=== PATIENT | female | born 1965 | race Caucasian/White ===

== ENCOUNTER 2023-05-09 10:05 | Outpatient (OUT) | payer OTHER, SELFPAY ==
--- NOTE | 2023-05-09 10:07 | MM_ITS ---
Patient: PAIGE LOCKETT Exam Date: 05/09/2023 : 1965 Gender:F Ordering : Non-Staff Physician Admission #: [id number] Family : AWAIS KHAN Order #: [id number] CLICK HERE TO VIEW EXAM RADIOLOGY REPORT PROCEDURE: MM TOMOSYNTHESIS SCREENING BI COMPARISON: MG MAMM SCREEN 3D [facility] CAD, 01/12/2021. MG MAMM SCREEN [facility] W CAD, 12/18/2017. MG MAMM [facility] SCRN W CAD DIG, 03/30/2016. MG MAMM [facility] SCRN W CAD DIG, 06/10/2009. INDICATIONS: Screening mammogram Z12.31 Calculator Name NCI Breast Cancer Risk Assessment Tool 5 Year Breast Cancer Risk 1.40% Lifetime Breast Cancer Risk 8.90% Personal Breast Cancer No Personal Ovarian Cancer No Treatments None Family Cancers None LOCATION: [facility] BREAST COMPOSITION: Almost entirely fatty. FINDINGS: DIAGNOSTIC CATEGORY 1--NEGATIVE. RIGHT BREAST: No significant suspicious finding. No significant change has occurred. LEFT BREAST: No significant suspicious finding. No significant change has occurred. RECOMMENDATIONS: ROUTINE MAMMOGRAM AND CLINICAL EVALUATION IN 12 MONTHS. PLEASE NOTE: A NORMAL MAMMOGRAM DOES NOT EXCLUDE THE POSSIBILITY OF BREAST CANCER. A CLINICALLY SUSPICIOUS PALPABLE LUMP SHOULD BE BIOPSIED. Dictated by: Neftaly Ayala M.D. on 05/10/2023 at 13:09 Approved by: Neftaly Ayala M.D. on 05/10/2023 at 13:11
== END 2023-05-09 10:06 | disposition home or self-care (01) ==
LOC: MAMMO 10:05
PROVIDERS: PCP Family Medicine
DX: Z12.31 Encounter for screening mammogram for malignant neoplasm of breast (principal)
CPT/HCPCS: 77063; 77067

== ENCOUNTER 2023-07-11 10:41 | Outpatient (OUT) | payer OTHER, SELFPAY ==
[2023-07-11 11:52] LABS: Alanine Aminotransferase 25 U/L (14-59); Albumin Globulin Ratio 0.8; Albumin Level 3.2 g/dL (3.4-5.0); Alkaline Phosphatase 62 U/L (46-116); Anion Gap 13.5; Aspartate Amino Transferase 13 U/L (15-37); BUN Creatinine Ratio 22.9; Bilirubin Total 0.4 mg/dL (0.2-1.0); Calcium 8.7 mg/dL (8.5-10.1); Carbon Dioxide 27.6 mmol/L (21.0-32.0); Chloride 104 mmol/L (98-107); Chol HDL Ratio 2.8; Cholesterol 159 mg/dL (<=200); Estimated GFR (African America >60 (>=60); Estimated GFR (Non-African Ame >60 (>=60); Globulin 4.2 g/dL; Glucose 109 mg/dL (74-106); HDL Cholesterol 57 mg/dL (40-60); Potassium 4.1 mmol/L (3.5-5.1); Sodium 141 mmol/L (136-145); Total Protein 7.4 g/dL (6.4-8.2); Triglycerides 158 mg/dL (<=150); VLDL CHOLESTEROL 31.6 mg/dL
== END 2023-07-11 10:42 | disposition home or self-care (01) ==
PROVIDERS: PCP Family Medicine
DX: R06.02 Shortness of breath (principal); R94.31 Abnormal electrocardiogram [ECG] [EKG]; E78.2 Mixed hyperlipidemia; R53.83 Other fatigue
CPT/HCPCS: 36415; 80053; 80061

== ENCOUNTER 2023-10-10 10:24 | Outpatient (OUT) | payer OTHER, SELFPAY ==
[2023-10-10 10:58] LABS: Basophils Percent Auto 0.6 % (0.2-2.0); Eosinophils Absolute Auto 0.1 10^3/uL (0.0-0.7); Hematocrit 39.5 % (36.0-48.0); Hemoglobin 12.6 g/dL (12.0-16.0); Immature Granulocytes Abs Auto 0.02 10^3/uL (0.00-0.03); Immature Granulocytes Pct Auto 0.3 % (0.0-0.5); Lymphocytes Absolute Auto 2.7 10^3/uL (1.2-3.8); Lymphocytes Percent Auto 40.7 % (20.5-60.0); Mean Corpuscular HGB Conc 31.9 g/dL (29.9-35.2); Mean Corpuscular Hemoglobin 28.6 pg (26.7-34.0); Mean Corpuscular Volume 89.6 fL (81.0-99.0); Mean Platelet Volume 11.6 fL (9.5-13.5); Monocytes Absolute Auto 0.5 10^3/uL (0.3-0.8); Monocytes Percent Auto 6.9 % (1.7-12.0); Neutrophils Absolute Auto 3.2 10^3/uL (1.4-6.5); Neutrophils Percent Auto 49.5 % (43.0-75.0); Platelet Count 259 10^3/uL (150-450); Red Blood Count 4.41 10^6/uL (4.20-5.40); Red Cell Distribution Width 13.2 % (11.0-15.0); White Blood Count 6.5 10^3/uL (4.0-11.0)
[2023-10-10 11:18] LABS: Alanine Aminotransferase 24 U/L (14-59); Albumin Globulin Ratio 0.8; Albumin Level 3.3 g/dL (3.4-5.0); Alkaline Phosphatase 63 U/L (46-116); Anion Gap 14.5; Aspartate Amino Transferase 16 U/L (15-37); BUN Creatinine Ratio 23.4; Bilirubin Direct 0.1 mg/dL (0.0-0.2); Bilirubin Total 0.5 mg/dL (0.2-1.0); Calcium 8.9 mg/dL (8.5-10.1); Carbon Dioxide 28.4 mmol/L (21.0-32.0); Chloride 105 mmol/L (98-107); Estimated GFR (African America >60 (>=60); Estimated GFR (Non-African Ame >60 (>=60); Globulin 4.1 g/dL; Glucose 134 mg/dL (74-106); Potassium 3.9 mmol/L (3.5-5.1); Sodium 144 mmol/L (136-145); Total Protein 7.4 g/dL (6.4-8.2)
[2023-10-10 11:40] LABS: Chol HDL Ratio 2.7; Cholesterol 156 mg/dL (<=200); Estimated Average Glucose 137 mg/dL; Glycohemoglobin A1C 6.4 % (4.5-6.2); HDL Cholesterol 57 mg/dL (40-60); Triglycerides 166 mg/dL (<=150); VLDL CHOLESTEROL 33.2 mg/dL
== END 2023-10-10 10:25 | disposition home or self-care (01) ==
LOC: LAB 10:25
PROVIDERS: PCP Family Medicine; Visit Provider Family Medicine
DX: E78.00 Pure hypercholesterolemia, unspecified (principal); R73.02 Impaired glucose tolerance (oral)
CPT/HCPCS: 36415; 80048; 80061; 80076; 83036; 85025

== ENCOUNTER 2024-02-05 11:22 | Outpatient (OUT) | payer OTHER, SELFPAY ==
[2024-02-05 12:38] LABS: Estimated Average Glucose 120 mg/dL; Glycohemoglobin A1C 5.8 % (4.5-6.2)
[2024-02-05 13:04] LABS: Alanine Aminotransferase 18 U/L (14-59); Albumin Globulin Ratio 0.9; Albumin Level 3.2 g/dL (3.4-5.0); Alkaline Phosphatase 67 U/L (46-116); Anion Gap 11.8; Aspartate Amino Transferase 11 U/L (15-37); Bilirubin Total 0.6 mg/dL (0.2-1.0); Calcium 9.3 mg/dL (8.5-10.1); Carbon Dioxide 28.3 mmol/L (21.0-32.0); Chloride 107 mmol/L (98-107); Chol HDL Ratio 3.3; Cholesterol 146 mg/dL (<=200); Estimated GFR (African America >60 (>=60); Estimated GFR (Non-African Ame >60 (>=60); Globulin 3.4 g/dL; Glucose 113 mg/dL (74-106); HDL Cholesterol 44 mg/dL (40-60); Potassium 3.1 mmol/L (3.5-5.1); Sodium 144 mmol/L (136-145); Total Protein 6.6 g/dL (6.4-8.2); Triglycerides 193 mg/dL (<=150); VLDL CHOLESTEROL 38.6 mg/dL
== END 2024-02-05 11:23 | disposition home or self-care (01) ==
LOC: LAB 11:24
PROVIDERS: PCP Family Medicine
DX: R06.02 Shortness of breath (principal); I11.9 Hypertensive heart disease without heart failure; E78.5 Hyperlipidemia, unspecified; I49.3 Ventricular premature depolarization; F17.200 Nicotine dependence, unspecified, uncomplicated; R73.03 Prediabetes
CPT/HCPCS: 36415; 80053; 80061; 83036

== ENCOUNTER 2024-02-05 11:28 | Outpatient (OUT) | payer OTHER, SELFPAY ==
[2024-02-05 12:23] LABS: Basophils Percent Auto 0.5 % (0.2-2.0); Eosinophils Absolute Auto 0.1 10^3/uL (0.0-0.7); Eosinophils Percent Auto 1.7 % (0.9-7.0); Hemoglobin 13.1 g/dL (12.0-16.0); Immature Granulocytes Abs Auto 0.02 10^3/uL (0.00-0.03); Immature Granulocytes Pct Auto 0.3 % (0.0-0.5); Lymphocytes Absolute Auto 1.9 10^3/uL (1.2-3.8); Lymphocytes Percent Auto 31.7 % (20.5-60.0); Mean Corpuscular Hemoglobin 28.2 pg (26.7-34.0); Mean Corpuscular Volume 88.2 fL (81.0-99.0); Mean Platelet Volume 12.9 fL (9.5-13.5); Monocytes Absolute Auto 0.3 10^3/uL (0.3-0.8); Neutrophils Absolute Auto 3.7 10^3/uL (1.4-6.5); Neutrophils Percent Auto 60.8 % (43.0-75.0); Platelet Count 231 10^3/uL (150-450); Red Blood Count 4.65 10^6/uL (4.20-5.40); Red Cell Distribution Width 13.6 % (11.0-15.0); White Blood Count 6.1 10^3/uL (4.0-11.0)
[2024-02-05 12:57] LABS: Bilirubin Direct 0.2 mg/dL (0.0-0.2)
== END 2024-02-05 11:29 | disposition home or self-care (01) ==
LOC: LAB 11:30
PROVIDERS: PCP Family Medicine
DX: R06.02 Shortness of breath (principal); I11.9 Hypertensive heart disease without heart failure; E78.5 Hyperlipidemia, unspecified; I49.3 Ventricular premature depolarization; F17.200 Nicotine dependence, unspecified, uncomplicated; R73.03 Prediabetes; K91.2 Postsurgical malabsorption, not elsewhere classified; Z98.84 Bariatric surgery status
CPT/HCPCS: 36415; 80053; 80061; 82248; 82306; 82607; 82746; 83036; 83540; 84425; 85025

== ENCOUNTER 2024-03-03 11:53 | Emergency (ER) | payer OTHER, SELFPAY ==
[2024-03-03 12:01] VITALS: BP 155/113; PULSE 94; TEMP 37.1; O2SAT 96; BMI 45.9
--- NOTE | 2024-03-03 12:05 | CT_ITS ---
[address] [address] Patient Name: PAIGE LOCKETT MRN: [id number] date: 1965 Sex: F Assigned Patient Location: ER Current Patient Location: ER Accession/Order Number: [id number] Exam Date: 03/03/2024 12:20 Report Date: 03/03/2024 12:48 At the request of: PLACIDO CUBA Procedure: CT abdomen pelvis wo con EXAMINATION: CT abdomen pelvis wo con HISTORY: hematuria , dysuria, lower abdominal pain COMPARISON: No relevant comparison available. TECHNIQUE: Axial, Coronal, and Sagittal images were obtained without and/or with IV contrast as indicated by examination type. Dose reduction techniques were achieved by using automated exposure control and/or adjustment of mA and/or kV according to patient size and/or use of iterative reconstruction technique. FINDINGS: LUNG BASES: No visible pulmonary or pleural disease. LIVER: No enlargement, atrophy, suspicious density, or significant focal lesion. BILIARY: Cholecystectomy. PANCREAS: No lesion, fluid collection, or abnormal duct dilatation. SPLEEN: No enlargement or focal lesion. ADRENALS: No mass or enlargement. KIDNEYS: No mass, obstruction, or calcification. BOWEL/MESENTERY: Prior gastric bypass surgery. No visible mass, obstruction, or bowel wall thickening. Mild diverticulosis of distal colon. AORTA/VASCULAR: No aneurysm or dissection. RETROPERITONEUM: No mass or adenopathy. LYMPH NODES: No adenopathy. URINARY BLADDER: Completely empty. No visible focal wall thickening, lesion, or calculus. PELVIC ORGANS: No visible mass. Pelvic organs appropriate for patient age. ABDOMINAL WALL: No mass or hernia. BONES: No bony lesion or fracture. OTHER: Negative. CT/CT abdomen pelvis wo con IMPRESSION: 1. No urinary tract calculi, mass, obstructive uropathy. 2. Limited evaluation of the urinary bladder since it is completely empty. No stones or appreciable wall thickening. 3. Prior gastric bypass surgery. 4. Mild colonic diverticulosis. Electronically authenticated by: KATE CARLOS Date: 03/03/2024 12:48
[2024-03-03 12:42] LABS: Bilirubin Urine COLOR INTERFERENCE (NEGATIVE); Blood Urine COLOR INTERFERENCE (NEGATIVE); Clarity Urine CLOUDY (CLEAR); Color Urine DK. BROWN (YELLOW); Glucose Urine UA COLOR INTERFERENCE mg/dL (NEGATIVE); Ketones Urine COLOR INTERFERENCE mg/dL (NEGATIVE); Leukocyte Esterase Urine COLOR INTERFERENCE (NEGATIVE); Nitrite Urine COLOR INTERFERENCE (NEGATIVE); Protein Urine COLOR INTERFERENCE mg/dL (NEG/TRACE); Urine Microscopic Indicated YES; Urobilinogen Urine COLOR INTERFERENCE EU/dL (0.2-1.0); pH Urine COLOR INTERFERENCE (5.0-9.0)
[2024-03-03 12:47] LABS: Bacteria Urine SMALL #/HPF (NONE SEEN); Cast Seen? NONE SEEN #/LPF (NONE SEEN); Crystals Seen? None Seen #/HPF (None Seen); Mucus Urine NONE SEEN (NONE SEEN); RBC Urine >100 #/HPF (0-2); Squamous Epithelial Cell Urine RARE #/LPF (NONE/RARE); Urine Culture Indicated YES
[2024-03-03] MEDS: PHENAZOPYRIDINE 100 MG TABLET 200 MG PO (14:09)
[2024-03-03] MEDS: CIPROFLOXACIN HCL 500 MG TABLET PO (14:09)
--- NOTE | 2024-03-03 14:11 | ED_ITS ---
HPI - Female Genitourinary General Chief complaint: Urogenital-Female Stated complaint: BLOOD IN URINE Time Seen by Provider: 03/03/24 12:05 Source: patient Mode of arrival: walk-in Limitations: no limitations History of Present Illness HPI Narrative: The patient presenting to us with a 24 hours history of hematuria and burning with urination, she is denying any vaginal bleeding or rectal bleeding she mentioned that he have a history of hysterectomy, she also have no flank pain or abdominal pain no nausea no vomiting no fever no chills no other concerns. Related Data Home Medications ?Medication ?Instructions ?Recorded ?Confirmed albuterol sulfate 2.5 mg/3 mL 2.5 mg inhalation PRN 03/03/24 03/03/24 (0.083 %) solution for nebulization cyanocobalamin (vitamin B-12) 1,000 mcg PO DAILY 03/03/24 03/03/24 1,000 mcg sublingual tablet hydrochlorothiazide 50 mg tablet 50 mg PO PRN feet swelling 03/03/24 03/03/24 lisinopril 40 mg tablet 40 mg PO DAILY 03/03/24 03/03/24 montelukast 10 mg tablet 10 mg PO PRN 03/03/24 03/03/24 omeprazole 40 mg capsule,delayed 40 mg PO BID 03/03/24 03/03/24 release vitamin with calcium 1 tab PO DAILY 03/03/24 03/03/24 no.72-iron 27 mg-folic acid 1 mg tablet (WesTab Plus) rosuvastatin 40 mg tablet 40 mg PO DAILY 03/03/24 03/03/24 Previous Rx's ?Medication ?Instructions ?Recorded ciprofloxacin HCl 750 mg tablet 750 mg PO BID #10 tabs 03/03/24 phenazopyridine 200 mg tablet 200 mg PO Q8H PRN pain 3 days #10 03/03/24 (Pyridium) tabs Allergies Allergy/AdvReac Type Severity Reaction Status Date / Time cefuroxime [From Ceftin] Allergy Intermediate Abdominal Verified 03/03/24 12:09 Pain sertraline [From Zoloft] Allergy Intermediate Verified 03/03/24 12:09 silk Allergy Intermediate Blister Verified 03/03/24 12:09 tramadol [From Ultram] Allergy Intermediate Hives Verified 03/03/24 12:09 NSAIDS (Non-Steroidal Allergy Mild Verified 03/03/24 12:09 Anti-Inflamma Review of Systems ROS Status of ROS 10 or more systems reviewed and unremark able except as noted in history and below Exam Narrative Exam Narrative: Nurses notes and vital signs reviewed and patient is not hypoxic. General: Well-appearing and in no apparent distress. Skin: Warm, dry, no pallor noted. No rash. Head: Normocephalic, atraumatic. Neck: Supple, non-tender. Eye: Pupils are equal, round and EOMI. No scleral icterus. Ears, Nose, Mouth, and Throat: TM are clear, no nasal mucosal hypertrophy. Ora l mucosa is moist, no posterior oropharynx erythema, uvula is mid-line Cardiovascular: Regular Rate and Rhythm without murmur, gallop or rub. Respiratory: No accessory muscle use or respiratory distress. Lungs are clear to auscultation, no wheezing, rales or rhonchi Chest Wall: no tenderness Back: No midline thoracic or lumbar vertebral tenderness. No CVA tenderness Musculoskeletal: normal ROM, no calf or popliteal tenderness, no lower extremity edema/swelling GI: Abdomen is soft, non-distended. Normal bowel sounds. No masses appreciated. No tenderness to palpation. No rebound, guarding, or rigidity noted. Neurological: A&O x4. No cranial nerve dysfunction observed. No truncal ataxia. Moves all extremities. Sensation intact. Psychiatric: Cooperative and interactive. Normal mood and affect. Pelvic examination The patient have no source of bleeding found on examination, no foreign body and no rash and no discharge Constitutional Vital Signs, click to edit/add: Last Vital Signs Temp 98.8 F 03/03/24 12:01 Pulse 94 H 03/03/24 12:01 Resp 20 03/03/24 12:01 BP 155/113 H 03/03/24 12:01 Pulse Ox 96 03/03/24 12:01 O2 Del Method Room Air 03/03/24 12:01 Course Vital Signs Vital signs: Vital Signs Temperature 98.8 F 03/03/24 12:01 Pulse Rate 94 H 03/03/24 12:01 Respiratory Rate 20 03/03/24 12:01 Blood Pressure 155/113 H 03/03/24 12:01 Pulse Oximetry 96 03/03/24 12:01 Oxygen Delivery Method Room Air 03/03/24 12:01 Temperature 98.8 F 03/03/24 12:01 Pulse Rate 94 H 03/03/24 12:01 Respiratory Rate 20 03/03/24 12:01 Blood Pressure 155/113 H 03/03/24 12:01 Pulse Oximetry 96 03/03/24 12:01 Oxygen Delivery Method Room Air 03/03/24 12:01 MDM - Female Genitourinary MDM Narrative Medical decision making narrative: The patient urinalysis is showing possible infection with the patient presentation hematuria should be covered with ciprofloxacin as she have allergy to Ceftin Urine culture was sent CT abdomen pelvis showed no acute pathology the patient was treated with Pyridium as well as Cipro Instructed on hydration The patient is to follow up with primary care physician in next 2-3 days or to return to the emergency department should any of the signs or symptoms worsen or new symptoms develop. The patient agrees with the following Diagnosis and Treatment plan and the patient will be discharged home. Lab Data Labs: Lab Results 03/03/24 Range/Units 12:00 Urine Color Dk. brown (YELLOW) Urine Clarity Cloudy A (CLEAR) Urine pH Color interference A (5.0-9.0) Ur Specific [place] 1.020 (1.005-1.025) Urine Protein Color interference A (NEG/TRACE) mg/dL Urine Glucose (UA) Color interference A (NEGATIVE) mg/dL Urine Ketones Color interference A (NEGATIVE) mg/dL Urine Occult Blood Color interference A (NEGATIVE) Urine Nitrite Color interference A (NEGATIVE) Urine Bilirubin Color interference A (NEGATIVE) Urine Urobilinogen Color interference A (0.2-1.0) EU/dL Ur Leukocyte Esterase Color interference A (NEGATIVE) Urine RBC >100 A (0-2) #/HPF Urine WBC 5-10 A (NONE SEEN) #/HPF Ur Squamous Epith Cells Rare (NONE/RARE) #/LPF Urine Crystals None seen (None Seen) #/HPF Urine Bacteria Small A (NONE SEEN) #/HPF Urine Casts None seen (NONE SEEN) #/LPF Urine Mucus None seen (NONE SEEN) Ur Culture Indicated? Yes Discharge Plan Discharge Stand Alone Forms: Portal Instructions Chief Complaint: Urogenital-Female Clinical Impression: Cystitis Urinary tract infection Qualifiers: Urinary tract infection type: acute cystitis Hematuria presence: with hematuria Qualified Code(s): N30.01 - Acute cystitis with hematuria Patient Disposition: Home, Self-Care Time of Disposition Decision: 14:05 Condition: Good Prescriptions / Home Meds: New phenazopyridine [Pyridium] 200 mg tablet 200 mg PO Q8H PRN (Reason: pain) 3 Days Qty: 10 0RF ciprofloxacin HCl 750 mg tablet 750 mg PO BID Qty: 10 0RF Discontinued ondansetron HCl 4 mg tablet 4 mg PO PRN No Action albuterol sulfate 2.5 mg /3 mL (0.083 %) solution for nebulization 2.5 mg inhalation PRN cyanocobalamin (vitamin B-12) 1,000 mcg tablet, sublingual 1,000 mcg PO DAILY hydrochlorothiazide 50 mg tablet 50 mg PO PRN lisinopril 40 mg tablet 40 mg PO DAILY montelukast 10 mg tablet 10 mg PO PRN omeprazole 40 mg capsule,delayed release(DR/EC) 40 mg PO BID WesTab Plus 27 mg iron- 1 mg tablet 1 tab PO DAILY rosuvastatin 40 mg tablet 40 mg PO DAILY Patient Comments: 1/2 pill due to joint pain Print Language: Trinidadian Instructions: Urinary Tract Infection in Women (DC) Referrals: AWAIS KHAN [Primary Care Provider] - 1 week
[2024-03-03 14:18] VITALS: BP 154/87; PULSE 87; O2SAT 99
== END 2024-03-03 14:19 | disposition home or self-care (01) ==
PROVIDERS: Emergency Provider Emergency Medicine; PCP Family Medicine
DX: N30.01 Acute cystitis with hematuria (principal); Z90.710 Acquired absence of both cervix and uterus; Z90.49 Acquired absence of other specified parts of digestive tract; Z98.84 Bariatric surgery status; K57.30 Diverticulosis of large intestine without perforation or abscess without bleeding
CPT/HCPCS: 74176; 81001; 81003; 87086; 87150; 87186; 99284

== ENCOUNTER 2024-04-07 10:06 | Outpatient (OUT) | payer OTHER, SELFPAY ==
--- OUTSIDE RECORDS SUMMARY | 2024-04-07 10:30 | XMS_ITS | CCD ---
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 Name Role Phone Oberer, Awais Unavailable [facility] [place] ULLOA Primary Care Unavailable LAWRENCE, DR LEEROY Ascencio Admitting Unavailabl e LAWRENCE, DR LEEROY Ascencio Attending Unavailabl e LAWRENCE, DR LEEROY Ascencio Consulting Unavailabl e PARVIN PINTO Consulting Unavailable ROBBI CORREIA Consulting Unavailable Oberer, DO Awais Primary Care Provider Oberer, DO Awais Attending Provider Oberer, Awais L Unavailable Unavailable Unavailable MD Terese Braxton Attending Provider [phone] Oberer, DO Awais Primary Care Provider Oberer, DO Awais Attending Provider MD Terese Braxton Attending Provider Oberer, DO Awais Primary Care Provider [phone] Cathy Covarrubias Unavailable Oberer, DO Awais Primary Care Provider [phone] MD Terese Braxton Attending Provider Oberer, DO Awais Referring Provider MD Abena Henao Attending Provider Oberer, DO Awais Primary Care Provider [phone] MD Terese Braxton Attending Provider Oberer, DO Awais Attending Provider [phone] MD López Kidd Referring Provider [phone] Fox, Dr. Gudino Attending Unavailable Oberer, Dr. Awais Jolley Primary Care Unavailable Braxton, Dr. Gudino Referring Unavailable Braxton, Dr. Gudino Attending Unavailable Oberer, Dr. Awais Jolley Primary Care Unavailable Braxton, Dr. Gudino Attending Unavailable Oberer, Dr. Awais Jolley Primary Care Unavailable Braxton, Dr. Gudino Attending Unavailable Oberer, Dr. Awais Jolley Primary Care Unavailable Chaban, Kamal Unavailable Oberer, DO Awais Primary Care Provider [phone] MD Terese Braxton Attending Provider [phone] Terese Braxton Referring Unavailable Terese Braxton Attending Unavailable Oberer, Dr. Awais Jolley Primary Care Unavailable Terese Braxton Referring Unavailable Terese Braxton Attending Unavailable Oberer, Dr. Awais Jolley Primary Care Unavailable Jose Luis Braxtona Referring Unavailable Terese Braxton Attending Unavailable Oberer, Dr. Awais Jolley Primary Care Unavailable Terese Braxton Referring Unavailable Oberer, Dr. Awais Jolley Primary Care Unavailable Terese Braxton Attending Unavailable Oberer Awais VELÁSQUEZ Primary Care Provider Oberer Awais VELÁSQUEZ Primary Care Provider Juliano, Abena Admitting Unavailable Juliano, Abena Attending Unavailable Oberer, Awais Primary Care Unavailable Oberer, Awais Referring Unavailable Oberer, Awais Admitting Unavailable Oberer, Awais Primary Care Unavailable López Kidd Referring Unavailable Oberer, Awais Attending Unavailable Braxton, Terese Attending Unavailable Braxton, Terese Admitting Unavailable Oberer, Awais Primary Care Unavailable Braxton, Terese Admitting Unavailable Braxton, Terese Attending Unavailable Oberer, Awais Primary Care Unavailable Braxton, Terese Admitting Unavailable Braxton, Terese Attending Unavailable Oberer, Awais Primary Care Unavailable Braxton, Terese Admitting Unavailable Braxton, Terese Attending Unavailable Oberer, Awais Primary Care Unavailable Oberer, Awais Admitting Unavailable Oberer, Awais Primary Care Unavailable Oberer, Awais Attending Unavailable Oberer DO, Awais Shola Primary Care Provider TERESE BRAXTON Attending Unavailable OBERER, AWAIS SHOLA Primary Care Unavailable TERESE BRAXTON Attending Unavailable TERESE BRAXTON Referring Unavailable OBERER, AWAIS SHOLA Primary Care Unavailable LEONIDES FULLER Attending Unavailable OBERER, AWAIS Referring Unavailable OBERER, AWAIS Primary Care Unavailable ÓLPEZ KIDD Referring Unavailable OBERER, AWAIS Primary Care Unavailable OBERER, AWAIS Referring Unavailable OBERER, AWAIS Primary Care Unavailable LÓPEZ KIDD Attending Unavailable LÓPEZ KIDD Referring Unavailable OBERER, AWAIS Primary Care Unavailable LÓPEZ KIDD Admitting Unavailable LÓPEZ KIDD Attending Unavailable OBERER, AWAIS Primary Care Unavailable JARROD ROMERO Attending Unavailable OBERER, AWAIS Primary Care Unavailable MELISSA MURO Attending Unavailable OBERER, AWAIS Referring Unavailable OBERER, AWAIS Primary Care Unavailable YOLI CHA Attending Unavailable OBERER, AWAIS Referring Unavailable OBERER, AWAIS Primary Care Unavailable JUANA BUSH Attending Unavailable OBERER, AWAIS Referring Unavailable OBERER, AWAIS Primary Care Unavailable Allergies Allergy Classification Reported Allergen(s) Allergy Type Date of Onset Reaction(s) Facility (14 sources) Altretamine Drug Allergy Unknown [facility] Other (14 sources) Bacitracin Drug Allergy yeast infection [facility] Other (20 sources) Cefuroxime; Translations: [Ceftin TABS] Drug Allergy 01-31-20 Unknown, diarrhea, Rash [facility] (14 sources) Ibuprofen Drug Allergy insomnia [facility] Other (20 sources) pregabalin; Translations: [PREGABALIN] Drug Allergy 01-31-20 Abnormal Behavior [facility] (20 sources) Sertraline; Translations: [Zoloft] Drug Allergy 01-31-20 Confusion, Other (See Comments) [facility] (20 sources) traMADol; Translations: [Ultram] Drug Allergy 01-31-20 hives [facility] (14 sources) Beeswax Drug allergy Unknown [facility] Other (14 sources) Bees Propensity to adverse reactions swelling [employer] [facility] Other (9 sources) Sertraline Drug Allergy Unknown [employer] [facility] Other (12 sources) Aspirin; Translations: [ASPIRIN] Drug Allergy 08-12-20 15 unable to take because of clotting disorder [facility] Repository (1 source) bee venom Drug allergy (disorder) 11-01-19 17 [facility] Repository (1 source) Cefuroxime Drug Allergy 08-12-20 15 [facility] Repository (3 sources) gabapentin; Translations: [GABAPENTIN] Drug Allergy 08-12-20 15 [facility] Repository (1 source) pregabalin Drug Allergy 08-12-20 15 [facility] Repository (1 source) Sertraline Drug Allergy 08-12-20 15 [facility] Repository (1 source) traMADol Drug Allergy 08-12-20 15 [facility] Repository (10 sources) Adhesive Tape; Translations: [adhesive tape] Allergy to substance 01-31-20 Redness of Skin [facility] (10 sources) venom-honey bee; Translations: [venom-honey bee] Allergy to substance 01-31-20 21 Swelling [facility] (10 sources) NSAIDS (Non-Steroidal Anti-Inflamma; Translations: [NSAIDS (Non-Steroidal Anti-Inflamma] Propensity to adverse reactions 01-31-20 21 unable to take because of clotting disorder [facility] (9 sources) apis mellifera venom Allergy to substance (finding) [facility] [address] DO Work Phone: (13 sources) Aspirin; Translations: [aspirin] Drug Allergy 07-31-20 Unknown, Other (See Comments) [facility] (14 sources) gabapentin; Translations: [gabapentin] Drug Allergy 02-08-20 23 Drowsiness, Other (See Comments) [facility] [employer] 250 DO Work Phone: (10 sources) natural latex rubber; Translations: [LATEX] Allergy to substance (finding) 07-31-20 23 [place] [address] Repository (9 sources) NSAIDs; Translations: [NSAIDs] [facility] drug (finding) [facility] Work Phone: (9 sources) Sulfamethoxazole / Trimethoprim; Translations: [Bactrim] Drug Allergy [facility] 250 DO Work Phone: (7 sources) Cefuroxime; Translations: [CEFUROXIME AXETIL] Drug Allergy 02-08-20 [facility] Work Phone: (2 sources) Latex Propensity to adverse reactions 07-31-20 [facility] Work Phone: (7 sources) Non-steroidal anti-inflammatory agent; Translations: [NSAIDS (NON-STEROIDAL ANTI-INFLAMMATORY DRUG)] Propensity to adverse reactions 07-31-20 Unknown, Other (See Comments) [facility] Work Phone: (6 sources) Bee Venom Protein (Honey Bee); Translations: [BEE VENOM PROTEIN (HONEY BEE)] Propensity to adverse reactions 07-31-20 [facility] Work Phone: (2 sources) FLUoxetine; Translations: [FLUOXETINE] Drug Allergy 02-08-20 Other (See Comments) [facility] (4 sources) Other; Translations: [OTHER] Propensity to adverse reactions 11-06-19 Other (See Comments) [facility] [employer] [employer] [facility] (3 sources) Adhesive Tape-Silicones; Translations: [ADHESIVE TAPE-SILICONES] Propensity to adverse reactions to drug 11-20-19 [facility] [employer] [facility] (1 source) Aspirin Drug Allergy 11-19-19 [facility] Repository (1 source) Cefuroxime Drug Allergy 11-19-19 [facility] Repository (1 source) pregabalin Drug Allergy 11-19-19 [facility] Repository (1 source) Sertraline Drug Allergy 11-19-19 [facility] Repository (1 source) traMADol Drug Allergy 11-19-19 [facility] Repository Medications Current Medications Medication Drug Class(es) Dates Sig (Normalized) Sig (Original) acetaminophen 500 mg oral tablet (20 sources) Start: 03-27-2023 take 500 mg by mouth every six hours Acetaminophen Active 500 MG PO Q6H March 27, 2023 12:00am take 2 tablets by mo ut in the morning, then take 2 tablets by mouth at bedtime acetaminophen (TYLENOL EXTRA STRENGTH) 500 mg tablet Take 2 tablets (1,000 mg total) by mouth in the morning and 2 tablets (1,000 mg total) before bedtime. 0 Active take 4 tablets by mo [facility] every twelve hours Acetaminophen 500 MG 4 tablets Orally BI D Active [id number] 200 actuat albuterol 0.09 mg/actuat metered dose inhaler (20 sources) beta2-Adrenergic Agonist Start: 03-28-2023 Albut jose Sulfate (Ventolin Hfa) 90 mcg/actuation Hfa Aerosol Inhaler Active 1 INH INHALATION Once March 28, 2023 12:00am Start: 01-18-2023 take 3 mL by inhalat ion every four hours as needed for wheezing albuterol (PROVENTIL,VENTOLIN) 2.5 mg /3 mL (0.083 %) nebulizer solution INHALE 3 (THREE) mL (1 (ONE) vial) VIA NEBULIZER NEEDED FOR WHEEZING EVERY 4 HOURS 0 01/18/2023 Active Start: 01-18-2023 take 2 puff(s) by mo ut every four hours as needed for wheezing VENTOLIN HFA 90 mcg/actuation inhaler INHALE 2 PUFFS BY MOUTH NEEDED FOR WHEEZING EVERY 4 HOURS 0 01/18/2023 Active Start: 01-23-2021 End: 03-27-2023 Albuterol Sulfate Discontinu ed 2 INH INHALATION Four times daily January 23, 2021 12:00am March 27, 2023 4:11pm albuterol 5 mg/m L nebulizer solution Take by nebulization. Use 0.5 ml in 2-3 ml of saline every 4-6 hours as needed for cough and wheeze Active take 1-2 puff(s) by inhalation every four to six hours as needed albuterol 90 mcg/actuation inhaler Inhale 1-2 puffs. 4-6 hours as needed Active Albuterol Sulfat e (5 MG/ML) 0.5% Inhalation Nebulization Solution USE 0.5ML IN 2 TO 3 ML OF SALINE EVERY 4 TO 6 HOURS NEEDED FOR COUGH AND WHEEZE. Quantity: 0 Refills: 0 Ordered: 22-Nov-2022 DO Active take 1-2 puff(s) by inhalation every four to six hours as needed Ventolin HFA 108 (90 Base) MCG/ACT Inhalation Aerosol Solution INHALE 1 TO 2 PUFFS EVERY 4 TO 6 HOURS NEEDED. Quantity: 0 Refills: 0 Ordered: 22-Nov-2022 DO Active Albuterol Sulfat e (2.5 MG/3ML) 0.083% 3 ml via nebulizer prn wheeze Inhalation every 4 hrs for 90 days Active amoxicillin 875 mg oral tablet (2 sources) Penicillin-class Antibacterial Start: 10-14-2023 take 1 tablet by mouth every twelve hours Amoxicillin 875 MG 1 capsule Orally Twice a day for 10 days Sep, Active amoxicillin 875 mg / clavulanate 125 mg oral tablet (6 sources) Penicillin-class Antibacterial Start: 01-29-2022 take 1 tablet by mouth every twelve hours Amoxicillin-Pot Clavulanate 875-125 MG 1 tablet Orally every 12 hrs for 10 day(s) Jan, Active azithromycin 500 mg oral tablet (4 sources) Macrolide Antimicrobial Start: 01-18-2022 take 1 tablet by mouth every twenty-four hours Zithromax Tri-Sina 500 MG 1 tablet Orally Daily for 3 days Dec, Active calcium citrate 1500 mg / cholecalciferol 200 unt oral tablet (1 source) Vitamin D take 1 tablet by mouth every week calcium citrate-vitamin D3 (Citracal+D) 315 mg-5 mcg (200 unit) tablet Take 1 tablet by mouth 1 (one) time per week. Active cholecalciferol 1.25 mg oral capsule (4 sources) Vitamin D Start: 01-14-2024 take 1 capsule by mouth every week cholecalciferol (Vitamin D-3) 50,000 unit capsule Take 1 capsule (50,000 Units) by mouth 1 (one) time per week. 01/14/2024 Active Start: 11-26-2023 take 1 tablet by demetrio th every week cholecalciferol, vitamin D3, 50,000 units tablet Indications: Vitamin D deficiency Take 1 tablet (50,000 Units total) by mouth once a week. 12 tablet 0 11/26/2023 Active Start: 05-06-2023 End: 11-06-2023 take 1 tablet by mouth every week cholecalciferol, vitamin D3, 50,000 units tablet Indications: Vitamin D deficiency Take 1 tablet (50,000 Units total) by mouth once a week. 12 tablet 0 05/06/2023 11/06/2023 Discontinued diclofenac sodium 0.01 mg/mg topical gel (20 sources) Nonsteroidal Anti-inflammatory Drug Start: 01-18-2023 diclofenac sodium (VOLTAREN) 1 % gel APPLY TO THE AFFECTED AREA(S) THREE TIMES DAILY NEEDED 0 01/18/2023 Active Start: 01-23-2021 Diclofenac Sod ium Active 1 EACH TOPICAL Daily January 23, 2021 12:00am Diclofenac Sodiu m 1 % GEL APPLY SPARINGLY TO AFFECTED AREA(S) ONCE DAILY Quantity: 0 Refills: 0 Ordered: 22-Nov-2022 DO Active Flovent Diskus 250 MCG/BLIST (6 sources) take 1 puff(s) by inhalation twice daily Flovent Diskus 250 MCG/BLIST 1 puff Inhalation Twice a day for 90 days Active take 1 puff(s) by inhalation twi ce daily Flovent Diskus 250 MCG/BLIST 1 puff Inhalation Twice a day for 30 days Active fluconazole 150 mg oral tablet (2 sources) Azole Antifungal Start: 10-14-2023 Diflucan 150 MG 1 tablet Orally Take one pill if yeast infection occurs for 1 days Sep, Active 60 actuat fluticasone propionate 0.25 mg/actuat dry powder inhaler (20 sources) Corticosteroid Start: 01-23-2021 Fluticasone Pr opionate Active 1 SPRAY INTRANASAL Daily at bedtime January 23, 2021 12:00am Start: 01-23-2021 Fluticasone Pr opionate (Flovent Diskus) 250 mcg/actuation blister with device Active 2 INH INHALATION Daily at bedtime January 23, 2021 12:00am Start: 01-03-2021 take 2 spray(s) nasa l route once daily Fluticasone Propionate 50 MCG/ACT 2 spray in each nostril Nasally Once a day for 30 days Dec, Active Start: 09-20-2020 take 1 puff(s) by in halation twice daily Flovent Diskus 250 MCG/BLIST 1 puff Inhalation Twice a day for 30 days Aug, Active take 1 puff(s) by mo [facility] twice daily fluticasone (Flovent Diskus) 100 mcg/actuation diskus inhaler Inhale 1 puff 2 times a day. Rinse mouth with water after use to reduce aftertaste and incidence of candidiasis. Do not swallow. Active take 1 puff(s) by in halation in the morning fluticasone propionate (FLOVENT HFA) 220 mcg/actuation inhaler Inhale 1 puff in the morning and 1 puff before bedtime. 0 Active take 1 puff(s) by in halation twice daily Flovent Diskus 250 MCG/ACT 1 puff Inhalation Twice a day for 90 days Active Fluticasone Prop ionate 50 MCG/ACT INHALE 2 (TWO) sprays IN EACH NOSTRIL EVERY DAY Nasally Once a day for 90 days Active Flovent Diskus 1 00 MCG/ACT Inhalation Aerosol Powder Breath Activated USE ONE INHALATION TWICE A DAY Quantity: 0 Refills: 0 Ordered: 22-Nov-2022 DO Active take 1 spray(s) nasa l route once daily Flonase 50 MCG/ACT SUSP INSTILL 1 SPRAY INTO EACH NOSTRIL EVERY DAY Quantity: 0 Refills: 0 Ordered: 22-Nov-2022 DO Active hydroCHLOROthiazide 50 mg oral tablet (20 sources) Thiazide Diuretic Start: 01-18-2023 take 1 tablet by mouth once daily hydroCHLOROthiazide (HYDRODIURIL) 50 mg tablet Take 1 tablet (50 mg total) by mouth daily. 0 01/18/2023 Active Start: 05-06-2018 take 50 mg by mouth once daily Hydrochlorothiazide Active 50 MG PO Daily May 06, 2018 12:00am Start: 08-16-2017 take 25 mg by mouth once daily Hydrochlorothiazide Active 25 MG PO Daily May 06, 2018 12:00am lisinopril 40 mg oral tablet (20 sources) Angiotensin Converting Enzyme Inhibitor Start: 02-10-2024 End: 02-09-2025 take 1 tablet by mouth once daily lisinopril 40 mg tablet Indications: Hypertensive heart disease without CHF Take 1 tablet (40 mg) by mouth once daily. 90 tablet 3 02/10/2024 02/09/2025 Active Start: 01-21-2023 End: 02-10-2024 take 1 tablet by mouth in the morning lisinopriL (PRINIVIL,ZESTRIL) 40 mg tablet Take 1 tablet (40 mg total) by mouth in the morning. 0 01/21/2023 Active Start: 01-21-2023 take 1 tablet by demetrio th once daily Lisinopril 20 MG Oral Tablet TAKE 1 TABLET DAILY DIRECTED. Quantity: 90 Refills: 3 Ordered: 21-Jan-2023 Terese Braxton MD Start : 21-Jan-2023 Active dose change Start: 05-06-2018 take 20 mg by mouth once daily Lisinopril Active 20 MG PO Daily May 06, 2018 12:00am Start: 05-06-2018 take 10 mg by mouth once daily Lisinopril Active 10 MG PO Daily May 06, 2018 12:00am take 1 tablet by demetrio th every twelve hours Lisinopril 20 MG 1 tablet Orally BID for 30 days increased to 40mg per Dr. Braxton Active magnesium oxide 400 mg oral tablet (6 sources) Start: 02-10-2024 End: 02-09-2025 take 1 tablet by mouth once daily magnesium oxide (Mag-Ox) 400 mg tablet Indications: Hypertensive heart disease without CHF Take 1 tablet (400 mg) by mouth once daily. 90 tablet 3 02/10/2024 02/09/2025 Active Start: 07-15-2023 take 1 tablet by demetrio twice daily Magnesium Oxide 400 MG Oral Tablet TAKE 1 TABLET TWICE DAILY. Quantity: 180 Refills: 3 Ordered: 15-Jul-2023 Terese Braxton MD Start : 15-Jul-2023 Active menthol 0.04 mg/mg topical gel (2 sources) Start: 10-14-2023 Biofreeze 4 % 1 application as needed Externally Three times a day as needed joint pains for 30 days Sep, Active methylPREDNISolone 4 mg oral tablet (6 sources) Corticosteroid Start: 01-29-2022 methylPREDNISolone 4 MG as directed Orally as directed for 6 days Jan, Active montelukast 10 mg oral tablet (20 sources) Leukotriene Receptor Antagonist Start: 02-08-2020 take 1 tablet by mouth once daily montelukast (SINGULAIR) 10 mg tablet Take 1 tablet (10 mg total) by mouth nightly. 0 01/18/2023 Active omeprazole 40 mg delayed release oral capsule (20 sources) Proton Pump Inhibitor Start: 11-21-2023 take 1 capsule by mouth once daily before breakfast omeprazole (PriLOSEC) 40 mg capsule Take 1 capsule (40 mg total) by mouth every morning before breakfast. 90 capsule 1 11/21/2023 Active Start: 01-26-2023 take 1 capsule by mo uth twice daily 30 minutes before mealtime as needed, then take 1 capsule by mouth at breakfast as needed omeprazole (PriLOSEC) 40 mg capsule TAKE 1 CAPSULE BY MOUTH TWICE DAILY 30 MINUTES BEFORE MEALS NEEDED WITH one dose being before morning meal 0 01/26/2023 Active Start: 05-06-2018 take 40 mg by mouth once daily at bedtime Omeprazole Active 40 MG PO Daily at bedtime May 06, 2018 12:00am ondansetron 4 mg oral tablet (3 sources) Serotonin-3 Receptor Antagonist Start: 11-21-2023 End: 11-26-2023 take 1 tablet by mouth every six hours as needed for nausea ondansetron (ZOFRAN) 4 mg tablet Indications: Post-operative nausea and vomiting Take 1 tablet (4 mg total) by mouth every 6 (six) hours as needed for nausea or vomiting (post op nausea). 30 tablet 1 11/26/2023 Active PNV,calcium 10-ghpg-mhnhe acid ( VITAMIN PLUS LOW IRON) 27 mg iron- 1 mg tablet (1 source) Start: 12-16-2023 take 1 tablet by mouth in the morning PNV,calcium 36-akqi-ekkko acid ( VITAMIN PLUS LOW IRON) 27 mg iron- 1 mg tablet Indications: Postsurgical malabsorption , Malnutrition following gastrointestinal surgery , History of Da-en-Y gastric bypass Take 1 tablet by mouth in the morning. 90 tablet 3 12/16/2023 Active [id number] Fumarate-Fa () 28-800 mg-mcg Tablet (4 sources) Start: 03-28-2023 [id number] Fumarate-Fa () 28-800 mg-mcg Tablet Active TAB PO March 28, 2023 12:00am [id number] fumarate-FA () 28-800 mg-mcg tablet (1 source) Start: 03-28-2023 [id number] fumarate-FA () 28-800 mg-mcg tablet 03/28/2023 Active (4 sources) Active vit 10-iron fum-folic 65-1 mg tablet (3 sources) Start: 02-07-2023 take 1 tablet by mouth in the morning vit 10-iron fum-folic 65-1 mg tablet Indications: Morbid obesity (CMS-HCC) , Pre-op testing Take 1 tablet by mouth in the morning. 90 tablet 3 02/07/2023 Active rosuvastatin calcium 40 mg oral tablet (20 sources) HMG-CoA Reductase Inhibitor Start: 10-14-2023 take 1 tablet by mouth every twenty-four hours Rosuvastatin Calcium 10 MG 1 tablet Orally Once a day for 30 days Sep, Active Start: 03-27-2023 take 40 mg by mouth once daily Rosuvastatin Active 40 MG PO Daily March 27, 2023 12:00am Start: 01-18-2023 End: 02-09-2025 take 0.5 tablet by mouth once daily rosuvastatin (Crestor) 40 mg tablet Indications: Hyperlipemia, mixed Take 0.5 tablets (20 mg) by mouth once daily. 45 tablet 3 02/10/2024 02/09/2025 Active Start: 11-23-2022 take 1 tablet by demetrio th at bedtime Rosuvastatin Calcium 40 MG Oral Tablet TAKE 1 TABLET AT BEDTIME Quantity: 90 Refills: 3 Ordered: 23-Nov-2022 Terese Braxton MD Start : 23-Nov-2022 Active new start take 1 tablet by demetrio th every twenty-four hours Rosuvastatin Calcium 20 MG 1 tablet Orally Once a day for 30 days Active spironolactone 25 mg oral tablet (1 source) Aldosterone Antagonist Start: 02-10-2024 End: 02-09-2025 take 1 tablet by mouth once daily spironolactone (Aldactone) 25 mg tablet Indications: Hypertensive heart disease without CHF , Hypokalemia , Medication course changed Take 1 tablet (25 mg) by mouth once daily. 90 tablet 3 02/10/2024 02/09/2025 Active Completed/Discontinued Medications Medication Drug Class(es) Dates Sig (Normalized) Sig (Original) acetaminophen 325 mg / oxyCODONE hydrochloride 5 mg oral tablet (10 sources) Opioid Agonist Start: 11-21-2023 End: 11-26-2023 oxyCODONE-acetamino phen (PERCOCET) 5-325 mg per tablet Indications: Post-op pain Take 1 tablet by mouth every 4 (four) hours as needed for pain for up to 7 days. Max Daily Amount: 6 tablets 15 tablet 0 11/21/2023 11/26/2023 Discontinued (Therapy completed) Start: 01-30-2021 End: 03-27-2023 take 1-2 tablets by mouth every six hours as needed for pain Oxycodone-Acetaminophen (Percocet) 5-325 mg tablet Discontinued 2 TAB PO Q6H 30 7 January 30, 2021 March 27, 2023 4:12pm 1-2 tabs po q 6 hours prn pain Caffeine / Magnesium Salicylate (9 sources) Central Nervous System Stimulant, Methylxanthine Diurex TABS USE DIRECTED. Quantity: 0 Refills: 0 Ordered: 22-Nov-2022 DO Active cyclobenzaprine hydrochloride 10 mg oral tablet (1 source) Muscle Relaxant Start: End: take 1 tablet by mouth three times daily as needed for muscle spasms cyclobenzaprine (FLEXERIL) 10 mg tablet Take 1 tablet (10 mg total) by mouth 3 (three) times a day as needed for muscle spasms. 30 tablet 0 11/21/2023 11/26/2023 Discontinued (Therapy completed) DULoxetine 60 mg delayed release oral capsule (9 sources) Serotonin and Norepinephrine Reuptake Inhibitor Start: End: take 60 mg by mouth once daily Duloxetine Discontinued 60 MG PO Daily May 06, 2018 12:00am January 23, 2021 10:57am Durolane (14 sources) Start: Durolane Nov, 60 mg magnesium salicylate/caffeine (DIUREX ORAL) (2 sources) End: magnesium salicylate/caffeine (DIUREX ORAL) Take by mouth. Use as directed 02/10/2024 Discontinued (Cost of medication) magnesium salicy late/caffeine (DIUREX ORAL) Take by mouth. Use as directed 0 Active OXcarbazepine 300 mg oral tablet (9 sources) Anti-epileptic Agent Start: 05-06-2018 End: 01-23-2021 take 300 mg by mouth once daily Oxcarbazepine Discontinued 300 MG PO Daily May 06, 2018 12:00am January 23, 2021 10:59am pregabalin 75 mg oral capsule (9 sources) Start: 05-06-2018 End: 01-23-2021 take 1 capsule by mouth once daily Pregabalin (Lyrica) 75 mg capsule Discontinued 75 MG PO Daily May 06, 2018 12:00am January 23, 2021 10:56am tiZANidine 4 mg oral tablet (9 sources) Central alpha-2 Adrenergic Agonist Start: 05-06-2018 End: 01-23-2021 take 4 mg by mouth once daily Tizanidine Discontinued 4 MG PO Daily May 06, 2018 12:00am January 23, 2021 10:57am Triamcinolone (14 sources) Corticosteroid Start: 10-19-2020 Kenalog -40 mg Sep, 40 mg Problems Active Problems Problem Classification Problem Date Documented Da te Episodic/Chronic Abdominal pain (3 sources) Unspecified abdominal pain; Translations: [Epigastric pain] Episodic Administrative/social admission (17 sources) Follow-up status; Translations: [Other specified counseling] Onset: 3 03-28-2023 Episodic Asthma (20 sources) Acute severe exacerbation of asthma; Translations: [Asthma, unspecified with status asthmaticus] Onset: 9 Resolved: 2 Chronic Biliary tract disease (6 sources) Calculus of gallbladder with cholecystitis; Translations: [Calculus of gallbladder with chronic cholecystitis without obstruction] Episodic Cardiac dysrhythmias (5 sources) Multiple premature ventricular complexes; Translations: [Ventricular premature depolarization] Onset: 3 08-01-2023 Chronic Chronic obstructive pulmonary disease and bronchiectasis (1 source) Unspecified chronic bronchitis; Translations: [UNSPECIFIED CHRONIC BRONCHITIS] Onset: 2 Chronic Coagulation and hemorrhagic disorders (20 sources) Platelet count below reference range; Translations: [Thrombocytopenia, unspecified] Onset: 2 Resolved: 2 Chronic Complications of surgical procedures or medical care (15 sources) Postsurgical menopause; Translations: [Asymptomatic postprocedural ovarian failure] Onset: 4 11-26-2023 Chronic Diseases of mouth; excluding dental (1 source) Dry mouth, unspecified Episodic Disorders of lipid metabolism (20 sources) Hypercholesterolemia; Translations: [Pure hypercholesterolemia, unspecified] Onset: 2 Resolved: 2 Chronic E Codes: Fall (1 source) Unspecified fall, initial encounter Episodic Esophageal disorders (20 sources) Gastroesophageal reflux disease; Translations: [Gastro-esophageal reflux disease without esophagitis] Onset: 9 Resolved: 2 Chronic Essential hypertension (20 sources) Essential hypertension; Translations: [Essential (primary) hypertension] Onset: 2 Resolved: 2 Chronic Fluid and electrolyte disorders (4 sources) Hypokalemia; Translations: [Hypokalemia] Onset: 4 02-10-2024 Episodic Genitourinary symptoms and ill-defined conditions (6 sources) Increased frequency of urination; Translations: [Frequency of micturition] Episodic Hypertension with complications and secondary hypertension (12 sources) Hypertensive heart disease without congestive heart failure; Translations: [Unspecified hypertensive heart disease without heart failure] Onset: 3 08-01-2023 Chronic Joint disorders and dislocations; trauma-related (13 sources) Tear of lateral meniscus of knee; Translations: [Other tear of lateral meniscus, current injury, left knee, initial encounter] Onset: 2 Resolved: 2 Episodic Nausea and vomiting (4 sources) Postoperative nausea and vomiting; Translations: [Nausea with vomiting, unspecified] Onset: 4 11-26-2023 Episodic Nutritional deficiencies (4 sources) Vitamin D deficiency; Translations: [Vitamin D deficiency, unspecified] Onset: 4 11-22-2023 Chronic Osteoarthritis (20 sources) Osteoarthritis of left knee joint; Translations: [Unilateral primary osteoarthritis, left knee] Onset: 2 Resolved: 2 Chronic Other acquired deformities (14 sources) Acquired spondylolisthesis; Translations: [Spondylolysis, lumbar region] Episodic Other acquired deformities (1 source) Spondylolysis, lumbar region Episodic Other aftercare (14 sources) Long-term current use of drug therapy; Translations: [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] Episodic Other aftercare (7 sources) 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; Translations: [OTH 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 CURRENT DRUG THERAPY] Onset: 2 Resolved: 2 Episodic Other aftercare (8 sources) Treatment changed; Translations: [Long-term (current) use of other medications] Onset: 4 02-10-2024 Episodic Other and ill-defined heart disease (8 sources) Diastolic dysfunction; Translations: [Other ill-defined heart diseases] Chronic Other and ill-defined heart disease (1 source) Other ill-defined heart diseases Chronic Other connective tissue disease (14 sources) Fibromyalgia; Translations: [Fibromyalgia] Episodic Other connective tissue disease (3 sources) Fibromyalgia Onset: 2 Resolved: 2 Episodic Other diseases of veins and lymphatics (2 sources) Peripheral venous insufficiency; Translations: [Venous insufficiency (chronic) (peripheral)] Episodic Other diseases of veins and lymphatics (1 source) Venous insufficiency (chronic) (peripheral) Episodic Other ear and sense organ disorders (6 sources) Bilateral tinnitus; Translations: [Tinnitus, bilateral] Episodic Other gastrointestinal disorders (2 sources) History of bypass of stomach; Translations: [Bariatric surgery status] Onset: 4 02-10-2024 Episodic Other gastrointestinal disorders (3 sources) Bariatric surgery status; Translations: [Bariatric surgery status] Onset: 4 Episodic Other hereditary and degenerative nervous system conditions (14 sources) Essential tremor; Translations: [Essential tremor] Chronic Other hereditary and degenerative nervous system conditions (1 source) Essential tremor Chronic Other infections; including parasitic (1 source) Personal history of other infectious and parasitic diseases Episodic Other lower respiratory disease (1 source) Other forms of dyspnea Episodic Other nervous system disorders (6 sources) Carpal tunnel syndrome; Translations: [Carpal tunnel syndrome, bilateral upper limbs] Chronic Other nervous system disorders (6 sources) Chronic pain; Translations: [Other chronic pain] Chronic Other non-traumatic joint disorders (1 source) Pain in right elbow Episodic Other nutritional; endocrine; and metabolic disorders (13 sources) Morbid obesity; Translations: [Morbid (severe) obesity due to excess calories] 11-06-2023 Chronic Other nutritional; endocrine; and metabolic disorders (7 sources) Morbid (severe) obesity due to excess calories; Translations: [Morbid obesity] Onset: 2 Resolved: 2 Chronic Other nutritional; endocrine; and metabolic disorders (20 sources) Body mass index 40+ - severely obese; Translations: [Morbid obesity] Onset: 3 03-28-2023 Chronic Other nutritional; endocrine; and metabolic disorders (6 sources) Obesity; Translations: [Obesity, unspecified] Chronic Other nutritional; endocrine; and metabolic disorders (4 sources) Body mass index (BMI) 50.0-59.9, adult; Translations: [Body mass index (BMI) 50.0-59.9, adult ([facility])] Onset: 3 Chronic Other nutritional; endocrine; and metabolic disorders (2 sources) Body mass index (BMI) 45.0-49.9, adult; Translations: [Body mass index (BMI) 45.0-49.9, adult ([facility])] Onset: 4 Chronic Other nutritional; endocrine; and metabolic disorders (1 source) Abnormal weight gain Episodic Other skin disorders (9 sources) Cyst of scalp; Translations: [Follicular cyst of the skin and subcutaneous tissue, unspecified] 01-30-2021 Episodic Other upper respiratory disease (12 sources) Chronic rhinitis; Translations: [Chronic rhinitis] Chronic Other upper respiratory disease (1 source) Chronic rhinitis Onset: 2 Resolved: 2 Chronic Other upper respiratory infections (3 sources) Acute sinusitis, unspecified; Translations: [Acute upper respiratory infection, unspecified] Onset: 2 Resolved: 2 Episodic Prolapse of female genital organs (20 sources) Herniation of rectum into vagina; Translations: [Rectocele] Chronic Residual codes; unclassified (6 sources) Idiopathic sleep related non-obstructive alveolar hypoventilation; Translations: [Idiopathic sleep related nonobstructive alveolar hypoventilation] Chronic Residual codes; unclassified (10 sources) Insomnia; Translations: [Insomnia, unspecified] Episodic Residual codes; unclassified (1 source) Edema, unspecified Episodic Residual codes; unclassified (1 source) Insomnia, unspecified Episodic Residual codes; unclassified (1 source) Other specified postprocedural states; Translations: [Other specified postprocedural states] Onset: 4 Episodic Spondylosis; intervertebral disc disorders; other back problems (15 sources) Chronic back pain ; Translations: [Dorsalgia, unspecified] Episodic Substance-related disorders (20 sources) Smoker; Translations: [Nicotine dependence, unspecified, uncomplicated] Onset: 2 Chronic Comment on above: 1 PPD; 1-5 CIGGS DAILY; Unclassified (2 sources) COUGH, UNSPECIFIED; Translations: [COUGH, UNSPECIFIED] Onset: 2 Unclassified (1 source) Pure hypercholesterolemia, unspecified; Translations: [Pure hypercholesterolemia, unspecified] Onset: 3 Unclassified (1 source) Pain in right elbow; Translations: [Pain in right elbow] Onset: 3 Unclassified (1 source) Nutrition Counseling Onset: 4 Unclassified (1 source) Post-op Onset: 4 Unclassified (1 source) MORBID OBESITY, HYPERTENSION Onset: 4 Past or Other Problems Problem Classification Problem Date Documented Date Episodic/Chronic Cardiac dysrhythmias (5 sources) Palpitations; Translations: [Palpitations] Onset: 07-31-2023 07-31-2023 Episodic Diabetes mellitus without complication (20 sources) Impaired glucose tolerance; Translations: [Impaired glucose tolerance (oral)] Onset: 01-18-2022 Resolved: 01-18-2022 Episodic Malaise and fatigue (16 sources) Fatigue; Translations: [Other malaise and fatigue] Onset: 02-13-2023 Episodic Mood disorders (2 sources) Mood disorders Onset: 11-20-2023 11-20-2023 Other lower respiratory disease (14 sources) Dyspnea; Translations: [Shortness of breath] Onset: 02-13-2023 Episodic Other lower respiratory disease (4 sources) Shortness of breath; Translations: [Shortness of breath] Onset: 02-13-2023 Episodic Other lower respiratory disease (1 source) Shortness of breath; Translations: [Shortness of breath] Onset: 12-07-2022 Episodic Other nervous system disorders (1 source) Other acute postprocedural pain; Translations: [Other acute postprocedural pain] Onset: 11-20-2023 Episodic Other non-traumatic joint disorders (1 source) Pain in left hip Onset: 01-18-2022 Resolved: 01-18-2022 Episodic Other screening for suspected conditions (not mental disorders or infectious disease) (18 sources) Encounter for screening mammogram for malignant neoplasm of breast; Translations: [Encounter for screening for malignant neoplasm of colon] Onset: 01-18-2022 Resolved: 01-18-2022 Episodic Residual codes; unclassified (11 sources) Disturbance in sleep behavior; Translations: [Sleep disturbance, unspecified] Onset: 07-31-2023 07-31-2023 Episodic Unclassified (1 source) Lumbosacral pain M54.50 Onset: 01-18-2022 Resolved: 01-18-2022 Unclassified (1 source) COUGH, UNSPECIFIED; Translations: [COUGH, UNSPECIFIED] Onset: 09-24-2022 Unclassified (9 sources) Patient status finding; Translations: [Patient new to provider] Unclassified (2 sources) Onset: 08-01-2023 08-01-2023 Results Test Name Value Interpretation Reference Range Facility CREATININEon 11-21-2023 Creatinine [Mass/Vol] 0.83 mg/dL Normal 0.40-1.[address] [facility] Comment on above: Result Comment: METH OD TRACEABLE TO IDMS STANDARD Performed By: #### C BCA, CMP, FEPR, PINR, 47898-6, 2276-4, 2284-8, 2-9, 07842-1 #### [facility] ([id number]) [address], [address] [place] [address] GFR/1.73 sq M.predicted among non-blacks MDRD (S/P/Bld) [Vol rate/Area] 83 mL/min/{1.73_m2} Normal >59 [facility] Comment on above: Result Comment: Reported eGFR is based on the CKD-EPI 2020 equation that does not use a race coefficient. Performed By: #### C BCA, CMP, FEPR, PINR, 70706-8, 2276-4, 2284-8, 2132-9, 92220-5 #### [facility] ([id number]) [address], [address] [place] [address] HGB AND HCTon 11-21-2023 Hematocrit (Bld) [Volume fraction] 38.1 % Normal 35-47 [facility] Comment on above: Performed By: #### C BCA, CMP, FEPR, PINR, 63995-5, 2276-4, 2284-8, 2132-9, 62517-4 #### [facility] ([id number]) [address], [address] [place] [address] Hemoglobin (Bld) [Mass/Vol] 12.8 g/dL Normal 11.7-15.5 [facility] Comment on above: Performed By: #### C BCA, CMP, FEPR, PINR, 16366-7, 2276-4, 2284-8, 2132-9, 53792-9 #### [facility] ([id number]) [address], [address] [place] [address] PLATELET COUNT AND MPVon Platelet mean volume (Bld) [Entitic vol] 10.8 fL Normal 7-12 [facility] Comment on above: Performed By: #### C BCA, CMP, FEPR, PINR, 10006-8, 2276-4, 2284-8, 2132-9, 32081-6 #### [facility] ([id number]) [address], [address] [place] [id number] Platelets (Bld) [#/Vol] 262 10*3/uL Normal 150-450 [facility] Comment on above: Performed By: #### C BCA, CMP, FEPR, PINR, 70177-2, 2276-4, 2284-8, 2132-9, 11108-1 #### [facility] ([id number]) [address], [address] [place] [address] XR CHEST 2 VWSon 11-13-2023 XR CHEST 2 VWS XR CHEST 2 VWS PA and lateral chest: HISTORY: Cough. 2 views of the chest are obtained. Cardiac and mediastinal contours are within normal limits. Lungs are clear. There is no pleural effusion, pneumothorax, or vascular congestion. Osseous structures appear intact. IMPRESSION: No acute findings. Finalized by Gonzalo Madrid MD on 11/13/2023 11:33 AM Normal [facility] APTTon 11-06-2023 aPTT Coag (PPP) [Time] [address] [facility] CBC AND AUTO DIFFon 11-06-19 ABSOLUTE BASOPHIL 0.0 X10E9/L Normal 0.0-0.2 [facility] Comment on above: Performed By: #### C BCA, CMP, FEPR, PINR, 99530-5, 2276-4, 2284-8, 2132-9, 90885-8 #### [facility] ([id number]) [address], [address] [place] [address] ABSOLUTE NEUTROPHIL 4.9 X10E9/L Normal 1.5-6.6 [facility] Comment on above: Performed By: #### C BCA, CMP, FEPR, PINR, 38903-1, 2276-4, 2284-8, 2-9, 94641-0 #### [facility] ([id number]) [address], [address] [place] [address] Basophils/100 WBC (Bld) 0.5 % Normal [facility] Comment on above: Performed By: #### C BCA, CMP, FEPR, PINR, 88928-7, 2276-4, 2284-8, 2-9, 50681-5 #### [facility] ([id number]) [address], [address] [place] [address] Eosinophils (Bld) [#/Vol] 0.1 10*3/uL Normal 0.0-0.4 [facility] Comment on above: Performed By: #### C BCA, CMP, FEPR, PINR, 35784-6, 2276-4, 2284-8, 2132-9, 11369-4 #### [facility] ([id number]) [address], [address] [place] [address] Eosinophils/100 WBC (Bld) 1.3 % Normal [facility] Comment on above: Performed By: #### C BCA, CMP, FEPR, PINR, 41757-5, 2276-4, 2284-8, 2132-9, 60382-0 #### [facility] ([id number]) [address] [place] [address] Erythrocyte distribution width (RBC) [Ratio] 13.8 % Normal 11.5-15.0 [facility] Comment on above: Performed By: #### C BCA, CMP, FEPR, PINR, 77659-2, 2276-4, 2284-8, 2132-9, 89019-2 #### [facility] ([id number]) [address] [address] Hematocrit (Bld) [Volume fraction] 39.8 % Normal 35-47 [facility] Comment on above: Performed By: #### C BCA, CMP, FEPR, PINR, 55260-4, 2276-4, 2284-8, 2132-9, 06846-6 #### [facility] ([id number]) [address] [place] [address] Hemoglobin (Bld) [Mass/Vol] 13.4 g/dL Normal 11.7-15.5 [facility] Comment on above: Performed By: #### C BCA, CMP, FEPR, PINR, 82963-1, 2276-4, 2284-8, 2132-9, 57896-6 #### [facility] ([id number]) [address] [address] Lymphocytes (Bld) [#/Vol] 2.0 10*3/uL Normal 1.0-3.5 [facility] Comment on above: Performed By: #### C BCA, CMP, FEPR, PINR, 03733-0, 2276-4, 2284-8, 2132-9, 70643-7 #### [facility] ([id number]) [address] [place] [address] Lymphocytes/100 WBC (Bld) 27.6 % Normal [facility] Comment on above: Performed By: #### C BCA, CMP, FEPR, PINR, 95779-5, 2276-4, 2284-8, 2132-9, 72751-1 #### [facility] ([id number]) [address], [address] [place] [address] MCH (RBC) [Entitic mass] 29.0 pg Normal 27-34 [facility] Comment on above: Performed By: #### C BCA, CMP, FEPR, PINR, 12492-0, 2276-4, 2284-8, 213-9, 32393-0 #### [facility] ([id number]) [address], [address] [place] [address] MCHC (RBC) [Mass/Vol] 33.7 g/dL Normal 32-[address] [facility] Comment on above: Performed By: #### C BCA, CMP, FEPR, PINR, 50886-4, 2276-4, 2284-8, 2131-9, 45336-6 #### [facility] ([id number]) [address], [address] [place] [address] MCV (RBC) [Entitic vol] 86 fL Normal 80-100 [facility] Comment on above: Performed By: #### C BCA, CMP, FEPR, PINR, 32766-1, 2276-4, 2284-8, 2131-9, 28132-5 #### [facility] ([id number]) [address], [address] [place] [address] Monocytes (Bld) [#/Vol] 0.4 10*3/uL Normal 0-0.9 [facility] Comment on above: Performed By: #### C BCA, CMP, FEPR, PINR, 53338-8, 2276-4, 2284-8, 2132-9, 68013-1 #### [facility] ([id number]) [address], [address] [place] [address] Monocytes/100 WBC (Bld) 4.8 % Normal [facility] Comment on above: Performed By: #### C BCA, CMP, FEPR, PINR, 35462-1, 2276-4, 2284-8, 2132-9, 90022-1 #### [facility] ([id number]) [address], [address] [place] [address] Neutrophils/100 WBC (Bld) 65.8 % Normal [facility] Comment on above: Performed By: #### C BCA, CMP, FEPR, PINR, 24696-6, 2276-4, 2284-8, 2132-9, 82221-7 #### [facility] ([id number]) [address], [facility] [facility] [address] [place] [address] Platelet mean volume (Bld) [Entitic vol] 10.3 fL Normal 7-12 [facility] Comment on above: Performed By: #### C BCA, CMP, FEPR, PINR, 39032-7, 2276-4, 2284-8, 2132-9, 03974-8 #### [facility] ([id number]) [address], [facility] [address] [place] [address] Platelets (Bld) [#/Vol] 248 10*3/uL Normal 150-450 [facility] Comment on above: Performed By: #### C BCA, CMP, FEPR, PINR, 18340-7, 2276-4, 2284-8, 2132-9, 14805-8 #### [facility] ([id number]) [address], [address] [place] [address] RBC COUNT 4.62 X10E12/L Normal 3.80-5.20 [facility] Comment on above: Performed By: #### C BCA, CMP, FEPR, PINR, 01606-9, 2276-4, 2284-8, 2132-9, 16050-5 #### [facility] ([id number]) [address], [address] [place] [address] WBC (Bld) [#/Vol] 7.4 10*3/uL Normal 4.0-11.0 [facility] Comment on above: Performed By: #### C BCA, CMP, FEPR, PINR, 66678-3, 2276-4, 2284-8, 2132-06, 49412-2 #### [facility] ([id number]) [address], [address] [place] [address] CBC auto differentialon 10-28 Basophils (Bld) [#/Vol] 0.0 10*3/uL [facility] Basophils/100 WBC (Bld) 0.5 % [facility] Eosinophils (Bld) [#/Vol] 0.1 10*3/uL [facility] Eosinophils/100 WBC (Bld) 1.3 % [facility] Erythrocyte distribution width (RBC) [Ratio] 13.8 % 11.5 - 15.0 % [facility] Hematocrit (Bld) [Volume fraction] 39.8 % 35 - 47 % [facility] Hemoglobin (Bld) [Mass/Vol] 13.4 g/dL 11.7 - 15.5 g/dL [facility] Lymphocytes (Bld) [#/Vol] 2.0 10*3/uL [facility] Lymphocytes/100 WBC (Bld) 27.6 % [facility] MCH (RBC) [Entitic mass] 29.0 pg 27 - 34 pg [facility] MCHC (RBC) [Mass/Vol] 33.7 g/dL 32 - 3 6 g/dL [facility] MCV (RBC) [Entitic vol] 86 fL 80 - 100 fL [facility] Monocytes (Bld) [#/Vol] 0.4 10*3/uL [facility] Monocytes/100 WBC (Bld) 4.8 % [facility] Neutrophils (Bld) [#/Vol] 4.9 10*3/uL [facility] Neutrophils/100 WBC (Bld) 65.8 % [facility] Platelet mean volume (Bld) [Entitic vol] 10.3 fL 7 - [address] [facility] Platelets (Bld) [#/Vol] 248 10*3/uL [facility] RBC (Bld) [#/Vol] 4.62 10*6/uL [facility] WBC corrected for nucl RBC Auto (Bld) [#/Vol] 7.4 [facility] COMPREHENSIVE METABOLIC PANE Josue 11-06-2023 Albumin [Mass/Vol] 4.3 g/dL Normal 3.2-5.3 [facility] Comment on above: Performed By: #### C BCA, CMP, FEPR, PINR, 65529-2, 2276-4, 2284-8, 2132-9, 97718-6 #### [facility] ([id number]) [address], [address] [place] [address] ALP [Catalytic activity/Vol] 61 U/L Normal 39-130 [facility] Comment on above: Performed By: #### C BCA, CMP, FEPR, PINR, 10699-7, 2276-4, 2284-8, 2132-9, 45073-1 #### [facility] ([id number]) [address], [address] [place] [address] ALT [Catalytic activity/Vol] 19 U/L Normal 0-31 [facility] Comment on above: Performed By: #### C BCA, CMP, FEPR, PINR, 15632-8, 2276-4, 2284-8, 2132-9, 40783-4 #### [facility] ([id number]) [address], [address] [place] [address] Anion gap [Moles/Vol] 9 mmol/L Normal 5-[address] [facility] Comment on above: Performed By: #### C BCA, CMP, FEPR, PINR, 15623-6, 2276-4, 2284-8, 2132-9, 93408-7 #### [facility] ([id number]) [address], [address] [place] [address] AST [Catalytic activity/Vol] 16 U/L Normal 0-41 [facility] Comment on above: Performed By: #### C BCA, CMP, FEPR, PINR, 62988-2, 2276-4, 2284-8, 213-9, 17563-2 #### [facility] ([id number]) [address], [address] [place] [address] Bilirubin [Mass/Vol] 0.4 mg/dL Normal 0.3-1.2 [facility] Comment on above: Performed By: #### C BCA, CMP, FEPR, PINR, 36476-2, 2276-4, 2284-8, 2131-9, 36977-4 #### [facility] ([id number]) [address], [address] [place] [address] Calcium [Mass/Vol] 9.6 mg/dL Normal 8.5-10.5 [facility] Comment on above: Performed By: #### C BCA, CMP, FEPR, PINR, 47391-9, 2276-4, 2284-8, 2131-9, 18701-8 #### [facility] ([id number]) [address], [address] [place] [address] Chloride [Moles/Vol] 101 mmol/L Normal 98-109 [facility] Comment on above: Performed By: #### C BCA, CMP, FEPR, PINR, 40861-2, 2276-4, 2284-8, 2131-9, 32170-7 #### [facility] ([id number]) [address], [address] [place] [address] CO2 [Moles/Vol] 30 mmol/L Normal 22-32 [facility] Comment on above: Performed By: #### C BCA, CMP, FEPR, PINR, 82628-9, 2276-4, 2284-8, 2132-9, 27630-9 #### [facility] ([id number]) [address] [address] Creatinine [Mass/Vol] 0.71 mg/dL Normal 0.40-1.[address] [facility] Comment on above: Result Comment: METH OD TRACEABLE TO IDMS STANDARD Performed By: #### C BCA, CMP, FEPR, PINR, 05095-0, 2276-4, 2284-8, 2132-9, 37806-8 #### [facility] ([id number]) [address] [address] eGFR (CKD-EPI) NON-RACE DEPENDENT >90 Normal >59 [facility] Comment on above: Result Comment: Reported eGFR is based on the CKD-EPI 2020 equation that does not use a race coefficient. Performed By: #### C BCA, CMP, FEPR, PINR, 30054-1, 2276-4, 2284-8, 2132-9, 34629-0 #### [facility] ([id number]) [address] [address] Glucose [Mass/Vol] 108 mg/dL High 65-99 [facility] Comment on above: Performed By: #### C BCA, CMP, FEPR, PINR, 22672-8, 2276-4, 2284-8, 2132-9, 84466-7 #### [facility] ([id number]) [address], [address] [place] [address] Potassium [Moles/Vol] 4.6 mmol/L Normal 3.5-5.[address] [facility] Comment on above: Performed By: #### C BCA, CMP, FEPR, PINR, 95648-4, 2276-4, 2284-8, 2132-9, 94399-1 #### [facility] ([id number]) [address], [address] [place] [address] Protein [Mass/Vol] 7.5 g/dL Normal 6.0-8.0 [facility] Comment on above: Performed By: #### C BCA, CMP, FEPR, PINR, 88909-1, 2276-4, 2284-8, 2132-9, 80500-7 #### [facility] ([id number]) [address], [address] [place] [address] Sodium [Moles/Vol] 140 mmol/L Normal 134-146 [facility] Comment on above: Performed By: #### C BCA, CMP, FEPR, PINR, 48629-1, 2276-4, 2284-8, 2132-9, 28183-4 #### [facility] ([id number]) [address], [address] [place] [address] Urea nitrogen [Mass/Vol] 22 mg/dL Normal 5-23 [facility] Comment on above: Performed By: #### C BCA, CMP, FEPR, PINR, 39186-2, 2276-4, 2284-8, 2132-9, 80460-0 #### [facility] ([id number]) [address], [address] [place] [address] Cobalamin (Vitamin B12) [Mas s/Vol]on 11-06-[address] [facility] Comprehensive metabolic pane josue 11-06-2023 Albumin [Mass/Vol] 4.3 g/dL 3.2 - 5.3 g/dL [facility] ALP [Catalytic activity/Vol] 61 U/L 39 - 130 U/L [facility] ALT No additional P-5'-P [Catalytic activity/Vol] 19 U/L 0 - 31 U/L [facility] Anion gap [Moles/Vol] 9 mmol/L 5 - 15 mmol/L [facility] AST [Catalytic activity/Vol] 16 U/L 0 - 41 U/L [facility] Bilirubin [Mass/Vol] 0.4 mg/dL 0.3 - 1 .2 mg/dL [facility] Calcium [Mass/Vol] 9.6 mg/dL 8.5 - 10. 5 mg/dL [facility] Chloride [Moles/Vol] 101 mmol/L 98 - 10 9 mmol/L [facility] CO2 [Moles/Vol] 30 mmol/L 22 - 32 mmol/L [facility] Creatinine [Mass/Vol] 0.71 mg/dL 0.40 - 1.00 mg/dL [facility] Comment on above: METHOD TRACEABLE TO [facility] STANDARD eGFR (CKD-EPI)non-race dependent - PINF [facility] Comment on above: Reported eGFR is based on the CKD-EPI 2020 equation that does not use a race coefficient. Glucose [Mass/Vol] 108 mg/dL High 65 - 99 mg/dL [facility] Interpretation and review of laboratory results Abnormal [facility] Potassium [Moles/Vol] 4.6 mmol/L 3.5 - 5.0 mmol/L [facility] Protein [Mass/Vol] 7.5 g/dL 6.0 - 8.0 g/dL [facility] Sodium [Moles/Vol] 140 mmol/L 134 - 146 mmol/L [facility] Urea nitrogen [Mass/Vol] 22 mg/dL 5 - 23 mg/dL [facility] ECG 12 leadon 11-06-[address] [facility] FERRITINon 11-06-2023 Ferritin [Mass/Vol] 189 ng/mL Normal 11-307 [facility] Comment on above: Performed By: #### C BCA, CMP, FEPR, PINR, 41539-1, 2276-4, 2284-8, 2132-9, 62832-6 #### [facility] ([id number]) [address], [address] [place] [address] Ferritinon 11-06-2023 Ferritin [Mass/Vol] 189 ng/mL 11 - 307 ng/mL [facility] Folateon 11-06-2023 Folate [Mass/Vol] ng/mL 5.8 - PINF ng/mL [facility] Comment on above: NEW REFERENCE RANGE Folate [Mass/Vol]on 11-06-[address] [facility] FOLIC ACID >25.0 Normal >5.8 [facility] Comment on above: Result Comment: NEW REFERENCE RANGE Performed By: #### C BCA, CMP, FEPR, PINR, 97981-5, 2276-4, 2284-8, 2132-9, 68926-8 #### [facility] ([id number]) [address], [address] [place] [address] IRON PROFILEon 11-06-2023 Iron [Mass/Vol] 100 ug/dL Normal 50-170 [facility] Comment on above: Performed By: #### C BCA, CMP, FEPR, PINR, 57141-6, 2276-4, 2284-8, 2132-9, 72835-7 #### [facility] ([id number]) [address], [address] [place] [address] IRON BINDING 305 ug/dL Normal 250-425 [facility] Comment on above: Performed By: #### C BCA, CMP, FEPR, PINR, 86175-2, 2276-4, 2284-8, 2132-9, 77029-0 #### [facility] ([id number]) [address], [address] [place] [address] IRON SATURATION 33 % SATURATION Normal 15-50 [facility] Comment on above: Performed By: #### C BCA, CMP, FEPR, PINR, 49615-7, 2276-4, 2284-8, 2132-9, 35953-9 #### [facility] ([id number]) [address], [address] [place] [address] Iron and TIBCon 11-06-2023 Iron [Mass/Vol] 100 ug/dL 50 - 170 ug/dL [facility] Iron binding capacity [Mass/Vol] 305 ug/dL 250 - 425 ug/dL [facility] Iron saturation [Mass fraction] [address] [facility] No Panel Informationon 11-06 [facility] PROTIME AND INRon 11-06-2023 INR Coag (PPP) [Relative time] 1.1 {INR} Normal 0.8-1.1 [facility] Comment on above: Performed By: #### C BCA, CMP, FEPR, PINR, 46770-4, 2276-4, 2284-8, 2132-9, 20147-7 #### [facility] ([id number]) [address], [address] [place] [address] PT Coag (PPP) [Time] 12.8 s Normal 9.8-13.2 [facility] Comment on above: Performed By: #### C BCA, CMP, FEPR, PINR, 78852-6, 2276-4, 2284-8, 2132-9, 86092-3 #### [facility] ([id number]) [address], [address] [place] [address] Protime & INRon 11-06-2023 INR Coag (PPP) [Relative time] 1.1 {INR} [facility] PT Coag (PPP) [Time] 12.8 s [facility] Thiamine (Bld) [Mass/Vol]on 11-06-2023 THIAMIN VITAMIN B1 See Below Normal [facility] Comment on above: Result Comment: NOTE TEST RESULT FLAG UNIT REF.RANGE ------ Vitamin B1 (TDP), Whole Blood 203.0 nmol/L 84.3-213.3 This assay measures the concentration of thiamine diphosphate (TDP), the primary active form of vitamin B1. Approximately 90 percent of vitamin B1 present in whole blood is TDP. Thiamine and thiamine monophosphate, which comprise the remaining 10 percent, are not measured. This test was developed and its performance characteristics determined by [facility]'s [facility] Pathology [facility] Laboratory [facility] [place] ([facility]). It has not been cleared or approved by the FDA. [facility] is regulated under CLIA as qualified to perform high-complexity testing. This test is used for clinical purposes. It should not be regarded as investigational or for research. Test Performed By: [place] [address] Medical Office Manager: Alfredo Chu III, M.D. CLIA #[id number] Performed By: #### C BCA, CMP, FEPR, PINR, 43078-1, 2276-4, 2284-8, 2131-9, 55259-6 #### [facility] ([id number]) [address], [address] [place] [address] VITAMIN B12on 11-06-2023 Cobalamin (Vitamin B12) [Mass/Vol] 737 pg/mL Normal 180-914 [facility] Comment on above: Performed By: #### C BCA, CMP, FEPR, PINR, 78708-3, 2276-4, 2284-8, 9, 42949-7 #### [facility] ([id number]) [address], [address] [place] [address] Vitamin B12on 11-06-2023 Cobalamin (Vitamin B12) [Mass/Vol] 737 pg/mL 180 - 914 pg/mL [facility] Vitamin D 25 hydroxyon 11-06 Vitamin D+Metabolites [Mass/Vol] 26.4 ng/mL Low 30 - 100 ng/mL [facility] Comment on above: Vitamin D status 25 [place] Vitamin D Deficiency <20 ng/mL Insufficiency 20-29 ng/mL Sufficiency 30-100 ng/mL Toxicity >100 ng/mL NOTE: A pediatric reference range has not been established by the machine plate stacker of this kit. The [place] [employer] recommends a Vitamin D level of = or >20ng/mL in infants and children. Vitamin D+Metabolites [Mass/ Vol]on 11-06-2023 Interpretation and review of laboratory results Abnormal [facility] VITAMIN D 25 HYD TOT 26.4 ng/mL Low 30-100 [facility] Comment on above: Result Comment: Vitamin D status 25 [place] Vitamin D Deficiency <20 ng/mL Insufficiency 20-29 ng/mL Sufficiency 30-100 ng/mL Toxicity >100 ng/mL NOTE: A pediatric reference range has not been established by the machine plate stacker of this kit. The [place] [employer] recommends a Vitamin D level of = or >20ng/mL in infants and children. Performed By: #### C BCA, CMP, FEPR, PINR, 33307-2, 2276-4, 2284-8, 2131-9, 14938-0 #### [facility] ([id number]) [address], [facility] [address] [place] [address] aPTT Coag (PPP) [Time]on aPTT Coag (Bld) [Time] 35 s Normal 26-37 [facility] Comment on above: Performed By: #### C BCA, CMP, FEPR, PINR, 96262-7, 2276-4, 2284-8, 2131-9, 73848-4 #### [facility] ([id number]) [address], [address] [place] [address] Basic Metabolic Panelon 06-29 Anion gap [Moles/Vol] 11.9 mmol/L Normal 6.0-15.0 [facility] Comment on above: Order Comment: PT IS FASTING Performed By: #### A ST, BNP, ALT, LIPID #### [facility] [address] [place] [address] [facility] Calcium [Mass/Vol] 9.8 mg/dL Normal 8.6-10.3 [facility] Comment on above: Order Comment: PT IS FASTING Result Comment: PERF ORMED BY: [place] [address] PATHOLOGIST MANAGER MAIL SILVINA MONTESINOS M.D. Performed By: #### A ST, BNP, ALT, LIPID #### [facility] [address] Chloride [Moles/Vol] 105 mmol/L Normal 98-107 [facility] Comment on above: Order Comment: PT IS FASTING Performed By: #### A ST, BNP, ALT, LIPID #### [facility] [address] CO2 [Moles/Vol] 28.6 mmol/L Normal 21.0-31.0 [facility] Comment on above: Order Comment: PT IS FASTING Performed By: #### A ST, BNP, ALT, LIPID #### [address] Creatinine [Mass/Vol] 0.76 mg/dL Normal 0.60-1.20 [facility] Comment on above: Order Comment: PT IS FASTING Performed By: #### A ST, BNP, ALT, LIPID #### [place] [address] [place] GFR/1.73 sq M.predicted MDRD (S/P/Bld) [Vol rate/Area] mL/min/{1.73_m2} Normal [facility] Comment on above: Order Comment: PT IS FASTING Performed By: #### A ST, BNP, ALT, LIPID #### [place] [address] [place] Glucose [Mass/Vol] 120 mg/dL High 70-100 [facility] Comment on above: Order Comment: PT IS FASTING Result Comment: [place] Glucose Reference Range is dependent on time and content of last meal. Glucose of more than 200 mg/dL in a nonstressed, ambulatory subject supports the diagnosis of Diabetes Mellitus. ADA recommended reference range Performed By: #### A ST, BNP, ALT, LIPID #### [address] Potassium [Moles/Vol] 4.5 mmol/L Normal 3.5-5.1 [facility] Comment on above: Order Comment: PT IS FASTING Performed By: #### A ST, BNP, ALT, LIPID #### [facility] [address] [place] [id number] [place] Sodium [Moles/Vol] 141 mmol/L Normal 136-145 [facility] Comment on above: Order Comment: PT IS FASTING Performed By: #### A ST, BNP, ALT, LIPID #### [facility] [address] [place] [id number] [place] Urea nitrogen [Mass/Vol] 19 mg/dL Normal 7-25 [facility] Comment on above: Order Comment: PT IS FASTING Performed By: #### A ST, BNP, ALT, LIPID #### [facility] [address] Calcium [Mass/volume] in Ser um or PlasmaOrdered By: Terese Braxton on 07-25-2023 Calcium [Mass/Vol] 9.8 mg/dL 8.6-10.3 [facility] Carbon dioxide, total [Moles /volume] in Serum or PlasmaOrdered By: Terese Braxton on 07-25-2023 CO2 [Moles/Vol] 28.6 mmol/L 21.0-31.0 [facility] Chloride [Moles/volume] in S anh or PlasmaOrdered By: Terese Braxton on 07-25-2023 Chloride [Moles/Vol] 105 mmol/L 98-107 [facility] Creatinine [Mass/volume] in Serum or PlasmaOrdered By: Terese Braxton on 07-25-2023 Creatinine [Mass/Vol] 0.76 mg/dL 0.60-1.20 [facility] Glucose [Mass/volume] in Ser um or PlasmaOrdered By: Terese Braxton on 07-25-2023 Glucose [Mass/Vol] 120 mg/dL 70-100 [facility] Comment on above: ADA recommended refe rence rangeRandom Glucose Reference Range is dependent on time and content of last meal. Glucose of more than 200 mg/dL in a nonstressed, ambulatory subject supports the diagnosis of Diabetes Mellitus. No Panel InformationOrdered By: Terese Braxton on 07-25-2023 Estimated GFR (CKD-EPI) > 60.0 mL/Min [facility] Creatinine Clearance (Chem N/A [facility] No Panel on 07-25 > 60.0 Normal [facility] [address] DO Work Phone: 11.9\S\11.9 Normal 6.0-15.0 [facility] [address] DO Work Phone: 9.8\S\9.8 Normal 8.6-10.3 [facility] [address] DO Work Phone: Comment on above: PERFORMED BY:[place] [address] [address] [place], [place] [id number] MEDICAL DIRECTORSILVINA MONTESINOS M.D. 28.6\S\28.6 Normal 21.0-31.0 [facility] [address] DO Work Phone: 105\S\105 Normal 98-107 [facility] [address] DO Work Phone: 4.5\S\4.5 Normal 3.5-5.1 [facility] 250 DO Work Phone: 141\S\141 Normal 136-145 [facility] 250 DO Work Phone: 0.76\S\0.76 Normal 0.60-1.20 [facility] 250 DO Work Phone: 19\S\19 Normal 7-25 [facility] 250 DO Work Phone: 120\S\120 above high threshold 70-100 [facility] [address] DO Work Phone: Comment on above: Random Glucose Refer ence Range is dependent on time and content of last meal. Glucose of more than 200 mg/dL in a nonstressed, ambulatory subject supports the diagnosis of Diabetes Mellitus. ADA recommended reference range Potassium [Moles/volume] in Serum or PlasmaOrdered By: Terese Braxton on 07-25-2023 Potassium [Moles/Vol] 4.5 mmol/L 3.5-5.1 [facility] Serum or plasma anion gap de terminationOrdered By: Terese Braxton on 07-25-2023 Anion gap [Moles/Vol] 11.9 mmol/L 6.0-15.0 [facility] Sodium [Moles/volume] in Ser um or PlasmaOrdered By: Terese Braxton on 07-25-2023 Sodium [Moles/Vol] 141 mmol/L 136-145 [facility] Urea nitrogen [Mass/volume] in Serum or PlasmaOrdered By: Terese Braxton on 07-25-2023 Urea nitrogen [Mass/Vol] 19 mg/dL 05-21 [facility] Cardiovasc Arrhythmia Result son 07-23-2023 Cardiovas Arrhythmia Results Reason For Visit Reason for Visit: Holter Monitor: PAIGE is here for the application of a 48 hour Holter monitor. Ordering Physician: Dr. Terese Braxton MD Diagnosis: palps NO equipment agreement signed. PAIGE understands monitor is to be returned on: 07/25/2023 Monitor number [id number] applied. Holter monitor printed and placed on Dr. Terese Braxton MD desk to dictate. Procedure Holter monitor returned with diary and downloaded. There were isolated ventricular premature beats, total of 566 beats, comprised 0.2% of the total QRS complexes. There were isolated supraventricular premature beats, total of 83 beats were noted. Longest R to R interval was 1.3 seconds and occurred at 7:09 AM. There were no bradycardia dysrhythmias. Patient was having cold symptoms during the day Holter, therefore it was difficult to assess whether symptoms were related to an arrhythmia or not. She complained of chest discomfort while walking at 4:30 PM and 10:18 PM on day 2. The symptoms corresponded to sinus rhythm and sinus tachycardia respectively. Summary: 1. Isolated, prematurely [place] formed ventricular premature beats were noted throughout, total of 566 beats during 48 hours. 2. No atrial fibrillation or malignant dysrhythmia 3. Symptoms of chest discomfort corresponded to sinus rhythm and sinus tachycardia. Diagnosis/Problems Assessed Palpitations (785.1) (R00.2) Signatures Electronically signed by : Terese Braxton MD; Aug 01 2023 3:41PM EST (Author) Normal Checkr Office Visit (Cardiology)on 07-15-2023 Follow-up visit Diagnoses/Problems Assessed Hypertensive heart disease without CHF (congestive heart failure) (402.90) (I11.9) Mixed hyperlipidemia (272.2) (E78.2) Clotting disorder (286.9) (D68.9) Disturbance, sleep (780.50) (G47.9) Shortness of breath (786.05) (R06.02) Palpitations (785.1) (R00.2) Morbid obesity with BMI of 50.0-59.9, adult (278.01,V85.43) (E66.01,Z68.43) Current every day smoker (305.1) (F17.200) 1-5 CIGGS DAILY Medication course changed (V58.69) (Z79.899) Orders Health Maintenance, Mixed hyperlipidemia, Morbid obesity with BMI of 50.0-59.9, adult Basic Metabolic Panel; Status:Active; Requested for:57Nsn7890; Hypertension Start: Lisinopril 40 MG Oral Tablet; TAKE 1 TABLET DAILY Morbid obesity with BMI of 50.0-59.9, adult Healthy Weight Tips; Status:Complete; Done: 69Byy4396 Some eating tips that can help you lose weight.; Status:Complete; Done: 28Lpb0954 Palpitations Start: Magnesium Oxide 400 MG Oral Tablet; TAKE 1 TABLET TWICE DAILY IO EKG Electrocardiogram- 12 Lead; Status:Complete; Done: 87Tan2056 IO Holter Monitor up to 48 Hrs; Status:Active - Perform Order; Requested for:81Wpc5686; SocHx: Current every day smoker You need to quit smoking.; Status:Complete; Done: 26Xuj4736 Tobacco Use Screening; Status:Complete; Done: 00Qlg5272 Patient Instructions Please bring all medicines, vitamins, and herbal supplements with you when you come to the office. Prescriptions will not be filled unless you are compliant with your follow up appointments or have a follow up appointment scheduled as per instruction of your physician. Refills should be requested at the time of your visit. 48 hr holter magnesium oxide 400 mg twice daily. increase lisinopril 40 once daily. Follow-up after testing completed labs 7-10 days Chief Complaint PAIGE MCCARTY is being seen for a 6 month follow-up of. History of Present Illness Patient was most recently seen in December 2022. Past medical history is as noted below. Has cut back on cigarettes, previously greater than 1 pack/day, currently 5 cigarettes daily, vaping occasionally 0% nicotine. Shortness of breath comes and goes. This past weekend had palpitations, felt like the heart was beating out of her chest, sometimes these episodes occur while she is lying down, sometimes when she is up and about. Episodes last several minutes and are sometimes associated with tightness in the chest and jaw. Scheduled for bariatric surgery next month in [place], going through different aspects of work-up. Has a resting tremor, and has been anxious, so primary regarding anxiety issues. Had to cut back rosuvastatin because of pain in every joint according to her. Blood pressure is elevated recheck blood pressure also elevated. HISTORY SO FAR : 1. Progressively worsening exertional shortness of breath functional class III with bouts of orthopnea, the orthopnea is mostly due to coughing spells. 2. I suspect that her shortness of breath is related to her morbid obesity and underlying lung disease with ongoing nicotine addiction. 3. Given her risk factors and postmenopausal status, clearly cannot exclude anginal equivalent as etiology of shortness of breath but it is less likely 4. Morbid obesity, she has tried to quit smoking but says that she gains about 20 pounds every time she tries 5. Current functional capacity seems to be less than 4 METS 6. Evidence of peripheral vascular disease on examination in the left foot, decreased pulses without evidence of rest ischemia or clear-cut claudication or ulcers 7. Incomplete right bundle branch block 8. Chronic fatigue 9. 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 Status postcholecystectomy and hysterectomy 12. No prior history of DVT or pulmonary embolism 13. Left upper quadrant tenderness to deep palpation, significance unclear, defer to primary 14. Hypertension-essential, at target 15. Hyperlipidemia-I was able to subsequently review lab data from Dr. Bright's office, in September 2022 total cholesterol 245 HDL 60 triglycerides 200 LDL 145 16. Hyperglycemia,? Diabetes, hemoglobin A1c 10/17/2022 6.3 17. Pulmonary function testing November 2022-there is a suggestion of restriction on spirometry but this is not confirmed on measurement of static lung volumes, with a normal total lung capacity which is also without evidence of significant air trapping diffusion capacity is low normal and improves further after adjustment for alveolar volume, which could suggest some component of ventilation/perfusion mismatch. 18. Echocardiogram December 2022-LVEF 60% impaired relaxation pattern of LV diastolic filling left atrial diameter 2.9 cm peak and mean gradients across aortic valve 11 and 5 respectively trace tricuspid regurgitation no pericardial effusion normal-sized aort (more content not included)... Normal Checkr Tobacco Screening.on 023 Tobacco use status CP a) Yes -[facility] 250 DO Work Phone: Tobacco Screening. Yes [facility] 250 DO Work Phone: XR elbow RT min 3V*on 2022 XR elbow RT min 3V* [facility] [place] [address] [place] [address] XRay Report Signed Patient: Paige Mccarty MR#: [id number] : 1965 Acct:[id number] Age/Sex: 58 / F ADM Date: 04/23/23 Loc: [facility] Room: Type: [facility] Attending Dr: Awais Bright DO Copies to: Awais Bright DO Ordering Provider: Awais Bright DO Date of Service: 04/23/23 XR/XR elbow RT min 3V*: Fall with injury 4 views RIGHTelbow plain film COMPARISON :None HISTORY: Fell 2 months ago. Medial RIGHT elbow pain ACUTE FINDINGS: None DEGENERATIVE CHANGE: Unremarkable SOFT TISSUE FINDINGS: 3 mm soft tissue radiodensity near the olecranon present. This likely incidental. JOINT EFFUSION: None POSTOP CHANGES: None BONE MINERALIZATION: Adequate XR/XR elbow RT min 3V* IMPRESSION: No acute fracture. Impression dictated by: Bishnu Correia M.D.04/23/2023 1:33 PM Dictation Location: [place] [address] Transcribed By: [facility] 04/23/23 1333 Dictated By: Bishnu Correia DO 04/23/23 1325 Signed By: 04/23/23 1333 Normal [facility] XR elbow RT min 3V* [facility] [employer] Other XR elbow RT min 3V* [facility] [employer] Other XR elbow RT min 3V* [address] [facility] [employer] Other XR elbow RT min 3V* [place] [address] [employer] Other XR elbow RT min 3V* XRay Report [employer] Other XR elbow RT min 3V* Signed [employer] Other XR elbow RT min 3V* Patient: Paige Mccarty MR#: [id number] [employer] Other XR elbow RT min 3V* : 1965 Acct:[id number] [employer] Other XR elbow RT min 3V* Age/Sex: 58 / F ADM Date: 04/23/23 [employer] Other XR elbow RT min 3V* [facility] Room: Typ e: [facility] [employer] Other XR elbow RT min 3V* Attending Dr: Awais Bright DO [employer] Other XR elbow RT min 3V* Copies to: Awais Bright DO [employer] Other XR elbow RT min 3V* Ordering Provider: Deshawn Bright DO [employer] Other XR elbow RT min 3V* Date of Service: 04/23/23 [employer] Other XR elbow RT min 3V* XR/XR elbow RT min 3V*: Fall with injury [employer] Other XR elbow RT min 3V* 4 views RIGHTelbow p silvia film [employer] Other XR elbow RT min 3V* COMPARISON :None [employer] Other XR elbow RT min 3V* HISTORY: Fell 2 elieser hs ago. Medial RIGHT elbow pain [employer] Other XR elbow RT min 3V* ACUTE FINDINGS: None [employer] Other XR elbow RT min 3V* DEGENERATIVE CHANGE: Unremarkable [employer] Other XR elbow RT min 3V* SOFT TISSUE FINDINGS : 3 mm soft tissue radiodensity near the olecranon present. This likely [employer] Other XR elbow RT min 3V* incidental. [place] [employer] Other XR elbow RT min 3V* JOINT EFFUSION: None [employer] Other XR elbow RT min 3V* POSTOP CHANGES: None [employer] Other XR elbow RT min 3V* BONE MINERALIZATION: Adequate [employer] Other XR elbow RT min 3V* X R/XR elbow RT min 3V* [employer] Other XR elbow RT min 3V* IMPRESSION: No acute fracture. [employer] Other XR elbow RT min 3V* Impression dictated by: Bishnu Correia M.D.04/23/2023 1:33 PM [employer] Other XR elbow RT min 3V* Dictation Location: [place] [address] [employer] Other XR elbow RT min 3V* Transcribed By: JOE 04/23/23 1333 [employer] Other XR elbow RT min 3V* Dictated By: Bishnu Correia DO 04/23/23 1325 [employer] Other XR elbow RT min 3V* Signed By: [employer] Other XR elbow RT min 3V* 04/23/23 1333 [facility] P's Other A1C with Estimated Average G valerio 04-15-2023 Glucose [Mass/Vol] 134 mg/dL Normal [facility] Comment on above: Order Comment: OK TO DO NOW PER GRETA GAUTAM Reason for Exam Impaired glucose tolerance Result Comment: PERF ORMED BY: [place] [address] PATHOLOGIST MANAGER MAIL SILVINA MONTESINOS M.D. Performed By: #### A 1C [facility] eA #### [facility] [address] HbA1c (Bld) [Mass fraction] 6.3 % High 4.3-5.6 [facility] Comment on above: Order Comment: OK TO DO NOW PER GRETA GAUTAM Reason for Exam Impaired glucose tolerance Result Comment: Incr eased risk for diabetes: 5.7 - 6.4 diabetes: >6.4 glycemic control for adults with diabetes: <7.0 Performed By: #### A 1C [facility] eA #### [facility] [address] Alanine aminotransferase [En zymatic activity/volume] in Serum or PlasmaOrdered By: Awais Bright on 04-15-2023 ALT [Catalytic activity/Vol] 16 U/L 7-52 [facility] Albumin [Mass/volume] in Ser um or Plasma by Bromocresol green (BCG) dye binding methoOrdered By: Awais Bright on 04-15-2023 Albumin BCG dye [Mass/Vol] 4.1 g/dL 3.5-5.7 [facility] Alkaline phosphatase [Enzyma tic activity/volume] in Serum or PlasmaOrdered By: Awais Bright on 04-15-2023 ALP [Catalytic activity/Vol] 59 U/L 34-104 [facility] Aspartate aminotransferase [ Enzymatic activity/volume] in Serum or PlasmaOrdered By: Awais Bright on 04-15-2023 AST [Catalytic activity/Vol] 14 U/L 13-39 [facility] Basic Metabolic Panelon 03-28 Anion gap [Moles/Vol] 12.8 mmol/L Normal 6.0-15.0 [facility] Comment on above: Order Comment: PT FA STED 12 HOURS OK TO DO NOW PER GRETA RN Reason for Exam Mixed hyperlipidemia Performed By: #### B MP, LIPID #### [facility] [address] Calcium [Mass/Vol] 9.6 mg/dL Normal 8.6-10.3 [facility] Comment on above: Order Comment: PT FA STED 12 HOURS OK TO DO NOW PER GRETA RN Reason for Exam Mixed hyperlipidemia Performed By: #### B MP, LIPID #### [facility] [address] Chloride [Moles/Vol] 104 mmol/L Normal 98-107 [facility] Comment on above: Order Comment: PT FA STED 12 HOURS OK TO DO NOW PER GRETA RN Reason for Exam Mixed hyperlipidemia Performed By: #### B MP, LIPID #### [facility] [address] [place] [address] [place] CO2 [Moles/Vol] 26.3 mmol/L Normal 21.0-31.0 [facility] Comment on above: Order Comment: PT FA STED 12 HOURS OK TO DO NOW PER GRETA RN Reason for Exam Mixed hyperlipidemia Performed By: #### B MP, LIPID #### [facility] [address] [place] [address] [place] Creatinine [Mass/Vol] 0.75 mg/dL Normal 0.60-1.20 [facility] Comment on above: Order Comment: PT FA STED 12 HOURS OK TO DO NOW PER GRETA RN Reason for Exam Mixed hyperlipidemia Performed By: #### B MP, LIPID #### [facility] [address] [place] [address] [place] GFR/1.73 sq M.predicted MDRD (S/P/Bld) [Vol rate/Area] mL/min/{1.73_m2} [facility] Comment on above: Order Comment: PT FA STED 12 HOURS OK TO DO NOW PER GRETA RN Reason for Exam Mixed hyperlipidemia Performed By: #### B MP, LIPID #### [facility] [address] [place] [address] [place] Glucose [Mass/Vol] 110 mg/dL High 70-100 [facility] Comment on above: Order Comment: PT FA STED 12 HOURS OK TO DO NOW PER GRETA RN Reason for Exam Mixed hyperlipidemia Result Comment: [place] Glucose Reference Range is dependent on time and content of last meal. Glucose of more than 200 mg/dL in a nonstressed, ambulatory subject supports the diagnosis of Diabetes Mellitus. ADA recommended reference range Performed By: #### B MP, LIPID #### [facility] [address] Potassium [Moles/Vol] 4.1 mmol/L Normal 3.5-5.1 [facility] Comment on above: Order Comment: PT FA STED 12 HOURS OK TO DO NOW PER GRETA RN Reason for Exam Mixed hyperlipidemia Performed By: #### B MP, LIPID #### [facility] [address] Sodium [Moles/Vol] 139 mmol/L Normal 136-145 [facility] Comment on above: Order Comment: PT FA STED 12 HOURS OK TO DO NOW PER GRETA RN Reason for Exam Mixed hyperlipidemia Performed By: #### B MP, LIPID #### [facility] [address] Urea nitrogen [Mass/Vol] 27 mg/dL High 7-25 [facility] Comment on above: Order Comment: PT FA STED 12 HOURS OK TO DO NOW PER GRETA RN Reason for Exam Mixed hyperlipidemia Performed By: #### B MP, LIPID #### [facility] [address] [place] [address] [place] Basophils Auto (Bld) [#/Vol] Ordered By: Awais Bright on 04-15-2023 Basophils (Bld) [#/Vol] 0.0 10*3/uL 0.0-0.2 [facility] Basophils/100 WBC Auto (Bld) Ordered By: Awais Bright on 04-15-2023 Basophils/100 WBC (Bld) 0.6 % . [facility] Bilirubin.direct [Mass/volum e] in Serum or PlasmaOrdered By: Awais Bright on 04-15-2023 Bilirubin.direct [Mass/Vol] 0.10 mg/dL 0.03-0.18 [facility] Bilirubin.total [Mass/volume ] in Serum or PlasmaOrdered By: Awais Bright on 04-15-2023 Bilirubin [Mass/Vol] 0.5 mg/dL 0.3-1.0 [facility] Blood thiamine measurement ( moles/volume)Ordered By: López Kidd on 04-15-2023 Thiamine (Bld) [Moles/Vol] 153.0 nmol/L 66.5-200.0 [facility] Comment on above: This test was devcaseyo ped and its performance characteristicsdetermined by [employer]. It has not been cleared orapproved by the Food and Drug Administration.Performed at: [facility] [employer] [id number] Director: Argenis Reynolds MD, Phone: [phone] Calcium [Mass/volume] in Ser um or PlasmaOrdered By: Awais Bright on 04-15-2023 Calcium [Mass/Vol] 9.6 mg/dL 8.6-10.3 [facility] Carbon dioxide, total [Moles /volume] in Serum or PlasmaOrdered By: Awais Bright on 04-15-2023 CO2 [Moles/Vol] 26.3 mmol/L 21.0-31.0 [facility] Chloride [Moles/volume] in S anh or PlasmaOrdered By: Awais Bright on 04-15-2023 Chloride [Moles/Vol] 104 mmol/L 98-107 [facility] Cholesterol [Mass/volume] in Serum or PlasmaOrdered By: Awais Bright on 04-15-2023 Cholesterol [Mass/Vol] 190 mg/dL 140-200 [facility] Comment on above: Chol less than 200 m g/dl low riskChol 201-239 mg/dl borderline riskChol 240 mg/dl and greater high risk Cholesterol in LDL Calc [Mas s/Vol]Ordered By: Awais Bright on 04-15-2023 Cholesterol in LDL [Mass/Vol] 109 mg/dL 0-100 [facility] Comment on above: LDL ATP III CLASSIFI CATIONLDL less than 100 mg/dL OptimalLDL 100-129 mg/dL Near or above optimalLDL 130-159 mg/dL Borderline highLDL 160-189 mg/dL HighLDL greater than 189 mg/dL Very high Cholesterol in VLDL Calc [Ma ss/Vol]Ordered By: Awais Bright on 04-15-2023 Cholesterol in VLDL [Mass/Vol] 32 mg/dL [facility] Complete Blood Count Auto Di ffon 04-15-2023 Basophils (Bld) [#/Vol] 0.0 10*3/uL Normal 0.0-0.2 [facility] Comment on above: Order Comment: OK TO DO NOW PER GRETA RN Reason for Exam Mixed hyperlipidemia Result Comment: PERF ORMED BY: [place] [address] PATHOLOGIST MANAGER MAIL SILVINA MONTESINOS M.D. Performed By: #### C BC #### [facility] [address] [place] [address] [place] Basophils/100 WBC (Bld) 0.6 % Normal . [facility] Comment on above: Order Comment: OK TO DO NOW PER GRETA RN Reason for Exam Mixed hyperlipidemia Performed By: #### C BC #### [facility] [address] [place] [address] [place] Eosinophils (Bld) [#/Vol] 0.1 10*3/uL Normal 0.0-0.45 [facility] Comment on above: Order Comment: OK TO DO NOW PER GRETA RN Reason for Exam Mixed hyperlipidemia Performed By: #### C BC #### [facility] [address] [place] [address] [place] Eosinophils/100 WBC (Bld) 1.2 % Normal . [facility] Comment on above: Order Comment: OK TO DO NOW PER GRETA RN Reason for Exam Mixed hyperlipidemia Performed By: #### C BC #### [facility] [address] [place] [address] Erythrocyte distribution width (RBC) [Ratio] 13.8 % Normal 11.9-15.3 [facility] Comment on above: Order Comment: OK TO DO NOW PER GRETA RN Reason for Exam Mixed hyperlipidemia Performed By: #### C BC #### [facility] [address] Hematocrit (Bld) [Volume fraction] 40.8 % Normal 34.0-46.4 [facility] Comment on above: Order Comment: OK TO DO NOW PER GRETA RN Reason for Exam Mixed hyperlipidemia Performed By: #### C BC #### [facility] [address] Hemoglobin (Bld) [Mass/Vol] 13.6 g/dL Normal 11.8-15.4 [facility] Comment on above: Order Comment: OK TO DO NOW PER GRETA RN Reason for Exam Mixed hyperlipidemia Performed By: #### C BC #### [address] Lymphocytes (Bld) [#/Vol] 1.9 10*3/uL Normal 1.00-4.8 [facility] Comment on above: Order Comment: OK TO DO NOW PER GRETA RN Reason for Exam Mixed hyperlipidemia Performed By: #### C BC #### [address] Lymphocytes/100 WBC (Bld) 25.1 % Normal . [facility] Comment on above: Order Comment: OK TO DO NOW PER GRETA RN Reason for Exam Mixed hyperlipidemia Performed By: #### C BC #### [address] MCH (RBC) [Entitic mass] 28.5 pg Normal 24.7-34.3 [facility] Comment on above: Order Comment: OK TO DO NOW PER GRETA RN Reason for Exam Mixed hyperlipidemia Performed By: #### C BC #### [address] MCV (RBC) [Entitic vol] 85.7 fL Normal 80-100 [facility] Comment on above: Order Comment: OK TO DO NOW PER GRETA RN Reason for Exam Mixed hyperlipidemia Performed By: #### C BC #### [address] Mean Corpuscular HGB Conc 33.2 g/dL Normal 32.0-35.0 [facility] Comment on above: Order Comment: OK TO DO NOW PER GRETA RN Reason for Exam Mixed hyperlipidemia Performed By: #### C BC #### [facility] [address] Monocytes (Bld) [#/Vol] 0.4 10*3/uL Normal 0.0-0.8 [facility] Comment on above: Order Comment: OK TO DO NOW PER GRETA RN Reason for Exam Mixed hyperlipidemia Performed By: #### C BC #### [facility] [address] Monocytes/100 WBC (Bld) 4.9 % Normal . [facility] Comment on above: Order Comment: OK TO DO NOW PER GRETA RN Reason for Exam Mixed hyperlipidemia Performed By: #### C BC #### [facility] [address] [place] [address] Neutrophils (Bld) [#/Vol] 5.1 10*3/uL Normal 1.8-7.7 [facility] Comment on above: Order Comment: OK TO DO NOW PER GRETA RN Reason for Exam Mixed hyperlipidemia Performed By: #### C BC #### [facility] [address] [place] [address] Neutrophils/100 WBC (Bld) 68.2 % Normal . [facility] Comment on above: Order Comment: OK TO DO NOW PER GRETA RN Reason for Exam Mixed hyperlipidemia Performed By: #### C BC #### [facility] [address] [place] [address] [place] NRBC% 0.1 /100{WBC} Normal 0-0.5 [facility] Comment on above: Order Comment: OK TO DO NOW PER GRETA RN Reason for Exam Mixed hyperlipidemia Performed By: #### C BC #### [facility] [address] [place] [address] [place] Platelet mean volume (Bld) [Entitic vol] 9.8 fL Normal 6.3-10.7 [facility] Comment on above: Order Comment: OK TO DO NOW PER GRETA RN Reason for Exam Mixed hyperlipidemia Performed By: #### C BC #### [facility] [address] [place] [id number] [facility] Platelets (Bld) [#/Vol] 231 10*3/uL Normal 150-450 [facility] Comment on above: Order Comment: OK TO DO NOW PER GRETA RN Reason for Exam Mixed hyperlipidemia Performed By: #### C BC #### [facility] [address] [place] [id number] [facility] RBC (Bld) [#/Vol] 4.76 10*6/uL Normal 3.60-5.00 [facility] Comment on above: Order Comment: OK TO DO NOW PER GRETA RN Reason for Exam Mixed hyperlipidemia Performed By: #### C BC #### [facility] [address] WBC (Bld) [#/Vol] 7.5 10*3/uL Normal 3.8-11.6 [facility] Comment on above: Order Comment: OK TO DO NOW PER GRETA RN Reason for Exam Mixed hyperlipidemia Performed By: #### C BC #### [facility] [address] [place] [id number] [facility] Creatinine [Mass/volume] in Serum or PlasmaOrdered By: Awais Bright on 04-15-2023 Creatinine [Mass/Vol] 0.75 mg/dL 0.60-1.20 [facility] Eosinophils Auto (Bld) [#/Vo l]Ordered By: Awais Bright on 04-15-2023 Eosinophils (Bld) [#/Vol] 0.1 10*3/uL 0.0-0.45 [facility] Eosinophils/100 WBC Auto (Bl d)Ordered By: Awais Bright on 04-15-2023 Eosinophils/100 WBC (Bld) 1.2 % . [facility] Erythrocyte distribution wid th Auto (RBC) [Ratio]Ordered By: Awais Bright on 04-15-2023 Erythrocyte distribution width (RBC) [Ratio] 13.8 % 11.9-15.3 [facility] Globulin Calc (S) [Mass/Vol] Ordered By: Awais Bright on 04-15-2023 Globulin (S) [Mass/Vol] 2.5 g/dL [facility] Glucose [Mass/volume] in Ser um or PlasmaOrdered By: Awais Bright on 04-15-2023 Glucose [Mass/Vol] 110 mg/dL 70-100 [facility] Comment on above: ADA recommended refe rence rangeRandom Glucose Reference Range is dependent on time and content of last meal. Glucose of more than 200 mg/dL in a nonstressed, ambulatory subject supports the diagnosis of Diabetes Mellitus. Glucose mean value [Mass/vol ume] in Blood Estimated from glycated hemoglobinOrdered By: Awais Bright on 04-15-2023 Average glucose Estimated from glycated hemoglobin (Bld) [Mass/Vol] 134 mg/dL [facility] Hematocrit Auto (Bld) [Volum e fraction]Ordered By: Awais Bright on 04-15-2023 Hematocrit (Bld) [Volume fraction] 40.8 % 34.0-46.4 [facility] Hemoglobin A1c percentageOrd ered By: Awais Bright on 04-15-2023 HbA1c (Bld) [Mass fraction] 6.3 % 4.3-5.6 [facility] Comment on above: Increased risk for d iabetes: 5.7 - 6.4diabetes: >6.4glycemic control for adults with diabetes: <7.0 Hemoglobin [Mass/volume] in BloodOrdered By: Awais Bright on 04-15-2023 Hemoglobin (Bld) [Mass/Vol] 13.6 g/dL 11.8-15.4 [facility] Hepatic Panelon 04-15-2023 Albumin [Mass/Vol] 4.1 g/dL Normal 3.5-5.7 [facility] Comment on above: Order Comment: OK TO DO NOW PER GRETA GAUTAM Reason for Exam Mixed hyperlipidemia Performed By: #### H EPATIC #### [facility] [address] [place] [address] [place] Albumin/Globulin [Mass ratio] 1.6 {ratio} Normal [facility] Comment on above: Order Comment: OK TO DO NOW PER GRETA GAUTAM Reason for Exam Mixed hyperlipidemia Performed By: #### H EPATIC #### [facility] [address] [place] [id number] [place] ALP [Catalytic activity/Vol] 59 U/L Normal 34-104 [facility] Comment on above: Order Comment: OK TO DO NOW PER GRETA RN Reason for Exam Mixed hyperlipidemia Result Comment: PERF ORMED BY: [place] [address] PATHOLOGIST MANAGER MAIL SILVINA MONTESINOS M.D. Performed By: #### H EPATIC #### [facility] [address] [place] [address] ALT [Catalytic activity/Vol] 16 U/L Normal 7-52 [facility] Comment on above: Order Comment: OK TO DO NOW PER GRETA RN Reason for Exam Mixed hyperlipidemia Performed By: #### H EPATIC #### [facility] [address] [place] [address] AST [Catalytic activity/Vol] 14 U/L Normal 13-39 [facility] Comment on above: Order Comment: OK TO DO NOW PER GRETA RN Reason for Exam Mixed hyperlipidemia Performed By: #### H EPATIC #### [facility] [address] [place] [address] Bilirubin [Mass/Vol] 0.5 mg/dL Normal 0.3-1.0 [facility] Comment on above: Order Comment: OK TO DO NOW PER GRETA RN Reason for Exam Mixed hyperlipidemia Performed By: #### H EPATIC #### [facility] [address] [place] [address] Bilirubin,Indirect 0.4 mg/dL Normal [facility] Comment on above: Order Comment: OK TO DO NOW PER GRETA RN Reason for Exam Mixed hyperlipidemia Performed By: #### H EPATIC #### [facility] [address] [place] [address] [place] Bilirubin.indirect [Mass/Vol] 0.10 mg/dL Normal 0.03-0.18 [facility] Comment on above: Order Comment: OK TO DO NOW PER GRETA RN Reason for Exam Mixed hyperlipidemia Performed By: #### H EPATIC #### [facility] [address] [place] [address] [place] Globulin (S) [Mass/Vol] 2.5 g/dL Normal [facility] Comment on above: Order Comment: OK TO DO NOW PER GRETA RN Reason for Exam Mixed hyperlipidemia Performed By: #### H EPATIC #### [facility] [address] [place] [address] Protein [Mass/Vol] 6.6 g/dL Normal 6.4-8.9 [facility] Comment on above: Order Comment: OK TO DO NOW PER GRETA RN Reason for Exam Mixed hyperlipidemia Performed By: #### H EPATIC #### [address] Ironon 04-15-2023 Iron [Mass/Vol] 92 ug/dL Normal 50-212 [facility] Comment on above: Performed By: #### A ST, BNP, ALT, LIPID #### [address] Iron [Mass/volume] in Serum or PlasmaOrdered By: López Kidd on 04-15-2023 Iron [Mass/Vol] 92 ug/dL 50-212 [facility] Leukocytes [#/volume] correc margarita for nucleated erythrocytes in Blood by Automated counOrdered By: Awais Bright on 04-15-2023 WBC corrected for nucl RBC Auto (Bld) [#/Vol] 7.5 10*3/uL 3.8-11.6 [facility] Lipid Panelon 04-15-2023 Cholesterol [Mass/Vol] 190 mg/dL Normal 140-200 [facility] Comment on above: Order Comment: PT IS FASTING Result Comment: Chol less than 200 mg/dl low risk Chol 201-239 mg/dl borderline risk Chol 240 mg/dl and greater high risk Performed By: #### A ST, BNP, ALT, LIPID #### [facility] [address] [place] [address] Cholesterol in HDL [Mass/Vol] 49 mg/dL Normal 23-92 [facility] Comment on above: Order Comment: PT IS FASTING Result Comment: HDL CHOL ATP-III CLASSIFICATION Cardiovascular Risk HDL > or equal to 60 mg/dL LOW HDL < 40 mg/dL HIGH Performed By: #### A ST, BNP, ALT, LIPID #### [place] [id number] [place] Cholesterol.total/Cho lesterol in HDL [Mass ratio] 3.9 {ratio} Normal <5.0 [facility] Comment on above: Order Comment: PT IS FASTING Result Comment: PERF ORMED BY: [place] [address] PATHOLOGIST MANAGER MAIL SILVINA MONTESINOS M.D. Performed By: #### A ST, BNP, ALT, LIPID #### [address] LDL Cholesterol,Calculate d 109 mg/dL High 0-100 [facility] Comment on above: Order Comment: PT IS FASTING Result Comment: LDL ATP III CLASSIFICATION LDL less than 100 mg/dL Optimal LDL 100-129 mg/dL Near or above optimal LDL 130-159 mg/dL Borderline high LDL 160-189 mg/dL High LDL greater than 189 mg/dL Very high Performed By: #### A ST, BNP, ALT, LIPID #### [address] Triglyceride w/Reflex 162 mg/dL High 0-149 [facility] Comment on above: Order Comment: PT IS FASTING Result Comment: TRIG ATP III CLASSIFICATION TRIG less than 150 mg/dL Normal TRIG 150-199 mg/dL Borderline high TRIG 200-500 mg/dL High TRIG greater than 500 mg/dL Very high Standard traceable to the Center for Disease Conrtrol and Prevention (CDC) test method. Performed By: #### A ST, BNP, ALT, LIPID #### [address] VLDL CHOLESTEROL 32 mg/dL Normal [facility] Comment on above: Order Comment: PT IS FASTING Performed By: #### A ST, BNP, ALT, LIPID #### [facility] [address] Lymphocytes Auto (Bld) [#/Vo l]Ordered By: Awais Bright on 04-15-2023 Lymphocytes (Bld) [#/Vol] 1.9 10*3/uL 1.00-4.8 [facility] Lymphocytes/100 WBC Auto (Bl d)Ordered By: Awais Bright on 04-15-2023 Lymphocytes/100 WBC (Bld) 25.1 % . [facility] MCH Auto (RBC) [Entitic mass ]Ordered By: Awais Bright on 04-15-2023 MCH (RBC) [Entitic mass] 28.5 pg 24.7-34.3 [facility] MCHC Auto (RBC) [Mass/Vol]Or dered By: Awais Bright on 04-15-2023 MCHC (RBC) [Mass/Vol] 33.2 g/dL 32.0-35.0 [facility] MCV Auto (RBC) [Entitic vol] Ordered By: Awais Bright on 04-15-2023 MCV (RBC) [Entitic vol] 85.7 fL 80-100 [facility] Monocytes Auto (Bld) [#/Vol] Ordered By: Awais Bright on 04-15-2023 Monocytes (Bld) [#/Vol] 0.4 10*3/uL 0.0-0.8 [facility] Monocytes/100 WBC Auto (Bld) Ordered By: Awais Bright on 04-15-2023 Monocytes/100 WBC (Bld) 4.9 % . [facility] Neutrophils Auto (Bld) [#/Vo l]Ordered By: Awais Bright on 04-15-2023 Neutrophils (Bld) [#/Vol] 5.1 10*3/uL 1.8-7.7 [facility] Neutrophils/100 WBC Auto (Bl d)Ordered By: Awais Bright on 04-15-2023 Neutrophils/100 WBC (Bld) 68.2 % . [facility] No Panel InformationOrdered By: Awais Bright on 04-15-2023 Estimated GFR (CKD-EPI) > 60.0 mL/Min [facility] Creatinine Clearance (Chem N/A [facility] Nucleated erythrocytes [Pres ence] in Blood by Automated countOrdered By: Awais Bright on 04-15-2023 Nucleated RBC Auto Ql (Bld) 0.1 /100{WBC} 0-0.5 [facility] Parathyrin.intact [Mass/volu me] in Serum or PlasmaOrdered By: López Kidd on 04-15-2023 Parathyrin.intact [Mass/Vol] 31.3 pg/mL [facility] Parathyroid Hormone Intacton 04-15-2023 Parathyroid Hormone Intact 31.3 pg/mL Normal [facility] Comment on above: Result Comment: PERF ORMED BY: [facility] [address] [place] [address] PATHOLOGIST MANAGER MAIL SILVINA MONTESINOS M.D. Performed By: #### A ST, BNP, ALT, LIPID #### [facility] [address] Platelet mean volume Auto (B ld) [Entitic vol]Ordered By: Awais Bright on 04-15-2023 Platelet mean volume (Bld) [Entitic vol] 9.8 fL 6.3-10.7 [facility] Platelets Auto (Bld) [#/Vol] Ordered By: Awais Bright on 04-15-2023 Platelets (Bld) [#/Vol] 231 10*3/uL 150-450 [facility] Potassium [Moles/volume] in Serum or PlasmaOrdered By: Awais Bright on 04-15-2023 Potassium [Moles/Vol] 4.1 mmol/L 3.5-5.1 [facility] Protein [Mass/volume] in Ser um or PlasmaOrdered By: Awais Bright on 04-15-2023 Protein [Mass/Vol] 6.6 g/dL 6.4-8.9 [facility] RBC Auto (Bld) [#/Vol]Ordere d By: Awais Bright on 04-15-2023 RBC (Bld) [#/Vol] 4.76 10*6/uL 3.60-5.00 [facility] Serum or plasma albumin/glob ulin mass ratioOrdered By: Awais Bright on 04-15-2023 Albumin/Globulin [Mass ratio] 1.6 {ratio} [facility] Serum or plasma anion gap de terminationOrdered By: Awais Bright on 04-15-2023 Anion gap [Moles/Vol] 12.8 mmol/L 6.0-15.0 [facility] Serum or plasma high density lipoprotein (HDL) cholesterol measurementOrdered By: Awais Brgiht on 04-15-2023 Cholesterol in HDL [Mass/Vol] 49 mg/dL 23-92 [facility] Comment on above: HDL CHOL ATP-III CLA SSIFICATION Cardiovascular RiskHDL > or equal to 60 mg/dL LOWHDL < 40 mg/dL HIGH Serum or plasma non-glucuron idated bilirubin measurement (mass/volume)Ordered By: Awais Bright on 04-15-2023 Bilirubin.indirect [Mass/Vol] 0.4 mg/dL [facility] Serum or plasma total choles terol/high density lipoprotein (HDL) cholesterol mass ratOrdered By: Awais Bright on 04-15-2023 Cholesterol.total/Cho lesterol in HDL [Mass ratio] 3.9 {ratio} <5.0 [facility] Sodium [Moles/volume] in Ser um or PlasmaOrdered By: Awais Bright on 04-15-2023 Sodium [Moles/Vol] 139 mmol/L 136-145 [facility] Thyroid Stimulating Hormoneo n 04-15-2023 TSH Qn 1.31 m[IU]/L Normal 0.45-5.33 [facility] Comment on above: Performed By: #### A ST, BNP, ALT, LIPID #### [address] Thyrotropin [Units/volume] i n Serum or PlasmaOrdered By: López Kidd on 04-15-2023 TSH Qn 1.31 m[IU]/L 0.45-5.33 [facility] Triglyceride [Mass/volume] i n Serum or PlasmaOrdered By: Awais Bright on 04-15-2023 Triglyceride [Mass/Vol] 162 mg/dL 0-149 [facility] Comment on above: TRIG ATP III CLASSIF ICATIONTRIG less than 150 mg/dL NormalTRIG 150-199 mg/dL Borderline highTRIG 200-500 mg/dL High TRIG greater than 500 mg/dL Very highStandard traceable to the Center for Disease Conrtrol and Prevention (CDC) test method. Urea nitrogen [Mass/volume] in Serum or PlasmaOrdered By: Awais Bright on 04-15-2023 Urea nitrogen [Mass/Vol] 27 mg/dL 7-25 [facility] Vitamin B1 (Thiamine) Bloodo n 04-15-2023 Vitamin B1 (Thiamine) Blood 153.0 Normal 66.5-200.0 [facility] Comment on above: Result Comment: This test was developed and its performance characteristics determined by [facility]. It has not been cleared or approved by the Food and Drug Administration. Performed at: [facility] [address] [id number] Instrumentation Chemist: Argenis Reynolds MD, Phone: [phone] PERFORMED BY: [address] [place] [address] PATHOLOGIST MANAGER MAIL SILVINA MONTESINOS M.D. Performed By: #### A ST, BNP, ALT, LIPID #### [facility] [address] [place], [place] [id number] [facility] Vitamin B12on 04-15-2023 Cobalamin (Vitamin B12) [Mass/Vol] 810 pg/mL Normal 180-914 [facility] Comment on above: Performed By: #### A ST, BNP, ALT, LIPID #### [facility] [address] [place], [place] [id number] [facility] Vitamin B12 ser/plasOrdered By: López Kidd on 04-15-2023 Cobalamin (Vitamin B12) [Mass/Vol] 810 pg/mL 180-914 [facility] Vitamin D 25 Hydroxy Totalon 04-15-2023 Vitamin D 25 Hydroxy Total 25.1 ng/mL Low 30-100 [facility] Comment on above: Result Comment: NORMA MIN D STATUS 25(OH)VITAMIN D RANGE (ng/mL) Deficient <20 Insufficient 20 to <30 Sufficient 30 to 100 Reference: Yasmany MF,Chelsy NC, Corina MAYER, et al. Evaluation,treatment, and prevention of vitamin D deficiency; an Endocrine Society clinical practice guideline. JCEM. 2010; 96(7):1911-30. PERFORMED BY: [address] [address] PATHOLOGIST MANAGER MAIL SILVINA MONTESINOS M.D. Performed By: #### A ST, BNP, ALT, LIPID #### [facility] [address] Vitamin D+Metabolites [Mass/ volume] in Serum or PlasmaOrdered By: López Kidd on 04-15-2023 Vitamin D+Metabolites [Mass/Vol] 25.1 ng/mL 30-100 [facility] Comment on above: VITAMIN D STATUS 25( [place])VITAMIN D RANGE (ng/mL) Deficient <20 Insufficient 20 to <30Sufficient 30 to 100Reference: Yasmany MF,Chelsy NC, Corina MAYER, et al. Evaluation,treatment, and prevention of vitamin D deficiency; an Endocrine Society clinical practice guideline. JCEM. 2010; 96(7):1911-30. WBC Auto (Bld) [#/Vol]Ordere d By: Awais Bright on 04-15-2023 WBC (Bld) [#/Vol] 7.5 10*3/uL 3.8-11.6 [facility] CARDIAC STRESS/REST INJE CTIONon 02-13-2023 [facility] CARDIAC STRESS/REST INJECTION Patient Name: PAIGE MCCARTY STUDY: MYOCARDIAL PERFUSION STRESS TEST WITH LEXISCAN Performing facility: [facility], [address] [place] [address], [address], [address] Provider: Terese Braxton MD, [facility] PCP: Dr. Lisa Bright Supervising provider: Juan Sharp MD INDICATION: Abnormal EKG; Fatigue SOB HISTORY: Gender: F; Age: 57 y/o ; Height: 0 cm; Weight: 138.867087 kg. Abnormal EKG; High Cholesterol; HTN; SOB; Fatigue; Currently smoking. COMPARISON: No comparison. ACCESSION NUMBER(S): [id number]; [id number]; [id number] ORDERING CLINICIAN: TERESE BRAXTON TECHNIQUE: TWO DAY protocol. Stress injection: Date:02-13-23, 32.0 mCi of Myoview IV 20 seconds after rapid injection of Lexiscan. Rest injection: Date: 02-14-23, 35.6 mCi of Myoview IV at rest. The patient had a rapid injection of 0.4 mg of Lexiscan IV over 10 seconds. Imaging was performed by gated tomographic technique. Reason for Lexiscan: Obesity, SOB STRESS TEST DATA: Resting heart rate was 79 BPM. Resting blood pressure was 128/92 mmHg. Peak blood pressure was 118/78 mmHg. Peak heart rate was 100 BPM. TEST TERMINATED DUE TO: Protocol completed FINDINGS: STRESS TEST RESULTS: Resting electrocardiogram revealed normal sinus rhythm. There were no significant ischemic ECG changes or dysrhythmias. The patient did not have chest pains/symptoms during procedure. There was a normal recovery phase. IMAGING RESULTS: Image quality was suboptimal secondary to soft tissue attenuation. Rest and stress tomographic images were reviewed and revealed normal perfusion without evidence of ischemia, myocardial infarction, or left ventricular dilatation with stress. Overall left ventricular systolic function appeared to be normal without regional wall motion abnormalities. Ejection fraction was 56%. TID is 1.11 and is normal. There was significant evidence of breast attenuation artifact. IMPRESSION: Normal Lexiscan Myoview cardiac perfusion stress test. No evidence of ischemia or myocardial infarction by perfusion imaging. Normal left ventricular systolic function, ejection fraction of 56% breast attenuation of the anterior wall. No previous study available for comparison. Electronically signed by: JUAN SHARP MD Normal [facility] No Panel Informationon 02-13 Normal -[facility] 250 DO Work Phone: Basic Metabolic Panelon 03- Anion gap [Moles/Vol] 10.9 mmol/L Normal 6.0-15.0 [facility] Comment on above: Order Comment: ROBIN BOSS Performed By: #### B MP #### [address] [address] [facility] Calcium [Mass/Vol] 9.4 mg/dL Normal 8.6-10.3 [facility] Comment on above: Order Comment: ROBIN BOSS Result Comment: PERF ORMED BY: [address] [address] PATHOLOGIST MANAGER MAIL SILVINA MONTESINOS M.D. Performed By: #### B MP #### [facility] [address] Chloride [Moles/Vol] 104 mmol/L Normal 98-107 [facility] Comment on above: Order Comment: FASTI NG. JKW Performed By: #### B MP #### [facility] [address] CO2 [Moles/Vol] 27.2 mmol/L Normal 21.0-31.0 [facility] Comment on above: Order Comment: FASTI NG. JKW Performed By: #### B MP #### [address] Creatinine [Mass/Vol] 0.80 mg/dL Normal 0.60-1.20 [facility] Comment on above: Order Comment: FASTI NG. JKW Performed By: #### B MP #### [place] [address] [place] GFR/1.73 sq M.predicted MDRD (S/P/Bld) [Vol rate/Area] mL/min/{1.73_m2} Normal [facility] Comment on above: Order Comment: FASTI NG. JKW Performed By: #### B MP #### [address] Glucose [Mass/Vol] 134 mg/dL High 70-100 [facility] Comment on above: Order Comment: FASTI NG. JKW Result Comment: [place] Glucose Reference Range is dependent on time and content of last meal. Glucose of more than 200 mg/dL in a nonstressed, ambulatory subject supports the diagnosis of Diabetes Mellitus. ADA recommended reference range Performed By: #### B MP #### [place] [address] [place] Potassium [Moles/Vol] 4.1 mmol/L Normal 3.5-5.1 [facility] Comment on above: Order Comment: FASTI NG. JKW Performed By: #### B MP #### [place] [address] [place] Sodium [Moles/Vol] 138 mmol/L Normal 136-145 [facility] Comment on above: Order Comment: FASTI ELIOT. JKW Performed By: #### B MP #### [facility] [address] [place] [address] [place] Urea nitrogen [Mass/Vol] 22 mg/dL Normal 7-25 [facility] Comment on above: Order Comment: FASTI NG. JKW Performed By: #### B MP #### [facility] [address] [place] [address] [place] Calcium [Mass/volume] in Ser um or PlasmaOrdered By: Terese Braxton on 01-25-2023 Calcium [Mass/Vol] 9.4 mg/dL 8.6-10.3 [facility] Carbon dioxide, total [Moles /volume] in Serum or PlasmaOrdered By: Terese Braxton on 01-25-2023 CO2 [Moles/Vol] 27.2 mmol/L 21.0-31.0 [facility] Chloride [Moles/volume] in S anh or PlasmaOrdered By: Terese Braxton on 01-25-2023 Chloride [Moles/Vol] 104 mmol/L 98-107 [facility] Creatinine [Mass/volume] in Serum or PlasmaOrdered By: Terese Braxton on 01-25-2023 Creatinine [Mass/Vol] 0.80 mg/dL 0.60-1.20 [facility] Glucose [Mass/volume] in Ser um or PlasmaOrdered By: Terese Braxton on 01-25-2023 Glucose [Mass/Vol] 134 mg/dL 70-100 [facility] Comment on above: ADA recommended refe rence rangeRandom Glucose Reference Range is dependent on time and content of last meal. Glucose of more than 200 mg/dL in a nonstressed, ambulatory subject supports the diagnosis of Diabetes Mellitus. No Panel InformationOrdered By: Terese Braxton on 01-25-2023 Estimated GFR (CKD-EPI) > 60.0 mL/Min [facility] Creatinine Clearance (Chem N/A [facility] No Panel Informationon 01-25 > 60.0 Normal -[facility] 250 DO Work Phone: 10.9\S\10.9 Normal 6.0-15.0 [facility] 250 DO Work Phone: 9.4\S\9.4 Normal 8.6-10.3 [facility] 250 DO Work Phone: Comment on above: PERFORMED BY:[facility] [place], [place] [id number] MEDICAL DIRECTORSILVINA MONTESINOS M.D. 27.2\S\27.2 Normal 21.0-31.0 [facility] 250 DO Work Phone: 104\S\104 Normal 98-107 [facility] 250 DO Work Phone: 4.1\S\4.1 [facility] 3.5-5.1 [facility] Work Phone: 138\S\138 Normal 136-145 [facility] Work Phone: 0.80\S\0.80 Normal 0.60-1.20 [facility] Aleshia 250 DO Work Phone: 22\S\22 Normal 7-25 [facility] 250 DO Work Phone: 134\S\134 above high threshold 70-100 [facility] 250 DO Work Phone: Comment on above: Random Glucose Refer ence Range is dependent on time and content of last meal. Glucose of more than 200 mg/dL in a nonstressed, ambulatory subject supports the diagnosis of Diabetes Mellitus. ADA recommended reference range Potassium [Moles/volume] in Serum or PlasmaOrdered By: Terese Braxton on 01-25-2023 Potassium [Moles/Vol] 4.1 mmol/L 3.5-5.1 [facility] Serum or plasma anion gap de terminationOrdered By: Terese Braxton on 01-25-2023 Anion gap [Moles/Vol] 10.9 mmol/L 6.0-15.0 [facility] Sodium [Moles/volume] in Ser um or PlasmaOrdered By: Terese Braxton on 01-25-2023 Sodium [Moles/Vol] 138 mmol/L 136-145 [facility] Urea nitrogen [Mass/volume] in Serum or PlasmaOrdered By: Terese Braxton on 01-25-2023 Urea nitrogen [Mass/Vol] 22 mg/dL 7-25 [facility] Office Visit (Cardiology)on 01-21-2023 Follow-up visit Diagnoses/Problems Assessed Encounter to discuss test results (V65.49) (Z71.2) Shortness of breath (786.05) (R06.02) Mixed hyperlipidemia (272.2) (E78.2) Morbid obesity with BMI of 50.0-59.9, adult (278.01,V85.43) (E66.01,Z68.43) Current every day smoker (305.1) (F17.200) 1 PPD Hypertension (401.9) (I10) Medication course changed (V58.69) (Z79.899) Fatigue (780.79) (R53.83) Orders Abnormal ECG, Fatigue, Mixed hyperlipidemia, Shortness of breath Comprehensive Metabolic Panel; Status:Active; Requested for:28Jun2023; Lipid Panel; Status:Active; Requested for:28Jun2023; Abnormal ECG, Fatigue, Shortness of breath NM Cardiac Stress/Rest Nuclear Med Order; Status:Active; Requested for:13Feb2023; Radiologist to Determine Optimal Study : Y What are the patient's signs and symptoms? : abn ekg fatigue sob Hypertension Start: Lisinopril 20 MG Oral Tablet; TAKE 1 TABLET DAILY DIRECTED Basic Metabolic Panel; Status:Active; Requested for:28Jan2023; Morbid obesity with BMI of 50.0-59.9, adult Healthy Weight Tips; Status:Complete; Done: 21Jan2023 Some eating tips that can help you lose weight.; Status:Complete; Done: 21Jan2023 SocHx: Current every day smoker Tobacco Use Screening; Status:Complete; Done: 21Jan2023 You need to stop smoking. Though it is not easy, more than half of all adult smokers have quit. We encourage you to write down all the reasons you should quit smoking and set a quit date for yourself. Ask us how we can help. You may also call 2-005-QPMK-NOW for free resources and assistance.; Status:Complete; Done: 21Jan2023 Unlinked Stop: Lisinopril 10 MG Oral Tablet Patient Instructions Please bring all medicines, vitamins, and herbal supplements with you when you come to the office. Prescriptions will not be filled unless you are compliant with your follow up appointments or have a follow up appointment scheduled as per instruction of your physician. Refills should be requested at the time of your visit. PCP to manage blood pressure will call patient results of Lexiscan testing Follow up in 6 months The provider reviewed the following test(s) and result(s) with the patient: echocardiogram, laboratory tests and PFT testing Chief Complaint PAIGE MCCARTY is being seen for echo results. History of Present Illness Patient was most recently seen November 22, 2022, and presents for follow-up after testing to include echocardiogram pulmonary function testing and blood work.. Patient has lost 5 pounds since her last visit. She has an appointment for bariatric surgical options next week with [facility]. She is making effort to quit smoking. She is currently using vape pens with 0 nicotine. Primary MD increased hydrochlorothiazide. Blood pressure is still above target. She says she had a sleep study about a year ago, and was recommended CPAP. She is not using CPAP therapy she uses an fuiz-and-scwollh pill for diuresis, it actually does not have a diuretic in it but has caffeine and magnesium. Results of the echocardiogram was reviewed, lab results were also reviewed, LVEF is preserved, there is evidence of diastolic dysfunction, RV systolic pressure could not be estimated. I have reviewed hematology oncology notes from April 2018. Laboratory data from December 2022 show a total cholesterol of 161 HDL 53 triglycerides 156 LDL 77. Pulmonary function testing was reviewed as well. Test results were discussed with patient. Assessment: 1. Progressively worsening exertional shortness of breath functional class III with bouts of orthopnea, the orthopnea is mostly due to coughing spells. 2. I suspect that her shortness of breath is related to her morbid obesity and underlying lung disease with ongoing nicotine addiction. 3. Given her risk factors and postmenopausal status, clearly cannot exclude anginal equivalent as etiology of shortness of breath but it is less likely 4. Morbid obesity, she has tried to quit smoking but says that she gains about 20 pounds every time she tries 5. Current functional capacity seems to be less than 4 METS 6. Evidence of peripheral vascular disease on examination in the left foot, decreased pulses without evidence of rest ischemia or clear-cut claudication or ulcers 7. Incomplete right bundle branch block 8. Chronic fatigue 9. 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 Status postcholecystectomy and hysterectomy 12. No prior history of DVT or pulmonary embolism 13. Left upper quadrant tenderness to deep palpation, significance unclear, defer to primary 14. Hypertension-essential, at target 15. Hyperlipidemia-I was able to subsequently review lab data from Dr. Bright's office, in September 2022 total cholesterol 245 HDL 60 triglycerides 200 LDL 145 16. Hyperglycemia,? Diabetes, hemoglobin A1c 10/17 (more content not included)... Normal Checkr Tobacco Screening.on 023 Tobacco use status [facility]PH[facility] b) No [facility] 250 DO Work Phone: Alanine Aminotransferaseon 0 01-09-2023 ALT [Catalytic activity/Vol] 14 U/L Normal [facility] Comment on above: Order Comment: PT IS FASTING Performed By: #### A ST, BNP, ALT, LIPID #### [facility] [address] Alanine aminotransferase [En zymatic activity/volume] in Serum or PlasmaOrdered By: Terese Braxton on 01-09-2023 ALT [Catalytic activity/Vol] 14 U/L [facility] Aspartate Amino Transferaseo n 01-09-2023 AST [Catalytic activity/Vol] 14 U/L Normal [facility] Comment on above: Order Comment: PT IS FASTING Performed By: #### A ST, BNP, ALT, LIPID #### [facility] [address] [place] [id number] [facility] Aspartate aminotransferase [ Enzymatic activity/volume] in Serum or PlasmaOrdered By: Terese Braxton on 01-09-2023 AST [Catalytic activity/Vol] 14 U/L [facility] B-Type Natriuretic Peptideon 01-09-2023 Natriuretic peptide B (Bld) [Mass/Vol] 22.0 pg/mL Normal 5-100 [facility] Comment on above: Result Comment: PERF ORMED BY: [place] [address] PATHOLOGIST MANAGER MAIL SILVINA MONTESINOS M.D. Performed By: #### A ST, BNP, ALT, LIPID #### [address] Cholesterol [Mass/volume] in Serum or PlasmaOrdered By: Terese Braxton on 01-09-2023 Cholesterol [Mass/Vol] 161 mg/dL 140-200 [facility] Comment on above: Chol less than 200 m g/dl low riskChol 201-239 mg/dl borderline riskChol 240 mg/dl and greater high risk Cholesterol in LDL Calc [Mas s/Vol]Ordered By: Terese Braxton on 01-09-2023 Cholesterol in LDL [Mass/Vol] 77 mg/dL 0-100 [facility] Comment on above: LDL ATP III CLASSIFI CATIONLDL less than 100 mg/dL OptimalLDL 100-129 mg/dL Near or above optimalLDL 130-159 mg/dL Borderline highLDL 160-189 mg/dL HighLDL greater than 189 mg/dL Very high Cholesterol in VLDL Calc [Ma ss/Vol]Ordered By: Terese Braxton on 01-09-2023 Cholesterol in VLDL [Mass/Vol] 31 mg/dL [facility] Echocardiogramon 01-09-[address], [address] [place] [address] TRANSTHORACIC ECHOCARDIOGRAM REPORT Patient Name: PAIGE Minor Physician: [id number] Juan Sharp MD Study Date: 01/09/2023 Referring Physician: TERESE BRAXTON MRN/PID: [id number] PCP: Awais Bright MD Accession/Order#: [id number] Department Location: [facility] Date of : 1965 Fellow: Gender: F Nurse: Jayme Odonnell RN Admit Date: Manager Clinical Informatics: Nat Saha RDCS, RVT Height: 157.48 cm CC Report to: Weight: 136.53 kg Study Type: Echocardiogram BSA: 2.27 m2 Diagnosis/ICD: R94.31-Abnormal electrocardiogram [ECG] [EKG]; R06.02-Shortness of breath Indication: HTN, Hyperlipidemia, Tobacco Abuse, Morbid Obesity, Clotting Disorder Procedure/CPT: Echo Complete w Full [id number] Study Detail: The following Echo studies were performed: 2D, M-Mode, Doppler and color flow. Optison used as a contrast agent for endocardial border definition. Total contrast used for this procedure was 0.7 mL via IV push. PHYSICIAN INTERPRETATION: Left Ventricle: Left ventricular systolic function is normal, with an estimated ejection fraction of 60%. There are no regional wall motion abnormalities. The left ventricular cavity size is normal. Spectral Doppler shows an impaired relaxation pattern of left ventricular diastolic filling. Left Atrium: The left atrium is normal in size. Right Ventricle: The right ventricle is normal in size. There is normal right ventricular global systolic function. Right Atrium: The right atrium is normal in size. Aortic Valve: The aortic valve appears structurally normal. There is no evidence of aortic valve regurgitation. The peak instantaneous gradient of the aortic valve is 10.8 mmHg. The mean gradient of the aortic valve is 5.0 mmHg. Mitral Valve: The mitral valve is normal in structure. There is no evidence of mitral valve regurgitation. Tricuspid Valve: The tricuspid valve is structurally normal. There is trace tricuspid regurgitation. Pulmonic Valve: The pulmonic valve is structurally normal. There is no indication of pulmonic valve regurgitation. Pericardium: There is no pericardial effusion noted. Aorta: The aortic root is normal. CONCLUSIONS: 1. Left ventricular systolic function is normal with a 60% estimated ejection fraction. 2. Spectral Doppler shows an impaired relaxation pattern of left ventricular diastolic filling. 3. No previous study available for comparison. QUANTITATIVE DATA SUMMARY: 2D MEASUREMENTS: Normal Ranges: Ao Root d: 2.70 cm (2.0-3.7cm) LAs: 2.90 cm (2.7-4.0cm) RVIDd: 3.10 cm (0.9-3.6cm) IVSd: 1.00 cm (0.6-1.1cm) LVPWd: 0.90 cm (0.6-1.1cm) LVIDd: 4.70 cm (3.9-5.9cm) LVIDs: 3.50 cm LV Mass Index: 67.5 g/m2 LV % FS 25.5 % LV SYSTOLIC FUNCTION BY 2D PLANIMETRY (MOD): Normal Ranges: EF-A4C View: 65.2 % (>=55%) LV DIASTOLIC FUNCTION: Normal Ranges: MV Peak E: 0.73 m/s (0.7-1.2 m/s) MV Peak A: 0.96 m/s (0.42-0.7 m/s) E/A Ratio: 0.75 (1.0-2.2) MV lateral e' 0.09 m/s MV medial e' 0.09 m/s E/e' Ratio: 7.90 (<8.0) MITRAL VALVE: Normal Ranges: MV Vmax: 1.23 m/s (<=1.3m/s) MV peak P.1 mmHg (<5mmHg) MV mean P.0 mmHg (<48mmHg) AORTIC VALVE: Normal Ranges: AoV Vmax: 1.64 m/s (<=1.7m/s) AoV Peak P.8 mmHg (<20mmHg) AoV Mean P.0 mmHg (1.7-11.5mmHg) LVOT Max Jose Angel: 0.97 m/s (<=1.1m/s) AoV VTI: 30.50 cm (18-25cm) LVOT VTI: 23.40 cm LVOT Diameter: 2.10 cm (1.8-2.4cm) AoV Area, VTI: 2.66 cm2 (2.5-5.5cm2) AoV Area,Vmax: 2.05 cm2 (2.5-4.5cm2) AoV Dimensionless Index: 0.77 PULMONIC VALVE: Normal Ranges: PV Max Jose Angel: 0.9 m/s (0.6-0.9m/s) PV Max P.1 mmHg [id number] Juan Sharp MD Electronically signed on 01/09/2023 at 5:33:40 PM Final Normal [facility] Laboratory - Chemistry and C hemistry - challengeon 01-09-2023 Cholesterol [Mass/Vol] 161\S\161 Normal 140-200 [facility] 250 DO Work Phone: Comment on above: Chol less than 200 m g/dl low risk Chol 201-239 mg/dl borderline risk Chol 240 mg/dl and greater high risk Cholesterol in LDL [Mass/Vol] 77\S\77 Normal 0-100 [facility] 250 DO Work Phone: Comment on above: LDL ATP III CLASSIFI CATION LDL less than 100 mg/dL Optimal LDL 100-129 mg/dL Near or above optimal LDL 130-159 mg/dL Borderline high LDL 160-189 mg/dL High LDL greater than 189 mg/dL Very high Lipid Panelon 01-09-2023 Cholesterol [Mass/Vol] 161 mg/dL Normal 140-200 [facility] Comment on above: Order Comment: PT IS FASTING Result Comment: Chol less than 200 mg/dl low risk Chol 201-239 mg/dl borderline risk Chol 240 mg/dl and greater high risk Performed By: #### A ST, BNP, ALT, LIPID #### [facility] [address] [place] [address] [place] Cholesterol in HDL [Mass/Vol] 53 mg/dL Normal 35-85 [facility] Comment on above: Order Comment: PT IS FASTING Result Comment: HDL CHOL ATP-III CLASSIFICATION Cardiovascular Risk HDL > or equal to 60 mg/dL LOW HDL < 40 mg/dL HIGH Performed By: #### A ST, BNP, ALT, LIPID #### [facility] [address] Cholesterol.total/Cho lesterol in HDL [Mass ratio] 3.0 {ratio} Normal <5.0 [facility] Comment on above: Order Comment: PT IS FASTING Result Comment: PERF ORMED BY: [facility] [address] [place] [address] PATHOLOGIST MANAGER MAIL SILVINA MONTESINOS M.D. Performed By: #### A ST, BNP, ALT, LIPID #### [facility] [address] [place] [id number] [place] LDL Cholesterol,Calculate d 77 mg/dL Normal 0-100 [facility] Comment on above: Order Comment: PT IS FASTING Result Comment: LDL ATP III CLASSIFICATION LDL less than 100 mg/dL Optimal LDL 100-129 mg/dL Near or above optimal LDL 130-159 mg/dL Borderline high LDL 160-189 mg/dL High LDL greater than 189 mg/dL Very high Performed By: #### A ST, BNP, ALT, LIPID #### [facility] [address] [place] [address] [facility] Triglyceride w/Reflex 156 mg/dL High 0-149 [facility] Comment on above: Order Comment: PT IS FASTING Result Comment: TRIG ATP III CLASSIFICATION TRIG less than 150 mg/dL Normal TRIG 150-199 mg/dL Borderline high TRIG 200-500 mg/dL High TRIG greater than 500 mg/dL Very high Standard traceable to the Center for Disease Conrtrol and Prevention (CDC) test method. Performed By: #### A ST, BNP, ALT, LIPID #### [facility] [address] [place] [address] [facility] VLDL CHOLESTEROL 31 mg/dL Normal [facility] Comment on above: Order Comment: PT IS FASTING Performed By: #### A ST, BNP, ALT, LIPID #### [facility] [address] [place] [address] [place] Natriuretic peptide B [Mass/ Vol]Ordered By: Terese Braxton on 01-09-2023 Natriuretic peptide B (Bld) [Mass/Vol] 22.0 pg/mL 5-100 [facility] No Panel Informationon 01-09 14\S\14 Normal 7-52 [facility] 250 DO Work Phone: 3.0\S\3.0 Normal <5.0 [facility] 250 DO Work Phone: Comment on above: PERFORMED BY:[facility] [place] [address] [phone] MEDICAL DIRECTORSILVINA MONTESINOS M.D. 31\S\31 Normal [facility] 250 DO Work Phone: 156\S\156 above high threshold 0-149 [facility] 250 DO Work Phone: Comment on above: TRIG ATP III CLASSIF ICATION TRIG less than 150 mg/dL Normal TRIG 150-199 mg/dL Borderline high TRIG 200-500 mg/dL High TRIG greater than 500 mg/dL Very high Standard traceable to the Center for Disease Conrtrol and Prevention (CDC) test method. 53\S\53 Normal 35-85 -[facility] 250 DO Work Phone: Comment on above: HDL CHOL ATP-III CLA SSIFICATION Cardiovascular Risk HDL > or equal to 60 mg/dL LOW HDL < 40 mg/dL HIGH 22.0\S\22.0 Normal 5-100 [facility] 250 DO Work Phone: Comment on above: PERFORMED BY:[place] [address] [address] [place], [place] [phone] MEDICAL DIRECTORSILVINA MONTESINOS M.D. Serum or plasma high density lipoprotein (HDL) cholesterol measurementOrdered By: Terese Braxton on 01-09-2023 Cholesterol in HDL [Mass/Vol] 53 mg/dL 35-85 [facility] Comment on above: HDL CHOL ATP-III CLA SSIFICATION Cardiovascular RiskHDL > or equal to 60 mg/dL LOWHDL < 40 mg/dL HIGH Serum or plasma total choles terol/high density lipoprotein (HDL) cholesterol mass ratOrdered By: Terese Braxton on 01-09-2023 Cholesterol.total/Cho lesterol in HDL [Mass ratio] 3.0 {ratio} <5.0 [facility] Triglyceride [Mass/volume] i n Serum or PlasmaOrdered By: Terese Braxton on 01-09-2023 Triglyceride [Mass/Vol] 156 mg/dL 0-149 [facility] Comment on above: TRIG ATP III CLASSIF ICATIONTRIG less than 150 mg/dL NormalTRIG 150-199 mg/dL Borderline highTRIG 200-500 mg/dL High TRIG greater than 500 mg/dL Very highStandard traceable to the Center for Disease Conrtrol and Prevention (CDC) test method. Office Visit (Cardiology)on 11-22-2022 Follow-up visit Diagnoses/Problems Assessed Patient new to provider Clotting disorder (286.9) (D68.9) Shortness of breath (786.05) (R06.02) Abnormal ECG (794.31) (R94.31) Fatigue (780.79) (R53.83) Disturbance, sleep (780.50) (G47.9) Morbid obesity with BMI of 50.0-59.9, adult (278.01,V85.43) (E66.01,Z68.43) Current every day smoker (305.1) (F17.200) 1 PPD Orders Abnormal ECG, Shortness of breath Brain Natriuretic Peptide BNP; Status:Active; Requested for:22Nov2022; Echocardiogram; Status:Hold For - Scheduling; Requested for:22Nov2022; IO EKG Electrocardiogram- 12 Lead; Status:Complete; Done: 22Nov2022 Pulmonary Function Test with DLCO; Status:Active; Requested for:22Nov2022; Pulmonary Function Test with/without bronchodilators; Status:Active; Requested for:22Nov2022; Morbid obesity with BMI of 50.0-59.9, adult Healthy Weight Tips; Status:Complete; Done: 22Nov2022 Some eating tips that can help you lose weight.; Status:Complete; Done: 22Nov2022 SocHx: Current every day smoker You need to stop smoking. Though it is not easy, more than half of all adult smokers have quit. We encourage you to write down all the reasons you should quit smoking and set a quit date for yourself. Ask us how we can help. You may also call 9-731-NUMCNOW for free resources and assistance.; Status:Complete; Done: 22Nov2022 Tobacco Use Screening; Status:Complete; Done: 22Nov2022 Patient Instructions Please bring all medicines, vitamins, and herbal supplements with you when you come to the office. Prescriptions will not be filled unless you are compliant with your follow up appointments or have a follow up appointment scheduled as per instruction of your physician. Refills should be requested at the time of your visit. obtain hematology notes patient to discuss ozempic with PCP Follow up after testing completed Chief Complaint PAIGE MCCARTY is being seen for dyspnea per dr. bright , chest pain. History of Present Illness 57-year-old is being seen in cardiology consultation at the request of Dr. Oberer regarding shortness of breath. Patient is accompanied by to the office. Patient has morbid obesity. She reports frequent bouts of bronchitis requiring ER visits. She has been short short of breath for years, however the symptoms are steadily progressive. Prior to 2021 she had to be evaluated in the emergency department at [facility] she is on multiple inhalers. She reports audible wheezing. She reports constant fatigue and sense of exhaustion. She has to wake up several times at night because of shortness of breath and cough. She reports that her feet get swollen. She denies chest pressure tightness heaviness, complains of diffuse arthritic pain. She reports history of blood clotting disorder, she gets clotting factors infused prior to any surgery. She follows up with hematology oncology. He is a chronic heavy smoker starting at age 18, says she has tried multiple times to quit smoking but ends up gaining 20 pounds. She is prediabetic. 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 Her other allergies were reviewed and includes latex. She has a history of hypertension. She is on medication for GERD. Her EKG today shows sinus rhythm at 86 bpm with TN interval of 170 ms QRS duration 96 ms QTc 461 ms and incomplete right bundle branch block. She has history of cholecystectomy hysterectomy for cancer. Her blood pressure is at target Her EKG was reviewed. Recent laboratory data was reviewed. Hemoglobin and hematocrit are 13.4 and 40 and platelet count 260, fasting glucose 108 BUN 15 creatinine 0.7 GFR greater than 60 sodium 136 potassium 4.3 liver enzymes normal Free T4 8.37 Which is normal, TSH is 1.91 and is normal. I do not see a lipid profile. Chest x-ray from 10/23/2022 was reported to be without infiltrates or effusions or cardiomegaly No family history of premature coronary artery disease. Assessment: 1. Progressively worsening exertional shortness of breath functional class III with bouts of orthopnea, the orthopnea is mostly due to coughing spells. 2. I suspect that her shortness of breath is related to her morbid obesity and underlying lung disease with ongoing nicotine addiction. 3. Given her risk factors and postmenopausal status, clearly cannot exclude anginal equivalent as etiology of shortness of breath but it is less likely 4. Morbid obesity, she has tried to quit smoking but says that she gains about 20 pounds every time she tries 5. Current functional capacity seems to be less than 4 METS 6. Evidence of peripheral vascular disease on examination in the left foot, decreased pulses without evidence of rest ischemia or clear-cut claudication or ulcers 7. Incomplete right bundle branch block 8. Chronic fatigue 9. 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 Normal [employer] Tobacco Screening.on 023 Adult depression screening assessment No -[facility] 250 DO Work Phone: Tobacco use status [facility] a) Yes -[facility] 250 DO Work Phone: Tobacco Screening. Yes [facility] 250 DO Work Phone: Albumin [Mass/volume] in Ser um or PlasmaOrdered By: Awais Bright on 10-23-2022 Albumin [Mass/Vol] 3.6 g/dL 3.2-5.5 [facility] Basic Metabolic Panelon 09-28 Calcium [Mass/Vol] 9.2309712 mg/dL Normal 8.2-10 .2 mg/dL [employer] Other CO2 [Moles/Vol] 24.42851371 mmol/L Normal 22.0-3 0.0 mmol/L [employer] Other Creatinine [Mass/Vol] 0.03343919 mg/dL Normal 0. 44-1.03 mg/dL [employer] Other Potassium [Moles/Vol] 4.12416763 mmol/L Normal 3 .5-5.1 mmol/L [employer] Other Basic Metabolic Panel > 60 [facility] [employer] Other Basophils Auto (Bld) [#/Vol] Ordered By: Awais Bright on 10-23-2022 Basophils (Bld) [#/Vol] 0.1 10*3/uL 0.0-0.2 [facility] Basophils/100 WBC Auto (Bld) Ordered By: Awais Bright on 10-23-2022 Basophils/100 WBC (Bld) 0.6 % . [facility] Complete Blood Count Auto Di ffon 10-23-2022 Basophils (Bld) [#/Vol] 0.217286487 10*3/uL Normal 0.0-0.2 10*3/uL [employer] Other Basophils/100 WBC (Bld) 0.600 % . % [employer] Other Eosinophils (Bld) [#/Vol] 0.864819495 10*3/uL Normal 0.0-0.45 10*3/uL [employer] Other Eosinophils/100 WBC (Bld) 1.600 % . % [employer] Other Erythrocyte distribution width (RBC) [Ratio] 13.900 % Normal 11.9-15.3 % [employer] Other Hematocrit (Bld) [Volume fraction] 40.100 % Normal 34.0-46.4 % [employer] Other Hemoglobin (Bld) [Mass/Vol] 13.976234 g/dL Normal 11.8-15.4 g/dL [employer] Other Lymphocytes (Bld) [#/Vol] 2.822070048 10*3/uL Normal 1.00-4.8 10*3/uL [employer] Other Lymphocytes/100 WBC (Bld) 25.400 % . % [employer] Other MCH (RBC) [Entitic mass] 29.2000 pg Normal 24.7-34.3 pg [employer] Other MCV (RBC) [Entitic vol] 87.1000 fL Normal 80-100 fL [employer] Other Monocytes (Bld) [#/Vol] 0.313670638 10*3/uL Normal 0.0-0.8 10*3/uL [employer] Other Monocytes/100 WBC (Bld) 4.500 % . % [employer] Other Neutrophils (Bld) [#/Vol] 5.576778809 10*3/uL Normal 1.8-7.7 10*3/uL [employer] Other Neutrophils/100 WBC (Bld) 67.900 % . % [employer] Other Platelet mean volume (Bld) [Entitic vol] 9.6000 fL Normal 6.3-10.7 fL [employer] Other WBC (Bld) [#/Vol] 8.585590576 10*3/uL Normal 3.8 -11.6 10*3/uL [employer] Other Complete Blood Count Auto Diff 8.6 10*3/uL Normal 3.8-11.6 10*3/uL [employer] Other Complete Blood Count Auto Diff 33.5 g/dL Normal 32.0-35.0 g/dL [employer] Other Complete Blood Count Auto Diff 0.1 /100{WBC} Normal 0-0.5 /100{WBC} [employer] Other Creatinine and Glomerular fi ltration rate.predicted panel (S/P/Bld)Ordered By: Awais Bright on 10-23-2022 Creatinine [Mass/Vol] 0.77 mg/dL 0.44-1.03 [facility] Direct bilirubin measurement Ordered By: Awais Bright on 10-23-2022 Bilirubin.direct [Mass/Vol] 0.1 mg/dL 0.0-0.4 [facility] Eosinophils Auto (Bld) [#/Vo l]Ordered By: Awais Bright on 10-23-2022 Eosinophils (Bld) [#/Vol] 0.1 10*3/uL 0.0-0.45 [facility] Eosinophils/100 WBC Auto (Bl d)Ordered By: Awais Bright on 10-23-2022 Eosinophils/100 WBC (Bld) 1.6 % . [facility] Erythrocyte distribution wid th Auto (RBC) [Ratio]Ordered By: Awais Bright on 10-23-2022 Erythrocyte distribution width (RBC) [Ratio] 13.9 % 11.9-15.3 [facility] Erythrocytes [#/volume] in B lood by Automated countOrdered By: Awais Bright on 10-23-2022 RBC (Bld) [#/Vol] 4.60 10*6/uL 3.60-5.00 [facility] Estimated glomerular filtrat ion rate (GFR) non- AmericanOrdered By: Awais Bright on 10-23-2022 GFR/1.73 sq M.predicted among non-blacks MDRD (S/P/Bld) [Vol rate/Area] > 60 mL/Min [facility] Globulin Calc (S) [Mass/Vol] Ordered By: Awais Bright on 10-23-2022 Globulin (S) [Mass/Vol] 3.2 g/dL [facility] Hematocrit Auto (Bld) [Volum e fraction]Ordered By: Awais Bright on 10-23-2022 Hematocrit (Bld) [Volume fraction] 40.1 % 34.0-46.4 [facility] Hemoglobin [Mass/volume] in BloodOrdered By: Awais Bright on 10-23-2022 Hemoglobin (Bld) [Mass/Vol] 13.4 g/dL 11.8-15.4 [facility] Hepatic Panelon 10-23-2022 Albumin [Mass/Vol] 3.787923 g/dL Normal 3.2-5.5 g/dL [employer] Other ALT [Catalytic activity/Vol] 24 U/L Normal 10-60 U/L [employer] Other Bilirubin [Mass/Vol] 0.8986345 mg/dL Normal 0.3- 1.2 mg/dL [employer] Other Bilirubin.indirect [Mass/Vol] 0.7363816 mg/dL Normal 0.0-0.4 mg/dL [employer] Other Protein [Mass/Vol] 6.385642 g/dL Normal 6.1-7.9 g/dL [employer] Other Hepatic Panel 0.4 mg/dL [employer] Other Hepatic Panel 3.2 g/dL [employer] Other Leukocytes [#/volume] correc margarita for nucleated erythrocytes in Blood by Automated counOrdered By: Awais Bright on 10-23-2022 WBC corrected for nucl RBC Auto (Bld) [#/Vol] 8.6 10*3/uL 3.8-11.6 [facility] Lymphocytes Auto (Bld) [#/Vo l]Ordered By: Awais Bright on 10-23-2022 Lymphocytes (Bld) [#/Vol] 2.2 10*3/uL 1.00-4.8 [facility] Lymphocytes/100 WBC Auto (Bl d)Ordered By: Awais Bright on 10-23-2022 Lymphocytes/100 WBC (Bld) 25.4 % . [facility] MCH Auto (RBC) [Entitic mass ]Ordered By: Awais Bright on 10-23-2022 MCH (RBC) [Entitic mass] 29.2 pg 24.7-34.3 [facility] MCHC Auto (RBC) [Mass/Vol]Or dered By: Awais Bright on 10-23-2022 MCHC (RBC) [Mass/Vol] 33.5 g/dL 32.0-35.0 [facility] MCV Auto (RBC) [Entitic vol] Ordered By: Awais Bright on 10-23-2022 MCV (RBC) [Entitic vol] 87.1 fL 80-100 [facility] Monocytes Auto (Bld) [#/Vol] Ordered By: Awais Bright on 10-23-2022 Monocytes (Bld) [#/Vol] 0.4 10*3/uL 0.0-0.8 [facility] Monocytes/100 WBC Auto (Bld) Ordered By: Awais Bright on 10-23-2022 Monocytes/100 WBC (Bld) 4.5 % . [facility] Neutrophils Auto (Bld) [#/Vo l]Ordered By: Awais Bright on 10-23-2022 Neutrophils (Bld) [#/Vol] 5.8 10*3/uL 1.8-7.7 [facility] Neutrophils/100 WBC Auto (Bl d)Ordered By: Awais Bright on 10-23-2022 Neutrophils/100 WBC (Bld) 67.9 % . [facility] No Panel InformationOrdered By: Awais Bright on 10-23-2022 Estimated GFR () > 60 mL/Min [facility] Comment on above: GFR estimated refere nce range: According to KDOQI guidelines, <60 ml/min/1.73m2 is sufficient to diagnose a patient with chronic kidney disease. Pharmacy Creatinine Clearance (Chem N/A [facility] Nucleated erythrocytes [Pres ence] in Blood by Automated countOrdered By: Awais Bright on 10-23-2022 Nucleated RBC Auto Ql (Bld) 0.1 /100{WBC} 0-0.5 [facility] Platelet mean volume Auto (B ld) [Entitic vol]Ordered By: Awais Bright on 10-23-2022 Platelet mean volume (Bld) [Entitic vol] 9.6 fL 6.3-10.7 [facility] Platelets [#/volume] in Bloo d by Automated countOrdered By: Awais Bright on 10-23-2022 Platelets (Bld) [#/Vol] 260 10*3/uL 150-450 [facility] Protein [Mass/volume] in Ser um or PlasmaOrdered By: Awais Bright on 10-23-2022 Protein [Mass/Vol] 6.8 g/dL 6.1-7.9 [facility] Serum or plasma alanine coelho otransferase measurement without P-5'-P (enzymatic activiOrdered By: Awais Bright on 10-23-2022 ALT No additional P-5'-P [Catalytic activity/Vol] 24 U/L 10-60 [facility] Serum or plasma albumin/glob ulin mass ratioOrdered By: Awais Bright on 10-23-2022 Albumin/Globulin [Mass ratio] 1.1 {ratio} [facility] Serum or plasma alkaline last sphatase measurement (enzymatic activity/volume)Ordered By: Awais Bright on 10-23-2022 ALP [Catalytic activity/Vol] 65 U/L 32-92 [facility] Serum or plasma anion gap de terminationOrdered By: Awais Bright on 10-23-2022 Anion gap [Moles/Vol] 11.7 mmol/L 6.0-15.0 [facility] Serum or plasma aspartate am inotransferase measurement (enzymatic activity/volume)Ordered By: Awais Bright on 10-23-2022 AST [Catalytic activity/Vol] 22 U/L 10-42 [facility] Serum or plasma calcium kurt urement (mass/volume)Ordered By: Awais Bright on 10-23-2022 Calcium [Mass/Vol] 9.6 mg/dL 8.2-10.2 [facility] Serum or plasma chloride ludivina surement (moles/volume)Ordered By: Awais Bright on 10-23-2022 Chloride [Moles/Vol] 104 mmol/L 95-114 [facility] Serum or plasma glucose kurt urement (mass/volume)Ordered By: Awais Bright on 10-23-2022 Glucose [Mass/Vol] 108 mg/dL 70-100 [facility] Comment on above: ADA recommended refe rence rangeRandom Glucose Reference Range is dependent on time and content of last meal. Glucose of more than 200 mg/dL in a nonstressed, ambulatory subject supports the diagnosis of Diabetes Mellitus. Serum or plasma non-glucuron idated bilirubin measurement (mass/volume)Ordered By: Awais Bright on 10-23-2022 Bilirubin.indirect [Mass/Vol] 0.4 mg/dL [facility] Serum or plasma potassium me asurement (moles/volume)Ordered By: Awais Bright on 10-23-2022 Potassium [Moles/Vol] 4.3 mmol/L 3.5-5.1 [facility] Serum or plasma sodium measu rement (moles/volume)Ordered By: Awais Bright on 10-23-2022 Sodium [Moles/Vol] 136 mmol/L 136-146 [facility] Serum or plasma thyroxine (T 4) measurement (mass/volume)Ordered By: Awais Bright on 10-23-2022 T4 [Mass/Vol] 8.37 ug/dL 5.39-11.82 [facility] Serum or plasma total biliru bin measurement (mass/volume)Ordered By: Awais Bright on 10-23-2022 Bilirubin [Mass/Vol] 0.5 mg/dL 0.3-1.2 [facility] Serum or plasma total carbon dioxide measurement (moles/volume)Ordered By: Awais Bright on 10-23-2022 CO2 [Moles/Vol] 24.6 mmol/L 22.0-30.0 [facility] Serum or plasma urea nitroge n measurement (mass/volume)Ordered By: Awais Bright on 10-23-2022 Urea nitrogen [Mass/Vol] 15 mg/dL 07-20 [facility] TSH DL <= 0.005 mIU/L QnOrde red By: Awais Bright on 10-23-2022 TSH Qn 1.91 m[IU]/L 0.45-5.33 [facility] Thyroid Stimulating Hormoneo n 10-23-2022 TSH Qn 1.44482849411 m[IU]/L Normal 0.45-5 .33 u[iU]/mL [employer] [facility] [employer] Other Thyroxine (T4) Totalon 10-23 Thyroxine (T4) Total 8.37 ug/dL Normal 5.39-11 .82 ug/dL [employer] Other WBC Auto (Bld) [#/Vol]Ordere d By: Awais Bright on 10-23-2022 WBC (Bld) [#/Vol] 8.6 10*3/uL 3.8-11.6 [facility] XR abdomen min 2Von 10-23-20 22 XR abdomen min 2V [facility] [employer] Other XR abdomen min 2V [facility] [address] [place] [employer] Other XR abdomen min 2V [address] [place] [address] [employer] Other [place]R [place] 2[place] [address] [employer] Other XR abdomen min 2V XRay Report [employer] Other XR abdomen min 2V Signed [facility] [employer] Other XR abdomen min 2V Patient: Paige Mccarty MR#: [id number] [employer] Other XR abdomen min 2V : 1965 Acct:[id number] [employer] Other XR abdomen min 2V Age/Sex: 57 / F ADM Date: 10/23/22 [employer] Other XR abdomen min 2V Loc: [facility] Room: Typ e: [facility] [employer] Other XR abdomen min 2V Attending Dr: Awais Bright DO [employer] Other XR abdomen min 2V Copies to: Awais Bright DO [employer] Other XR abdomen min 2V Ordering Provider: Deshawn Bright DO [employer] Other XR abdomen min 2V Date of Service: 10/23/22 [employer] Other XR abdomen min 2V XR/XR abdomen min 2V: Abdominal pain [employer] Other XR abdomen min 2V ([id number]) XR/XR chest 2V*: Dyspepsia [employer] Other XR abdomen min 2V Plain film chest2 view [employer] Other XR abdomen min 2V HISTORY:Shortness of breath. [employer] Other XR abdomen min 2V COMPARISON:None No rt [employer] Other XR abdomen min 2V FINDINGS: The cardia c, mediastinal and hilar silhouettes are within normal limits. No acute lung [employer] Other XR abdomen min 2V process, pleural effusion or pneumothorax identified. Bony structures are intact. [employer] Other XR abdomen min 2V X R/XR chest 2V* [employer] Other XR abdomen min 2V IMPRESSION: No acute process. . [employer] Other XR abdomen min 2V 2 views of abdomen [employer] Other XR abdomen min 2V HISTORY: Upper LEFT abdominal pain. [employer] Other XR abdomen min 2V RIGHT upper quadrant surgical clips present. No pneumoperitoneum. Moderate stool throughout the [employer] Other XR abdomen min 2V proximal mid colon. Tubal ligation clips present. No gaseous intestinal distention. Mild lumbar [employer] Other XR abdomen min 2V spondylosis. [employer] Other XR abdomen min 2V IMPRESSION: Nonspeci fic abdomen. A moderate stool. [employer] Other XR abdomen min 2V Impression dictated by: Bishnu Correia M.D.10/23/2022 4:03 PM [employer] Other XR abdomen min 2V Dictation Location: [place] [address] [employer] Other XR abdomen min 2V Transcribed By: JOE 10/23/22 1603 [employer] Other XR abdomen min 2V Dictated By: Bishnu Correia DO 10/23/22 1550 [employer] Other XR abdomen min 2V Signed By: [email or web address] Other XR abdomen min 2V 10/23/22 1607 [facility] [employer] Other Cholesterol [Mass/volume] in Serum or PlasmaOrdered By: Awais Bright on 10-17-2022 Cholesterol [Mass/Vol] 245 mg/dL 140-200 [facility] Comment on above: Chol less than 200 m g/dl low riskChol 201-239 mg/dl borderline riskChol 240 mg/dl and greater high risk Cholesterol in LDL Calc [Mas s/Vol]Ordered By: Awais Bright on 10-17-2022 Cholesterol in LDL [Mass/Vol] 145 mg/dL 0-100 [facility] Comment on above: LDL ATP III CLASSIFI CATIONLDL less than 100 mg/dL OptimalLDL 100-129 mg/dL Near or above optimalLDL 130-159 mg/dL Borderline highLDL 160-189 mg/dL HighLDL greater than 189 mg/dL Very high Cholesterol in VLDL Calc [Ma ss/Vol]Ordered By: Awais Bright on 10-17-2022 Cholesterol in VLDL [Mass/Vol] 40 mg/dL [facility] Glucose mean value [Mass/vol ume] in Blood Estimated from glycated hemoglobinOrdered By: Awais Bright on 10-17-2022 Average glucose Estimated from glycated hemoglobin (Bld) [Mass/Vol] 134 mg/dL [facility] Hemoglobin A1c percentageOrd ered By: Awais Bright on 10-17-2022 HbA1c (Bld) [Mass fraction] 6.3 % 4.3-5.6 [facility] Comment on above: Increased risk for d iabetes: 5.7 - 6.4diabetes: >6.4glycemic control for adults with diabetes: <7.0 Serum or plasma high density lipoprotein (HDL) cholesterol measurementOrdered By: Awais Bright on 10-17-2022 Cholesterol in HDL [Mass/Vol] 60 mg/dL 35-85 [facility] Comment on above: HDL CHOL ATP-III CLA SSIFICATION Cardiovascular RiskHDL > or equal to 60 mg/dL LOWHDL < 40 mg/dL HIGH Serum or plasma total choles terol/high density lipoprotein (HDL) cholesterol mass ratOrdered By: Awais Bright on 10-17-2022 Cholesterol.total/Cho lesterol in HDL [Mass ratio] 4.1 {ratio} <5.0 [facility] Triglyceride [Mass/volume] i n Serum or PlasmaOrdered By: Awais Bright on 10-17-2022 Triglyceride [Mass/Vol] 200 mg/dL 35-149 [facility] Comment on above: TRIG ATP III CLASSIF ICATIONTRIG less than 150 mg/dL NormalTRIG 150-199 mg/dL Borderline highTRIG 200-500 mg/dL High TRIG greater than 500 mg/dL Very highStandard traceable to the Center for Disease Conrtrol and Prevention (CDC) test method. XR CHEST 2 Von 09-24-2022 XR CHEST 2 V EXAMINATION: XR CHES T 2 V HISTORY: Shortness of breath COMPARISON: Chest x-ray 05/29/2021 TECHNIQUE: PA and lateral chest x-rays FINDINGS: The lung parenchyma is free of consolidation or infiltrate. No pneumothorax or pleural effusion. The cardiac, mediastinal and hilar contours are normal. The visualized osseous structures exhibit no gross abnormality. IMPRESSION: No acute cardiopulmonary abnormality. Electronically authenticated by: ROBBI CORREIA Date: 2022-09-24 15:28 Normal [facility] Vital Signs Date Time Vital Sign Value Performing Clinician Facility 02-10-2024 10:48-0400 Body height 158.1 cm Terese Braxton MD Work Phone: [facility] 02-10-2024 10:48-0400 Body mass index (BMI) [Ratio] 46.45 kg/m2 Terese Braxton MD Work Phone: [facility] 02-10-2024 10:48-0400 Body weight 116.12 kg Terese Braxton MD Work Phone: [facility] 02-10-2024 10:48-0400 Diastolic blood pressure 80 mm[Hg] Terese Braxton MD Work Phone: [facility] 02-10-2024 10:48-0400 Heart rate 80 /min Terese Braxton MD Work Phone: [facility] 02-10-2024 10:48-0400 Systolic blood pressure 128 mm[Hg] Terese Braxton MD Work Phone: [facility] 11-26-2023 08:47-0500 Body height 157.5 cm Yoli Cha PA-C Work Phone: [facility] [employer] [facility] 11-26-2023 08:47-0500 Body mass index (BMI) [Ratio] 53.37 kg/m2 Yoli Doughertya PA-C Work Phone: [facility] [employer] [facility] 11-26-2023 08:47-0500 Body weight 132.36 kg Yoli Choudharynga PA-C Work Phone: [facility] [employer] [facility] 11-26-2023 08:47-0500 Diastolic blood pressure 72 mm[Hg] Yoli Choudharynga PA-C Work Phone: [facility] [employer] 11-26-2023 08:47-0500 Heart rate 88 /min Yoli Choudharynga PA-C Work Phone: [facility] [employer] [facility] 11-26-2023 08:47-0500 SaO2% (BldA) [Mass fraction] 96 % Yoli Choudharynga PA-C Work Phone: [facility] [employer] [facility] 11-26-2023 08:47-0500 Systolic blood pressure 108 mm[Hg] Yoli Choudharynga PA-C Work Phone: [facility] [employer] [facility] 11-06-2023 12:41-0500 Body height 157.5 cm Metro 1 [facility] [employer] [facility] 11-06-2023 12:41-0500 Body mass index (BMI) [Ratio] 57.02 kg/m2 Metro 1 [facility] [employer] [facility] 11-06-2023 12:41-0500 Body temperature 98.01 [degF] Metro 1 [facility] 11-06-2023 12:41-0500 Body weight 141.4 kg Metro 1 [facility] [employer] [facility] 11-06-2023 12:41-0500 Diastolic blood pressure 74 mm[Hg] Metro 1 [facility] [employer] [facility] 11-06-2023 12:41-0500 Heart rate 78 /min Metro [address] [facility] 11-06-2023 12:41-0500 Respiratory rate 18 /min Metro 1 [facility] 11-06-2023 12:41-0500 SaO2% (BldA) [Mass fraction] 98 % Metro 1 [employer] 11-06-2023 12:41-0500 Systolic blood pressure 145 mm[Hg] Metro 1 [employer] 10-14-2023 09:45-0500 Body height 157.48 cm Awais Oberer Other [employer] Other 10-14-2023 09:45-0500 Body mass index (BMI) [Ratio] 56.05 kg/m2 Awais Oberer Other [employer] Other 10-14-2023 09:45-0500 Body temperature 98.1 [degF] Awais Oberer Other [employer] Other 10-14-2023 09:45-0500 Body weight 139.03 kg Awais Oberer Other [employer] Other 10-14-2023 09:45-0500 Diastolic blood pressure 71 mm[Hg] Awais Oberer Other [employer] Other 10-14-2023 09:45-0500 Respiratory rate 18 /min Awais Oberer Other [employer] Other 10-14-2023 09:45-0500 SaO2% (BldA) [Mass fraction] 94 % Awais Oberer Other [employer] Other 10-14-2023 09:45-0500 Systolic blood pressure 118 mm[Hg] Awais Oberer Other [employer] Other 08-01-2023 11:57-0400 Diastolic blood pressure 72 mm[Hg] Terese Braxton MD Work Phone: [facility] 08-01-2023 11:57-0400 Systolic blood pressure 136 mm[Hg] Terese Braxton MD Work Phone: [facility] 08-01-2023 11:02-0400 Body height 157.5 cm Terese Braxton MD Work Phone: [facility] 08-01-2023 11:02-0400 Body mass index (BMI) [Ratio] 56.33 kg/m2 Terese Braxton MD Work Phone: [facility] 08-01-2023 11:02-0400 Body weight 139.71 kg Terese Braxton MD Work Phone: [facility] 08-01-2023 11:02-0400 Heart rate 70 /min Terese Braxton MD Work Phone: [facility] 07-15-2023 11:07-0400 Diastolic blood pressure 80 mm[Hg] Awais L Oberer Work Phone: [facility] DO Work Phone: 07-15-2023 11:07-0400 Systolic blood pressure 152 mm[Hg] Awais L Oberer Work Phone: [facility] 250 DO Work Phone: 07-15-2023 10:14-0400 Body height 158.75 cm Awais L Oberer Work Phone: [facility] 250 DO Work Phone: 07-15-2023 10:14-0400 Body mass index (BMI) [Ratio] 54.72 kg/m2 Awais L Oberer Work Phone: [facility] 250 DO Work Phone: 07-15-2023 10:14-0400 Body surface area Derived from formula 2.3 m2 Awais L Oberer Work Phone: [facility] DO Work Phone: 07-15-2023 10:14-0400 Body weight 137.89 kg Awais L Oberer Work Phone: [facility] 250 DO Work Phone: 07-15-2023 10:14-0400 Diastolic blood pressure 102 mm[Hg] Awais L Oberer Work Phone: [facility] 250 DO Work Phone: 07-15-2023 10:14-0400 Heart rate 82 /min Awais L Oberer Work Phone: [facility] 250 DO Work Phone: 07-15-2023 10:14-0400 Systolic blood pressure 160 mm[Hg] Awais L Oberer Work Phone: [facility] 250 DO Work Phone: 05-27-2023 10:30-0400 Body height 157.48 cm Connoronesimo Jaquez Other [employer] Other 05-27-2023 10:30-0400 Body mass index (BMI) [Ratio] 55.63 kg/m2 Connoronesimo Jaquez Other [employer] Other 05-27-2023 10:30-0400 Body temperature 97.5 [degF] Holly Jaquez Other [employer] Other 05-27-2023 10:30-0400 Body weight 137.99 kg Holly Makenzieban Other [employer] Other 05-27-2023 10:30-0400 Diastolic blood pressure 90 mm[Hg] Holly Banegasban Other [employer] Other 05-27-2023 10:30-0400 Respiratory rate 20 /min Connoronesimo Banegasban Other [employer] Other 05-27-2023 10:30-0400 SaO2% (BldA) [Mass fraction] 95 % Holly Jaquez Other [employer] Other 05-27-2023 10:30-0400 Systolic blood pressure 132 mm[Hg] Holly Jaquez Other [employer] Other 04-23-2023 09:15-0400 Body height 157.48 cm Awais Oberer Other [employer] Other 04-23-2023 09:15-0400 Body mass index (BMI) [Ratio] 55.47 kg/m2 Awais Oberer Other [employer] Other 04-23-2023 09:15-0400 Body temperature 98.7 [degF] Awais Oberer Other [employer] Other 04-23-2023 09:15-0400 Body weight 137.58 kg Awais Oberer Other [employer] Other 04-23-2023 09:15-0400 Diastolic blood pressure 69 mm[Hg] Awais Oberer Other [employer] Other 04-23-2023 09:15-0400 Respiratory rate 18 /min Awais Oberer Other [employer] Other 04-23-2023 09:15-0400 SaO2% (BldA) [Mass fraction] 95 % Awais Oberer Other [employer] Other 04-23-2023 09:15-0400 Systolic blood pressure 111 mm[Hg] Awais Oberer Other [facility] [employer] Other 03-28-2023 14:07-0400 Body temperature 97.8 [degF] DO Awais Oberer Work Phone: [facility] 03-28-2023 14:07-0400 Body weight 139.47 kg DO Awais Oberer Work Phone: [facility] 03-28-2023 14:07-0400 Diastolic blood pressure 80 mm[Hg] DO Awais Oberer Work Phone: [facility] 03-28-2023 14:07-0400 Heart rate 16 /min DO Awais Oberer Work Phone: [facility] 03-28-2023 14:07-0400 Respiratory rate 16 /min DO Awais Oberer Work Phone: [facility] 03-28-2023 14:07-0400 SaO2% (BldA) [Mass fraction] 94 % DO Awais Oberer Work Phone: [facility] 03-28-2023 14:07-0400 Systolic blood pressure 133 mm[Hg] DO Awais Oberer Work Phone: [facility] 02-13-2023 12:30-0400 56 1 Awais L Oberer Work Phone: [facility] [address] [place] Work Phone: Comment on above: [id number] 01-21-2023 12:35-0400 Body height 158.12 cm Awais L Oberer Work Phone: [facility] 250 DO Work Phone: 01-21-2023 12:35-0400 Body mass index (BMI) [Ratio] 55.33 kg/m2 Awais L Oberer Work Phone: [facility] 250 DO Work Phone: 01-21-2023 12:35-0400 Body surface area Derived from formula 2.29 m2 Awais L Oberer Work Phone: [facility] DO Work Phone: 01-21-2023 12:35-0400 Body weight 138.35 kg Awais L Oberer Work Phone: [facility] 250 DO Work Phone: 01-21-2023 12:35-0400 Diastolic blood pressure 86 mm[Hg] Awais L Oberer Work Phone: [facility] 250 DO Work Phone: 01-21-2023 12:35-0400 Heart rate 80 /min Awais L Oberer Work Phone: [facility] DO Work Phone: 01-21-2023 12:35-0400 Systolic blood pressure 132 mm[Hg] Awais L Oberer Work Phone: [facility] [facility] DO Work Phone: 01-09-2023 14:30-0400 60 1 Awais L Oberer Work Phone: [facility] 250 DO Work Phone: Comment on above: [id number] 11-22-2022 11:47-0500 Body height 158.12 cm Awais L Oberer Work Phone: [facility] [facility] DO Work Phone: 11-22-2022 11:47-0500 Body mass index (BMI) [Ratio] 54.61 kg/m2 Awais L Oberer Work Phone: [facility] DO Work Phone: 11-22-2022 11:47-0500 Body surface area Derived from formula 2.28 m2 Awais L Oberer Work Phone: [facility] DO Work Phone: 11-22-2022 11:47-0500 Body weight 136.53 kg Awais L Oberer Work Phone: [facility] [facility] DO Work Phone: 11-22-2022 11:47-0500 Diastolic blood pressure 82 mm[Hg] Awais L Oberer Work Phone: [facility] DO Work Phone: 11-22-2022 11:47-0500 Diastolic blood pressure 72 mm[Hg] Awais L Oberer Work Phone: [facility] DO Work Phone: 11-22-2022 11:47-0500 Heart rate 86 /min Awais L Oberer Work Phone: [facility] DO Work Phone: 11-22-2022 11:47-0500 Systolic blood pressure 136 mm[Hg] Awais L Oberer Work Phone: [facility] [facility] DO Work Phone: 11-22-2022 11:47-0500 Systolic blood pressure 132 mm[Hg] Awais L Oberer Work Phone: [facility] [facility] DO Work Phone: 10-23-2022 14:15-0500 Body height 157.48 cm Awais Oberer Other [facility] [employer] Other 10-23-2022 14:15-0500 Body mass index (BMI) [Ratio] 56.78 kg/m2 Awais Oberer Other [facility] [employer] Other 10-23-2022 14:15-0500 Body temperature 98.2 [degF] Awais Oberer Other [employer] Other 10-23-2022 14:15-0500 Body weight 140.84 kg Awais Oberer Other [employer] Other 10-23-2022 14:15-0500 Diastolic blood pressure 76 mm[Hg] Awais Oberer Other [employer] Other 10-23-2022 14:15-0500 Respiratory rate 18 /min Awais Oberer Other [employer] Other 10-23-2022 14:15-0500 SaO2% (BldA) [Mass fraction] 97 % Awais Oberer Other [employer] Other 10-23-2022 14:15-0500 Systolic blood pressure 122 mm[Hg] Awais Oberer Other [employer] Other 01-18-2022 16:30-0400 Body height 157.48 cm Awais Oberer Other [employer] Other 01-18-2022 16:30-0400 Body mass index (BMI) [Ratio] 49.07 kg/m2 Awais Oberer Other [employer] Other 01-18-2022 16:30-0400 Body temperature 98.6 [degF] Awais Oberer Other [employer] Other 01-18-2022 16:30-0400 Body weight 121.7 kg Awais Oberer Other [employer] Other 01-18-2022 16:30-0400 Diastolic blood pressure 82 mm[Hg] Awais Oberer Other [employer] Other 01-18-2022 16:30-0400 Respiratory rate 18 /min Awais Oberer Other [employer] Other 01-18-2022 16:30-0400 SaO2% (BldA) [Mass fraction] 96 % Awais Oberer Other [employer] Other 01-18-2022 16:30-0400 Systolic blood pressure 111 mm[Hg] Awais Oberer Other [employer] Other 05-06-2018 14:11-0400 Body height 158.75 cm DO Awais Oberer Work Phone: [facility] Encounters Encounter Date Encounter Type Care Provider Facility Start: 02-18-2024 End: 02-18-2024 ambulatory [facility] Start: 02-10-2024 End: 02-10-2024 ambulatory [facility] Ambulatory Start: 02-10-2024 End: 02-10-2024 Office outpatient visit 25 minutes Terese Braxton MD Work Phone: [facility] Comment on above: S/P gastric bypass ( Primary Dx); Hypertensive heart disease without CHF; Hyperlipemia, mixed; Current every day smoker; Hypokalemia; Medication course changed; BMI 45.0-49.9, adult (Multi) Start: 12-23-2023 End: 12-23-2023 ambulatory JUANA BUSH [facility] Start: 12-16-2023 Telephone encounter Jaz corral RN Work Phone: [facility] Start: 11-26-2023 End: 11-26-2023 ambulatory [facility] Start: 11-26-2023 Encounter for other preprocedural examination [facility] Start: 11-26-2023 End: 11-26-2023 Postop follow up visit related to original px Yoli Cha PA-C Work Phone: [facility] Comment on above: History of Da-en-Y gastric bypass (Primary Dx); Postsurgical malabsorption; Malnutrition following gastrointestinal surgery; Vitamin D deficiency; Post-operative nausea and vomiting Start: 11-21-2023 End: 11-21-2023 Evaluation and management of inpatient JARROD Kincaid [facility] Start: 11-20-2023 End: 11-21-2023 Evaluation and management of inpatient LÓPEZ Freed [facility] Start: 11-19-2023 ambulatory Abena Henao Facility:[facility] Start: 11-13-2023 End: 11-14-2023 ambulatory [facility] Start: 11-13-2023 End: 11-13-2023 ambulatory [facility] Start: 11-06-2023 End: 11-06-2023 ambulatory [facility] Abdiaziz [facility] Start: 11-06-2023 End: 11-06-2023 Patient encounter procedure [facility] Provider 1 Zaheer Olivares [facility] Comment on above: Morbid obesity (CMS- HCC); Hypertension, unspecified type Start: 10-14-2023 End: 10-14-2023 ambulatory Awais Obmalissar Other [employer] Other Start: 10-14-2023 Office outpatient vi sit 40 minutes Awais Oberer [facility] Start: 10-14-2023 Telephone encounter Awais Oberedari [facility] Start: 08-01-2023 End: 08-01-2023 ambulatory [facility] Ambulatory Start: 08-01-2023 End: 08-01-2023 Office outpatient visit 15 minutes Terese Braxton MD Work Phone: [facility] Comment on above: Hypertensive heart d isease without CHF (Primary Dx); Encounter to discuss test results; SOB (shortness of breath); Hyperlipemia, mixed; Pre-diabetes; BMI 50.0-59.9, adult ([facility]); PVC (premature ventricular contraction); Current every day smoker Start: 07-25-2023 Chart Update Awais L Oberer Work Phone: [facility] 250 DO Work Phone: Start: 07-25-2023 End: 07-25-2023 ambulatory Terese Braxton Facility:[facility] Start: 07-25-2023 End: 07-25-2023 ambulatory DO Awais Oberer Work Phone: [facility] Work Phone: Start: 07-25-2023 End: 07-25-2023 Patient encounter procedure DO Awais Oberer Work Phone: [facility] Start: 07-23-2023 ambulatory Terese Braxton Facility:[id number] Start: 07-15-2023 Office outpatient vi sit 25 minutes Awais L Oberer Work Phone: [facility] 250 DO Work Phone: Start: 07-15-2023 Patient encounter procedure Ka rl L Oberer Work Phone: [facility] 250 DO Work Phone: Start: 07-15-2023 ambulatory Terese Braxton Facility:[id number] Start: 05-27-2023 End: 05-27-2023 ambulatory Holly Jaquez Other [employer] Other Start: 05-27-2023 Office outpatient ne w 45 minutes Holly Jaquez [facility] Start: 05-27-2023 Telephone encounter Holly Jaquez [facility] Start: 05-13-2023 End: 05-13-2023 ambulatory Awais Oberer Other [facility] [employer] Other Start: 05-13-2023 Telephone encounter Awais Oberer [facility] Start: 04-23-2023 Office outpatient vi sit 25 minutes Awais Oberer [facility] Start: 04-23-2023 Telephone encounter Awais Oberer [facility] Start: 04-23-2023 End: 04-23-2023 ambulatory Awais Oberer Facility:[facility] Start: 04-23-2023 End: 04-23-2023 ambulatory DO Awais Oberer Work Phone: [facility] Work Phone: Start: 04-23-2023 End: 04-23-2023 Patient encounter procedure DO Awais Oberer Work Phone: [facility] Start: 04-15-2023 End: 04-15-2023 ambulatory Awais Oberer Facility:[facility] Start: 04-15-2023 End: 04-15-2023 ambulatory DO Awais Oberer Work Phone: [facility] Work Phone: Start: 04-15-2023 End: 04-15-2023 Patient encounter procedure DO Awais Oberer Work Phone: [facility] [place] Work Phone: Start: 03-28-2023 End: 03-28-2023 ambulatory DO Awais Oberer Work Phone: [facility] Work Phone: Start: 03-28-2023 End: 03-28-2023 Registered Recurring DO Awais Oberer Work Phone: [facility] Work Phone: Start: 03-11-2023 End: 03-11-2023 ambulatory Cathy Covarrubias Other [employer] Other Start: 03-11-2023 Telephone encounter Cathy Covarrubias [facility] Start: 02-14-2023 Chart Update Awais L Oberer Work Phone: [facility] 250 DO Work Phone: Start: 02-14-[address] Terese Velasquez ty:[id number] Start: 02-13-[address] Terese Velasquez ty:[id number] Start: 02-13-2023 Patient encounter procedure Ka rl L Oberer Work Phone: [facility] [address] [place] Work Phone: Start: 01-26-2023 Chart Update Awais L Oberer Work Phone: [facility] 250 DO Work Phone: Start: 01-25-2023 End: 01-25-2023 ambulatory Terese Braxton Facility:[facility] Start: 01-25-2023 End: 01-25-2023 ambulatory DO Awais Oberer Work Phone: [facility] Work Phone: Start: 01-25-2023 End: 01-25-2023 Patient encounter procedure DO Awais Oberer Work Phone: [facility] Start: 01-21-2023 ambulatory Terese Braxton Facility:[id number] Start: 01-12-2023 Chart Update Awais L Oberer Work Phone: [facility] 250 DO Work Phone: Start: 01-09-[address] Terese Velasquez ty:[id number] Start: 01-09-2023 End: 01-09-2023 ambulatory Terese Braxton Facility:[facility] Start: 01-09-2023 End: 01-09-2023 ambulatory DO Awais Oberer Work Phone: [facility] Work Phone: Start: 01-09-2023 End: 01-09-2023 Patient encounter procedure DO Awais Oberer Work Phone: [facility] Start: 12-07-2022 End: 12-07-2022 ambulatory Terese Braxton Facility:[facility] Start: 12-07-2022 End: 12-07-2022 ambulatory DO Awais Oberer Work Phone: [facility] Work Phone: Start: 12-07-2022 End: 12-07-2022 Patient encounter procedure DO Awais Oberer Work Phone: [facility]Res[facility] Work Phone: Start: 11-23-2022 Telephone encounter Awais L Obe rer Work Phone: [facility] 250 DO Work Phone: Start: 11-22-2022 Office consultation new/estab patient 60 min Awais L Oberer Work Phone: [facility] Work Phone: Start: 11-22-2022 ambulatory Terese Braxton Facility:[id number] Start: 10-25-2022 End: 10-25-2022 ambulatory Awais Oberer Other [facility] [employer] Other Start: 10-25-2022 Telephone encounter Awais Oberer [facility] Start: 10-23-2022 End: 10-23-2022 Patient encounter procedure DO Awais Oberer Work Phone: [facility] Start: 10-23-2022 End: 10-23-2022 ambulatory DO Awais Oberer Work Phone: [facility] Work Phone: Start: 10-23-2022 Office outpatient vi sit 40 minutes Awais Oberer [facility] Start: 10-17-2022 End: 10-17-2022 ambulatory DO Awais Oberer Work Phone: [facility] Work Phone: Start: 10-17-2022 End: 10-17-2022 Patient encounter procedure DO Awias Oberer Work Phone: [facility] Start: 09-24-2022 End: 09-24-[address] DOCTOR BENTON Facility:H1 Start: 09-07-2022 End: 09-07-2022 ambulatory Awais Oberer Other [employer] Other Start: 09-07-2022 Telephone encounter [facility]be[facility] Start: 02-08-2022 End: 02-08-2022 ambulatory Awais Oberer Other [employer] Other Start: 02-08-2022 Telephone encounter Awais Oberer [facility] Start: 01-29-2022 End: 01-29-2022 ambulatory Awais Oberer Other [employer] Other Start: 01-29-2022 Telephone encounter Awais Oberer [facility] Start: 01-18-2022 End: 01-18-2022 ambulatory Awais Oberer Other [employer] Other Start: 01-18-2022 Office outpatient vi sit 40 minutes Awais Oberer [facility] Procedures Date Procedure Procedure Detail Performing Clinician Start: 02-18-2024 Follow-up visit Follow-up LEONIDES FULLER Start: 02-10-2024 FOLLOW UP IN CARDIOLOGY TERESE BRAXTON Start: 11-26-2023 History of gastrointestinal tract bypass History of Da-en-Y gastric bypass Yoli Cha PA-C Work Phone: Start: 11-20-2023 Adult depression scr eening assessment Yoli Cha PA-C Work Phone: Start: 11-06-2023 Comprehensive metabo lic panel López Kidd MD Work Phone: Start: 11-06-2023 Ecg routine ecg w/le ast 12 lds trcg only w/o i&r López Kidd MD Work Phone: Start: 04-23-2023 Plain X-ray of right elbow DO Awais Oberer Work Phone: Start: 01-09-2023 Echocardiography Awais L Oberer Work Phone: Start: 10-23-2022 Plain chest X-ray DO Ka rl Oberer Work Phone: Start: 10-23-2022 Plain X-ray abdomen DO Awais Oberer Work Phone: section Awais L Tremayne er Work Phone: Cholecystectomy Awais L Obere r Work Phone: Excision of cyst Awais L Tremayne er Work Phone: History of gastrointestinal tract bypass History of Da-en-Y gastric bypass Jaz Marx RN Work Phone: Hysterectomy Awais L Oberer Work Phone: Ligation of fallopian tube K arl L Oberer Work Phone: Operation on bladder Awais L Oberer Work Phone: NEGATED: Highlighted row has not occurred! Total colonoscopy Awais L Oberer Work Phone: Plan of Treatment Date Care Activity Detail Author Start: 2027 RSV patient s and/or patients aged 60+ years (1 - 1-dose 60+ series) RSV patients and/or patients aged 60+ years (1 - 1-dose 60+ series) [facility] Start: 12-23-2025 DTaP,Tdap and Td Vaccines (3 - Td or Tdap) DTaP,Tdap and Td Vaccines (3 - Td or Tdap) [facility] [employer] [facility] Start: 12-23-2025 DTaP/Tdap/Td Vaccine s (3 - Td or Tdap) DTaP/Tdap/Td Vaccines (3 - Td or Tdap) [facility] Start: 11-26-2024 Adult BMI Follow Up Plan Adult BMI F ollow Up Plan [facility] Start: 11-26-2024 Adult BMI Screening Adult BMI Screen ing [facility] Start: 11-26-2024 Tobacco Screening Tobacco Screening [facility] Start: 11-20-2024 Depression Screening Depression Scre ening [facility] Start: 11-06-2024 Adult BMI Screening Adult BMI Screen ing [facility] Start: 11-06-2024 Tobacco Screening Tobacco Screening [facility] Start: 08-13-2024 End: 08-13-2024 Patient encounter procedure 08/13/2024 10:30 AM EDT Office Visit [address] [place] [address] Terese Braxton MD [address] [place] [address] [address] [place], [place] [phone] [facility] Start: 06-28-2024 Influenza vaccination Influenz a Vaccine (Season Ended) [facility] Start: 02-26-2024 Adult BMI Follow Up Plan Adult BMI F ollow Up Plan [facility] Start: 02-18-2024 End: 02-18-2024 Patient encounter procedure [facility] Start: 02-17-2024 End: 02-09-2025 Basic metabolic 2000 panel - Serum or Plasma Basic Metabolic Panel Lab Routine Hypertensive heart disease without CHF Hypokalemia Medication course changed Expected: 02/17/2024 (Approximate), Expires: 02/09/2025 [facility] Service Area Work Phone: Comment on above: Expected: 02/17/2024 (Approximate), Expires: 02/09/2025 Start: 02-10-2024 End: 02-10-2024 Patient encounter procedure 02/10/2024 10:30 AM EDT Office Visit [address] [place] [address] Terese Braxton MD [address] [place] [address] [address] [place] [phone] [facility] Start: 02-03-2024 End: 11-22-2024 CBC W Auto Differential panel - Blood CBC auto differential Lab Routine 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 History of Da-en-Y gastric bypass Expected: 02/03/2024 (Approximate), Expires: 11/22/2024 [employer] Work Phone: Comment on above: Expected: 02/03/2024 (Approximate), Expires: 11/22/2024 Start: 02-03-2024 End: 11-22-2024 Cyanocobalamin vitamin b-12 Vitamin B12 Lab Routine 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 History of Da-en-Y gastric bypass Expected: 02/03/2024 (Approximate), Expires: 11/22/2024 [employer] Comment on above: Expected: 02/03/2024 (Approximate), Expires: 11/22/2024 Start: 02-03-2024 End: 11-22-2024 Folate Folate Lab Routine 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 History of Da-en-Y gastric bypass Expected: 02/03/2024 (Approximate), Expires: 11/22/2024 [facility] Comment on above: Expected: 02/03/2024 (Approximate), Expires: 11/22/2024 Start: 02-03-2024 End: 11-22-2024 Iron [Mass/volume] in Serum or Plasma Iron Lab Routine 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 History of Da-en-Y gastric bypass Expected: 02/03/2024 (Approximate), Expires: 11/22/2024 [facility] Comment on above: Expected: 02/03/2024 (Approximate), Expires: 11/22/2024 Start: 02-03-2024 End: 11-22-2024 Liver panel Liver panel Lab Routine 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 Comment on above: Expected: 02/03/2024 (Approximate), Expires: 11/22/2024 Start: 12-23-2023 End: 12-23-2023 ambulatory 12/23/2023 1:00 PM EST Support Visit [facility] [address] [place] [phone] Juana Bush LD [facility] Start: 11-26-2023 End: 11-26-2023 Patient encounter procedure 11/26/2023 8:30 AM EST [facility] [address] [place] [phone] Yoli Cha PA-C [address] [place] [phone] [facility] Start: 11-26-2023 End: 11-26-2023 ambulatory 11/26/2023 8:00 AM EST Support Visit [facility] [address] [place] [phone] Melissa Muro RD [facility] Start: 11-20-2023 End: 11-20-2023 Admission to same day surgery center 11/20/2023 9:30 AM EST - 11/20/2023 11:30 AM EST Surgery [address] [phone] López Kidd MD [address] [facility] [address] [place] [address] [facility]PASS GASTR[facility] DA EN Y [12234 (CPT )] [facility] Comment on above: DAVINCI BYPASS GASTR IC DA EN Y [72020 (CPT )] Start: 11-20-2023 End: 11-20-2023 Laps gstr rstcv px w/byp da-en-y limb <150 cm [facility]IN[facility] BYPASS GASTR[facility] DA EN Y MORBID OBESITY, HYPERTENSION 11/20/2023 9:30 AM EST [facility] Start: 11-20-2023 Subsequent hospital visit by physician 11/20/2023 9:30 AM EST Hospital Encounter [address] [phone] López Kidd MD [address] [facility] [address] [place] [address] [facility] Start: 11-13-2023 End: 11-13-2023 Admission to same day surgery center 11/13/2023 8:00 AM EST Support Visit [facility] [address] [place] [phone] [facility] Start: 08-01-2023 End: 08-01-2024 Comprehensive metabolic 2000 panel - Serum or Plasma Comprehensive metabolic panel Lab Routine Hypertensive heart disease without CHF SOB (shortness of breath) Hyperlipemia, mixed Pre-diabetes BMI 50.0-59.9, adult (CMS/HCC) PVC (premature ventricular contraction) Current every day smoker Expected: 08/01/2023 (Approximate), Expires: 08/01/2024 [facility] Service Area Work Phone: Comment on above: Expected: 08/01/2023 (Approximate), Expires: 08/01/2024 Start: 08-01-2023 End: 08-01-2024 Hemoglobin A1c/Hemoglobin.total in Blood Hemoglobin A1C Lab Routine Hypertensive heart disease without CHF SOB (shortness of breath) Hyperlipemia, mixed Pre-diabetes BMI 50.0-59.9, adult (CMS/HCC) PVC (premature ventricular contraction) Current every day smoker Expected: 08/01/2023 (Approximate), Expires: 08/01/2024 [facility] Work Phone: Comment on above: Expected: 08/01/2023 (Approximate), Expires: 08/01/2024 Start: 08-01-2023 End: 08-01-2024 Lipid 1996 panel - Serum or Plasma Lipid Panel Lab Routine Hypertensive heart disease without CHF SOB (shortness of breath) Hyperlipemia, mixed Pre-diabetes BMI 50.0-59.9, adult (CMS/HCC) PVC (premature ventricular contraction) Current every day smoker Expected: 08/01/2023 (Approximate), Expires: 08/01/2024 [facility] Work Phone: Comment on above: Expected: 08/01/2023 (Approximate), Expires: 08/01/2024 Start: 07-23-2023 HOLTER 48, Provider: WESTON [employer]IL[employer]AS TRAWL [employer] MAKER 1,[id number], Status: Pen, Time: 10:00 AM HOLTER 48, Provider: WESTON [employer]KER 1,[id number], Status: Pen, Time: 10:00 AM [facility] 250 DO Work Phone: Start: 07-15-2023 FUV, Provider: Terese Braxton, Status: Pen, Time: 10:30 AM FUV, Provider: Terese Braxton, Status: Pen, Time: 10:30 AM [facility] 250 DO Work Phone: Start: 06-28-2023 COVID-19 Vaccine (2022- season) COVID-19 Vaccine (2022-24 season) [facility] Start: 06-28-2023 Influenza vaccination [facility] Start: 02-14-2023 REST ONLY, Provider: MELVINA HHVI NUCLEAR 01,[id number], Status: Pen, Time: 12:30 PM REST ONLY, Provider: MELVINA HHVI NUCLEAR 01,[id number], Status: Pen, Time: 12:30 PM -[facility] 250 DO Work Phone: Start: 02-13-2023 STRESSNUC2, Provider : MELVINA HHVI NUCLEAR 01,[id number], Status: Pen, Time: 12:30 PM STRESSNUC2, Provider: MELVINA HHVI NUCLEAR 01,[id number], Status: Pen, Time: 12:30 PM -[facility] 250 DO Work Phone: Start: 01-21-2023 FUV, Provider: Terese Braxton, Status: Pen, Time: 12:30 PM FUV, Provider: Terese Braxton, Status: Pen, Time: 12:30 PM -[facility] 250 DO Work Phone: Start: 01-09-2023 ECHO, Provider: AME GABRIEL HHVI ULTRASOUND 01,[id number], Status: Pen, Time: 2:30 PM ECHO, Provider: MELVINA HHVI ULTRASOUND 01,[id number], Status: Pen, Time: 2:30 PM -[facility] 250 DO Work Phone: Start: 2017 Administration of varicella zoster vaccine Zoster (Shingles) Vaccine (1 of 2) [facility] Start: 2017 Zoster Vaccines (1 of 2) Zoster Vacc ken (1 of 2) [facility] Start: 01-20-2016 Hepatitis B Vaccines (2 of 3 - 19+ 3-dose series) Hepatitis B Vaccines (2 of 3 - 19+ 3-dose series) [facility] Start: 2007 Screening for malign ant neoplasm of breast Mammogram [facility] Start: 1988 Screening for malign ant neoplasm of cervix [facility] Start: 1985 Diabetes mellitus screening Diabetes Screening [facility] Start: 1985 Hepatitis C screening Hepatitis C Sc [place] [facility] Start: 1979 Depression Screening Depression Scre [facility] Start: 1973 Pneumococcal Vaccine : Pediatrics (0 to 5 Years) and At-Risk Patients (6 to 64 Years) (1 - PCV) Pneumococcal Vaccine: Pediatrics (0 to 5 Years) and At-Risk Patients (6 to 64 Years) (1 - PCV) [facility] Start: 1973 Pneumococcal Vaccine : Pediatrics (0 to 5 Years) and At-Risk Patients (6 to 64 Years) (1 of 2 - PCV) Pneumococcal Vaccine: Pediatrics (0 to 5 Years) and At-Risk Patients (6 to 64 Years) (1 of 2 - PCV) [facility] Start: 1968 MMR Vaccines (1 of 1 - Standard series) MMR Vaccines (1 of 1 - Standard series) [facility] Start: 1967 COVID-19 Vaccine (#1) COVID-19 Vacci ne (#1) [facility] Start: 1967 HIV screening HIV Screening [facility] Start: 1967 Lipid panel Lipid Panel [facility] Start: 1967 Screening for malign ant neoplasm of colon [facility] Start: 1967 Yearly Adult Physical Yearly Adult P hysical [facility] Thiamine [Mass/volum e] in Blood Thiamin Vitamin B1, whole blood Lab Routine Morbid obesity (CMS-HCC) Hypertension, unspecified type 11/06/2023 1:20 PM EST [facility] Work Phone: Thiamine [Moles/volu me] in Blood [facility] Immunizations Immunization Date Immunization Notes Care Provider Juany nguyen 12-23-2015 hepatitis B vaccine, adult dosage Awais Bright Other [employer] Other 12-23-2015 influenza, seasonal, injectable Awais Bright Work Phone: [facility] 250 DO Work Phone: 12-23-2015 tetanus toxoid, reduced diphtheria toxoid, and acellular pertussis vaccine, adsorbed Awais L Oberer Work Phone: [facility] DO Work Phone: 12-23-2015 influenza virus vaccine, unspecified formulation Terese Braxton MD Work Phone: [facility] Work Phone: 06-23-2014 tetanus toxoid, reduced diphtheria toxoid, and acellular pertussis vaccine, adsorbed Awais Oberer Other [employer] Other 06-25-1994 influenza, seasonal, injectable Awais Oberer Other [employer] Other NEGATED: Highlighted row has not occurred!01-18-2022 influenza, seasonal, injectable Awais Oberer Other [employer] Other NEGATED: Highlighted row has not occurred!12-30-2020 influenza, seasonal, injectable Patient Objection Awais Oberer Other [employer] Other NEGATED: Highlighted row has not occurred!09-20-2020 influenza, seasonal, injectable Patient Objection Awais Oberer Other [employer] Other NEGATED: Highlighted row has not occurred!08-06-2019 influenza, seasonal, injectable Patient Objection Awais Oberer Other [employer] Other Payers Date Payer Category Payer Medicaid [facility] O [id number] 2023-Present [phone] [address] [place] [address] [id number] 2022 Self-pay [id number] 2021 Medicaid [id number] 2021 Unknown 1967 Unknown [id number] 2.16.840.1.058520.3.579.2.593 1967 Unknown [id number] 2.16.840.1.101298.3.579.2.1068 1967 Unknown [id number] 2.16.840.1.413111.3.579.2.1068 1967 Unknown [id number] 2.16.840.1.661564.3.579.2.1068 1967 Unknown [id number] 2.16.840.1.212315.3.579.2.1068 1967 Unknown [id number] 2.16.840.1.036324.3.579.2.356 1967 Unknown [id number] 2.16.840.1.186483.3.579.2.356 1967 Unknown [id number] 2.16.840.1.318554.3.579.2.356 1967 Unknown [id number] 2.16.840.1.217226.3.579.2.356 1967 Unknown [id number] 2.16.840.1.698472.3.579.2.1244 1967 Unknown [id number] 2.16.840.1.123490.3.579.2.1244 1967 Unknown [id number] 2.16.840.1.348741.3.579.2.1286 1967 Unknown [id number] 2.16.840.1.899758.3.579.2.1286 1967 Unknown [id number] 2.16.840.1.115202.3.579.2.1285 1967 Unknown [id number] 2.16.840.1.513738.3.579.2.1285 1967 Unknown [id number] 2.16.840.1.669764.3.579.2.1285 1967 Unknown [id number] 2.16.840.1.563801.3.579.2.1285 1967 Unknown [id number] 2.16.840.1.419827.3.579.2.1285 1967 Unknown [id number] 2.16.840.1.835066.3.579.2.1285 1967 Unknown [id number] 2.16.840.1.529250.3.579.2.1285 1967 Unknown [id number] 2.16840.1.740258.3.579.2.128 1959 Unknown [id number] 2.16.840.1.886840.19 Unknown [id number] 2.16.840.1.226389.3.579.2.531 Unknown [id number] 2.16.840.1.771299.3.579.2.531 Unknown [id number] 2.16.840.1.009195.3.579.2.531 Unknown [id number] 2.16.840.1.874830.3.579.2.531 Unknown [id number] 2.16.840.1.396391.3.579.2.531 Unknown [id number] 2.16840.1.100239.3.579.2.531 Unknown [id number] 2.16840.1.099753.3.579.2.531 Social History Date Type Detail Facility Unknown if ever smoked [employer] Other Start: 08-01-2023 End: 02-10-2024 Sex Assigned At [facility] [employer] Other Start: 01-30-2021 End: 10-28-2022 Tobacco smoking status NHIS Smoker (finding) [facility] Start: 1965 Sex Assigned At Female F [facility] Start: 08-01-2023 End: 02-10-2024 No illicit drug use No illicit drug use -[facility] 250 DO Work Phone: Comment on above: 1 PPD; 1-5 CIGGS DAILY; Start: 08-01-2023 [facility] Work Phone: End: 10-28-2022 History of tobacco use Cigarette Smoker [facility] Work Phone: Start: 08-01-2023 Tobacco use and exposure Former smokeless tobacco user [facility] Work Phone: Start: 08-01-2023 End: 11-06-2023 Alcohol intake Current drinker of alcohol (finding) [facility] Work Phone: Start: 08-01-2023 Tobacco Comment vape [facility] Work Phone: Start: 02-07-2023 End: 08-01-2023 Alcohol Comment social [facility] Work Phone: Start: 1965 Sex Assigned At Not on file [facility] Work Phone: Start: 07-22-2023 End: 02-10-2024 Exposure to SARS-CoV-2 (event) Not sure [facility] Start: 11-06-2023 [facility] Start: 11-06-2023 Tobacco use and exposure Smokeless tobacco non-user [facility] Housing Instability Unknown [facility] Start: 11-26-2023 End: 02-10-2024 Alcohol intake Ex-drinker (finding) [facility] How often to you hav e a drink containing alcohol? Monthly or less [facility] How many standard drinks containing alcohol do you have on a typical day? 1 or 2 [facility] How often do you hav e 6 or more drinks on 1 occasion? Never [facility] Start: 02-10-2024 Gender identity Identifies as female gender (misty) [facility] Work Phone: Start: 02-10-2024 Sexual orientation Heterosexual (codey samson) [facility] Work Phone: Clinical Notes 10-28-2008 to 02-10-2024 Terese Braxton MD - 02/10/2024 10:30 AM EDTPatient InstructionsTelephone Encounter - Jaz Marx RN - 12/16/2023 12:03 PM ESTTelephone Encounter - Jaz Marx RN - 12/16/2023 12:03 PM EST Note Date & Type Note Facility 02-10-2024 History of Present illness Narrative Last office visit July 2023. Since then underwent robotic Da-en-Y gastric bypass surgery October 2023. Subjective : Doing well, weight 308 pounds in July 2023, today she weighs 256 pounds. BMI has decreased from 56.3-46.45. She tolerated surgery well, and is pleased with her weight loss. History so Far : 1. Progressively worsening exertional shortness of breath functional class III with bouts of orthopnea, the orthopnea is mostly due to coughing spells. 2. I suspect that her shortness of breath is related to her morbid obesity and underlying lung disease with ongoing nicotine addiction. 3. Given her risk factors and postmenopausal status, clearly cannot exclude anginal equivalent as etiology of shortness of breath but it is less likely 4. Morbid obesity, she has tried to quit smoking but says that she gains about 20 pounds every time she tries 5. Current functional capacity seems to be less than 4 METS 6. Evidence of peripheral vascular disease on examination in the left foot, decreased pulses without evidence of rest ischemia or clear-cut claudication or ulcers 7. Incomplete right bundle branch block 8. Chronic fatigue 9. 48-hour Holter monitor June 2023-sinus rhythm throughout with isolated ventricular premature beats predominantly Monoformed. 10. 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 Status postcholecystectomy and hysterectomy 12. No prior history of DVT or pulmonary embolism 13. Left upper quadrant tenderness to deep palpation, significance unclear, defer to primary 14. Hypertension-essential, at target 15. Hyperlipidemia-I was able to subsequently review lab data from Dr. Bright's office, in September 2022 total cholesterol 245 HDL 60 triglycerides 200 LDL 145 16. Hyperglycemia,? Diabetes, hemoglobin A1c 10/17/2022 6.3 17. Pulmonary function testing November 2022-there is a suggestion of restriction on spirometry but this is not confirmed on measurement of static lung volumes, with a normal total lung capacity which is also without evidence of significant air trapping diffusion capacity is low normal and improves further after adjustment for alveolar volume, which could suggest some component of ventilation/perfusion mismatch. 18. Echocardiogram December 2022-LVEF 60% impaired relaxation pattern of LV diastolic filling left atrial diameter 2.9 cm peak and mean gradients across aortic valve 11 and 5 respectively trace tricuspid regurgitation no pericardial effusion normal-sized aortic root LV end-systolic diameter 3.5 cm 19. 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 20. BNP level 16 January 2023 21. Lexiscan Myoview January 2023-normal, LVEF 56%, transient ischemic dilatation 1.11 significant breast attenuation artifact noted 22. Echocardiogram December 2022-LVEF 60%, normal chamber dimensions, impaired relaxation pattern of LV diastolic filling, no pericardial effusion, trace tricuspid regurgitation, LV end-systolic diameter 3.5 cm, PA pressure not estimated because there was no tricuspid regurgitation. 23. 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 Wt Readings from Last 3 Encounters: 02/10/24 116 kg (256 lb) 08/01/23 140 kg (308 lb) 01/21/23 138 kg (305 lb) Visit Vitals BP 128/80 (BP Location: Right arm, Patient Position: Sitting) Pulse 80 Ht 1.581 m (5' 2.25 ) Wt 116 kg (256 lb) BMI 46.45 kg/m Smoking Status Every Day BSA 2.26 m Physical Exam: GENERAL APPEARANCE: in no acute distress. CHEST: Symmetric and non-tender. INTEGUMENT: Skin warm and dry HEENT: No gross abnormalities identified.No pallor or scleral icterus. NECK: Supple, no JVD, no bruit. NEURO/PSHCY: Alert and oriented x3; appropriate behavior and responses and responses LUNGS: Clear to auscultation bilaterally; normal respiratory effort. HEART: Rate and rhythm regular with no evident murmur; no gallop appreciated. ABDOMEN: Soft, non tender. MUSCULOSKELETAL: No gross deformities. EXTREMITIES: Warm There is no edema noted. Meds: Current Outpatient Medications Medication Instructions acetaminophen (Tylenol) 500 mg tablet 1 tablet, oral, Every 4-6 hours as needed
albuterol 5 mg/mL nebulizer solution nebulization, Use 0.5 ml in 2-3 ml of saline every 4-6 hours as needed for cough and wheeze
albuterol 90 mcg/actuation inhaler 1-2 puffs, inhalation, 4-6 hours as needed calcium citrate-vitamin D3 (Citracal+D) 315 mg-5 mcg (200 unit) tablet 1 tablet, oral, Once Weekly cholecalciferol (VITAMIN D-3) 50,000 Units, oral, Once Weekly diclofenac sodium (Voltaren) 1 % gel gel Topical, Apply sparingly to affected area once daily fluticasone (Flonase) 50 mcg/actuation nasal spray 1 spray, Each Nostril, Daily, Shake gently. Before first use, prime pump. After use, clean tip and replace cap. fluticasone (Flovent Diskus) 100 mcg/actuation diskus inhaler 1 puff, inhalation, 2 times daily RT, Rinse mouth with water after use to reduce aftertaste and incidence of candidiasis. Do not swallow. hydroCHLOROthiazide (HYDRODIURIL) 50 mg, oral, As needed, As needed lisinopril 40 mg, oral, Daily magnesium oxide (MAG-OX) 400 mg, oral, Daily montelukast (SINGULAIR) 10 mg, oral, Daily omeprazole (PRILOSEC) 40 mg, oral, Daily, Do not crush or chew. [id number] fumarate-FA () 28-800 mg-mcg tablet rosuvastatin (CRESTOR) 20 mg, oral, Daily Allergies Allergen Reactions Aspirin Unknown Bee Venom Protein (Honey Bee) Swelling Nsaids (Non-Steroidal Anti-Inflammatory Drug) Unknown Zoloft [Sertraline] Confusion Gabapentin Drowsiness Latex Rash Ultram [Tramadol] Hives Ceftin [Cefuroxime Axetil] Rash LABS: Reviewed laboratory data from January 2024-hemoglobin 13.1 hematocrit 41 platelets 2 31,000 creatinine 0.77 GFR greater than 60 potassium 3.1, sodium 144, albumin 3.2 liver enzymes normal total cholesterol 146 triglycerides 193 LDL 64 HDL 44 B12 668 vitamin D level 45 Patient Active Problem List Diagnosis Date Noted Hypokalemia 02/10/2024 Encounter to discuss test results 08/01/2023 Pre-diabetes 08/01/2023 PVC (premature ventricular contraction) 08/01/2023 Abnormal ECG 07/31/2023 Clotting disorder (Multi) 07/31/2023 Disturbance, sleep 07/31/2023 Fatigue 07/31/2023 Hypertensive heart disease without CHF 07/31/2023 Hyperlipemia, mixed 07/31/2023 BMI 45.0-49.9, adult (Multi) 07/31/2023 SOB (shortness of breath) 07/31/2023 Palpitations 07/31/2023 Current every day smoker 07/31/2023 Assessment: 1. Hypertensive heart disease without CHF Follow Up In Cardiology 2. Hyperlipemia, mixed 3. BMI 45.0-49.9, adult (Multi) 4. Current every day smoker 5. Hypokalemia 6. Medication course changed Clinical decision making: As patient continues to lose weight, medications can be down titrated. In view of her hypokalemia, we will add Aldactone 25 mg daily and check basic metabolic profile in 1 week. She is encouraged to increase intake of potassium. Follow up : 6 months Provider Attestation - Scribe documentation All medical record entries made by the Scribe were at my direction and personally dictated by me. I have reviewed the chart and agree that the record accurately reflects my personal performance of the history, physical exam, discussion and plan. Scribe Attestation By signing my name below, IKristyn LPN, Scribvincent attest that this documentation has been prepared under the direction and in the presence of Terese Braxton MD. documented in this encounter [facility] Work Phone: 02-10-2024 Instructions Melquiades Ahmadi MA - 02/10/2024 10:30 AM EDT Please bring all medicines, vitamins, and herbal supplements with you when you come to the office. Prescriptions will not be filled unless you are compliant with your follow up appointments or have a follow up appointment scheduled as per instruction of your physician. Refills should be requested at the time of your visit. documented in this encounter [facility] Work Phone: 12-16-2023 Miscellaneous Notes Patient needed new RX for vitamins due to having surgery 10/2023. Patient states insurance will pay for vitamins now that she has had surgery. New RX entered. documented in this encounter [facility] 12-16-2023 Telephone encounter Note Patient needed new RX for vitamins due to having surgery 10/2023. Patient states insurance will pay for vitamins now that she has had surgery. New RX entered. [facility] 11-26-2023 History of Present illness Narrative Summary: One week s/p RYBG, [place], Dr. Kidd Images from the original note were not included. [facility] [address] [place] [id number] Subjective Patient ID: Paige Mccarty is a 58 y.o. female who is an established patient. HPI: Paige is here for her one week post-op visit after robotic Da-en-Y gastric bypass with Dr. Kidd on 11/20/23. She is compliant with the postoperative diet, eating 1-2 protein drinks daily. She has also tolerated chicken broth. However, most days she is drinking only 17-34 oz of water. She will try to increase this amount. She has been sleeping a lot and woke up last night feeling dizzy. Her BP was 101/71 and HR 95 at the time. + mild occasional heartburn - she is taking omeprazole 40mg BID as prescribed by her PCP preop. + emesis - she has figured out that this is occurring when she drinks too much protein drink at a time. She is trying to pay more attention to her portion sizes and drink more slowly. + constipation, first BM was POD #3, has Colace at home if needed. No diarrhea. Good urine output. Incisional pain controlled with Tylenol. No incisional drainage, redness or tenderness. No dysphagia. No fever, chills, SOB, chest pain, leg pain or swelling. For exercise, she walks on the treadmill and belongs to a gym. She does not use EtOH or nicotine/tobacco products. She does not use NSAIDS. The following portions of the patient's history were reviewed and updated as appropriate: allergies, current medications, past family history, past medical history, past social history, past surgical history, problem list, and medication reconciliation was completed including current medication and post discharge medication. Weight and Comorbid Conditions: 1. Morbid Obesity Orting body weight: 137 lb BMI 25.0 Personal Goal: 175-200 lb Pre op: 306 lb BMI 55.97 1 week post op: 291 lb BMI 53.37 2. HTN - continues on lisinopril and HCTZ 3. HLD - continues on rosuvastatin 4. GERD - continues on omeprazole 40mg BID 5. 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 Negative for chills, diaphoresis and fever. HENT: Negative for trouble swallowing. Respiratory: Negative for choking and shortness of breath. Cardiovascular: Negative for chest pain and leg swelling. Gastrointestinal: Positive for constipation. Negative for abdominal distention, abdominal pain, diarrhea, nausea and vomiting. Genitourinary: Negative for decreased urine volume and difficulty urinating. Skin: Positive for wound (Incisions healing well). Negative for rash. Neurological: Positive for dizziness (one episode). Objective Lab Review: Vit D, 25-Hydroxy Date Value Ref Range Status 11/06/2023 26.4 (L) 30 - 100 ng/mL Final Comment: Vitamin D status 25 OH Vitamin D Deficiency <20 ng/mL Insufficiency 20-29 ng/mL Sufficiency 30-100 ng/mL Toxicity >100 ng/mL NOTE: A pediatric reference range has not been established by the machine plate stacker of this kit. The [place] [employer] recommends a Vitamin D level of = or >20ng/mL in infants and children. Vitamin B-12 Date Value Ref Range Status 11/06/2023 737 180 - 914 pg/mL Final Hematocrit Date Value Ref Range Status 11/21/2023 38.1 35 - 47 % Final Hemoglobin Date Value Ref Range Status 11/21/2023 12.8 11.7 - 15.5 g/dL Final Thiamine Date Value Ref Range Status 11/06/2023 See Below Final Comment: NOTE TEST RESULT FLAG UNIT REF.RANGE ---- Vitamin B1 (TDP), Whole Blood 203.0 nmol/L 84.3-213.3 This assay measures the concentration of thiamine diphosphate (TDP), the primary active form of vitamin B1. Approximately 90 percent of vitamin B1 present in whole blood is TDP. Thiamine and thiamine monophosphate, which comprise the remaining 10 percent, are not measured. This test was developed and its performance characteristics determined by [facility] [place] ([facility] [place]). It has not been cleared or approved by the FDA. [facility] is regulated under CLIA as qualified to perform high-complexity testing. This test is used for clinical purposes. It should not be regarded as investigational or for research. Test Performed By: [place] [address] Medical Office Manager: Alfredo Chu III, M.D. CLIA #[id number]^ Vitals and Bariatric Vitals: Vitals: 11/26/23 0847 BP: 108/72 BP Site: Left Forearm BP Postition: Sitting BP CUFF SIZE: M (9-13 inches) Pulse: 88 SpO2: 96% Weight: 132.4 kg (291 lb 12.8 oz) Height: 157.5 cm (5' 2 ) # Days Post Op: (1 week) Weight: 132.4 kg (291 lb 12.8 oz) BMI: 53.37 Decrease in BMI: 2.6 Weight Lost (kg): 6.44 Weight Lost (lbs): 14.2 % Decreased BMI: 4.65 % Decreased Excess Weight: 8.4 Physical Exam Vitals reviewed. Constitutional: General: She is not in acute distress. Appearance: Normal appearance. She is obese. She is not ill-appearing, toxic-appearing or diaphoretic. HENT: Head: Normocephalic and atraumatic. Mouth/Throat: Mouth: Mucous membranes are moist. Cardiovascular: Rate and Rhythm: Normal rate and regular rhythm. Heart sounds: Normal heart sounds. Pulmonary: Effort: Pulmonary effort is normal. No respiratory distress. Breath sounds: Normal breath sounds. No stridor. No wheezing, rhonchi or rales. Abdominal: General: Bowel sounds are normal. There is no distension. Palpations: Abdomen is soft. There is no mass. Tenderness: There is no abdominal tenderness. There is no guarding or rebound. Hernia: No hernia is present. Comments: Surgical incisions healing well. Approx 4x6 area of old ecchymosis surrounding far left lateral incision. No active bleeding or drainage. No erythema Musculoskeletal: Right lower leg: No edema. Left lower leg: No edema. Skin: General: Skin is warm and dry. Coloration: Skin is not jaundiced or pale. Findings: No erythema or rash. Neurological: Mental Status: She is alert and oriented to person, place, and time. Psychiatric: Mood and Affect: Mood normal. Behavior: Behavior normal. Thought Content: Thought content normal. Assesment and Plan: Assessment/Plan Paige was seen today for post-op. Diagnoses and all orders for this visit: History of Da-en-Y gastric bypass - CBC auto differential; Future - Folate; Future - Iron; Future - Liver panel; Future - Thiamin Vitamin B1, whole blood; Future - Vitamin B12; Future - Vitamin D 25 hydroxy; Future Postsurgical malabsorption - CBC auto differential; Future - Folate; Future - Iron; Future - Liver panel; Future - Thiamin Vitamin B1, whole blood; Future - Vitamin B12; Future - Vitamin D 25 hydroxy; Future Malnutrition following gastrointestinal surgery - CBC auto differential; Future - Folate; Future - Iron; Future - Liver panel; Future - Thiamin Vitamin B1, whole blood; Future - Vitamin B12; Future - Vitamin D 25 hydroxy; Future Vitamin D deficiency - cholecalciferol, vitamin D3, 50,000 units tablet; Take 1 tablet (50,000 Units total) by mouth once a week. Post-operative nausea and vomiting - ondansetron (ZOFRAN) 4 mg tablet; Take 1 tablet (4 mg total) by mouth every 6 (six) hours as needed for nausea or vomiting (post op nausea). One week s/p robotic RYGB, down 14.2 lbs (8.4% EBWL) Follow diet progression according to the binder Increase fluid intake. Goal is at least 64oz/day of water. Gradually increase exercise. Goal = 150 minutes per week Start vitamin or bariatric MVT now Start calcium and B12 at 6 week appointment Stop hydrochlorothiazide. Check blood pressure at home and contact housekeeper manager or PCP regarding dosing of lisinopril. Labs reviewed with patient. Vitamin D deficiency - supplement and recheck in 3 months Lifelong avoidance of all NSAIDs and tobacco products to reduce risk of anastomotic ulcer formation. Continue PNV or MVT, calcium and vitamin B12 for life Follow up with exercise instruct at 6 weeks postop Follow up labs at 3 months, draw labs one week before appointment Follow up with [employer] OPERATIONS MANAGER/PA at 3 months Yoli Cha PA-C 11/26/23 1101 documented in this encounter [facility] 11-26-2023 Instructions Yoli Cha PA-C - 11/26/2023 8:30 AM EST One week s/p robotic RYGB, down 14.2 lbs (8.4% EBWL) Follow diet progression according to the binder Increase fluid intake. Goal is at least 64oz/day of water. Gradually increase exercise. Goal = 150 minutes per week Start vitamin or bariatric MVT now Start calcium and B12 at 6 week appointment Vitamin D deficiency - take prescription and recheck in 3 months Lifelong avoidance of all NSAIDs and tobacco products to reduce risk of stomach pouch ulcer formation. Stop hydrochlorothiazide. Continue lisinopril. Check blood pressure a couple times daily and anytime you feel dizzy. Contact housekeeper manager or PCP regarding dosing of blood pressure medication. Continue PNV or MVT, calcium and vitamin B12 for life Follow up with exercise instruct at 6 weeks postop Follow up labs at 3 months, draw labs one week before appointment Follow up with SP[employer] OPERATIONS MANAGER/PA at 3 months [facility] History and physical note PRE-ADMISSION TESTING HISTORY AND PHYSICAL EXAM DATE: 11/06/23 PCP: Awais Bright DO HISTORY OF PRESENT ILLNESS: Paige Mccarty, a 58 y.o. White or female, presents to [facility] for a pre-surgical H&P. The patient has been diagnosed with MORBID OBESITY, HYPERTENSION . Patient has struggled with her weight her entire life. Patient states that there is a family history of obesity and her brother had bariatric surgery previously. Patient states she is tried working out in a gym, cutting out sugar and carbs without significant sustained weight loss. She is currently walking by use of a treadmill. Patient states her family is supportive in her decision to undergo bariatric surgery. Anesthesia problems: PONV Latex allergy: denies. Bleeding/ clotting disorders: denies. Recent hospitalizations: denies. 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 No pertinent family history. SOCIAL HISTORY: The patient reports current alcohol use. She reports that she quit smoking about a year ago. Her smoking use included cigarettes. She smoked an average of 1 pack per day. She has never used smokeless tobacco. She reports no history of drug use. ALLERGIES: Allergies Allergen Reactions Nsaids (Non-Steroidal Anti-Inflammatory Drug) Other (See Comments) Gran Pool Def. Other Other (See Comments) Rash from silk tape/bandaids Ultram [Tramadol] Hives Ceftin [Cefuroxime Axetil] Rash Gabapentin Other (See Comments) sleepy Prozac [Fluoxetine] Other (See Comments) Caused mood issues to worsen MEDICATIONS: Current Outpatient Medications: acetaminophen (TYLENOL EXTRA STRENGTH) 500 mg tablet, Take 2 tablets (1,000 mg total) by mouth in the morning and 2 tablets (1,000 mg total) before bedtime., Disp: , Rfl: albuterol (PROVENTIL,VENTOLIN) 2.5 mg /3 mL (0.083 %) nebulizer solution, INHALE 3 (THREE) mL (1 (ONE) vial) VIA NEBULIZER NEEDED FOR WHEEZING EVERY 4 HOURS, Disp: , Rfl: diclofenac sodium (VOLTAREN) 1 % gel, APPLY TO THE AFFECTED AREA(S) THREE TIMES DAILY NEEDED, Disp: , Rfl: hydroCHLOROthiazide (HYDRODIURIL) 50 mg tablet, Take 1 tablet (50 mg total) by mouth daily., Disp: , Rfl: lisinopriL (PRINIVIL,ZESTRIL) 40 mg tablet, Take 1 tablet (40 mg total) by mouth in the morning., Disp: , Rfl: montelukast (SINGULAIR) 10 mg tablet, Take 1 tablet (10 mg total) by mouth nightly., Disp: , Rfl: omeprazole (PriLOSEC) 40 mg capsule, TAKE 1 CAPSULE BY MOUTH TWICE DAILY 30 MINUTES BEFORE MEALS NEEDED WITH one dose being before morning meal, Disp: , Rfl: vit 10-iron fum-folic 65-1 mg tablet, Take 1 tablet by mouth in the morning., Disp: 90 tablet, Rfl: 3 rosuvastatin (CRESTOR) 40 mg tablet, Take 0.5 tablets (20 mg total) by mouth nightly., Disp: , Rfl: VENTOLIN HFA 90 mcg/actuation inhaler, INHALE 2 PUFFS BY MOUTH NEEDED FOR WHEEZING EVERY 4 HOURS, Disp: , Rfl: fluticasone propionate (FLOVENT HFA) 220 mcg/actuation inhaler, Inhale 1 puff in the morning and 1 puff before bedtime., Disp: , Rfl: REVIEW OF SYSTEMS: Review of Systems Constitutional: Negative. HENT: Negative. Sinus infection- on Amoxicillin for 10 days Eyes: Negative. Respiratory: Positive for apnea and shortness of breath (with exertion). Cardiovascular: Negative for chest pain, palpitations and tachycardia. Hypertension, hyperlipidemia Gastrointestinal: Morbid obesity Endocrine: Negative. Genitourinary: Uterine cancer Musculoskeletal: Positive for back pain. Fibromyalgia Skin: Negative. Allergic/Immunologic: Negative. Neurological: Negative. 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 HENT: Head: Normocephalic and atraumatic. Nose: Nose normal. Mouth/Throat: Mouth: Mucous membranes are moist. Pharynx: Oropharynx is clear. Eyes: Extraocular Movements: Extraocular movements intact. Conjunctiva/sclera: Conjunctivae normal. Pupils: Pupils are equal, round, and reactive to light. Cardiovascular: Rate and Rhythm: Normal rate and regular rhythm. Heart sounds: Normal heart sounds. Pulmonary: Effort: Pulmonary effort is normal. Breath sounds: Normal breath sounds. Abdominal: General: Bowel sounds are normal. Palpations: Abdomen is soft. Comments: Morbid obesity Musculoskeletal: General: Normal range of motion. Cervical back: Normal range of motion and neck supple. Skin: General: Skin is warm. Neurological: General: No focal deficit present. Mental Status: She is alert and oriented to person, place, and time. RECENT LABS: No results found for: WBC , HGB , HCT , PLT , INR , PTT , SODIUM , K , CL , CO2 , CALCIUM , MAGNESIUM , ALKPHOS , ALBUMIN , GLU , HGBA1C , ALT , AST , CREATININE , BUN , GFR , EGFR , TSH , PSA *Please note that labs listed above are the most recent lab values available in [facility] at the time of the office visit and additional labs may have been drawn since that time. ASSESSMENT / DIAGNOSIS: MORBID OBESITY, HYPERTENSION PLAN: Paige Mccarty is scheduled for Davinci Bypass Gastric Da En Y on 11/20/[address] Kidd. DELMAR Harden 11/06/23 1503 [email or web address] Work Phone: 11-06-2023 History and physical note PRE-ADMISSION TESTING HISTORY AND PHYSICAL EXAM DATE: 11/06/23 PCP: Awais Bright DO HISTORY OF PRESENT ILLNESS: Paige Mccarty, a 58 y.o. White or female, presents to [facility] for a pre-surgical H&P. The patient has been diagnosed with MORBID OBESITY, HYPERTENSION . Patient has struggled with her weight her entire life. Patient states that there is a family history of obesity and her brother had bariatric surgery previously. Patient states she is tried working out in a gym, cutting out sugar and carbs without significant sustained weight loss. She is currently walking by use of a treadmill. Patient states her family is supportive in her decision to undergo bariatric surgery. Anesthesia problems: PONV Latex allergy: denies. Bleeding/ clotting disorders: denies. Recent hospitalizations: denies. 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 No pertinent family history. SOCIAL HISTORY: The patient reports current alcohol use. She reports that she quit smoking about a year ago. Her smoking use included cigarettes. She smoked an average of 1 pack per day. She has never used smokeless tobacco. She reports no history of drug use. ALLERGIES: Allergies Allergen Reactions Nsaids (Non-Steroidal Anti-Inflammatory Drug) Other (See Comments) Gran Pool Def. Other Other (See Comments) Rash from silk tape/bandaids Ultram [Tramadol] Hives Ceftin [Cefuroxime Axetil] Rash Gabapentin Other (See Comments) sleepy Prozac [Fluoxetine] Other (See Comments) Caused mood issues to worsen MEDICATIONS: Current Outpatient Medications: acetaminophen (TYLENOL EXTRA STRENGTH) 500 mg tablet, Take 2 tablets (1,000 mg total) by mouth in the morning and 2 tablets (1,000 mg total) before bedtime., Disp: , Rfl: albuterol (PROVENTIL,VENTOLIN) 2.5 mg /3 mL (0.083 %) nebulizer solution, INHALE 3 (THREE) mL (1 (ONE) vial) VIA NEBULIZER NEEDED FOR WHEEZING EVERY 4 HOURS, Disp: , Rfl: diclofenac sodium (VOLTAREN) 1 % gel, APPLY TO THE AFFECTED AREA(S) THREE TIMES DAILY NEEDED, Disp: , Rfl: hydroCHLOROthiazide (HYDRODIURIL) 50 mg tablet, Take 1 tablet (50 mg total) by mouth daily., Disp: , Rfl: lisinopriL (PRINIVIL,ZESTRIL) 40 mg tablet, Take 1 tablet (40 mg total) by mouth in the morning., Disp: , Rfl: montelukast (SINGULAIR) 10 mg tablet, Take 1 tablet (10 mg total) by mouth nightly., Disp: , Rfl: omeprazole (PriLOSEC) 40 mg capsule, TAKE 1 CAPSULE BY MOUTH TWICE DAILY 30 MINUTES BEFORE MEALS NEEDED WITH one dose being before morning meal, Disp: , Rfl: vit 10-iron fum-folic 65-1 mg tablet, Take 1 tablet by mouth in the morning., Disp: 90 tablet, Rfl: 3 rosuvastatin (CRESTOR) 40 mg tablet, Take 0.5 tablets (20 mg total) by mouth nightly., Disp: , Rfl: VENTOLIN HFA 90 mcg/actuation inhaler, INHALE 2 PUFFS BY MOUTH NEEDED FOR WHEEZING EVERY 4 HOURS, Disp: , Rfl: fluticasone propionate (FLOVENT HFA) 220 mcg/actuation inhaler, Inhale 1 puff in the morning and 1 puff before bedtime., Disp: , Rfl: REVIEW OF SYSTEMS: Review of Systems Constitutional: Negative. HENT: Negative. Sinus infection- on Amoxicillin for 10 days Eyes: Negative. Respiratory: Positive for apnea and shortness of breath (with exertion). Cardiovascular: Negative for chest pain, palpitations and tachycardia. Hypertension, hyperlipidemia Gastrointestinal: Morbid obesity Endocrine: Negative. Genitourinary: Uterine cancer Musculoskeletal: Positive for back pain. Fibromyalgia Skin: Negative. Allergic/Immunologic: Negative. Neurological: Negative. 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 HENT: Head: Normocephalic and atraumatic. Nose: Nose normal. Mouth/Throat: Mouth: Mucous membranes are moist. Pharynx: Oropharynx is clear. Eyes: Extraocular Movements: Extraocular movements intact. Conjunctiva/sclera: Conjunctivae normal. Pupils: Pupils are equal, round, and reactive to light. Cardiovascular: Rate and Rhythm: Normal rate and regular rhythm. Heart sounds: Normal heart sounds. Pulmonary: Effort: Pulmonary effort is normal. Breath sounds: Normal breath sounds. Abdominal: General: Bowel sounds are normal. Palpations: Abdomen is soft. Comments: Morbid obesity Musculoskeletal: General: Normal range of motion. Cervical back: Normal range of motion and neck supple. Skin: General: Skin is warm. Neurological: General: No focal deficit present. Mental Status: She is alert and oriented to person, place, and time. RECENT LABS: No results found for: WBC , HGB , HCT , PLT , INR , PTT , SODIUM , K , CL , CO2 , CALCIUM , MAGNESIUM , ALKPHOS , ALBUMIN , GLU , HGBA1C , ALT , AST , CREATININE , BUN , GFR , EGFR , TSH , PSA *Please note that labs listed above are the most recent lab values available in [facility] at the time of the office visit and additional labs may have been drawn since that time. ASSESSMENT / DIAGNOSIS: MORBID OBESITY, HYPERTENSION PLAN: Paige Mccarty is scheduled for Davinci Bypass Gastric Da En Y on 11/20/[address] Kidd. DELMAR Harden 11/06/23 1503 documented in this encounter [facility] 11-06-2023 Instructions Adrianne Peoples RN - 11/06/2023 12:15 PM EST Bathing Before Surgery- Patients greater than 2 months of age You can help to lower your chance of infection at the site of your surgery by showering or bathing with a special soap called chlorhexidine gluconate (CHG). Germs live on your skin. This special soap will help lower the amount of germs so they do not get into your surgery site. Special points to know: Do not use this soap if you know that you are allergic to CHG. Shower or bathe with CHG the night before and the morning of surgery. Do not shave the area of your body where the surgery will be done within 7 days of surgery. The CHG may make your skin a little dry, but do not use lotion. Steps for Bathing: Wash your hair as usual with your normal shampoo. Rinse your hair and body well after you shampoo to get rid all of the shampoo. Wash gently with the CHG from the neck down, but do not scrub the skin to hard. Be sure to wash the area of your surgery very well. If showering, turn the water off while washing and then turn the water back onto rinse. Do not get CHG in the genital (private) area. Do not get CHG in the eyes, ears, nose or mouth. (If the soap gets into the eyes, flush them immediately with water). Do not wash with regular soap after CHG is used. Pat skin dry with a soft, clean towel. Patient should sleep in freshly laundered night clothes and report for surgery in clean clothes. Your surgery/procedure is scheduled at [facility] on 11-20-2023 at 9:30am Arrival Time 7:30am [facility] Address: [address] [place] [address] Park in [address] Parking lot located on [facility]. Report to the Entrance B. Check in at the information desk the surgery. The waiting room located on the second floor. If you have any questions prior to surgery, please call Pre-Admission Clinic at [phone] between 7:30 am and 4:30 pm Saturday through Saturday. If you have questions the morning of surgery, please call the Pre-op Department at [phone]. PLEASE FOLLOW THESE INSTRUCTIONS OR YOUR SURGERY MAY BE CANCELLED/ MEDICATION INSTRUCTIONS Take the following medications the morning of surgery with a sip of water: Lisinopril, Omeprazole Notify your surgeon if you develop any illness such as a cold, cough, fever, sore throat or vomiting between now and your surgery. Your Surgeon wants you in the best possible health for your surgery. Take inhalers as prescribed the morning of surgery. STOP TAKING UNLESS OTHERWISE DIRECTED BY YOUR SURGEON Blood thinners: Medications such as Coumadin, Heparin, aspirin, Plavix, and non-steroidal anti-inflammatory drugs (NSAIDS) affect the body's blood clotting capabilities. These medications are usually stopped 3-7 days prior to surgery. Please contact your physician regarding a stop date for these medications. Diabetics: If you take insulin, contact your prescribing doctor for instructions on how to manage this the night before and the morning of surgery. Weight loss medications: Stop all weight loss medications at least 2 weeks prior to surgery. Vitamins: Stop taking all vitamins, supplements, and herbal products, including herbal tea, 1 week before your surgery. Some vitamins and herbal products may not react well with the medicine used to put you to sleep and/or may thin the blood. Marijuana: Stop marijuana 72 hours prior to surgery, stop CBD oil 48 hours prior to surgery. If you have been given bowel prep instructions by your surgeon, please call the surgeon's office with any questions about these instructions. What do I do the day of Surgery? Age 2 through adult - Stop all solids by midnight, You may have clear liquids up to 2 hours before surgery, unless otherwise instructed by your surgeon. Clear liquids are: water, sports drinks such as Gatorade or G2, or apple juice. You may NOT have: tube feedings, dairy products, alcoholic beverages, orange juice, or any liquids with solids or pulp in it. If applicable, shower again with CHG soap the morning of your surgery. If you received a green plastic bracelet, bring it with you the day of surgery and your nurse will put it on you. In order to help prevent infection post-operatively, you may be asked to use a CHG mouthwash when you arrive to the Pre-op area. Your nurse will provide instruction the morning of. What do I need to do to prepare for surgery? If you will be going home the same day as your surgery, arrange for an adult over [address] Riding in a bus or taxi by yourself is not permitted. You should not smoke or drink alcohol 24 hours before your surgery. Alcohol thins the blood and may cause bleeding problems during surgery. Smoking increases the risk of breathing problems after surgery. If you have been assigned JASON Education by your surgeon's office, please complete this education prior to your surgery. For questions regarding JASON education, reach out to your surgeon's office. If you have been given a prescription for occupational, physical or speech therapy, please set up these appointments before your procedure. If you would like to schedule therapy at a [facility] facility, please call [phone] ([phone]). Do not use lotions, creams, powders, perfume, make up, cologne or after-shaves day of surgery. Remove ALL jewelry including wedding rings, body piercings,hair extensions that contain metal, nail nepali, make-up, and contact lens. You may brush your teeth the morning of surgery, but do not swallow the water. Wear your dentures and partial plates to the hospital (no adhesive). Shower the night the before. If applicable, use the CHG (chlorhexidine gluconate) soap or wipes What should I bring to the hospital? If you received a green plastic bracelet, bring it with you the day of surgery and your nurse will put it on you. Eyeglass or contact lens case If you will be spending the night, please bring personal care items and leave them in the car until you are taken to your room after surgery. Leave ALL valuables at home. If any of these instructions conflict with those you received from the surgeon, please seek clarification from your surgeon's office. DEEP BREATHING EXERCISES This exercise helps promote good air exchange and helps to prevent pneumonia after surgery. Breathe in slowly and deeply through the nose. Hold your breath for a few seconds and then exhale slowly through the mouth. Repeat this three times and then cough.Coughing helps to clear your lungs. If you have had a surgery with an incision into your abdomen or chest, press gently against your incision with a pillow or a folded blanket when you cough. Please be aware - it may not be modi to cough following some types of surgeries involving the eyes, ears, sinuses and throat. Always follow your doctor's instructions. LEG EXERCISE These exercises help promote good circulation and help to prevent blood clots after surgery. Point your toes to the ceiling and then point them to the wall. Do this slowly about 15-20 times. You may also move your feet in circles. Do the exercise that is most comfortable for you. If you have had surgery involving your shoulder or arm, we recommend you move your fingers. PRACTICING We ask that you begin practicing these exercises before your surgery. After surgery try to do both exercises at least every 2 hours during the day and early evening. SURGICAL SITE INFECTION PREVENTION What is a Surgical Site Infection? Infection can happen to the area of the body where surgery is done. This is called a surgical site infection (SSI). A SSI does not happen very often. Can SSIs be treated? Antibiotics are used to treat SSI. Some patients may need another surgery to treat the infection. The doctor will discuss treatment options with you. What are some of the things that hospitals are doing to prevent SSIs? Soap and water or alcohol hand rub are used before and after caring for each patient. Special soap is used to clean surgery workers hands and arms just before the surgery. Masks, gowns, gloves and hair covers are worn during the surgery to keep the area clean. Hair in the surgery area may be removed with clippers (not razors). A special soap that kills germs is used to clean the skin at the surgery site. Antibiotics may be given before the surgery starts. What can you do to prevent SSIs? Before surgery: You may be asked to shower or bathe with a special soap that kills germs the night before and the day of surgery. Use the soap as you were told. If you smoke, stop or cut down. Ask your doctor about ways to quit. Do not shave near where you will have surgery. Shaving can irritate the skin and make it easier to get and infection. After surgery: Be sure that the doctors and nurses clean their hands before and after touching you. Be sure your family and friends clean their hands before and after visiting you. Do not be afraid to remind them. * Care for your wound at home as told by your doctor or nurse * Call your doctor right away if you have fever, redness, increased pain, or drainage at the surgery site. Further questions? Contact the doctor, nurse or the Infection Prevention and Control department if you have any questions. PATIENT RIGHTS AND RESPONSIBILITIES As a patient at [facility], you have the right to: Receive medical care and be informed of who is taking care of you Be treated with dignity and respect Have a family member/claims service representative of choice and your physician notified of your admission Receive information and actively participate in decisions about your care and treatment Refuse care, treatment and services Decide who may provide your support and speak for you Access christian and spiritual services Participate in ethical issues and questions about your care Receive private and confidential care Have appropriate assessment and management of your pain Know guest visitation restrictions or limitations Have an advance directive Access protective services Consent or refuse to participate in research studies or production or recordings, films or other images Have resolution of your complaints Receive information of hospital charges and payment methods Patient/patient claims service representative responsibilities are to: Provide information about health status to facilitate care, treatment and services Follow the treatment, plan, keep appointments and speak up when you do not understand the plan Respect the rights of other patients and healthcare personnel Follow organizational rules and regulations that support quality care and a safe environment Fulfill financial obligations as promptly as possible documented in this encounter [facility] 10-14-2023 Evaluation note Encounter Date Diagnosis Assessment Notes Sep, Mixed hyperlipidemia (ICD-10 - E78.2) [employer] Other 12-18-2023 Evaluation note* Encounter Date Diagnosis Assessment Notes Treatment Notes Treatment Clinical Notes Sep, Acute non-recurrent sinusitis, unspecified location (ICD-10 - J01.90) Clinically I think she likely has sinusitis. Discussed could be viral. However, because she is traveling over the holidays and also has bariatric surgery pending, I decided to cover her with amoxicillin., Sinusitis home care material was published Sep, Dry mouth (ICD-10 - R68.2) She is a mouth breather I think largely related to her nasal congestion. However, she is using only electric portable heaters in her house and I suspect her dry mouth that she wakes up with is aggravated by winter dry air. I recommended using a vaporizer/humidifie r in the bedroom., Dry mouth material was published Sep, History of candidias is of vagina (ICD-10 - Z86.19) Because of her history of antibiotic induced yeast infections, I prescribed p.o. Diflucan Sep, Generalized OA (ICD- 10 - M15.9) Stable likely optimal baseline. Hopefully her bariatric surgery induce weight loss will help. I did tell her I do not know if Biofreeze will be covered by insurance but I will be happy to prescribe it for the gap when diclofenac gel by prescription is unavailable., Osteoarthritis home care material was published Sep, Peripheral venous insufficiency (ICD-10 - I87.2) We discussed this is largely related to her obesity and we will continue HCTZ dosing as now and await response to bariatric surgery induced weight loss Sep, BMI 50.0-59.9, adult (ICD-10 - Z68.43) Bariatric surgery pending as above. Discussed I look forward to weight loss hopefully improving many of her chronic medical problems, Heart healthy diet material was published, Staying motivated while on a weight loss plan material was published Sep, GERD (gastroesophage al reflux disease) (ICD-10 - K21.9) Stable on current meds Sep, Essential (primary) hypertension (ICD-10 - I10) Stable on current meds Sep, Fibromyalgia (ICD-10 - M79.7) See dictation above Sep, Impaired glucose tolerance (ICD-10 - R73.02) We again discussed hemoglobin A1c is right on the cusp of diabetes. We will hope for improvement with bariatric surgery induced weight loss. Sep, Encounter for long-term (current) use of medications (ICD-10 - Z79.899) Sep, Thrombocytopenia (ICD-10 - D69.6) CBC currently normal. We will follow. She also follows with Dr. Henao Sep, Moderate persistent asthma without complication (ICD-10 - J45.40) Stable likely optimal baseline on current meds, Asthma action plan material was published Sep, Grade I diastolic dysfunction (ICD-10 - I51.89) As above, lisinopril increased by Dr. Braxton Sep, Mixed hyperlipidemia (ICD-10 - E78.2) Stable, appropriate statin dose, High cholesterol material was published Sep, Other RTO 6 months preceded by fasting CBC, BMP, hepatic panel, lipid profile, hemoglobin A1c and sooner as needed [employer] Other 10-05-2023 History of Present illness Narrative* Terese Braxton MD - 08/01/2023 10:30 AM EDT Subjective Paige Mccarty is a 58 y.o. female most recently seen in June 2023, at which time we increased her lisinopril obtained blood work, and ordered a 48-hour Holter monitor to evaluate her palpitations. She presents for follow-up. Continues to have occasional palpitations, but reports that during the Holter monitoring interval she did not have much palpitations. She is undergoing evaluation for bariatric surgery. Her home blood pressure log was reviewed, 110s to 130s systolic 60s to 80s diastolic and her heart rate hovers between 80s and low 100s. Blood pressure initially slightly above target recheck blood pressure 136/72 Laboratory data from June after up titration of lisinopril showed sodium of 141 potassium 4.5 creatinine of 0.76 and GFR greater than 60. Chief Complaint Results HPI Review of Systems Cardiovascular: Positive for palpitations. Respiratory: Positive for shortness of breath. Physical Exam Constitutional: Appearance: Normal appearance. She is normal weight. HENT: Nose: Nose normal. Neck: Vascular: No carotid bruit. Cardiovascular: Rate and Rhythm: Normal rate. Pulses: Normal pulses. Heart sounds: Normal heart sounds. Pulmonary: Effort: Pulmonary effort is normal. Abdominal: General: Bowel sounds are normal. Palpations: Abdomen is soft. Genitourinary: Rectum: Normal. Musculoskeletal: General: Normal range of motion. Cervical back: Normal range of motion. Right lower leg: Edema present. Left lower leg: Edema present. Skin: General: Skin is warm and dry. Neurological: General: No focal deficit present. Mental Status: She is alert. Psychiatric: Mood and Affect: Mood normal. Behavior: Behavior normal. Thought Content: Thought content normal. Judgment: Judgment normal. Visit Vitals BP 140/68 (BP Location: Right arm, Patient Position: Sitting) Pulse 70 Ht 1.575 m (5' 2 ) Wt 140 kg (308 lb) BMI 56.33 kg/m Smoking Status Every Day BSA 2.47 m Assessment/Plan 1. Progressively worsening exertional shortness of breath functional class III with bouts of orthopnea, the orthopnea is mostly due to coughing spells. 2. I suspect that her shortness of breath is related to her morbid obesity and underlying lung disease with ongoing nicotine addiction. 3. Given her risk factors and postmenopausal status, clearly cannot exclude anginal equivalent as etiology of shortness of breath but it is less likely 4. Morbid obesity, she has tried to quit smoking but says that she gains about 20 pounds every timeshe tries 5. Current functional capacity seems to be less than 4 METS 6. Evidence of peripheral vascular disease on examination in the left foot, decreased pulses without evidence of rest ischemia or clear-cut claudication or ulcers 7. Incomplete right bundle branch block 8. Chronic fatigue 9. 48-hour Holter monitor June 2023-sinus rhythm throughout with isolated ventricular premature beats predominantly Monoformed. 10. 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 Status postcholecystectomy and hysterectomy 12. No prior history of DVT or pulmonary embolism 13. Left upper quadrant tenderness to deep palpation, significance unclear, defer to primary 14. Hypertension-essential, at target 15. Hyperlipidemia-I was able to subsequently review lab data from Dr. Oberer's office, in September2022 total cholesterol 245 HDL 60 triglycerides 200 LDL 145 16. Hyperglycemia,? Diabetes, hemoglobin A1c 10/17/2022 6.3 17. Pulmonary function testing November 2022-there is a suggestion of restriction on spirometry butthis is not confirmed on measurement of static lung volumes, with a normal total lung capacity which is also without evidence of significant air trapping diffusion capacity is low normal and improvesfurther after adjustment for alveolar volume, which could suggest some component of ventilation/perfusion mismatch. 18. Echocardiogram December 2022-LVEF 60% impaired relaxation pattern of LV diastolic filling left atrial diameter 2.9 cm peak and mean gradients across aortic valve 11 and 5 respectively trace tricuspid regurgitation no pericardial effusion normal-sized aortic root LV end-systolic diameter 3.5 cm 19. 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 20. BNP level 16 January 2023 21. Lexiscan Myoview January 2023-normal, LVEF 56%, transient ischemic dilatation 1.11 significant breast attenuation artifact noted 22. Echocardiogram December 2022-LVEF 60%, normal chamber dimensions, impaired relaxation pattern of LV diastolic filling, no pericardial effusion, trace tricuspid regurgitation, LV end-systolic diameter 3.5 cm, PA pressure not estimated because there was no tricuspid regurgitation. Patient is encouraged to continue current medical therapy and ongoing risk factor modification. We had to stop the magnesium oxide because of diarrhea. I will plan on seeing her back in 6 months, cardiac medications were refilled. Comprehensive profile lipid profile and hemoglobin A1c prior to next visit. Okay for bariatric surgery with favorable risk-benefit ratio from my perspective. documented in this [facility] Work Phone: [phone]) 268-604610-05-2023 Instructions* Patient Instructions* Melquiades Ahmdai MA - 08/01/2023 10:30 AM EDT Please bring all medicines, vitamins, and herbal supplements with you when you come to the office. Prescriptions will not be filled unless you are compliant with your follow up appointments or have a follow up appointment scheduled as per instruction of your physician. Refills should be requested at the time of your visit. [facility]: [phone]) 266-579107-31-2023 Evaluation note* Encounter Date Diagnosis Assessment Notes Treatment Notes Treatment Clinical Notes Apr, Mild intermittent asthma without complication (ICD-10 - J45.20) Encourage patient to continue current maintenance treatment including inhaled steroid for her chronic hyperreactive airways Apr, Tobacco use disorder (ICD-10 - F17.200) Immediate smoking cessation was advised and discussed at length Apr, Gastroesophageal reflux disease, unspecified whether esophagitis present (ICD-10 - K21.9) Encourage patient stay on PPI therapy, nutritional and dietary restrictions, and obviously weight loss would be very important to management of this problem Apr, Morbid obesity (ICD- 10 - E66.01) [employer] Other 06-29-2023 Reason for visit Narrative1-2 MONTH/labs, Pharmacy: [facility], refills: All meds, increased Lisinopril and HCTZ at lastOV - jld, referral to [facility], referral to G[facility]; appt 05.27.23 - jld, Pt states she fell out of her car a few months ago, she's been having right elbow pain since. No other issues at this time. [facility]isele martin first visit pending May 27, required prebariatric surgery, Medical bariatric clinic calledthe patient to schedule consult. Discussed she is already seeing surgical bariatrics, patient was to clarify whether insurance will cover Ozempic and cover 2 different bariatric programs., [facility], [facility], done at [facility] in February, [facility] hematology, BP, , [employer] Other 06-27-2023 Evaluation note* Encounter Date Diagnosis Assessment Notes Treatment Notes Treatment Clinical Notes Mar, Moderate persistent asthma without complication (ICD-10 - J45.40) Mar, Primary osteoarthritis of left knee (ICD-10 - M17.12) [employer] Other 06-27-2023 Evaluation note* Encounter Date Diagnosis Assessment Notes Treatment Notes Treatment Clinical Notes Mar, Fall with injury (ICD-10 - W19.XXXA) Her exam is consistent with both medial and lateral right elbow epicondylitis. However, in light of her traumatic fall and persistent pain, she will get right elbow x-ray downstairs on the way out of the office today to rule out fracture, etc. Further treatment will be pending x-ray results. Mar, Elbow pain, right (ICD-10 - M25.521) See dictation above Mar, Breast cancer screening by mammogram (ICD-10 - Z12.31) At her request we will order her mammograms to be done at [facility] Macrina Sunifer 04/23/2023 11:33:16 AM > 05.15.23 mammogram order faxed to [facility] , Health screenings for women material was published Mar, GERD (gastroesophage al reflux disease) (ICD-10 - K21.9) Her upper GI x-ray was normal. Asymptomatic on omeprazole Mar, Essential (primary) hypertension (ICD-10 - I10) Stable on current meds. I did encourage monthly home BP check, The DASH diet material was published Mar, Morbid obesity (ICD- 10 - E66.01) She is on track to hopefully be approved for bariatric surgery. We again discussed that significant weight loss would help many of her chronic medical problems. Last visit I referred her to the [facility] medical bariatric clinic to see if she is a candidate for Ozempic. They did talk to her and after a couple phone conversations with the medical bariatric clinic, Paige elected to hold off on that and continue to pursue bariatric surgery., Obesity: adult home care material was published Mar, Impaired glucose tolerance (ICD-10 - R73.02) She remains right on the cusp of type 2 diabetes. Hopefully this will improve if she gets bariatric surgery. Mar, Encounter for long-term (current) use of medications (ICD-10 - Z79.899) Mar, Thrombocytopenia (ICD-10 - D69.6) Platelets currently normal. Continue with Dr. Henao Mar, Elevated cholesterol (ICD-10 - E78.00) Improving with the addition of Crestor. 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 I repeated full lab panel because of her medical complexity. [employer] Other 03-01-2023 History of Present illness Narrative* Patient was most recently seen in December 2022. * Past medical history is as noted below. Has cut back on cigarettes, previously greater than 1 pack/day, currently 5 cigarettes daily, vaping occasionally 0% nicotine. * Shortness of breath comes and goes. This past weekend had palpitations, felt like the heart was beating out of her chest, sometimes these episodes occur while she is lying down, sometimes when she isup and about. Episodes last several minutes and are sometimes associated with tightness in the chest and jaw. * Scheduled for bariatric surgery next month in [place], going through different aspects of work-up. * Has a resting tremor, and has been anxious, so primary regarding anxiety issues. * Had to cut back rosuvastatin because of pain in every joint according to her. * Blood pressure is elevated recheck blood pressure also elevated. * HISTORY SO FAR : * 1. Progressively worsening exertional shortness of breath functional class III with bouts of orthopnea, the orthopnea is mostly due to coughing spells. * 2. I suspect that her shortness of breath is related to her morbid obesity and underlying lung disease with ongoing nicotine addiction. * 3. Given her risk factors and postmenopausal status, clearly cannot exclude anginal equivalent as etiology of shortness of breath but it is less likely * 4. Morbid obesity, she has tried to quit smoking but says that she gains about 20 pounds every timeshe tries * 5. Current functional capacity seems to be less than 4 METS * 6. Evidence of peripheral vascular disease on examination in the left foot, decreased pulses without evidence of rest ischemia or clear-cut claudication or ulcers * 7. Incomplete right bundle branch block * 8. Chronic fatigue * 9. She has not had any objective pulmonary testing * 10. 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 Status postcholecystectomy and hysterectomy * 12. No prior history of DVT or pulmonary embolism * 13. Left upper quadrant tenderness to deep palpation, significance unclear, defer to primary * 14. Hypertension-essential, at target * 15. Hyperlipidemia-I was able to subsequently review lab data from Dr. Bright's office, in September2022 total cholesterol 245 HDL 60 triglycerides 200 LDL 145 * 16. Hyperglycemia,? Diabetes, hemoglobin A1c 10/17/2022 6.3 * 17. Pulmonary function testing November 2022-there is a suggestion of restriction on spirometry butthis is not confirmed on measurement of static lung volumes, with a normal total lung capacity which is also without evidence of significant air trapping diffusion capacity is low normal and improves further after adjustment for alveolar volume, which could suggest some component of ventilation/perfusion mismatch. * 18. Echocardiogram December 2022-LVEF 60% impaired relaxation pattern of LV diastolic filling left atrial diameter 2.9 cm peak and mean gradients across aortic valve 11 and 5 respectively trace tricuspid regurgitation no pericardial effusion normal-sized aortic root LV end-systolic diameter 3.5 cm * 19. 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 * 20. BNP level 16 January 2023 * Reviewed laboratory data from June 2023 to include basic metabolic profile, comprehensive profile and lipid profile. Renal function is normal potassium 4.1 lipid profile is at target. * Assessment: * 1. Hypertension-suboptimally controlled * 2. Palpitations-need further work-up * 3. Nicotine cessation encouraged * 4. Cardiac risk for bariatric surgery is considered acceptable and may proceed as planned. * 5. Hyperlipidemia-at target * Recommendations: * 1. 48-hour Holter monitor * 2. Magnesium oxide 400 mg p.o. twice daily, discussed some of the side effects * 3. Increase lisinopril to 40 mg daily, currently listed as taking 20 mg daily * 4. Basic metabolic profile 7 to 10 days * 5. Follow-up after testing sooner if interval problems arise. * 6. Given recent lipid profile results, can continue current dose of atorvastatin. -[facility] [address] DO Work Phone: [phone]) 314-613512-29-2022 Evaluation note* Encounter Date Diagnosis Assessment Notes Treatment Notes Treatment Clinical Notes Sep, Essential (primary) hypertension (ICD-10 - I10) [facility] [employer] Other 12-27-2022 Evaluation note* Encounter Date Diagnosis Assessment Notes Treatment Notes Treatment Clinical Notes Sep, Weight gain (ICD-10 - R63.5) Her weight gain is significant. At least based on exam and history I think most of this is likely increased obesity. With her edema and other symptoms, consider component of fluid retention/CHF. We will start today with some weight loss labs. I will want her to get back to the gym but not until we further evaluate her exertional dyspnea Sep, Abdominal pain (ICD-10 - R10.9) This may simply be adipose fat pad with lower left-sided costochondritis versus other causes. She will obtain flat and upright abdominal x-ray on the way out of the office today and then we will decide further work-up or treatment. Sep, Fatigue (ICD-10 - R53.83) Fatigue labs will be drawn today Sep, Dyspepsia (ICD-10 - R10.13) Sep, Left upper quadrant abdominal pain (ICD-10 - R10.12) See dictation above Sep, Exertional dyspnea (ICD-10 - R06.09) We discussed we need to work this up. We consider obesity, cardiac, pulmonary, etc. We will send for her pre-[facility] emergency room notes and chest x-ray. In light of her significant symptoms, we will also obtain another chest x-ray today. Also refer to [facility]. Discussed consider cardiac component. She does have known asthma as well and also history of nocturnal hypoxia. May need sleep clinic referral at some point as well Sep, Peripheral edema (ICD-10 - R60.9) Await the above labs. Pending results I will consider adding a diuretic Sep, Insomnia, unspecifie d type (ICD-10 - G47.00) See dictation above. She is describing perhaps orthopnea but she did not have any JVD or dyspnea laying down today Sep, Gastro-esophageal reflux disease without esophagitis (ICD-10 - K21.9) Probably stable on omeprazole but may need further work-up as above Sep, Unspecified asthma with status asthmaticus (ICD-10 - J45.902) Continue current asthma meds. She is not interested in stopping smoking. May need PFTs Sep, Essential (primary) hypertension (ICD-10 - I10) Stable on current meds Sep, Cystocele, midline (ICD-10 - N81.11) Continue with Dr. Lemus Sep, Rectocele (ICD-10 - N81.6) See dictation above Sep, Chronic back pain (ICD-10 - M54.9) Perhaps stable optimal baseline on Tylenol Sep, Spondylolysis, lumba r region (ICD-10 - M43.06) See dictation above Sep, Fibromyalgia (ICD-10 - M79.7) See dictation above Sep, Morbid obesity (ICD-10 - E66.01) See dictation above. I did not further discuss bariatric surgery referral pending the above but she may be a candidate for that. Sep, Essential tremor (ICD-10 - G25.0) She does have a mild essential tremor that increases as I begin to examine her and she is aware this is probably a stress response Sep, Impaired glucose tolerance (ICD-10 - R73.02) We discussed she is bordering on diabetes. Healthy diet, weight loss encouraged. Pending above labs, she may be a candidate for metformin. Sep, Encounter for long-term (current) use of medications (ICD-10 - Z79.899) Sep, Thrombocytopenia (ICD-10 - D69.6) She will get CBC today. Sep, Elevated cholesterol (ICD-10 - E78.00) Healthy diet and weight encouraged. At this point she is not a statin candidate Sep, Moderate persistent asthma without complication (ICD-10 - J45.40) Sep, Primary osteoarthritis of left knee (ICD-10 - M17.12) Sep, GERD (gastroesophageal reflux disease) (ICD-10 - K21.9) Sep, Other Discussed I wan t to see the above results before deciding what comes next and when I want to see her. RTO pending above and sooner as needed., Hydrochlorothiazide material was published [employer] Other 11-11-2022 Evaluation note* Encounter Date Diagnosis Assessment Notes Treatment Notes Treatment Clinical Notes Aug, Moderate persistent asthma without complication (ICD-10 - J45.40) Aug, Essential (primary) hypertension (ICD-10 - I10) Aug, Primary osteoarthritis of left knee (ICD-10 - M17.12) Aug, GERD (gastroesophageal reflux disease) (ICD-10 - K21.9) [employer] Other 03-24-2022 Evaluation note* Encounter Date Diagnosis Assessment Notes Treatment Notes Treatment Clinical Notes Dec, Acute non-recurrent sinusitis, unspecified location (ICD-10 - J01.90) Dec, Chronic rhinitis (ICD-10 - J31.0) Except for the above, likely optimal baseline. Continue Flonase, Singulair Dec, Left hip pain (ICD-1 0 - M25.552) It looks like we have previously ordered left hip x-ray x-ray and she did not go. We have also discussed possible physical therapy referral and she did not do so. She is ready to pursue things now. Schedule left hip x-ray, schedule lumbar spine x-rays. Discussed most likely OA versus other causes. She appears to have fibromyalgia also in these areas on exam. Pending x-ray results, we will likely refer to physical therapy. I did discuss with her that in light of her delta granule storage pool disease and history of low platelets, I do not want to give her nonsteroidals. She can continue Tylenol as now. I do not have any other good medication options because of the multiple things she has not tolerated. Hopefully physical therapy will help. Her pain is so generalized that I do not think pain management referral would help at this point Dec, Lumbosacral pain (ICD-10 - M54.50) See dictation above Dec, Breast cancer screening by mammogram (ICD-10 - Z12.31) I offered to order mammograms. She states she just got the reminder letter in the mail when she will order mammograms herself Dec, Colon cancer screening (ICD-10 - Z12.11) 3 home Hemoccult cards given Dec, GERD (gastroesophageal reflux disease) (ICD-10 - K21.9) Stable likely optimal baseline on omeprazole Dec, Moderate persistent asthma without complication (ICD-10 - J45.40) Stable likely optimal baseline on maximal medical care Dec, Essential (primary) hypertension (ICD-10 - I10) Stable on current meds Dec, Fibromyalgia (ICD-10 - M79.7) Stable likely optimal baseline. Hopefully her exercise and summer weather will help Dec, Morbid obesity (ICD-10 - E66.01) Discussed she has ongoing positive weight loss. Further weight loss, healthy diet, exercise encouraged. Hopefully this will also help her musculoskeletal pains Dec, Encounter for long-term (current) use of medications (ICD-10 - Z79.899) Dec, Thrombocytopenia (ICD-10 - D69.6) Platelets currently normal. We will not give nonsteroidals as above Dec, Elevated cholesterol (ICD-10 - E78.00) Improved with healthy diet and weight loss. Does not need a statin Dec, Primary osteoarthritis of left knee (ICD-10 - M17.12) She feels doing well and does not need to follow-up with Dr. Haas Dec, Other tear of latera l meniscus of left knee as current injury, initial encounter (ICD-10 - S83.282A) See dictation above Dec, Impaired glucose tolerance (ICD-10 - R73.02) Hemoglobin A1c is normal. Continue healthy weight and diet. Risk of diabetes discussed Dec, Other RTO 6 months preceded by fasting lipid profile, hemoglobin A1c and sooner as needed or pending above, Omeprazole material was published [employer] Other 07-10-2018 Progress note Author Casey Oliveira [facility] May 06, 2018 2:37pm Note Date/Time May 06, 2018 2:28 pm [facility] at [address] [address] Hem/Onc Follow Up Note - OP Signed Patient: Paige Mccarty MR#: [id number] : 1965 Acct:[id number] Age/Sex: 53 / F Type: REG RCR Copies to: VICKI Kumar Subjective Date/Time of Service: Date of Service: 05/06/2018 Time of Service: 14:27 Chief Complaint: Follow up appt - Diagnosis DIAGNOSIS: 1. 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 -Prior work-up for the extensive and easy bruising and extensive family history of bruising was negative for a deficiency von Willebrand factor, factor VIII, platelet function assay, coagulation tests were all normal. -DDAVP 40mcg IV given prior to cholecystectomy 10/2016, no bleeding. 2. Mild thrombocytopenia, developed in 01/2016. 3. Morbid obesity with BMI >50. -The patient plans to undergo bariatric surgery, but need to stop smoking first. HPI: Mrs. Mccarty is a 53-year-old lady with Delta granule storage pool disease/thrombocytopenia presents for a follow up. She reports easy bruising is stable, small purpura in feet comes and goes. - Summary of Therapies Summary of Therapies: 1. DDAVP (0.3mcg/kdg266=75nug, round to 40mcg) IV, prn, 30 min before surgery. Subjective/ROS - Narrative: CONSTITUTIONAL: No weight loss, fever, chills, weakness or fatigue. CARDIOVASCULAR: No chest pain, chest pressure or chest discomfort. No palpitations or edema. RESPIRATORY: No shortness of breath, cough or hemoptysis. GASTROINTESTINAL: No dysphagia, nausea, vomiting or diarrhea. No abdominal pain,melena, hematochezia. GENITOURINARY: No dysuria, urinary frequency or urgency. NEUROLOGICAL: No headache, dizziness, syncope, numbness or tingling in the extremities. MUSCULOSKELETAL: No back pain, or joint pain. Home Medications & Allergies Allergies Allergy/AdvReac Type Severity Reaction Status Date / Time cefuroxime [From Ceftin] Allergy Unknown Verified 05/06/18 14:08 Reaction sertraline [From Zoloft] Allergy Unknown Verified 05/06/18 14:10 Reaction tramadol [From Ultram] Allergy Unknown Verified 05/06/18 14:10 Reaction Home Medications Medication Instructions Recorded Confirmed Type duloxetine 60 mg PO DAILY 05/06/18 05/06/18 History hydrochlorothiazide 25 mg PO DAILY 05/06/18 05/06/18 History lisinopril 10 mg PO DAILY 05/06/18 05/06/18 History omeprazole 20 mg PO DAILY 05/06/18 05/06/18 History oxcarbazepine 300 mg PO DAILY 05/06/18 05/06/18 History pregabalin [Lyrica] 75 mg PO DAILY 05/06/18 05/06/18 History tizanidine 4 mg PO DAILY 05/06/18 05/06/18 History Objective - Height/Weight Height/Weight: Height 5 ft 2.5 in Weight 133.7 kg - Vital Signs Vital Signs: Temp 98 F 05/06/18 14:11 Pulse 95 H 05/06/18 14:11 Resp 20 05/06/18 14:11 BP 148/89 H 05/06/18 14:11 Pulse Ox 94 L 05/06/18 14:11 - Emotional Needs Assessment Emotional Needs Assessment: Emotional Needs Identified? No Distress Screening Total 0 Physical Exam Narrative: GENERAL APPEARANCE: In no acute distress. HEENT: Moist and clear, no oral thrush. LUNGS: Clear to auscultation bilaterally, no rales, rhonchi, or crackles. CARDIOVASCULAR: S1 and S2, regular rate and rhythm, no murmurs, gallops, rubs. ABDOMEN: Soft, nontender, bowel sounds normal. EXTREMITIES: No edema or calf tenderness. NEUROLOGIC: Grossly intact. Results - Labs Labs: 04/23/18: WBC 3.4, Hgb 14.2, platelet 163. Assessment and Plan (1) Delta storage pool disease Status: Chronic No significant bleeding, no surgery planned. -If surgery is needed, consider DDAVP (0.3mcg/hnu260=91iac, round to 40mcg) IV, prn 30 min prior to surgery. Watch hyponatremia. -If she developed excessive bleeding, consider 2 units of pooled platelets. Repeat dose of DDAVP can be given. (2) Thrombocytopenia Status: Chronic likely immune-related. Platelet count normalized. -See as needed. - Time Spent with Patient Greater than 50% of time spent with patient was for coordination of care (as documented) and [id number] counseling of patient and/or family. less than 15 minutes Dictated By: Casey Oliveira MD DD/ 142 Signed By: <Electronically signed by Casey Oliveira MD> 05/06/18 143 [facility] Work Phone: [phone]) [phone] History general Narrative - Reported* Type Description Date Medical History asthma - mild persistent Medical History Esophageal reflux Medical History GERD Medical History Nocturnal hypoxia-2008 (sleep study) Dr. Jaquez Medical History Impaired glucose tolerance 2013 Medical History Delta granule storag e pool diseased 2013 Dr. Infante Medical History OA lumbar spine 2014 Xray Medical History Essential HTN 2014 Medical History CTS bilat-Dr Laurent Medical History Degenerative disc disease LS-201 6 Surgical History D&C (post delivery bleeding)-Dr Leon Lemus 1997 Surgical History Procedure:;Disease:Pregnanc y 1995 Surgical History 04/2007 Surgical History Procedure:;Disease:Pregnanc y 1997 Surgical History D&C DUB, fibroids-Dr. Lemus Surgical History Procedure: section;Dise ase: 2002 Surgical History Hysterectomy, bilat salpingooph arectomy 2007 Surgical History Procedure:;Disease:Preg stephani 2002 Surgical History EGD (neg) Dr. Avery 11/2007 Surgical History Procedure:tubal ligation;Diseas e: 2002 Surgical History laparoscopic cholecystectomy Dr Leon Gleason September 2016 Surgical History Procedure:DUBhysteroscopy, D&C; Disease: 2006 Surgical History Procedure:CHARISSE/BSO;Disease: 2007 Surgical History Procedure:TVT-O;Disease: 2007 Surgical History Gallbladder removal 11-03-2016 Surgical History top of head cyst removal Hospitalization History EGD (neg)- Dr. Avery 11/2007 [employer] Other Consult note Author Abena Henao [facility] March 28, 2023 8:36pm Note Date/Time March 28, 2023 2:15p m [facility] at [address] [address] Hem/Onc Consult Note - OP Signed Patient: Paige Mccarty MR#: [id number] : 1965 Acct:[id number] Age/Sex: 57 / F Type: REG RCR Copies to: DO López Kumar MD~ HPI Date/Time of Service: Date of Service: 03/28/2023 Time of Service: 14:13 Referring Provider/PCP: Referring Provider: Awais Bright DO PCP: Awais Bright DO - History of Present Illness Reason for Consultation: Preoperative clearance for known history of delta granule storage pool platelet dysfunction. Planned bariatric surgery but does not yet have surgical date. Chief Complaint: Patient is here today for surgical clearance for baratirc surgery. This is a referral from from Dr Awais Bright DO HPI: Dear Dr. Bright, I had the great pleasure of seeing your patient in consultation. Thank you verymuch for your referral. Mrs. Mccarty is a now 57-year-old lady who previously saw 2 of my former partners Dr. Alexandru Infante and Dr. Casey Oliveira who no longer practice at our facility. Her prior history before diagnosis was summarized below. Dr. Infante establish the diagnosis of delta granule storage pool disease/thrombocytopenia with last appointment in 2018. She had extensive priorwork-up for von Willebrand's syndrome which was also negative. This rare platelet functional disorder does tend to respond to arginine vasopressin (DDAVP) to prevent surgical bleeding and this was successfully utilized in 2016 before cholecystectomy without any surgical complications. She is now scheduledfor bariatric surgery with surgical recommendations/ clearance . She reports easy bruising is stable, small purpura in feet comes and goes. She had cardiac clearance for surgery and we are forwarding this note as well as a clearance form to her surgeon Dr. L[facility] to inform us of her surgical date so that we can infusion DDAVP weight-based dosing (0.3 mcg/kg, maximum dose 20 mcg FDA approved, previously received 40 mcg IV). She may have standby platelet 1 to 2 units perioperatively in case there are concerns for surgical bleeding. She should not require routine follow-up at hematology clinic other than DDAVP infusion andcan return on an as-needed basis. This is a high complexity 90-minute consultation to review prior work-up for her delta granule storage pool disease,review history and exam, and provide surgical clearance and recommendations for DDAVP infusion prior to upcoming bariatric surgery. Original consult September 03, [address] Infante: The patient has had 3 pregnancies and 1 hysterectomy. After each there was an extraordinary amount of bleeding and she had very heavy menses withincreased frequency about 7 to 10 days between menstrual cycles. She required 1blood transfusion with her second . She previously was taking aspirin once or twice weekly for migraine headaches. Her platelet count had been mildlydecreased at 130,000. He sent an extensive panel with PT/PTT, INR, factor VIII,von Willebrand factor antigen, multimers, and functional assay. 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 She was instructed to stop any aspirin or NSAIDs in this improved prior easy bruisability. She wasscheduled for elective cholecystectomy in October 2016 and was treated with DDAVP 40 mcg IV with no bleeding complications. Prior thrombocytopenia has resolved. She has not seen anyone in our clinic since 2017. No significant bleeding episodes since that time and she had a superficial scalp cyst removed in [address] Gleason without bleeding issues PMFSH - History Attestation statement: The following information was validated with the patient. Source: Old Records Reviewed - Medical History Medical History: Medical History (Last Reviewed 03/28/23 @ 14:15 by Abena Henao MD) Anemia Arthritis Asthma Back pain Blood clotting disorder Delta granular storage pool deficiency Borderline diabetes Bronchitis CTS (carpal tunnel syndrome) DDD (degenerative disc disease) Fibromyalgia GERD (gastroesophageal reflux disease) Hypertension Migraine headache Mixed hyperlipidemia Rotator cuff tear left Scoliosis Seasonal allergies Sleep apnea Smoker Torn meniscus left knee Tremor neck/head Uterine cancer - Surgical History Surgical History: Surgical History (Last Reviewed 03/28/23 @ 14:15 by Abena Henao MD) H/O hysterectomy with oophorectomy History of bladder surgery TVTO History of section Hx laparoscopic cholecystectomy - Family History Family History: Family History (Last Reviewed 03/28/23 @ 14:15 by Abena Henao MD) Mother HTN (hypertension) Skin cancer Father Thyroid disease Skin cancer Brother Skin cancer - Social History Smoking Status: Current every day smoker Tobacco Type: cigarettes Substance Use Type: None Home Medications & Allergies Allergies adhesive tape Allergy (Verified 03/28/23 14:00) Redness of Skin cefuroxime [From Ceftin] Allergy (Verified 03/28/23 14:00) Rash sertraline [From Zoloft] Allergy (Verified 03/28/23 14:00) Agitated tramadol [From Ultram] Allergy (Verified 03/28/23 14:00) Hives venom-honey bee [bee venom (honey bee)] Allergy (Verified 03/28/23 14:00) Swelling aspirin Adverse Reaction (Verified 03/28/23 14:00) unable to take because of clotting disorder NSAIDS (Non-Steroidal Anti-Inflamma Adverse Reaction (Verified 03/28/23 14:00) unable to take because of clotting disorder pregabalin Adverse Reaction (Verified 03/28/23 14:00) Fatigued, drowsy Home Medications hydrochlorothiazide 25 mg tablet 50 mg PO DAILY htn 05/06/18 [History Confirmed 03/27/23] lisinopril 10 mg tablet 20 mg PO DAILY htn 05/06/18 [History Confirmed 03/27/23] omeprazole 20 mg capsule,delayed release 40 mg PO QHS gerd 05/06/18 [History Confirmed 01/30/21] diclofenac sodium 1 % topical gel 1 ea topical DAILY PRN Pain 01/23/21 [History Confirmed 03/28/23] fluticasone propionate 250 mcg/actuation blister powder for inhalation (Flovent Diskus) 2 inh inhalation QHS asthma 01/23/21 [History Confirmed 03/28/23] fluticasone propionate 50 mcg/actuation nasal spray,suspension 1 spray intranasal QHS allergies 01/23/21 [History Confirmed 03/28/23] montelukast 10 mg tablet 10 mg PO QHS allergies 01/23/21 [History Confirmed 03/28/23] acetaminophen 500 mg tablet 500 mg PO Q6H 03/27/23 [History Confirmed 03/27/23] rosuvastatin 40 mg tablet 40 mg PO DAILY 03/27/23 [History Confirmed 03/27/23] albuterol sulfate 90 mcg/actuation aerosol inhaler (Ventolin HFA) 1 inh inhalation ONCE 03/28/23 [History Confirmed 03/28/23] vit no.133-ferrous fumarate 28 mg-folic acid 800 mcg tablet () tab PO 03/28/23 [History] Subjective Data - Diagnosis DIAGNOSIS: 1. 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 -Prior work-up for the extensive and easy bruising and extensive family history of bruising was negative for a deficiency von Willebrand factor, factor VIII, platelet function assay, coagulation tests were all normal. -DDAVP 40mcg IV given prior to cholecystectomy 10/2016, no bleeding. 2. Mild thrombocytopenia, developed in 01/2016. 3. Morbid obesity with BMI >50. -The patient plans to undergo bariatric surgery, reports she quit smoking a few years ago and regained 20 pounds therefore now undergoing clearance for subsequent surgery. 4. We will plan to give DDAVP 0.03 mcg/kg IV 1 day prior to upcoming bariatric surgery. Maximum dose recommended is 20 mcg (previously was given 40 mcg in 2016). - Summary of Therapies Summary of Therapies: 1. DDAVP (0.3mcg/pun279=63lqk, round to 40mcg) IV, prn, 30 min before surgery. 2. Plan to give DDAVP (0.3mcg/kad466=97wpc, round to 40mcg) Subjective/ROS - Narrative: CONSTITUTIONAL: Negative for fatigue, negative for fever or night sweats. HEAD AND NECK: Negative for changes in hearing and vision. Negative for mouth ulcers, nasal congestion and nasal drainage. PULMONARY: Negative for chest pain, cough and dyspnea. CARDIOVASCULAR: Negative for claudication and irregular heartbeat/palpitations. GASTROINTESTINAL: Negative for abdominal pain, constipation, decreased appetite,diarrhea, nausea, and vomiting. GENITOURINARY: Negative for dysuria and hematuria. ENDOCRINE: Negative for cold intolerance and heat intolerance. Morbid obesity as per HPI. CENTRAL NERVOUS SYSTEM: Negative for gait disturbance and headache. PSYCHIATRIC: Negative for anxiety or depression. DERMATOLOGICAL: Negative for pruritus and rash. Negative for suspicious skin lesions. MUSCULOSKELETAL: Negative for back pain and bone/joint symptoms. HEMATOLOGICAL: Negative for bleeding and easy bruising. Negative for history of thromboembolic disease. Only one transfusion of RBC with second . ALLERGY: Negative for environmental allergies and food allergies. ROS Details: All systems reviewed & no additional complaints except as documented Objective - Height/Weight Height/Weight: Height 5 ft 2.5 in Weight 139.48 kg - Vital Signs Vital Signs: 03/28/23 14:07 Temperature 97.8 F Pulse Rate [Right Brachial] 16 L Respiratory Rate 16 Blood Pressure [Right Arm] 133/80 02 Sat by Pulse Oximetry 94 L Oxygen Delivery Method Room Air Physical Exam Narrative: GENERAL APPEARANCE: In no acute distress. Morbid obesity HEENT: Moist and clear, no oral thrush. LUNGS: Clear to auscultation bilaterally, no rales, rhonchi, or crackles. CARDIOVASCULAR: S1 and S2, regular rate and rhythm, no murmurs, gallops, rubs. ABDOMEN: Soft, nontender, bowel sounds normal. EXTREMITIES: No edema or calf tenderness. NEUROLOGIC: Grossly intact. Independently ambulatory. - ECOG Performance Status ECOG Score: 1 Results - Labs Labs: No recent laboratories for review. - Impressions No recent imaging for review. Assessment and Plan (1) Delta storage pool disease 57 year old lady with a history of hemorrhage and menorrhagia--she was referred to hematology in 2013 when platelet count had been mildly decreased at 130,000. My partner Dr. Infante sent an extensive panel with PT/PTT, INR, factor VIII, von Willebrand factor antigen, multimers, and functional assay. After those tests returned normal she was sent for platelet function studies in October 2014 which were diagnostic for delta granule storage pool disease based on electron microscopy report for 1.51 DG/PL (normal is 4 to 6 DG/PL). She was instructed to stop any aspirin or NSAIDs in this improved prior easy bruisability. She was scheduled for elective cholecystectomy in October 2016 and was treated with DDAVP 40 mcg IV with no bleeding complications. Prior thrombocytopenia has resolved. She had a minor surgery procedure without significant bleeding in 2020. She nowis deemed a candidate for bariatric surgery. Given her prior good tolerance andlack of bleeding postoperatively after cholecystectomy, I will again treat 1 dayprior to her bariatric surgery for DDAVP. -With prior surgery, she received DDAVP (0.3mcg/vdv792=76fec, round to 40mcg) IV, prn 30 min prior to surgery. Package insert of this medication recommends cap of dose at 20mcg and I recommend treating at this lower dose. Watch for hyponatremia. -I asked patient to inform me of surgical date at least 2 weeks prior so we can authorize and schedule DDAVP infusion one day before. -If she develops excessive bleeding, consider 2 units of pooled platelets perioperatively (may order standby). Repeat dose of DDAVP can be given perioperatively on day of surgery. The patient expressed understanding over 60 min face to face, 30 min record review this visit. I would like to thank you very much for the courtesy of this referral. I will keep you up-to-date with this patient's progress. Should you have any questionsregarding the management of this patient, please do not hesitate to contact me. Sincerely, Abena Henao MD, FACP Medical Oncology (2) Morbid obesity with BMI of 50.0-59.9, adult Perioperative clearance paperwork filled out for bariatric surgeon Dr. López Kidd in [place]. (3) Encounter for coordination of complex care Will complete DDAVP infusion orders when I am notified of surgical date. - Time with Patient Total Time Spent with Patient (Consult): 60 mins or more - High complexity 90 minute visit for reviewing extensive prior records since initial consultation [id number], surgical clearance form, preparation of DDAVP orders once surgical date isgiven. Coordination of Care & Counseling Time: Greater than 50% of time spent with patient was for coordination of care (as documented) and [id number] counseling of patient and/or family. Dictated By: Abena Henao MD DD/ [id number] Signed By: <Electronically signed by MD Abena Henao> 03/28/232035 [facility] Work Phone: Evaluation noteNo InformationNort [employer] 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 chronic [facility] Work Phone: Evaluation note* Diagnosis Onset Date Resolution Status Delta storage pool disease c hronic Encounter for coordination of complex care chronic Morbid obesity with BMI of 50.0-59.9, adult chronic Thrombocytopenia chronic [facility] Work Phone: Evaluation note* Diagnosis Hypertensive heart disease without CHF- Primary Encounter to discuss test results Other specified counseling SOB (shortness of breath) Shortness of breath Hyperlipemia, mixed Mixed hyperlipidemia Pre-diabetes Other abnormal glucose BMI 50.0-59.9, adult ([facility]) PVC (premature ventricular contraction) Other premature beats Current every day smoker documented in this encounter [facility] Work Phone: Evaluation note* Diagnosis Morbid obesity ([facility]) Morbid obesity Hypertension, unspecified type [facility] Diagnosis 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 Other and unspecified postsurgical nonabsorption Vitamin D deficiency Post-operative nausea and vomiting Nausea with vomiting documented in this encounter [facility] Diagnosis Postsurgical malabsorption- Primary Malnutrition following gastrointestinal surgery Other and unspecified postsurgical nonabsorption History of Da-en-Y gastric bypass documented in [facility] Diagnosis S/P gastric bypass- Primary Bariatric surgery status Hypertensive heart disease without CHF Hyperlipemia, mixed Mixed hyperlipidemia Current every day smoker Hypokalemia Hypopotassemia Medication course changed BMI 45.0-49.9, adult ([facility]) documented in this encounter [facility] Work Phone: History of Present illness Narrative* 57-year-old is being seen in cardiology consultation at the request of Dr. Bright regarding shortness of breath. Patient is accompanied by to the office. * Patient has morbid obesity. She reports frequent bouts of bronchitis requiring ER visits. She has been short short of breath for years, however the symptoms are steadily progressive. * Prior to 2021 she had to be evaluated in the emergency department at [place] she is on multiple inhalers. She reports audible wheezing. She reports constant fatigue and sense of exhaustion. She has to wake up several times at night because of shortness of breath and cough. * She reports that her feet get swollen. She denies chest pressure tightness heaviness, complains of diffuse arthritic pain. * She reports history of blood clotting disorder, she gets clotting factors infused prior to any surgery. She follows up with hematology oncology. * He is a chronic heavy smoker starting at age 18, says she has tried multiple times to quit smoking but ends up gaining 20 pounds. * She is prediabetic. 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 Her other allergies were reviewed and includes latex. * She has a history of hypertension. She is on medication for GERD. * Her EKG today shows sinus rhythm at 86 bpm with TN interval of 170 ms QRS duration 96 ms QTc 461 msand incomplete right bundle branch block. * She has history of cholecystectomy hysterectomy for cancer. Her blood pressure is at target * Her EKG was reviewed. Recent laboratory data was reviewed. Hemoglobin and hematocrit are 13.4 and 40 and platelet count 260, fasting glucose 108 BUN 15 creatinine 0.7 GFR greater than 60 sodium 136 potassium 4.3 liver enzymes normal Free T4 8.37 Which is normal, TSH is 1.91 and is normal. I do not see a lipid profile. Chest x-ray from 10/23/2022 was reported to be without infiltrates or effusionsor cardiomegaly * No family history of premature coronary artery disease. * Assessment: * 1. Progressively worsening exertional shortness of breath functional class III with bouts of orthopnea, the orthopnea is mostly due to coughing spells. * 2. I suspect that her shortness of breath is related to her morbid obesity and underlying lung disease with ongoing nicotine addiction. * 3. Given her risk factors and postmenopausal status, clearly cannot exclude anginal equivalent as etiology of shortness of breath but it is less likely * 4. Morbid obesity, she has tried to quit smoking but says that she gains about 20 pounds every timeshe tries * 5. Current functional capacity seems to be less than 4 METS * 6. Evidence of peripheral vascular disease on examination in the left foot, decreased pulses without evidence of rest ischemia or clear-cut claudication or ulcers * 7. Incomplete right bundle branch block * 8. Chronic fatigue * 9. She has not had any objective pulmonary testing * 10. 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 Status postcholecystectomy and hysterectomy * 12. No prior history of DVT or pulmonary embolism * 13. Left upper quadrant tenderness to deep palpation, significance unclear, defer to primary * 14. Hypertension-essential, at target * 15. Hyperlipidemia-I was able to subsequently review lab data from Dr. Bright's office, in September2022 total cholesterol 245 HDL 60 triglycerides 200 LDL 145 * 16. Hyperglycemia,? Diabetes, hemoglobin A1c 10/17/2022 6.3 * Recommendations: * 1. Extensive discussion about risk factor modification weight loss and nicotine abstinence. * 2. Her concern for weight loss is legitimate, she is wanting to consider bariatric surgery. This isreasonable * 3. I have told her to discuss with Dr. Bright about Ozempic, she has elevated blood glucose, Ozempic might help with weight loss as well. * 4. We will proceed with an echocardiogram BNP level Free T4 and TSH if not already done * 5. Pulmonary function testing with DLCO with and without bronchodilator * 6. Please obtain notes from hematology oncology regarding her rare blood disorder. * 7. We talked about testing for coronary artery disease. This is going to be quite challenging givenher body weight and size. Any imaging we do may be associated with some quality images. * Thank you for allowing us to participate in His care, please do not hesitate to call if further questions arise, * Sincerely, * Terese Braxton MD [facility] * Addendum, this patient would benefit from statin therapy. Her LDL goal would be closer to 70 would recommend rosuvastatin 40 mg daily with lipid and liver to be checked 3 months after. [facility] Work Phone: History of Present illness Narrative* 1. Progressively worsening exertional shortness of breath functional class III with bouts of orthopnea, the orthopnea is mostly due to coughing spells. * 2. I suspect that her shortness of breath is related to her morbid obesity and underlying lung disease with ongoing nicotine addiction. * 3. Given her risk factors and postmenopausal status, clearly cannot exclude anginal equivalent as etiology of shortness of breath but it is less likely * 4. Morbid obesity, she has tried to quit smoking but says that she gains about 20 pounds every timeshe tries * 5. Current functional capacity seems to be less than 4 METS * 6. Evidence of peripheral vascular disease on examination in the left foot, decreased pulses without evidence of rest ischemia or clear-cut claudication or ulcers * 7. Incomplete right bundle branch block * 8. Chronic fatigue * 9. She has not had any objective pulmonary testing * 10. 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 Status postcholecystectomy and hysterectomy * 12. No prior history of DVT or pulmonary embolism * 13. Left upper quadrant tenderness to deep palpation, significance unclear, defer to primary * 14. Hypertension-essential, at target * 15. Hyperlipidemia-I was able to subsequently review lab data from Dr. Bright's office, in September2022 total cholesterol 245 HDL 60 triglycerides 200 LDL 145 * 16. Hyperglycemia,? Diabetes, hemoglobin A1c 10/17/2022 6.3 * 17. Pulmonary function testing November 2022-there is a suggestion of restriction on spirometry butthis is not confirmed on measurement of static lung volumes, with a normal total lung capacity which is also without evidence of significant air trapping diffusion capacity is low normal and improves further after adjustment for alveolar volume, which could suggest some component of ventilation/perfusion mismatch. * 18. Echocardiogram December 2022-LVEF 60% impaired relaxation pattern of LV diastolic filling left atrial diameter 2.9 cm peak and mean gradients across aortic valve 11 and 5 respectively trace tricuspid regurgitation no pericardial effusion normal-sized aortic root LV end-systolic diameter 3.5 cm * 19. 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 * 20. BNP level 16 January 2023 [facility] 250 DO Work Phone: InstructionsNot on filedocumented in this encounter [employer] SystemReason for referral (narrative)* Reason DYSPNEA Diagnosis 1 Dyspnea (R06.00) Referral Organization [facility] Lela Velasquez Referring Provider First Name Awais Referring Provider Last Name Johanna Referring Provider Specialty Family Prac jennifer Referred Organization [facility] Referred Provider Dung Marcial Referred Address [address] ,[place], [place],[address] Referred Provider Specialty Cardiology Referral Priority Routine Referral Appointment Date 2022-11-22 General Notes Greta Camilo 2021 01:53:19 PM >referral sent [employer] Other Reason for referral (narrative)* Consultation (Routine) - Authorized Specialty Diagnoses / Procedures Referred By Shirley lopez Referred To Contact Cardiology Diagnoses Hypertensive heart disease without CHF Procedures Follow Up In Cardiology Terese Braxton MD [address] [facility] [address] [place] [address] Referral ID Status Reason Start Date Expiration Date V isits Requested Visits Authorized [id number] Authorized 08/01/2023 01/28/2024 1 1 [facility] Work Phone: Summary Purpose Family History No Family History Records Found Relationship Condition Age at Onset Recorded Date/T wilmer Not Specified Hypertension Unknown Malignant neoplasm of skin Unknown father Disorder of thyroid Unknown brother Malignant neoplasm of skin Unknown Unknown Family Member Name Dates Details Family history of hypertensi on: Mother, Father, Brother(V17.49, Z82.49) Status:Active Family history of diabetes m ellitus: Father(V18.0, Z83.3) Status:Active Family history of cerebrovas cular accident (CVA): Father(V17.1, Z82.3) Status:Active Family history of atrial fib rillation: Father(V17.49, Z82.49) Status:Active Unknown Family Member Name Dates Details Family history of hypertensi on: Mother, Father, Brother(V17.49, Z82.49) Status:Active Family history of diabetes m ellitus: Father(V18.0, Z83.3) Status:Active Family history of cerebrovas cular accident (CVA): Father(V17.1, Z82.3) Status:Active Family history of atrial fib rillation: Father(V17.49, Z82.49) Status:Active Unknown Family Member Name Dates Details Family history of hypertensi on: Mother, Father, Brother(V17.49, Z82.49) Status:Active Family history of diabetes m ellitus: Father(V18.0, Z83.3) Status:Active Family history of cerebrovas cular accident (CVA): Father(V17.1, Z82.3) Status:Active Family history of atrial fib rillation: Father(V17.49, Z82.49) Status:Active Unknown Family Member Name Dates Details Family history of hypertensi on: Mother, Father, Brother(V17.49, Z82.49) Status:Active Family history of diabetes m ellitus: Father(V18.0, Z83.3) Status:Active Family history of cerebrovas cular accident (CVA): Father(V17.1, Z82.3) Status:Active Family history of atrial fib rillation: Father(V17.49, Z82.49) Status:Active Unknown Family Member Name Dates Details Family history of hypertensi on: Mother, Father, Brother(V17.49, Z82.49) Status:Active Family history of diabetes m ellitus: Father(V18.0, Z83.3) Status:Active Family history of cerebrovas cular accident (CVA): Father(V17.1, Z82.3) Status:Active Family history of atrial fib rillation: Father(V17.49, Z82.49) Status:Active Unknown Family Member Name Dates Details Family history of hypertensi on: Mother, Father, Brother(V17.49, Z82.49) Status:Active Family history of diabetes m ellitus: Father(V18.0, Z83.3) Status:Active Family history of cerebrovas cular accident (CVA): Father(V17.1, Z82.3) Status:Active Family history of atrial fib rillation: Father(V17.49, Z82.49) Status:Active Unknown Family Member Name Dates Details Family history of hypertensi on: Mother, Father, Brother(V17.49, Z82.49) Status:Active Family history of diabetes m ellitus: Father(V18.0, Z83.3) Status:Active Family history of cerebrovas cular accident (CVA): Father(V17.1, Z82.3) Status:Active Family history of atrial fib rillation: Father(V17.49, Z82.49) Status:Active Unknown Family Member Name Dates Details Family history of hypertensi on: Mother, Father, Brother(V17.49, Z82.49) Status:Active Family history of diabetes m ellitus: Father(V18.0, Z83.3) Status:Active Family history of cerebrovas cular accident (CVA): Father(V17.1, Z82.3) Status:Active Family history of atrial fib rillation: Father(V17.49, Z82.49) Status:Active Unknown Family Member Name Dates Details Family history of hypertensi on: Mother, Father, Brother(V17.49, Z82.49) Status:Active Family history of diabetes m ellitus: Father(V18.0, Z83.3) Status:Active Family history of cerebrovas cular accident (CVA): Father(V17.1, Z82.3) Status:Active Family history of atrial fib rillation: Father(V17.49, Z82.49) Status:Active Advance Directives No Advanced Directives Records Found Advance Directive Response Recorded Date/ Time Advance Directives No April 26 8:59am Advance Directive Response Recorded Date/ Time Advance Directives No April 26 9:59am Latest Code Status on File Code Status Date Activated Date Inactivated Comments Full Code 11/20/2023 10:49 AM 11/21/2023 1:27 PM Chief Complaint and Reason for Visit Chief Complaint J01.90 R73.02 E78.00 Chief Complaint J01.90 R73.02 E78.00 R10.9 R10.13 R63.5 R53.83 Chief Complaint J01.90 R73.02 E78.00 R10.9 R10.13 R63.5 R53.83 abnormal ekg sob Chief Complaint J01.90 R73.02 E78.00 R10.9 R10.13 R63.5 R53.83 abnormal ekg sob E78.2 R06.02 R94.31 Chief Complaint abnormal ekg sob E78.2 R06.02 R94.31 I10 Chief Complaint E78.2 R06.02 R94.31 I10 Thrombocytopenia, delta storage pool disease Reason for Visit Delta storage pool d isease Thrombocytopenia Chief Complaint I10 Thrombocytopenia, delta storage pool disease E66.01 E78.2 R73.02 Reason for Visit Delta storage pool d isease Encounter for coordination of complex care Morbid obesity with BMI of 50.0-59.9, adult Thrombocytopenia Chief Complaint I10 Thrombocytopenia, 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 bright , chest pain.PAIGE MCCARTY is being seen for a 6 month follow-up of.PAIGE MCCARTY is being seen for a 6 month follow-up of. Reason for Referral Specialty Diagnoses / Procedures Referred By Contac t Referred To Contact Diagnoses Hyperlipemia, mixed Terese Braxton MD [address] [address] Referral ID Status Reason Start Date Expiration Date Visits Re quested Visits Authorized [id number] Closed 1 1 Specialty Diagnoses / Procedures Referred By Contac t Referred To Contact Cardiology Diagnoses Hypertensive heart disease without CHF Procedures Follow Up In Cardiology Terese Braxton MD [address] [place] [address] [address] [place] [address] Terese Braxton MD [address] [place] [address] [address] [place] [address] Referral ID Status Reason Start Date Expiration Date V isits Requested Visits Authorized [id number] Authorized 02/10/2024 02/09/2025 1 1 Additional Source Comments REASON FOR VISIT (unrecogniz ed section and content) Reason Comments Results Testing results Reason Comments Post-op 1 week bypass post-o p. 11-20-23 Reason Comments Follow-up 6m Specialty Diagnoses / Procedures Referred By Contac t Referred To Contact Cardiology Diagnoses Hypertensive heart disease without CHF Procedures Follow Up In Cardiology Terese Braxton MD 08 [place] [id number] Referral ID Status Reason Start Date Expiration Date Visits Re quested Visits Authorized [id number] Closed 08/01/2023 01/28/2024 1 1 INFORMATION SOURCE (unrecogn ized section and content) DATE CREATED AUTHOR 09/27/2022 [facility] DATE CREATED AUTHOR AUTHOR'S ORGANIZ ATION 05/04/2023 [facility] DATE CREATED AUTHOR AUTHOR'S ORGANIZ ATION 07/31/2023 [facility] DATE CREATED AUTHOR AUTHOR'S ORGANIZ ATION 08/04/2023 [facility] DATE CREATED AUTHOR AUTHOR'S ORGANIZ ATION 11/30/2023 [facility] DATE CREATED AUTHOR AUTHOR'S ORGANIZ ATION 02/15/2024 [facility] DATE CREATED AUTHOR AUTHOR'S ORGANIZ ATION 02/19/2024 [facility] Care Teams (unrecognized sec tion and content) Team Status: Active Member Role Status Dates Awais Bright , DO Primary Care Provider Active Team Status: Inactive Member Role Status Dates Awais Oberer , DO Primary Care Provider Active Terese Braxton MD Attending Provider Active Team Status: Active Member Role Status Dates Awais Obmalissar , DO Primary Care Provider, Referring Prov ider Active Abena Henao MD Attending Provider Active Team Status: Inactive Member Role Status Dates Awais Obmalissar , DO Primary Care Provider, Attending Prov ider Active Team Status: Inactive Member Role Status Dates Awais Oberer , DO Primary Care Provider, Attending Prov ider Active López Kidd MD Referring Provider Active [employer] Relationship Specialty [place] [address] [place] [address] [place] [address] PCP - General 11/22/22 [employer] Relationship Specialty Start Date End Date Johanna Awais [address] [place], [place] [id number] PCP - General Family Medicine 03/13/23 [employer] Relationship Specialty Start Date End Date Johanna Awais [address] [place] [id number] PCP - General Family Medicine 03/13/23 [employer] Relationship Specialty Start Date End Date Johanna AwaisDO kaylin [address] [place], [place] [id number] PCP - General Family Medicine 03/13/23 [employer] Relationship Specialty Start Date End Date Awais Bright DO [address] [facility]. [facility] [place] [address] PCP - General Family Medicine 02/10/24 Goals (unrecognized section and content) Goals may be documented in a n alternate section FOR RECORDS PERTAINING TO PATIENTS WHO ARE OR HAVE BEEN ENROLLED IN A CHEMICAL DEPENDENCY/SUBSTANCEABUSE PROGRAM, SOME INFORMATION MAY BE OMITTED. This clinical summary was aggregated from multiple sources. Caution should be exercised in using it in the provision of clinical care. This summary normalizes information from multiple sources, and as a consequence, information in this document may materially change the coding, format and clinical context of patient data. In addition, data may be omitted in some cases. CLINICAL DECISIONS SHOULD BE BASED ON THE PRIMARY CLINICAL RECORDS. [facility]. provides no warranty or guarantee of the accuracy or completeness of information in this document.
[2024-04-07 12:06] LABS: Anion Gap 13.3; BUN Creatinine Ratio 21.2; Calcium 9.6 mg/dL (8.5-10.1); Carbon Dioxide 24.3 mmol/L (21.0-32.0); Chloride 105 mmol/L (98-107); Estimated GFR (African America >60 (>=60); Estimated GFR (Non-African Ame >60 (>=60); Glucose 111 mg/dL (74-106); Potassium 3.6 mmol/L (3.5-5.1); Sodium 139 mmol/L (136-145)
== END 2024-04-07 10:07 | disposition home or self-care (01) ==
LOC: LAB 10:08
PROVIDERS: PCP Family Medicine; Visit Provider Internal Medicine Interventional Cardiology
DX: E87.6 Hypokalemia (principal); Z79.899 Other long term (current) drug therapy; I11.9 Hypertensive heart disease without heart failure
CPT/HCPCS: 36415; 80048

== ENCOUNTER 2024-04-07 10:12 | Outpatient (OUT) | payer OTHER, SELFPAY ==
--- OUTSIDE RECORDS SUMMARY | 2024-04-07 10:32 | XMS_ITS | CCD ---
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 Name Role Phone Oberer, Awais Unavailable [facility] ULLOA Primary Care Unavailable LAWRENCE, DR LEEROY Ascencio Admitting Unavailabl e LAWRENCE, DR LEEROY Ascencio Attending Unavailabl e LAWRENCE, DR LEEROY Ascencio Consulting Unavailabl e PARVIN PINTO Consulting Unavailable ROBBI CORREIA Consulting Unavailable Oberer, DO Awais Primary Care Provider [phone] Oberer, DO Awais Attending Provider [phone] Oberer, Awais L Unavailable Unavailable Unavailable MD Terese Braxton Attending Provider [phone] Oberer, DO Awais Primary Care Provider [phone] Oberer, DO Awais Attending Provider [phone] MD Terese Braxton Attending Provider [phone] Oberer, DO Awais Primary Care Provider Cathy Covarrubias Unavailable Oberer, DO Awais Primary Care Provider [phone] MD Terese Braxton Attending Provider [phone] Oberer, DO Awais Referring Provider [phone] MD Abena Henao Attending Provider Oberer, DO Awais Primary Care Provider MD Terese Braxton Attending Provider Oberer, DO Awais Attending Provider MD López Kidd Referring Provider Fox, Dr. Gudino Attending Unavailable Oberer, Dr. Awais Jolley Primary Care Unavailable Braxton, Dr. Gudino Referring Unavailable Braxton, Dr. Gudino Attending Unavailable Oberer, Dr. Awais Jolley Primary Care Unavailable Braxton, Dr. Gudino Attending Unavailable Oberer, Dr. Awais Jolley Primary Care Unavailable Braxton, Dr. Gudino Attending Unavailable Oberer, Dr. Awais Jolley Primary Care Unavailable Chaban, Kamal Unavailable Oberer, DO Awais Primary Care Provider MD Terese Braxton Attending Provider [phone] Terese Braxton Referring Unavailable Terese Braxton Attending [...] OBERER, AWAIS Primary Care Unavailable LÓPEZ KIDD Referring Unavailable OBERER, AWAIS [...] Facility (14 sources) Altretamine Drug Allergy Unknown [facility] Other (14 sources) Bacitracin Drug Allergy yeast infection [facility] Other (20 sources) Cefuroxime; Translations: [Ceftin TABS] Drug Allergy 01-31-20 Unknown, diarrhea, Rash [facility] (14 sources) Ibuprofen Drug Allergy insomnia [facility] Other (20 sources) pregabalin; Translations: [PREGABALIN] Drug Allergy 01-31-20 Abnormal Behavior [facility] (20 sources) Sertraline; Translations: [Zoloft] Drug Allergy 01-31-20 Confusion, Other (See Comments) [facility] (20 sources) traMADol; Translations: [Ultram] Drug Allergy 01-31-20 hives [facility] (14 sources) Beeswax Drug allergy Unknown [facility] Other (14 sources) Bees Propensity to adverse reactions swelling [facility] Other (9 sources) Sertraline Drug Allergy Unknown [facility] Other (12 sources) Aspirin; Translations: [ASPIRIN] Drug Allergy 08-12-20 15 unable to take because of clotting disorder [facility] Repository (1 source) bee venom Drug allergy (disorder) 11-01-19 17 [facility] (1 source) Cefuroxime Drug Allergy 08-12-20 15 [facility] Rep[facility] (3 sources) gabapentin; Translations: [GABAPENTIN] Drug Allergy 08-12-20 15 [facility] (1 source) pregabalin Drug Allergy 08-12-20 15 [facility] (1 source) Sertraline Drug Allergy 08-12-20 15 [facility] (1 source) traMADol Drug Allergy 08-12-20 15 [facility] (10 sources) Adhesive Tape; Translations: [adhesive tape] Allergy to substance 01-31-20 Redness of Skin [facility] (10 sources) venom-honey bee; Translations: [venom-honey bee] Allergy to substance 01-31-20 21 Swelling [facility] (10 sources) NSAIDS (Non-Steroidal Anti-Inflamma; Translations: [NSAIDS (Non-Steroidal Anti-Inflamma] Propensity to adverse reactions 01-31-20 21 unable to take because of clotting disorder [facility] (9 sources) apis mellifera venom Allergy to substance (finding) [facility] [employer] 250 DO Work Phone: (13 sources) Aspirin; Translations: [aspirin] Drug Allergy 07-31-20 Unknown, Other (See Comments) [facility] (14 sources) gabapentin; Translations: [gabapentin] Drug Allergy 02-08-20 23 Drowsiness, Other (See Comments) [facility] [employer] 250 DO Work Phone: (10 sources) natural latex rubber; Translations: [LATEX] Allergy to substance (finding) 07-31-20 23 [place] [address] Repository (9 sources) NSAIDs; Translations: [NSAIDs] Allergy to drug (finding) [facility] Work Phone: (9 sources) Sulfamethoxazole / Trimethoprim; Translations: [Bactrim] Drug Allergy [facility] 250 DO Work Phone: (7 sources) Cefuroxime; Translations: [CEFUROXIME AXETIL] Drug Allergy 02-08-20 [facility] Work Phone: (2 sources) Latex Propensity to adverse reactions 07-31-20 [facility] Work Phone: (7 sources) Non-steroidal anti-inflammatory agent; Translations: [NSAIDS (NON-STEROIDAL ANTI-INFLAMMATORY DRUG)] Propensity to adverse reactions 07-31-20 Unknown, Other (See Comments) [facility] Work Phone: (6 sources) Bee Venom Protein (Honey Bee); Translations: [BEE VENOM PROTEIN (HONEY BEE)] Propensity to adverse reactions 07-31-20 [facility] Work Phone: (2 sources) FLUoxetine; Translations: [FLUOXETINE] Drug Allergy 02-08-20 Other (See Comments) [facility] (4 sources) Other; Translations: [OTHER] Propensity to adverse reactions 11-06-19 Other (See Comments) [employer] (3 sources) Adhesive Tape-Silicones; Translations: [ADHESIVE TAPE-SILICONES] Propensity to adverse reactions to drug 11-20-19 [facility] [employer] (1 source) Aspirin Drug Allergy 11-19-19 [facility] Repository (1 source) Cefuroxime Drug Allergy 11-19-19 [facility] Repository (1 source) pregabalin Drug Allergy 11-19-19 [facility] Repository (1 source) Sertraline Drug Allergy 11-19-19 [facility] Repository (1 source) traMADol Drug Allergy 11-19-19 [facility] Repository Medications Current Medications Medication Drug Class(es) [...] 0 Active take 4 tablets by mo [facility] every twelve hours Acetaminophen 500 MG 4 tablets Orally BI D Active [id number] 200 actuat albuterol 0.09 mg/actuat metered dose [...] Aug, Active take 1 puff(s) by mo [facility] twice daily fluticasone (Flovent Diskus) 100 mcg/actuation [...] nausea). 30 tablet 1 11/26/2023 Active PNV,calcium 66-qtyc-npnfx acid ( VITAMIN PLUS LOW IRON) 27 mg iron- 1 mg tablet (1 source) Start: 12-16-2023 take 1 tablet by mouth in the morning PNV,calcium 27-qjkj-yvfad acid ( VITAMIN PLUS LOW IRON) 27 mg iron- 1 mg tablet Indications: Postsurgical malabsorption , Malnutrition following gastrointestinal surgery , History of Da-en-Y gastric bypass Take 1 tablet by mouth in the morning. 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] Onset: 2 Resolved: 2 [...] Translations: [Body mass index (BMI) 50.0-59.9, adult ([facility])] Onset: 3 Chronic Other nutritional; endocrine; and metabolic disorders (2 sources) Body mass index (BMI) 45.0-49.9, adult; Translations: [Body mass index (BMI) 45.0-49.9, adult ([facility])] Onset: 4 Chronic Other nutritional; endocrine; [...] 11-21-2023 Creatinine [Mass/Vol] 0.83 mg/dL Normal 0.40-1.00 [facility] Comment on above: Result Comment: METH OD TRACEABLE TO IDMS STANDARD Performed By: #### C BCA, CMP, FEPR, PINR, 95636-0, 2276-4, 2284-8, 2-9, 24239-1 #### [facility] ([id number]) [address] [place] [address] GFR/1.73 sq M.predicted among non-blacks MDRD (S/P/Bld) [Vol rate/Area] 83 mL/min/{1.73_m2} Normal >59 [facility] Comment on above: Result Comment: Reported eGFR is based on the CKD-EPI 2020 equation that does not use a race coefficient. Performed By: #### C BCA, CMP, FEPR, PINR, 29097-6, 2276-4, 2284-8, 2132-9, 86670-0 #### [facility] ([id number]) [address] [address], [address] [place] [address] HGB AND HCTon 11-21-2023 Hematocrit (Bld) [Volume fraction] 38.1 % Normal 35-47 [facility] Comment on above: Performed By: #### C BCA, CMP, FEPR, PINR, 31855-8, 2276-4, 2284-8, 2132-9, 86954-3 #### [facility] ([id number]) [address], [address] [place] [address] Hemoglobin (Bld) [Mass/Vol] 12.8 g/dL Normal 11.7-15.5 [facility] Comment on above: Performed By: #### C BCA, CMP, FEPR, PINR, 31173-1, 2276-4, 2284-8, 2132-9, 28252-7 #### [facility] ([id number]) [address], [address] [place] [address] PLATELET COUNT AND MPVon Platelet mean volume (Bld) [Entitic vol] 10.8 fL Normal 7-12 [facility] Comment on above: Performed By: #### C BCA, CMP, FEPR, PINR, 51959-2, 2276-4, 2284-8, 2132-9, 70876-9 #### [facility] ([id number]) [address], [address] [place] [address] Platelets (Bld) [#/Vol] 262 10*3/uL Normal 150-450 [facility] Comment on above: Performed By: #### C BCA, CMP, FEPR, PINR, 00212-2, 2276-4, 2284-8, 2132-9, 54388-2 #### [facility] ([id number]) [address], [address] [place] [address] XR CHEST 2 VWSon 11-13-2023 XR CHEST [...] [place] MD on 11/13/2023 11:33 AM Normal [facility] APTTon 11-06-2023 aPTT Coag (PPP) [Time] 35 s [facility] CBC AND AUTO DIFFon 11-06-19 ABSOLUTE BASOPHIL 0.0 X10E9/L Normal 0.0-0.2 [facility] Comment on above: Performed By: #### C BCA, CMP, FEPR, PINR, 80162-9, 2276-4, 2284-8, 2132-9, 55070-4 #### [facility] ([id number]) [address], [address] [place] [address] ABSOLUTE NEUTROPHIL 4.9 X10E9/L Normal 1.5-6.6 [facility] Comment on above: Performed By: #### C BCA, CMP, FEPR, PINR, 21811-1, 2276-4, 2284-8, 2-9, 14382-2 #### [facility] ([id number]) [address], [address] [place] [address] Basophils/100 WBC (Bld) 0.5 % Normal [facility] Comment on above: Performed By: #### C BCA, CMP, FEPR, PINR, 07071-6, 2276-4, 2284-8, 2-9, 38193-3 #### [facility] ([id number]) [address], [address] [place] [address] Eosinophils (Bld) [#/Vol] 0.1 10*3/uL Normal 0.0-0.4 [facility] Comment on above: Performed By: #### C BCA, CMP, FEPR, PINR, 68969-7, 2276-4, 2284-8, 2132-9, 15244-9 #### [facility] ([id number]) [address], [address] [place] [address] Eosinophils/100 WBC (Bld) 1.3 % Normal [facility] Comment on above: Performed By: #### C BCA, CMP, FEPR, PINR, 02450-3, 2276-4, 2284-8, 2132-9, 55874-7 #### [facility] ([id number]) [address] [place] [address] Erythrocyte distribution width (RBC) [Ratio] 13.8 % Normal 11.5-15.0 [facility] Comment on above: Performed By: #### C BCA, CMP, FEPR, PINR, 66263-1, 2276-4, 2284-8, 2132-9, 56569-4 #### [facility] ([id number]) [address] [address] Hematocrit (Bld) [Volume fraction] 39.8 % Normal 35-47 [facility] Comment on above: Performed By: #### C BCA, CMP, FEPR, PINR, 19430-6, 2276-4, 2284-8, 2132-9, 90930-6 #### [facility] ([id number]) [address] [place] [address] Hemoglobin (Bld) [Mass/Vol] 13.4 g/dL Normal 11.7-15.5 [facility] Comment on above: Performed By: #### C BCA, CMP, FEPR, PINR, 05693-9, 2276-4, 2284-8, 2132-9, 53956-4 #### [facility] ([id number]) [address] [address] Lymphocytes (Bld) [#/Vol] 2.0 10*3/uL Normal 1.0-3.5 [facility] Comment on above: Performed By: #### C BCA, CMP, FEPR, PINR, 25627-6, 2276-4, 2284-8, 2132-9, 96948-0 #### [facility] ([id number]) [address] [address] [place] [address] Lymphocytes/100 WBC (Bld) 27.6 % Normal [facility] Comment on above: Performed By: #### C BCA, CMP, FEPR, PINR, 18562-3, 2276-4, 2284-8, 2132-9, 72362-5 #### [facility] ([id number]) [address], [address] [place] [address] MCH (RBC) [Entitic mass] 29.0 pg Normal 27-34 [facility] Comment on above: Performed By: #### C BCA, CMP, FEPR, PINR, 09700-2, 2276-4, 2284-8, 213-9, 50644-7 #### [facility] ([id number]) [address], [address] [place] [address] MCHC (RBC) [Mass/Vol] 33.7 g/dL Normal 32-36 [facility] Comment on above: Performed By: #### C BCA, CMP, FEPR, PINR, 52452-7, 2276-4, 2284-8, 2131-9, 38647-3 #### [facility] ([id number]) [address], [address] [place] [address] MCV (RBC) [Entitic vol] 86 fL Normal 80-100 [facility] Comment on above: Performed By: #### C BCA, CMP, FEPR, PINR, 43244-6, 2276-4, 2284-8, 2131-9, 45452-5 #### [facility] ([id number]) [address], [address] [place] [address] Monocytes (Bld) [#/Vol] 0.4 10*3/uL Normal 0-0.9 [facility] Comment on above: Performed By: #### C BCA, CMP, FEPR, PINR, 60375-5, 2276-4, 2284-8, 2132-9, 22899-8 #### [facility] ([id number]) [address], [address] [place] [address] Monocytes/100 WBC (Bld) 4.8 % Normal [facility] Comment on above: Performed By: #### C BCA, CMP, FEPR, PINR, 09871-4, 2276-4, 2284-8, 2132-9, 16240-1 #### [facility] ([id number]) [address], [address] [place] [address] Neutrophils/100 WBC (Bld) 65.8 % Normal [facility] Comment on above: Performed By: #### C BCA, CMP, FEPR, PINR, 72977-8, 2276-4, 2284-8, 2132-9, 55597-0 #### [facility] ([id number]) [address], [facility] [address] [place] [address] Platelet mean volume (Bld) [Entitic vol] 10.3 fL Normal 7-12 [facility] Comment on above: Performed By: #### C BCA, CMP, FEPR, PINR, 58028-0, 2276-4, 2284-8, 2132-9, 47288-3 #### [facility] ([id number]) [address], [facility] [address] [place] [address] Platelets (Bld) [#/Vol] 248 10*3/uL Normal 150-450 [facility] Comment on above: Performed By: #### C BCA, CMP, FEPR, PINR, 03106-3, 2276-4, 2284-8, 2132-9, 74073-8 #### [facility] ([id number]) [address], [address] [place] [address] RBC COUNT 4.62 X10E12/L Normal 3.80-5.20 [facility] Comment on above: Performed By: #### C BCA, CMP, FEPR, PINR, 77137-4, 2276-4, 2284-8, 2132-9, 71825-0 #### [facility] ([id number]) [address], [address] [place] [address] WBC (Bld) [#/Vol] 7.4 10*3/uL Normal 4.0-11.0 [facility] Comment on above: Performed By: #### C BCA, CMP, FEPR, PINR, 05307-5, 2276-4, 2284-8, 2132-06, 58383-3 #### [facility] ([id number]) [address], [address] [place] [address] CBC auto differentialon 10-28 Basophils (Bld) [#/Vol] 0.0 10*3/uL [facility] Basophils/100 WBC (Bld) 0.5 % [facility] Eosinophils (Bld) [#/Vol] 0.1 10*3/uL [facility] Eosinophils/100 WBC (Bld) 1.3 % [facility] Erythrocyte distribution width (RBC) [Ratio] 13.8 % 11.5 - 15.0 % [facility] Hematocrit (Bld) [Volume fraction] 39.8 % 35 - 47 % [facility] Hemoglobin (Bld) [Mass/Vol] 13.4 g/dL 11.7 - 15.5 g/dL [facility] Lymphocytes (Bld) [#/Vol] 2.0 10*3/uL [facility] Lymphocytes/100 WBC (Bld) 27.6 % [facility] MCH (RBC) [Entitic mass] 29.0 pg 27 - 34 pg [facility] MCHC (RBC) [Mass/Vol] 33.7 g/dL 32 - 3 6 g/dL [facility] MCV (RBC) [Entitic vol] 86 fL 80 - 100 fL [facility] Monocytes (Bld) [#/Vol] 0.4 10*3/uL [facility] Monocytes/100 WBC (Bld) 4.8 % [facility] Neutrophils (Bld) [#/Vol] 4.9 10*3/uL [facility] Neutrophils/100 WBC (Bld) 65.8 % [facility] Platelet mean volume (Bld) [Entitic vol] 10.3 fL 7 - 12 fL [facility] Platelets (Bld) [#/Vol] 248 10*3/uL [facility] RBC (Bld) [#/Vol] 4.62 10*6/uL [facility] WBC corrected for nucl RBC Auto (Bld) [#/Vol] 7.4 [facility] COMPREHENSIVE METABOLIC PANE Josue 11-06-2023 Albumin [Mass/Vol] 4.3 g/dL Normal 3.2-5.3 [facility] Comment on above: Performed By: #### C BCA, CMP, FEPR, PINR, 14807-6, 2276-4, 2284-8, 2132-9, 16542-7 #### [facility] ([id number]) [address], [address] [place] [address] ALP [Catalytic activity/Vol] 61 U/L Normal 39-130 [facility] Comment on above: Performed By: #### C BCA, CMP, FEPR, PINR, 12170-8, 2276-4, 2284-8, 2132-9, 72952-1 #### [facility] ([id number]) [address], [address] [place] [address] ALT [Catalytic activity/Vol] 19 U/L Normal 0-31 [facility] Comment on above: Performed By: #### C BCA, CMP, FEPR, PINR, 47727-8, 2276-4, 2284-8, 2132-9, 23042-9 #### [facility] ([id number]) [address], [address] [place] [address] Anion gap [Moles/Vol] 9 mmol/L Normal 5-15 [facility] Comment on above: Performed By: #### C BCA, CMP, FEPR, PINR, 46891-7, 2276-4, 2284-8, 2132-9, 40507-6 #### [facility] ([id number]) [address], [address] [place] [address] AST [Catalytic activity/Vol] 16 U/L Normal 0-41 [facility] Comment on above: Performed By: #### C BCA, CMP, FEPR, PINR, 41182-3, 2276-4, 2284-8, 213-9, 44947-3 #### [facility] ([id number]) [address], [address] [place] [address] Bilirubin [Mass/Vol] 0.4 mg/dL Normal 0.3-1.2 [facility] Comment on above: Performed By: #### C BCA, CMP, FEPR, PINR, 32951-3, 2276-4, 2284-8, 2131-9, 82304-1 #### [facility] ([id number]) [address], [address] [place] [address] Calcium [Mass/Vol] 9.6 mg/dL Normal 8.5-10.5 [facility] Comment on above: Performed By: #### C BCA, CMP, FEPR, PINR, 40306-5, 2276-4, 2284-8, 2131-9, 56535-3 #### [facility] ([id number]) [address], [address] [place] [address] Chloride [Moles/Vol] 101 mmol/L Normal 98-109 [facility] Comment on above: Performed By: #### C BCA, CMP, FEPR, PINR, 95059-5, 2276-4, 2284-8, 2131-9, 40036-4 #### [facility] ([id number]) [address], [address] [place] [address] CO2 [Moles/Vol] 30 mmol/L Normal 22-32 [facility] Comment on above: Performed By: #### C BCA, CMP, FEPR, PINR, 47284-0, 2276-4, 2284-8, 2132-9, 03254-7 #### [facility] ([id number]) [address] [address] Creatinine [Mass/Vol] 0.71 mg/dL Normal 0.40-1.00 [facility] Comment on above: Result Comment: METH OD TRACEABLE TO IDMS STANDARD Performed By: #### C BCA, CMP, FEPR, PINR, 88622-7, 2276-4, 2284-8, 2132-9, 13998-5 #### [facility] ([id number]) [address] [address] eGFR (CKD-EPI) NON-RACE DEPENDENT >90 Normal >59 [facility] Comment on above: Result Comment: Reported eGFR is based on the CKD-EPI 2020 equation that does not use a race coefficient. Performed By: #### C BCA, CMP, FEPR, PINR, 38846-9, 2276-4, 2284-8, 2132-9, 67952-1 #### [facility] ([id number]) [address] [address] Glucose [Mass/Vol] 108 mg/dL High 65-99 [facility] Comment on above: Performed By: #### C BCA, CMP, FEPR, PINR, 60607-3, 2276-4, 2284-8, 2132-9, 20827-3 #### [facility] ([id number]) [address], [address] [place] [address] Potassium [Moles/Vol] 4.6 mmol/L Normal 3.5-5.0 [facility] Comment on above: Performed By: #### C BCA, CMP, FEPR, PINR, 09218-7, 2276-4, 2284-8, 2132-9, 45001-9 #### [facility] ([id number]) [address] [facility], [address] [place] [address] Protein [Mass/Vol] 7.5 g/dL Normal 6.0-8.0 [facility] Comment on above: Performed By: #### C BCA, CMP, FEPR, PINR, 30434-5, 2276-4, 2284-8, 2132-9, 40303-8 #### [facility] ([id number]) [address], [address] [place] [address] Sodium [Moles/Vol] 140 mmol/L Normal 134-146 [facility] Comment on above: Performed By: #### C BCA, CMP, FEPR, PINR, 89176-2, 2276-4, 2284-8, 2132-9, 84015-2 #### [facility] ([id number]) [address] [facility], [address] [place] [address] Urea nitrogen [Mass/Vol] 22 mg/dL Normal 5-23 [facility] Comment on above: Performed By: #### C BCA, CMP, FEPR, PINR, 13894-4, 2276-4, 2284-8, 2132-9, 96669-0 #### [facility] ([id number]) [address], [address] [place] [address] Cobalamin (Vitamin B12) [Mas s/Vol]on 11-06-2023 [facility] Comprehensive metabolic pane josue 11-06-2023 Albumin [Mass/Vol] 4.3 g/dL 3.2 - 5.3 g/dL [facility] ALP [Catalytic activity/Vol] 61 U/L 39 - 130 U/L [facility] ALT No additional P-5'-P [Catalytic activity/Vol] 19 U/L 0 - 31 U/L [facility] Anion gap [Moles/Vol] 9 mmol/L 5 - 15 mmol/L [facility] AST [Catalytic activity/Vol] 16 U/L 0 - 41 U/L [facility] Bilirubin [Mass/Vol] 0.4 mg/dL 0.3 - 1 .2 mg/dL [facility] Calcium [Mass/Vol] 9.6 mg/dL 8.5 - 10. 5 mg/dL [facility] Chloride [Moles/Vol] 101 mmol/L 98 - 10 9 mmol/L [facility] CO2 [Moles/Vol] 30 mmol/L 22 - 32 mmol/L [facility] Creatinine [Mass/Vol] 0.71 mg/dL 0.40 - 1.00 mg/dL [facility] Comment on above: METHOD TRACEABLE TO [facility] STANDARD eGFR (CKD-EPI)non-race dependent - PINF [facility] Comment on above: Reported eGFR is based on the CKD-EPI 2020 equation that does not use a race coefficient. Glucose [Mass/Vol] 108 mg/dL High 65 - 99 mg/dL [facility] Interpretation and review of laboratory results Abnormal [facility] Potassium [Moles/Vol] 4.6 mmol/L 3.5 - 5.0 mmol/L [facility] Protein [Mass/Vol] 7.5 g/dL 6.0 - 8.0 g/dL [facility] Sodium [Moles/Vol] 140 mmol/L 134 - 146 mmol/L [facility] Urea nitrogen [Mass/Vol] 22 mg/dL 5 - 23 mg/dL [facility] ECG 12 leadon 11-06-2023 TRACEMASTERVUE [facility] FERRITINon 11-06-2023 Ferritin [Mass/Vol] 189 ng/mL Normal 11-307 [facility] Comment on above: Performed By: #### C BCA, CMP, FEPR, PINR, 66458-3, 2276-4, 2284-8, 2132-9, 76486-7 #### [facility] ([id number]) [address], [address] [place] [address] Ferritinon 11-06-2023 Ferritin [Mass/Vol] 189 ng/mL 11 - 307 ng/mL [facility] Folateon 11-06-2023 Folate [Mass/Vol] ng/mL 5.8 - PINF ng/mL [facility] Comment on above: NEW REFERENCE RANGE Folate [Mass/Vol]on 11-06-19 24 [facility] FOLIC ACID >25.0 Normal >5.8 [facility] Comment on above: Result Comment: NEW REFERENCE RANGE Performed By: #### C BCA, CMP, FEPR, PINR, 82122-2, 2276-4, 2284-8, 2132-9, 63217-3 #### [facility] ([id number]) [address], [address] [place] [address] IRON PROFILEon 11-06-2023 Iron [Mass/Vol] 100 ug/dL Normal 50-170 [facility] Comment on above: Performed By: #### C BCA, CMP, FEPR, PINR, 67207-9, 2276-4, 2284-8, 2132-9, 33662-0 #### [facility] ([id number]) [address], [address] [place] [address] IRON BINDING 305 ug/dL Normal 250-425 [facility] Comment on above: Performed By: #### C BCA, CMP, FEPR, PINR, 67853-0, 2276-4, 2284-8, 2132-9, 34675-8 #### [facility] ([id number]) [address], [address] [place] [address] IRON SATURATION 33 % SATURATION Normal 15-50 [facility] Comment on above: Performed By: #### C BCA, CMP, FEPR, PINR, 81771-9, 2276-4, 2284-8, 2132-9, 10400-3 #### [facility] ([id number]) [address], [address] [place] [address] Iron and TIBCon 11-06-2023 Iron [Mass/Vol] 100 ug/dL 50 - 170 ug/dL [facility] Iron binding capacity [Mass/Vol] 305 ug/dL 250 - 425 ug/dL [facility] Iron saturation [Mass fraction] 33 [facility] No Panel Informationon 11-06 [facility] PROTIME AND INRon 11-06-2023 INR Coag (PPP) [Relative time] 1.1 {INR} Normal 0.8-1.1 [facility] Comment on above: Performed By: #### C BCA, CMP, FEPR, PINR, 01890-7, 2276-4, 2284-8, 2132-9, 38341-4 #### [facility] ([id number]) [address], [address] [place] [address] PT Coag (PPP) [Time] 12.8 s Normal 9.8-13.2 [facility] Comment on above: Performed By: #### C BCA, CMP, FEPR, PINR, 17337-9, 2276-4, 2284-8, 2132-9, 91909-4 #### [facility] ([id number]) [address], [address] [place] [address] Protime & INRon 11-06-2023 INR Coag (PPP) [Relative time] 1.1 {INR} [facility] PT Coag (PPP) [Time] 12.8 s [facility] Thiamine (Bld) [Mass/Vol]on 11-06-2023 THIAMIN VITAMIN B1 See Below Normal [facility] Comment on above: Result Comment: NOTE [...] and its performance characteristics determined by [facility]'s [facility] Pathology and Laboratory Medicine [place] (RT-PLMI). It has not been cleared or approved by the FDA. RT-[facility] is regulated under CLIA as qualified to perform high-complexity testing. This test is used for clinical purposes. It should not be regarded as investigational or for research. Test Performed By: [place] [address] Scrap Burner: Alfredo Chu III, M.D. CLIA #[id number] Performed By: #### C BCA, CMP, FEPR, PINR, 82768-1, 2276-4, 2284-8, 2131-9, 10144-5 #### [facility] ([id number]) [address] [address] [facility] [address], [address] [place] [address] VITAMIN B12on 11-06-2023 Cobalamin (Vitamin B12) [Mass/Vol] 737 pg/mL Normal 180-914 [facility] Comment on above: Performed By: #### C BCA, CMP, FEPR, PINR, 88696-8, 2276-4, 2284-8, 9, 46986-2 #### [facility] ([id number]) [address] [facility] [facility], [address] [place] [address] Vitamin B12on 11-06-2023 Cobalamin (Vitamin B12) [Mass/Vol] 737 pg/mL 180 - 914 pg/mL [facility] Vitamin D 25 hydroxyon 11-06 Vitamin D+Metabolites [Mass/Vol] 26.4 ng/mL Low 30 - 100 ng/mL [facility] Comment on above: Vitamin D status 25 [place] Vitamin D Deficiency <20 ng/mL Insufficiency 20-29 ng/mL Sufficiency 30-100 ng/mL Toxicity >100 ng/mL NOTE: A pediatric reference range has not been established by the condenser winder of this kit. The [place] [employer] recommends a Vitamin D level of = or >20ng/mL in infants and children. Vitamin D+Metabolites [Mass/ Vol]on 11-06-2023 Interpretation and review of laboratory results Abnormal [facility] VITAMIN D 25 HYD TOT 26.4 ng/mL Low 30-100 [facility] Comment on above: Result Comment: Vitamin D status 25 [place] Vitamin D Deficiency <20 ng/mL Insufficiency 20-29 ng/mL Sufficiency 30-100 ng/mL Toxicity >100 ng/mL NOTE: A pediatric reference range has not been established by the condenser winder of this kit. The [place] [employer] recommends a Vitamin D level of = or >20ng/mL in infants and children. Performed By: #### C BCA, CMP, FEPR, PINR, 39559-5, 2276-4, 2284-8, 2131-9, 61905-3 #### [facility] ([id number]) [address] [facility] [facility] [address] [place] [address] aPTT Coag (PPP) [Time]on aPTT Coag (Bld) [Time] 35 s Normal 26-37 [facility] Comment on above: Performed By: #### C BCA, CMP, FEPR, PINR, 07624-9, 2276-4, 2284-8, 2131-9, 26187-2 #### [facility] ([id number]) [address] [facility] [facility], [address] [place] [address] Basic Metabolic Panelon 06-29 Anion gap [Moles/Vol] 11.9 mmol/L Normal 6.0-15.0 [facility] Comment on above: Order Comment: PT IS FASTING Performed By: #### A ST, BNP, ALT, LIPID #### [facility] [address] [place] [address] [facility] Calcium [Mass/Vol] 9.8 mg/dL Normal 8.6-10.3 [facility] Comment on above: Order Comment: PT IS FASTING Result Comment: PERF ORMED BY: [place] [address] PATHOLOGIST EMPLOYMENT OFFICE CLERK SILVINA MONTESINOS M.D. Performed By: #### A ST, BNP, ALT, LIPID #### [facility] [address] Chloride [Moles/Vol] 105 mmol/L Normal 98-107 [facility] Comment on above: Order Comment: PT IS FASTING Performed By: #### A ST, BNP, ALT, LIPID #### [facility] [address] CO2 [Moles/Vol] 28.6 mmol/L Normal 21.0-31.0 [facility] Comment on above: Order Comment: PT IS FASTING Performed By: #### A ST, BNP, ALT, LIPID #### [address] Creatinine [Mass/Vol] 0.76 mg/dL Normal 0.60-1.20 [facility] Comment on above: Order Comment: PT IS FASTING Performed By: #### A ST, BNP, ALT, LIPID #### [place] [address] [place] GFR/1.73 sq M.predicted MDRD (S/P/Bld) [Vol rate/Area] mL/min/{1.73_m2} Normal [facility] Comment on above: Order Comment: PT IS FASTING Performed By: #### A ST, BNP, ALT, LIPID #### [place] [address] [place] Glucose [Mass/Vol] 120 mg/dL High 70-100 [facility] Comment on above: Order Comment: PT IS FASTING Result Comment: [place] Glucose Reference Range is dependent on time and content of last meal. Glucose of more than 200 mg/dL in a nonstressed, ambulatory subject supports the diagnosis of Diabetes Mellitus. ADA recommended reference range Performed By: #### A ST, BNP, ALT, LIPID #### [address] Potassium [Moles/Vol] 4.5 mmol/L Normal 3.5-5.1 [facility] Comment on above: Order Comment: PT IS FASTING Performed By: #### A ST, BNP, ALT, LIPID #### [facility] [address] [place] [id number] [place] Sodium [Moles/Vol] 141 mmol/L Normal 136-145 [facility] Comment on above: Order Comment: PT IS FASTING Performed By: #### A ST, BNP, ALT, LIPID #### [facility] [address] [place] [id number] [place] Urea nitrogen [Mass/Vol] 19 mg/dL Normal 7-25 [facility] Comment on above: Order Comment: PT IS FASTING Performed By: #### A ST, BNP, ALT, LIPID #### [facility] [address] Calcium [Mass/volume] in Ser um or PlasmaOrdered By: Terese Braxton on 07-25-2023 Calcium [Mass/Vol] 9.8 mg/dL 8.6-10.3 [facility] Carbon dioxide, total [Moles /volume] in Serum or PlasmaOrdered By: Terese Braxton on 07-25-2023 CO2 [Moles/Vol] 28.6 mmol/L 21.0-31.0 [facility] Chloride [Moles/volume] in S anh or PlasmaOrdered By: Terese Braxton on 07-25-2023 Chloride [Moles/Vol] 105 mmol/L 98-107 [facility] Creatinine [Mass/volume] in Serum or PlasmaOrdered By: Terese Braxton on 07-25-2023 Creatinine [Mass/Vol] 0.76 mg/dL 0.60-1.20 [facility] Glucose [Mass/volume] in Ser um or PlasmaOrdered By: Terese Braxton on 07-25-2023 Glucose [Mass/Vol] 120 mg/dL 70-100 [facility] Comment on above: ADA recommended refe rence rangeRandom Glucose Reference Range is dependent on time and content of last meal. Glucose of more than 200 mg/dL in a nonstressed, ambulatory subject supports the diagnosis of Diabetes Mellitus. No Panel InformationOrdered By: Terese Braxton on 07-25-2023 Estimated GFR (CKD-EPI) > 60.0 mL/Min [facility] Creatinine Clearance (Chem N/A [facility] No Panel on 07-25 > 60.0 Normal [facility] 250 DO Work Phone: 11.9\S\11.9 Normal 6.0-15.0 [facility] 250 DO Work Phone: 9.8\S\9.8 Normal 8.6-10.3 [facility] 250 DO Work Phone: Comment on above: PERFORMED BY:[place] [address] [place] [id number] MEDICAL DIRECTORSILVINA MONTESINOS M.D. 28.6\S\28.6 Normal 21.0-31.0 [facility] 250 DO Work Phone: 105\S\105 Normal 98-107 [facility] 250 DO Work Phone: 4.5\S\4.5 Normal 3.5-5.1 [facility] 250 DO Work Phone: 141\S\141 Normal 136-145 [facility] 250 DO Work Phone: 0.76\S\0.76 Normal 0.60-1.20 [facility] 250 DO Work Phone: 19\S\19 Normal 7-25 [facility] 250 DO Work Phone: 120\S\120 above high threshold 70-100 [facility] 250 DO Work Phone: Comment on above: Random Glucose Refer ence Range is dependent on time and content of last meal. Glucose of more than 200 mg/dL in a nonstressed, ambulatory subject supports the diagnosis of Diabetes Mellitus. ADA recommended reference range Potassium [Moles/volume] in Serum or PlasmaOrdered By: Terese Braxton on 07-25-2023 Potassium [Moles/Vol] 4.5 mmol/L 3.5-5.1 [facility] Serum or plasma anion gap de terminationOrdered By: Terese Braxton on 07-25-2023 Anion gap [Moles/Vol] 11.9 mmol/L 6.0-15.0 [facility] Sodium [Moles/volume] in Ser um or PlasmaOrdered By: Terese Braxton on 07-25-2023 Sodium [Moles/Vol] 141 mmol/L 136-145 [facility] Urea nitrogen [Mass/volume] in Serum or PlasmaOrdered By: Terese Braxton on 07-25-2023 Urea nitrogen [Mass/Vol] 19 mg/dL 05-21 [facility] Cardiovasc Arrhythmia Result son 07-23-2023 Cardiovas Arrhythmia Results Reason For Visit Reason for Visit: Holter Monitor: PAIGE is here for the application of a 48 hour Holter monitor. Ordering Physician: Dr. Terese Braxton MD Diagnosis: palps NO equipment agreement signed. PAIGE understands monitor is to be returned on: 07/25/2023 Monitor number [id number] applied. Holter monitor printed and placed on [...] Aug 01 2023 3:41PM EST (Author) Normal [facility] Office Visit (Cardiology)on 07-15-2023 Follow-up visit Diagnoses/Problems [...] 50.0-59.9, adult Basic Metabolic Panel; Status:Active; Requested for:63Tjc0268; Hypertension Start: Lisinopril 40 MG Oral Tablet; TAKE 1 TABLET DAILY Morbid obesity with BMI of 50.0-59.9, adult Healthy Weight Tips; Status:Complete; Done: 35Hnd9000 Some eating tips that can help you lose weight.; Status:Complete; Done: 50Dhl2523 Palpitations Start: Magnesium Oxide 400 MG Oral Tablet; TAKE 1 TABLET TWICE DAILY IO EKG Electrocardiogram- 12 Lead; Status:Complete; Done: 85Htb4269 IO Holter Monitor up to 48 Hrs; Status:Active - Perform Order; Requested for:10Hrm8285; SocHx: Current every day smoker You need to quit smoking.; Status:Complete; Done: 33Aqd3198 Tobacco Use Screening; Status:Complete; Done: 72Oem4666 Patient Instructions Please bring all medicines, vitamins, [...] Scheduled for bariatric surgery next month in [place], going through different aspects of work-up. Has [...] normal-sized aort (more content not included)... Normal [facility] Tobacco Screening.on 023 Tobacco use status CP a) Yes -[facility] 250 DO Work Phone: Tobacco Screening. Yes [facility] 250 DO Work Phone: XR elbow RT min 3V*on 2022 XR elbow RT min 3V* [facility] [place] [address] [place] [address] XRay Report Signed Patient: Paige Mccarty MR#: [id number] : 1965 Acct:[id number] Age/Sex: 58 / F ADM Date: 04/23/23 Loc: [facility] Room: Type: [facility] Attending Dr: Awais Bright DO Copies to: [...] Bishnu Correia M.D.04/23/2023 1:33 PM Dictation Location: [place] [address] Transcribed By: [facility] 04/23/23 1333 Dictated By: Bishnu Correia DO 04/23/23 1325 Signed By: 04/23/23 1333 Normal [facility] XR elbow RT min 3V* [facility] [employer] Other XR elbow RT min 3V* [facility] [employer] Other XR elbow RT min 3V* [address] [facility] [employer] Other XR elbow RT min 3V* [place] [address] [employer] Other XR elbow RT min 3V* XRay Report [facility] [employer] Other XR elbow RT min 3V* Signed [employer] Other XR elbow RT min 3V* Patient: Paige Mccarty MR#: [id number] [employer] Other XR elbow RT min 3V* : 1965 Acct:[id number] [employer] Other XR elbow RT min 3V* Age/Sex: 58 / F ADM Date: 04/23/23 [employer] Other XR elbow RT min 3V* [facility] Room: Typ e: [facility] [employer] Other XR elbow RT min 3V* Attending Dr: Awais Bright DO [employer] Other XR elbow RT min 3V* Copies to: Awais Bright DO [employer] Other XR elbow RT min 3V* Ordering Provider: Deshawn Bright DO [employer] Other XR elbow RT min 3V* Date of Service: 04/23/23 [employer] Other XR elbow RT min 3V* XR/XR elbow RT min 3V*: Fall with injury [employer] Other XR elbow RT min 3V* 4 views RIGHTelbow p silvia film [employer] Other XR elbow RT min 3V* COMPARISON :None [employer] Other XR elbow RT min 3V* HISTORY: Fell 2 elieser hs ago. Medial RIGHT elbow pain [employer] Other XR elbow RT min 3V* ACUTE FINDINGS: None [employer] Other XR elbow RT min 3V* DEGENERATIVE CHANGE: Unremarkable [employer] Other XR elbow RT min 3V* SOFT TISSUE FINDINGS : 3 mm soft tissue radiodensity near the olecranon present. This likely [employer] Other XR elbow RT min 3V* incidental. [facility] [employer] Other XR elbow RT min 3V* JOINT EFFUSION: None [employer] Other XR elbow RT min 3V* POSTOP CHANGES: None [employer] Other XR elbow RT min 3V* BONE MINERALIZATION: Adequate [employer] Other XR elbow RT min 3V* X R/XR elbow RT min 3V* [employer] Other XR elbow RT min 3V* IMPRESSION: No acute fracture. [employer] Other XR elbow RT min 3V* Impression dictated by: Bishnu Correia M.D.04/23/2023 1:33 PM [employer] Other XR elbow RT min 3V* Dictation Location: [place] [address] [employer] Other XR elbow RT min 3V* Transcribed By: JOE 04/23/23 1333 [employer] Other XR elbow RT min 3V* Dictated By: Bishnu Correia DO 04/23/23 1325 [employer] Other XR elbow RT min 3V* Signed By: [employer] Other XR elbow RT min 3V* 04/23/23 1333 [facility] Other A1C with Estimated Average G valerio 04-15-2023 Glucose [Mass/Vol] 134 mg/dL Normal [facility] Comment on above: Order Comment: OK TO DO NOW PER GRETA GAUTAM Reason for Exam Impaired glucose tolerance Result Comment: PERF ORMED BY: [place] [address] PATHOLOGIST EMPLOYMENT OFFICE CLERK SILVINA MONTESINOS M.D. Performed By: #### A 1C [facility] eA #### [facility] [address] HbA1c (Bld) [Mass fraction] 6.3 % High 4.3-5.6 [facility] Comment on above: Order Comment: OK TO DO NOW PER GRETA GAUTAM Reason for Exam Impaired glucose tolerance Result Comment: Incr eased risk for diabetes: 5.7 - 6.4 diabetes: >6.4 glycemic control for adults with diabetes: <7.0 Performed By: #### A 1C [facility] eA #### [facility] [address] Alanine aminotransferase [En zymatic activity/volume] in Serum or PlasmaOrdered By: Awais Bright on 04-15-2023 ALT [Catalytic activity/Vol] 16 U/L 7-52 [facility] Albumin [Mass/volume] in Ser um or Plasma by Bromocresol green (BCG) dye binding methoOrdered By: Awais Bright on 04-15-2023 Albumin BCG dye [Mass/Vol] 4.1 g/dL 3.5-5.7 [facility] Alkaline phosphatase [Enzyma tic activity/volume] in Serum or PlasmaOrdered By: Awais Bright on 04-15-2023 ALP [Catalytic activity/Vol] 59 U/L 34-104 [facility] Aspartate aminotransferase [ Enzymatic activity/volume] in Serum or PlasmaOrdered By: Awais Bright on 04-15-2023 AST [Catalytic activity/Vol] 14 U/L 13-39 [facility] Basic Metabolic Panelon 03-28 Anion gap [Moles/Vol] 12.8 mmol/L Normal 6.0-15.0 [facility] Comment on above: Order Comment: PT FA STED 12 HOURS OK TO DO NOW PER GRETA RN Reason for Exam Mixed hyperlipidemia Performed By: #### B MP, LIPID #### [facility] [address] Calcium [Mass/Vol] 9.6 mg/dL Normal 8.6-10.3 [facility] Comment on above: Order Comment: PT FA STED 12 HOURS OK TO DO NOW PER GRETA RN Reason for Exam Mixed hyperlipidemia Performed By: #### B MP, LIPID #### [facility] [address] Chloride [Moles/Vol] 104 mmol/L Normal 98-107 [facility] Comment on above: Order Comment: PT FA STED 12 HOURS OK TO DO NOW PER GRETA RN Reason for Exam Mixed hyperlipidemia Performed By: #### B MP, LIPID #### [facility] [address] [place] [address] [place] CO2 [Moles/Vol] 26.3 mmol/L Normal 21.0-31.0 [facility] Comment on above: Order Comment: PT FA STED 12 HOURS OK TO DO NOW PER GRETA RN Reason for Exam Mixed hyperlipidemia Performed By: #### B MP, LIPID #### [facility] [address] [place] [address] [place] Creatinine [Mass/Vol] 0.75 mg/dL Normal 0.60-1.20 [facility] Comment on above: Order Comment: PT FA STED 12 HOURS OK TO DO NOW PER GRETA RN Reason for Exam Mixed hyperlipidemia Performed By: #### B MP, LIPID #### [facility] [address] [place] [address] [place] GFR/1.73 sq M.predicted MDRD (S/P/Bld) [Vol rate/Area] mL/min/{1.73_m2} [facility] Comment on above: Order Comment: PT FA STED 12 HOURS OK TO DO NOW PER GRETA RN Reason for Exam Mixed hyperlipidemia Performed By: #### B MP, LIPID #### [facility] [address] [place] [address] [place] Glucose [Mass/Vol] 110 mg/dL High 70-100 [facility] Comment on above: Order Comment: PT FA STED 12 HOURS OK TO DO NOW PER GRETA RN Reason for Exam Mixed hyperlipidemia Result Comment: [place] Glucose Reference Range is dependent on time and content of last meal. Glucose of more than 200 mg/dL in a nonstressed, ambulatory subject supports the diagnosis of Diabetes Mellitus. ADA recommended reference range Performed By: #### B MP, LIPID #### [facility] [address] Potassium [Moles/Vol] 4.1 mmol/L Normal 3.5-5.1 [facility] Comment on above: Order Comment: PT FA STED 12 HOURS OK TO DO NOW PER GRETA RN Reason for Exam Mixed hyperlipidemia Performed By: #### B MP, LIPID #### [facility] [address] Sodium [Moles/Vol] 139 mmol/L Normal 136-145 [facility] Comment on above: Order Comment: PT FA STED 12 HOURS OK TO DO NOW PER GRETA RN Reason for Exam Mixed hyperlipidemia Performed By: #### B MP, LIPID #### [facility] [address] Urea nitrogen [Mass/Vol] 27 mg/dL High 7-25 [facility] Comment on above: Order Comment: PT FA STED 12 HOURS OK TO DO NOW PER GRETA RN Reason for Exam Mixed hyperlipidemia Performed By: #### B MP, LIPID #### [facility] [address] [place] [address] [place] Basophils Auto (Bld) [#/Vol] Ordered By: Awais Bright on 04-15-2023 Basophils (Bld) [#/Vol] 0.0 10*3/uL 0.0-0.2 [facility] Basophils/100 WBC Auto (Bld) Ordered By: Awais Bright on 04-15-2023 Basophils/100 WBC (Bld) 0.6 % . [facility] Bilirubin.direct [Mass/volum e] in Serum or PlasmaOrdered By: Awais Bright on 04-15-2023 Bilirubin.direct [Mass/Vol] 0.10 mg/dL 0.03-0.18 [facility] Bilirubin.total [Mass/volume ] in Serum or PlasmaOrdered By: Awais Bright on 04-15-2023 Bilirubin [Mass/Vol] 0.5 mg/dL 0.3-1.0 [facility] Blood thiamine measurement ( moles/volume)Ordered By: López Kidd on 04-15-2023 Thiamine (Bld) [Moles/Vol] 153.0 nmol/L 66.5-200.0 [facility] Comment on above: This test was devcaseyo ped and its performance characteristicsdetermined by [employer]. It has not been cleared orapproved by the Food and Drug Administration.Performed at: [facility] [employer] [id number] Director: Argenis Reynolds MD, Phone: [phone] Calcium [Mass/volume] in Ser um or PlasmaOrdered By: Awais Bright on 04-15-2023 Calcium [Mass/Vol] 9.6 mg/dL 8.6-10.3 [facility] Carbon dioxide, total [Moles /volume] in Serum or PlasmaOrdered By: Awais Bright on 04-15-2023 CO2 [Moles/Vol] 26.3 mmol/L 21.0-31.0 [facility] Chloride [Moles/volume] in S anh or PlasmaOrdered By: Awais Bright on 04-15-2023 Chloride [Moles/Vol] 104 mmol/L 98-107 [facility] Cholesterol [Mass/volume] in Serum or PlasmaOrdered By: Awais Bright on 04-15-2023 Cholesterol [Mass/Vol] 190 mg/dL 140-200 [facility] Comment on above: Chol less than 200 m g/dl low riskChol 201-239 mg/dl borderline riskChol 240 mg/dl and greater high risk Cholesterol in LDL Calc [Mas s/Vol]Ordered By: Awais Bright on 04-15-2023 Cholesterol in LDL [Mass/Vol] 109 mg/dL 0-100 [facility] Comment on above: LDL ATP III CLASSIFI CATIONLDL less than 100 mg/dL OptimalLDL 100-129 mg/dL Near or above optimalLDL 130-159 mg/dL Borderline highLDL 160-189 mg/dL HighLDL greater than 189 mg/dL Very high Cholesterol in VLDL Calc [Ma ss/Vol]Ordered By: Awais Bright on 04-15-2023 Cholesterol in VLDL [Mass/Vol] 32 mg/dL [facility] Complete Blood Count Auto Di ffon 04-15-2023 Basophils (Bld) [#/Vol] 0.0 10*3/uL Normal 0.0-0.2 [facility] Comment on above: Order Comment: OK TO DO NOW PER GRETA RN Reason for Exam Mixed hyperlipidemia Result Comment: PERF ORMED BY: [place] [address] PATHOLOGIST EMPLOYMENT OFFICE CLERK SILVINA MONTESINOS M.D. Performed By: #### C BC #### [facility] [address] [place] [address] [place] Basophils/100 WBC (Bld) 0.6 % Normal . [facility] Comment on above: Order Comment: OK TO DO NOW PER GRETA RN Reason for Exam Mixed hyperlipidemia Performed By: #### C BC #### [facility] [address] [place] [address] [place] Eosinophils (Bld) [#/Vol] 0.1 10*3/uL Normal 0.0-0.45 [facility] Comment on above: Order Comment: OK TO DO NOW PER GRETA RN Reason for Exam Mixed hyperlipidemia Performed By: #### C BC #### [facility] [address] [place] [address] [place] Eosinophils/100 WBC (Bld) 1.2 % Normal . [facility] Comment on above: Order Comment: OK TO DO NOW PER GRETA RN Reason for Exam Mixed hyperlipidemia Performed By: #### C BC #### [facility] [address] [place] [address] Erythrocyte distribution width (RBC) [Ratio] 13.8 % Normal 11.9-15.3 [facility] Comment on above: Order Comment: OK TO DO NOW PER GRETA RN Reason for Exam Mixed hyperlipidemia Performed By: #### C BC #### [facility] [address] Hematocrit (Bld) [Volume fraction] 40.8 % Normal 34.0-46.4 [facility] Comment on above: Order Comment: OK TO DO NOW PER GRETA RN Reason for Exam Mixed hyperlipidemia Performed By: #### C BC #### [facility] [address] Hemoglobin (Bld) [Mass/Vol] 13.6 g/dL Normal 11.8-15.4 [facility] Comment on above: Order Comment: OK TO DO NOW PER GRETA RN Reason for Exam Mixed hyperlipidemia Performed By: #### C BC #### [address] Lymphocytes (Bld) [#/Vol] 1.9 10*3/uL Normal 1.00-4.8 [facility] Comment on above: Order Comment: OK TO DO NOW PER GRETA RN Reason for Exam Mixed hyperlipidemia Performed By: #### C BC #### [address] Lymphocytes/100 WBC (Bld) 25.1 % Normal . [facility] Comment on above: Order Comment: OK TO DO NOW PER GRETA RN Reason for Exam Mixed hyperlipidemia Performed By: #### C BC #### [address] MCH (RBC) [Entitic mass] 28.5 pg Normal 24.7-34.3 [facility] Comment on above: Order Comment: OK TO DO NOW PER GRETA RN Reason for Exam Mixed hyperlipidemia Performed By: #### C BC #### [address] MCV (RBC) [Entitic vol] 85.7 fL Normal 80-100 [facility] Comment on above: Order Comment: OK TO DO NOW PER GRETA RN Reason for Exam Mixed hyperlipidemia Performed By: #### C BC #### [address] Mean Corpuscular HGB Conc 33.2 g/dL Normal 32.0-35.0 [facility] Comment on above: Order Comment: OK TO DO NOW PER GRETA RN Reason for Exam Mixed hyperlipidemia Performed By: #### C BC #### [facility] [address] Monocytes (Bld) [#/Vol] 0.4 10*3/uL Normal 0.0-0.8 [facility] Comment on above: Order Comment: OK TO DO NOW PER GRETA RN Reason for Exam Mixed hyperlipidemia Performed By: #### C BC #### [facility] [address] Monocytes/100 WBC (Bld) 4.9 % Normal . [facility] Comment on above: Order Comment: OK TO DO NOW PER GRETA RN Reason for Exam Mixed hyperlipidemia Performed By: #### C BC #### [facility] [address] [place] [address] Neutrophils (Bld) [#/Vol] 5.1 10*3/uL Normal 1.8-7.7 [facility] Comment on above: Order Comment: OK TO DO NOW PER GRETA RN Reason for Exam Mixed hyperlipidemia Performed By: #### C BC #### [facility] [address] [place] [address] Neutrophils/100 WBC (Bld) 68.2 % Normal . [facility] Comment on above: Order Comment: OK TO DO NOW PER GRETA RN Reason for Exam Mixed hyperlipidemia Performed By: #### C BC #### [facility] [address] [place] [address] [place] NRBC% 0.1 /100{WBC} Normal 0-0.5 [facility] Comment on above: Order Comment: OK TO DO NOW PER GRETA RN Reason for Exam Mixed hyperlipidemia Performed By: #### C BC #### [facility] [address] [place] [address] [place] Platelet mean volume (Bld) [Entitic vol] 9.8 fL Normal 6.3-10.7 [facility] Comment on above: Order Comment: OK TO DO NOW PER GRETA RN Reason for Exam Mixed hyperlipidemia Performed By: #### C BC #### [facility] [address] [place] [id number] [facility] Platelets (Bld) [#/Vol] 231 10*3/uL Normal 150-450 [facility] Comment on above: Order Comment: OK TO DO NOW PER GRETA RN Reason for Exam Mixed hyperlipidemia Performed By: #### C BC #### [facility] [address] [place] [id number] [facility] RBC (Bld) [#/Vol] 4.76 10*6/uL Normal 3.60-5.00 [facility] Comment on above: Order Comment: OK TO DO NOW PER GRETA RN Reason for Exam Mixed hyperlipidemia Performed By: #### C BC #### [facility] [address] WBC (Bld) [#/Vol] 7.5 10*3/uL Normal 3.8-11.6 [facility] Comment on above: Order Comment: OK TO DO NOW PER GRETA RN Reason for Exam Mixed hyperlipidemia Performed By: #### C BC #### [facility] [address] [place] [id number] [facility] Creatinine [Mass/volume] in Serum or PlasmaOrdered By: Awais Bright on 04-15-2023 Creatinine [Mass/Vol] 0.75 mg/dL 0.60-1.20 [facility] Eosinophils Auto (Bld) [#/Vo l]Ordered By: Awais Bright on 04-15-2023 Eosinophils (Bld) [#/Vol] 0.1 10*3/uL 0.0-0.45 [facility] Eosinophils/100 WBC Auto (Bl d)Ordered By: Awais Bright on 04-15-2023 Eosinophils/100 WBC (Bld) 1.2 % . [facility] Erythrocyte distribution wid th Auto (RBC) [Ratio]Ordered By: Awais Bright on 04-15-2023 Erythrocyte distribution width (RBC) [Ratio] 13.8 % 11.9-15.3 [facility] Globulin Calc (S) [Mass/Vol] Ordered By: Awais Bright on 04-15-2023 Globulin (S) [Mass/Vol] 2.5 g/dL [facility] Glucose [Mass/volume] in Ser um or PlasmaOrdered By: Awais Bright on 04-15-2023 Glucose [Mass/Vol] 110 mg/dL 70-100 [facility] Comment on above: ADA recommended refe rence rangeRandom Glucose Reference Range is dependent on time and content of last meal. Glucose of more than 200 mg/dL in a nonstressed, ambulatory subject supports the diagnosis of Diabetes Mellitus. Glucose mean value [Mass/vol ume] in Blood Estimated from glycated hemoglobinOrdered By: Awais Bright on 04-15-2023 Average glucose Estimated from glycated hemoglobin (Bld) [Mass/Vol] 134 mg/dL [facility] Hematocrit Auto (Bld) [Volum e fraction]Ordered By: Awais Bright on 04-15-2023 Hematocrit (Bld) [Volume fraction] 40.8 % 34.0-46.4 [facility] Hemoglobin A1c percentageOrd ered By: Awais Bright on 04-15-2023 HbA1c (Bld) [Mass fraction] 6.3 % 4.3-5.6 [facility] Comment on above: Increased risk for d iabetes: 5.7 - 6.4diabetes: >6.4glycemic control for adults with diabetes: <7.0 Hemoglobin [Mass/volume] in BloodOrdered By: Awais Bright on 04-15-2023 Hemoglobin (Bld) [Mass/Vol] 13.6 g/dL 11.8-15.4 [facility] Hepatic Panelon 04-15-2023 Albumin [Mass/Vol] 4.1 g/dL Normal 3.5-5.7 [facility] Comment on above: Order Comment: OK TO DO NOW PER GRETA GAUTAM Reason for Exam Mixed hyperlipidemia Performed By: #### H EPATIC #### [facility] [address] [place] [address] [place] Albumin/Globulin [Mass ratio] 1.6 {ratio} Normal [facility] Comment on above: Order Comment: OK TO DO NOW PER GRETA GAUTAM Reason for Exam Mixed hyperlipidemia Performed By: #### H EPATIC #### [facility] [address] [place] [id number] [place] ALP [Catalytic activity/Vol] 59 U/L Normal 34-104 [facility] Comment on above: Order Comment: OK TO DO NOW PER GRETA RN Reason for Exam Mixed hyperlipidemia Result Comment: PERF ORMED BY: [place] [address] PATHOLOGIST EMPLOYMENT OFFICE CLERK SILVINA MONTESINOS M.D. Performed By: #### H EPATIC #### [facility] [address] [place] [address] ALT [Catalytic activity/Vol] 16 U/L Normal 7-52 [facility] Comment on above: Order Comment: OK TO DO NOW PER GRETA RN Reason for Exam Mixed hyperlipidemia Performed By: #### H EPATIC #### [facility] [address] [place] [address] AST [Catalytic activity/Vol] 14 U/L Normal 13-39 [facility] Comment on above: Order Comment: OK TO DO NOW PER GRETA RN Reason for Exam Mixed hyperlipidemia Performed By: #### H EPATIC #### [facility] [address] [place] [address] Bilirubin [Mass/Vol] 0.5 mg/dL Normal 0.3-1.0 [facility] Comment on above: Order Comment: OK TO DO NOW PER GRETA RN Reason for Exam Mixed hyperlipidemia Performed By: #### H EPATIC #### [facility] [address] [place] [address] Bilirubin,Indirect 0.4 mg/dL Normal [facility] Comment on above: Order Comment: OK TO DO NOW PER GRETA RN Reason for Exam Mixed hyperlipidemia Performed By: #### H EPATIC #### [facility] [address] [place] [address] [place] Bilirubin.indirect [Mass/Vol] 0.10 mg/dL Normal 0.03-0.18 [facility] Comment on above: Order Comment: OK TO DO NOW PER GRETA RN Reason for Exam Mixed hyperlipidemia Performed By: #### H EPATIC #### [facility] [address] [place] [address] [place] Globulin (S) [Mass/Vol] 2.5 g/dL Normal [facility] Comment on above: Order Comment: OK TO DO NOW PER GRETA RN Reason for Exam Mixed hyperlipidemia Performed By: #### H EPATIC #### [facility] [address] [place] [address] Protein [Mass/Vol] 6.6 g/dL Normal 6.4-8.9 [facility] Comment on above: Order Comment: OK TO DO NOW PER GRETA RN Reason for Exam Mixed hyperlipidemia Performed By: #### H EPATIC #### [address] Ironon 04-15-2023 Iron [Mass/Vol] 92 ug/dL Normal 50-212 [facility] Comment on above: Performed By: #### A ST, BNP, ALT, LIPID #### [address] Iron [Mass/volume] in Serum or PlasmaOrdered By: López Kidd on 04-15-2023 Iron [Mass/Vol] 92 ug/dL 50-212 [facility] Leukocytes [#/volume] correc margarita for nucleated erythrocytes in Blood by Automated counOrdered By: Awais Bright on 04-15-2023 WBC corrected for nucl RBC Auto (Bld) [#/Vol] 7.5 10*3/uL 3.8-11.6 [facility] Lipid Panelon 04-15-2023 Cholesterol [Mass/Vol] 190 mg/dL Normal 140-200 [facility] Comment on above: Order Comment: PT IS FASTING Result Comment: Chol less than 200 mg/dl low risk Chol 201-239 mg/dl borderline risk Chol 240 mg/dl and greater high risk Performed By: #### A ST, BNP, ALT, LIPID #### [facility] [address] [place] [address] Cholesterol in HDL [Mass/Vol] 49 mg/dL Normal 23-92 [facility] Comment on above: Order Comment: PT IS FASTING Result Comment: HDL CHOL ATP-III CLASSIFICATION Cardiovascular Risk HDL > or equal to 60 mg/dL LOW HDL < 40 mg/dL HIGH Performed By: #### A ST, BNP, ALT, LIPID #### [place] [id number] [place] Cholesterol.total/Cho lesterol in HDL [Mass ratio] 3.9 {ratio} Normal <5.0 [facility] Comment on above: Order Comment: PT IS FASTING Result Comment: PERF ORMED BY: [place] [address] PATHOLOGIST EMPLOYMENT OFFICE CLERK SILVINA MONTESINOS M.D. Performed By: #### A ST, BNP, ALT, LIPID #### [address] LDL Cholesterol,Calculate d 109 mg/dL High 0-100 [facility] Comment on above: Order Comment: PT IS FASTING Result Comment: LDL ATP III CLASSIFICATION LDL less than 100 mg/dL Optimal LDL 100-129 mg/dL Near or above optimal LDL 130-159 mg/dL Borderline high LDL 160-189 mg/dL High LDL greater than 189 mg/dL Very high Performed By: #### A ST, BNP, ALT, LIPID #### [address] Triglyceride w/Reflex 162 mg/dL High 0-149 [facility] Comment on above: Order Comment: PT IS FASTING Result Comment: TRIG ATP III CLASSIFICATION TRIG less than 150 mg/dL Normal TRIG 150-199 mg/dL Borderline high TRIG 200-500 mg/dL High TRIG greater than 500 mg/dL Very high Standard traceable to the Center for Disease Conrtrol and Prevention (CDC) test method. Performed By: #### A ST, BNP, ALT, LIPID #### [address] VLDL CHOLESTEROL 32 mg/dL Normal [facility] Comment on above: Order Comment: PT IS FASTING Performed By: #### A ST, BNP, ALT, LIPID #### [facility] [address] Lymphocytes Auto (Bld) [#/Vo l]Ordered By: Awais Bright on 04-15-2023 Lymphocytes (Bld) [#/Vol] 1.9 10*3/uL 1.00-4.8 [facility] Lymphocytes/100 WBC Auto (Bl d)Ordered By: Awais Bright on 04-15-2023 Lymphocytes/100 WBC (Bld) 25.1 % . [facility] MCH Auto (RBC) [Entitic mass ]Ordered By: Awais Bright on 04-15-2023 MCH (RBC) [Entitic mass] 28.5 pg 24.7-34.3 [facility] MCHC Auto (RBC) [Mass/Vol]Or dered By: Awais Bright on 04-15-2023 MCHC (RBC) [Mass/Vol] 33.2 g/dL 32.0-35.0 [facility] MCV Auto (RBC) [Entitic vol] Ordered By: Awais Bright on 04-15-2023 MCV (RBC) [Entitic vol] 85.7 fL 80-100 [facility] Monocytes Auto (Bld) [#/Vol] Ordered By: Awais Bright on 04-15-2023 Monocytes (Bld) [#/Vol] 0.4 10*3/uL 0.0-0.8 [facility] Monocytes/100 WBC Auto (Bld) Ordered By: Awais Bright on 04-15-2023 Monocytes/100 WBC (Bld) 4.9 % . [facility] Neutrophils Auto (Bld) [#/Vo l]Ordered By: Awais Bright on 04-15-2023 Neutrophils (Bld) [#/Vol] 5.1 10*3/uL 1.8-7.7 [facility] Neutrophils/100 WBC Auto (Bl d)Ordered By: Awais Bright on 04-15-2023 Neutrophils/100 WBC (Bld) 68.2 % . [facility] No Panel InformationOrdered By: Awais Bright on 04-15-2023 Estimated GFR (CKD-EPI) > 60.0 mL/Min [facility] Creatinine Clearance (Chem N/A [facility] Nucleated erythrocytes [Pres ence] in Blood by Automated countOrdered By: Awais Bright on 04-15-2023 Nucleated RBC Auto Ql (Bld) 0.1 /100{WBC} 0-0.5 [facility] Parathyrin.intact [Mass/volu me] in Serum or PlasmaOrdered By: López Kidd on 04-15-2023 Parathyrin.intact [Mass/Vol] 31.3 pg/mL [facility] Parathyroid Hormone Intacton 04-15-2023 Parathyroid Hormone Intact 31.3 pg/mL Normal [facility] Comment on above: Result Comment: PERF ORMED BY: [facility] [address] [place] [address] PATHOLOGIST EMPLOYMENT OFFICE CLERK SILVINA MONTESINOS M.D. Performed By: #### A ST, BNP, ALT, LIPID #### [facility] [address] Platelet mean volume Auto (B ld) [Entitic vol]Ordered By: Awais Bright on 04-15-2023 Platelet mean volume (Bld) [Entitic vol] 9.8 fL 6.3-10.7 [facility] Platelets Auto (Bld) [#/Vol] Ordered By: Awais Bright on 04-15-2023 Platelets (Bld) [#/Vol] 231 10*3/uL 150-450 [facility] Potassium [Moles/volume] in Serum or PlasmaOrdered By: Awais Bright on 04-15-2023 Potassium [Moles/Vol] 4.1 mmol/L 3.5-5.1 [facility] Protein [Mass/volume] in Ser um or PlasmaOrdered By: Awais Bright on 04-15-2023 Protein [Mass/Vol] 6.6 g/dL 6.4-8.9 [facility] RBC Auto (Bld) [#/Vol]Ordere d By: Awais Bright on 04-15-2023 RBC (Bld) [#/Vol] 4.76 10*6/uL 3.60-5.00 [facility] Serum or plasma albumin/glob ulin mass ratioOrdered By: Awais Bright on 04-15-2023 Albumin/Globulin [Mass ratio] 1.6 {ratio} [facility] Serum or plasma anion gap de terminationOrdered By: Awais Bright on 04-15-2023 Anion gap [Moles/Vol] 12.8 mmol/L 6.0-15.0 [facility] Serum or plasma high density lipoprotein (HDL) cholesterol measurementOrdered By: Awais Bright on 04-15-2023 Cholesterol in HDL [Mass/Vol] 49 mg/dL 23-92 [facility] Comment on above: HDL CHOL ATP-III CLA SSIFICATION Cardiovascular RiskHDL > or equal to 60 mg/dL LOWHDL < 40 mg/dL HIGH Serum or plasma non-glucuron idated bilirubin measurement (mass/volume)Ordered By: Awais Bright on 04-15-2023 Bilirubin.indirect [Mass/Vol] 0.4 mg/dL [facility] Serum or plasma total choles terol/high density lipoprotein (HDL) cholesterol mass ratOrdered By: Awais Bright on 04-15-2023 Cholesterol.total/Cho lesterol in HDL [Mass ratio] 3.9 {ratio} <5.0 [facility] Sodium [Moles/volume] in Ser um or PlasmaOrdered By: Awais Bright on 04-15-2023 Sodium [Moles/Vol] 139 mmol/L 136-145 [facility] Thyroid Stimulating Hormoneo n 04-15-2023 TSH Qn 1.31 m[IU]/L Normal 0.45-5.33 [facility] Comment on above: Performed By: #### A ST, BNP, ALT, LIPID #### [address] Thyrotropin [Units/volume] i n Serum or PlasmaOrdered By: López Kidd on 04-15-2023 TSH Qn 1.31 m[IU]/L 0.45-5.33 [facility] Triglyceride [Mass/volume] i n Serum or PlasmaOrdered By: Awais Bright on 04-15-2023 Triglyceride [Mass/Vol] 162 mg/dL 0-149 [facility] Comment on above: TRIG ATP III CLASSIF ICATIONTRIG less than 150 mg/dL NormalTRIG 150-199 mg/dL Borderline highTRIG 200-500 mg/dL High TRIG greater than 500 mg/dL Very highStandard traceable to the Center for Disease Conrtrol and Prevention (CDC) test method. Urea nitrogen [Mass/volume] in Serum or PlasmaOrdered By: Awais Bright on 04-15-2023 Urea nitrogen [Mass/Vol] 27 mg/dL 7-25 [facility] Vitamin B1 (Thiamine) Bloodo n 04-15-2023 Vitamin B1 (Thiamine) Blood 153.0 Normal 66.5-200.0 [facility] Comment on above: Result Comment: This test was developed and its performance characteristics determined by [facility]. It has not been cleared or approved by the Food and Drug Administration. Performed at: [facility] [address] [id number] Mold Puller: Argenis Reynolds MD, Phone: [phone] PERFORMED BY: [address] [place] [address] PATHOLOGIST EMPLOYMENT OFFICE CLERK SILVINA MONTESINOS M.D. Performed By: #### A ST, BNP, ALT, LIPID #### [facility] [address] [place], [place] [id number] [facility] Vitamin B12on 04-15-2023 Cobalamin (Vitamin B12) [Mass/Vol] 810 pg/mL Normal 180-914 [facility] Comment on above: Performed By: #### A ST, BNP, ALT, LIPID #### [facility] [address] [place], [place] [id number] [facility] Vitamin B12 ser/plasOrdered By: López Kidd on 04-15-2023 Cobalamin (Vitamin B12) [Mass/Vol] 810 pg/mL 180-914 [facility] Vitamin D 25 Hydroxy Totalon 04-15-2023 Vitamin D 25 Hydroxy Total 25.1 ng/mL Low 30-100 [facility] Comment on above: Result Comment: NORMA MIN D STATUS 25(OH)VITAMIN D RANGE (ng/mL) Deficient <20 Insufficient 20 to <30 Sufficient 30 to 100 Reference: Yasmany MF,Chelsy NC, Corina MAYER, et al. Evaluation,treatment, and prevention of vitamin D deficiency; an Endocrine Society clinical practice guideline. JCEM. 2010; 96(7):1911-30. PERFORMED BY: [address] [address] PATHOLOGIST EMPLOYMENT OFFICE CLERK SILVINA MONTESINOS M.D. Performed By: #### A ST, BNP, ALT, LIPID #### [facility] [address] Vitamin D+Metabolites [Mass/ volume] in Serum or PlasmaOrdered By: López Kidd on 04-15-2023 Vitamin D+Metabolites [Mass/Vol] 25.1 ng/mL 30-100 [facility] Comment on above: VITAMIN D STATUS 25( [place])VITAMIN D RANGE (ng/mL) Deficient <20 Insufficient 20 to <30Sufficient 30 to 100Reference: Yasmany MF,Chelsy NC, Corina MAYER, et al. Evaluation,treatment, and prevention of vitamin D deficiency; an Endocrine Society clinical practice guideline. JCEM. 2010; 96(7):1911-30. WBC Auto (Bld) [#/Vol]Ordere d By: Awais Bright on 04-15-2023 WBC (Bld) [#/Vol] 7.5 10*3/uL 3.8-11.6 [facility] CARDIAC STRESS/REST INJE CTIONon 02-13-2023 [facility] CARDIAC STRESS/REST INJECTION Patient Name: PAIGE MCCARTY STUDY: MYOCARDIAL PERFUSION STRESS TEST WITH LEXISCAN Performing facility: [facility], [address] [place] [address], [address], [address] Provider: Terese Braxton MD, [facility] PCP: Dr. Lisa Bright Supervising provider: Juan Sharp MD INDICATION: Abnormal EKG; Fatigue SOB HISTORY: Gender: F; Age: 57 y/o ; Height: 0 cm; Weight: 138.608773 kg. Abnormal EKG; High Cholesterol; HTN; SOB; Fatigue; Currently smoking. COMPARISON: No comparison. ACCESSION NUMBER(S): [id number]; [id number]; [id number] ORDERING CLINICIAN: TERESE BRAXTON TECHNIQUE: TWO DAY [...] Electronically signed by: JUAN SHARP MD Normal [facility] No Panel Informationon 02-13 Normal -[facility] 250 DO Work Phone: Basic Metabolic Panelon 03- Anion gap [Moles/Vol] 10.9 mmol/L Normal 6.0-15.0 [facility] Comment on above: Order Comment: ROBIN BOSS Performed By: #### B MP #### [address] [address] [facility] Calcium [Mass/Vol] 9.4 mg/dL Normal 8.6-10.3 [facility] Comment on above: Order Comment: ROBIN BOSS Result Comment: PERF ORMED BY: [address] [address] PATHOLOGIST EMPLOYMENT OFFICE CLERK SILVINA MONTESINOS M.D. Performed By: #### B MP #### [facility] [address] Chloride [Moles/Vol] 104 mmol/L Normal 98-107 [facility] Comment on above: Order Comment: FASTI NG. JKW Performed By: #### B MP #### [facility] [address] CO2 [Moles/Vol] 27.2 mmol/L Normal 21.0-31.0 [facility] Comment on above: Order Comment: FASTI NG. JKW Performed By: #### B MP #### [address] Creatinine [Mass/Vol] 0.80 mg/dL Normal 0.60-1.20 [facility] Comment on above: Order Comment: FASTI NG. JKW Performed By: #### B MP #### [place] [address] [place] GFR/1.73 sq M.predicted MDRD (S/P/Bld) [Vol rate/Area] mL/min/{1.73_m2} Normal [facility] Comment on above: Order Comment: FASTI NG. JKW Performed By: #### B MP #### [address] Glucose [Mass/Vol] 134 mg/dL High 70-100 [facility] Comment on above: Order Comment: FASTI NG. JKW Result Comment: [place] Glucose Reference Range is dependent on time and content of last meal. Glucose of more than 200 mg/dL in a nonstressed, ambulatory subject supports the diagnosis of Diabetes Mellitus. ADA recommended reference range Performed By: #### B MP #### [place] [address] [place] Potassium [Moles/Vol] 4.1 mmol/L Normal 3.5-5.1 [facility] Comment on above: Order Comment: FASTI NG. JKW Performed By: #### B MP #### [place] [address] [place] Sodium [Moles/Vol] 138 mmol/L Normal 136-145 [facility] Comment on above: Order Comment: FASTI ELIOT. JKW Performed By: #### B MP #### [facility] [address] [place] [address] [place] Urea nitrogen [Mass/Vol] 22 mg/dL Normal 7-25 [facility] Comment on above: Order Comment: FASTI NG. JKW Performed By: #### B MP #### [facility] [address] [place] [address] [place] Calcium [Mass/volume] in Ser um or PlasmaOrdered By: Terese Braxton on 01-25-2023 Calcium [Mass/Vol] 9.4 mg/dL 8.6-10.3 [facility] Carbon dioxide, total [Moles /volume] in Serum or PlasmaOrdered By: Terese Braxton on 01-25-2023 CO2 [Moles/Vol] 27.2 mmol/L 21.0-31.0 [facility] Chloride [Moles/volume] in S anh or PlasmaOrdered By: Terese Braxton on 01-25-2023 Chloride [Moles/Vol] 104 mmol/L 98-107 [facility] Creatinine [Mass/volume] in Serum or PlasmaOrdered By: Terese Braxton on 01-25-2023 Creatinine [Mass/Vol] 0.80 mg/dL 0.60-1.20 [facility] Glucose [Mass/volume] in Ser um or PlasmaOrdered By: Terese Braxton on 01-25-2023 Glucose [Mass/Vol] 134 mg/dL 70-100 [facility] Comment on above: ADA recommended refe rence rangeRandom Glucose Reference Range is dependent on time and content of last meal. Glucose of more than 200 mg/dL in a nonstressed, ambulatory subject supports the diagnosis of Diabetes Mellitus. No Panel InformationOrdered By: Terese Braxton on 01-25-2023 Estimated GFR (CKD-EPI) > 60.0 mL/Min [facility] Pharmacy Creatinine Clearance (Chem N/A [facility] No Panel Informationon 01-25 > 60.0 Normal -[facility] 250 DO Work Phone: 10.9\S\10.9 Normal 6.0-15.0 [facility] 250 DO Work Phone: 9.4\S\9.4 Normal 8.6-10.3 [facility] 250 DO Work Phone: Comment on above: PERFORMED BY:[facility] [place], [place] [phone] MEDICAL DIRECTORSILVINA MONTESINOS M.D. 27.2\S\27.2 Normal 21.0-31.0 [facility] 250 DO Work Phone: 104\S\104 Normal 98-107 [facility] 250 DO Work Phone: 4.1\S\4.1 Normal 3.5-5.1 [facility] Work Phone: 138\S\138 Normal 136-145 [facility] DO Work Phone: 0.80\S\0.80 Normal 0.60-1.20 [facility] 250 DO Work Phone: 22\S\22 Normal 7-25 [facility] 250 DO Work Phone: 134\S\134 above high threshold 70-100 [facility] 250 DO Work Phone: Comment on above: Random Glucose Refer ence Range is dependent on time and content of last meal. Glucose of more than 200 mg/dL in a nonstressed, ambulatory subject supports the diagnosis of Diabetes Mellitus. ADA recommended reference range Potassium [Moles/volume] in Serum or PlasmaOrdered By: Terese Braxton on 01-25-2023 Potassium [Moles/Vol] 4.1 mmol/L 3.5-5.1 [facility] Serum or plasma anion gap de terminationOrdered By: Terese Braxton on 01-25-2023 Anion gap [Moles/Vol] 10.9 mmol/L 6.0-15.0 [facility] Sodium [Moles/volume] in Ser um or PlasmaOrdered By: Terese Braxton on 01-25-2023 Sodium [Moles/Vol] 138 mmol/L 136-145 [facility] Urea nitrogen [Mass/volume] in Serum or PlasmaOrdered By: Terese Braxton on 01-25-2023 Urea nitrogen [Mass/Vol] 22 mg/dL 7-25 [facility] Office Visit (Cardiology)on 01-21-2023 Follow-up visit Diagnoses/Problems [...] we can help. You may also call 0-080-DHUS-NOW for free resources and assistance.; Status:Complete; Done: [...] for bariatric surgical options next week with [facility]. She is making effort to quit smoking. She is currently using vape pens with 0 nicotine. Primary MD increased hydrochlorothiazide. Blood pressure is still above target. She says she had a sleep study about a year ago, and was recommended CPAP. She is not using CPAP therapy she uses an [id number] pill for diuresis, it actually does not [...] A1c 10/17 (more content not included)... Normal [facility] Tobacco Screening.on 023 Tobacco use status CPHS b) No [facility] [employer] 250 DO Work Phone: Alanine Aminotransferaseon 0 01-09-2023 ALT [Catalytic activity/Vol] 14 U/L Normal [facility] Comment on above: Order Comment: PT IS FASTING Performed By: #### A ST, BNP, ALT, LIPID #### [facility] [address] Alanine aminotransferase [En zymatic activity/volume] in Serum or PlasmaOrdered By: Terese Braxton on 01-09-2023 ALT [Catalytic activity/Vol] 14 U/L [facility] Aspartate Amino Transferaseo n 01-09-2023 AST [Catalytic activity/Vol] 14 U/L Normal [facility] Comment on above: Order Comment: PT IS FASTING Performed By: #### A ST, BNP, ALT, LIPID #### [facility] [address] [place] [id number] [facility] Aspartate aminotransferase [ Enzymatic activity/volume] in Serum or PlasmaOrdered By: Terese Braxton on 01-09-2023 AST [Catalytic activity/Vol] 14 U/L [facility] B-Type Natriuretic Peptideon 01-09-2023 Natriuretic peptide B (Bld) [Mass/Vol] 22.0 pg/mL Normal 5-100 [facility] Comment on above: Result Comment: PERF ORMED BY: [place] [address] PATHOLOGIST EMPLOYMENT OFFICE CLERK SILVINA MONTESINOS M.D. Performed By: #### A ST, BNP, ALT, LIPID #### [address] Cholesterol [Mass/volume] in Serum or PlasmaOrdered By: Terese Braxton on 01-09-2023 Cholesterol [Mass/Vol] 161 mg/dL 140-200 [facility] Comment on above: Chol less than 200 m g/dl low riskChol 201-239 mg/dl borderline riskChol 240 mg/dl and greater high risk Cholesterol in LDL Calc [Mas s/Vol]Ordered By: Terese Braxton on 01-09-2023 Cholesterol in LDL [Mass/Vol] 77 mg/dL 0-100 [facility] Comment on above: LDL ATP III CLASSIFI CATIONLDL less than 100 mg/dL OptimalLDL 100-129 mg/dL Near or above optimalLDL 130-159 mg/dL Borderline highLDL 160-189 mg/dL HighLDL greater than 189 mg/dL Very high Cholesterol in VLDL Calc [Ma ss/Vol]Ordered By: Terese Braxton on 01-09-2023 Cholesterol in VLDL [Mass/Vol] 31 mg/dL [facility] Echocardiogramon 01-09-[address], [address] [place] [address] TRANSTHORACIC ECHOCARDIOGRAM REPORT Patient Name: PAIGE Minor Physician: [id number] Juan Sharp MD Study Date: 01/09/2023 Referring Physician: TERESE BRAXTON MRN/PID: [id number] PCP: Awais Bright MD Accession/Order#: [id number] Department Location: [facility] Date of : 1965 Fellow: Gender: F Nurse: Jayme Odonnell RN Admit Date: Inspector Mechanical: Nat Saha RDCS, RVT Height: 157.48 cm CC Report to: Weight: 136.53 kg Study Type: Echocardiogram BSA: 2.27 m2 Diagnosis/ICD: R94.31-Abnormal electrocardiogram [ECG] [EKG]; R06.02-Shortness of breath Indication: HTN, Hyperlipidemia, Tobacco Abuse, Morbid Obesity, Clotting Disorder Procedure/CPT: Echo Complete w Full [id number] Study Detail: The following Echo studies were [...] 0.9 m/s (0.6-0.9m/s) PV Max P.1 mmHg [id number] Juan Sharp MD Electronically signed on 01/09/2023 at 5:33:40 PM Final Normal [facility] - Chemistry and C hemistry - challengeon 01-09-2023 Cholesterol [Mass/Vol] 161\S\161 Normal 140-200 [facility] 250 DO Work Phone: Comment on above: Chol less than 200 m g/dl low risk Chol 201-239 mg/dl borderline risk Chol 240 mg/dl and greater high risk Cholesterol in LDL [Mass/Vol] 77\S\77 Normal 0-100 [facility] 250 DO Work Phone: Comment on above: LDL ATP III CLASSIFI CATION LDL less than 100 mg/dL Optimal LDL 100-129 mg/dL Near or above optimal LDL 130-159 mg/dL Borderline high LDL 160-189 mg/dL High LDL greater than 189 mg/dL Very high Lipid Panelon 01-09-2023 Cholesterol [Mass/Vol] 161 mg/dL Normal 140-200 [facility] Comment on above: Order Comment: PT IS FASTING Result Comment: Chol less than 200 mg/dl low risk Chol 201-239 mg/dl borderline risk Chol 240 mg/dl and greater high risk Performed By: #### A ST, BNP, ALT, LIPID #### [facility] [address] [place] [address] [place] Cholesterol in HDL [Mass/Vol] 53 mg/dL Normal 35-85 [facility] Comment on above: Order Comment: PT IS FASTING Result Comment: HDL CHOL ATP-III CLASSIFICATION Cardiovascular Risk HDL > or equal to 60 mg/dL LOW HDL < 40 mg/dL HIGH Performed By: #### A ST, BNP, ALT, LIPID #### [facility] [address] Cholesterol.total/Cho lesterol in HDL [Mass ratio] 3.0 {ratio} Normal <5.0 [facility] Comment on above: Order Comment: PT IS FASTING Result Comment: PERF ORMED BY: [facility] [address] [place] [address] PATHOLOGIST EMPLOYMENT OFFICE CLERK SILVINA MONTESINOS M.D. Performed By: #### A ST, BNP, ALT, LIPID #### [facility] [address] [place] [id number] [place] LDL Cholesterol,Calculate d 77 mg/dL Normal 0-100 [facility] Comment on above: Order Comment: PT IS FASTING Result Comment: LDL ATP III CLASSIFICATION LDL less than 100 mg/dL Optimal LDL 100-129 mg/dL Near or above optimal LDL 130-159 mg/dL Borderline high LDL 160-189 mg/dL High LDL greater than 189 mg/dL Very high Performed By: #### A ST, BNP, ALT, LIPID #### [facility] [address] [place] [address] [facility] Triglyceride w/Reflex 156 mg/dL High 0-149 [facility] Comment on above: Order Comment: PT IS FASTING Result Comment: TRIG ATP III CLASSIFICATION TRIG less than 150 mg/dL Normal TRIG 150-199 mg/dL Borderline high TRIG 200-500 mg/dL High TRIG greater than 500 mg/dL Very high Standard traceable to the Center for Disease Conrtrol and Prevention (CDC) test method. Performed By: #### A ST, BNP, ALT, LIPID #### [facility] [address] [place] [address] [facility] VLDL CHOLESTEROL 31 mg/dL Normal [facility] Comment on above: Order Comment: PT IS FASTING Performed By: #### A ST, BNP, ALT, LIPID #### [facility] [address] [place] [address] [place] Natriuretic peptide B [Mass/ Vol]Ordered By: Terese Braxton on 01-09-2023 Natriuretic peptide B (Bld) [Mass/Vol] 22.0 pg/mL 5-100 [facility] No Panel Informationon 01-09 14\S\14 Normal 7-52 [facility] 250 DO Work Phone: 3.0\S\3.0 Normal <5.0 [facility] 250 DO Work Phone: Comment on above: PERFORMED BY:[facility] [place] [address] [phone] MEDICAL DIRECTORSILVINA MONTESINOS M.D. 31\S\31 Normal [facility] 250 DO Work Phone: 156\S\156 above high threshold 0-149 [facility] 250 DO Work Phone: Comment on above: TRIG ATP III CLASSIF ICATION TRIG less than 150 mg/dL Normal TRIG 150-199 mg/dL Borderline high TRIG 200-500 mg/dL High TRIG greater than 500 mg/dL Very high Standard traceable to the Center for Disease Conrtrol and Prevention (CDC) test method. 53\S\53 Normal 35-85 -[facility] 250 DO Work Phone: Comment on above: HDL CHOL ATP-III CLA SSIFICATION Cardiovascular Risk HDL > or equal to 60 mg/dL LOW HDL < 40 mg/dL HIGH 22.0\S\22.0 Normal 5-100 [facility] 250 DO Work Phone: Comment on above: PERFORMED BY:[place] [address] [place], [place] [phone] MEDICAL DIRECTORSILVINA MONTESINOS M.D. Serum or plasma high density lipoprotein (HDL) cholesterol measurementOrdered By: Terese Braxton on 01-09-2023 Cholesterol in HDL [Mass/Vol] 53 mg/dL 35-85 [facility] Comment on above: HDL CHOL ATP-III CLA SSIFICATION Cardiovascular RiskHDL > or equal to 60 mg/dL LOWHDL < 40 mg/dL HIGH Serum or plasma total choles terol/high density lipoprotein (HDL) cholesterol mass ratOrdered By: Terese Braxton on 01-09-2023 Cholesterol.total/Cho lesterol in HDL [Mass ratio] 3.0 {ratio} <5.0 [facility] Triglyceride [Mass/volume] i n Serum or PlasmaOrdered By: Terese Braxton on 01-09-2023 Triglyceride [Mass/Vol] 156 mg/dL 0-149 [facility] Comment on above: TRIG ATP III CLASSIF [...] we can help. You may also call 3-465-UXPMNOW for free resources and assistance.; Status:Complete; Done: [...] be evaluated in the emergency department at [place] she is on multiple inhalers. She reports [...] shows sinus rhythm at 86 bpm with TX interval of 170 ms QRS duration 96 [...] Screening.on 023 Adult depression screening assessment No -[facility] 250 DO Work Phone: Tobacco use status CPHS a) Yes -[facility] 250 DO Work Phone: Tobacco Screening. Yes [facility] 250 DO Work Phone: Albumin [Mass/volume] in Ser um or PlasmaOrdered By: Awais Bright on 10-23-2022 Albumin [Mass/Vol] 3.6 g/dL 3.2-5.5 [facility] Basic Metabolic Panelon 09-28 Calcium [Mass/Vol] 9.1271122 mg/dL Normal 8.2-10 .2 mg/dL [employer] Other CO2 [Moles/Vol] 24.75519335 mmol/L Normal 22.0-3 0.0 mmol/L [facility] Other Creatinine [Mass/Vol] 0.04415571 mg/dL Normal 0. 44-1.03 mg/dL [facility] Other Potassium [Moles/Vol] 4.98265595 mmol/L Normal 3 .5-5.1 mmol/L [facility] Other Basic Metabolic Panel > 60 [facility] [employer] Other Basophils Auto (Bld) [#/Vol] Ordered By: Awais Bright on 10-23-2022 Basophils (Bld) [#/Vol] 0.1 10*3/uL 0.0-0.2 [facility] Basophils/100 WBC Auto (Bld) Ordered By: Awais Bright on 10-23-2022 Basophils/100 WBC (Bld) 0.6 % . [facility] Complete Blood Count Auto Di ffon 10-23-2022 Basophils (Bld) [#/Vol] 0.634563997 10*3/uL Normal 0.0-0.2 10*3/uL [facility] Other Basophils/100 WBC (Bld) 0.600 % . % [facility] Other Eosinophils (Bld) [#/Vol] 0.633732939 10*3/uL Normal 0.0-0.45 10*3/uL [facility] Other Eosinophils/100 WBC (Bld) 1.600 % . % [facility] Other Erythrocyte distribution width (RBC) [Ratio] 13.900 % Normal 11.9-15.3 % [facility] Other Hematocrit (Bld) [Volume fraction] 40.100 % Normal 34.0-46.4 % [facility] Other Hemoglobin (Bld) [Mass/Vol] 13.625042 g/dL Normal 11.8-15.4 g/dL [facility] Other Lymphocytes (Bld) [#/Vol] 2.644117201 10*3/uL Normal 1.00-4.8 10*3/uL [facility] Other Lymphocytes/100 WBC (Bld) 25.400 % . % [facility] Other MCH (RBC) [Entitic mass] 29.2000 pg Normal 24.7-34.3 pg [facility] Other MCV (RBC) [Entitic vol] 87.1000 fL Normal 80-100 fL [facility] Other Monocytes (Bld) [#/Vol] 0.729839959 10*3/uL Normal 0.0-0.8 10*3/uL [facility] Other Monocytes/100 WBC (Bld) 4.500 % . % [facility] Other Neutrophils (Bld) [#/Vol] 5.143233726 10*3/uL Normal 1.8-7.7 10*3/uL [facility] Other Neutrophils/100 WBC (Bld) 67.900 % . % [facility] Other Platelet mean volume (Bld) [Entitic vol] 9.6000 fL Normal 6.3-10.7 fL [facility] Other WBC (Bld) [#/Vol] 8.161736047 10*3/uL Normal 3.8 -11.6 10*3/uL [facility] Other Complete Blood Count Auto Diff 8.6 10*3/uL Normal 3.8-11.6 10*3/uL [facility] Other Complete Blood Count Auto Diff 33.5 g/dL Normal 32.0-35.0 g/dL [facility] Other Complete Blood Count Auto Diff 0.1 /100{WBC} Normal 0-0.5 /100{WBC} [facility] Other Creatinine and Glomerular fi ltration rate.predicted panel (S/P/Bld)Ordered By: Awais Bright on 10-23-2022 Creatinine [Mass/Vol] 0.77 mg/dL 0.44-1.03 [facility] Direct bilirubin measurement Ordered By: Awais Bright on 10-23-2022 Bilirubin.direct [Mass/Vol] 0.1 mg/dL 0.0-0.4 [facility] Eosinophils Auto (Bld) [#/Vo l]Ordered By: Awais Bright on 10-23-2022 Eosinophils (Bld) [#/Vol] 0.1 10*3/uL 0.0-0.45 [facility] Eosinophils/100 WBC Auto (Bl d)Ordered By: Awais Bright on 10-23-2022 Eosinophils/100 WBC (Bld) 1.6 % . [facility] Erythrocyte distribution wid th Auto (RBC) [Ratio]Ordered By: Awais Bright on 10-23-2022 Erythrocyte distribution width (RBC) [Ratio] 13.9 % 11.9-15.3 [facility] Erythrocytes [#/volume] in B lood by Automated countOrdered By: Awais rBight on 10-23-2022 RBC (Bld) [#/Vol] 4.60 10*6/uL 3.60-5.00 [facility] Estimated glomerular filtrat ion rate (GFR) non- AmericanOrdered By: Awais Bright on 10-23-2022 GFR/1.73 sq M.predicted among non-blacks MDRD (S/P/Bld) [Vol rate/Area] > 60 mL/Min [facility] Globulin Calc (S) [Mass/Vol] Ordered By: Awais Bright on 10-23-2022 Globulin (S) [Mass/Vol] 3.2 g/dL [facility] Hematocrit Auto (Bld) [Volum e fraction]Ordered By: Awais Bright on 10-23-2022 Hematocrit (Bld) [Volume fraction] 40.1 % 34.0-46.4 [facility] Hemoglobin [Mass/volume] in BloodOrdered By: Awais Bright on 10-23-2022 Hemoglobin (Bld) [Mass/Vol] 13.4 g/dL 11.8-15.4 [facility] Hepatic Panelon 10-23-2022 Albumin [Mass/Vol] 3.234275 g/dL Normal 3.2-5.5 g/dL [facility] Other ALT [Catalytic activity/Vol] 24 U/L Normal 10-60 U/L [facility] Other Bilirubin [Mass/Vol] 0.0603035 mg/dL Normal 0.3- 1.2 mg/dL [facility] Other Bilirubin.indirect [Mass/Vol] 0.4170472 mg/dL Normal 0.0-0.4 mg/dL [facility] Other Protein [Mass/Vol] 6.131324 g/dL Normal 6.1-7.9 g/dL [facility] Other Hepatic Panel 0.4 mg/dL [facility] Other Hepatic Panel 3.2 g/dL [facility] Other Leukocytes [#/volume] correc margarita for nucleated erythrocytes in Blood by Automated counOrdered By: Awais Bright on 10-23-2022 WBC corrected for nucl RBC Auto (Bld) [#/Vol] 8.6 10*3/uL 3.8-11.6 [facility] Lymphocytes Auto (Bld) [#/Vo l]Ordered By: Awais Bright on 10-23-2022 Lymphocytes (Bld) [#/Vol] 2.2 10*3/uL 1.00-4.8 [facility] Lymphocytes/100 WBC Auto (Bl d)Ordered By: Awais Bright on 10-23-2022 Lymphocytes/100 WBC (Bld) 25.4 % . [facility] MCH Auto (RBC) [Entitic mass ]Ordered By: Awais Bright on 10-23-2022 MCH (RBC) [Entitic mass] 29.2 pg 24.7-34.3 [facility] MCHC Auto (RBC) [Mass/Vol]Or dered By: Awais Bright on 10-23-2022 MCHC (RBC) [Mass/Vol] 33.5 g/dL 32.0-35.0 [facility] MCV Auto (RBC) [Entitic vol] Ordered By: Awais Bright on 10-23-2022 MCV (RBC) [Entitic vol] 87.1 fL 80-100 [facility] Monocytes Auto (Bld) [#/Vol] Ordered By: Awais Bright on 10-23-2022 Monocytes (Bld) [#/Vol] 0.4 10*3/uL 0.0-0.8 [facility] Monocytes/100 WBC Auto (Bld) Ordered By: Awais Bright on 10-23-2022 Monocytes/100 WBC (Bld) 4.5 % . [facility] Neutrophils Auto (Bld) [#/Vo l]Ordered By: Awais Bright on 10-23-2022 Neutrophils (Bld) [#/Vol] 5.8 10*3/uL 1.8-7.7 [facility] Neutrophils/100 WBC Auto (Bl d)Ordered By: Awais Bright on 10-23-2022 Neutrophils/100 WBC (Bld) 67.9 % . [facility] No Panel InformationOrdered By: Awais Bright on 10-23-2022 Estimated GFR () > 60 mL/Min [facility] Comment on above: GFR estimated refere nce range: According to KDOQI guidelines, <60 ml/min/1.73m2 is sufficient to diagnose a patient with chronic kidney disease. Pharmacy Creatinine Clearance (Chem N/A [facility] Nucleated erythrocytes [Pres ence] in Blood by Automated countOrdered By: Awais Bright on 10-23-2022 Nucleated RBC Auto Ql (Bld) 0.1 /100{WBC} 0-0.5 [facility] Platelet mean volume Auto (B ld) [Entitic vol]Ordered By: Awais Bright on 10-23-2022 Platelet mean volume (Bld) [Entitic vol] 9.6 fL 6.3-10.7 [facility] Platelets [#/volume] in Bloo d by Automated countOrdered By: Awais Bright on 10-23-2022 Platelets (Bld) [#/Vol] 260 10*3/uL 150-450 [facility] Protein [Mass/volume] in Ser um or PlasmaOrdered By: Awais Bright on 10-23-2022 Protein [Mass/Vol] 6.8 g/dL 6.1-7.9 [facility] Serum or plasma alanine coelho otransferase measurement without P-5'-P (enzymatic activiOrdered By: Awais Bright on 10-23-2022 ALT No additional P-5'-P [Catalytic activity/Vol] 24 U/L 10-60 [facility] Serum or plasma albumin/glob ulin mass ratioOrdered By: Awais Bright on 10-23-2022 Albumin/Globulin [Mass ratio] 1.1 {ratio} [facility] Serum or plasma alkaline last sphatase measurement (enzymatic activity/volume)Ordered By: Awais Bright on 10-23-2022 ALP [Catalytic activity/Vol] 65 U/L 32-92 [facility] Serum or plasma anion gap de terminationOrdered By: Awais Bright on 10-23-2022 Anion gap [Moles/Vol] 11.7 mmol/L 6.0-15.0 [facility] Serum or plasma aspartate am inotransferase measurement (enzymatic activity/volume)Ordered By: Awais Bright on 10-23-2022 AST [Catalytic activity/Vol] 22 U/L 10-42 [facility] Serum or plasma calcium kurt urement (mass/volume)Ordered By: Awais Bright on 10-23-2022 Calcium [Mass/Vol] 9.6 mg/dL 8.2-10.2 [facility] Serum or plasma chloride ludivina surement (moles/volume)Ordered By: Awais Bright on 10-23-2022 Chloride [Moles/Vol] 104 mmol/L 95-114 [facility] Serum or plasma glucose kurt urement (mass/volume)Ordered By: Awais Bright on 10-23-2022 Glucose [Mass/Vol] 108 mg/dL 70-100 [facility] Comment on above: ADA recommended refe rence rangeRandom Glucose Reference Range is dependent on time and content of last meal. Glucose of more than 200 mg/dL in a nonstressed, ambulatory subject supports the diagnosis of Diabetes Mellitus. Serum or plasma non-glucuron idated bilirubin measurement (mass/volume)Ordered By: Awais Bright on 10-23-2022 Bilirubin.indirect [Mass/Vol] 0.4 mg/dL [facility] Serum or plasma potassium me asurement (moles/volume)Ordered By: Awais Bright on 10-23-2022 Potassium [Moles/Vol] 4.3 mmol/L 3.5-5.1 [facility] Serum or plasma sodium measu rement (moles/volume)Ordered By: Awais Bright on 10-23-2022 Sodium [Moles/Vol] 136 mmol/L 136-146 [facility] Serum or plasma thyroxine (T 4) measurement (mass/volume)Ordered By: Awais Bright on 10-23-2022 T4 [Mass/Vol] 8.37 ug/dL 5.39-11.82 [facility] Serum or plasma total biliru bin measurement (mass/volume)Ordered By: Awais Bright on 10-23-2022 Bilirubin [Mass/Vol] 0.5 mg/dL 0.3-1.2 [facility] Serum or plasma total carbon dioxide measurement (moles/volume)Ordered By: Awais Bright on 10-23-2022 CO2 [Moles/Vol] 24.6 mmol/L 22.0-30.0 [facility] Serum or plasma urea nitroge n measurement (mass/volume)Ordered By: Awais Bright on 10-23-2022 Urea nitrogen [Mass/Vol] 15 mg/dL 07-20 [facility] TSH DL <= 0.005 mIU/L QnOrde red By: Awais Bright on 10-23-2022 TSH Qn 1.91 m[IU]/L 0.45-5.33 [facility] Thyroid Stimulating Hormoneo n 10-23-2022 TSH Qn [id number] m[IU]/L Normal 0.45-5 .33 u[iU]/mL [facility] [employer] Other Thyroxine (T4) Totalon 10-23 Thyroxine (T4) Total 8.37 ug/dL Normal 5.39-11 .82 ug/dL [employer] Other WBC Auto (Bld) [#/Vol]Ordere d By: Awais Bright on 10-23-2022 WBC (Bld) [#/Vol] 8.6 10*3/uL 3.8-11.6 [facility] XR abdomen min 2Von 10-23-20 22 XR abdomen min 2V [facility] [employer] Other XR abdomen min 2V [facility] [place] [employer] Other XR abdomen min 2V [address] [place] [address] [employer] Other XR abdomen [place] 2[place] [address] [employer] Other XR abdomen min 2V XRay Report [employer] Other XR abdomen min 2V Signed [facility] [employer] Other XR abdomen min 2V Patient: Paige Mccarty MR#: [id number] [employer] Other XR abdomen min 2V : 1965 Acct:[id number] [employer] Other XR abdomen min 2V Age/Sex: 57 / F ADM Date: 10/23/22 [employer] Other XR abdomen min 2V Loc: [facility] Room: Typ e: [facility] [employer] Other XR abdomen min 2V Attending Dr: Awais Bright DO [employer] Other XR abdomen min 2V Copies to: Awais Bright DO [employer] Other XR abdomen min 2V Ordering Provider: Deshawn Bright DO [employer] Other XR abdomen min 2V Date of Service: 10/23/22 [employer] Other XR abdomen min 2V XR/XR abdomen min 2V: Abdominal pain [employer] Other XR abdomen min 2V ([id number]) XR/XR chest 2V*: Dyspepsia [employer] Other XR abdomen min 2V Plain film chest2 view [employer] Other XR abdomen min 2V HISTORY:Shortness of breath. [employer] Other XR abdomen min 2V COMPARISON:None No rt [employer] Other XR abdomen min 2V FINDINGS: The cardia c, mediastinal and hilar silhouettes are within normal limits. No acute lung [employer] Other XR abdomen min 2V process, pleural effusion or pneumothorax identified. Bony structures are intact. [employer] Other XR abdomen min 2V X R/XR chest 2V* [employer] Other XR abdomen min 2V IMPRESSION: No acute process. . [employer] Other XR abdomen min 2V 2 views of abdomen [employer] Other XR abdomen min 2V HISTORY: Upper LEFT abdominal pain. [employer] Other XR abdomen min 2V RIGHT upper quadrant surgical clips present. No pneumoperitoneum. Moderate stool throughout the [employer] Other XR abdomen min 2V proximal mid colon. Tubal ligation clips present. No gaseous intestinal distention. Mild lumbar [employer] Other XR abdomen min 2V spondylosis. [employer] Other XR abdomen min 2V IMPRESSION: Nonspeci fic abdomen. A moderate stool. [employer] Other XR abdomen min 2V Impression dictated by: Bishnu Correia M.D.10/23/2022 4:03 PM [employer] Other XR abdomen min 2V Dictation Location: [place] [address] [employer] Other XR abdomen min 2V Transcribed By: JOE 10/23/22 1603 [employer] Other XR abdomen min 2V Dictated By: iBshnu Correia DO 10/23/22 1550 [facility] Other XR abdomen min 2V Signed By: Wong[employer] Other XR abdomen min 2V 10/23/22 160 [facility] [employer] Other Cholesterol [Mass/volume] in Serum or PlasmaOrdered By: Awais Bright on 10-17-2022 Cholesterol [Mass/Vol] 245 mg/dL 140-200 [facility] Comment on above: Chol less than 200 m g/dl low riskChol 201-239 mg/dl borderline riskChol 240 mg/dl and greater high risk Cholesterol in LDL Calc [Mas s/Vol]Ordered By: Awais Bright on 10-17-2022 Cholesterol in LDL [Mass/Vol] 145 mg/dL 0-100 [facility] Comment on above: LDL ATP III CLASSIFI CATIONLDL less than 100 mg/dL OptimalLDL 100-129 mg/dL Near or above optimalLDL 130-159 mg/dL Borderline highLDL 160-189 mg/dL HighLDL greater than 189 mg/dL Very high Cholesterol in VLDL Calc [Ma ss/Vol]Ordered By: Awais Bright on 10-17-2022 Cholesterol in VLDL [Mass/Vol] 40 mg/dL [facility] Glucose mean value [Mass/vol ume] in Blood Estimated from glycated hemoglobinOrdered By: Awais Bright on 10-17-2022 Average glucose Estimated from glycated hemoglobin (Bld) [Mass/Vol] 134 mg/dL [facility] Hemoglobin A1c percentageOrd ered By: Awais Bright on 10-17-2022 HbA1c (Bld) [Mass fraction] 6.3 % 4.3-5.6 [facility] Comment on above: Increased risk for d iabetes: 5.7 - 6.4diabetes: >6.4glycemic control for adults with diabetes: <7.0 Serum or plasma high density lipoprotein (HDL) cholesterol measurementOrdered By: Awais Bright on 10-17-2022 Cholesterol in HDL [Mass/Vol] 60 mg/dL 35-85 [facility] Comment on above: HDL CHOL ATP-III CLA SSIFICATION Cardiovascular RiskHDL > or equal to 60 mg/dL LOWHDL < 40 mg/dL HIGH Serum or plasma total choles terol/high density lipoprotein (HDL) cholesterol mass ratOrdered By: Awais Bright on 10-17-2022 Cholesterol.total/Cho lesterol in HDL [Mass ratio] 4.1 {ratio} <5.0 [facility] Triglyceride [Mass/volume] i n Serum or PlasmaOrdered By: Awais Bright on 10-17-2022 Triglyceride [Mass/Vol] 200 mg/dL 35-149 [facility] Comment on above: TRIG ATP III CLASSIF [...] by: ROBBI CORREIA Date: 2022-09-24 15:28 Normal [facility] Vital Signs Date Time Vital Sign Value Performing Clinician Facility 02-10-2024 10:48-0400 Body height 158.1 cm Terese Braxton MD Work Phone: [facility] 02-10-2024 10:48-0400 Body mass index (BMI) [Ratio] 46.45 kg/m2 Terese Braxton MD Work Phone: [facility] 02-10-2024 10:48-0400 Body weight 116.12 kg Terese Braxton MD Work Phone: [facility] 02-10-2024 10:48-0400 Diastolic blood pressure 80 mm[Hg] Terese Braxton MD Work Phone: [facility] 02-10-2024 10:48-0400 Heart rate 80 /min Terese Braxton MD Work Phone: [facility] 02-10-2024 10:48-0400 Systolic blood pressure 128 mm[Hg] Terese Braxton MD Work Phone: [facility] 11-26-2023 08:47-0500 Body height 157.5 cm Yoli Cha PA-C Work Phone: [facility] [employer] [facility] 11-26-2023 08:47-0500 Body mass index (BMI) [Ratio] 53.37 kg/m2 Yoli Doughertya PA-C Work Phone: [facility] [employer] [facility] 11-26-2023 08:47-0500 Body weight 132.36 kg Yoli Choudharynga PA-C Work Phone: [facility] [employer] [facility] 11-26-2023 08:47-0500 Diastolic blood pressure 72 mm[Hg] Yoli Choudharynga PA-C Work Phone: [facility] [place] 11-26-2023 08:47-0500 Heart rate 88 /min Yoli Choudharynga PA-C Work Phone: [facility] [employer] [facility] 11-26-2023 08:47-0500 SaO2% (BldA) [Mass fraction] 96 % Yoli Choudharynga PA-C Work Phone: [facility] [employer] [facility] 11-26-2023 08:47-0500 Systolic blood pressure 108 mm[Hg] Yoli Choudharynga PA-C Work Phone: [facility] [employer] [facility] 11-06-2023 12:41-0500 Body height 157.5 cm [facility] [employer] [facility] 11-06-2023 12:41-0500 Body mass index (BMI) [Ratio] 57.02 kg/m2 [facility] [employer] [facility] 11-06-2023 12:41-0500 Body temperature 98.01 [degF] [facility] 11-06-2023 12:41-0500 Body weight 141.4 kg [facility] [employer] [facility] 11-06-2023 12:41-0500 Diastolic blood pressure 74 mm[Hg] [facility] [employer] [facility] 11-06-2023 12:41-0500 Heart rate 78 /min [facility] 11-06-2023 12:41-0500 Respiratory rate 18 /min [facility] 11-06-2023 12:41-0500 SaO2% (BldA) [Mass fraction] 98 % [facility] [employer] 11-06-2023 12:41-0500 Systolic blood pressure 145 mm[Hg] [facility] [employer] 10-14-2023 09:45-0500 Body height 157.48 cm Awais Oberer Other [employer] Other 10-14-2023 09:45-0500 Body mass index (BMI) [Ratio] 56.05 kg/m2 Awais Oberer Other [employer] Other 10-14-2023 09:45-0500 Body temperature 98.1 [degF] Awais Oberer Other [employer] Other 10-14-2023 09:45-0500 Body weight 139.03 kg Awais Oberer Other [employer] Other 10-14-2023 09:45-0500 Diastolic blood pressure 71 mm[Hg] Awais Oberer Other [employer] Other 10-14-2023 09:45-0500 Respiratory rate 18 /min Awais Oberer Other [employer] Other 10-14-2023 09:45-0500 SaO2% (BldA) [Mass fraction] 94 % Awais Oberer Other [employer] Other 10-14-2023 09:45-0500 Systolic blood pressure 118 mm[Hg] Awais Oberer Other [employer] Other 08-01-2023 11:57-0400 Diastolic blood pressure 72 mm[Hg] Terese Braxton MD Work Phone: [facility] 08-01-2023 11:57-0400 Systolic blood pressure 136 mm[Hg] Terese Braxton MD Work Phone: [facility] 08-01-2023 11:02-0400 Body height 157.5 cm Terese Braxton MD Work Phone: [facility] 08-01-2023 11:02-0400 Body mass index (BMI) [Ratio] 56.33 kg/m2 Terese Braxton MD Work Phone: [facility] 08-01-2023 11:02-0400 Body weight 139.71 kg Terese Braxton MD Work Phone: [facility] 08-01-2023 11:02-0400 Heart rate 70 /min Terese Braxton MD Work Phone: [facility] 07-15-2023 11:07-0400 Diastolic blood pressure 80 mm[Hg] Awais L Oberer Work Phone: [facility] DO Work Phone: 07-15-2023 11:07-0400 Systolic blood pressure 152 mm[Hg] Awais L Oberer Work Phone: [facility] 250 DO Work Phone: 07-15-2023 10:14-0400 Body height 158.75 cm Awais L Oberer Work Phone: [facility] 250 DO Work Phone: 07-15-2023 10:14-0400 Body mass index (BMI) [Ratio] 54.72 kg/m2 Awais L Oberer Work Phone: [facility] 250 DO Work Phone: 07-15-2023 10:14-0400 Body surface area Derived from formula 2.3 m2 Awais L Oberer Work Phone: [facility] 250 DO Work Phone: 07-15-2023 10:14-0400 Body weight 137.89 kg Awais L Oberer Work Phone: [facility] 250 DO Work Phone: 07-15-2023 10:14-0400 Diastolic blood pressure 102 mm[Hg] Awais L Oberer Work Phone: [facility] DO Work Phone: 07-15-2023 10:14-0400 Heart rate 82 /min Awais L Oberer Work Phone: [facility] 250 DO Work Phone: 07-15-2023 10:14-0400 Systolic blood pressure 160 mm[Hg] Awais L Oberer Work Phone: [facility] 250 DO Work Phone: 05-27-2023 10:30-0400 Body height 157.48 cm Connoronesimo Jaquez Other [employer] Other 05-27-2023 10:30-0400 Body mass index (BMI) [Ratio] 55.63 kg/m2 Connoronesimo Jaquez Other [employer] Other 05-27-2023 10:30-0400 Body temperature 97.5 [degF] Holly Jaquez Other [employer] Other 05-27-2023 10:30-0400 Body weight 137.99 kg Holly Makenzieban Other [employer] Other 05-27-2023 10:30-0400 Diastolic blood pressure 90 mm[Hg] Holly Banegasban Other [employer] Other 05-27-2023 10:30-0400 Respiratory rate 20 /min Connoronesimo Banegasban Other [employer] Other 05-27-2023 10:30-0400 SaO2% (BldA) [Mass fraction] 95 % Holly Jaquez Other [employer] Other 05-27-2023 10:30-0400 Systolic blood pressure 132 mm[Hg] Holly Jaquez Other [employer] Other 04-23-2023 09:15-0400 Body height 157.48 cm Awais Oberer Other [employer] Other 04-23-2023 09:15-0400 Body mass index (BMI) [Ratio] 55.47 kg/m2 Awais Oberer Other [employer] Other 04-23-2023 09:15-0400 Body temperature 98.7 [degF] Awais Oberer Other [employer] Other 04-23-2023 09:15-0400 Body weight 137.58 kg Awais Oberer Other [employer] Other 04-23-2023 09:15-0400 Diastolic blood pressure 69 mm[Hg] Awais Oberer Other [employer] Other 04-23-2023 09:15-0400 Respiratory rate 18 /min Awais Oberer Other [employer] Other 04-23-2023 09:15-0400 SaO2% (BldA) [Mass fraction] 95 % Awais Oberer Other [employer] Other 04-23-2023 09:15-0400 Systolic blood pressure 111 mm[Hg] Awais Oberer Other [facility] [employer] Other 03-28-2023 14:07-0400 Body temperature 97.8 [degF] DO Awais Oberer Work Phone: [facility] 03-28-2023 14:07-0400 Body weight 139.47 kg DO Awais Oberer Work Phone: [facility] 03-28-2023 14:07-0400 Diastolic blood pressure 80 mm[Hg] DO Awais Oberer Work Phone: [facility] 03-28-2023 14:07-0400 Heart rate 16 /min DO Awais Oberer Work Phone: [facility] 03-28-2023 14:07-0400 Respiratory rate 16 /min DO Awais Oberer Work Phone: [facility] 03-28-2023 14:07-0400 SaO2% (BldA) [Mass fraction] 94 % DO Awais Oberer Work Phone: [facility] 03-28-2023 14:07-0400 Systolic blood pressure 133 mm[Hg] DO Awais Oberer Work Phone: [facility] 02-13-2023 12:30-0400 56 1 Awais L Oberer Work Phone: [facility] [address] [place] Work Phone: Comment on above: [id number] 01-21-2023 12:35-0400 Body height 158.12 cm Awais L Oberer Work Phone: [facility] 250 DO Work Phone: 01-21-2023 12:35-0400 Body mass index (BMI) [Ratio] 55.33 kg/m2 Awais L Oberer Work Phone: [facility] 250 DO Work Phone: 01-21-2023 12:35-0400 Body surface area Derived from formula 2.29 m2 Awais L Oberer Work Phone: [facility] DO Work Phone: 01-21-2023 12:35-0400 Body weight 138.35 kg Awais L Oberer Work Phone: [facility] 250 DO Work Phone: 01-21-2023 12:35-0400 Diastolic blood pressure 86 mm[Hg] Awais L Oberer Work Phone: [facility] 250 DO Work Phone: 01-21-2023 12:35-0400 Heart rate 80 /min Awais L Oberer Work Phone: [facility] DO Work Phone: 01-21-2023 12:35-0400 Systolic blood pressure 132 mm[Hg] Awais L Oberer Work Phone: [facility] 250 DO Work Phone: 01-09-2023 14:30-0400 60 1 Awais L Oberer Work Phone: [facility] 250 DO Work Phone: Comment on above: [id number] 11-22-2022 11:47-0500 Body height 158.12 cm Awais L Oberer Work Phone: [facility] 250 DO Work Phone: 11-22-2022 11:47-0500 Body mass index (BMI) [Ratio] 54.61 kg/m2 Awais L Oberer Work Phone: [facility] DO Work Phone: 11-22-2022 11:47-0500 Body surface area Derived from formula 2.28 m2 Awais L Oberer Work Phone: [facility] DO Work Phone: 11-22-2022 11:47-0500 Body weight 136.53 kg Awais L Oberer Work Phone: [facility] 250 DO Work Phone: 11-22-2022 11:47-0500 Diastolic blood pressure 82 mm[Hg] Awais L Oberer Work Phone: [facility] DO Work Phone: 11-22-2022 11:47-0500 Diastolic blood pressure 72 mm[Hg] Awais L Oberer Work Phone: [facility] DO Work Phone: 11-22-2022 11:47-0500 Heart rate 86 /min Awais L Oberer Work Phone: [facility] DO Work Phone: 11-22-2022 11:47-0500 Systolic blood pressure 136 mm[Hg] Awais L Oberer Work Phone: [facility] 250 DO Work Phone: 11-22-2022 11:47-0500 Systolic blood pressure 132 mm[Hg] Awais L Oberer Work Phone: [facility] 250 DO Work Phone: 10-23-2022 14:15-0500 Body height 157.48 cm Awais Oberer Other [facility] [employer] Other 10-23-2022 14:15-0500 Body mass index (BMI) [Ratio] 56.78 kg/m2 Awais Oberer Other [facility] [employer] Other 10-23-2022 14:15-0500 Body temperature 98.2 [degF] Awais Oberer Other [employer] Other 10-23-2022 14:15-0500 Body weight 140.84 kg Awais Oberer Other [employer] Other 10-23-2022 14:15-0500 Diastolic blood pressure 76 mm[Hg] Awais Oberer Other [employer] Other 10-23-2022 14:15-0500 Respiratory rate 18 /min Awais Oberer Other [employer] Other 10-23-2022 14:15-0500 SaO2% (BldA) [Mass fraction] 97 % Awais Oberer Other [employer] Other 10-23-2022 14:15-0500 Systolic blood pressure 122 mm[Hg] Awias Oberer Other [employer] Other 01-18-2022 16:30-0400 Body height 157.48 cm Awais Oberer Other [employer] Other 01-18-2022 16:30-0400 Body mass index (BMI) [Ratio] 49.07 kg/m2 Awais Oberer Other [employer] Other 01-18-2022 16:30-0400 Body temperature 98.6 [degF] Awais Oberer Other [employer] Other 01-18-2022 16:30-0400 Body weight 121.7 kg Awais Oberer Other [employer] Other 01-18-2022 16:30-0400 Diastolic blood pressure 82 mm[Hg] Awais Oberer Other [employer] Other 01-18-2022 16:30-0400 Respiratory rate 18 /min Awais Oberer Other [employer] Other 01-18-2022 16:30-0400 SaO2% (BldA) [Mass fraction] 96 % Awais Oberer Other [employer] Other 01-18-2022 16:30-0400 Systolic blood pressure 111 mm[Hg] Waais Oberer Other [employer] Other 05-06-2018 14:11-0400 Body height 158.75 cm DO Awais Oberer Work Phone: [facility] Encounters Encounter Date Encounter Type Care Provider Facility Start: 02-18-2024 End: 02-18-2024 ambulatory [facility] Start: 02-10-2024 End: 02-10-2024 ambulatory [facility] Start: 02-10-2024 End: 02-10-2024 Office outpatient visit 25 minutes Terese Braxton MD Work Phone: [facility] Comment on above: S/P gastric bypass ( Primary Dx); Hypertensive heart disease without CHF; Hyperlipemia, mixed; Current every day smoker; Hypokalemia; Medication course changed; BMI 45.0-49.9, adult (Multi) Start: 12-23-2023 End: 12-23-2023 ambulatory JUANA BUSH [facility] Start: 12-16-2023 Telephone encounter Jaz corral RN Work Phone: [facility] Start: 11-26-2023 End: 11-26-2023 ambulatory [facility] Start: 11-26-2023 Encounter for other preprocedural examination [facility] Start: 11-26-2023 End: 11-26-2023 Postop follow up visit related to original px Yoli Cha PA-C Work Phone: [facility] Comment on above: History of Da-en-Y gastric bypass (Primary Dx); Postsurgical malabsorption; Malnutrition following gastrointestinal surgery; Vitamin D deficiency; Post-operative nausea and vomiting Start: 11-21-2023 End: 11-21-2023 Evaluation and management of inpatient JARROD Kincaid [facility] Start: 11-20-2023 End: 11-21-2023 Evaluation and management of inpatient LÓPEZ Freed [facility] Start: 11-19-2023 ambulatory Abena Henao Facility:[facility] Start: 11-13-2023 End: 11-14-2023 ambulatory [facility] Start: 11-13-2023 End: 11-13-2023 ambulatory [facility] Start: 11-06-2023 End: 11-06-2023 ambulatory [facility] Abdiaziz [facility] Start: 11-06-2023 End: 11-06-2023 Patient encounter procedure [facility] 1 [facility] Comment on above: Morbid obesity (CMS- HCC); Hypertension, unspecified type Start: 10-14-2023 End: 10-14-2023 ambulatory Awais Obmalissar Other [employer] Other Start: 10-14-2023 Office outpatient vi sit 40 minutes Awais Oberer [facility] Start: 10-14-2023 Telephone encounter Awais Oberedari [facility] Start: 08-01-2023 End: 08-01-2023 ambulatory [facility] Start: 08-01-2023 End: 08-01-2023 Office outpatient visit 15 minutes Terese Braxton MD Work Phone: [facility] Comment on above: Hypertensive heart d isease without CHF (Primary Dx); Encounter to discuss test results; SOB (shortness of breath); Hyperlipemia, mixed; Pre-diabetes; BMI 50.0-59.9, adult ([facility]); PVC (premature ventricular contraction); Current every day smoker Start: 07-25-2023 Chart Update Awais L Oberer Work Phone: [facility] 250 DO Work Phone: Start: 07-25-2023 End: 07-25-2023 ambulatory Terese Braxton Facility:[facility] Start: 07-25-2023 End: 07-25-2023 ambulatory DO Awais Oberer Work Phone: [facility] Work Phone: Start: 07-25-2023 End: 07-25-2023 Patient encounter procedure DO Awais Oberer Work Phone: [facility] Start: 07-23-2023 ambulatory Terese Braxton Facility:1 [id number] Start: 07-15-2023 Office outpatient vi sit 25 minutes Awais L Oberer Work Phone: [facility] 250 DO Work Phone: Start: 07-15-2023 Patient encounter procedure Ka rl L Oberer Work Phone: [facility] 250 DO Work Phone: Start: 07-15-2023 ambulatory Terese Braxton Facility:1 [id number] Start: 05-27-2023 End: 05-27-2023 ambulatory Holly Jaquez Other [employer] Other Start: 05-27-2023 Office outpatient ne w 45 minutes Holly Jaquez [facility] Start: 05-27-2023 Telephone encounter Holly Jaquez [facility] [employer] Start: 05-13-2023 End: 05-13-2023 ambulatory Awais Oberer Other [facility] [employer] Other Start: 05-13-2023 Telephone encounter Awais Oberer [facility] Start: 04-23-2023 Office outpatient vi sit 25 minutes Awais Oberer [facility] Start: 04-23-2023 Telephone encounter Awais Oberer [facility] Start: 04-23-2023 End: 04-23-2023 ambulatory Awais Oberer Facility:[facility] Start: 04-23-2023 End: 04-23-2023 ambulatory DO Awais Oberer Work Phone: [facility] Work Phone: Start: 04-23-2023 End: 04-23-2023 Patient encounter procedure DO Awais Oberer Work Phone: [facility] Start: 04-15-2023 End: 04-15-2023 ambulatory Awais Oberer Facility:[facility] Start: 04-15-2023 End: 04-15-2023 ambulatory DO Awais Oberer Work Phone: [facility] Work Phone: Start: 04-15-2023 End: 04-15-2023 Patient encounter procedure DO Awais Oberer Work Phone: [facility] [place] Work Phone: Start: 03-28-2023 End: 03-28-2023 ambulatory DO Awais Oberer Work Phone: [facility] Work Phone: Start: 03-28-2023 End: 03-28-2023 Registered Recurring DO Awais Oberer Work Phone: [facility] Work Phone: Start: 03-11-2023 End: 03-11-2023 ambulatory Cathy Covarrubias Other [employer] Other Start: 03-11-2023 Telephone encounter Cathy Covarrubias [facility] Start: 02-14-2023 Chart Update Awais L Oberer Work Phone: [facility] 250 DO Work Phone: Start: 02-14-[address] Terese Velasquez ty:[id number] Start: 02-13-[address] Terese Velasquez ty:[id number] Start: 02-13-2023 Patient encounter procedure Ka rl L Oberer Work Phone: [facility] [address] [place] Work Phone: Start: 01-26-2023 Chart Update Awais L Oberer Work Phone: [facility] 250 DO Work Phone: Start: 01-25-2023 End: 01-25-2023 ambulatory Terese Braxton Facility:[facility] Start: 01-25-2023 End: 01-25-2023 ambulatory DO Awais Oberer Work Phone: [facility] Work Phone: Start: 01-25-2023 End: 01-25-2023 Patient encounter procedure DO Awais Oberer Work Phone: [facility] Start: 01-21-2023 ambulatory Terese Braxton Facility:1 [id number] Start: 01-12-2023 Chart Update Awais L Oberer Work Phone: [facility] 250 DO Work Phone: Start: 01-09-[address] Terese Velasquez [id number] Start: 01-09-2023 End: 01-09-2023 ambulatory Terese Braxton Facility:[facility] Start: 01-09-2023 End: 01-09-2023 ambulatory DO Awais Oberer Work Phone: [facility] Work Phone: Start: 01-09-2023 End: 01-09-2023 Patient encounter procedure DO Awais Oberer Work Phone: [facility]-Lab [facility] Start: 12-07-2022 End: 12-07-2022 ambulatory Terese Braxton Facility:[facility] Start: 12-07-2022 End: 12-07-2022 ambulatory DO Awais Oberer Work Phone: [facility] Work Phone: Start: 12-07-2022 End: 12-07-2022 Patient encounter procedure DO Awais Oberer Work Phone: [facility]-Respiratory Therapy Work Phone: Start: 11-23-2022 Telephone encounter Awais L Obe rer Work Phone: -[facility] 250 DO Work Phone: Start: 11-22-2022 Office consultation new/estab patient 60 min Awais L Oberer Work Phone: [facility] Work Phone: Start: 11-22-2022 ambulatory Terese Braxton Facility:1 [id number] Start: 10-25-2022 End: 10-25-2022 ambulatory Awais Oberer Other [facility] [employer] Other Start: 10-25-2022 Telephone encounter Awais Oberer [facility] Start: 10-23-2022 End: 10-23-2022 Patient encounter procedure DO Awais Oberer Work Phone: [facility]-X-Ray [facility] Start: 10-23-2022 End: 10-23-2022 ambulatory DO Awais Oberer Work Phone: [facility] Work Phone: Start: 10-23-2022 Office outpatient vi sit 40 minutes Awais Oberer [facility] Start: 10-17-2022 End: 10-17-2022 ambulatory DO Awais Oberer Work Phone: [facility] Work Phone: Start: 10-17-2022 End: 10-17-2022 Patient encounter procedure DO Awais Oberer Work Phone: [facility]-Lab [facility] Start: 09-24-2022 End: 09-24-[address] DOCTOR BENTON Facility:H1 Start: 09-07-2022 End: 09-07-2022 ambulatory Awais Oberer Other [employer] Other Start: 09-07-2022 Telephone encounter [facility]be[facility] Start: 02-08-2022 End: 02-08-2022 ambulatory Awais Oberer Other [employer] Other Start: 02-08-2022 Telephone encounter Awais Oberer [facility] Start: 01-29-2022 End: 01-29-2022 ambulatory Awais Oberer Other [employer] Other Start: 01-29-2022 Telephone encounter [facility]ais [facility]berer [facility] Start: 01-18-2022 End: 01-18-2022 ambulatory Awais Oberer Other [employer] Other Start: 01-18-2022 Office outpatient vi sit 40 minutes Awais Oberer [facility] Procedures Date Procedure Procedure Detail Performing Clinician [...] 60+ years (1 - 1-dose 60+ series) [facility] Start: 12-23-2025 DTaP,Tdap and Td Vaccines (3 - Td or Tdap) DTaP,Tdap and Td Vaccines (3 - Td or Tdap) [facility] [employer] [facility] Start: 12-23-2025 DTaP/Tdap/Td Vaccine s (3 - Td or Tdap) DTaP/Tdap/Td Vaccines (3 - Td or Tdap) [facility] Start: 11-26-2024 Adult BMI Follow Up Plan Adult BMI F ollow Up Plan [facility] Start: 11-26-2024 Adult BMI Screening Adult BMI Screen ing [facility] Start: 11-26-2024 Tobacco Screening Tobacco Screening [facility] Start: 11-20-2024 Depression Screening Depression Scre ening [facility] Start: 11-06-2024 Adult BMI Screening Adult BMI Screen ing [facility] Start: 11-06-2024 Tobacco Screening Tobacco Screening [facility] Start: 08-13-2024 End: 08-13-2024 Patient encounter procedure 08/13/2024 10:30 AM EDT Office Visit [address] [place] [address] Terese Braxton MD [address] [place] [address] [address] [place], [place] [phone] [facility] Start: 06-28-2024 Influenza vaccination Influenz a Vaccine (Season Ended) [facility] Start: 02-26-2024 Adult BMI Follow Up Plan Adult BMI F ollow Up Plan [facility] Start: 02-18-2024 End: 02-18-2024 Patient encounter procedure [facility] General Surgery-Bariatric Start: 02-17-2024 End: 02-09-2025 Basic metabolic 2000 panel - Serum or Plasma Basic Metabolic Panel Lab Routine Hypertensive heart disease without CHF Hypokalemia Medication course changed Expected: 02/17/2024 (Approximate), Expires: 02/09/2025 [facility] Service Area Work Phone: Comment on above: Expected: 02/17/2024 (Approximate), Expires: 02/09/2025 Start: 02-10-2024 End: 02-10-2024 Patient encounter procedure 02/10/2024 10:30 AM EDT Office Visit [address] [place] [address] Terese Braxton MD [address] [place] [address] [address] [place] [phone] [place] Start: 02-03-2024 End: 11-22-2024 CBC W Auto Differential panel - Blood CBC auto differential Lab Routine 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 History of Da-en-Y gastric bypass Expected: 02/03/2024 (Approximate), Expires: 11/22/2024 [employer] Work Phone: Comment on above: Expected: 02/03/2024 (Approximate), Expires: 11/22/2024 Start: 02-03-2024 End: 11-22-2024 Cyanocobalamin vitamin b-12 Vitamin B12 Lab Routine 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 History of Da-en-Y gastric bypass Expected: 02/03/2024 (Approximate), Expires: 11/22/2024 [employer] Comment on above: Expected: 02/03/2024 (Approximate), Expires: 11/22/2024 Start: 02-03-2024 End: 11-22-2024 Folate Folate Lab Routine 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 History of Da-en-Y gastric bypass Expected: 02/03/2024 (Approximate), Expires: 11/22/2024 [employer] Comment on above: Expected: 02/03/2024 (Approximate), Expires: 11/22/2024 Start: 02-03-2024 End: 11-22-2024 Iron [Mass/volume] in Serum or Plasma Iron Lab Routine 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 History of Da-en-Y gastric bypass Expected: 02/03/2024 (Approximate), Expires: 11/22/2024 [employer] Comment on above: Expected: 02/03/2024 (Approximate), Expires: 11/22/2024 Start: 02-03-2024 End: 11-22-2024 Liver panel Liver panel Lab Routine 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 History of Da-en-Y gastric bypass Expected: 02/03/2024 (Approximate), Expires: 11/22/2024 [employer] Comment on above: Expected: 02/03/2024 (Approximate), Expires: 11/22/2024 Start: 02-03-2024 End: 11-22-2024 Thiamin Vitamin B1, whole blood Thiamin Vitamin B1, whole blood Lab Routine 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 History of Da-en-Y gastric bypass Expected: 02/03/2024 (Approximate), Expires: 11/22/2024 [facility] Comment on above: Expected: 02/03/2024 (Approximate), Expires: 11/22/2024 Start: 02-03-2024 End: 11-22-2024 Vitamin D 25 hydroxy Vitamin D 25 hydroxy Lab Routine 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 History of Da-en-Y gastric bypass Expected: 02/03/2024 (Approximate), Expires: 11/22/2024 [facility] Comment on above: Expected: 02/03/2024 (Approximate), Expires: 11/22/2024 Start: 12-23-2023 End: 12-23-2023 ambulatory 12/23/2023 1:00 PM EST Support Visit [facility] [address] [place] [phone] Juana Bush LD [facility] Start: 11-26-2023 End: 11-26-2023 Patient encounter procedure 11/26/2023 8:30 AM EST [facility] [address] [place] [phone] Yoli Cha PA-C [address] [place] [id number] [facility] Start: 11-26-2023 End: 11-26-2023 ambulatory 11/26/2023 8:00 AM EST Support Visit [facility] [address] [place] [phone] Melissa Muro RD [facility] Start: 11-20-2023 End: 11-20-2023 Admission to same day surgery center 11/20/2023 9:30 AM EST - 11/20/2023 11:30 AM EST Surgery [address] [phone] López Kidd MD [address] [facility] [address] [place] [address] [facility]IN[facility] BYPASS GASTRIC DA EN Y [93908 (CPT )] [facility] Surgery Comment on above: DAVINCI BYPASS GASTR IC DA EN Y [74326 (CPT )] Start: 11-20-2023 End: 11-20-2023 Laps gstr rstcv px w/byp da-en-y limb <150 cm DAVINCI BYPASS GASTR[employer] DA EN Y MORBID OBESITY, HYPERTENSION 11/20/2023 9:30 AM EST [facility] Start: 11-20-2023 Subsequent hospital visit by physician 11/20/2023 9:30 AM EST Hospital Encounter [address] [phone] López Kidd MD [address] [facility] [address] [place] [address] [facility] Start: 11-13-2023 End: 11-13-2023 Admission to same day surgery center 11/13/2023 8:00 AM EST Support Visit [facility] [address] [place] [phone] [facility] Start: 08-01-2023 End: 08-01-2024 Comprehensive metabolic 2000 panel - Serum or Plasma Comprehensive metabolic panel Lab Routine Hypertensive heart disease without CHF SOB (shortness of breath) Hyperlipemia, mixed Pre-diabetes BMI 50.0-59.9, adult (CMS/HCC) PVC (premature ventricular contraction) Current every day smoker Expected: 08/01/2023 (Approximate), Expires: 08/01/2024 [facility] Service Area Work Phone: Comment on above: Expected: 08/01/2023 (Approximate), Expires: 08/01/2024 Start: 08-01-2023 End: 08-01-2024 Hemoglobin A1c/Hemoglobin.total in Blood Hemoglobin A1C Lab Routine Hypertensive heart disease without CHF SOB (shortness of breath) Hyperlipemia, mixed Pre-diabetes BMI 50.0-59.9, adult (CMS/HCC) PVC (premature ventricular contraction) Current every day smoker Expected: 08/01/2023 (Approximate), Expires: 08/01/2024 [facility] Work Phone: Comment on above: Expected: 08/01/2023 (Approximate), Expires: 08/01/2024 Start: 08-01-2023 End: 08-01-2024 Lipid 1996 panel - Serum or Plasma Lipid Panel Lab Routine Hypertensive heart disease without CHF SOB (shortness of breath) Hyperlipemia, mixed Pre-diabetes BMI 50.0-59.9, adult (CMS/HCC) PVC (premature ventricular contraction) Current every day smoker Expected: 08/01/2023 (Approximate), Expires: 08/01/2024 [facility] Work Phone: Comment on above: Expected: 08/01/2023 (Approximate), Expires: 08/01/2024 Start: 07-23-2023 HOLTER 48, Provider: [employer]ON [employer] OFFICER 1,[id number], Status: Pen, Time: 10:00 AM HOLTER 48, Provider: [employer] OFFICER 1,[id number], Status: Pen, Time: 10:00 AM [facility] 250 DO Work Phone: Start: 07-15-2023 FUV, Provider: Terese Braxton, Status: Pen, Time: 10:30 AM FUV, Provider: Terese Braxton, Status: Pen, Time: 10:30 AM [facility] 250 DO Work Phone: Start: 06-28-2023 COVID-19 Vaccine (2022- season) COVID-19 Vaccine (2022-24 season) [facility] Start: 06-28-2023 Influenza vaccination [facility] Start: 02-14-2023 REST ONLY, Provider: MELVINA HHVI NUCLEAR 01,[id number], Status: Pen, Time: 12:30 PM REST ONLY, Provider: MELVINA HHVI NUCLEAR 01,[id number], Status: Pen, Time: 12:30 PM -[facility] 250 DO Work Phone: Start: 02-13-2023 STRESSNUC2, Provider : MELVINA HHVI NUCLEAR 01,[id number], Status: Pen, Time: 12:30 PM STRESSNUC2, Provider: MELVINA HHVI NUCLEAR 01,[id number], Status: Pen, Time: 12:30 PM -[facility] 250 DO Work Phone: Start: 01-21-2023 FUV, Provider: Terese Braxton, Status: Pen, Time: 12:30 PM FUV, Provider: Terese Braxton, Status: Pen, Time: 12:30 PM -[facility] 250 DO Work Phone: Start: 01-09-2023 ECHO, Provider: AME GABRIEL HHVI ULTRASOUND 01,[id number], Status: Pen, Time: 2:30 PM ECHO, Provider: MELVINA HHVI ULTRASOUND 01,[id number], Status: Pen, Time: 2:30 PM -[facility] 250 DO Work Phone: Start: 2017 Administration of varicella zoster vaccine Zoster (Shingles) Vaccine (1 of 2) [employer] Start: 2017 Zoster Vaccines (1 of 2) Zoster Vacc ken (1 of 2) [facility] Start: 01-20-2016 Hepatitis B Vaccines (2 of 3 - 19+ 3-dose series) Hepatitis B Vaccines (2 of 3 - 19+ 3-dose series) [facility] Start: 2007 Screening for malign ant neoplasm of breast Mammogram [facility] Start: 1988 Screening for malign ant neoplasm of cervix [facility] Start: 1985 Diabetes mellitus screening Diabetes Screening [facility] Start: 1985 Hepatitis C screening Hepatitis C Sc [place] [facility] Start: 1979 Depression Screening Depression Scre [facility] Start: 1973 Pneumococcal Vaccine : Pediatrics (0 to 5 Years) and At-Risk Patients (6 to 64 Years) (1 - PCV) Pneumococcal Vaccine: Pediatrics (0 to 5 Years) and At-Risk Patients (6 to 64 Years) (1 - PCV) [facility] Start: 1973 Pneumococcal Vaccine : Pediatrics (0 to 5 Years) and At-Risk Patients (6 to 64 Years) (1 of 2 - PCV) Pneumococcal Vaccine: Pediatrics (0 to 5 Years) and At-Risk Patients (6 to 64 Years) (1 of 2 - PCV) [facility] Start: 1968 MMR Vaccines (1 of 1 - Standard series) MMR Vaccines (1 of 1 - Standard series) [facility] Start: 1967 COVID-19 Vaccine (#1) COVID-19 Vacci ne (#1) [facility] Start: 1967 HIV screening [facility] Start: 1967 Lipid panel Lipid Panel [facility] Start: 1967 Screening for malign ant neoplasm of colon [facility] Start: 1967 Yearly Adult Physical Yearly Adult P hysical [facility] Thiamine [Mass/volum e] in Blood Thiamin Vitamin B1, whole blood Lab Routine Morbid obesity (CMS-HCC) Hypertension, unspecified type 11/06/2023 1:20 PM EST [facility] Work Phone: Thiamine [Moles/volu me] in Blood [facility] Immunizations Immunization Date Immunization Notes Care Provider Juany nguyen 12-23-2015 hepatitis B vaccine, adult dosage Awais Bright Other [employer] Other 12-23-2015 influenza, seasonal, injectable [facility] Work Phone: 12-23-2015 tetanus toxoid, reduced diphtheria toxoid, and acellular pertussis vaccine, adsorbed Awais L Oberer Work Phone: [facility] DO Work Phone: 12-23-2015 influenza virus vaccine, unspecified formulation Terese Braxton MD Work Phone: [facility] Work Phone: 06-23-2014 tetanus toxoid, reduced diphtheria toxoid, and acellular pertussis vaccine, adsorbed Awais Oberer Other [employer] Other 06-25-1994 influenza, seasonal, injectable Awais Oberer Other [employer] Other NEGATED: Highlighted row has not occurred!01-18-2022 influenza, seasonal, injectable Awais Oberer Other [employer] Other NEGATED: Highlighted row has not occurred!12-30-2020 influenza, seasonal, injectable Patient Objection Awais Oberer Other [employer] Other NEGATED: Highlighted row has not occurred!09-20-2020 influenza, seasonal, injectable Patient Objection Awais Oberer Other [employer] Other NEGATED: Highlighted row has not occurred!08-06-2019 influenza, seasonal, injectable Patient Objection Awais Oberer Other [employer] Other Payers Date Payer Category Payer Medicaid [facility] O [id number] 2023-Present [phone] [address] [place] [address] [id number] 2022 Self-pay [id number] 2021 Medicaid [id number] 2021 Unknown 1967 Unknown [id number] 2.16.840.1.119566.3.579.2.593 1967 Unknown [id number] 2.16.840.1.447979.3.579.2.1068 1967 Unknown [id number] 2.16.840.1.851302.3.579.2.1068 1967 Unknown [id number] 2.16.840.1.466322.3.579.2.1068 1967 Unknown [id number] 2.16.840.1.330305.3.579.2.1068 1967 Unknown [id number] 2.16.840.1.987528.3.579.2.356 1967 Unknown [id number] 2.16.840.1.963362.3.579.2.356 1967 Unknown [id number] 2.16.840.1.303489.3.579.2.356 1967 Unknown [id number] 2.16.840.1.008667.3.579.2.356 1967 Unknown [id number] 2.16.840.1.562760.3.579.2.1244 1967 Unknown [id number] 2.16.840.1.717460.3.579.2.1244 1967 Unknown [id number] 2.16.840.1.127447.3.579.2.1286 1967 Unknown [id number] 2.16.840.1.571272.3.579.2.1286 1967 Unknown [id number] 2.16.840.1.283156.3.579.2.1285 1967 Unknown [id number] 2.16.840.1.000564.3.579.2.1285 1967 Unknown [id number] 2.16.840.1.499537.3.579.2.1285 1967 Unknown [id number] 2.16.840.1.469013.3.579.2.1285 1967 Unknown [id number] 2.16.840.1.800362.3.579.2.1285 1967 Unknown [id number] 2.16.840.1.388567.3.579.2.1285 1967 Unknown [id number] 2.16.840.1.764450.3.579.2.1285 1967 Unknown [id number] 2.16840.1.871251.3.579.2.128 1959 Unknown [id number] 2.16.840.1.652480.19 Unknown [id number] 2.16.840.1.202522.3.579.2.531 Unknown [id number] 2.16.840.1.208381.3.579.2.531 Unknown [id number] 2.16.840.1.123107.3.579.2.531 Unknown [id number] 2.16.840.1.768899.3.579.2.531 Unknown [id number] 2.16.840.1.226634.3.579.2.531 Unknown [id number] 2.16840.1.673334.3.579.2.531 Unknown [id number] 2.16840.1.775055.3.579.2.531 Social History Date Type Detail Facility Unknown if ever smoked [employer] Other Start: 08-01-2023 End: 02-10-2024 Sex Assigned At [facility] [employer] Other Start: 01-30-2021 End: 10-28-2022 Tobacco smoking status NHIS Smoker (finding) [facility] Start: 1965 Sex Assigned At Female F [facility] Start: 08-01-2023 End: 02-10-2024 No illicit drug use No illicit drug use -[facility] 250 DO Work Phone: Comment on above: 1 PPD; 1-5 CIGGS DAILY; Start: 08-01-2023 [facility] Work Phone: End: 10-28-2022 History of tobacco use Cigarette Smoker [facility] Work Phone: Start: 08-01-2023 Tobacco use and exposure Former smokeless tobacco user [facility] Work Phone: Start: 08-01-2023 End: 11-06-2023 Alcohol intake Current drinker of alcohol (finding) [facility] Work Phone: Start: 08-01-2023 Tobacco Comment vape [facility] Work Phone: Start: 02-07-2023 End: 08-01-2023 Alcohol Comment social [facility] Work Phone: Start: 1965 Sex Assigned At Not on file [facility] Work Phone: Start: 07-22-2023 End: 02-10-2024 Exposure to SARS-CoV-2 (event) Not sure [facility] Start: 11-06-2023 [facility] Start: 11-06-2023 Tobacco use and exposure Smokeless tobacco non-user [facility] Housing Instability Unknown [facility] Start: 11-26-2023 End: 02-10-2024 Alcohol intake Ex-drinker (finding) [facility] How often to you hav e a drink containing alcohol? Monthly or less [facility] How many standard drinks containing alcohol do you have on a typical day? 1 or 2 [facility] How often do you hav e 6 or more drinks on 1 occasion? Never [facility] Start: 02-10-2024 Gender identity Identifies as female gender (misty) [facility] Work Phone: Start: 02-10-2024 Sexual orientation Heterosexual (codey samson) [facility] Work Phone: Clinical Notes 10-28-2008 to [...] redirect to the Timeline version of the [employer]. Wt Readings from Last 3 Encounters: [...] oral, Daily, Do not crush or chew. [id number] fumarate-FA () 28-800 mg-mcg tablet rosuvastatin (CRESTOR) [...] Terese Braxton MD. documented in this encounter [facility] Work Phone: 02-10-2024 Instructions Melquiades Ahmadi [...] of your visit. documented in this encounter [facility] Work Phone: 12-16-2023 Miscellaneous Notes Patient needed new RX for vitamins due to having surgery 10/2023. Patient states insurance will pay for vitamins now that she has had surgery. New RX entered. documented in this encounter [facility] 12-16-2023 Telephone encounter Note Patient needed new RX for vitamins due to having surgery 10/2023. Patient states insurance will pay for vitamins now that she has had surgery. [facility] RX [facility]. [facility] 11-26-2023 History of Present illness Narrative Summary: One week s/p RYBG, [place], Dr. Kidd Images from the original note were not included. [facility] GENERAL SURGERY-BARIATRIC [address] [place] [phone] Subjective Patient ID: Paige Mccarty is a [...] Weight and Comorbid Conditions: 1. 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 The [place] [employer] recommends a Vitamin D [...] and its performance characteristics determined by [facility]'s [facility] [place] ([facility] It has not been cleared or approved by the FDA. [facility] is regulated under CLIA as qualified to perform high-complexity testing. This test is used for clinical purposes. It should not be regarded as investigational or for research. Test Performed By: [place] [id number] Scrap Burner: Alfredo Chu III, M.D. CLIA #[id number]^ Vitals and Bariatric Vitals: Vitals: 11/26/23 0847 [...] Check blood pressure at home and contact shampoo person or PCP regarding dosing of lisinopril. Labs reviewed with patient. Vitamin D deficiency - supplement and recheck in 3 months Lifelong avoidance of all NSAIDs and tobacco products to reduce risk of anastomotic ulcer formation. Continue PNV or MVT, calcium and vitamin B12 for life Follow up with payroll bookkeeper at 6 weeks postop Follow up labs at 3 months, draw labs one week before appointment Follow up with NURSE ORTHO/PA at 3 months Yoli Cha PA-C 11/26/23 1101 documented [facility] this encounter [facility] 11-26-2023 Instructions Yoli Cha PA-C - [...] daily and anytime you feel dizzy. Contact shampoo person or PCP regarding dosing of blood pressure medication. Continue PNV or MVT, calcium and vitamin B12 for life Follow up with payroll bookkeeper at 6 weeks postop Follow up labs at 3 months, draw labs one week before appointment Follow up with NURSE ORTHO/PA at 3 months documented in this encounter [facility] History and physical note PRE-ADMISSION TESTING HISTORY AND PHYSICAL EXAM DATE: 11/06/23 PCP: Awais Bright DO HISTORY OF PRESENT ILLNESS: Paige Mccarty, a 58 y.o. White or female, presents to [facility] for a pre-surgical H&P. 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 Henao intake man- will receive DDAVP infusion the day before [...] the most recent lab values available in [facility] at the time of the office visit and additional labs may have been drawn since that time. ASSESSMENT / DIAGNOSIS: MORBID OBESITY, HYPERTENSION PLAN: Paige Mccarty is scheduled for Davinci Bypass Gastric Da En Y on 11/20/[address] Kidd. DELMAR Harden 11/06/23 1503 [employer] Work Phone: 11-06-2023 History and physical note PRE-ADMISSION TESTING HISTORY AND PHYSICAL EXAM DATE: 11/06/23 PCP: Awais Bright DO HISTORY OF PRESENT ILLNESS: Paige Mccarty, a 58 y.o. White or female, presents to [facility] for a pre-surgical H&P. 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 Henao intake man- will receive DDAVP infusion the day before [...] the most recent lab values available in [facility] at the time of the office visit and additional labs may have been drawn since that time. ASSESSMENT / DIAGNOSIS: MORBID OBESITY, HYPERTENSION PLAN: Paige Mccarty is scheduled for Davinci Bypass Gastric Da En Y on 11/20/[address] Kidd. DELMAR Harden 11/06/23 1503 documented in this encounter [employer] 11-06-2023 Instructions Adrianne Peoples RN - 11/06/2023 [...] clean clothes. Your surgery/procedure is scheduled at [facility] on 11-20-2023 at 9:30am Arrival Time 7:30am [facility] Address: [address] [place] [address] Park in [address]1 Parking lot located on [facility]. Report to the Entrance B. Check in at the information desk the surgery. The waiting room located on the second floor. If you have any questions prior to surgery, please call Pre-Admission Clinic at [phone] between 7:30 am and 4:30 pm Saturday through Saturday. If you have questions the morning of surgery, please call the Pre-op Department at [phone]. PLEASE FOLLOW THESE INSTRUCTIONS OR YOUR SURGERY [...] would like to schedule therapy at a [facility] facility, please call [phone] ([phone]). Do not use lotions, creams, powders, perfume, make up, cologne or after-shaves day of surgery. Remove ALL jewelry including wedding rings, body piercings,hair extensions that contain metal, nail faroese, make-up, and contact lens. You may brush [...] RIGHTS AND RESPONSIBILITIES As a patient at [facility], you have the right to: Receive medical care and be informed of who is taking care of you Be treated with dignity and respect Have a family member/senior sales representative of choice and your physician notified of your admission Receive information and actively participate in decisions about your care and treatment Refuse care, treatment and services Decide who may provide your support and speak for you Access jainism and spiritual services Participate in ethical issues [...] of hospital charges and payment methods Patient/patient senior sales representative responsibilities are to: Provide information about [...] promptly as possible documented in this encounter [facility] 10-14-2023 Evaluation note Encounter Date Diagnosis Assessment Notes Sep, Mixed hyperlipidemia (ICD-10 - E78.2) [facility] Other 12-18-2023 Evaluation note* Encounter Date Diagnosis [...] profile, hemoglobin A1c and sooner as needed [facility] Other 10-05-2023 History of Present illness Narrative* [...] ratio from my perspective. documented in this [facility] Work Phone: 1(439) 742-344110-05-2023 Instructions* Patient Instructions* Melquiades Ahmadi MA - 08/01/2023 10:30 AM EDT Please bring all medicines, vitamins, and herbal supplements with you when you come to the office. Prescriptions will not be filled unless you are compliant with your follow up appointments or have a follow up appointment scheduled as per instruction of your physician. Refills should be requested at the time of your visit. [facility]: 1(423) 233-910207-31-2023 Evaluation note* Encounter Date Diagnosis Assessment Notes [...] Apr, Morbid obesity (ICD- 10 - E66.01) [facility] Other 06-29-2023 Reason for visit Narrative1-2 MONTH/labs, [...] Ozempic and cover 2 different bariatric programs., [place] [facility], [place], done at [facility] in February, [facility] hematology, BP, , [facility] [employer] Other 06-27-2023 Evaluation note* Encounter Date Diagnosis Assessment Notes Treatment Notes Treatment Clinical Notes Mar, Moderate persistent asthma without complication (ICD-10 - J45.40) Mar, Primary osteoarthritis of left knee (ICD-10 - M17.12) [facility] Other 06-27-2023 Evaluation note* Encounter Date Diagnosis [...] order her mammograms to be done at [facility] Macrina Sunifer 04/23/2023 11:33:16 AM > 05.15.23 mammogram order faxed to [facility] , Health screenings for women material was [...] Last visit I referred her to the [facility] medical bariatric clinic to see if she [...] lab panel because of her medical complexity. [facility] Other 03-01-2023 History of Present illness Narrative* [...] Scheduled for bariatric surgery next month in [place], going through different aspects of work-up. * [...] results, can continue current dose of atorvastatin. -[facility] 250 DO Work Phone: 1(487) 953-737912-29-2022 Evaluation note* Encounter Date Diagnosis Assessment Notes Treatment Notes Treatment Clinical Notes Sep, Essential (primary) hypertension (ICD-10 - I10) [facility] [employer] Other 12-27-2022 Evaluation note* Encounter Date Diagnosis [...] pulmonary, etc. We will send for her pre-[facility] emergency room notes and chest x-ray. In light of her significant symptoms, we will also obtain another chest x-ray today. Also refer to [facility]. Discussed consider cardiac component. She does have [...] sooner as needed., Hydrochlorothiazide material was published [facility] Other 11-11-2022 Evaluation note* Encounter Date Diagnosis Assessment Notes Treatment Notes Treatment Clinical Notes Aug, Moderate persistent asthma without complication (ICD-10 - J45.40) Aug, Essential (primary) hypertension (ICD-10 - I10) Aug, Primary osteoarthritis of left knee (ICD-10 - M17.12) Aug, GERD (gastroesophageal reflux disease) (ICD-10 - K21.9) [facility] Other 03-24-2022 Evaluation note* Encounter Date Diagnosis [...] or pending above, Omeprazole material was published [facility] Other 07-10-2018 Progress note Author Casey Oliveira [facility] May 06, 2018 2:37pm Note Date/Time May 06, 2018 2:28 pm [facility] at [address] [address] Hem/Onc Follow Up Note - OP Signed Patient: Paige Mccarty MR#: [id number] : 1965 Acct:[id number] Age/Sex: 53 / F Type: REG RCR [...] of Therapies Summary of Therapies: 1. DDAVP (0.3mcg/tbo456=06zds, round to 40mcg) IV, prn, 30 min [...] planned. -If surgery is needed, consider DDAVP (0.3mcg/mft371=33vha, round to 40mcg) IV, prn 30 min prior to surgery. Watch hyponatremia. -If she developed excessive bleeding, consider 2 units of pooled platelets. Repeat dose of DDAVP can be given. (2) Thrombocytopenia Status: Chronic likely immune-related. Platelet count normalized. -See as needed. - Time Spent with Patient Greater than 50% of time spent with patient was for coordination of care (as documented) and mcfm-zq-qidt counseling of patient and/or family. less than 15 minutes Dictated By: Casey Oliveira MD DD/ 142 Signed By: <Electronically signed by Casey Oliveira MD> 05/06/18 143 [facility] Work Phone: 1(448) 257-247401-01-2009 History general Narrative - Reported* Type Description [...] Hospitalization History EGD (neg)- Dr. Avery 11/2007 [facility] Other Consult note Author Abena Henao [facility] March 28, 2023 8:36pm Note Date/Time March 28, 2023 2:15p m [facility] at [address] [address] Hem/Onc Consult Note - OP Signed Patient: Paige Mccarty MR#: [id number] : 1965 Acct:[id number] Age/Sex: 57 / F Type: REG RCR [...] her surgeon Dr. López [facility]idd [facility] [place] [facility] to inform us [...] of Therapies Summary of Therapies: 1. DDAVP (0.3mcg/rfo297=35ovr, round to 40mcg) IV, prn, 30 min before surgery. 2. Plan to give DDAVP (0.3mcg/pfw016=79pxu, round to 40mcg) Subjective/ROS - Narrative: CONSTITUTIONAL: [...] DDAVP. -With prior surgery, she received DDAVP (0.3mcg/hku346=79rvy, round to 40mcg) IV, prn 30 min [...] for bariatric surgeon Dr. López Kidd in [place]. (3) Encounter for coordination of complex care Will complete DDAVP infusion orders when I am notified of surgical date. - Time with Patient Total Time Spent with Patient (Consult): 60 mins or more - High complexity 90 minute visit for reviewing extensive prior records since initial consultation [id number], surgical clearance form, preparation of DDAVP orders once surgical date isgiven. Coordination of Care & Counseling Time: Greater than 50% of time spent with patient was for coordination of care (as documented) and zfec-tr-bcfu counseling of patient and/or family. Dictated By: Abena Henao MD DD/ 1413 Signed By: <Electronically signed by MD Abena Henao> 03/28/232035 [facility] Work Phone: Evaluation noteNo [facility]Nort [employer] Other Evaluation noteNo assessment information available [facility] Work Phone: Evaluation note* Diagnosis Onset Date Resolution Status Delta storage pool disease c hronic Thrombocytopenia chronic [facility] Work Phone: Evaluation note* Diagnosis Onset Date Resolution Status Delta storage pool disease c hronic Encounter for coordination of complex care chronic Morbid obesity with BMI of 50.0-59.9, adult chronic Thrombocytopenia chronic [facility] Work Phone: Evaluation note* Diagnosis Hypertensive heart disease without CHF- Primary Encounter to discuss test results Other specified counseling SOB (shortness of breath) Shortness of breath Hyperlipemia, mixed Mixed hyperlipidemia Pre-diabetes Other abnormal glucose BMI 50.0-59.9, adult ([facility]) PVC (premature ventricular contraction) Other premature beats Current every day smoker documented in this encounter [facility] Work Phone: Evaluation note* Diagnosis Morbid obesity ([facility]) Morbid obesity Hypertension, unspecified type [facility] Diagnosis 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 Other and unspecified postsurgical nonabsorption Vitamin D deficiency Post-operative nausea and vomiting Nausea with vomiting documented [facility] Diagnosis Postsurgical malabsorption- Primary Malnutrition following gastrointestinal surgery Other and unspecified postsurgical nonabsorption History of Da-en-Y gastric bypass documented [facility]* Diagnosis S/P gastric bypass- Primary Bariatric surgery status Hypertensive heart disease without CHF Hyperlipemia, mixed Mixed hyperlipidemia Current every day smoker Hypokalemia Hypopotassemia Medication course changed BMI 45.0-49.9, adult ([facility]) documented in this encounter [facility] Work Phone: History of Present illness [...] be evaluated in the emergency department at [place] she is on multiple inhalers. She reports [...] shows sinus rhythm at 86 bpm with TX interval of 170 ms QRS duration 96 [...] * Sincerely, * Terese Braxton MD [facility] * Addendum, this patient would benefit from statin therapy. Her LDL goal would be closer to 70 would recommend rosuvastatin 40 mg daily with lipid and liver to be checked 3 months after. [facility] Work Phone: History of Present illness Narrative* [...] * 20. BNP level 16 January 2023 [facility] 250 DO Work Phone: InstructionsNot on filedocumented in this encounter [employer] SystemReason for referral (narrative)* Reason DYSPNEA Diagnosis 1 Dyspnea (R06.00) Referral Organization [facility] Lela Velasquez Referring Provider First Name Awais Referring Provider Last Name Johanna Referring Provider Specialty Family Prac jennifer Referred Organization [facility] enter Referred Provider Dung Marcial Referred Address [address] ,[place], [place],[address] Referred Provider Specialty Cardiology Referral Priority Routine Referral Appointment Date 2022-11-22 General Notes Greta Camilo 2021 01:53:19 PM >referral sent [facility] Other Reason for referral (narrative)* Consultation (Routine) - Authorized Specialty Diagnoses / Procedures Referred By Shirley lopez Referred To Contact Cardiology Diagnoses Hypertensive heart disease without CHF Procedures Follow Up In Cardiology Terese Braxton MD [address] [facility] [address] [place] [address] Referral ID Status Reason Start Date Expiration Date V isits Requested Visits Authorized [id number] Authorized 08/01/2023 01/28/2024 1 1 [facility] Work Phone: Summary Purpose Family History [...] Diagnoses Hyperlipemia, mixed Terese Braxton MD [address] [address] Referral ID Status Reason Start Date Expiration Date Visits Re quested Visits Authorized [id number] Closed 1 1 Specialty Diagnoses / Procedures Referred By Contac t Referred To Contact Cardiology Diagnoses Hypertensive heart disease without CHF Procedures Follow Up In Cardiology Terese Braxton MD [address] [place] [address] [address] [place] [address] Terese Braxton MD [address] [place] [address] [address] [place] [address] Referral ID Status Reason Start Date Expiration Date V isits Requested Visits Authorized [id number] Authorized 02/10/2024 02/09/2025 1 1 Additional Source Comments REASON FOR VISIT (unrecogniz ed section and content) Reason Comments Results Testing results Reason Comments Post-op 1 week bypass post-o p. 11-20-23 Reason Comments Follow-up 6m Specialty Diagnoses / Procedures Referred By Contac t Referred To Contact Cardiology Diagnoses Hypertensive heart disease without CHF Procedures Follow Up In Cardiology Terese Braxton MD [address] [place] [address] Referral ID Status Reason Start Date Expiration Date Visits Re quested Visits Authorized [id number] Closed 08/01/2023 01/28/2024 1 1 INFORMATION SOURCE (unrecogn ized section and content) DATE CREATED AUTHOR 09/27/2022 [facility] DATE CREATED AUTHOR AUTHOR'S ORGANIZ ATION 05/04/2023 [facility] DATE CREATED AUTHOR AUTHOR'S ORGANIZ ATION 07/31/2023 [facility] DATE CREATED AUTHOR AUTHOR'S ORGANIZ ATION 08/04/2023 [employer] DATE CREATED AUTHOR AUTHOR'S ORGANIZ ATION 11/30/2023 [facility] DATE CREATED AUTHOR AUTHOR'S ORGANIZ ATION 02/15/2024 [facility] DATE CREATED AUTHOR AUTHOR'S ORGANIZ ATION 02/19/2024 [facility] Care Teams (unrecognized sec tion and content) [...] Active López Kidd MD Referring Provider Active [employer] Relationship Specialty [place] [address] [place] [address] [place] [address] PCP - General 11/22/22 [employer] Relationship Specialty Start Date End Date Johanna Awais [address] [place], [place] [id number] PCP - General Family Medicine 03/13/23 [employer] Relationship Specialty Start Date End Date Johanna Awais [address] [place] [address] PCP - General Family Medicine 03/13/23 [employer] Relationship Specialty Start Date End Date Johanna AwaisDO kaylin [address] [place], [place] [id number] PCP - General Family Medicine 03/13/23 [employer] Relationship Specialty Start Date End Date Awias Bright DO [address] [facility]. [facility] [place] [address] PCP - General Family Medicine 02/10/24 Goals [...] BE BASED ON THE PRIMARY CLINICAL RECORDS. [employer] [facility]. provides no warranty or guarantee of the accuracy or completeness of information in this document.
[2024-04-07 11:16] LABS: Basophils Percent Auto 0.4 % (0.2-2.0); Eosinophils Absolute Auto 0.1 10^3/uL (0.0-0.7); Eosinophils Percent Auto 1.4 % (0.9-7.0); Hematocrit 42.2 % (36.0-48.0); Immature Granulocytes Abs Auto 0.02 10^3/uL (0.00-0.03); Immature Granulocytes Pct Auto 0.3 % (0.0-0.5); Lymphocytes Absolute Auto 2.3 10^3/uL (1.2-3.8); Lymphocytes Percent Auto 33.4 % (20.5-60.0); Mean Corpuscular HGB Conc 33.2 g/dL (29.9-35.2); Mean Corpuscular Hemoglobin 28.3 pg (26.7-34.0); Mean Corpuscular Volume 85.4 fL (81.0-99.0); Mean Platelet Volume 13.4 fL (9.5-13.5); Monocytes Absolute Auto 0.4 10^3/uL (0.3-0.8); Monocytes Percent Auto 5.9 % (1.7-12.0); Neutrophils Absolute Auto 4.1 10^3/uL (1.4-6.5); Neutrophils Percent Auto 58.6 % (43.0-75.0); Platelet Count 243 10^3/uL (150-450); Red Blood Count 4.94 10^6/uL (4.20-5.40); White Blood Count 6.9 10^3/uL (4.0-11.0)
[2024-04-07 12:19] LABS: Alanine Aminotransferase 21 U/L (14-59); Albumin Globulin Ratio 0.9; Albumin Level 3.5 g/dL (3.4-5.0); Alkaline Phosphatase 77 U/L (46-116); Aspartate Amino Transferase 18 U/L (15-37); Bilirubin Direct 0.2 mg/dL (0.0-0.2); Bilirubin Total 0.7 mg/dL (0.2-1.0); Chol HDL Ratio 3.4; Cholesterol 165 mg/dL (<=200); Globulin 3.9 g/dL; HDL Cholesterol 49 mg/dL (40-60); Total Protein 7.4 g/dL (6.4-8.2); Triglycerides 157 mg/dL (<=150); VLDL CHOLESTEROL 31.4 mg/dL
[2024-04-08 11:09] LABS: PTH, Intact 26 pg/mL (15-65)
[2024-04-10 11:10] LABS: Vitamin B1 (Thiamine), Blood 120.3 nmol/L (66.5-200.0)
== END 2024-04-07 10:13 | disposition home or self-care (01) ==
LOC: LAB 10:14
PROVIDERS: PCP Family Medicine
DX: E87.6 Hypokalemia (principal); Z79.899 Other long term (current) drug therapy; I11.9 Hypertensive heart disease without heart failure; K91.2 Postsurgical malabsorption, not elsewhere classified; Z98.84 Bariatric surgery status
CPT/HCPCS: 36415; 80048; 80061; 80076; 82306; 82607; 82746; 83540; 83970; 84425; 85025

== ENCOUNTER 2024-04-13 10:15 | Outpatient (OUT) | payer OTHER, SELFPAY ==
[2024-04-13 11:48] LABS: Estimated Average Glucose 117 mg/dL; Glycohemoglobin A1C 5.7 % (4.5-6.2)
== END 2024-04-13 10:16 | disposition home or self-care (01) ==
LOC: LAB 10:17
PROVIDERS: PCP Family Medicine; Visit Provider Family Medicine
DX: R73.02 Impaired glucose tolerance (oral) (principal); I10 Essential (primary) hypertension
CPT/HCPCS: 36415; 80076; 83036

== ENCOUNTER 2024-08-21 10:46 | Outpatient (OUT) | payer OTHER, SELFPAY ==
--- OUTSIDE RECORDS SUMMARY | 2024-08-21 10:52 | XMS_ITS | CCD ---
Author Organization [facility] Team Providers Care Sales Review Clerk Name Role Phone Oberer, Awais Unavailable CHETAN, DR ULLOA Primary Care Unavailable LAWRENCE, DR LEEROY Ascecnio Admitting Unavailthomas BRAVO, DR LEEROY Ascencio Attending Unavailthomas BRAVO, DR LEEROY Ascencio Consulting Unavailabl e PARVIN PINTO Consulting Unavailable ROBBI CORREIA Consulting Unavailable Oberer, DO Awais Primary Care Provider [phone] Oberer, DO Awais Attending Provider [phone] Oberer, Awais L Unavailable Unavailable Unavailable MD Terese Braxton Attending Provider Oberer, DO Awais Primary Care Provider Oberer, DO Awais Attending Provider MD Terese Braxton Attending Provider Oberer, DO Awais Primary Care Provider [phone] Cathy Covarrubias Unavailable Oberer, DO Awais Primary Care Provider [phone] MD Terese Braxton Attending Provider Oberer, DO Awais Referring Provider MD Abena Henao Attending Provider [phone] Oberer, DO Awais Primary Care Provider MD Terese Braxton Attending Provider Oberer, DO Awais Attending Provider MD López Kidd Referring Provider Dr. Jose Luis Braxtona Attending Unavailable Oberer, Dr. Awais Jolley Primary Care Unavailable Fox, Dr. Gudino Referring Unavailable Fox, Dr. Gudino Attending Unavailable Oberer, Dr. Awais Jolley Primary Care Unavailable Fox, Dr. Gudino Attending Unavailable Oberer, Dr. Awais Jolley Primary Care Unavailable Fox, Dr. Gudino Attending Unavailable Oberer, Dr. Awais Jolley Primary Care Unavailable Holly Jaquez Unavailable Oberer, DO Awais Primary Care Provider MD Terese Braxton Attending Provider [phone] Terese Braxton Referring Unavailable Terese Braxton Attending Unavailable Oberer, Dr. Awais Jolley Primary Care Unavailable Terese Braxton Referring Unavailable Terese Braxton Attending Unavailable Oberer, Dr. Awais Jolley Primary Care Unavailable Treese Braxton Referring Unavailable Terese Braxton Attending Unavailable Oberer, Dr. Awais Jolley Primary Care Unavailable Terese Braxton Referring Unavailable Oberer, Dr. Awais Jolley Primary Care Unavailable Terese Braxton Attending Unavailable Oberer Awais VELÁSQUEZ Primary Care Provider Oberer Awais VELÁSQUEZ Primary Care Provider Oberer Awais VELÁSQUEZ Primary Care Provider Oberer, DO Awais Attending Provider Oberer, Awais Primary Care Unavailable Oberer, Awais Admitting Unavailable Oberer, Awais Attending Unavailable Terese Braxton Attending Unavailable BraxtonJose Luis villanuevaa Admitting Unavailable Oberer, Awais Primary Care Unavailable Juliano, Abena Attending Unavailable Juliano, Abena Admitting Unavailable Oberer, Awais Referring Unavailable Oberer, Awais Primary Care Unavailable Oberer, Awais Admitting Unavailable Oberer, Awais Attending Unavailable LEONIDES FULLER Attending Unavailable OBERER, AWAIS Referring Unavailable OBERER, AWAIS Primary Care Unavailable LEONIDES FULLER Attending Unavailable OBERER, AWAIS Referring Unavailable OBERER, AWAIS Primary Care Unavailable LÓPEZ KIDD Referring Unavailable OBERER, AWAIS Primary Care Unavailable OBERER, AWAIS Referring Unavailable OBERER, AWAIS Primary Care Unavailable BINDULÓPEZ Attending Unavailable BINDULÓPEZ Referring Unavailable OBERER, AWAIS Primary Care Unavailable LÓPEZ KIDD Admitting Unavailable MINERVALÓPEZ CRUZ Attending Unavailable OBERER, AWAIS Primary Care Unavailable JARROD ROMERO Attending Unavailable OBERER, AWAIS Primary Care Unavailable MELISSA MURO Attending Unavailable OBERER, AWAIS Referring Unavailable OBERER, AWAIS Primary Care Unavailable YOLI CHA Attending Unavailable OBERER, AWAIS Referring Unavailable OBERER, AWAIS Primary Care Unavailable JUANA BUSH Attending Unavailable OBERER, AWAIS Referring Unavailable OBERER, AWAIS Primary Care Unavailable TERESE BRAXTON Attending Unavailable BRAXTONTERESE VILLANUEVA Referring Unavailable OBERER, AWAIS L Primary Care Unavailable Allergies Allergy Classification Reported Allergen(s) Allergy Type Date of Onset Reaction(s) Facility (16 sources) Altretamine Drug Allergy 04-14-20 24 Unknown, Dizziness [facility] (14 sources) Bacitracin Drug Allergy yeast infection [facility] Other (20 sources) Cefuroxime; Translations: [Ceftin TABS] Drug Allergy 01-31-20 21 Unknown, diarrhea, Rash, Rash, diarrhea [facility] (16 sources) Ibuprofen Drug Allergy 04-14-20 24 insomnia [facility] (20 sources) pregabalin; Translations: [PREGABALIN] Drug Allergy 01-31-20 21 Abnormal Behavior [facility] (20 sources) Sertraline; Translations: [Zoloft] Drug Allergy 01-31-20 21 Confusion, Other (See Comments) [facility] (20 sources) traMADol; Translations: [Ultram] Drug Allergy 01-31-20 21 hives [facility] (16 sources) Beeswax Drug allergy 04-14-20 24 Unknown, [facility] (14 sources) Bees Propensity to adverse reactions swelling [facility] Other (9 sources) Sertraline Drug Allergy Unknown [facility] Other (14 sources) Aspirin; Translations: [ASPIRIN] Drug Allergy 08-12-20 15 unable to take because of clotting disorder [facility] (1 source) bee venom Drug allergy (disorder) 11-01-19 17 [facility] (1 source) Cefuroxime Drug Allergy 08-12-20 15 [facility] (3 sources) gabapentin; Translations: [GABAPENTIN] Drug Allergy 08-12-20 15 [facility] (1 source) pregabalin Drug Allergy 08-12-20 15 [facility] (1 source) Sertraline Drug Allergy 08-12-20 15 [facility] (1 source) traMADol Drug Allergy 08-12-20 15 [facility] (12 sources) Adhesive Tape; Translations: [adhesive tape] Allergy to substance 01-31-20 21 Redness of Skin [facility] (12 sources) venom-honey bee; Translations: [venom-honey bee] Allergy to substance 01-31-20 Swelling [facility] (12 sources) NSAIDS (Non-Steroidal Anti-Inflamma; Translations: [NSAIDS (Non-Steroidal Anti-Inflamma] Propensity to adverse reactions 01-31-20 21 unable to take because of clotting disorder [facility] (9 sources) apis mellifera venom Allergy to substance (finding) [facility] 250 DO Work Phone: (13 sources) Aspirin; Translations: [aspirin] Drug Allergy 07-31-20 Unknown, Other (See Comments) [facility] (14 sources) gabapentin; Translations: [gabapentin] Drug Allergy 02-08-20 23 Drowsiness, Other (See Comments) [facility] 250 DO Work Phone: (10 sources) natural latex rubber; Translations: [LATEX] Allergy to substance (finding) 07-31-20 23 [place] [address] Repository (9 sources) NSAIDs; Translations: [NSAIDs] Allergy to drug (finding) [facility] 250 DO Work Phone: (9 sources) Sulfamethoxazole / Trimethoprim; Translations: [Bactrim] Drug Allergy [facility] 250 DO Work Phone: (7 sources) Cefuroxime; Translations: [CEFUROXIME AXETIL] Drug Allergy 02-08-20 [facility] Work Phone: (2 sources) Latex Propensity to adverse reactions 07-31-20 [facility] Work Phone: (7 sources) Non-steroidal anti-inflammatory agent; Translations: [NSAIDS (NON-STEROIDAL ANTI-INFLAMMATORY DRUG)] Propensity to adverse reactions 07-31-20 Unknown, Other (See Comments) [facility] Work Phone: (6 sources) Bee Venom Protein (Honey Bee); Translations: [BEE VENOM PROTEIN (HONEY BEE)] Propensity to adverse reactions 07-31-20 [facility] Work Phone: (2 sources) FLUoxetine; Translations: [FLUOXETINE] Drug Allergy 02-08-20 Other (See Comments) [facility] (4 sources) Other; Translations: [OTHER] Propensity to adverse reactions 11-06-19 Other (See Comments) [facility] (3 sources) Adhesive Tape-Silicones; Translations: [ADHESIVE TAPE-SILICONES] Propensity to adverse reactions to drug 11-20-19 [facility] (2 sources) Antibiotic Allergy to substance 10-15-20 yeast infection [facility] (1 source) Aspirin Drug Allergy 11-19-19 [facility] (1 source) Cefuroxime Drug Allergy 11-19-19 [facility] (1 source) pregabalin Drug Allergy 11-19-19 [facility] (1 source) Sertraline Drug Allergy 11-19-19 [facility] (1 source) traMADol Drug Allergy 11-19-19 [facility] Medications Current Medications Medication Drug Class(es) Dates Sig (Normalized) Sig (Original) acetaminophen 500 mg oral tablet (20 sources) Start: 03-27-2023 take 500 mg by mouth every six hours Acetaminophen Active 500 MG PO Q6H March 27, 2023 12:00am take 2 tablets by mo uth in the morning, then take 2 tablets by mouth at bedtime acetaminophen (TYLENOL EXTRA STRENGTH) 500 mg tablet Take 2 tablets (1,000 mg total) by mouth in the morning and 2 tablets (1,000 mg total) before bedtime. 0 Active take 4 tablets by mo [facility] every twelve hours Acetaminophen 500 MG 4 tablets Orally BI D Active [id number] 200 actuat albuterol 0.09 mg/actuat metered dose [...] Start: 01-18-2023 take 2 puff(s) by mo [facility] every four hours as needed for wheezing [...] DAILY NEEDED 0 01/18/2023 Active Start: 01-23-2021 End: 04-14-2024 Diclofenac Sodium Discontinu ed 1 EACH TOPICAL Daily January 23, 2021 12:00am April 14, 2024 1:22pm Diclofenac Sodiu m 1 % GEL APPLY [...] infection occurs for 1 days Sep, Active fluticasone propionate 0.05 mg/actuat metered dose nasal spray (20 sources) Corticosteroid Start: 01-23-2021 End: 01-15-2024 Fluticasone Propionate Active 2 SPRAY INTRANASAL Daily at bedtime January 15, 2024 5:13pm Start: 01-23-2021 End: 04-14-2024 Fluticasone Propionate (Flov ent Diskus) 250 mcg/actuation blister with device Discontinued 2 INH INHALATION Daily at bedtime January 23, 2021 12:00am April 14, 2024 1:22pm Start: 01-03-2021 take 2 spray(s) nasa l route once daily Fluticasone Propionate 50 MCG/ACT 2 spray in each nostril Nasally Once a day for 30 days Dec, Active Start: 09-20-2020 take 1 puff(s) by in halation twice daily Flovent Diskus 250 MCG/BLIST 1 puff Inhalation Twice a day for 30 days Aug, Active take 1 puff(s) by mo uth twice daily fluticasone (Flovent Diskus) 100 mcg/actuation [...] PO Daily May 06, 2018 12:00am lisinopril 10 mg oral tablet (20 sources) Angiotensin Converting Enzyme Inhibitor Start: 11-19-2023 take 40 mg by mouth once daily Lisinopril Active 40 MG PO Daily November 19, 2023 2:37pm Start: 01-21-2023 End: 02-09-2025 take 1 tablet by mouth once daily lisinopril 40 mg tablet Indications: Hypertensive heart disease without CHF Take 1 tablet (40 mg) by mouth once daily. 90 tablet 3 02/10/2024 02/09/2025 Active Start: 01-21-2023 take 1 tablet by demetrio once daily Lisinopril 20 MG Oral Tablet TAKE 1 TABLET DAILY DIRECTED. Quantity: 90 Refills: 3 Ordered: 21-Jan-2023 Terese Braxton MD Start : 21-Jan-2023 Active dose change Start: 05-06-2018 End: 11-19-2023 take 20 mg by mouth once daily Lisinopril Discontinued 20 MG PO Daily May 06, 2018 12:00am November 19, 2023 2:38pm Start: 05-06-2018 take 10 mg by mouth [...] Start: 07-15-2023 take 1 tablet by demetrio th twice daily Magnesium Oxide 400 MG Oral [...] as directed for 6 days Jan, Active omeprazole 40 mg delayed release oral capsule (20 sources) Proton Pump Inhibitor Start: 04-14-2024 take 1 capsule by mouth twice daily 30 minutes before mealtime as needed, then take 1 capsule by mouth at breakfast as needed Omeprazole Active 40 MG PO Twice daily April 14, 2024 12:00am FreeTextSig: TAKE 1 CAPSULE BY MOUTH TWICE DAILY 30 MINUTES BEFORE MEALS NEEDED WITH one dose being before morning meal; Note: Source Status: Taking; Refills: 2; Qty: 60 Capsule; Provider: Johanna Robin ( ) Start: 11-21-2023 take 1 capsule by mo uth once daily before breakfast omeprazole (PriLOSEC) 40 [...] morning meal 0 01/26/2023 Active Start: 05-06-2018 End: 04-14-2024 take 40 mg by mouth once daily at bedtime Omeprazole Discontinued 40 MG PO Daily at bedtime May 06, 2018 12:00am April 14, 2024 1:24pm ondansetron 4 mg oral tablet (3 sources) Serotonin-3 Receptor Antagonist Start: 11-21-2023 End: 11-26-2023 take 1 tablet by mouth every six hours as needed for nausea ondansetron (ZOFRAN) 4 mg tablet Indications: Post-operative nausea and vomiting Take 1 tablet (4 mg total) by mouth every 6 (six) hours as needed for nausea or vomiting (post op nausea). 30 tablet 1 11/26/2023 Active PNV,calcium 51-yxuk-znyho acid ( VITAMIN PLUS LOW IRON) 27 mg iron- 1 mg tablet (1 source) Start: 12-16-2023 take 1 tablet by mouth in the morning PNV,calcium 67-bfyb-ispro acid ( VITAMIN PLUS LOW IRON) 27 mg iron- 1 mg tablet Indications: Postsurgical malabsorption , Malnutrition following gastrointestinal surgery , History of Da-en-Y gastric bypass Take 1 tablet by mouth in the morning. 90 tablet 3 12/16/2023 Active Atr884-Ziibobn Fumarate-Fa () 28-800 mg-mcg Tablet (6 sources) Start: 03-28-2023 Pob452-Mrbluyp Fumarate-Fa () 28-800 mg-mcg Tablet Active TAB PO March 28, 2023 12:00am KAZ150-gikocmt fumarate-FA () 28-800 mg-mcg tablet (1 source) Start: 03-28-2023 KDZ132-wzyzfdf fumarate-FA () 28-800 mg-mcg tablet 03/28/2023 Active [...] tablet (20 sources) HMG-CoA Reductase Inhibitor Start: 11-19-2023 take 20 mg by mouth once daily Rosuvastatin Active 20 MG PO Daily November 19, 2023 2:38pm Start: 10-14-2023 take 1 tablet by demetrio th every twenty-four hours Rosuvastatin Calcium 10 MG 1 tablet Orally Once a day for 30 days Sep, Active Start: 03-27-2023 End: 11-19-2023 take 40 mg by mouth once daily Rosuvastatin Discontinu ed 40 MG PO Daily March 27, 2023 12:00am November 19, 2023 2:38pm Start: 01-18-2023 End: 02-09-2025 take 0.5 tablet by mouth once daily rosuvastatin (Crestor) 40 mg tablet Indications: Hyperlipemia, mixed Take 0.5 tablets (20 mg) by mouth once daily. 45 tablet 3 02/10/2024 02/09/2025 Active Start: 11-23-2022 take 1 tablet by mouth at bedt wilmer Rosuvastatin Calcium 40 MG Oral Tablet TAKE [...] / oxyCODONE hydrochloride 5 mg oral tablet (12 sources) Opioid Agonist Start: 11-21-2023 End: 11-26-2023 [...] tablet Discontinued 2 TAB PO Q6H 30 January 30, 2021 March 27, 2023 4:12pm [...] DULoxetine 60 mg delayed release oral capsule (11 sources) Serotonin and Norepinephrine Reuptake Inhibitor Start: [...] by mouth. Use as directed 0 Active montelukast 10 mg oral tablet (20 sources) Leukotriene Receptor Antagonist Start: 02-08-2020 End: 04-14-2024 take 10 mg by mouth once daily at bedtime Montelukast Discontinued 10 MG PO Daily at bedtime January 23, 2021 12:00am April 14, 2024 1:23pm OXcarbazepine 300 mg oral tablet (11 sources) Anti-epileptic Agent Start: 05-06-2018 End: 01-23-2021 take 300 mg by mouth once daily Oxcarbazepine Discontinued 300 MG PO Daily May 06, 2018 12:00am January 23, 2021 10:59am pregabalin 75 mg oral capsule (11 sources) Start: 05-06-2018 End: 01-23-2021 take 1 capsule by mouth once daily Pregabalin (Lyrica) 75 mg capsule Discontinued 75 MG PO Daily May 06, 2018 12:00am January 23, 2021 10:56am tiZANidine 4 mg oral tablet (11 sources) Central alpha-2 Adrenergic Agonist Start: 05-06-2018 End: 01-23-2021 take 4 mg by mouth once daily Tizanidine Discontinued 4 MG PO Daily May 06, 2018 12:00am January 23, 2021 10:57am Triamcinolone (14 sources) Corticosteroid Start: 10-19-2020 Kenalog -40 mg Sep, 40 mg Problems Active Problems Problem Classification Problem Date Documented Da te Episodic/Chronic Abdominal pain (4 sources) Unspecified abdominal pain; Translations: [Epigastric pain] Onset: 4 Episodic Asthma (20 sources) Acute severe exacerbation of asthma; Translations: [Asthma, unspecified with status asthmaticus] Onset: 9 Resolved: 2 Chronic Biliary tract disease (6 sources) Calculus of gallbladder with cholecystitis; Translations: [Calculus of gallbladder with chronic cholecystitis without obstruction] Episodic Cardiac dysrhythmias (3 sources) Multiple premature ventricular complexes; Translations: [Ventricular [...] postprocedural ovarian failure] Onset: 4 11-26-2023 Chronic Conditions associated with dizziness or vertigo (2 sources) Benign paroxysmal positional vertigo; Translations: [Benign paroxysmal vertigo, unspecified ear] 04-14-2024 Episodic Diabetes mellitus without complication (20 sources) Impaired glucose tolerance; Translations: [Impaired glucose tolerance (oral)] Onset: 2 Resolved: 2 Episodic Diseases of mouth; excluding dental (1 source) [...] (primary) hypertension] Onset: 2 Resolved: 2 Chronic Genitourinary symptoms and ill-defined conditions (7 sources) Increased frequency of urination; Translations: [Frequency of micturition] Onset: 4 Episodic Hypertension with complications and secondary hypertension (12 sources) Hypertensive heart disease without congestive heart failure; Translations: [Unspecified hypertensive heart disease without heart failure] Onset: 3 08-01-2023 Chronic Joint disorders and dislocations; trauma-related (13 sources) Tear of lateral meniscus of knee; Translations: [Other tear of lateral meniscus, current injury, left knee, initial encounter] Onset: 2 Resolved: 2 Episodic Nutritional deficiencies (4 sources) Vitamin D deficiency; Translations: [Vitamin D deficiency, unspecified] Onset: 4 11-22-2023 Chronic Osteoarthritis (20 sources) Osteoarthritis of left knee joint; Translations: [Unilateral primary osteoarthritis, left knee] Onset: 2 Resolved: 2 Chronic Other acquired deformities (14 sources) Acquired spondylolisthesis; Translations: [Spondylolysis, lumbar region] Episodic Other acquired deformities (1 source) Spondylolysis, lumbar region Episodic Other acquired deformities (2 sources) Spondylolysis; Translations: [Spondylolysis, lumbar region] 01-15-2024 Episodic Other aftercare (14 sources) Long-term current use of drug therapy; Translations: [Other retirement (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 therapy] Episodic Other aftercare (8 sources) Treatment changed; Translations: [Long-term (current) use of other medications] Onset: 4 02-10-2024 Episodic Other aftercare (2 sources) Patient encounter status; Translations: [Other retirement (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 therapy] 01-15-2024 Episodic Other and ill-defined heart disease (10 sources) Diastolic dysfunction; Translations: [Other ill-defined heart diseases] 01-15-2024 Chronic Other and ill-defined heart disease (1 source) Other ill-defined heart diseases Chronic Other connective tissue disease (16 sources) Fibromyalgia; Translations: [Fibromyalgia] 01-15-2024 Episodic Other connective tissue disease (4 sources) Fibromyalgia; Translations: [Myalgia and myositis, unspecified] Onset: 2 Resolved: 2 Episodic Other diseases of veins and lymphatics (4 sources) Peripheral venous insufficiency; Translations: [Venous insufficiency (chronic) (peripheral)] 01-15-2024 Episodic Other diseases of veins and lymphatics (2 sources) Venous insufficiency (chronic) (peripheral); Translations: [Venous (peripheral) insufficiency, unspecified] Episodic Other ear and sense organ disorders (6 sources) Bilateral tinnitus; Translations: [Tinnitus, bilateral] Episodic Other gastrointestinal disorders (2 sources) History of bypass of stomach; Translations: [Bariatric surgery status] Onset: 4 02-10-2024 Episodic Other hereditary and degenerative nervous system conditions (16 sources) Essential tremor; Translations: [Essential tremor] 01-15-2024 Chronic Other hereditary and degenerative nervous system conditions (1 source) Essential tremor Chronic Other infections; including parasitic (1 source) Personal history of other infectious and parasitic diseases Episodic Other lower respiratory disease (1 source) Other forms of dyspnea Episodic Other lower respiratory disease (3 sources) Shortness of breath; Translations: [Shortness of breath] Onset: 3 Episodic Other nervous system disorders (6 sources) [...] Chronic Other nutritional; endocrine; and metabolic disorders (8 sources) Morbid (severe) obesity due to excess calories; Translations: [Morbid obesity] Onset: 2 Resolved: 2 Chronic Other nutritional; endocrine; and metabolic disorders (20 sources) Body mass index 40+ - severely obese; Translations: [Morbid obesity] Onset: 3 03-28-2023 Chronic Other nutritional; endocrine; and metabolic disorders (6 sources) Obesity; Translations: [Obesity, unspecified] Chronic Other nutritional; endocrine; and metabolic disorders (2 sources) Body mass index (BMI) 50.0-59.9, adult; Translations: [Body mass index (BMI) 50.0-59.9, adult] Onset: 4 Chronic Other nutritional; endocrine; and metabolic disorders (2 sources) Body mass index (BMI) 45.0-49.9, adult; Translations: [Body mass index (BMI) 45.0-49.9, adult (Multi)] Onset: 4 Chronic Other nutritional; endocrine; and metabolic disorders (1 source) Abnormal weight gain Episodic Other skin disorders (11 sources) Cyst of scalp; Translations: [Follicular cyst of the skin and subcutaneous tissue, unspecified] 01-30-2021 Episodic Other skin disorders (1 source) Sebaceous cyst; Translations: [Sebaceous cyst] 04-14-2024 Episodic Other skin disorders (1 source) Nonscarring hair loss, unspecified; Translations: [Alopecia, unspecified] 04-14-2024 Episodic Other upper respiratory disease (12 sources) [...] codes; unclassified (1 source) Insomnia, unspecified Episodic Spondylosis; intervertebral disc disorders; other back problems (18 sources) Chronic back pain ; Translations: [Dorsalgia, [...] (1 source) MORBID OBESITY, HYPERTENSION Onset: 4 Urinary tract infections (1 source) Cystitis, unspecified with hematuria; Translations: [Cystitis, unspecified] 04-14-2024 Episodic Past or Other Problems Problem Classification Problem Date Documented Da te Episodic/Chronic Administrative/social admission (17 sources) Follow-up status; Translations: [Other specified counseling] Onset: 08-01-2023 03-28-2023 Episodic Cardiac dysrhythmias (5 sources) Palpitations; Translations: [Palpitations] Onset: 07-31-2023 07-31-2023 Episodic Fluid and electrolyte disorders (4 sources) Hypokalemia; Translations: [Hypokalemia] Onset: 02-10-2024 02-10-2024 Episodic Malaise and fatigue (16 sources) Fatigue; Translations: [Other malaise and fatigue] Onset: 02-13-2023 Episodic Mood disorders (2 sources) Mood disorders Onset: 11-20-2023 11-20-2023 Nausea and vomiting (4 sources) Postoperative nausea and vomiting; Translations: [Nausea with vomiting, unspecified] Onset: 11-26-2023 11-26-2023 Episodic Other aftercare (8 sources) Other termite exterminator helper (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 therapy; Translations: [Long-term (current) use of other medications] Onset: 01-18-2022 Resolved: 01-18-2022 Episodic Other gastrointestinal disorders (3 sources) Bariatric surgery status; Translations: [Bariatric surgery status] Onset: 11-26-2023 Episodic Other lower respiratory disease (13 sources) Dyspnea; Translations: [Shortness of breath] Onset: 02-13-2023 Episodic Other nervous system disorders (1 source) [...] [Sleep disturbance, unspecified] Onset: 07-31-2023 07-31-2023 Episodic Residual codes; unclassified (1 source) Other specified postprocedural states; Translations: [Other specified postprocedural states] Onset: 11-26-2023 Episodic Unclassified (1 source) Lumbosacral pain M54.50 Onset: 01-18-2022 Resolved: 01-18-2022 Unclassified (1 source) COUGH, UNSPECIFIED; Translations: [COUGH, UNSPECIFIED] Onset: 09-24-2022 Unclassified (9 sources) Patient status finding; Translations: [Patient new to provider] Unclassified (2 sources) Onset: 08-01-2023 08-01-2023 Results Test Name Value Interpretation Reference Range Facility Urine Cultureon 04-14-2024 Bacteria identified Cx Nom (U) 20,000 colonies/ml mixed bacterial skin contaminants 2 Days PERFORMED BY: [place] [address] PATHOLOGIST INSPECTOR PENETRANT SILVINA MONTESINOS M.D. Normal [facility] Comment on above: Performed By: #### C UU #### [address] Glucose mean value [Mass/vol ume] in Blood Estimated from glycated hemoglobinon 04-13-2024 Average glucose Estimated from glycated hemoglobin (Bld) [Mass/Vol] 117 mg/dL [facility] [facility] - Hematology and Cell countson 04-13-2024 HbA1c (Bld) [Mass fraction] 5.7 % 4.5-6.2 [facility] Comment on above: ADA RECOMMENDED LIMI T 4.0 - 6.0ADA THERAPEUTIC TARGET < 7.0ACTION SUGGESTED> 7.0 Basophils Auto (Bld) [#/Vol] on 04-07-2024 Basophils (Bld) [#/Vol] 0.0 10 3/uL 0.0-0.1 [facility] Basophils/100 WBC Auto (Bld) on 04-07-2024 Basophils/100 WBC (Bld) 0.4 % 0.2-2.0 [facility] Blood thiamine measurement ( moles/volume)on 04-07-2024 Thiamine (Bld) [Moles/Vol] 120.3 nmol/L 66.5-200.0 [facility] Comment on above: This test was develo ped and its performance characteristicsdetermined by [employer]. It has not been cleared orapproved by the Food and Drug Administration.Performed at: [address] [id number] Director: Argenis Reynolds MD, Phone: [phone] Cholesterol in LDL Calc [Mas s/Vol]on 04-07-2024 Cholesterol in LDL [Mass/Vol] 85.0 mg/dL [facility] Comment on above: <100 mg/dl [id number] 0-129 mg/dl NEAR OR ABOVE [id number] mg/dl BORDERLINE [id number] mg/dl HIGH>190 mg/dl VERY HIGH Cholesterol in VLDL Calc [Ma ss/Vol]on 04-07-2024 Cholesterol in VLDL [Mass/Vol] 31.4 mg/dL [facility] Eosinophils/100 WBC Auto (Bl d)on 04-07-2024 Eosinophils/100 WBC (Bld) 1.4 % 0.9-7.0 [facility] Erythrocyte distribution wid th Auto (RBC) [Ratio]on 04-07-2024 Erythrocyte distribution width (RBC) [Ratio] 14.0 % 11.0-15.0 [facility] Estimated glomerular filtrat ion rate (GFR) non- Americanon 04-07-2024 GFR/1.73 sq M.predicted among non-blacks MDRD (S/P/Bld) [Vol rate/Area] mL/min/{1.73_m2} >=60 [facility] Globulin Calc (S) [Mass/Vol] on 04-07-2024 Globulin (S) [Mass/Vol] 3.9 g/dL [facility] Hematocrit Auto (Bld) [Volum e fraction]on 04-07-2024 Hematocrit (Bld) [Volume fraction] 42.2 % 36.0-48.0 [facility] Hemoglobin [Mass/volume] in Bloodon 04-07-2024 Hemoglobin (Bld) [Mass/Vol] 14.0 g/dL 12.0-16.0 [facility] Laboratory - Chemistry and C hemistry - challengeon 04-07-2024 Albumin [Mass/Vol] 3.5 g/dL 3.4-5.0 [facility] ALP [Catalytic activity/Vol] 77 U/L 46-116 [facility] ALT [Catalytic activity/Vol] 21 U/L 14-59 [facility] AST [Catalytic activity/Vol] 18 U/L 15-37 [facility] Bilirubin [Mass/Vol] 0.7 mg/dL 0.2-1.0 [facility] Bilirubin.direct [Mass/Vol] 0.2 mg/dL 0.0-0.2 [facility] Calcium [Mass/Vol] 9.6 mg/dL 8.5-10.1 [facility] Chloride [Moles/Vol] 105 mmol/L 98-107 [facility] Cholesterol [Mass/Vol] 165 mg/dL <=200 [facility] Cholesterol in HDL [Mass/Vol] 49 mg/dL 40-60 [facility] Comment on above: > or =60 mg/dl - LOW CARDIOVASCULAR RISK<40 mg/dl - HIGH CARDIOVASCULAR RISK CO2 [Moles/Vol] 24.3 mmol/L 21.0-32.0 [facility] Cobalamin (Vitamin B12) [Mass/Vol] 1114.0 pg/mL 193.0-986. 0 [facility] Creatinine [Mass/Vol] 0.85 mg/dL 0.55-1.02 [facility] GFR/1.73 sq M.predicted MDRD (S/P/Bld) [Vol rate/Area] mL/min/{1.73_m2} >=60 [facility] Glucose [Mass/Vol] 111 mg/dL 74-106 [facility] Iron [Mass/Vol] 70.0 ug/dL 50.0-170.0 [facility] Potassium [Moles/Vol] 3.6 mmol/L 3.5-5.1 [facility] Protein [Mass/Vol] 7.4 g/dL 6.4-8.2 [facility] Sodium [Moles/Vol] 139 mmol/L 136-145 [facility] Triglyceride [Mass/Vol] 157 mg/dL <=150 [facility] Urea nitrogen [Mass/Vol] 18.0 mg/dL 7.0-18.0 [facility] Urea nitrogen/Creatinine [Mass ratio] 21.2 mg/mg [facility] Laboratory - Hematology and Cell countson 04-07-2024 Immature granulocytes/100 WBC (Bld) 0.3 % 0.0-0.5 [facility] Leukocytes [#/volume] correc margarita for nucleated erythrocytes in Blood by Automated counon 04-07-2024 WBC corrected for nucl RBC Auto (Bld) [#/Vol] 6.9 10 3/uL 4.0-11.0 [facility] Lymphocytes Auto (Bld) [#/Vo l]on 04-07-2024 Lymphocytes (Bld) [#/Vol] 2.3 10 3/uL 1.2-3.8 [facility] Lymphocytes/100 WBC Auto (Bl d)on 04-07-2024 Lymphocytes/100 WBC (Bld) 33.4 % 20.5-60.0 [facility] MCH Auto (RBC) [Entitic mass ]on 04-07-2024 MCH (RBC) [Entitic mass] 28.3 pg 26.7-34.0 [facility] MCHC Auto (RBC) [Mass/Vol]on 04-07-2024 MCHC (RBC) [Mass/Vol] 33.2 g/dL 29.9-35.2 [facility] MCV Auto (RBC) [Entitic vol] on 04-07-2024 MCV (RBC) [Entitic vol] 85.4 fL 81.0-99.0 [facility] Monocytes Auto (Bld) [#/Vol] on 04-07-2024 Monocytes (Bld) [#/Vol] 0.4 10 3/uL 0.3-0.8 [facility] Monocytes/100 WBC Auto (Bld) on 04-07-2024 Monocytes/100 WBC (Bld) 5.9 % 1.7-12.0 [facility] Neutrophils Auto (Bld) [#/Vo l]on 04-07-2024 Neutrophils (Bld) [#/Vol] 4.1 10 3/uL 1.4-6.5 [facility] Neutrophils/100 WBC Auto (Bl d)on 04-07-2024 Neutrophils/100 WBC (Bld) 58.6 % 43.0-75.0 [facility] No Panel Informationon 04-07 25-Hydroxy Vitamin D Total 44.4 ng/mL [facility] Comment on above: <20 ng/mL Vit D defi cient20-<30 ng/mL Vit D pzuieezzhgax97-823 ng/mL Vit D sufficient>100 ng/mL Potential Toxicity Eosinophils # (Auto) 0.1 10 3/uL 0.0-0.7 [facility] Folate 23.60 ng/mL 8.60-58.90 [facility] Immature Granulocyte # (Auto) 0.02 10 3/uL 0.00-0.03 [facility] Parathyroid Hormone (Intact) 26 pg/mL 15-65 [facility] Comment on above: Performed at: [address] [id number] Director: Gonzalo Ott PhD, Phone: [phone] Platelet mean volume Auto (B ld) [Entitic vol]on 04-07-2024 Platelet mean volume (Bld) [Entitic vol] 13.4 fL 9.5-13.5 [facility] Platelets Auto (Bld) [#/Vol] on 04-07-2024 Platelets (Bld) [#/Vol] 243 10 3/uL 150-450 [facility] RBC Auto (Bld) [#/Vol]on RBC (Bld) [#/Vol] 4.94 10 6/uL 4.20-5.40 [facility] Serum or plasma albumin/glob ulin mass ratioon 04-07-2024 Albumin/Globulin [Mass ratio] 0.9 {ratio} [facility] Serum or plasma anion gap de terminationon 04-07-2024 Anion gap [Moles/Vol] 13.3 mmol/L [facility] Serum or plasma total choles terol/high density lipoprotein (HDL) cholesterol mass chico 04-07-2024 Cholesterol.total/Chol esterol in HDL [Mass ratio] 3.4 {ratio} [facility] Comment on above: 3.3 - 4.4 LOW RISK4. 4 - 7.1 AVERAGE RISK7.1 - 11.0 MODERATE RISK>11.0 HIGH RISK Automated epithelial cells c ount in urine sediment (number/area)on 03-03-2024 Epithelial cells Auto (Urine sed) [#/Area] RARE #/LPF NONE/RARE [facility] Bacteria [Presence] in Urine by Automatedon 03-03-2024 Bacteria Auto Ql (U) SMALL #/HPF NONE SEEN [facility] Bilirubin Auto test strip (U ) [Mass/Vol]on 03-03-2024 Bilirubin (U) [Mass/Vol] COLOR INTERFERENCE NEGATIVE [facility] Casts typing in urine sedime nt by light microscopyon 03-03-2024 Casts LM Nom (Urine sed) NONE SEEN #/LPF NONE SEEN [facility] Laboratory - Chemistry and C hemistry - challengeon 03-03-2024 Ketones Ql (U) COLOR INTERFERENCE mg/dL NEGATIVE [facility] Specific gravity (U) [Rel density] 1.020 1.005-1.02 5 [facility] Laboratory - Microbiology an d Antimicrobial susceptibilityOrdered By: Aleida Garcia on 03-03-2024 Bacteria identified Cx Nom (U) [facility] Laboratory - Specimen inform ationon 03-03-2024 Appearance (U) CLOUDY CLEAR [facility] Color (U) DK. BROWN YELLOW [facility] Laboratory - Urinalysison Leukocyte esterase Test strip Ql (U) COLOR INTERFERENCE NEGATIVE [facility] Nitrite Ql (U) COLOR INTERFERENCE NEGATIVE [facility] Protein Ql (U) COLOR INTERFERENCE mg/dL NEG/TRACE [facility] Leukocytes [#/area] in Urine sediment by Automated counton 03-03-2024 WBC Auto (Urine sed) [#/Area] >100 #/HPF 0-2 [facility] Leukocytes [#/area] in Urine sediment by Microscopy high power fieldon 03-03-2024 WBC LM.HPF (Urine sed) [#/Area] 5-10 #/HPF NONE SEEN [facility] Mucus LM Ql (Urine sed)on Mucus Ql (Urine sed) NONE SEEN NONE SEEN [facility] No Panel Informationon 03-03 Urine Culture Reflexed YES [facility] Urine Glucose (UA) COLOR INTERFERENCE mg/dL NEGATIVE [facility] Urine Microscopic Review YES [facility] Urine pH COLOR INTERFERENCE 5.0-9.0 [facility] Urine Urobilinogen COLOR INTERFERENCE EU/dL 0.2-1.0 [facility] Urine hemoglobin detection b y automated test stripon 03-03-2024 Hemoglobin Auto test strip Ql (U) COLOR INTERFERENCE NEGATIVE [facility] Urine sediment crystal ident ification by light microscopyon 03-03-2024 Crystals LM Nom (Urine sed) None Seen #/HPF None Seen [facility] Basophils Auto (Bld) [#/Vol] on 02-05-2024 Basophils (Bld) [#/Vol] 0.0 10 3/uL 0.0-0.1 [facility] Basophils/100 WBC Auto (Bld) on 02-05-2024 Basophils/100 WBC (Bld) 0.5 % 0.2-2.0 [facility] Blood thiamine measurement ( moles/volume)on 02-05-2024 Thiamine (Bld) [Moles/Vol] 126.0 nmol/L 66.5-200.0 [facility] Comment on above: This test was develo ped and its performance characteristicsdetermined by [employer]. It has not been cleared orapproved by the Food and Drug Administration.Performed at: - [facility] [id number] Director: Argenis Reynolds MD, Phone: [phone] Cholesterol in LDL Calc [Mas s/Vol]on 02-05-2024 Cholesterol in LDL [Mass/Vol] 64.0 mg/dL [facility] Comment on above: <100 mg/dl [id number] 0-129 mg/dl NEAR OR ABOVE CQKHFLY963-780 mg/dl BORDERLINE TOKM862-069 mg/dl HIGH>190 mg/dl VERY HIGH Cholesterol in VLDL Calc [Ma ss/Vol]on 02-05-2024 Cholesterol in VLDL [Mass/Vol] 38.6 mg/dL [facility] Eosinophils/100 WBC Auto (Bl d)on 02-05-2024 Eosinophils/100 WBC (Bld) 1.7 % 0.9-7.0 [facility] Erythrocyte distribution wid th Auto (RBC) [Ratio]on 02-05-2024 Erythrocyte distribution width (RBC) [Ratio] 13.6 % 11.0-15.0 [facility] Estimated glomerular filtrat ion rate (GFR) non- Americanon 02-05-2024 GFR/1.73 sq M.predicted among non-blacks MDRD (S/P/Bld) [Vol rate/Area] mL/min/{1.73_m2} >=60 [facility] Globulin Calc (S) [Mass/Vol] on 02-05-2024 Globulin (S) [Mass/Vol] 3.4 g/dL [facility] Glucose mean value [Mass/vol ume] in Blood Estimated from glycated hemoglobinon 02-05-2024 Average glucose Estimated from glycated hemoglobin (Bld) [Mass/Vol] 120 mg/dL [facility] Hematocrit Auto (Bld) [Volum e fraction]on 02-05-2024 Hematocrit (Bld) [Volume fraction] 41.0 % 36.0-48.0 [facility] Hemoglobin [Mass/volume] in Bloodon 02-05-2024 Hemoglobin (Bld) [Mass/Vol] 13.1 g/dL 12.0-16.0 [facility] Laboratory - Chemistry and C hemistry - challengeon 02-05-2024 Albumin [Mass/Vol] 3.2 g/dL 3.4-5.0 [facility] ALP [Catalytic activity/Vol] 67 U/L 46-116 [facility] ALT [Catalytic activity/Vol] 18 U/L 14-59 [facility] AST [Catalytic activity/Vol] 11 U/L 15-37 [facility] Bilirubin [Mass/Vol] 0.6 mg/dL 0.2-1.0 [facility] Bilirubin.direct [Mass/Vol] 0.2 mg/dL 0.0-0.2 [facility] Calcium [Mass/Vol] 9.3 mg/dL 8.5-10.1 [facility] Chloride [Moles/Vol] 107 mmol/L 98-107 [facility] Cholesterol [Mass/Vol] 146 mg/dL <=200 [facility] Cholesterol in HDL [Mass/Vol] 44 mg/dL 40-60 [facility] Comment on above: > or =60 mg/dl - LOW CARDIOVASCULAR RISK<40 mg/dl - HIGH CARDIOVASCULAR RISK CO2 [Moles/Vol] 28.3 mmol/L 21.0-32.0 [facility] Cobalamin (Vitamin B12) [Mass/Vol] 668.0 pg/mL 193.0-986. 0 [facility] Creatinine [Mass/Vol] 0.77 mg/dL 0.55-1.02 [facility] GFR/1.73 sq M.predicted MDRD (S/P/Bld) [Vol rate/Area] mL/min/{1.73_m2} >=60 [facility] Glucose [Mass/Vol] 113 mg/dL 74-106 [facility] Iron [Mass/Vol] 68.0 ug/dL 50.0-170.0 [facility] Potassium [Moles/Vol] 3.1 mmol/L 3.5-5.1 [facility] Protein [Mass/Vol] 6.6 g/dL 6.4-8.2 [facility] Sodium [Moles/Vol] 144 mmol/L 136-145 [facility] Triglyceride [Mass/Vol] 193 mg/dL <=150 [facility] Urea nitrogen [Mass/Vol] 20.0 mg/dL 7.0-18.0 [facility] Urea nitrogen/Creatinine [Mass ratio] 26.0 mg/mg [facility] Laboratory - Hematology and Cell countson 02-05-2024 HbA1c (Bld) [Mass fraction] 5.8 % 4.5-6.2 [facility] Comment on above: ADA RECOMMENDED LIMI T 4.0 - 6.0ADA THERAPEUTIC TARGET < 7.0ACTION SUGGESTED> 7.0 Immature granulocytes/100 WBC (Bld) 0.3 % 0.0-0.5 [facility] Leukocytes [#/volume] correc margarita for nucleated erythrocytes in Blood by Automated counon 02-05-2024 WBC corrected for nucl RBC Auto (Bld) [#/Vol] 6.1 10 3/uL 4.0-11.0 [facility] Lymphocytes Auto (Bld) [#/Vo l]on 02-05-2024 Lymphocytes (Bld) [#/Vol] 1.9 10 3/uL 1.2-3.8 [facility] Lymphocytes/100 WBC Auto (Bl d)on 02-05-2024 Lymphocytes/100 WBC (Bld) 31.7 % 20.5-60.0 [facility] MCH Auto (RBC) [Entitic mass ]on 02-05-2024 MCH (RBC) [Entitic mass] 28.2 pg 26.7-34.0 [facility] MCHC Auto (RBC) [Mass/Vol]on 02-05-2024 MCHC (RBC) [Mass/Vol] 32.0 g/dL 29.9-35.2 [facility] MCV Auto (RBC) [Entitic vol] on 02-05-2024 MCV (RBC) [Entitic vol] 88.2 fL 81.0-99.0 [facility] Monocytes Auto (Bld) [#/Vol] on 02-05-2024 Monocytes (Bld) [#/Vol] 0.3 10 3/uL 0.3-0.8 [facility] Monocytes/100 WBC Auto (Bld) on 02-05-2024 Monocytes/100 WBC (Bld) 5.0 % 1.7-12.0 [facility] Neutrophils Auto (Bld) [#/Vo l]on 02-05-2024 Neutrophils (Bld) [#/Vol] 3.7 10 3/uL 1.4-6.5 [facility] Neutrophils/100 WBC Auto (Bl d)on 02-05-2024 Neutrophils/100 WBC (Bld) 60.8 % 43.0-75.0 [facility] No Panel Informationon 02-04 25-Hydroxy Vitamin D Total 45.5 ng/mL [facility] Comment on above: <20 ng/mL Vit D defi cient20-<30 ng/mL Vit D kyocifcqxuuh22-515 ng/mL Vit D sufficient>100 ng/mL Potential Toxicity Eosinophils # (Auto) 0.1 10 3/uL 0.0-0.7 [facility] Folate 22.50 ng/mL 8.60-58.90 [facility] Immature Granulocyte # (Auto) 0.02 10 3/uL 0.00-0.03 [facility] Platelet mean volume Auto (B ld) [Entitic vol]on 02-05-2024 Platelet mean volume (Bld) [Entitic vol] 12.9 fL 9.5-13.5 [facility] Platelets Auto (Bld) [#/Vol] on 02-05-2024 Platelets (Bld) [#/Vol] 231 10 3/uL 150-450 [facility] RBC Auto (Bld) [#/Vol]on RBC (Bld) [#/Vol] 4.65 10 6/uL 4.20-5.40 [facility] Serum or plasma albumin/glob ulin mass ratioon 02-05-2024 Albumin/Globulin [Mass ratio] 0.9 {ratio} [facility] Serum or plasma anion gap de terminationon 02-05-2024 Anion gap [Moles/Vol] 11.8 mmol/L [facility] Serum or plasma total choles terol/high density lipoprotein (HDL) cholesterol mass chico 02-05-2024 Cholesterol.total/Chol esterol in HDL [Mass ratio] 3.3 {ratio} [facility] Comment on above: 3.3 - 4.4 LOW RISK4. 4 - 7.1 AVERAGE RISK7.1 - 11.0 MODERATE RISK>11.0 HIGH RISK CREATININEon 11-21-2023 Creatinine [Mass/Vol] 0.83 mg/dL Normal 0.40-1.00 [facility] Comment on above: Result Comment: METH OD TRACEABLE TO IDMS STANDARD Performed By: #### C BCA, CMP, FEPR, PINR, [id number], 2276-4, 2284-8, 9, 38466-3 #### [facility] ([id number]) [address] [place] [address] GFR/1.73 sq M.predicted among non-blacks MDRD (S/P/Bld) [Vol rate/Area] 83 mL/min/{1.73_m2} Normal >59 [facility] Comment on above: Result Comment: Reported eGFR is based on the CKD-EPI 2020 equation that does not use a race coefficient. Performed By: #### C BCA, CMP, FEPR, PINR, [id number], 2276-4, 2284-8, 213-9, 68440-0 #### [facility] ([id number]) [address] [place] [address] HGB AND HCTon 11-21-2023 Hematocrit (Bld) [Volume fraction] 38.1 % Normal 35-47 [facility] Comment on above: Performed By: #### C BCA, CMP, FEPR, PINR, 97184-0, 2276-4, 2284-8, 2132-9, 13128-5 #### [facility] ([id number]) [address] [facility] [address] [place] [address] Hemoglobin (Bld) [Mass/Vol] 12.8 g/dL Normal 11.7-15.5 [facility] Comment on above: Performed By: #### C BCA, CMP, FEPR, PINR, [id number], 2276-4, 2284-8, 2132-9, 19289-5 #### [facility] ([id number]) [address], [facility] [address] [place] [address] PLATELET COUNT AND MPVon Platelet mean volume (Bld) [Entitic vol] 10.8 fL Normal 7-12 [facility] Comment on above: Performed By: #### C BCA, CMP, FEPR, PINR, [id number], 2276-4, 2284-8, 2132-9, 25210-9 #### [facility] ([id number]) [address], [address] [address] Platelets (Bld) [#/Vol] 262 10*3/uL Normal 150-450 [facility] Comment on above: Performed By: #### C BCA, CMP, FEPR, PINR, [id number], 2276-4, 2284-8, 2132-9, 78925-0 #### [facility] ([id number]) [address], [address] [place] [address] XR CHEST 2 VWSon 11-13-2023 XR CHEST [...] [place] MD on 11/13/2023 11:33 AM Normal [facility] APTTon 11-06-2023 aPTT Coag (PPP) [Time] [facility] CBC AND AUTO DIFFon 11-06-19 24 ABSOLUTE BASOPHIL 0.0 X10E9/L Normal 0.0-0.2 [facility] Comment on above: Performed By: #### C BCA, CMP, FEPR, PINR, 18579-7, 2276-4, 2284-8, 2132-9, 16041-9 #### [facility] ([id number]) [address], [address] [place] [address] ABSOLUTE NEUTROPHIL 4.9 X10E9/L Normal 1.5-6.6 [facility] Comment on above: Performed By: #### C BCA, CMP, FEPR, PINR, 74014-1, 2276-4, 2284-8, 2132-9, 66488-2 #### [facility] ([id number]) [address], [address] [place] [address] Basophils/100 WBC (Bld) 0.5 % Normal [facility] Comment on above: Performed By: #### C BCA, CMP, FEPR, PINR, 29738-3, 2276-4, 2284-8, 2132-9, 98851-5 #### [facility] ([id number]) [address], [address] [place] [address] Eosinophils (Bld) [#/Vol] 0.1 10*3/uL Normal 0.0-0.4 [facility] Comment on above: Performed By: #### C BCA, CMP, FEPR, PINR, 71140-8, 2276-4, 2284-8, 2132-9, 97457-1 #### [facility] ([id number]) [address], [address] [place] [address] Eosinophils/100 WBC (Bld) 1.3 % Normal [facility] Comment on above: Performed By: #### C BCA, CMP, FEPR, PINR, 54239-3, 2276-4, 2284-8, 2132-9, 13002-9 #### [facility] ([id number]) [address], [facility] [address] [place] [address] Erythrocyte distribution width (RBC) [Ratio] 13.8 % Normal 11.5-15.0 [facility] Comment on above: Performed By: #### C BCA, CMP, FEPR, PINR, 69985-9, 2276-4, 2284-8, 2131-9, 02548-7 #### [facility] ([id number]) [address] [address] [place] [address] Hematocrit (Bld) [Volume fraction] 39.8 % Normal 35-47 [facility] Comment on above: Performed By: #### C BCA, CMP, FEPR, PINR, 05189-8, 2276-4, 2284-8, 2131-9, 60314-0 #### [facility] ([id number]) [address] [address] [place] [address] Hemoglobin (Bld) [Mass/Vol] 13.4 g/dL Normal 11.7-15.5 [facility] Comment on above: Performed By: #### C BCA, CMP, FEPR, PINR, 44564-9, 2276-4, 2284-8, 2132-9, 22270-7 #### [facility] ([id number]) [address] [address] [place] [address] Lymphocytes (Bld) [#/Vol] 2.0 10*3/uL Normal 1.0-3.5 [facility] Comment on above: Performed By: #### C BCA, CMP, FEPR, PINR, 87577-6, 2276-4, 2284-8, 2132-9, 51008-4 #### [facility] ([id number]) [address] [address] [place] [address] Lymphocytes/100 WBC (Bld) 27.6 % Normal [facility] Comment on above: Performed By: #### C BCA, CMP, FEPR, PINR, 47613-3, 2276-4, 2284-8, 2132-9, 27243-6 #### [facility] ([id number]) [address], [facility] [address] [place] [address] MCH (RBC) [Entitic mass] 29.0 pg Normal 27-34 [facility] Comment on above: Performed By: #### C BCA, CMP, FEPR, PINR, 04923-6, 2276-4, 2284-8, 2-9, 51392-5 #### [facility] ([id number]) [address], [address] [address] MCHC (RBC) [Mass/Vol] 33.7 g/dL Normal 32-36 [facility] Comment on above: Performed By: #### C BCA, CMP, FEPR, PINR, 38727-3, 2276-4, 2284-8, 2-9, 37495-4 #### [facility] ([id number]) [address] [address] MCV (RBC) [Entitic vol] 86 fL Normal 80-100 [facility] Comment on above: Performed By: #### C BCA, CMP, FEPR, PINR, 17833-0, 2276-4, 2284-8, 213-9, 89602-3 #### [facility] ([id number]) [address], [address] [place] [address] Monocytes (Bld) [#/Vol] 0.4 10*3/uL Normal 0-0.9 [facility] Comment on above: Performed By: #### C BCA, CMP, FEPR, PINR, 30383-0, 2276-4, 2284-8, 2132-9, 64848-0 #### [facility] ([id number]) [address], [address] [place] [address] Monocytes/100 WBC (Bld) 4.8 % Normal [facility] Comment on above: Performed By: #### C BCA, CMP, FEPR, PINR, 74944-9, 2276-4, 2284-8, 2132-9, 94187-8 #### [facility] ([id number]) [address], [address] [place] [address] Neutrophils/100 WBC (Bld) 65.8 % Normal [facility] Comment on above: Performed By: #### C BCA, CMP, FEPR, PINR, 59917-6, 2276-4, 2284-8, 2-9, 53541-8 #### [facility] ([id number]) [address], [address] [place] [address] Platelet mean volume (Bld) [Entitic vol] 10.3 fL Normal 7-12 [facility] Comment on above: Performed By: #### C BCA, CMP, FEPR, PINR, 63066-2, 2276-4, 2284-8, 2132-9, 14656-7 #### [facility] ([id number]) [address], [address] [place] [address] Platelets (Bld) [#/Vol] 248 10*3/uL Normal 150-450 [facility] Comment on above: Performed By: #### C BCA, CMP, FEPR, PINR, 51356-9, 2276-4, 2284-8, 2132-9, 97853-4 #### [facility] ([id number]) [address], [address] [place] [address] RBC COUNT 4.62 X10E12/L Normal 3.80-5.20 [facility] Comment on above: Performed By: #### C BCA, CMP, FEPR, PINR, 72832-9, 2276-4, 2284-8, 2-9, 32532-9 #### [facility] ([id number]) [address], [address] [place] [address] WBC (Bld) [#/Vol] 7.4 10*3/uL Normal 4.0-11.0 [facility] Comment on above: Performed By: #### C BCA, CMP, FEPR, PINR, 76936-9, 2276-4, 2284-8, 2-9, 79255-8 #### [facility] ([id number]) [address] [place] [address] CBC auto differentialon 10-28 Basophils (Bld) [#/Vol] 0.0 10*3/uL [facility] Basophils/100 WBC (Bld) 0.5 % [facility] [facility] Eosinophils (Bld) [#/Vol] 0.1 10*3/uL [facility] Eosinophils/100 WBC (Bld) 1.3 % [facility] Erythrocyte distribution width (RBC) [Ratio] 13.8 % 11.5 - 15.0 % [facility] Hematocrit (Bld) [Volume fraction] 39.8 % 35 - 47 % [facility] Hemoglobin (Bld) [Mass/Vol] 13.4 g/dL 11.7 - 15.5 g/dL [facility] Lymphocytes (Bld) [#/Vol] 2.0 10*3/uL [facility] Lymphocytes/100 WBC (Bld) 27.6 % [facility] MCH (RBC) [Entitic mass] 29.0 pg 27 - 34 pg [facility] MCHC (RBC) [Mass/Vol] 33.7 g/dL 32 - 3 6 g/dL [facility] MCV (RBC) [Entitic vol] 86 fL 80 - 100 fL [facility] Monocytes (Bld) [#/Vol] 0.4 10*3/uL [facility] Monocytes/100 WBC (Bld) 4.8 % [facility] Neutrophils (Bld) [#/Vol] 4.9 10*3/uL [facility] Neutrophils/100 WBC (Bld) 65.8 % [facility] Platelet mean volume (Bld) [Entitic vol] 10.3 fL 7 - 12 fL [facility] Platelets (Bld) [#/Vol] 248 10*3/uL [facility] RBC (Bld) [#/Vol] 4.62 10*6/uL [facility] WBC corrected for nucl RBC Auto (Bld) [#/Vol] 7.4 [facility] COMPREHENSIVE METABOLIC PANE Josue 11-06-2023 Albumin [Mass/Vol] 4.3 g/dL Normal 3.2-5.3 [facility] Comment on above: Performed By: #### C BCA, CMP, FEPR, PINR, 90014-5, 2276-4, 2284-8, 2132-9, 10048-3 #### [facility] ([id number]) [address], [address] [place] [address] ALP [Catalytic activity/Vol] 61 U/L Normal 39-130 [facility] Comment on above: Performed By: #### C BCA, CMP, FEPR, PINR, 71414-5, 2276-4, 2284-8, 2132-9, 43738-3 #### [facility] ([id number]) [address], [address] [place] [address] ALT [Catalytic activity/Vol] 19 U/L Normal 0-31 [facility] Comment on above: Performed By: #### C BCA, CMP, FEPR, PINR, 98914-2, 2276-4, 2284-8, 2132-9, 17539-1 #### [facility] ([id number]) [address], [address] [place] [address] Anion gap [Moles/Vol] 9 mmol/L Normal 5-15 [facility] Comment on above: Performed By: #### C BCA, CMP, FEPR, PINR, 52289-7, 2276-4, 2284-8, 2132-9, 01786-5 #### [facility] ([id number]) [address], [address] [place] [address] AST [Catalytic activity/Vol] 16 U/L Normal 0-41 [facility] Comment on above: Performed By: #### C BCA, CMP, FEPR, PINR, 39654-9, 2276-4, 2284-8, 2132-9, 82288-4 #### [facility] ([id number]) [address], [address] [place] [address] Bilirubin [Mass/Vol] 0.4 mg/dL Normal 0.3-1.2 [facility] Comment on above: Performed By: #### C BCA, CMP, FEPR, PINR, 44158-9, 2276-4, 2284-8, 2132-9, 11659-6 #### [facility] ([id number]) [address], [address] [place] [address] Calcium [Mass/Vol] 9.6 mg/dL Normal 8.5-10.5 [facility] Comment on above: Performed By: #### C BCA, CMP, FEPR, PINR, 42233-6, 2276-4, 2284-8, 2132-9, 61037-6 #### [facility] ([id number]) [address], [address] [place] [address] Chloride [Moles/Vol] 101 mmol/L Normal 98-109 [facility] Comment on above: Performed By: #### C BCA, CMP, FEPR, PINR, 86073-2, 2276-4, 2284-8, 2132-9, 68335-7 #### [facility] ([id number]) [address], [address] [place] [address] CO2 [Moles/Vol] 30 mmol/L Normal 22-32 [facility] Comment on above: Performed By: #### C BCA, CMP, FEPR, PINR, 05956-2, 2276-4, 2284-8, 2131-9, 86398-3 #### [facility] ([id number]) [address], [address] [place] [address] Creatinine [Mass/Vol] 0.71 mg/dL Normal 0.40-1.00 [facility] Comment on above: Result Comment: METH OD TRACEABLE TO IDMS STANDARD Performed By: #### C BCA, CMP, FEPR, PINR, 69552-7, 2276-4, 2284-8, 2131-9, 93574-6 #### [facility] ([id number]) [address], [address] [place] [address] eGFR (CKD-EPI) NON-RACE DEPENDENT >90 Normal >59 [facility] Comment on above: Result Comment: Reported eGFR is based on the CKD-EPI 2020 equation that does not use a race coefficient. Performed By: #### C BCA, CMP, FEPR, PINR, 08494-4, 2276-4, 2284-8, 2131-9, 85034-2 #### [facility] ([id number]) [address], [address] [place] [address] Glucose [Mass/Vol] 108 mg/dL High 65-99 [facility] Comment on above: Performed By: #### C BCA, CMP, FEPR, PINR, 46330-5, 2276-4, 2284-8, 2131-9, 85398-0 #### [facility] ([id number]) [address], [address] [place] [address] Potassium [Moles/Vol] 4.6 mmol/L Normal 3.5-5.0 [facility] Comment on above: Performed By: #### C BCA, CMP, FEPR, PINR, 26598-3, 2276-4, 2284-8, 2132-9, 61111-1 #### [facility] ([id number]) [address], [address] [place] [address] Protein [Mass/Vol] 7.5 g/dL Normal 6.0-8.0 [facility] Comment on above: Performed By: #### C BCA, CMP, FEPR, PINR, 38809-9, 2276-4, 2284-8, 2132-9, 92356-9 #### [facility] ([id number]) [address] [place] [address] Sodium [Moles/Vol] 140 mmol/L Normal 134-146 [facility] Comment on above: Performed By: #### C BCA, CMP, FEPR, PINR, 45666-6, 2276-4, 2284-8, 2132-9, 95494-1 #### [facility] ([id number]) [address] [place] [address] Urea nitrogen [Mass/Vol] 22 mg/dL Normal 5-23 [facility] Comment on above: Performed By: #### C BCA, CMP, FEPR, PINR, 84896-6, 2276-4, 2284-8, 2132-9, 24692-3 #### [facility] ([id number]) [address], [address] [place] [address] Cobalamin (Vitamin B12) [Mas s/Vol]on 11-06-2023 [facility] Comprehensive metabolic pane josue 11-06-2023 Albumin [Mass/Vol] 4.3 g/dL 3.2 - 5.3 g/dL [facility] ALP [Catalytic activity/Vol] 61 U/L 39 - 130 U/L [facility] ALT No additional P-5'-P [Catalytic activity/Vol] 19 U/L 0 - 31 U/L [facility] Anion gap [Moles/Vol] 9 mmol/L 5 - 15 mmol/L [facility] AST [Catalytic activity/Vol] 16 U/L 0 - 41 U/L [facility] Bilirubin [Mass/Vol] 0.4 mg/dL 0.3 - 1 .2 mg/dL [facility] Calcium [Mass/Vol] 9.6 mg/dL 8.5 - 10. 5 mg/dL [facility] Chloride [Moles/Vol] 101 mmol/L 98 - 10 9 mmol/L [facility] CO2 [Moles/Vol] 30 mmol/L 22 - 32 mmol/L [facility] Creatinine [Mass/Vol] 0.71 mg/dL 0.40 - 1.00 mg/dL [facility] Comment on above: METHOD TRACEABLE TO [facility] STANDARD eGFR (CKD-EPI)non-race dependent - PINF [facility] Comment on above: Reported eGFR is based on the CKD-EPI 2020 equation that does not use a race coefficient. Glucose [Mass/Vol] 108 mg/dL High 65 - 99 mg/dL [facility] Interpretation and review of laboratory results Abnormal [facility] Potassium [Moles/Vol] 4.6 mmol/L 3.5 - 5.0 mmol/L [facility] Protein [Mass/Vol] 7.5 g/dL 6.0 - 8.0 g/dL [facility] Sodium [Moles/Vol] 140 mmol/L 134 - 146 mmol/L [facility] Urea nitrogen [Mass/Vol] 22 mg/dL 5 - 23 mg/dL [facility] ECG 12 leadon 11-06-2023 TRACEMASTERVUE [facility] FERRITINon 11-06-2023 Ferritin [Mass/Vol] 189 ng/mL Normal 11-307 [facility] Comment on above: Performed By: #### C BCA, CMP, FEPR, PINR, 22028-0, 2276-4, 2284-8, 2132-9, 87277-7 #### [facility] ([id number]) [address] [place] [address] Ferritinon 11-06-2023 Ferritin [Mass/Vol] 189 ng/mL 11 - 307 ng/mL [facility] Folateon 11-06-2023 Folate [Mass/Vol] ng/mL 5.8 - PINF ng/mL [facility] Comment on above: NEW REFERENCE RANGE Folate [Mass/Vol]on 11-06-19 24 [facility] FOLIC ACID >25.0 Normal >5.8 [facility] Comment on above: Result Comment: NEW REFERENCE RANGE Performed By: #### C BCA, CMP, FEPR, PINR, 95414-9, 2276-4, 2284-8, 2132-9, 34568-6 #### [facility] ([id number]) [address], [address] [place] [address] IRON PROFILEon 11-06-2023 Iron [Mass/Vol] 100 ug/dL Normal 50-170 [facility] Comment on above: Performed By: #### C BCA, CMP, FEPR, PINR, 79806-1, 2276-4, 2284-8, 2132-9, 22030-9 #### [facility] ([id number]) [address], [address] [place] [address] IRON BINDING 305 ug/dL Normal 250-425 [facility] Comment on above: Performed By: #### C BCA, CMP, FEPR, PINR, 69642-9, 2276-4, 2284-8, 2132-9, 45085-3 #### [facility] ([id number]) [address], [address] [place] [address] IRON SATURATION 33 % SATURATION Normal 15-50 [facility] Comment on above: Performed By: #### C BCA, CMP, FEPR, PINR, 06106-1, 2276-4, 2284-8, 2132-9, 30386-0 #### [facility] ([id number]) [address], [address] [place] [address] Iron and TIBCon 11-06-2023 Iron [Mass/Vol] 100 ug/dL 50 - 170 ug/dL [facility] Iron binding capacity [Mass/Vol] 305 ug/dL 250 - 425 ug/dL [facility] Iron saturation [Mass fraction] 33 [facility] No Panel Informationon 11-06 [facility] PROTIME AND INRon 11-06-2023 INR Coag (PPP) [Relative time] 1.1 {INR} Normal 0.8-1.1 [facility] Comment on above: Performed By: #### C BCA, CMP, FEPR, PINR, 32377-5, 2276-4, 2284-8, 2132-9, 39664-3 #### [facility] ([id number]) [address] [place] [address] PT Coag (PPP) [Time] 12.8 s Normal 9.8-13.2 [facility] Comment on above: Performed By: #### C BCA, CMP, FEPR, PINR, 46579-6, 2276-4, 2284-8, 2132-9, 09589-5 #### [facility] ([id number]) [address] [place] [address] Protime & INRon 11-06-2023 INR Coag (PPP) [Relative time] 1.1 {INR} [facility] PT Coag (PPP) [Time] 12.8 s [facility] Thiamine (Bld) [Mass/Vol]on 11-06-2023 THIAMIN VITAMIN B1 See Below Normal [facility] Comment on above: Result Comment: NOTE TEST RESULT FLAG UNIT REF.RANGE ------- Vitamin B1 (TDP), Whole Blood 203.0 nmol/L 84.3-213.3 This assay measures the concentration of thiamine diphosphate (TDP), the primary active form of vitamin B1. Approximately 90 percent of vitamin B1 present in whole blood is TDP. Thiamine and thiamine monophosphate, which comprise the remaining 10 percent, are not measured. This test was developed and its performance characteristics determined by [facility]'s [facility] Pathology and Laboratory Medicine [facility] ([facility]). It has not been cleared or approved by the FDA. [facility] is regulated under CLIA as qualified to perform high-complexity testing. This test is used for clinical purposes. It should not be regarded as investigational or for research. Test Performed By: [place] [address] Laborer Driver: Alfredo Chu III, M.D. CLIA #[id number] Performed By: #### C BCA, CMP, FEPR, PINR, 59544-6, 6-4, 2283-8, 2132-06, 57645-3 #### [facility] ([id number]) [address] [place] [address] VITAMIN B12on 11-06-2023 Cobalamin (Vitamin B12) [Mass/Vol] 737 pg/mL Normal 180-914 [facility] Comment on above: Performed By: #### C BCA, CMP, FEPR, PINR, 26641-4, 6-4, 4-8, 2132-06, 90841-5 #### [facility] ([id number]) [address], [address] [place] [address] Vitamin B12on 11-06-2023 Cobalamin (Vitamin B12) [Mass/Vol] 737 pg/mL 180 - 914 pg/mL [facility] Vitamin D 25 hydroxyon 11-06 Vitamin D+Metabolites [Mass/Vol] 26.4 ng/mL Low 30 - 100 ng/mL [facility] Comment on above: Vitamin D status 25 [place] Vitamin D Deficiency <20 ng/mL Insufficiency 20-29 ng/mL Sufficiency 30-100 ng/mL Toxicity >100 ng/mL NOTE: A pediatric reference range has not been established by the kaiako kohanga reo of this kit. The [place] [employer] recommends a Vitamin D level of = or >20ng/mL in infants and children. Vitamin D+Metabolites [Mass/ Vol]on 11-06-2023 Interpretation and review of laboratory results Abnormal [facility] VITAMIN D 25 HYD TOT 26.4 ng/mL Low 30-100 [facility] Comment on above: Result Comment: Vitamin D status 25 [place] Vitamin D Deficiency <20 ng/mL Insufficiency 20-29 ng/mL Sufficiency 30-100 ng/mL Toxicity >100 ng/mL NOTE: A pediatric reference range has not been established by the kaiako kohanga reo of this kit. The [place] [employer] recommends a Vitamin D level of = or >20ng/mL in infants and children. Performed By: #### C BCA, CMP, FEPR, PINR, 67596-3, 2276-4, 2284-8, 2131-9, 79020-9 #### [facility] ([id number]) [address], [address] [place] [address] aPTT Coag (PPP) [Time]on aPTT Coag (Bld) [Time] 35 s Normal 26-37 [facility] Comment on above: Performed By: #### C BCA, CMP, FEPR, PINR, 45641-7, 2276-4, 2284-8, 2131-9, 49140-3 #### [facility] ([id number]) [address] [place] [address] Basic Metabolic Panelon 06-29 GFR/1.73 sq M.predicted MDRD (S/P/Bld) [Vol rate/Area] mL/min/{1.73_m2} Normal [facility] Comment on above: Order Comment: Reaso n for Exam Elevated cholesterol FASTING. JKW Performed By: #### B MP #### [facility] [address] [place] [address] [place] Calcium [Mass/volume] in Ser um or PlasmaOrdered By: Terese Braxton on 07-25-2023 Calcium [Mass/Vol] 9.8 mg/dL Normal 8.6-10.3 [facility] Comment on above: Order Comment: Reaso n for Exam Elevated cholesterol FASTING. JKW Result Comment: PERF ORMED BY: [place] [address] PATHOLOGIST INSPECTOR PENETRANT SILVINA MONTESINOS M.D. Performed By: #### B MP #### [place] [address] [place] Carbon dioxide, total [Moles /volume] in Serum or PlasmaOrdered By: Terese Braxton on 07-25-2023 CO2 [Moles/Vol] 28.6 mmol/L Normal 21.0-31.0 [facility] Comment on above: Order Comment: Reaso n for Exam Elevated cholesterol FASTING. JKW Performed By: #### B MP #### [facility] [address] [place] [address] [place] Chloride [Moles/volume] in S anh or PlasmaOrdered By: Terese Braxton on 07-25-2023 Chloride [Moles/Vol] 105 mmol/L Normal 98-107 [facility] Comment on above: Order Comment: Reaso n for Exam Elevated cholesterol FASTING. JKW Performed By: #### B MP #### [facility] [address] [place] [address] [place] Creatinine [Mass/volume] in Serum or PlasmaOrdered By: Terese Braxton on 07-25-2023 Creatinine [Mass/Vol] 0.76 mg/dL Normal 0.60-1.20 [facility] Comment on above: Order Comment: Reaso n for Exam Elevated cholesterol FASTING. JKW Performed By: #### B MP #### [facility] [address] [place] [id number] [place] Glucose [Mass/volume] in Ser um or PlasmaOrdered By: Terese Braxton on 07-25-2023 Glucose [Mass/Vol] 120 mg/dL High 70-100 [facility] Comment on above: ADA recommended refe rence rangeRandom Glucose Reference Range is dependent on time and content of last meal. Glucose of more than 200 mg/dL in a nonstressed, ambulatory subject supports the diagnosis of Diabetes Mellitus. Order Comment: Reaso n for Exam Elevated cholesterol FASTING. JKW Result Comment: Linn om Glucose Reference Range is dependent on time and content of last meal. Glucose of more than 200 mg/dL in a nonstressed, ambulatory subject supports the diagnosis of Diabetes Mellitus. ADA recommended reference range Performed By: #### B MP #### [facility] [address] [place] [address] [facility] No Panel InformationOrdered By: Terese Braxton on 07-25-2023 Estimated GFR (CKD-EPI) > 60.0 mL/Min [facility] Creatinine Clearance (Chem N/A [facility] No Panel Informationon 07-25 > 60.0 Normal [facility] [address] DO Work Phone: 11.9\S\11.9 Normal 6.0-15.0 [facility] [address] DO Work Phone: 9.8\S\9.8 Normal 8.6-10.3 [facility] [address] DO Work Phone: Comment on above: PERFORMED BY:[facility] [place], [place] [id number] MEDICAL DIRECTORSILVINA MONTESINOS M.D. 28.6\S\28.6 Normal 21.0-31.0 [facility] [address] DO Work Phone: 105\S\105 Normal 98-107 [facility] [address] DO Work Phone: 4.5\S\4.5 Normal 3.5-5.1 [facility] [address] DO Work Phone: 141\S\141 Normal 136-145 [facility] [address] DO Work Phone: 0.76\S\0.76 Normal 0.60-1.20 -[facility] [address] DO Work Phone: 19\S\19 Normal 7-25 [facility] 250 DO Work Phone: 120\S\120 above high threshold 70-100 -[facility] [place] 250 DO Work Phone: Comment on above: Random Glucose Refer ence Range is dependent on time and content of last meal. Glucose of more than 200 mg/dL in a nonstressed, ambulatory subject supports the diagnosis of Diabetes Mellitus. ADA recommended reference range Potassium [Moles/volume] in Serum or PlasmaOrdered By: Terese Braxton on 07-25-2023 Potassium [Moles/Vol] 4.5 mmol/L Normal 3.5-5.1 [facility] Comment on above: Order Comment: Reaso n for Exam Elevated cholesterol FASTING. JKW Performed By: #### B MP #### [facility] [address] Serum or plasma anion gap de terminationOrdered By: Terese Braxton on 07-25-2023 Anion gap [Moles/Vol] 11.9 mmol/L Normal 6.0-15.0 [facility] Comment on above: Order Comment: Reaso n for Exam Elevated cholesterol FASTING. JKW Performed By: #### B MP #### [facility] [address] [place] [address] [place] Sodium [Moles/volume] in Ser um or PlasmaOrdered By: Terese Braxton on 07-25-2023 Sodium [Moles/Vol] 141 mmol/L Normal 136-145 [facility] Comment on above: Order Comment: Reaso n for Exam Elevated cholesterol FASTING. JKW Performed By: #### B MP #### [facility] [address] [place] [id number] [place] Urea nitrogen [Mass/volume] in Serum or PlasmaOrdered By: Terese Braxton on 07-25-2023 Urea nitrogen [Mass/Vol] 19 mg/dL Normal 7-25 [facility] Comment on above: Order Comment: Reaso n for Exam Elevated cholesterol FASTING. JKW Performed By: #### B #### [place] [id number] [facility] Cardiovasc Arrhythmia Result son 07-23-2023 Cardiovasc Arrhythmia Results Reason For Visit Reason for Visit: Holter Monitor: PAIGE is here for the application of a 48 hour Holter monitor. Ordering Physician: Dr. Terese Braxton MD Diagnosis: palps [facility] equipment agreement signed. PAIGE understands monitor is to be returned on: 07/25/2023 Monitor number [id number] applied. Holter monitor printed and placed on [...] Aug 01 2023 3:41PM EST (Author) Normal [facility] Office Visit (Cardiology)on 07-15-2023 Follow-up visit Diagnoses/Problems [...] 50.0-59.9, adult Basic Metabolic Panel; Status:Active; Requested for:[id number]; Hypertension Start: Lisinopril 40 MG Oral Tablet; TAKE 1 TABLET DAILY Morbid obesity with BMI of 50.0-59.9, adult Healthy Weight Tips; Status:Complete; Done: [id number] Some eating tips that can help you lose weight.; Status:Complete; Done: [id number] Palpitations Start: Magnesium Oxide 400 MG Oral Tablet; TAKE 1 TABLET TWICE DAILY IO EKG Electrocardiogram- 12 Lead; Status:Complete; Done: [id number] IO Holter Monitor up to 48 Hrs; Status:Active - Perform Order; Requested for:[id number]; SocHx: Current every day smoker You need to quit smoking.; Status:Complete; Done: [id number] Tobacco Use Screening; Status:Complete; Done: [id number] Patient Instructions Please bring all medicines, vitamins, [...] completed labs 7-10 days Chief Complaint PAIGE CMCARTY is being seen for a 6 month [...] Scheduled for bariatric surgery next month in [place], going through different aspects of work-up. Has [...] normal-sized aort (more content not included)... Normal [employer] Tobacco Screening.on 023 Tobacco use status CP a) Yes [facility] 250 DO Work Phone: Tobacco Screening. Yes MP-[facility] [address] DO Work Phone: XR elbow RT min 3V*on 2022 XR elbow RT min 3V* [facility] Lab42 Other XR elbow RT min 3V* [facility] [employer] Other XR elbow RT min 3V* [address] [place] [address] Lab42 Other XR elbow RT min 3V* [place] [address] Lab42 Other XR elbow RT min 3V* XRay Report [facility] [employer] Other XR elbow RT min 3V* Signed Lab42 Other XR elbow RT min 3V* Patient: Paige Mccarty MR#: [id number] [facility]42 Other XR elbow RT min 3V* : 1965 Acct:[id number] Lab42 Other XR elbow RT min 3V* Age/Sex: 58 / F ADM Date: 04/23/23 Lab42 Other XR elbow RT min 3V* Loc: XDS Room: Typ e: [facility] Lab42 Other XR elbow RT min 3V* Attending Dr: Awais Bright DO Lab42 Other XR elbow RT min 3V* Copies to: [employer] Other XR elbow RT min 3V* Ordering Provider: Deshawn Bright DO Lab42 Other XR elbow RT min 3V* Date of Service: 04/23/23 Lab42 Other XR elbow RT min 3V* XR/XR elbow RT min 3V*: Fall with injury Lab42 Other XR elbow RT min 3V* 4 views RIGHTelbow plain film Lab42 Other XR elbow RT min 3V* COMPARISON :None Lab42 Other XR elbow RT min 3V* HISTORY: Fell 2 elieser hs ago. Medial RIGHT elbow pain Lab42 Other XR elbow RT min 3V* ACUTE FINDINGS: None [facility] Other XR elbow RT min 3V* DEGENERATIVE CHANGE: Unremarkable [facility] Other XR elbow RT min 3V* SOFT TISSUE FINDINGS : 3 mm soft tissue radiodensity near the olecranon present. This likely [facility] Other XR elbow RT min 3V* incidental. [place] Other XR elbow RT min 3V* JOINT EFFUSION: None [facility] Other XR elbow RT min 3V* POSTOP CHANGES: None [facility] Other XR elbow RT min 3V* BONE MINERALIZATION: Adequate [facility] Other XR elbow RT min 3V* XR/XR elbow RT min 3V* [facility] Other XR elbow RT min 3V* IMPRESSION: No acute fracture. [facility] Other XR elbow RT min 3V* Impression dictated by: Bishnu Correia M.D.04/23/2023 1:33 PM [facility] Other XR elbow RT min 3V* Dictation Location: [place] [address] [facility] Other XR elbow RT min 3V* Transcribed By: JOE 04/23/23 1333 [facility] Other XR elbow RT min 3V* Dictated By: Bishnu Correia DO 04/23/23 1325 [facility] Other XR elbow RT min 3V* Signed By: [facility] Other XR elbow RT min 3V* 04/23/23 1333 No rt [employer] Other XR elbow RT min 3V* [facility] Main [place] [address] [place] [address] XRay Report Signed Patient: Paige Mccarty MR#: [id number] : 1965 Acct:[id number] Age/Sex: 58 / F ADM Date: 04/23/23 Loc: [facility] Room: Type: [facility] Attending Dr: wAais Bright DO Copies to: Awais Bright DO [...] Bishnu Correia M.D.04/23/2023 1:33 PM Dictation Location: [place] [address] Transcribed By: [facility] 04/23/23 1333 Dictated By: Bishnu Correia DO 04/23/23 1325 Signed By: 04/23/23 1333 Normal [facility] Alanine aminotransferase [En zymatic activity/volume] in Serum or PlasmaOrdered By: Awais Bright on 04-15-2023 ALT [Catalytic activity/Vol] 16 U/L 7-52 [facility] Albumin [Mass/volume] in Ser um or Plasma by Bromocresol green (BCG) dye binding methoOrdered By: Awais Bright on 04-15-2023 Albumin BCG dye [Mass/Vol] 4.1 g/dL 3.5-5.7 [facility] Alkaline phosphatase [Enzyma tic activity/volume] in Serum or PlasmaOrdered By: Awais Bright on 04-15-2023 ALP [Catalytic activity/Vol] 59 U/L 34-104 [facility] Aspartate aminotransferase [ Enzymatic activity/volume] in Serum or PlasmaOrdered By: Awais Bright on 04-15-2023 AST [Catalytic activity/Vol] 14 U/L 13-39 [facility] Basophils Auto (Bld) [#/Vol] Ordered By: Awais Bright on 04-15-2023 Basophils (Bld) [#/Vol] 0.0 10*3/uL 0.0-0.2 [facility] Basophils/100 WBC Auto (Bld) Ordered By: Awais Bright on 04-15-2023 Basophils/100 WBC (Bld) 0.6 % . [facility] Bilirubin.direct [Mass/volum e] in Serum or PlasmaOrdered By: Awais Bright on 04-15-2023 Bilirubin.direct [Mass/Vol] 0.10 mg/dL 0.03-0.18 [facility] Bilirubin.total [Mass/volume ] in Serum or PlasmaOrdered By: Awais Bright on 04-15-2023 Bilirubin [Mass/Vol] 0.5 mg/dL 0.3-1.0 [facility] Blood thiamine measurement ( moles/volume)Ordered By: López Kidd on 04-15-2023 Thiamine (Bld) [Moles/Vol] 153.0 nmol/L 66.5-200.0 [facility] Comment on above: This test was develo ped and its performance characteristicsdetermined by [employer]. It has not been cleared orapproved by the Food and Drug Administration.Performed at: [address] [id number] Director: Argenis Reynolds MD, Phone: [phone] Calcium [Mass/volume] in Ser um or PlasmaOrdered By: Awais Bright on 04-15-2023 Calcium [Mass/Vol] 9.6 mg/dL 8.6-10.3 [facility] Carbon dioxide, total [Moles /volume] in Serum or PlasmaOrdered By: Awais Bright on 04-15-2023 CO2 [Moles/Vol] 26.3 mmol/L 21.0-31.0 [facility] Chloride [Moles/volume] in S anh or PlasmaOrdered By: Awais Bright on 04-15-2023 Chloride [Moles/Vol] 104 mmol/L 98-107 [facility] Cholesterol [Mass/volume] in Serum or PlasmaOrdered By: Awais Bright on 04-15-2023 Cholesterol [Mass/Vol] 190 mg/dL 140-200 [facility] Comment on above: Chol less than 200 m g/dl low riskChol 201-239 mg/dl borderline riskChol 240 mg/dl and greater high risk Cholesterol in LDL Calc [Mas s/Vol]Ordered By: Awais Bright on 04-15-2023 Cholesterol in LDL [Mass/Vol] 109 mg/dL 0-100 [facility] Comment on above: LDL ATP III CLASSIFI CATIONLDL less than 100 mg/dL OptimalLDL 100-129 mg/dL Near or above optimalLDL 130-159 mg/dL Borderline highLDL 160-189 mg/dL HighLDL greater than 189 mg/dL Very high Cholesterol in VLDL Calc [Ma ss/Vol]Ordered By: Awais Bright on 04-15-2023 Cholesterol in VLDL [Mass/Vol] 32 mg/dL [facility] Creatinine [Mass/volume] in Serum or PlasmaOrdered By: Awais Bright on 04-15-2023 Creatinine [Mass/Vol] 0.75 mg/dL 0.60-1.20 [facility] Eosinophils Auto (Bld) [#/Vo l]Ordered By: Awais Bright on 04-15-2023 Eosinophils (Bld) [#/Vol] 0.1 10*3/uL 0.0-0.45 [facility] Eosinophils/100 WBC Auto (Bl d)Ordered By: Awais Bright on 04-15-2023 Eosinophils/100 WBC (Bld) 1.2 % . [facility] Erythrocyte distribution wid th Auto (RBC) [Ratio]Ordered By: Awais Bright on 04-15-2023 Erythrocyte distribution width (RBC) [Ratio] 13.8 % 11.9-15.3 [facility] Globulin Calc (S) [Mass/Vol] Ordered By: Awais Bright on 04-15-2023 Globulin (S) [Mass/Vol] 2.5 g/dL [facility] Glucose [Mass/volume] in Ser um or PlasmaOrdered By: Awais Bright on 04-15-2023 Glucose [Mass/Vol] 110 mg/dL 70-100 [facility] Comment on above: ADA recommended refe rence rangeRandom Glucose Reference Range is dependent on time and content of last meal. Glucose of more than 200 mg/dL in a nonstressed, ambulatory subject supports the diagnosis of Diabetes Mellitus. Glucose mean value [Mass/vol ume] in Blood Estimated from glycated hemoglobinOrdered By: Awais Bright on 04-15-2023 Average glucose Estimated from glycated hemoglobin (Bld) [Mass/Vol] 134 mg/dL [facility] Hematocrit Auto (Bld) [Volum e fraction]Ordered By: Awais Bright on 04-15-2023 Hematocrit (Bld) [Volume fraction] 40.8 % 34.0-46.4 [facility] Hemoglobin A1c percentageOrd ered By: Awais Bright on 04-15-2023 HbA1c (Bld) [Mass fraction] 6.3 % 4.3-5.6 [facility] Comment on above: Increased risk for d iabetes: 5.7 - 6.4diabetes: >6.4glycemic control for adults with diabetes: <7.0 Hemoglobin [Mass/volume] in BloodOrdered By: Awais Bright on 04-15-2023 Hemoglobin (Bld) [Mass/Vol] 13.6 g/dL 11.8-15.4 [facility] Iron [Mass/volume] in Serum or PlasmaOrdered By: López Kidd on 04-15-2023 Iron [Mass/Vol] 92 ug/dL 50-212 [facility] Leukocytes [#/volume] correc margarita for nucleated erythrocytes in Blood by Automated counOrdered By: Awais Bright on 04-15-2023 WBC corrected for nucl RBC Auto (Bld) [#/Vol] 7.5 10*3/uL 3.8-11.6 [facility] Lymphocytes Auto (Bld) [#/Vo l]Ordered By: Awais Bright on 04-15-2023 Lymphocytes (Bld) [#/Vol] 1.9 10*3/uL 1.00-4.8 [facility] Lymphocytes/100 WBC Auto (Bl d)Ordered By: Awais Bright on 04-15-2023 Lymphocytes/100 WBC (Bld) 25.1 % . [facility] MCH Auto (RBC) [Entitic mass ]Ordered By: Awais Bright on 04-15-2023 MCH (RBC) [Entitic mass] 28.5 pg 24.7-34.3 [facility] MCHC Auto (RBC) [Mass/Vol]Or dered By: Awais Bright on 04-15-2023 MCHC (RBC) [Mass/Vol] 33.2 g/dL 32.0-35.0 [facility] MCV Auto (RBC) [Entitic vol] Ordered By: Awais Bright on 04-15-2023 MCV (RBC) [Entitic vol] 85.7 fL 80-100 [facility] Monocytes Auto (Bld) [#/Vol] Ordered By: Awais Bright on 04-15-2023 Monocytes (Bld) [#/Vol] 0.4 10*3/uL 0.0-0.8 [facility] Monocytes/100 WBC Auto (Bld) Ordered By: Awais Bright on 04-15-2023 Monocytes/100 WBC (Bld) 4.9 % . [facility] Neutrophils Auto (Bld) [#/Vo l]Ordered By: Awais Bright on 04-15-2023 Neutrophils (Bld) [#/Vol] 5.1 10*3/uL 1.8-7.7 [facility] Neutrophils/100 WBC Auto (Bl d)Ordered By: Awais Bright on 04-15-2023 Neutrophils/100 WBC (Bld) 68.2 % . [facility] No Panel InformationOrdered By: Awais Bright on 04-15-2023 Estimated GFR (CKD-EPI) > 60.0 mL/Min [facility] Creatinine Clearance (Chem N/A [facility] Nucleated erythrocytes [Pres ence] in Blood by Automated countOrdered By: Awais Bright on 04-15-2023 Nucleated RBC Auto Ql (Bld) 0.1 /100{WBC} 0-0.5 [facility] Parathyrin.intact [Mass/volu me] in Serum or PlasmaOrdered By: López Kidd on 04-15-2023 Parathyrin.intact [Mass/Vol] 31.3 pg/mL [facility] Platelet mean volume Auto (B ld) [Entitic vol]Ordered By: Awais Bright on 04-15-2023 Platelet mean volume (Bld) [Entitic vol] 9.8 fL 6.3-10.7 [facility] Platelets Auto (Bld) [#/Vol] Ordered By: Awais Bright on 04-15-2023 Platelets (Bld) [#/Vol] 231 10*3/uL 150-450 [facility] Potassium [Moles/volume] in Serum or PlasmaOrdered By: Awais Bright on 04-15-2023 Potassium [Moles/Vol] 4.1 mmol/L 3.5-5.1 [facility] Protein [Mass/volume] in Ser um or PlasmaOrdered By: Awais Bright on 04-15-2023 Protein [Mass/Vol] 6.6 g/dL 6.4-8.9 [facility] RBC Auto (Bld) [#/Vol]Ordere d By: Awais Bright on 04-15-2023 RBC (Bld) [#/Vol] 4.76 10*6/uL 3.60-5.00 [facility] Serum or plasma albumin/glob ulin mass ratioOrdered By: Awais Bright on 04-15-2023 Albumin/Globulin [Mass ratio] 1.6 {ratio} [facility] Serum or plasma anion gap de terminationOrdered By: Awais Bright on 04-15-2023 Anion gap [Moles/Vol] 12.8 mmol/L 6.0-15.0 [facility] Serum or plasma high density lipoprotein (HDL) cholesterol measurementOrdered By: Awais Bright on 04-15-2023 Cholesterol in HDL [Mass/Vol] 49 mg/dL 23-92 [facility] Comment on above: HDL CHOL ATP-III CLA SSIFICATION Cardiovascular RiskHDL > or equal to 60 mg/dL LOWHDL < 40 mg/dL HIGH Serum or plasma non-glucuron idated bilirubin measurement (mass/volume)Ordered By: Awais Bright on 04-15-2023 Bilirubin.indirect [Mass/Vol] 0.4 mg/dL [facility] Serum or plasma total choles terol/high density lipoprotein (HDL) cholesterol mass ratOrdered By: Awais Bright on 04-15-2023 Cholesterol.total/Chol esterol in HDL [Mass ratio] 3.9 {ratio} <5.0 [facility] Sodium [Moles/volume] in Ser um or PlasmaOrdered By: Awais Bright on 04-15-2023 Sodium [Moles/Vol] 139 mmol/L 136-145 [facility] Thyrotropin [Units/volume] i n Serum or PlasmaOrdered By: López Kidd on 04-15-2023 TSH Qn 1.31 m[IU]/L 0.45-5.33 [facility] Triglyceride [Mass/volume] i n Serum or PlasmaOrdered By: Awais Brihgt on 04-15-2023 Triglyceride [Mass/Vol] 162 mg/dL 0-149 [facility] Comment on above: TRIG ATP III CLASSIF ICATIONTRIG less than 150 mg/dL NormalTRIG 150-199 mg/dL Borderline highTRIG 200-500 mg/dL High TRIG greater than 500 mg/dL Very highStandard traceable to the Center for Disease Conrtrol and Prevention (CDC) test method. Urea nitrogen [Mass/volume] in Serum or PlasmaOrdered By: Awais Bright on 04-15-2023 Urea nitrogen [Mass/Vol] 27 mg/dL 7-25 [facility] Vitamin B12 ser/plasOrdered By: López Kidd on 04-15-2023 Cobalamin (Vitamin B12) [Mass/Vol] 810 pg/mL 180-914 [facility] Vitamin D+Metabolites [Mass/ volume] in Serum or PlasmaOrdered By: López Kidd on 04-15-2023 Vitamin D+Metabolites [Mass/Vol] 25.1 ng/mL 30-100 [facility] Comment on above: VITAMIN D STATUS 25( [place])VITAMIN D RANGE (ng/mL) Deficient <20 Insufficient 20 to <30Sufficient 30 to 100Reference: Yasmany MF,Chelsy NC, Corina MAYER, et al. Evaluation,treatment, and prevention of vitamin D deficiency; an Endocrine Society clinical practice guideline. JCEM. 2010; 96(7):1911-30. WBC Auto (Bld) [#/Vol]Ordere d By: Awais Bright on 04-15-2023 WBC (Bld) [#/Vol] 7.5 10*3/uL 3.8-11.6 [facility] CARDIAC STRESS/REST INJE CTIONon 02-13-2023 [facility] CARDIAC STRESS/REST INJECTION Patient Name: PAIGE MCCARTY STUDY: MYOCARDIAL PERFUSION STRESS TEST WITH LEXISCAN Performing facility: [facility], [address] [place] [address], [address], [place] [id number] [facility] Provider: Terese Braxton MD, [facility] PCP: Dr. Lisa Bright Supervising provider: Juan Sharp MD INDICATION: Abnormal EKG; Fatigue SOB HISTORY: Gender: F; Age: 57 y/o ; Height: 0 cm; Weight: 138.110369 kg. Abnormal EKG; High Cholesterol; HTN; SOB; Fatigue; Currently smoking. COMPARISON: No comparison. ACCESSION NUMBER(S): [id number]; [id number]; [id number] ORDERING CLINICIAN: TERESE BRAXTON TECHNIQUE: TWO DAY [...] Electronically signed by: JUAN SHARP MD Normal [facility] No Panel Informationon 02-13 Normal -[facility] 250 DO Work Phone: Calcium [Mass/volume] in Ser um or PlasmaOrdered By: Terese Braxton on 01-25-2023 Calcium [Mass/Vol] 9.4 mg/dL 8.6-10.3 [facility] Carbon dioxide, total [Moles /volume] in Serum or PlasmaOrdered By: Terese Braxton on 01-25-2023 CO2 [Moles/Vol] 27.2 mmol/L 21.0-31.0 [facility] Chloride [Moles/volume] in S anh or PlasmaOrdered By: Terese Braxton on 01-25-2023 Chloride [Moles/Vol] 104 mmol/L 98-107 [facility] Creatinine [Mass/volume] in Serum or PlasmaOrdered By: Terese Braxton on 01-25-2023 Creatinine [Mass/Vol] 0.80 mg/dL 0.60-1.20 [facility] Glucose [Mass/volume] in Ser um or PlasmaOrdered By: Terese Braxton on 01-25-2023 Glucose [Mass/Vol] 134 mg/dL 70-100 [facility] Comment on above: ADA recommended refe rence rangeRandom Glucose Reference Range is dependent on time and content of last meal. Glucose of more than 200 mg/dL in a nonstressed, ambulatory subject supports the diagnosis of Diabetes Mellitus. No Panel InformationOrdered By: Terese Braxton on 01-25-2023 Estimated GFR (CKD-EPI) > 60.0 mL/Min [facility] Creatinine Clearance (Chem N/A [facility] No Panel Informationon 01-25 > 60.0 Normal [facility] 250 DO Work Phone: 10.9\S\10.9 Normal 6.0-15.0 [facility] 250 DO Work Phone: 9.4\S\9.4 Normal 8.6-10.3 [facility] 250 DO Work Phone: Comment on above: PERFORMED BY:[facility] [place], [place] [phone] MEDICAL DIRECTORSILVINA MONTESINOS M.D. 27.2\S\27.2 Normal 21.0-31.0 [facility] 250 DO Work Phone: 104\S\104 Normal 98-107 [facility] 250 DO Work Phone: 4.1\S\4.1 Normal 3.5-5.1 [facility] 250 DO Work Phone: 138\S\138 Normal 136-145 [facility] 250 DO Work Phone: 0.80\S\0.80 Normal 0.60-1.20 [facility] 250 DO Work Phone: 22\S\22 Normal 7-25 [facility] 250 DO Work Phone: 134\S\134 above high threshold 70-100 [facility] 250 DO Work Phone: Comment on above: Random Glucose Refer ence Range is dependent on time and content of last meal. Glucose of more than 200 mg/dL in a nonstressed, ambulatory subject supports the diagnosis of Diabetes Mellitus. ADA recommended reference range Potassium [Moles/volume] in Serum or PlasmaOrdered By: Terese Braxton on 01-25-2023 Potassium [Moles/Vol] 4.1 mmol/L 3.5-5.1 [facility] Serum or plasma anion gap de terminationOrdered By: Terese Braxton on 01-25-2023 Anion gap [Moles/Vol] 10.9 mmol/L 6.0-15.0 [facility] Sodium [Moles/volume] in Ser um or PlasmaOrdered By: Terese Braxton on 01-25-2023 Sodium [Moles/Vol] 138 mmol/L 136-145 [facility] Urea nitrogen [Mass/volume] in Serum or PlasmaOrdered By: Terese Braxton on 01-25-2023 Urea nitrogen [Mass/Vol] 22 mg/dL 7-25 [facility] Office Visit (Cardiology)on 01-21-2023 Follow-up visit [...] of breath Comprehensive Metabolic Panel; Status:Active; Requested for:[id number]; Lipid Panel; Status:Active; Requested for:[id number]; Abnormal ECG, Fatigue, Shortness of breath NM [...] we can help. You may also call 0-295-OXXXNOW for free resources and assistance.; Status:Complete; Done: [...] for bariatric surgical options next week with [facility]. She is making effort to quit smoking. She is currently using vape pens with 0 nicotine. Primary MD increased hydrochlorothiazide. Blood pressure is still above target. She says she had a sleep study about a year ago, and was recommended CPAP. She is not using CPAP therapy she uses an [id number] pill for diuresis, it actually does not [...] A1c 10/17 (more content not included)... Normal [employer] Tobacco Screening.on 023 Tobacco use status [facility] b) No -[facility] 250 DO Work Phone: Alanine aminotransferase [En zymatic activity/volume] in Serum or PlasmaOrdered By: Terese Braxton on 01-09-2023 ALT [Catalytic activity/Vol] 14 U/L 7-52 [facility] Aspartate aminotransferase [ Enzymatic activity/volume] in Serum or PlasmaOrdered By: Terese Braxton on 01-09-2023 AST [Catalytic activity/Vol] 14 U/L 13-39 [facility] Cholesterol [Mass/volume] in Serum or PlasmaOrdered By: Terese Braxton on 01-09-2023 Cholesterol [Mass/Vol] 161 mg/dL 140-200 [facility] Comment on above: Chol less than 200 m g/dl low riskChol 201-239 mg/dl borderline riskChol 240 mg/dl and greater high risk Cholesterol in LDL Calc [Mas s/Vol]Ordered By: Terese Braxton on 01-09-2023 Cholesterol in LDL [Mass/Vol] 77 mg/dL 0-100 [facility] Comment on above: LDL ATP III CLASSIFI CATIONLDL less than 100 mg/dL OptimalLDL 100-129 mg/dL Near or above optimalLDL 130-159 mg/dL Borderline highLDL 160-189 mg/dL HighLDL greater than 189 mg/dL Very high Cholesterol in VLDL Calc [Ma ss/Vol]Ordered By: Terese Braxton on 01-09-2023 Cholesterol in VLDL [Mass/Vol] 31 mg/dL [facility] Echocardiogramon 01-09-[address], [address] [place] [address] TRANSTHORACIC ECHOCARDIOGRAM REPORT Patient Name: PAIGE MCCARTY Reading Physician: [id number] Juan Sharp MD Study Date: 01/09/2023 Referring Physician: TERESE BRAXTON MRN/PID: [id number] PCP: Awais Bright MD Accession/Order#: [id number] Department Location: [facility] Date of : 1965 Fellow: Gender: F Nurse: Jayme Odnonell RN Admit Date: Garment Supervisor: Nat Saha RD, T Height: 157.48 cm CC Report to: Weight: 136.53 kg Study Type: Echocardiogram BSA: 2.27 m2 Diagnosis/ICD: R94.31-Abnormal electrocardiogram [ECG] [EKG]; R06.02-Shortness of breath Indication: HTN, Hyperlipidemia, Tobacco Abuse, Morbid Obesity, Clotting Disorder Procedure/CPT: Echo Complete w Full Doppler-[id number] Study Detail: The following Echo studies were [...] 0.9 m/s (0.6-0.9m/s) PV Max P.1 mmHg [id number] Juan Sharp MD Electronically signed on 01/09/2023 at 5:33:40 PM Final Normal [facility] - Chemistry and C hemistry - challengeon 01-09-2023 Cholesterol [Mass/Vol] 161\S\161 Normal 140-200 [facility] [employer] 250 DO Work Phone: Comment on above: Chol less than 200 m g/dl low risk Chol 201-239 mg/dl borderline risk Chol 240 mg/dl and greater high risk Cholesterol in LDL [Mass/Vol] 77\S\77 Normal 0-100 [facility] [employer] 250 DO Work Phone: Comment on above: LDL ATP III CLASSIFI CATION LDL less than 100 mg/dL Optimal LDL 100-129 mg/dL Near or above optimal LDL 130-159 mg/dL Borderline high LDL 160-189 mg/dL High LDL greater than 189 mg/dL Very high Natriuretic peptide B [Mass/ Vol]Ordered By: Terese Braxton on 01-09-2023 Natriuretic peptide B (Bld) [Mass/Vol] 22.0 pg/mL 5-100 [facility] No Panel Informationon 01-09 14\S\14 Normal 7-52 [facility] [employer] Get Appro[employer]-[place] 250 DO Work Phone: 3.0\S\3.0 Normal <5.0 [facility] 250 DO Work Phone: Comment on above: PERFORMED BY:[facility] [place] [place], [place] [phone] MEDICAL DIRECTORSILVINA MONTESINOS M.D. 31\S\31 Normal [facility] 250 DO Work Phone: 156\S\156 above high threshold 0-149 [facility] 250 DO Work Phone: Comment on above: TRIG ATP III CLASSIF ICATION TRIG less than 150 mg/dL Normal TRIG 150-199 mg/dL Borderline high TRIG 200-500 mg/dL High TRIG greater than 500 mg/dL Very high Standard traceable to the Center for Disease Conrtrol and Prevention (CDC) test method. 53\S\53 Normal 35-85 [facility] 250 DO Work Phone: Comment on above: HDL CHOL ATP-III CLA SSIFICATION Cardiovascular Risk HDL > or equal to 60 mg/dL LOW HDL < 40 mg/dL HIGH 22.0\S\22.0 Normal 5-100 [facility] 250 DO Work Phone: Comment on above: PERFORMED BY:[place] [address] [address] [place], [place] [phone] MEDICAL DIRECTORSILVINA MONTESINOS M.D. Serum or plasma high density lipoprotein (HDL) cholesterol measurementOrdered By: Terese Braxton on 01-09-2023 Cholesterol in HDL [Mass/Vol] 53 mg/dL 35-85 [facility] Comment on above: HDL CHOL ATP-III CLA SSIFICATION Cardiovascular RiskHDL > or equal to 60 mg/dL LOWHDL < 40 mg/dL HIGH Serum or plasma total choles terol/high density lipoprotein (HDL) cholesterol mass ratOrdered By: Terese Braxton on 01-09-2023 Cholesterol.total/Chol esterol in HDL [Mass ratio] 3.0 {ratio} <5.0 [facility] Triglyceride [Mass/volume] i n Serum or PlasmaOrdered By: Terese Braxton on 01-09-2023 Triglyceride [Mass/Vol] 156 mg/dL 0-149 [facility] Comment on above: TRIG ATP III [...] we can help. You may also call [phone]-OXHUNOW for free resources and assistance.; Status:Complete; Done: [...] be evaluated in the emergency department at [place] she is on multiple inhalers. She reports [...] shows sinus rhythm at 86 bpm with IN interval of 170 ms QRS duration 96 [...] apparently mayer (more content not included)... Normal [facility] Tobacco Screening.on 023 Adult depression screening assessment No [facility] 250 DO Work Phone: Tobacco use status [facility] a) Yes [facility] 250 DO Work Phone: Tobacco Screening. Yes [facility] 250 DO Work Phone: Albumin [Mass/volume] in Ser um or PlasmaOrdered By: Awais Bright on 10-23-2022 Albumin [Mass/Vol] 3.6 g/dL 3.2-5.5 [facility] Basic Metabolic Panelon 09-28 Calcium [Mass/Vol] 9.6364197 mg/dL Normal 8.2-10 .2 mg/dL [facility] Other CO2 [Moles/Vol] 24.89714785 mmol/L Normal 22.0-3 0.0 mmol/L [facility] Other Creatinine [Mass/Vol] 0.49236638 mg/dL Normal 0. 44-1.03 mg/dL [facility] Other Potassium [Moles/Vol] 4.41746760 mmol/L Normal 3 .5-5.1 mmol/L [facility] Other Basic Metabolic Panel > 60 [facility] [employer] Other Basophils Auto (Bld) [#/Vol] Ordered By: Awais Bright on 10-23-2022 Basophils (Bld) [#/Vol] 0.1 10*3/uL 0.0-0.2 [facility] Basophils/100 WBC Auto (Bld) Ordered By: Awais Bright on 10-23-2022 Basophils/100 WBC (Bld) 0.6 % . [facility] Complete Blood Count Auto Di ffon 10-23-2022 Basophils (Bld) [#/Vol] 0.092672948 10*3/uL Normal 0.0-0.2 10*3/uL [facility] Other Basophils/100 WBC (Bld) 0.600 % . % [facility] Other Eosinophils (Bld) [#/Vol] 0.760486566 10*3/uL Normal 0.0-0.45 10*3/uL [facility] Other Eosinophils/100 WBC (Bld) 1.600 % . % [facility] Other Erythrocyte distribution width (RBC) [Ratio] 13.900 % Normal 11.9-15.3 % [facility] Other Hematocrit (Bld) [Volume fraction] 40.100 % Normal 34.0-46.4 % [facility] Other Hemoglobin (Bld) [Mass/Vol] 13.853012 g/dL Normal 11.8-15.4 g/dL [facility] Other Lymphocytes (Bld) [#/Vol] 2.375295603 10*3/uL Normal 1.00-4.8 10*3/uL [facility] Other Lymphocytes/100 WBC (Bld) 25.400 % . % [facility] Other MCH (RBC) [Entitic mass] 29.2000 pg Normal 24.7-34.3 pg [facility] Other MCV (RBC) [Entitic vol] 87.1000 fL Normal 80-100 fL [facility] Other Monocytes (Bld) [#/Vol] [id number] 10*3/uL Normal 0.0-0.8 10*3/uL [facility] Other Monocytes/100 WBC (Bld) 4.500 % . % [facility] Other Neutrophils (Bld) [#/Vol] 5.709660903 10*3/uL Normal 1.8-7.7 10*3/uL [facility] Other Neutrophils/100 WBC (Bld) 67.900 % . % [facility] Other Platelet mean volume (Bld) [Entitic vol] 9.6000 fL Normal 6.3-10.7 fL [facility] Other WBC (Bld) [#/Vol] [id number] 10*3/uL Normal 3.8 -11.6 10*3/uL [facility] Other Complete Blood Count Auto Diff 8.6 10*3/uL Normal 3.8-11.6 10*3/uL [facility] Other Complete Blood Count Auto Diff 33.5 g/dL Normal 32.0-35.0 g/dL [employer] Other Complete Blood Count Auto Diff 0.1 /100{WBC} Normal 0-0.5 /100{WBC} [facility] [employer] Other Creatinine and Glomerular fi ltration rate.predicted panel (S/P/Bld)Ordered By: Awais Bright on 10-23-2022 Creatinine [Mass/Vol] 0.77 mg/dL 0.44-1.03 [facility] Direct bilirubin measurement Ordered By: Awais Bright on 10-23-2022 Bilirubin.direct [Mass/Vol] 0.1 mg/dL 0.0-0.4 [facility] Eosinophils Auto (Bld) [#/Vo l]Ordered By: Awais Bright on 10-23-2022 Eosinophils (Bld) [#/Vol] 0.1 10*3/uL 0.0-0.45 [facility] Eosinophils/100 WBC Auto (Bl d)Ordered By: Awais Bright on 10-23-2022 Eosinophils/100 WBC (Bld) 1.6 % . [facility] Erythrocyte distribution wid th Auto (RBC) [Ratio]Ordered By: Awais Bright on 10-23-2022 Erythrocyte distribution width (RBC) [Ratio] 13.9 % 11.9-15.3 [facility] Erythrocytes [#/volume] in B lood by Automated countOrdered By: Awais Bright on 10-23-2022 RBC (Bld) [#/Vol] 4.60 10*6/uL 3.60-5.00 [facility] Estimated glomerular filtrat ion rate (GFR) non- AmericanOrdered By: Awais Bright on 10-23-2022 GFR/1.73 sq M.predicted among non-blacks MDRD (S/P/Bld) [Vol rate/Area] > 60 mL/Min [facility] Globulin Calc (S) [Mass/Vol] Ordered By: Awais Bright on 10-23-2022 Globulin (S) [Mass/Vol] 3.2 g/dL [facility] Hematocrit Auto (Bld) [Volum e fraction]Ordered By: Awais Bright on 10-23-2022 Hematocrit (Bld) [Volume fraction] 40.1 % 34.0-46.4 [facility] Hemoglobin [Mass/volume] in BloodOrdered By: Awais Bright on 10-23-2022 Hemoglobin (Bld) [Mass/Vol] 13.4 g/dL 11.8-15.4 [facility] Hepatic Panelon 10-23-2022 Albumin [Mass/Vol] 3.230003 g/dL Normal 3.2-5.5 g/dL [facility] Other ALT [Catalytic activity/Vol] 24 U/L Normal 10-60 U/L [facility] Other Bilirubin [Mass/Vol] 0.4901944 mg/dL Normal 0.3- 1.2 mg/dL [facility] Other Bilirubin.indirect [Mass/Vol] 0.4026947 mg/dL Normal 0.0-0.4 mg/dL [facility] Other Protein [Mass/Vol] 6.535843 g/dL Normal 6.1-7.9 g/dL [facility] Other Hepatic Panel 0.4 mg/dL [facility] Other Hepatic Panel 3.2 g/dL [facility] Other Leukocytes [#/volume] correc margarita for nucleated erythrocytes in Blood by Automated counOrdered By: Awais Bright on 10-23-2022 WBC corrected for nucl RBC Auto (Bld) [#/Vol] 8.6 10*3/uL 3.8-11.6 [facility] Lymphocytes Auto (Bld) [#/Vo l]Ordered By: Awais Bright on 10-23-2022 Lymphocytes (Bld) [#/Vol] 2.2 10*3/uL 1.00-4.8 [facility] Lymphocytes/100 WBC Auto (Bl d)Ordered By: Awais Bright on 10-23-2022 Lymphocytes/100 WBC (Bld) 25.4 % . [facility] MCH Auto (RBC) [Entitic mass ]Ordered By: Awais Bright on 10-23-2022 MCH (RBC) [Entitic mass] 29.2 pg 24.7-34.3 [facility] MCHC Auto (RBC) [Mass/Vol]Or dered By: Awais Bright on 10-23-2022 MCHC (RBC) [Mass/Vol] 33.5 g/dL 32.0-35.0 [facility] MCV Auto (RBC) [Entitic vol] Ordered By: Awais Bright on 10-23-2022 MCV (RBC) [Entitic vol] 87.1 fL 80-100 [facility] Monocytes Auto (Bld) [#/Vol] Ordered By: Awais Bright on 10-23-2022 Monocytes (Bld) [#/Vol] 0.4 10*3/uL 0.0-0.8 [facility] Monocytes/100 WBC Auto (Bld) Ordered By: Awais Bright on 10-23-2022 Monocytes/100 WBC (Bld) 4.5 % . [facility] Neutrophils Auto (Bld) [#/Vo l]Ordered By: Awais Bright on 10-23-2022 Neutrophils (Bld) [#/Vol] 5.8 10*3/uL 1.8-7.7 [facility] Neutrophils/100 WBC Auto (Bl d)Ordered By: Awais Bright on 10-23-2022 Neutrophils/100 WBC (Bld) 67.9 % . [facility] No Panel InformationOrdered By: Awais Bright on 10-23-2022 Estimated GFR () > 60 mL/Min [facility] Comment on above: GFR estimated refere nce range: According to KDOQI guidelines, <60 ml/min/1.73m2 is sufficient to diagnose a patient with chronic kidney disease. Pharmacy Creatinine Clearance (Chem N/A [facility] Nucleated erythrocytes [Pres ence] in Blood by Automated countOrdered By: Awais Bright on 10-23-2022 Nucleated RBC Auto Ql (Bld) 0.1 /100{WBC} 0-0.5 [facility] Platelet mean volume Auto (B ld) [Entitic vol]Ordered By: Awais Bright on 10-23-2022 Platelet mean volume (Bld) [Entitic vol] 9.6 fL 6.3-10.7 [facility] Platelets [#/volume] in Bloo d by Automated countOrdered By: Awais Bright on 10-23-2022 Platelets (Bld) [#/Vol] 260 10*3/uL 150-450 [facility] Protein [Mass/volume] in Ser um or PlasmaOrdered By: Awais Bright on 10-23-2022 Protein [Mass/Vol] 6.8 g/dL 6.1-7.9 [facility] Serum or plasma alanine coelho otransferase measurement without P-5'-P (enzymatic activiOrdered By: Awais Bright on 10-23-2022 ALT No additional P-5'-P [Catalytic activity/Vol] 24 U/L 10-60 [facility] Serum or plasma albumin/glob ulin mass ratioOrdered By: Awais Bright on 10-23-2022 Albumin/Globulin [Mass ratio] 1.1 {ratio} [facility] Serum or plasma alkaline last sphatase measurement (enzymatic activity/volume)Ordered By: Awais Bright on 10-23-2022 ALP [Catalytic activity/Vol] 65 U/L 32-92 [facility] Serum or plasma anion gap de terminationOrdered By: Awais Bright on 10-23-2022 Anion gap [Moles/Vol] 11.7 mmol/L 6.0-15.0 [facility] Serum or plasma aspartate am inotransferase measurement (enzymatic activity/volume)Ordered By: Awais Bright on 10-23-2022 AST [Catalytic activity/Vol] 22 U/L 10-42 [facility] Serum or plasma calcium kurt urement (mass/volume)Ordered By: Awais Bright on 10-23-2022 Calcium [Mass/Vol] 9.6 mg/dL 8.2-10.2 [facility] Serum or plasma chloride ludivina surement (moles/volume)Ordered By: Awais Bright on 10-23-2022 Chloride [Moles/Vol] 104 mmol/L 95-114 [facility] Serum or plasma glucose kurt urement (mass/volume)Ordered By: Awais Bright on 10-23-2022 Glucose [Mass/Vol] 108 mg/dL 70-100 [facility] Comment on above: ADA recommended refe rence rangeRandom Glucose Reference Range is dependent on time and content of last meal. Glucose of more than 200 mg/dL in a nonstressed, ambulatory subject supports the diagnosis of Diabetes Mellitus. Serum or plasma non-glucuron idated bilirubin measurement (mass/volume)Ordered By: Awais Bright on 10-23-2022 Bilirubin.indirect [Mass/Vol] 0.4 mg/dL [facility] Serum or plasma potassium me asurement (moles/volume)Ordered By: Awais Bright on 10-23-2022 Potassium [Moles/Vol] 4.3 mmol/L 3.5-5.1 [facility] Serum or plasma sodium measu rement (moles/volume)Ordered By: Awais Bright on 10-23-2022 Sodium [Moles/Vol] 136 mmol/L 136-146 [facility] Serum or plasma thyroxine (T 4) measurement (mass/volume)Ordered By: Awais Bright on 10-23-2022 T4 [Mass/Vol] 8.37 ug/dL 5.39-11.82 [facility] Serum or plasma total biliru bin measurement (mass/volume)Ordered By: Awais Bright on 10-23-2022 Bilirubin [Mass/Vol] 0.5 mg/dL 0.3-1.2 [facility] Serum or plasma total carbon dioxide measurement (moles/volume)Ordered By: Awais Bright on 10-23-2022 CO2 [Moles/Vol] 24.6 mmol/L 22.0-30.0 [facility] Serum or plasma urea nitroge n measurement (mass/volume)Ordered By: Awais Bright on 10-23-2022 Urea nitrogen [Mass/Vol] 15 mg/dL 9-23 [facility] TSH DL <= 0.005 mIU/L QnOrde red By: Awais Bright on 10-23-2022 TSH Qn 1.91 m[IU]/L 0.45-5.33 [facility] Thyroid Stimulating Hormoneo n 10-23-2022 TSH Qn 1.94288190468 m[IU]/L Normal 0.45-5 .33 u[iU]/mL [facility] Other Thyroxine (T4) Totalon 10-23 Thyroxine (T4) Total 8.37 ug/dL Normal 5.39-11 .82 ug/dL [facility] Other WBC Auto (Bld) [#/Vol]Ordere d By: Awais Bright on 10-23-2022 WBC (Bld) [#/Vol] 8.6 10*3/uL 3.8-11.6 [facility] XR abdomen min 2Von 10-23-20 XR abdomen min 2V [facility] Other XR abdomen min 2V [facility] [employer] Other XR abdomen min 2V [address] [place] [address] [facility] Other XR abdomen [place] 2[place] [address] [facility] Other XR abdomen min 2V XRay Report [facility] Other XR abdomen min 2V Signed [employer] Other XR abdomen min 2V Patient: Paige Mccarty MR#: [id number] [facility] Other XR abdomen min 2V : 1965 Acct:[id number] [facility] Other XR abdomen min 2V Age/Sex: 57 / F ADM Date: 10/23/22 [facility] Other XR abdomen min 2V Loc: [facility] Room: Typ e: [facility] Other XR abdomen min 2V Attending Dr: Awais Bright DO [facility] Other XR abdomen min 2V Copies to: Awais BrightDO [facility] Other XR abdomen min 2V Ordering Provider: Deshawn Bright, [facility] Other XR abdomen min 2V Date of Service: 10/23/22 [facility] Other XR abdomen min 2V XR/XR abdomen min 2V: Abdominal pain [facility] Other XR abdomen min 2V ([id number]) XR/XR chest 2V*: Dyspepsia [facility] Other XR abdomen min 2V Plain film chest2 view [facility] Other XR abdomen min 2V HISTORY:Shortness of breath. [facility] Other XR abdomen min 2V COMPARISON:None No rt [employer] Other XR abdomen min 2V FINDINGS: The cardia c, mediastinal and hilar silhouettes are within normal limits. No acute lung [facility] Other XR abdomen min 2V process, pleural effusion or pneumothorax identified. Bony structures are intact. [facility] Other XR abdomen min 2V XR/XR chest 2V* [facility] Other XR abdomen min 2V IMPRESSION: No acute process. . [facility] Other XR abdomen min 2V 2 views of abdomen [facility] Other XR abdomen min 2V HISTORY: Upper LEFT abdominal pain. [facility] Other XR abdomen min 2V RIGHT upper quadrant surgical clips present. No pneumoperitoneum. Moderate stool throughout the [facility] Other XR abdomen min 2V proximal mid colon. Tubal ligation clips present. No gaseous intestinal distention. Mild lumbar [facility] Other XR abdomen min 2V spondylosis. [facility] Other XR abdomen min 2V IMPRESSION: Nonspeci fic abdomen. A moderate stool. [facility] Other XR abdomen min 2V Impression dictated by: Bishnu Correia M.D.10/23/2022 4:03 PM [facility] Other XR abdomen min 2V Dictation Location: [place] [address] [facility] Other XR abdomen min 2V Transcribed By: PWS 10/23/22 1603 [facility] Other XR abdomen min 2V Dictated By: Bishnu Correia DO 10/23/22 1550 [facility] Other XR abdomen min 2V Signed By: [employer] Other XR abdomen min 2V 10/23/22 1603 [facility] [employer] Other Cholesterol [Mass/volume] in Serum or PlasmaOrdered By: Awais Bright on 10-17-2022 Cholesterol [Mass/Vol] 245 mg/dL 140-200 [facility] Comment on above: Chol less than 200 m g/dl low riskChol 201-239 mg/dl borderline riskChol 240 mg/dl and greater high risk Cholesterol in LDL Calc [Mas s/Vol]Ordered By: Awais Bright on 10-17-2022 Cholesterol in LDL [Mass/Vol] 145 mg/dL 0-100 [facility] Comment on above: LDL ATP III CLASSIFI CATIONLDL less than 100 mg/dL OptimalLDL 100-129 mg/dL Near or above optimalLDL 130-159 mg/dL Borderline highLDL 160-189 mg/dL HighLDL greater than 189 mg/dL Very high Cholesterol in VLDL Calc [Ma ss/Vol]Ordered By: Awais Bright on 10-17-2022 Cholesterol in VLDL [Mass/Vol] 40 mg/dL [facility] Glucose mean value [Mass/vol ume] in Blood Estimated from glycated hemoglobinOrdered By: Awais Bright on 10-17-2022 Average glucose Estimated from glycated hemoglobin (Bld) [Mass/Vol] 134 mg/dL [facility] Hemoglobin A1c percentageOrd ered By: Awais Bright on 10-17-2022 HbA1c (Bld) [Mass fraction] 6.3 % 4.3-5.6 [facility] Comment on above: Increased risk for d iabetes: 5.7 - 6.4diabetes: >6.4glycemic control for adults with diabetes: <7.0 Serum or plasma high density lipoprotein (HDL) cholesterol measurementOrdered By: Awais Bright on 10-17-2022 Cholesterol in HDL [Mass/Vol] 60 mg/dL 35-85 [facility] Comment on above: HDL CHOL ATP-III CLA SSIFICATION Cardiovascular RiskHDL > or equal to 60 mg/dL LOWHDL < 40 mg/dL HIGH Serum or plasma total choles terol/high density lipoprotein (HDL) cholesterol mass ratOrdered By: Awais Bright on 10-17-2022 Cholesterol.total/Chol esterol in HDL [Mass ratio] 4.1 {ratio} <5.0 [facility] Triglyceride [Mass/volume] i n Serum or PlasmaOrdered By: Awais Bright on 10-17-2022 Triglyceride [Mass/Vol] 200 mg/dL 35-149 [facility] Comment on above: TRIG ATP III [...] by: ROBBI CORREIA Date: 2022-09-24 15:28 Normal [facility] Vital Signs Date Time Vital Sign Value Performing Clinician Facility 04-14-2024 13:40-0400 Diastolic blood pressure 67 mm[Hg] [facility] 04-14-2024 13:40-0400 Systolic blood pressure 111 mm[Hg] [facility] 04-14-2024 13:38-0400 Body height 158.75 cm [facility] 04-14-2024 13:38-0400 Body mass index (BMI) [Ratio] 42.2 kg/m2 [facility] 04-14-2024 13:38-0400 Body temperature 98 [degF] [facility] 04-14-2024 13:38-0400 Body weight 106.36 kg [facility] 04-14-2024 13:38-0400 Heart rate 77 /min [facility] 04-14-2024 13:38-0400 Respiratory rate 16 /min [facility] 04-14-2024 13:38-0400 SaO2% (BldA) [Mass fraction] 92 % [facility] 02-10-2024 10:48-0400 Body height 158.1 cm Terese Braxton MD Work Phone: [facility] 02-10-2024 10:48-0400 Body mass index (BMI) [Ratio] 46.45 kg/m2 Terese Braxton MD Work Phone: [facility] 02-10-2024 10:48-0400 Body weight 116.12 kg Terese Braxton MD Work Phone: [facility] 02-10-2024 10:48-0400 Diastolic blood pressure 80 mm[Hg] Terese Braxton MD Work Phone: [facility] 02-10-2024 10:48-0400 Heart rate 80 /min Terese Braxton MD Work Phone: [facility] 02-10-2024 10:48-0400 Systolic blood pressure 128 mm[Hg] Terese Braxton MD Work Phone: [facility] 11-26-2023 08:47-0500 Body height 157.5 cm Yoli Cha PA-C Work Phone: [facility] [employer] 11-26-2023 08:47-0500 Body mass index (BMI) [Ratio] 53.37 kg/m2 Yoli Choudharynga PA-C Work Phone: [facility] [employer] 11-26-2023 08:47-0500 Body weight 132.36 kg Yoli Romoitenga PA-C Work Phone: [facility] [employer] 11-26-2023 08:47-0500 Diastolic blood pressure 72 mm[Hg] Yoli Choudharynga PA-C Work Phone: [facility] [employer] 11-26-2023 08:47-0500 Heart rate 88 /min Yoli Choudharynga PA-C Work Phone: [facility] 11-26-2023 08:47-0500 SaO2% (BldA) [Mass fraction] 96 % Yoli Choudharynga PA-C Work Phone: [facility] [employer] 11-26-2023 08:47-0500 Systolic blood pressure 108 mm[Hg] Yoli Choudharynga PA-C Work Phone: [facility] 11-06-2023 12:41-0500 Body height 157.5 cm [facility] 11-06-2023 12:41-0500 Body mass index (BMI) [Ratio] 57.02 kg/m2 [facility] 11-06-2023 12:41-0500 Body temperature 98.01 [degF] [facility] 1 [facility] [employer] [facility] 11-06-2023 12:41-0500 Body weight 141.4 kg [facility] 11-06-2023 12:41-0500 Diastolic blood pressure 74 mm[Hg] [facility] 11-06-2023 12:41-0500 Heart rate 78 /min [facility] 11-06-2023 12:41-0500 Respiratory rate 18 /min [facility] [employer] [facility] 11-06-2023 12:41-0500 SaO2% (BldA) [Mass fraction] 98 % [facility] [employer] 11-06-2023 12:41-0500 Systolic blood pressure 145 mm[Hg] [facility] [employer] 10-14-2023 09:45-0500 Body height 157.48 cm Awais Oberer Other [facility] Other 10-14-2023 09:45-0500 Body mass index (BMI) [Ratio] 56.05 kg/m2 Awais Oberer Other [facility] Other 10-14-2023 09:45-0500 Body temperature 98.1 [degF] Awais Oberer Other [facility] Other 10-14-2023 09:45-0500 Body weight 139.03 kg Awais Oberer Other [facility] Other 10-14-2023 09:45-0500 Diastolic blood pressure 71 mm[Hg] Awais Oberer Other [facility] Other 10-14-2023 09:45-0500 Respiratory rate 18 /min Awais Oberer Other [facility] Other 10-14-2023 09:45-0500 SaO2% (BldA) [Mass fraction] 94 % Awais Oberer Other [facility] Other 10-14-2023 09:45-0500 Systolic blood pressure 118 mm[Hg] Awais Oberer Other [facility] Other 08-01-2023 11:57-0400 Diastolic blood pressure 72 mm[Hg] Terese Braxton MD Work Phone: [facility] 08-01-2023 11:57-0400 Systolic blood pressure 136 mm[Hg] Terese Braxton MD Work Phone: [facility] 08-01-2023 11:02-0400 Body height 157.5 cm Terese Braxton MD Work Phone: [facility] 08-01-2023 11:02-0400 Body mass index (BMI) [Ratio] 56.33 kg/m2 Terese Braxton MD Work Phone: [facility] 08-01-2023 11:02-0400 Body weight 139.71 kg Terese Braxton MD Work Phone: [facility] 08-01-2023 11:02-0400 Heart rate 70 /min Terese rBaxton MD Work Phone: [facility] 07-15-2023 11:07-0400 Diastolic blood pressure 80 mm[Hg] Awais L Oberer Work Phone: [facility] DO Work Phone: 07-15-2023 11:07-0400 Systolic blood pressure 152 mm[Hg] Awais L Oberer Work Phone: [facility] DO Work Phone: 07-15-2023 10:14-0400 Body height 158.75 cm Awais L Oberer Work Phone: [facility] DO Work Phone: 07-15-2023 10:14-0400 Body mass index (BMI) [Ratio] 54.72 kg/m2 Awais L Oberer Work Phone: [facility] DO Work Phone: 07-15-2023 10:14-0400 Body surface area Derived from formula 2.3 m2 Awais L Oberer Work Phone: [facility] DO Work Phone: 09-18-2023 10:14-0400 Body weight 137.89 kg Awais L Oberer Work Phone: [facility] DO Work Phone: 07-15-2023 10:14-0400 Diastolic blood pressure 102 mm[Hg] Awais L Oberer Work Phone: [facility] DO Work Phone: 07-15-2023 10:14-0400 Heart rate 82 /min Awais L Oberer Work Phone: [facility] DO Work Phone: 07-15-2023 10:14-0400 Systolic blood pressure 160 mm[Hg] Awais L Oberer Work Phone: [facility] DO Work Phone: 05-27-2023 10:30-0400 Body height 157.48 cm Connoronesimo Jaquez Other [facility] Other 05-27-2023 10:30-0400 Body mass index (BMI) [Ratio] 55.63 kg/m2 Holly Jaquez Other [facility] Other 05-27-2023 10:30-0400 Body temperature 97.5 [degF] Holly Jaquez Other [facility] Other 05-27-2023 10:30-0400 Body weight 137.99 kg Holly Jaquez Other [facility] Other 05-27-2023 10:30-0400 Diastolic blood pressure 90 mm[Hg] Holly Jaquez Other [facility] Other 05-27-2023 10:30-0400 Respiratory rate 20 /min Kamal Chaban Other [facility] Other 05-27-2023 10:30-0400 SaO2% (BldA) [Mass fraction] 95 % Holly Jaquez Other [facility] Other 05-27-2023 10:30-0400 Systolic blood pressure 132 mm[Hg] Holly Jaquez Other [facility] Other 04-23-2023 09:15-0400 Body height 157.48 cm Awais Oberer Other [facility] Other 04-23-2023 09:15-0400 Body mass index (BMI) [Ratio] 55.47 kg/m2 Awais Oberer Other [facility] Other 04-23-2023 09:15-0400 Body temperature 98.7 [degF] Awais Oberer Other [facility] Other 04-23-2023 09:15-0400 Body weight 137.58 kg Awais Oberer Other [facility] Other 04-23-2023 09:15-0400 Diastolic blood pressure 69 mm[Hg] Awais Oberer Other [facility] Other 04-23-2023 09:15-0400 Respiratory rate 18 /min Awais Oberer Other [facility] Other 04-23-2023 09:15-0400 SaO2% (BldA) [Mass fraction] 95 % Awais Oberer Other [facility] Other 04-23-2023 09:15-0400 Systolic blood pressure 111 mm[Hg] Awais Oberer Other [facility] [employer] Other 03-28-2023 14:07-0400 Body temperature 97.8 [degF] DO Awais Oberer Work Phone: [facility] 03-28-2023 14:07-0400 Body weight 139.47 kg DO Awais Oberer Work Phone: [facility] 03-28-2023 14:07-0400 Diastolic blood pressure 80 mm[Hg] DO Awais Oberer Work Phone: [facility] 03-28-2023 14:07-0400 Heart rate 16 /min DO Awais Oberer Work Phone: [facility] 03-28-2023 14:07-0400 Respiratory rate 16 /min DO Awais Oberer Work Phone: [facility] 03-28-2023 14:07-0400 SaO2% (BldA) [Mass fraction] 94 % DO Awais Oberer Work Phone: [facility] 03-28-2023 14:07-0400 Systolic blood pressure 133 mm[Hg] DO Awais Oberer Work Phone: [facility] 02-13-2023 12:30-0400 56 1 Awais L Oberer Work Phone: [facility] [place] Work Phone: Comment on above: [id number] 01-21-2023 12:35-0400 Body height 158.12 cm Awais L Oberer Work Phone: [facility] DO Work Phone: 01-21-2023 12:35-0400 Body mass index (BMI) [Ratio] 55.33 kg/m2 Awais L Oberer Work Phone: [facility] DO Work Phone: 01-21-2023 12:35-0400 Body surface area Derived from formula 2.29 m2 Awais L Oberer Work Phone: [facility] DO Work Phone: 01-21-2023 12:35-0400 Body weight 138.35 kg Awais L Oberer Work Phone: [facility] DO Work Phone: 01-21-2023 12:35-0400 Diastolic blood pressure 86 mm[Hg] Awais L Oberer Work Phone: [facility] DO Work Phone: 01-21-2023 12:35-0400 Heart rate 80 /min Awais L Oberer Work Phone: [facility] DO Work Phone: 01-21-2023 12:35-0400 Systolic blood pressure 132 mm[Hg] Awais L Oberer Work Phone: [facility] DO Work Phone: 01-09-2023 14:30-0400 60 1 Awais L Oberer Work Phone: [facility] DO Work Phone: Comment on above: [id number] 11-22-2022 11:47-0500 Body height 158.12 cm Awais L Oberer Work Phone: [facility] DO Work Phone: 11-22-2022 11:47-0500 Body mass index (BMI) [Ratio] 54.61 kg/m2 Awais L Oberer Work Phone: [facility] DO Work Phone: 11-22-2022 11:47-0500 Body surface area Derived from formula 2.28 m2 Awais L Oberer Work Phone: [facility] DO Work Phone: 11-22-2022 11:47-0500 Body weight 136.53 kg Awais L Oberer Work Phone: [facility] DO Work Phone: 11-22-2022 11:47-0500 Diastolic blood pressure 82 mm[Hg] Awais L Oberer Work Phone: [facility] DO Work Phone: 11-22-2022 11:47-0500 Diastolic blood pressure 72 mm[Hg] Awais L Oberer Work Phone: [facility] DO Work Phone: 11-22-2022 11:47-0500 Heart rate 86 /min Awais L Oberer Work Phone: [facility] DO Work Phone: 11-22-2022 11:47-0500 Systolic blood pressure 136 mm[Hg] Awais L Oberer Work Phone: [facility] DO Work Phone: 11-22-2022 11:47-0500 Systolic blood pressure 132 mm[Hg] Awais L Oberer Work Phone: [facility] DO Work Phone: 10-23-2022 14:15-0500 Body height 157.48 cm Awais Oberer Other [facility] [employer] Other 10-23-2022 14:15-0500 Body mass index (BMI) [Ratio] 56.78 kg/m2 Awais Oberer Other [facility] [employer] Other 10-23-2022 14:15-0500 Body temperature 98.2 [degF] Awais Oberer Other [facility] Other 10-23-2022 14:15-0500 Body weight 140.84 kg Awais Oberer Other [facility] Other 10-23-2022 14:15-0500 Diastolic blood pressure 76 mm[Hg] Awais Oberer Other [facility] Other 10-23-2022 14:15-0500 Respiratory rate 18 /min Awais Oberer Other [facility] Other 10-23-2022 14:15-0500 SaO2% (BldA) [Mass fraction] 97 % Awais Oberer Other [facility] Other 10-23-2022 14:15-0500 Systolic blood pressure 122 mm[Hg] Awais Oberer Other [facility] Other 01-18-2022 16:30-0400 Body height 157.48 cm Awais Oberer Other [facility] Other 01-18-2022 16:30-0400 Body mass index (BMI) [Ratio] 49.07 kg/m2 Awais Oberer Other [facility] Other 01-18-2022 16:30-0400 Body temperature 98.6 [degF] Awais Oberer Other [facility] Other 01-18-2022 16:30-0400 Body weight 121.7 kg Awais Oberer Other [facility] Other 01-18-2022 16:30-0400 Diastolic blood pressure 82 mm[Hg] Awais Oberer Other [facility] Other 01-18-2022 16:30-0400 Respiratory rate 18 /min Awais Oberer Other [facility] Other 01-18-2022 16:30-0400 SaO2% (BldA) [Mass fraction] 96 % Awais Oberer Other [facility] Other 01-18-2022 16:30-0400 Systolic blood pressure 111 mm[Hg] Awais Oberer Other [facility] Other 05-06-2018 14:11-0400 Body height 158.75 cm DO Awais Oberer Work Phone: [facility] Encounters Encounter Date Encounter Type Care Provider Facility Start: 04-16-2024 End: 04-16-[address] [facility] Start: 04-14-2024 End: 04-14-2024 ambulatory Awais Oberer [facility] Work Phone: Start: 04-14-2024 End: 04-14-2024 Departed Referred DO Awais Oberer Work Phone: [facility] [place] Work Phone: Start: 04-14-2024 End: 04-14-2024 ambulatory [facility] Work Phone: Start: 04-14-2024 End: 04-14-2024 Patient encounter procedure [facility] [place] Work Phone: Start: 04-13-2024 Non-patient / [facility]-visit [facility] Work Phone: Start: 04-07-2024 Non-patient / Non-visit [facility] Work Phone: Start: 03-03-2024 Non-patient / Non-visit [facility] Physician [facility] Work Phone: Start: 02-18-2024 End: 02-18-2024 ambulatory LEONIDES FULLER [facility] Start: 02-10-2024 End: 02-10-2024 ambulatory [facility] Start: 02-10-2024 End: 02-10-2024 Office outpatient visit 25 minutes Terese Braxton MD Work Phone: [facility] Comment on above: S/P gastric bypass ( Primary Dx); Hypertensive heart disease without CHF; Hyperlipemia, mixed; Current every day smoker; Hypokalemia; Medication course changed; BMI 45.0-49.9, adult (Multi) Start: 02-05-2024 Non-patient / Non-visit [facility] Work Phone: Start: 01-15-2024 Non-patient / Non-visit [facility] Physician [facility] Work Phone: Start: 12-23-2023 End: 12-23-2023 ambulatory JUANA BUSH [facility] Start: 12-16-2023 Telephone encounter Jaz corral RN Work Phone: [facility] Start: 11-26-2023 End: 11-26-2023 Postop follow up visit related to original px Yoli Cha PA-C Work Phone: [facility] Comment on above: History 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-en-Y gastric bypass (Primary Dx); Postsurgical malabsorption; Malnutrition following gastrointestinal surgery; Vitamin D deficiency; Post-operative nausea and vomiting Start: 11-26-2023 End: 11-26-2023 ambulatory YOLI Freed [facility] Start: 11-26-2023 Encounter for other preprocedural examination [facility] Start: 11-21-2023 End: 11-21-2023 Evaluation and management of inpatient JARROD ROMERO [facility] Start: 11-20-2023 End: 11-21-2023 Evaluation and management of inpatient LÓPEZ Freed [facility] Start: 11-19-2023 ambulatory Abena Henao Facility:[facility] Start: 11-13-2023 End: 11-13-2023 ambulatory [facility]ÓPEZ Freed [facility] Start: 11-13-2023 End: 11-13-2023 ambulatory AWAIS SEGUNDOR [facility] Start: 11-06-2023 End: 11-06-2023 ambulatory LÓPEZ KIDD [facility] Start: 11-06-2023 End: 11-06-2023 Patient encounter procedure Elise Alejandro Provider 1 Zaheer Olivares [facility] Comment on above: Morbid obesity ([facility]); Hypertension, unspecified type Start: 10-14-2023 End: 10-14-2023 ambulatory Awais Facundobennie Other [facility] [employer] Other Start: 10-14-2023 Office outpatient vi sit 40 minutes Awais Segundor [facility] [place] Start: 10-14-2023 Telephone encounter Awais Facundomalissar [facility] Start: 08-01-2023 End: 08-01-2023 Office outpatient visit 15 minutes Terese Braxton MD Work Phone: [facility] Comment on above: Hypertensive heart d isease without CHF (Primary Dx); Encounter to discuss test results; SOB (shortness of breath); Hyperlipemia, mixed; Pre-diabetes; BMI 50.0-59.9, adult (CMS/HCC); PVC (premature ventricular contraction); Current every day smoker Start: 07-25-2023 Chart Update Awais Bright Work Phone: [facility] 250 DO Work Phone: Start: 07-25-2023 End: 07-25-2023 Patient encounter procedure DO Awais Facundobennie Work Phone: [facility]-Lab [facility] Start: 07-25-2023 End: 07-25-2023 ambulatory DO Awais Oberer Work Phone: [facility] Work Phone: Start: 07-23-2023 ambulatory Tereseaj Braxton Facility:1 [id number] Start: 07-15-2023 Office outpatient vi sit 25 minutes Awais L Oberer Work Phone: [facility] 250 DO Work Phone: Start: 07-15-2023 Patient encounter procedure Ka rl L Oberer Work Phone: [facility] 250 DO Work Phone: Start: 07-15-2023 ambulatory Terese Braxton Facility:1 [id number] Start: 05-27-2023 End: 05-27-2023 ambulatory Kamal Chaban Other [facility] Other Start: 05-27-2023 Office outpatient ne w 45 minutes Kamal Chaban [facility] Start: 05-27-2023 Telephone encounter Kamal Chaban [facility] Start: 05-13-2023 End: 05-13-2023 ambulatory Awais Oberer Other [facility] [employer] Other Start: 05-13-2023 Telephone encounter Awais Oberer [facility] Start: 04-23-2023 Office outpatient vi sit 25 minutes Awais Oberer [facility] Start: 04-23-2023 Telephone encounter Awais Oberer [facility] Start: 04-23-2023 End: 04-23-2023 Patient encounter procedure DO Awais Oberer Work Phone: [facility]-X-Ray [facility] Start: 04-23-2023 End: 04-23-2023 ambulatory DO Awais Oberer Work Phone: [facility] Work Phone: Start: 04-15-2023 End: 04-15-2023 ambulatory DO Awais Oberer Work Phone: [facility] Work Phone: Start: 04-15-2023 End: 04-15-2023 Patient encounter procedure DO Awais Oberer Work Phone: [facility] [place] Work Phone: Start: 03-28-2023 End: 03-28-2023 ambulatory DO Awais Oberer Work Phone: [facility] Work Phone: Start: 03-28-2023 End: 03-28-2023 Registered Recurring DO Awais Oberer Work Phone: [facility] Work Phone: Start: 03-11-2023 End: 03-11-2023 ambulatory Acthy Alexeijohn Other [facility] [employer] Other Start: 03-11-2023 Telephone encounter Cathy Covarrubias [facility] Start: 02-14-2023 Chart Update Awais L Oberer Work Phone: [facility] 250 DO Work Phone: Start: 02-14-[address] Terese Velasquez ty:[id number] Start: 02-13-[address] Terese Velasquez ty:[id number] Start: 02-13-2023 Patient encounter procedure Ka rl L Oberer Work Phone: [facility] [address] [place] Work Phone: Start: 01-26-2023 Chart Update Awais L Oberer Work Phone: [facility] 250 DO Work Phone: Start: 01-25-2023 End: 01-25-2023 ambulatory DO Awais Oberer Work Phone: [facility] Work Phone: Start: 01-25-2023 End: 01-25-2023 Patient encounter procedure DO Awais Oberer Work Phone: [facility]-Lab [facility] Start: 01-21-2023 ambulatory Terese Braxton Facility:1 [id number] Start: 01-12-2023 Chart Update Awais L Oberer Work Phone: [facility] 250 DO Work Phone: Start: 01-09-[address] [id number] Start: 01-09-2023 End: 01-09-2023 ambulatory DO Awais Oberer Work Phone: [facility] Work Phone: Start: 01-09-2023 End: 01-09-2023 Patient encounter procedure DO Awais Oberer Work Phone: [facility]-Lab [facility] Start: 12-07-2022 End: 12-07-2022 ambulatory DO Awais Oberer Work Phone: [facility] Work Phone: Start: 12-07-2022 End: 12-07-2022 Patient encounter procedure DO Awais Oberer Work Phone: [facility]-Respiratory Therapy Work Phone: Start: 11-23-2022 Telephone encounter Awais L Obe rer Work Phone: [facility] 250 DO Work Phone: Start: 11-22-2022 Office consultation new/estab patient 60 min Awais L Oberer Work Phone: [facility] Work Phone: Start: 11-22-2022 ambulatory Terese Braxton Facility:1 [id number] Start: 10-25-2022 End: 10-25-2022 ambulatory Awais Oberer Other [facility] Other Start: 10-25-2022 Telephone encounter Awais Oberer [facility] Start: 10-23-2022 End: 10-23-2022 Patient encounter procedure DO Awais Oberer Work Phone: [facility]-X-Ray [facility] Start: 10-23-2022 End: 10-23-2022 ambulatory DO Awais Oberer Work Phone: [facility] Work Phone: Start: 10-23-2022 Office outpatient vi sit 40 minutes Awais Oberer [facility] Start: 10-17-2022 End: 10-17-2022 ambulatory DO Awais Oberer Work Phone: [facility] Work Phone: Start: 10-17-2022 End: 10-17-2022 Patient encounter procedure DO Awais Oberer Work Phone: [facility]-Lab [facility] Start: 09-24-2022 End: 09-24-[address] DOCTOR CATALAN Facility: Start: 09-07-2022 End: 09-07-2022 ambulatory Awais Oberer Other [facility] Other Start: 09-07-2022 Telephone encounter Awais Oberer [facility] Start: 02-08-2022 End: 02-08-2022 ambulatory Awais Oberer Other [facility] Other Start: 02-08-2022 Telephone encounter Awais Oberer [facility] Start: 01-29-2022 End: 01-29-2022 ambulatory Awais Oberer Other [facility] Other Start: 01-29-2022 Telephone encounter Awais Oberer [facility] Start: 01-18-2022 End: 01-18-2022 ambulatory Awais Oberer Other [facility] [employer] Other Start: 01-18-2022 Office outpatient vi sit 40 minutes Awais Oberer [facility] [place] Procedures Date Procedure Procedure Detail Performing Clinician Start: 03-03-2024 Bacteria identified in Urine by Culture Start: 02-18-2024 Follow-up visit Follow-up LEONIDES FULLER Start: 02-10-2024 FOLLOW UP IN CARDIOLOGY TERESEROSALIO BRAXTON Start: 11-26-2023 History of gastrointestinal tract bypass History of Da-en-Y gastric bypass Yoli MELENDREZSapho Work Phone: Start: 11-20-2023 Adult depression scr eening assessment Yoli MELENDREZCoinplugMarycarmen Work Phone: Start: 11-06-2023 Comprehensive metabo lic [...] Work Phone: Ligation of fallopian tube K aga Loredoerer Work Phone: Operation on bladder Awais Bright Work Phone: NEGATED: Highlighted row has not occurred! Total colonoscopy Awais Bright Work Phone: Plan of Treatment Date Care Activity Detail Author Start: 2027 RSV patient s and/or patients aged 60+ years (1 - 1-dose 60+ series) RSV patients and/or patients aged 60+ years (1 - 1-dose 60+ series) [facility] Start: 12-23-2025 DTaP,Tdap and Td Vaccines (3 - Td or Tdap) DTaP,Tdap and Td Vaccines (3 - Td or Tdap) [facility] Start: 12-23-2025 DTaP/Tdap/Td Vaccine s (3 - Td or Tdap) DTaP/Tdap/Td Vaccines (3 - Td or Tdap) [facility] Start: 11-26-2024 Adult BMI Follow Up Plan Adult BMI F ollow Up Plan [facility] Start: 11-26-2024 Adult BMI Screening Adult BMI Screen ing [facility] Start: 11-26-2024 Tobacco Screening Tobacco Screening [facility] Start: 11-20-2024 Depression Screening Depression Scre ening [facility] Start: 11-06-2024 Adult BMI Screening Adult BMI Screen ing [facility] Start: 11-06-2024 Tobacco Screening Tobacco Screening [facility] Start: 08-13-2024 End: 08-13-2024 Patient encounter procedure 08/13/2024 10:30 AM EDT Office Visit [facility] [address] [facility] [address] [place] [address] Terese Braxton MD [address] [place] [address] [address] [place] [address] [facility] Start: 06-28-2024 Influenza vaccination Influenz a Vaccine (Season Ended) [facility] Start: 04-14-2024 Bacteria identified in Urine by Culture [facility] Start: 02-26-2024 Adult BMI Follow Up Plan Adult BMI F ollow Up Plan [employer] [facility] Start: 02-18-2024 End: 02-18-2024 Patient encounter procedure [facility] Start: 02-17-2024 End: 02-09-2025 Basic metabolic 2000 panel - Serum or Plasma Basic Metabolic Panel Lab Routine Hypertensive heart disease without CHF Hypokalemia Medication course changed Expected: 02/17/2024 (Approximate), Expires: 02/09/2025 [facility] Service Area Work Phone: Comment on above: Expected: 02/17/2024 (Approximate), Expires: 02/09/2025 Start: 02-10-2024 End: 02-10-2024 Patient encounter procedure 02/10/2024 10:30 AM EDT Office Visit [facility] [address] [facility] [address] [place] [address] Terese Braxton MD [address] [facility] [address] [place], [place] [phone] 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 History of Da-en-Y gastric bypass Expected: 02/03/2024 (Approximate), Expires: 11/22/2024 [facility] Work Phone: Comment on above: Expected: 02/03/2024 (Approximate), Expires: 11/22/2024 Start: 02-03-2024 End: 11-22-2024 Cyanocobalamin vitamin b-12 Vitamin B12 Lab Routine 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 History of Da-en-Y gastric bypass Expected: 02/03/2024 (Approximate), Ex[facility]: [facility] Comment on above: Expected: 02/03/2024 (Approximate), Expires: 11/22/2024 Start: 02-03-2024 End: 11-22-2024 Folate Folate Lab Routine 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 History of Da-en-Y gastric bypass Expected: 02/03/2024 (Approximate), Expires: 11/22/2024 [facility] Comment on above: Expected: 02/03/2024 (Approximate), Expires: 11/22/2024 Start: 02-03-2024 End: 11-22-2024 Iron [Mass/volume] in Serum or Plasma Iron Lab Routine 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 History of Da-en-Y gastric bypass Expected: 02/03/2024 (Approximate), Expires: 11/22/2024 [facility] Comment on above: Expected: 02/03/2024 (Approximate), Expires: 11/22/2024 Start: 02-03-2024 End: 11-22-2024 Liver panel Liver panel Lab Routine 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 History of Da-en-Y gastric bypass Expected: 02/03/2024 (Approximate), Expires: 11/22/2024 [facility] Comment on above: Expected: 02/03/2024 (Approximate), Expires: 11/22/2024 Start: 02-03-2024 End: 11-22-2024 Thiamin Vitamin B1, whole blood Thiamin Vitamin B1, whole blood Lab Routine 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 History of Da-en-Y gastric bypass Expected: 02/03/2024 (Approximate), Expires: 11/22/2024 [facility] Comment on above: Expected: 02/03/2024 (Approximate), Expires: 11/22/2024 Start: 02-03-2024 End: 11-22-2024 Vitamin D 25 hydroxy Vitamin D 25 hydroxy Lab Routine 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 History of Da-en-Y gastric bypass Expected: 02/03/2024 (Approximate), Expires: 11/22/2024 [facility] Comment on above: Expected: 02/03/2024 (Approximate), Expires: 11/22/2024 Start: 12-23-2023 End: 12-23-2023 ambulatory 12/23/2023 1:00 PM EST Support Visit [facility] [address] [place] [phone] [facility] Start: 11-26-2023 End: 11-26-2023 Patient encounter procedure 11/26/2023 8:30 AM EST Office Visit [facility] General Surgery-Bariatric [address] [place] [phone] Yoli Cha PA-C [address] [facility] [place], [place] [phone] [facility] General Surgery-Bariatric Start: 11-26-2023 End: 11-26-2023 ambulatory 11/26/2023 8:00 AM EST Support Visit [facility] [address] [place] [phone] [facility] Start: 11-20-2023 End: 11-20-2023 Admission to same day surgery center 11/20/2023 9:30 AM EST - 11/20/2023 11:30 AM EST Surgery [address] [phone] López Kidd MD [address] [place] [address] [facility] DA EN Y [31420 (CPT )] [facility] Surgery Comment on above: DAVINCI BYPASS GASTR IC DA EN Y [90035 (CPT )] Start: 11-20-2023 End: 11-20-2023 Laps gstr rstcv px w/byp da-en-y limb <150 cm [facility] DA EN Y MORBID OBESITY, HYPERTENSION 11/20/2023 9:30 AM EST [facility] Start: 11-20-2023 Subsequent hospital visit by physician 11/20/2023 9:30 AM EST Hospital Encounter [facility] Surgery [address] [place] [phone] López Kidd MD [address] [facility] [address] [place] [address] [facility] - [facility] Start: 11-13-2023 End: 11-13-2023 Admission to same day surgery center 11/13/2023 8:00 AM EST Support Visit [facility] General Surgery-Bariatric [address] [place] [phone] [facility] Surgery-Bariatric Start: 08-01-2023 End: 08-01-2024 Comprehensive metabolic 2000 panel - Serum or Plasma Comprehensive metabolic panel Lab Routine Hypertensive heart disease without CHF SOB (shortness of breath) Hyperlipemia, mixed Pre-diabetes BMI 50.0-59.9, adult (CMS/HCC) PVC (premature ventricular contraction) Current every day smoker Expected: 08/01/2023 (Approximate), Expires: 08/01/2024 [facility] Service Area Work Phone: Comment on above: Expected: 08/01/2023 (Approximate), Expires: 08/01/2024 Start: 08-01-2023 End: 08-01-2024 Hemoglobin A1c/Hemoglobin.total in Blood Hemoglobin A1C Lab Routine Hypertensive heart disease without CHF SOB (shortness of breath) Hyperlipemia, mixed Pre-diabetes BMI 50.0-59.9, adult (CMS/HCC) PVC (premature ventricular contraction) Current every day smoker Expected: 08/01/2023 (Approximate), Expires: 08/01/2024 [facility] Work Phone: Comment on above: Expected: 08/01/2023 (Approximate), Expires: 08/01/2024 Start: 08-01-2023 End: 08-01-2024 Lipid 1996 panel - Serum or Plasma Lipid Panel Lab Routine Hypertensive heart disease without CHF SOB (shortness of breath) Hyperlipemia, mixed Pre-diabetes BMI 50.0-59.9, adult (CMS/HCC) PVC (premature ventricular contraction) Current every day smoker Expected: 08/01/2023 (Approximate), Expires: 08/01/2024 [facility] Work Phone: Comment on above: Expected: 08/01/2023 (Approximate), Expires: 08/01/2024 Start: 07-23-2023 HOLTER 48, Provider: [employer] 1,[id number], Status: Pen, Time: 10:00 AM HOLTER 48, Provider: [employer] ANALY[employer] 1,[id number], Status: Pen, Time: 10:00 AM -[facility] 250 DO Work Phone: Start: 07-15-2023 FUV, Provider: Terese Braxton, Status: Pen, Time: 10:30 AM FUV, Provider: Terese Braxton, Status: Pen, Time: 10:30 AM -[facility] 250 DO Work Phone: Start: 06-28-2023 COVID-19 Vaccine ( season) COVID-19 Vaccine ( season) [facility] Start: 06-28-2023 Influenza vaccination [facility] Start: 02-14-2023 REST ONLY, Provider: MELVINA HHVI NUCLEAR 01,[id number], Status: Pen, Time: 12:30 PM REST ONLY, Provider: MELVINA HHVI NUCLEAR 01,[id number], Status: Pen, Time: 12:30 PM -[facility] 250 DO Work Phone: Start: 02-13-2023 STRESSNUC2, Provider : MELVINA HHVI NUCLEAR 01,[id number], Status: Pen, Time: 12:30 PM STRESSNUC2, Provider: MELVINA HHVI NUCLEAR 01,[id number], Status: Pen, Time: 12:30 PM MP-[facility] 250 DO Work Phone: Start: 01-21-2023 FUV, Provider: Terese Braxton, Status: Pen, Time: 12:30 PM FUV, Provider: Terese Braxton, Status: Pen, Time: 12:30 PM -[facility] 250 DO Work Phone: Start: 01-09-2023 ECHO, Provider: AME GABRIEL HHVI ULTRASOUND 01,[id number], Status: Pen, Time: 2:30 PM ECHO, Provider: MELVINA HHVI ULTRASOUND 01,[id number], Status: Pen, Time: 2:30 PM -[facility] 250 DO Work Phone: Start: 2017 Administration of varicella zoster vaccine Zoster (Shingles) Vaccine (1 of 2) [facility] Start: 2017 Zoster Vaccines (1 of 2) Zoster Vacc ken (1 of 2) [facility] Start: 01-20-2016 Hepatitis B Vaccines (2 of 3 - 19+ 3-dose series) Hepatitis B Vaccines (2 of 3 - 19+ 3-dose series) [facility] Start: 2007 Screening for malign ant neoplasm of breast Mammogram [facility] Start: 1988 Screening for malign ant neoplasm of cervix [facility] Start: 1985 Diabetes mellitus screening Diabetes Screening [facility] Start: 1985 Hepatitis C screening Hepatitis C Sc reening [facility] Start: 1979 Depression Screening Depression Scre ening [facility] Start: 1973 Pneumococcal Vaccine : Pediatrics (0 to 5 Years) and At-Risk Patients (6 to 64 Years) (1 - PCV) Pneumococcal Vaccine: Pediatrics (0 to 5 Years) and At-Risk Patients (6 to 64 Years) (1 - PCV) [facility] Start: 1973 Pneumococcal Vaccine : Pediatrics (0 to 5 Years) and At-Risk Patients (6 to 64 Years) (1 of 2 - PCV) Pneumococcal Vaccine: Pediatrics (0 to 5 Years) and At-Risk Patients (6 to 64 Years) (1 of 2 - PCV) [facility] Start: 1968 MMR Vaccines (1 of 1 - Standard series) MMR Vaccines (1 of 1 - Standard series) [facility] Start: 1967 COVID-19 Vaccine (#1) COVID-19 Vacci ne (#1) [facility] Start: 1967 HIV screening HIV Screening [facility] Start: 1967 Lipid panel Lipid Panel [facility] Start: 1967 Screening for malign ant neoplasm of colon [facility] Start: 1967 Yearly Adult Physical Yearly Adult P hysical [facility] Thiamine [Mass/volum e] in Blood Thiamin Vitamin B1, whole blood Lab Routine Morbid obesity (CMS-HCC) Hypertension, unspecified type 11/06/2023 1:20 PM EST [facility] Work Phone: Thiamine [Moles/volu me] in Blood [facility] Immunizations Immunization Date Immunization Notes Care Provider Fa patrick 12-23-2015 hepatitis B vaccine, adult dosage Awais Oberer Other [facility] Other 12-23-2015 influenza, seasonal, injectable Awais L Oberer Work Phone: [facility] 250 DO Work Phone: 12-23-2015 tetanus toxoid, reduced diphtheria toxoid, and acellular pertussis vaccine, adsorbed [facility] Work Phone: 12-23-2015 influenza virus vaccine, unspecified formulation Terese Braxton MD Work Phone: [facility] Work Phone: 06-23-2014 tetanus toxoid, reduced diphtheria toxoid, and acellular pertussis vaccine, adsorbed Awais Oberer Other [facility] Other 06-25-1994 influenza, seasonal, injectable Awais Oberer Other [facility] Other NEGATED: Highlighted row has not occurred!01-18-2022 influenza, seasonal, injectable Awais Oberer Other [facility] Other NEGATED: Highlighted row has not occurred!12-30-2020 influenza, seasonal, injectable Patient Objection Awais Oberer Other [facility] Other NEGATED: Highlighted row has not occurred!09-20-2020 influenza, seasonal, injectable Patient Objection Awais Oberer Other [facility] Other NEGATED: Highlighted row has not occurred!08-06-2019 influenza, seasonal, injectable Patient Objection Awais Oberer Other [facility] Other Payers Date Payer Category Payer Self-pay [id number] 2023 Medicaid [employer] HMO [id number] 2023-Present [phone] [address] [place] [address] [id number] 2021 Unknown 2021 Medicaid [id number] 1965 Unknown [id number] 2.16.840.1.336740.3.579.2.593 1965 Unknown [id number] 2.16.840.1.480039.3.579.2.1067 1967 Unknown [id number] 2.16.840.1.511746.3.579.2.1067 1967 Unknown [id number] 2.16.840.1.979505.3.579.2.1067 1967 Unknown [id number] 2.16.840.1.534433.3.579.2.1067 1967 Unknown [id number] 2.16.840.1.459063.3.579.2.356 1967 Unknown [id number] 2.16.840.1.396512.3.579.2.356 1967 Unknown [id number] 2.16.840.1.385559.3.579.2. 1967 Unknown [id number] 2.16.840.1.587017.3.579.2.356 1967 Unknown [id number] 2.16840.1.686172.3.579.2.1285 1967 Unknown [id number] 2.16.840.1.393221.3.579.2.1285 1967 Unknown [id number] 2.840.1.768633.3.579.2.1285 1967 Unknown [id number] 2.840.1.507894.3.579.2.1285 1967 Unknown [id number] 2.840.1.070956.3.579.2.1285 1967 Unknown [id number] 2.840.1.632981.3.579.2.1285 1967 Unknown [id number] 2.840.1.639746.3.579.2.1285 1967 Unknown [id number] 2.840.1.487326.3.579.2.1285 1967 Unknown [id number] 2.840.1.887951.3.579.2.1285 1967 Unknown [id number] 2.840.1.169030.3.579.2.1285 1967 Unknown [id number] 2.840.1.958121.3.579.2.1285 1967 Unknown [id number] 2.16840.1.815102.3.579.2.1244 1959 Unknown [id number] 2.16840.1.236179.19 Unknown [id number] 2.16.840.1.870502.3.579.2.531 Unknown [id number] 2.16.840.1.922021.3.579.2.531 Unknown [id number] 2.16.840.1.978996.3.579.2.531 Social History Date Type Detail Facility Unknown if ever smoked [facility] Other Start: 08-01-2023 End: 02-10-2024 Sex Assigned At [facility] Other Start: 01-30-2021 End: 01-30-2021 Tobacco smoking status AKIS Smoker (finding) [facility] Start: 1965 Sex Assigned At Female [facility] Start: 08-01-2023 End: 02-10-2024 No illicit drug use No illicit drug use [facility] 250 DO Work Phone: Comment on above: 1 PPD; 1-5 CIGGS DAILY; Start: 08-01-2023 Tobacco smoking status NHIS Smokes tobacco daily [facility] Work Phone: End: 10-28-2022 History of tobacco use Cigarette Smoker [facility] Work Phone: Start: 08-01-2023 Tobacco use and exposure Former smokeless tobacco user [facility] Work Phone: Start: 08-01-2023 End: 11-06-2023 Alcohol intake Current drinker of alcohol (finding) [facility] Work Phone: Start: 08-01-2023 Tobacco Comment vape [facility] Work Phone: Start: 02-07-2023 End: 08-01-2023 Alcohol Comment social [facility] Work Phone: Start: 1965 [facility]igned [facility] Work [facility]: Start: 07-22-2023 End: 02-10-2024 Exposure to SARS-CoV-2 (event) Not sure [facility] Start: 11-06-2023 Tobacco smoking status NHIS Ex-smoker [facility] Start: 11-06-2023 Tobacco use and exposure Smokeless tobacco non-user [facility] Housing Instability Unknown [facility] Start: 11-26-2023 End: 02-10-2024 Alcohol intake Ex-drinker (finding) [facility] How often to you hav e a drink containing alcohol? Monthly or less [facility] How many standard drinks containing alcohol do you have on a typical day? 1 or 2 [facility] How often do you hav e 6 or more drinks on 1 occasion? Never [facility] Start: 02-10-2024 Gender identity Identifies as female gender (finding) [facility] Work Phone: Start: 02-10-2024 Sexual orientation Heterosexual (fin ding) [facility] Work Phone: NEGATED: Highlighted row [facility] Clinical Notes 10-28-2008 to 02-10-2024 Terese Braxton [...] redirect to the Timeline version of the REVFS SmartLink. Wt Readings from Last 3 Encounters: [...] oral, Daily, Do not crush or chew. DLB606-insxcle fumarate-FA () 28-800 mg-mcg tablet rosuvastatin (CRESTOR) [...] Scribe Attestation By signing my name below, I, Kristyn OLSON , Anthonyibe attest that this documentation has been prepared under the direction and in the presence of Terese Braxton MD. documented in this encounter [facility] Work Phone: 02-10-2024 Instructions Melquiades Ahmadi [...] of your visit. documented in this encounter [facility] Work Phone: 12-16-2023 Miscellaneous Notes Patient needed new RX for vitamins due to having surgery 10/2023. Patient states insurance will pay for vitamins now that she has had surgery. New RX entered. documented in this encounter [facility] 12-16-2023 Telephone encounter Note Patient needed new RX for vitamins due to having surgery 10/2023. Patient states insurance will pay for vitamins now that she has had surgery. [facility] History of Present illness Narrative Summary: One week s/p [place]STO BERRY Dr. Fourman Images from the original note were not included. [facility] GENERAL SURGERY-[facility]ATRIC [address] [place] [id number] Subjective Patient ID: Paige Mccarty is a [...] Weight and Comorbid Conditions: 1. 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) Depression LIMON (dyspnea on exertion) no cp Fibromyalgia, primary GERD (gastroesophageal reflux disease) Heart flutter, ventricular (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 The [place] [employer] recommends a Vitamin D [...] developed and its performance characteristics determined by [facility]'s [facility] Pathology and Laboratory Medicine Malcolm ([facility]). It has not been cleared or approved by the FDA. [facility] is regulated under CLIA as qualified to perform high-complexity testing. This test is used for clinical purposes. It should not be regarded as investigational or for research. Test Performed By: [place] [address] Laborer Driver: Alfredo Chu III, M.D. CLIA #[id number]^ Vitals and Bariatric Vitals: Vitals: 11/26/23 0847 [...] Check blood pressure at home and contact matte cutter or PCP regarding dosing of lisinopril. Labs reviewed with patient. Vitamin D deficiency - supplement and recheck in 3 months Lifelong avoidance of all NSAIDs and tobacco products to reduce risk of anastomotic ulcer formation. Continue PNV or MVT, calcium and vitamin B12 for life Follow up with chemic mangler at 6 weeks postop Follow up labs at 3 months, draw labs one week before appointment Follow up with FIRE FIGHTING EQUIPMENT SPECIALIST/PA at 3 months Yoli Cha PA-C 11/26/23 1101 documented in this encounter [facility] 11-26-2023 Instructions Yoli Cha PA-C - 11/26/2023 [...] daily and anytime you feel dizzy. Contact matte cutter or PCP regarding dosing of blood pressure medication. Continue PNV or MVT, calcium and vitamin B12 for life Follow up with chemic mangler at 6 weeks postop Follow up labs at 3 months, draw labs one week before appointment Follow up with FIRE FIGHTING EQUIPMENT SPECIALIST/PA at 3 months documented in this encounter [facility] 11-06-2023 History and physical note PRE-ADMISSION TESTING HISTORY AND PHYSICAL EXAM DATE: 11/06/23 PCP: Awais Bright DO HISTORY OF PRESENT ILLNESS: Paige Mccarty, a 58 y.o. White or female, presents to [facility] for a pre-surgical H&P. 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 Henao publishing manager- will receive DDAVP infusion the day before [...] the most recent lab values available in [facility] at the time of the office visit and additional labs may have been drawn since that time. ASSESSMENT / DIAGNOSIS: MORBID OBESITY, HYPERTENSION PLAN: Paige Mccarty is scheduled for Davinci Bypass Gastric Da En Y on 11/20/[address] Kidd. DELMAR Harden 11/06/23 1505 [facility] Work Phone: 11-06-2023 History and physical note PRE-ADMISSION TESTING HISTORY AND PHYSICAL EXAM DATE: 11/06/23 PCP: wAais Bright DO HISTORY OF PRESENT ILLNESS: Paige Mccarty, a 58 y.o. White or female, presents to [facility] for a pre-surgical H&P. 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) Depression LIMON (dyspnea on exertion) no cp Fibromyalgia, primary GERD (gastroesophageal reflux disease) Heart flutter, ventricular (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 Henao publishing manager- will receive DDAVP infusion the day before [...] the most recent lab values available in [facility] at the time of the office visit and additional labs may have been drawn since that time. ASSESSMENT / DIAGNOSIS: MORBID OBESITY, HYPERTENSION PLAN: Paige Mccarty is scheduled for Davinci Bypass Gastric Da En Y on 11/20/[address] Kidd. DELMAR Harden 11/06/23 1503 documented in this encounter [facility] 11-06-2023 Instructions Adrianne Peoples RN - 11/06/2023 [...] clean clothes. Your surgery/procedure is scheduled at [facility] on 11-20-2023 at 9:30am Arrival Time 7:30am [facility] Address: [address] [place] [address] Park in P1 Parking lot located on [facility]. Report to the Entrance B. Check in at the information desk the surgery. The waiting room located on the second floor. If you have any questions prior to surgery, please call Pre-Admission Clinic at [phone] between 7:30 am and 4:30 pm Saturday through Saturday. If you have questions the morning of surgery, please call the Pre-op Department at [phone]. PLEASE FOLLOW THESE INSTRUCTIONS OR YOUR SURGERY [...] [facility], please call [phone] ([phone]). Do not use lotions, creams, powders, perfume, make up, cologne or after-shaves day of surgery. Remove ALL jewelry including wedding rings, body piercings,hair extensions that contain metal, nail kinyarwanda, make-up, and contact lens. You may brush [...] RIGHTS AND RESPONSIBILITIES As a patient at [facility], you have the right to: Receive medical care and be informed of who is taking care of you Be treated with dignity and respect Have a family member/medical representative of choice and your physician notified of your admission Receive information and actively participate in decisions about your care and treatment Refuse care, treatment and services Decide who may provide your support and speak for you Access protestant and spiritual services Participate in ethical issues [...] of hospital charges and payment methods Patient/patient medical representative responsibilities are to: Provide information about [...] promptly as possible documented in this encounter [facility] 10-14-2023 Evaluation note Encounter Date Diagnosis Assessment Notes Sep, Mixed hyperlipidemia (ICD-10 - E78.2) [facility] Other [id number] Evaluation note* Encounter Date Diagnosis Assessment Notes [...] profile, hemoglobin A1c and sooner as needed [facility] Other 10-05-2023 History of Present illness Narrative* [...] ratio from my perspective. [facility] 1(443) 777-689910-05-2023 Instructions* Patient Instructions* Melquiades Ahmadi MA - [...] time of your visit. [facility] Phone: 1(416) 723-787007-31-2023 Evaluation note* Encounter Date Diagnosis Assessment Notes [...] Apr, Morbid obesity (ICD- 10 - E66.01) [facility] Other 06-29-2023 Reason for visit Narrative1-2 MONTH/labs, [...] Ozempic and cover 2 different bariatric programs., [place] [facility], [place]ray, done at [facility] in February, Normal, [facility] hematology, BP, , [facility] Other 06-27-2023 Evaluation note* Encounter Date Diagnosis Assessment Notes Treatment Notes Treatment Clinical Notes Mar, Moderate persistent asthma without complication (ICD-10 - J45.40) Mar, Primary osteoarthritis of left knee (ICD-10 - M17.12) [facility] Other 06-27-2023 Evaluation note* Encounter Date Diagnosis [...] order her mammograms to be done at [facility] Maritza Sufer 04/23/2023 11:33:16 AM > 05.15.23 mammogram order faxed to [facility] , Health screenings for women material [...] Last visit I referred her to the [facility] medical bariatric clinic to see if [...] lab panel because of her medical complexity. [facility] Other 03-01-2023 History of Present illness Narrative* [...] Scheduled for bariatric surgery next month in [place], going through different aspects of work-up. * [...] results, can continue current dose of atorvastatin. -[facility] 250 DO Work Phone: 1(348) 980-547912-29-2022 Evaluation note* Encounter Date Diagnosis Assessment Notes Treatment Notes Treatment Clinical Notes Sep, Essential (primary) hypertension (ICD-10 - I10) [facility] Other 12-27-2022 Evaluation note* Encounter Date Diagnosis [...] pulmonary, etc. We will send for her pre-[facility] emergency room notes and chest x-ray. In light of her significant symptoms, we will also obtain another chest x-ray today. Also refer to [facility]. Discussed consider cardiac component. She does have [...] sooner as needed., Hydrochlorothiazide material was published [facility] Other 11-11-2022 Evaluation note* Encounter Date Diagnosis Assessment Notes Treatment Notes Treatment Clinical Notes Aug, Moderate persistent asthma without complication (ICD-10 - J45.40) Aug, Essential (primary) hypertension (ICD-10 - I10) Aug, Primary osteoarthritis of left knee (ICD-10 - M17.12) Aug, GERD (gastroesophageal reflux disease) (ICD-10 - K21.9) [facility] Other 03-24-2022 Evaluation note* Encounter Date Diagnosis [...] or pending above, Omeprazole material was published [facility] Other 07-10-2018 Progress note Author Casey Oliveira [facility] May 06, 2018 2:37pm Note Date/Time May 06, 2018 2:28 pm [facility] at [address] [address] Hem/Onc Follow Up Note - OP Signed Patient: Paige Mccarty MR#: [id number] : 1965 Acct:[id number] Age/Sex: 53 / F Type: REG RCR Copies to: Awais Bright DO~ Subjective Date/Time of Service: Date of Service: [...] of Therapies Summary of Therapies: 1. DDAVP (0.3mcg/dmy615=58smr, round to 40mcg) IV, prn, 30 min [...] planned. -If surgery is needed, consider DDAVP (0.3mcg/xnp810=90rbh, round to 40mcg) IV, prn 30 min prior to surgery. Watch hyponatremia. -If she developed excessive bleeding, consider 2 units of pooled platelets. Repeat dose of DDAVP can be given. (2) Thrombocytopenia Status: Chronic likely immune-related. Platelet count normalized. -See as needed. - Time Spent with Patient Greater than 50% of time spent with patient was for coordination of care (as documented) and wnje-ez-yhlq counseling of patient and/or family. less than 15 minutes Dictated By: Casey Oliveira MD DD/ 26 Signed By: <Electronically signed by Casey Oliveira MD> 05/06/18 143 [facility] Work Phone: 1(885) 192-107601-01-2009 History general Narrative - Reported* Type Description [...] Hospitalization History EGD (neg)- Dr. Avery 11/2007 [facility] Other Consult note Author Abena Henao [facility] March 28, 2023 8:36pm Note Date/Time March 28, 2023 2:15p m [facility] [place] [address] Hem/Onc Consult Note - OP Signed Patient: Paige Mccarty MR#: [id number] : 1965 Acct:[id number] Age/Sex: 57 / F Type: REG RCR [...] storage pool disease/thrombocytopenia with last appointment in 2017. She had extensive priorwork-up for von Willebrand's syndrome which was also negative. This rare platelet functional disorder does tend to respond to arginine vasopressin (DDAVP) to prevent surgical bleeding and this was successfully utilized in 2017 before cholecystectomy without any surgical complications. She is now scheduledfor bariatric surgery with surgical recommendations/ clearance . She reports easy bruising is stable, small purpura in feet comes and goes. She had cardiac clearance for surgery and we are forwarding this note as well as a clearance form to her surgeon Dr. López Kidd at the [place] [facility] recommendation to inform us [...] [address] Gleason without bleeding issues [facility] - History Attestation statement: The following information [...] mcg (previously was given 40 mcg in 2017). - Summary of Therapies Summary of Therapies: 1. DDAVP (0.3mcg/qee230=36bnn, round to 40mcg) IV, prn, 30 min before surgery. 2. Plan to give DDAVP (0.3mcg/pao866=24kgv, round to 40mcg) Subjective/ROS - Narrative: CONSTITUTIONAL: [...] DDAVP. -With prior surgery, she received DDAVP (0.3mcg/iia127=70pub, round to 40mcg) IV, prn 30 min [...] for bariatric surgeon Dr. López Kidd in [place]. (3) Encounter for coordination of complex care Will complete DDAVP infusion orders when I am notified of surgical date. - Time with Patient Total Time Spent with Patient (Consult): 60 mins or more - High complexity 90 minute visit for reviewing extensive prior records since initial consultation [id number], surgical clearance form, preparation of DDAVP orders once surgical date isgiven. Coordination of Care & Counseling Time: Greater than 50% of time spent with patient was for coordination of care (as documented) and zoqq-sd-drcs counseling of patient and/or family. 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 [facility] Work Phone: evaluation note* Diagnosis Onset Date Resolution Status Delta storage pool disease c hronic Encounter for coordination of complex care chronic Morbid obesity with BMI of 50.0-59.9, adult chronic Thrombocytopenia chronic [facility] Work Phone: evaluation note* Diagnosis Hypertensive heart disease without CHF- Primary Encounter to discuss test results Other specified counseling SOB (shortness of breath) Shortness of breath Hyperlipemia, mixed Mixed hyperlipidemia Pre-diabetes Other abnormal glucose BMI 50.0-59.9, adult ([facility]) PVC (premature ventricular contraction) Other premature beats Current every day smoker documented in this encounter [facility] Work Phone: Evaluation note* Diagnosis Morbid obesity ([facility]) Morbid obesity Hypertension, unspecified type [facility] Diagnosis 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 Other and unspecified postsurgical nonabsorption Vitamin D deficiency Post-operative nausea and vomiting Nausea with vomiting [facility] Diagnosis Postsurgical malabsorption- Primary Malnutrition following gastrointestinal surgery Other and unspecified postsurgical nonabsorption History of Da-en-Y gastric bypass [facility]* Diagnosis S/P gastric bypass- Primary Bariatric surgery status Hypertensive heart disease without CHF Hyperlipemia, mixed Mixed hyperlipidemia Current every day smoker Hypokalemia Hypopotassemia Medication course changed BMI 45.0-49.9, adult (Multi) documented in this encounter [facility] Work Phone: Evaluation note* Diagnosis Onset Date Resolution Status Benign positional vertigo ac audrey Chronic back pain acute Encounter for long-term (current) use of medications acute Essential (primary) hypertension acute Fibromyalgia acute Gastro-esophageal reflux disease without esophagitis acute Generalized OA acute Impaired glucose tolerance a cute Mixed hyperlipidemia acute Moderate persistent asthma without complication acute Obesity, Class III, BMI 40-49.9 (morbid obesity) acute Peripheral venous insufficiency 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 She reports [...] shows sinus rhythm at 86 bpm with IN interval of 170 ms QRS duration 96 [...] arise, * Sincerely, * Terese Braxton MD [facility] * Addendum, this patient would benefit from statin therapy. Her LDL goal would be closer to 70 would recommend rosuvastatin 40 mg daily with lipid and liver to be checked 3 months after. [facility] Center Work Phone: History of Present [...] * 20. BNP level 16 January 2023 -[facility]-Mel[facility]ina 250 DO Work Phone: InstructionsNot on filedocumented in this encounter [facility] SystemReason for referral (narrative)* Reason DYSPNEA Diagnosis 1 Dyspnea (R06.00) Referral Organization [facility] Family Lela Velasquez Referring Provider First Name Awais Referring Provider Last Name Oberer Referring Provider Specialty Family Prac jennifer Referred Organization [facility] enter Referred Provider Dung Marcial Referred Address [address] ,[place], [place],[address] Referred Provider Specialty Cardiology Referral Priority Routine Referral Appointment Date 2022-11-22 General Notes Greta Camilo 2021 01:53:19 PM >referral sent [facility]42 Other Reason for referral (narrative)* Consultation (Routine) - Authorized Specialty Diagnoses / Procedures Referred By Shirley lopez Referred To Contact Cardiology Diagnoses Hypertensive heart disease without CHF Procedures Follow Up In Cardiology Terese Braxton MD [address] [place] [address] [address] [place] [address] Referral ID Status Reason Start Date Expiration Date V isits Requested Visits Authorized [id number] Authorized 08/01/2023 01/28/2024 1 1 [facility] Work Phone: Summary Purpose Family History [...] of atrial fib rillation: Father(V17.49, Z82.49) Status:Active Relationship Condition Age at Onset Recorded Date/T wilmer Not Specified Hypertension Unknown Malignant neoplasm of skin Unknown father Disorder of thyroid Unknown brother Malignant neoplasm of skin Unknown brother Malignant neoplasm Unknown father Diabetes mellitus Unknown Hypertension Unknown Malignant neoplasm Unknown Not Specified Malignant neoplasm Unknown Advance Directives No Advanced Directives Records Found Advance Directive Response Recorded Date/ Time Advance Directives No April 26 8:59am Advance Directive Response Recorded Date/ Time Advance Directives No April 26 9:59am Latest Code Status on File Code Status Date Activated Date Inactivated Comments Full Code 11/20/2023 10:49 AM 11/21/2023 1:27 PM Advance Directive Response Recorded Date/ Time Advance Directives No August 14, 2017 11:18am Chief Complaint and Reason for Visit Chief [...] Chief Complaint z00.00 e66.01 e78.2 Chief Complaint Amb Documentation 6 month/labs Chief Complaint 6 month/labs Flank pain Dysuria Reason for Visit Benign positional ve rtigo Chronic back pain Encounter for long-term (current) use of medications Essential (primary) hypertension Fibromyalgia Gastro-esophageal reflux disease without esophagitis Generalized OA Impaired glucose tolerance Mixed hyperlipidemia Moderate persistent asthma without complication Obesity, Class III, BMI 40-49.9 (morbid obesity) 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 bright , chest pain.PAIGE CATHRYN is being seen for a 6 month follow-up of.PAIGE MCCARTY is being seen for a 6 month follow-up of. Reason for Referral Specialty Diagnoses / Procedures Referred By Shirley t Referred To Contact Diagnoses Hyperlipemia, mixed Terese Braxton MD [address] [facility] [address] [place] [address] Referral ID Status Reason Start Date Expiration Date Visits Re quested Visits Authorized [id number] Closed 1 1 Specialty Diagnoses / Procedures Referred By Contac t Referred To Contact Cardiology Diagnoses Hypertensive heart disease without CHF Procedures Follow Up In Cardiology Terese Braxton MD [address] [facility] [address] [place] [address] Terese Braxton MD [address] [facility] [address] [place] [address] Referral ID Status Reason Start Date Expiration Date V isits Requested Visits Authorized [id number] Authorized 02/10/2024 02/09/2025 1 1 Additional Source Comments REASON FOR VISIT (unrecogniz ed section and content) Reason Comments Results Testing results Reason Comments Post-op 1 week bypass post-o p. 11-20-23 Reason Comments Follow-up 6m Specialty Diagnoses / Procedures Referred By Contac t Referred To Contact Cardiology Diagnoses Hypertensive heart disease without CHF Procedures Follow Up In Cardiology Terese Braxton MD [address] [facility] [address] [place] [address] Referral ID Status Reason Start Date Expiration Date Visits Re quested Visits Authorized [id number] Closed 08/01/2023 01/28/2024 1 1 INFORMATION SOURCE (unrecogn ized section and content) DATE CREATED AUTHOR 09/27/2022 [facility] DATE CREATED AUTHOR AUTHOR'S ORGANIZ ATION 05/04/2023 [facility] DATE CREATED AUTHOR AUTHOR'S ORGANIZ ATION 07/31/2023 [facility] DATE CREATED AUTHOR AUTHOR'S ORGANIZ ATION 08/04/2023 [employer] DATE CREATED AUTHOR AUTHOR'S ORGANIZ ATION 04/16/2024 [facility] DATE CREATED AUTHOR AUTHOR'S ORGANIZ ATION 04/18/2024 [facility] DATE CREATED AUTHOR AUTHOR'S ORGANIZ ATION 08/19/2024 [facility] [employer] (unrecognized sec tion and content) Team Status: Active Member Role Status Dates Awais Oberer , DO Primary Care Provider Active Team Status: Active Member Role Status Dates Awais Oberer , DO Primary Care Provider Active St art: January 15, 2024 Adrianne Su LPN Attending Provider Active Start: January 15, 2024 Team Status: Active Member Role Status Dates Awais Oberer , DO Primary Care Provide r, Attending Provider Active Start: February 05, 2024 Team Status: Active Member Role Status Dates Awais Oberer , DO Primary Care Provider Active St art: March 03, 2024 Aleida Garcia MD Attending Provider Active Sta rt: March 03, 2024 Team Status: Active Member Role Status Dates Awais Oberer , DO Primary Care Provide r, Attending Provider Active Start: April 07, 2024 Team Status: Active Member Role Status Dates Awais Oberer , DO Primary Care Provide r, Attending Provider Active Start: April 13, 2024 Team Status: Inactive Member Role Status Dates Awais Oberer , DO Primary Care Provide r, Attending Provider Active Start: April 14, 2024 End: April 14, 2024 Team Status: Inactive Member Role Status Dates Awais Oberer , DO Primary Care Provider Active Terese Braxton MD Attending Provider Active Team Status: Active Member Role Status Dates Awais Oberer , DO Primary Care Provider, Referring Prov ider Active Abena Henao MD Attending Provider Active Team Status: Inactive Member Role Status Dates Awais Oberer , DO Primary Care Provider, Attending Prov ider Active Team Status: Inactive Member Role Status Dates Awais Oberer , DO Primary Care Provider, Attending Prov ider Active López Kidd MD Referring Provider Active Sales Review Clerk Relationship Specialty Start Date End Date Awais Bright DO [address] [facility] [place] [address] PCP - General 11/22/22 Sales Review Clerk Relationship Specialty Start Date End Date Awais Bright DO [address] [place] [address] [place] [address] PCP - General Family Medicine 03/13/23 Sales Review Clerk Relationship Specialty Start Date End Date JohannaAwais [address] [place] [address] PCP - General [facility] 03/13/23 Sales Review Clerk Relationship Specialty Start Date End Date JohannaAwais [address] [place] [address] PCP - General [facility] 03/13/23 Sales Review Clerk Relationship Specialty Start Date End Date Johanna Awais Shola [address] [place] [address] PCP - General Family [facility] 02/10/24 Team Status: Inactive Member Role Status Dates Awais Bright DO Attending Provider Active Start : April 14, 2024 End: April 14, 2024 Goals (unrecognized section and content) Goals may [...] BE BASED ON THE PRIMARY CLINICAL RECORDS. [facility] [employer] [facility]. provides no warranty or guarantee of the accuracy or completeness of information in this document.
[2024-08-21 11:23] LABS: Alanine Aminotransferase 14 U/L (14-59); Albumin Globulin Ratio 0.9; Albumin Level 3.1 g/dL (3.4-5.0); Alkaline Phosphatase 67 U/L (46-116); Anion Gap 15.2; Aspartate Amino Transferase 16 U/L (15-37); BUN Creatinine Ratio 23.1; Bilirubin Total 0.5 mg/dL (0.2-1.0); Calcium 9.6 mg/dL (8.5-10.1); Carbon Dioxide 21.8 mmol/L (21.0-32.0); Chloride 107 mmol/L (98-107); Cholesterol 147 mg/dL (<=200); Estimated GFR (African America >60 (>=60 mL/min/1.73m^2); Estimated GFR (Non-African Ame >60 (>=60 mL/min/1.73m^2); Globulin 3.6 g/dL; Glucose 103 mg/dL (74-106); HDL Cholesterol 49 mg/dL (40-60); Sodium 140 mmol/L (136-145); Total Protein 6.7 g/dL (6.4-8.2); Triglycerides 186 mg/dL (<=150); VLDL CHOLESTEROL 37.2 mg/dL
[2024-08-21 11:30] LABS: Hematocrit 41.5 % (36.0-48.0); Mean Corpuscular HGB Conc 33.7 g/dL (29.9-35.2); Mean Corpuscular Volume 89.1 fL (81.0-99.0); Mean Platelet Volume 12.8 fL (9.5-13.5); Platelet Count 178 10^3/uL (150-450); Red Blood Count 4.66 10^6/uL (4.20-5.40); Red Cell Distribution Width 13.3 % (11.0-15.0); White Blood Count 7.4 10^3/uL (4.0-11.0)
[2024-08-21 12:05] LABS: Lymphocytes Absolute Manual 2.29 10^3/uL (1.20-3.80); Segmented Neut Absolute Manual 4.44 10^3/uL (1.4-6.5)
[2024-08-21 12:06] LABS: Basophils Abs Manual 0.07 10^3/uL (0.00-0.10); Monocytes Absolute Manual 0.59 10^3/uL (0.30-0.80)
== END 2024-08-21 10:47 | disposition home or self-care (01) ==
LOC: LAB 10:48
PROVIDERS: PCP Family Medicine
DX: E78.2 Mixed hyperlipidemia (principal); I11.9 Hypertensive heart disease without heart failure; R06.02 Shortness of breath
CPT/HCPCS: 36415; 80053; 80061; 85007; 85027

== ENCOUNTER 2024-10-12 10:15 | Outpatient (OUT) | payer OTHER, SELFPAY ==
--- OUTSIDE RECORDS SUMMARY | 2024-10-12 10:40 | XMS_ITS | CCD ---
Author Organization [facility] Care Team Providers Care Wringer Operator Name Role Phone Oberer, Awais Unavailable [facility]carmen, DR ULLOA Primary Care Unavailable LAWRENCE, DR LEEROY Ascencio Admitting Unavailabl e LAWRENCE, DR LEEROY Ascencio Attending Unavailabl e LAWRENCE, DR LEEROY Ascencio Consulting Unavailabl e MILLIE, PARVIN IBANEZ Consulting Unavailable ROBBI CORREIA Consulting Unavailable Oberer, DO Awais Primary Care Provider Oberer, DO Awais Attending Provider Oberer, Awais L Unavailable Unavailable Unavailable MD Terese Braxton Attending Provider Oberer, DO Awais Primary Care Provider Oberer, DO Awias Attending Provider [phone] MD Terese Braxton Attending Provider Oberer, DO Awais Primary Care Provider [phone] Cathy Covarrubias Unavailable Oberer, DO Awais Primary Care Provider MD Terese Braxton Attending Provider Oberer, DO Awais Referring Provider MD Abena Henao Attending Provider Oberer, DO Awais Primary Care Provider MD Terese Braxton Attending Provider [phone] Oberer, DO Awais Attending Provider [phone] MD López Kidd Referring Provider [phone] Dr. Terese Braxton Attending Unavailable Oberer, Dr. Awais Jolley Primary Care Unavailable Fox, Dr. Gudino Referring Unavailable Braxton, Dr. Gudino Attending Unavailable Oberer, Dr. Awais Jolley Primary Care Unavailable Fox, Dr. Gudino Attending Unavailable Oberer, Dr. Awais Jolley Primary Care Unavailable Fox, Dr. Gudino Attending Unavailable Oberer, Dr. Awais Jolley Primary Care Unavailable Holly Jaquez Unavailable Oberer, DO Awais Primary Care Provider MD Terese Braxton Attending Provider Terese Braxton Referring Unavailable Terese Braxton Attending [...] Provider Oberer Awais VELÁSQUEZ Primary Care Provider [phone] Oberer Awais VELÁSQUEZ Primary Care Provider Oberer, DO Awais Attending Provider Oberer, Awais Primary Care Unavailable Oberer, Awais Admitting Unavailable Oberer, Awais Attending Unavailable Terese Braxton Attending Unavailable Terese Braxton Admitting Unavailable Oberer, Awais Primary Care Unavailable [...] Referring Unavailable OBERER, AWAIS Primary Care Unavailable Oberer DO, Awais L Primary Care Provider TERESE BRAXTON Attending Unavailable BRAXTON, TERESE Referring Unavailable OBERER, AWAIS L Primary Care Unavailable BRAXTONSTANISLAV BURNSTHA Attending Unavailable BRAXTON, TERESE Referring Unavailable OBERER, AWAIS L Primary Care Unavailable Allergies Allergy Classification Reported Allergen(s) Allergy Type Date of Onset Reaction(s) Facility (16 sources) Altretamine Drug Allergy 04-14-20 24 Unknown, Dizziness [facility] (14 sources) Bacitracin Drug Allergy yeast infection DxNA [facility] Other (20 sources) Cefuroxime; Translations: [Ceftin TABS] Drug Allergy 01-31-20 21 Unknown, diarrhea, Rash, Rash, diarrhea [facility] (16 sources) Ibuprofen Drug Allergy 04-14-20 24 insomnia [facility] (20 sources) pregabalin; Translations: [PREGABALIN] Drug Allergy 01-31-20 21 Abnormal Behavior [facility] (20 sources) Sertraline; Translations: [Zoloft] Drug Allergy 01-31-20 21 Confusion, Other (See Comments) [facility] (20 sources) traMADol; Translations: [Ultram] Drug All[facility] 01-31-[facility] Beeswax Drug allergy 04-14-20 24 Unknown, [facility] (14 sources) Bees Propensity to adverse reactions swelling DxNA [facility] Fast Fi[facility] Other (9 sources) Sertraline Drug Allergy Unknown [id number] Other (14 sources) Aspirin; Translations: [ASPIRIN] Drug Allergy 08-12-20 15 unable to take because of clotting disorder [facility] (1 source) bee venom Drug allergy (disorder) 11-01-19 17 [facility] (1 source) Cefuroxime Drug Allergy 08-12-20 15 [facility] (3 sources) gabapentin; Translations: [GABAPENTIN] Drug Allergy 08-12-20 15 [facility] (1 source) pregabalin Drug Allergy 08-12-20 15 [facility] (1 source) Sertraline Drug Allergy 08-12-20 15 [facility] (1 source) traMADol Drug Allergy 08-12-20 15 [facility] (12 sources) Adhesive Tape; Translations: [adhesive tape] Allergy to substance 01-31-20 Redness of Skin [facility] (12 sources) venom-honey bee; Translations: [venom-honey bee] Allergy to substance 01-31-20 21 Swelling [facility] (12 sources) NSAIDS (Non-Steroidal Anti-Inflamma; Translations: [NSAIDS (Non-Steroidal Anti-Inflamma] Propensity to adverse reactions 01-31-20 21 unable to take because of clotting disorder [facility] (9 sources) apis mellifera venom Allergy to substance (finding) [facility] [employer] 250 DO Work Phone: (14 sources) Aspirin; Translations: [aspirin] Drug Allergy 07-31-20 Unknown, Other (See Comments) [facility] (15 sources) gabapentin; Translations: [gabapentin] Drug Allergy 02-08-20 23 Drowsiness, Other (See Comments) [facility] [employer] 250 DO Work Phone: (10 sources) natural latex rubber; Translations: [LATEX] Allergy to substance (finding) 07-31-20 23 [facility] 3 Repository (9 sources) NSAIDs; Translations: [NSAIDs] [facility]: (9 sources) Sulfamethoxazole / Trimethoprim; Translations: [Bactrim] Drug Allergy -[facility] 250 DO Work Phone: (8 sources) Cefuroxime; Translations: [CEFUROXIME AXETIL] Drug Allergy 02-08-20 [facility] Work Phone: (3 sources) Latex Propensity to adverse reactions 07-31-20 [facility] Work Phone: (8 sources) Non-steroidal anti-inflammatory agent; Translations: [NSAIDS (NON-STEROIDAL ANTI-INFLAMMATORY DRUG)] Propensity to adverse reactions 07-31-20 Unknown, Other (See Comments) [facility] Work Phone: (7 sources) Bee Venom Protein (Honey Bee); Translations: [BEE VENOM PROTEIN (HONEY BEE)] Propensity to adverse reactions 07-31-20 Swelling [facility] Work Phone: (2 sources) FLUoxetine; Translations: [FLUOXETINE] Drug Allergy 02-08-20 Other (See Comments) [facility] (4 sources) Other; Translations: [OTHER] Propensity to adverse reactions 11-06-19 Other (See Comments) [facility] (3 sources) Adhesive Tape-Silicones; Translations: [ADHESIVE TAPE-SILICONES] Propensity to adverse reactions to drug 11-20-19 [facility] (2 sources) Antibiotic Allergy to substance 10-15-20 yeast infection [facility] (1 source) Aspirin Drug Allergy 11-19-19 [facility] (1 source) Cefuroxime Drug Allergy 11-19-19 [facility] (1 source) pregabalin Drug Allergy 11-19-19 [facility] (1 source) Sertraline Drug Allergy 11-19-19 [facility] (1 source) traMADol Drug Allergy 11-19-19 [facility] Medications Current Medications Medication Drug [...] 0 Active take 4 tablets by mo uth every twelve hours Acetaminophen 500 MG 4 tablets Orally BI D Active [id number] 200 actuat albuterol 0.09 mg/actuat metered dose [...] Start: 01-18-2023 take 2 puff(s) by mo uth every four hours as needed for wheezing VENTOLIN HFA 90 mcg/actuation inhaler INHALE 2 PUFFS BY MOUTH NEEDED FOR WHEEZING EVERY 4 HOURS 0 01/18/2023 Active Start: 01-23-2021 End: 03-27-2023 Albuterol Sulfate Discontinu ed 2 INH INHALATION Four times daily January 23, 2021 12:00am March 27, 2023 4:11pm End: 08-24-2024 albuterol 5 mg/mL nebulizer solution Take by nebulization. Use 0.5 ml in 2-3 ml of saline every 4-6 hours as needed for cough and wheeze 08/24/2024 Discontinued (Therapy completed) take 1-2 puff(s) by inhalation every four [...] mg / cholecalciferol 200 unt oral tablet (2 sources) Vitamin D take 1 tablet by mouth every week calcium citrate-vitamin D3 (Citracal+D) 315 mg-5 mcg (200 unit) tablet Take 1 tablet by mouth 1 (one) time per week. Active cholecalciferol 1.25 mg oral capsule (5 sources) Vitamin D Start: 01-14-2024 take 1 [...] tablet 0 11/26/2023 Active Start: 05-06-2023 End: 01-10-2024 take 1 tablet by mouth every week [...] a day for 30 days Aug, Active End: 08-24-2024 take 1 puff(s) by mouth twice daily fluticasone (Flovent Diskus) 100 mcg/actuation diskus inhaler Inhale 1 puff 2 times a day. Rinse mouth with water after use to reduce aftertaste and incidence of candidiasis. Do not swallow. 08/24/2024 Discontinued (Therapy completed) take 1 puff(s) by in halation in [...] oral tablet (20 sources) Thiazide Diuretic Start: 08-24-2024 hydroCHLOROthiazide (HYDRODiuril) 50 mg tablet Indications: Hypertensive heart disease without CHF Take 1 tablet (50 mg) by mouth if needed (as needed for edema) for up to 30 doses. As needed 30 tablet 11 08/24/2024 Active Start: 01-18-2023 End: 08-24-2024 take 1 tablet by mouth once daily hydroCHLOROthiazide (HYDRODIURIL) 50 mg tablet Take 1 tablet (50 mg total) by mouth daily. 0 01/18/2023 Active Start: 05-06-2018 take 50 mg by mouth once daily Hydrochlorothiazide Active 50 MG PO Daily May 06, 2018 12:00am Start: 08-16-2017 take 25 mg by mouth once daily Hydrochlorothiazide Active 25 MG PO Daily May 06, 2018 12:00am lisinopril 20 mg oral tablet (20 sources) Angiotensin Converting Enzyme Inhibitor Start: 08-24-2024 End: 08-24-2025 take 1 tablet by mouth once daily lisinopril 20 mg tablet Indications: Hypertensive heart disease without CHF Take 1 tablet (20 mg) by mouth once daily. 30 tablet 11 08/24/2024 08/24/2025 Active Start: 11-19-2023 take 40 mg by mouth once daily Lisinopril Active 40 MG PO Daily November 19, 2023 2:37pm Start: 01-21-2023 End: 02-09-2025 take 1 tablet by mouth once daily lisinopril 40 mg tablet Indications: Hypertensive heart disease without CHF Take 1 tablet (40 mg) by mouth once daily. 90 tablet 3 02/10/2024 08/24/2024 Discontinued (Dose adjustment) Start: 01-21-2023 take 1 tablet by demetrio [...] Active magnesium oxide 400 mg oral tablet (8 sources) Start: 02-10-2024 End: 08-24-2025 take 1 tablet by mouth once daily magnesium oxide (Mag-Ox) 400 mg tablet Indications: Hypertensive heart disease without CHF Take 1 tablet (400 mg) by mouth once daily. 90 tablet 3 08/24/2024 08/24/2025 Active Start: 07-15-2023 take 1 tablet by [...] Start: 11-21-2023 take 1 capsule by mo [facility] once daily before breakfast omeprazole (PriLOSEC) 40 [...] nausea). 30 tablet 1 11/26/2023 Active PNV,calcium 28-lxck-fzkrm acid ( VITAMIN PLUS LOW IRON) 27 mg iron- 1 mg tablet (1 source) Start: 12-16-2023 take 1 tablet by mouth in the morning PNV,calcium 23-slwh-xusjq acid ( VITAMIN PLUS LOW IRON) 27 mg iron- 1 mg tablet Indications: Postsurgical malabsorption , Malnutrition following gastrointestinal surgery , History of Da-en-Y gastric bypass Take 1 tablet by mouth in the morning. 90 tablet 3 12/16/2023 Active Mrg461-Uljiipy Fumarate-Fa () 28-800 mg-mcg Tablet (6 sources) Start: 03-28-2023 Aqx089-Ufahghr Fumarate-Fa () 28-800 mg-mcg Tablet Active TAB PO March 28, 2023 12:00am [id number] fumarate-FA () 28-800 mg-mcg tablet (2 sources) Start: 03-28-2023 [id number] fumarate-FA () 28-800 mg-mcg tablet 03/28/2023 Active [...] November 19, 2023 2:38pm Start: 01-18-2023 End: 08-24-2025 take 0.5 tablet by mouth once daily rosuvastatin (Crestor) 40 mg tablet Indications: Hyperlipemia, mixed Take 0.5 tablets (20 mg) by mouth once daily. 45 tablet 3 08/24/2024 08/24/2025 Active Start: 11-23-2022 take 1 tablet by mouth at bedt wilmer Rosuvastatin Calcium 40 MG Oral Tablet TAKE 1 TABLET AT BEDTIME Quantity: 90 Refills: 3 Ordered: 23-Nov-2022 Terese Braxton MD Start : 23-Nov-2022 Active new start take 1 tablet by demetrio every twenty-four hours Rosuvastatin Calcium 20 MG 1 tablet Orally Once a day for 30 days Active spironolactone 25 mg oral tablet (3 sources) Aldosterone Antagonist Start: 02-10-2024 End: 08-24-2025 take 1 tablet by mouth once daily spironolactone (Aldactone) 25 mg tablet Indications: Hypertensive heart disease without CHF , Hypokalemia , Medication course changed Take 1 tablet (25 mg) by mouth once daily. 90 tablet 3 08/24/2024 08/24/2025 Active Completed/Discontinued Medications Medication Drug Class(es) Dates [...] chronic cholecystitis without obstruction] Episodic Cardiac dysrhythmias (4 sources) Multiple premature ventricular complexes; Translations: [Ventricular [...] [Benign paroxysmal vertigo, unspecified ear] 04-14-2024 Episodic Diseases of mouth; excluding dental (1 [...] Episodic Hypertension with complications and secondary hypertension (15 sources) Hypertensive heart disease without congestive heart [...] current use of drug therapy; Translations: [Other statistical machine mechanic (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 therapy] Episodic Other aftercare (10 sources) Treatment changed; Translations: [Long-term (current) use of other medications] Onset: 4 02-10-2024 Episodic Other aftercare (2 sources) Patient encounter status; Translations: [Other fdc (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 therapy] 01-15-2024 Episodic Other and [...] Translations: [Tinnitus, bilateral] Episodic Other gastrointestinal disorders (4 sources) History of bypass of stomach; Translations: [...] metabolic disorders (2 sources) Body mass index 30+ - obesity; Translations: [Body mass index (BMI) 37.0-37.9, adult] Onset: 4 08-24-2024 Chronic Other nutritional; endocrine; and metabolic disorders (2 sources) Body mass index (BMI) 37.0-37.9, adult; Translations: [Body mass index (BMI) 37.0-37.9, adult] Onset: 4 Chronic Other nutritional; endocrine; [...] Date Documented Da te Episodic/Chronic Administrative/social admission (18 sources) Follow-up status; Translations: [Other specified counseling] Onset: 08-01-2023 03-28-2023 Episodic Cardiac dysrhythmias (6 sources) Palpitations; Translations: [Palpitations] Onset: 07-31-2023 07-31-2023 Episodic Diabetes mellitus without complication (20 sources) Impaired glucose tolerance; Translations: [Impaired glucose tolerance (oral)] Onset: 01-18-2022 Resolved: 01-18-2022 Episodic Fluid and electrolyte disorders (6 sources) Hypokalemia; Translations: [Hypokalemia] Onset: 02-10-2024 02-10-2024 Episodic Malaise and fatigue (17 sources) Fatigue; Translations: [Other malaise and fatigue] Onset: 02-13-2023 Episodic Mood disorders (2 sources) Mood disorders Onset: 11-20-2023 11-20-2023 Nausea and vomiting (4 sources) Postoperative nausea and vomiting; Translations: [Nausea with vomiting, unspecified] Onset: 11-26-2023 11-26-2023 Episodic Other aftercare (8 sources) Other statistical machine mechanic (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 therapy; Translations: [Long-term (current) use of other medications] Onset: 01-18-2022 Resolved: 01-18-2022 Episodic Other gastrointestinal disorders (3 sources) Bariatric surgery status; Translations: [Bariatric surgery status] Onset: 11-26-2023 Episodic Other lower respiratory disease (14 sources) Dyspnea; Translations: [Shortness of breath] Onset: 02-13-2023 Episodic Other nervous system disorders (1 source) Other acute postprocedural pain; Translations: [Other acute postprocedural pain] Onset: 11-20-2023 Episodic Other non-traumatic joint disorders (1 source) Pain in left hip Onset: 01-18-2022 Resolved: 01-18-2022 Episodic Other nutritional; endocrine; and metabolic disorders (20 sources) Body mass index 40+ - severely obese; Translations: [Morbid obesity] Onset: 07-31-2023 Resolved: 08-24-2024 03-28-2023 Chronic Other screening for suspected conditions (not mental disorders or infectious disease) (19 sources) Encounter for screening mammogram for malignant neoplasm of breast; Translations: [Encounter for screening for malignant neoplasm of colon] Onset: 01-18-2022 Resolved: 01-18-2022 Episodic Residual codes; unclassified (12 sources) Disturbance in sleep behavior; Translations: [Sleep disturbance, unspecified] Onset: 07-31-2023 07-31-2023 Episodic Residual codes; unclassified (1 source) Other specified postprocedural states; Translations: [Other specified postprocedural states] Onset: 11-26-2023 Episodic Unclassified (1 source) Lumbosacral pain M54.50 Onset: 01-18-2022 Resolved: 01-18-2022 Unclassified (1 source) COUGH, UNSPECIFIED; Translations: [COUGH, UNSPECIFIED] Onset: 09-24-2022 Unclassified (9 sources) Patient status finding; Translations: [Patient new to provider] Unclassified (3 sources) Onset: 08-01-2023 08-01-2023 Results Test Name Value Interpretation Reference Range Facility Urine Cultureon 04-14-2024 Bacteria identified Cx Nom (U) 20,000 colonies/ml mixed bacterial skin contaminants 2 Days PERFORMED BY: [place] [address] PATHOLOGIST SALES AND SERVICE ENGINEER SILVINA Sebastian [facility] Comment on above: Performed By: #### C UU #### [address] Glucose mean value [Mass/vol ume] in Blood Estimated from glycated hemoglobinon 04-13-2024 Average glucose Estimated from glycated hemoglobin (Bld) [Mass/Vol] 117 mg/dL [facility] - Hematology and Cell countson 04-13-2024 HbA1c (Bld) [Mass fraction] 5.7 % 4.5-6.2 [facility] Comment on above: ADA RECOMMENDED LIMI T 4.0 - 6.0ADA THERAPEUTIC TARGET < 7.0ACTION SUGGESTED> 7.0 Basophils Auto (Bld) [#/Vol] on 04-07-2024 Basophils (Bld) [#/Vol] 0.0 10 3/uL 0.0-0.1 [facility] Basophils/100 WBC Auto (Bld) on 04-07-2024 Basophils/100 WBC (Bld) 0.4 % 0.2-2.0 [facility] Blood thiamine measurement ( moles/volume)on 04-07-2024 Thiamine (Bld) [Moles/Vol] 120.3 nmol/L 66.5-200.0 [facility] Comment on above: This test was develo ped and its performance characteristicsdetermined by [employer]. It has not been cleared orapproved by the Food and Drug Administration.Performed at: [address] [id number] Director: Argenis Reynolds MD, Phone: [phone] Cholesterol in LDL Calc [Mas s/Vol]on 04-07-2024 Cholesterol in LDL [Mass/Vol] 85.0 mg/dL [facility] Comment on above: <100 mg/dl [id number] 0-129 mg/dl NEAR OR ABOVE [id number] mg/dl BORDERLINE [id number] mg/dl HIGH>190 mg/dl VERY HIGH Cholesterol in VLDL Calc [Ma ss/Vol]on 04-07-2024 Cholesterol in VLDL [Mass/Vol] 31.4 mg/dL [facility] Eosinophils/100 WBC Auto (Bl d)on 04-07-2024 Eosinophils/100 WBC (Bld) 1.4 % 0.9-7.0 [facility] Erythrocyte distribution wid th Auto (RBC) [Ratio]on 04-07-2024 Erythrocyte distribution width (RBC) [Ratio] 14.0 % 11.0-15.0 [facility] Estimated glomerular filtrat ion rate (GFR) non- Americanon 04-07-2024 GFR/1.73 sq M.predicted among non-blacks MDRD (S/P/Bld) [Vol rate/Area] mL/min/{1.73_m2} >=60 [facility] Globulin Calc (S) [Mass/Vol] on 04-07-2024 Globulin (S) [Mass/Vol] 3.9 g/dL [facility] Hematocrit Auto (Bld) [Volum e fraction]on 04-07-2024 Hematocrit (Bld) [Volume fraction] 42.2 % 36.0-48.0 [facility] Hemoglobin [Mass/volume] in Bloodon 04-07-2024 Hemoglobin (Bld) [Mass/Vol] 14.0 g/dL 12.0-16.0 [facility] - Chemistry and C hemistry - challengeon 04-07-2024 Albumin [Mass/Vol] 3.5 g/dL 3.4-5.0 [facility] ALP [Catalytic activity/Vol] 77 U/L 46-116 [facility] ALT [Catalytic activity/Vol] 21 U/L 14-59 [facility] AST [Catalytic activity/Vol] 18 U/L 15-37 [facility] Bilirubin [Mass/Vol] 0.7 mg/dL 0.2-1.0 [facility] Bilirubin.direct [Mass/Vol] 0.2 mg/dL 0.0-0.2 [facility] Calcium [Mass/Vol] 9.6 mg/dL 8.5-10.1 [facility] Chloride [Moles/Vol] 105 mmol/L 98-107 [facility] Cholesterol [Mass/Vol] 165 mg/dL <=200 [facility] Cholesterol in HDL [Mass/Vol] 49 mg/dL 40-60 [facility] Comment on above: > or =60 mg/dl - LOW CARDIOVASCULAR RISK<40 mg/dl - HIGH CARDIOVASCULAR RISK CO2 [Moles/Vol] 24.3 mmol/L 21.0-32.0 [facility] Cobalamin (Vitamin B12) [Mass/Vol] 1114.0 pg/mL 193.0-986. 0 [facility] Creatinine [Mass/Vol] 0.85 mg/dL 0.55-1.02 [facility] GFR/1.73 sq M.predicted MDRD (S/P/Bld) [Vol rate/Area] mL/min/{1.73_m2} >=60 [facility] Glucose [Mass/Vol] 111 mg/dL 74-106 [facility] Iron [Mass/Vol] 70.0 ug/dL 50.0-170.0 [facility] Potassium [Moles/Vol] 3.6 mmol/L 3.5-5.1 [facility] Protein [Mass/Vol] 7.4 g/dL 6.4-8.2 [facility] Sodium [Moles/Vol] 139 mmol/L 136-145 [facility] Triglyceride [Mass/Vol] 157 mg/dL <=150 [facility] Urea nitrogen [Mass/Vol] 18.0 mg/dL 7.0-18.0 [facility] Urea nitrogen/Creatinine [Mass ratio] 21.2 mg/mg [facility] - Hematology and Cell countson 04-07-2024 Immature granulocytes/100 WBC (Bld) 0.3 % 0.0-0.5 [facility] Leukocytes [#/volume] correc margarita for nucleated erythrocytes in Blood by Automated counon 04-07-2024 WBC corrected for nucl RBC Auto (Bld) [#/Vol] 6.9 10 3/uL 4.0-11.0 [facility] Lymphocytes Auto (Bld) [#/Vo l]on 04-07-2024 Lymphocytes (Bld) [#/Vol] 2.3 10 3/uL 1.2-3.8 [facility] Lymphocytes/100 WBC Auto (Bl d)on 04-07-2024 Lymphocytes/100 WBC (Bld) 33.4 % 20.5-60.0 [facility] MCH Auto (RBC) [Entitic mass ]on 04-07-2024 MCH (RBC) [Entitic mass] 28.3 pg 26.7-34.0 [facility] MCHC Auto (RBC) [Mass/Vol]on 04-07-2024 MCHC (RBC) [Mass/Vol] 33.2 g/dL 29.9-35.2 [facility] MCV Auto (RBC) [Entitic vol] on 04-07-2024 MCV (RBC) [Entitic vol] 85.4 fL 81.0-99.0 [facility] Monocytes Auto (Bld) [#/Vol] on 04-07-2024 Monocytes (Bld) [#/Vol] 0.4 10 3/uL 0.3-0.8 [facility] Monocytes/100 WBC Auto (Bld) on 04-07-2024 Monocytes/100 WBC (Bld) 5.9 % 1.7-12.0 [facility] Neutrophils Auto (Bld) [#/Vo l]on 04-07-2024 Neutrophils (Bld) [#/Vol] 4.1 10 3/uL 1.4-6.5 [facility] Neutrophils/100 WBC Auto (Bl d)on 04-07-2024 Neutrophils/100 WBC (Bld) 58.6 % 43.0-75.0 [facility] No Panel Informationon 04-07 25-Hydroxy Vitamin D Total 44.4 ng/mL [facility] Comment on above: <20 ng/mL Vit D defi cient20-<30 ng/mL Vit D [id number] ng/mL Vit D sufficient>100 ng/mL Potential Toxicity Eosinophils # (Auto) 0.1 10 3/uL 0.0-0.7 [facility] Folate 23.60 ng/mL 8.60-58.90 [facility] Immature Granulocyte # (Auto) 0.02 10 3/uL 0.00-0.03 [facility] Parathyroid Hormone (Intact) 26 pg/mL 15-65 [facility] Comment on above: Performed at: [address] [id number] Director: Gonzalo Ott PhD, Phone: [phone] Platelet mean volume Auto (B ld) [Entitic vol]on 04-07-2024 Platelet mean volume (Bld) [Entitic vol] 13.4 fL 9.5-13.5 [facility] Platelets Auto (Bld) [#/Vol] on 04-07-2024 Platelets (Bld) [#/Vol] 243 10 3/uL 150-450 [facility] RBC Auto (Bld) [#/Vol]on RBC (Bld) [#/Vol] 4.94 10 6/uL 4.20-5.40 [facility] Serum or plasma albumin/glob ulin mass ratioon 04-07-2024 Albumin/Globulin [Mass ratio] 0.9 {ratio} [facility] Serum or plasma anion gap de terminationon 04-07-2024 Anion gap [Moles/Vol] 13.3 mmol/L [facility] Serum or plasma total choles terol/high density lipoprotein (HDL) cholesterol mass chico 04-07-2024 Cholesterol.total/Chol esterol in HDL [Mass ratio] 3.4 {ratio} [facility] Comment on above: 3.3 - 4.4 LOW RISK4. 4 - 7.1 AVERAGE RISK7.1 - 11.0 MODERATE RISK>11.0 HIGH RISK Automated epithelial cells c ount in urine sediment (number/area)on 03-03-2024 Epithelial cells Auto (Urine sed) [#/Area] RARE #/LPF NONE/RARE [facility] Bacteria [Presence] in Urine by Automatedon 03-03-2024 Bacteria Auto Ql (U) SMALL #/HPF NONE SEEN [facility] Bilirubin Auto test strip (U ) [Mass/Vol]on 03-03-2024 Bilirubin (U) [Mass/Vol] COLOR INTERFERENCE NEGATIVE [facility] Casts typing in urine sedime nt by light microscopyon 03-03-2024 Casts LM Nom (Urine sed) NONE SEEN #/LPF NONE SEEN [facility] - Chemistry and C hemistry - challengeon 03-03-2024 Ketones Ql (U) COLOR INTERFERENCE mg/dL NEGATIVE [facility] Specific gravity (U) [Rel density] 1.020 1.005-1.02 5 [facility] - Microbiology an d Antimicrobial susceptibilityOrdered By: Aleida Garcia on 03-03-2024 Bacteria identified Cx Nom (U) [facility] - Specimen inform ationon 03-03-2024 Appearance (U) CLOUDY CLEAR [facility] Color (U) DK. BROWN YELLOW [facility] - Urinalysison Leukocyte esterase Test strip Ql (U) COLOR INTERFERENCE NEGATIVE [facility] Nitrite Ql (U) COLOR INTERFERENCE NEGATIVE Fi [facility] Protein Ql (U) COLOR INTERFERENCE mg/dL NEG/TRACE [facility] Leukocytes [#/area] in Urine sediment by Automated counton 03-03-2024 WBC Auto (Urine sed) [#/Area] >100 #/HPF 0-2 [facility] Leukocytes [#/area] in Urine sediment by Microscopy high power fieldon 03-03-2024 WBC LM.HPF (Urine sed) [#/Area] 5-10 #/HPF NONE SEEN [facility] Mucus LM Ql (Urine sed)on Mucus Ql (Urine sed) NONE SEEN NONE SEEN [facility] No Panel Informationon 03-03 Urine Culture Reflexed YES [facility] Urine Glucose (UA) COLOR INTERFERENCE mg/dL NEGATIVE [facility] Urine Microscopic Review YES [facility] Urine pH COLOR INTERFERENCE 5.0-9.0 [facility] Urine Urobilinogen COLOR INTERFERENCE EU/dL 0.2-1.0 [facility] Urine hemoglobin detection b y automated test stripon 03-03-2024 Hemoglobin Auto test strip Ql (U) COLOR INTERFERENCE NEGATIVE [facility] Urine sediment crystal ident ification by light microscopyon 03-03-2024 Crystals LM Nom (Urine sed) None Seen #/HPF None Seen [facility] Basophils Auto (Bld) [#/Vol] on 02-05-2024 Basophils (Bld) [#/Vol] 0.0 10 3/uL 0.0-0.1 [facility] Basophils/100 WBC Auto (Bld) on 02-05-2024 Basophils/100 WBC (Bld) 0.5 % 0.2-2.0 [facility] Blood thiamine measurement ( moles/volume)on 02-05-2024 Thiamine (Bld) [Moles/Vol] 126.0 nmol/L 66.5-200.0 [facility] Comment on above: This test was develo ped and its performance characteristicsdetermined by [facility]. It has not been cleared orapproved by the Food and Drug Administration.Performed at: [address] [id number] Director: Argenis Reynolds MD, Phone: [phone] Cholesterol in LDL Calc [Mas s/Vol]on 02-05-2024 Cholesterol in LDL [Mass/Vol] 64.0 mg/dL [facility] Comment on above: <100 mg/dl [id number] 0-129 mg/dl NEAR OR ABOVE [id number] mg/dl BORDERLINE ATLK031-744 mg/dl HIGH>190 mg/dl VERY HIGH Cholesterol in VLDL Calc [Ma ss/Vol]on 02-05-2024 Cholesterol in VLDL [Mass/Vol] 38.6 mg/dL [facility] Eosinophils/100 WBC Auto (Bl d)on 02-05-2024 Eosinophils/100 WBC (Bld) 1.7 % 0.9-7.0 [facility] Erythrocyte distribution wid th Auto (RBC) [Ratio]on 02-05-2024 Erythrocyte distribution width (RBC) [Ratio] 13.6 % 11.0-15.0 [facility] Estimated glomerular filtrat ion rate (GFR) non- Americanon 02-05-2024 GFR/1.73 sq M.predicted among non-blacks MDRD (S/P/Bld) [Vol rate/Area] mL/min/{1.73_m2} >=60 [facility] Globulin Calc (S) [Mass/Vol] on 02-05-2024 Globulin (S) [Mass/Vol] 3.4 g/dL [facility] Glucose mean value [Mass/vol ume] in Blood Estimated from glycated hemoglobinon 02-05-2024 Average glucose Estimated from glycated hemoglobin (Bld) [Mass/Vol] 120 mg/dL [facility] Hematocrit Auto (Bld) [Volum e fraction]on 02-05-2024 Hematocrit (Bld) [Volume fraction] 41.0 % 36.0-48.0 [facility] Hemoglobin [Mass/volume] in Bloodon 02-05-2024 Hemoglobin (Bld) [Mass/Vol] 13.1 g/dL 12.0-16.0 [facility] - Chemistry and C hemistry - challengeon 02-05-2024 Albumin [Mass/Vol] 3.2 g/dL 3.4-5.0 [facility] ALP [Catalytic activity/Vol] 67 U/L 46-116 [facility] ALT [Catalytic activity/Vol] 18 U/L 14-59 [facility] AST [Catalytic activity/Vol] 11 U/L 15-37 [facility] Bilirubin [Mass/Vol] 0.6 mg/dL 0.2-1.0 [facility] Bilirubin.direct [Mass/Vol] 0.2 mg/dL 0.0-0.2 [facility] Calcium [Mass/Vol] 9.3 mg/dL 8.5-10.1 [facility] Chloride [Moles/Vol] 107 mmol/L 98-107 [facility] Cholesterol [Mass/Vol] 146 mg/dL <=200 [facility] Cholesterol in HDL [Mass/Vol] 44 mg/dL 40-60 [facility] Comment on above: > or =60 mg/dl - LOW CARDIOVASCULAR RISK<40 mg/dl - HIGH CARDIOVASCULAR RISK CO2 [Moles/Vol] 28.3 mmol/L 21.0-32.0 [facility] Cobalamin (Vitamin B12) [Mass/Vol] 668.0 pg/mL 193.0-986. 0 [facility] Creatinine [Mass/Vol] 0.77 mg/dL 0.55-1.02 [facility] GFR/1.73 sq M.predicted MDRD (S/P/Bld) [Vol rate/Area] mL/min/{1.73_m2} >=60 [facility] Glucose [Mass/Vol] 113 mg/dL 74-106 [facility] Iron [Mass/Vol] 68.0 ug/dL 50.0-170.0 [facility] Potassium [Moles/Vol] 3.1 mmol/L 3.5-5.1 [facility] Protein [Mass/Vol] 6.6 g/dL 6.4-8.2 [facility] Sodium [Moles/Vol] 144 mmol/L 136-145 [facility] Triglyceride [Mass/Vol] 193 mg/dL <=150 [facility] Urea nitrogen [Mass/Vol] 20.0 mg/dL 7.0-18.0 [facility] Urea nitrogen/Creatinine [Mass ratio] 26.0 mg/mg [facility] - Hematology and Cell countson 02-05-2024 HbA1c (Bld) [Mass fraction] 5.8 % 4.5-6.2 [facility] Comment on above: ADA RECOMMENDED LIMI T 4.0 - 6.0ADA THERAPEUTIC TARGET < 7.0ACTION SUGGESTED> 7.0 Immature granulocytes/100 WBC (Bld) 0.3 % 0.0-0.5 [facility] Leukocytes [#/volume] correc margarita for nucleated erythrocytes in Blood by Automated counon 02-05-2024 WBC corrected for nucl RBC Auto (Bld) [#/Vol] 6.1 10 3/uL 4.0-11.0 [facility] Lymphocytes Auto (Bld) [#/Vo l]on 02-05-2024 Lymphocytes (Bld) [#/Vol] 1.9 10 3/uL 1.2-3.8 [facility] Lymphocytes/100 WBC Auto (Bl d)on 02-05-2024 Lymphocytes/100 WBC (Bld) 31.7 % 20.5-60.0 [facility] MCH Auto (RBC) [Entitic mass ]on 02-05-2024 MCH (RBC) [Entitic mass] 28.2 pg 26.7-34.0 [facility] MCHC Auto (RBC) [Mass/Vol]on 02-05-2024 MCHC (RBC) [Mass/Vol] 32.0 g/dL 29.9-35.2 [facility] MCV Auto (RBC) [Entitic vol] on 02-05-2024 MCV (RBC) [Entitic vol] 88.2 fL 81.0-99.0 [facility] Monocytes Auto (Bld) [#/Vol] on 02-05-2024 Monocytes (Bld) [#/Vol] 0.3 10 3/uL 0.3-0.8 [facility] Monocytes/100 WBC Auto (Bld) on 02-05-2024 Monocytes/100 WBC (Bld) 5.0 % 1.7-12.0 [facility] Neutrophils Auto (Bld) [#/Vo l]on 02-05-2024 Neutrophils (Bld) [#/Vol] 3.7 10 3/uL 1.4-6.5 [facility] Neutrophils/100 WBC Auto (Bl d)on 02-05-2024 Neutrophils/100 WBC (Bld) 60.8 % 43.0-75.0 [facility] No Panel Informationon 02-04 25-Hydroxy Vitamin D Total 45.5 ng/mL [facility] Comment on above: <20 ng/mL Vit D defi cient20-<30 ng/mL Vit D xsigcfegjlet96-538 ng/mL Vit D sufficient>100 ng/mL Potential Toxicity Eosinophils # (Auto) 0.1 10 3/uL 0.0-0.7 [facility] Folate 22.50 ng/mL 8.60-58.90 [facility] Immature Granulocyte # (Auto) 0.02 10 3/uL 0.00-0.03 [facility] Platelet mean volume Auto (B ld) [Entitic vol]on 02-05-2024 Platelet mean volume (Bld) [Entitic vol] 12.9 fL 9.5-13.5 [facility] Platelets Auto (Bld) [#/Vol] on 02-05-2024 Platelets (Bld) [#/Vol] 231 10 3/uL 150-450 [facility] RBC Auto (Bld) [#/Vol]on RBC (Bld) [#/Vol] 4.65 10 6/uL 4.20-5.40 [facility] Serum or plasma albumin/glob ulin mass ratioon 02-05-2024 Albumin/Globulin [Mass ratio] 0.9 {ratio} [facility] Serum or plasma anion gap de terminationon 02-05-2024 Anion gap [Moles/Vol] 11.8 mmol/L [facility] Serum or plasma total choles terol/high density lipoprotein (HDL) cholesterol mass chico 02-05-2024 Cholesterol.total/Chol esterol in HDL [Mass ratio] 3.3 {ratio} [facility] Comment on above: 3.3 - 4.4 LOW RISK4. 4 - 7.1 AVERAGE RISK7.1 - 11.0 MODERATE RISK>11.0 HIGH RISK CREATININEon 11-21-2023 Creatinine [Mass/Vol] 0.83 mg/dL Normal 0.40-1.00 [facility] Comment on above: Result Comment: METH OD TRACEABLE TO IDMS STANDARD Performed By: #### C BCA, CMP, FEPR, PINR, 49323-5, 2276-4, 2284-8, 2132-9, 25934-3 #### [facility] ([id number]) [address] [facility], [address] [address] GFR/1.73 sq M.predicted among non-blacks MDRD (S/P/Bld) [Vol rate/Area] 83 mL/min/{1.73_m2} Normal >59 [facility] Comment on above: Result Comment: Reported eGFR is based on the CKD-EPI 2020 equation that does not use a race coefficient. Performed By: #### C BCA, CMP, FEPR, PINR, 62942-7, 2276-4, 2284-8, 2-9, 27065-0 #### [facility] ([id number]) [address], [address] [place] [address] HGB AND HCTon 11-21-2023 Hematocrit (Bld) [Volume fraction] 38.1 % Normal 35-47 [facility] Comment on above: Performed By: #### C BCA, CMP, FEPR, PINR, 02201-1, 2276-4, 2284-8, 2132-9, 84441-2 #### [facility] ([id number]) [address] [facility], [address] [place] [address] Hemoglobin (Bld) [Mass/Vol] 12.8 g/dL Normal 11.7-15.5 [facility] Comment on above: Performed By: #### C BCA, CMP, FEPR, PINR, 82192-5, 2276-4, 2284-8, 2132-9, 97322-6 #### [facility] ([id number]) [address], [address] [place] [address] PLATELET COUNT AND MPVon Platelet mean volume (Bld) [Entitic vol] 10.8 fL Normal 7-12 [facility] Comment on above: Performed By: #### C BCA, CMP, FEPR, PINR, 62753-8, 2276-4, 2284-8, 2131-9, 58683-7 #### [facility] ([id number]) [address], [address] [place] [address] Platelets (Bld) [#/Vol] 262 10*3/uL Normal 150-450 [facility] Comment on above: Performed By: #### C BCA, CMP, FEPR, PINR, 33769-5, 2276-4, 2284-8, 2131-9, 11127-8 #### [facility] ([id number]) [address], [address] [place] [address] XR CHEST 2 VWSon 11-13-2023 XR CHEST [...] [place] MD on 11/13/2023 11:33 AM Normal [facility] APTTon 11-06-2023 aPTT Coag (PPP) [Time] 35 s Pr [facility] CBC AND AUTO DIFFon 11-06-19 24 ABSOLUTE BASOPHIL 0.0 X10E9/L Normal 0.0-0.2 [facility] Comment on above: Performed By: #### C BCA, CMP, FEPR, PINR, 85857-6, 2276-4, 2284-8, 2131-9, 09391-5 #### [facility] ([id number]) [address], [address] [place] [address] ABSOLUTE NEUTROPHIL 4.9 X10E9/L Normal 1.5-6.6 [facility] Comment on above: Performed By: #### C BCA, CMP, FEPR, PINR, 02080-9, 2276-4, 2284-8, 2131-9, 66338-2 #### [facility] ([id number]) [address], [address] [place] [address] Basophils/100 WBC (Bld) 0.5 % Normal [facility] Comment on above: Performed By: #### C BCA, CMP, FEPR, PINR, 10060-8, 2276-4, 2284-8, 2131-9, 93892-0 #### [facility] ([id number]) [address], [address] [place] [address] Eosinophils (Bld) [#/Vol] 0.1 10*3/uL Normal 0.0-0.4 [facility] Comment on above: Performed By: #### C BCA, CMP, FEPR, PINR, 87229-3, 2276-4, 2284-8, 2131-9, 81173-1 #### [facility] ([id number]) [address], [address] [place] [address] Eosinophils/100 WBC (Bld) 1.3 % Normal [facility] Comment on above: Performed By: #### C BCA, CMP, FEPR, PINR, 12110-0, 2276-4, 2284-8, 2131-9, 53260-5 #### [facility] ([id number]) [address], [address] [place] [address] Erythrocyte distribution width (RBC) [Ratio] 13.8 % Normal 11.5-15.0 [facility] Comment on above: Performed By: #### C BCA, CMP, FEPR, PINR, 95243-9, 2276-4, 2284-8, 2132-9, 68994-4 #### [facility] ([id number]) [address], [address] [place] [address] Hematocrit (Bld) [Volume fraction] 39.8 % Normal 35-47 [facility] Comment on above: Performed By: #### C BCA, CMP, FEPR, PINR, 86184-6, 2276-4, 2284-8, 2132-9, 69504-1 #### [facility] ([id number]) [address] [address] [place] [address] Hemoglobin (Bld) [Mass/Vol] 13.4 g/dL Normal 11.7-15.5 [facility] Comment on above: Performed By: #### C BCA, CMP, FEPR, PINR, 92665-4, 2276-4, 2284-8, 2-9, 73258-9 #### [facility] ([id number]) [address], [facility] [address] [place] [address] Lymphocytes (Bld) [#/Vol] 2.0 10*3/uL Normal 1.0-3.5 [facility] Comment on above: Performed By: #### C BCA, CMP, FEPR, PINR, 95821-4, 2276-4, 2284-8, 2132-9, 63236-5 #### [facility] ([id number]) [address] [address] [place] [address] Lymphocytes/100 WBC (Bld) 27.6 % Normal [facility] Comment on above: Performed By: #### C BCA, CMP, FEPR, PINR, 63712-6, 2276-4, 2284-8, 2132-9, 68435-1 #### [facility] ([id number]) [address], [address] [place] [address] MCH (RBC) [Entitic mass] 29.0 pg Normal 27-34 [facility] Comment on above: Performed By: #### C BCA, CMP, FEPR, PINR, 46232-3, 2276-4, 2284-8, 2132-9, 35055-3 #### [facility] ([id number]) [address], [address] [place] [address] MCHC (RBC) [Mass/Vol] 33.7 g/dL Normal 32-36 [facility] Comment on above: Performed By: #### C BCA, CMP, FEPR, PINR, 90938-0, 2276-4, 2284-8, 2132-9, 60454-6 #### [facility] ([id number]) [address], [address] [place] [address] MCV (RBC) [Entitic vol] 86 fL Normal 80-100 [facility] Comment on above: Performed By: #### C BCA, CMP, FEPR, PINR, 18390-7, 2276-4, 2284-8, 2132-9, 54951-6 #### [facility] ([id number]) [address], [address] [place] [address] Monocytes (Bld) [#/Vol] 0.4 10*3/uL Normal 0-0.9 [facility] Comment on above: Performed By: #### C BCA, CMP, FEPR, PINR, 59221-9, 2276-4, 2284-8, 2132-9, 34283-9 #### [facility] ([id number]) [address], [address] [place] [address] Monocytes/100 WBC (Bld) 4.8 % Normal [facility] Comment on above: Performed By: #### C BCA, CMP, FEPR, PINR, 19804-7, 2276-4, 2284-8, 2132-9, 87969-3 #### [facility] ([id number]) [address], [address] [place] [address] Neutrophils/100 WBC (Bld) 65.8 % Normal [facility] Comment on above: Performed By: #### C BCA, CMP, FEPR, PINR, 61502-7, 2276-4, 2284-8, 2131-9, 87599-6 #### [facility] ([id number]) [address], [facility] [address] [place] [address] Platelet mean volume (Bld) [Entitic vol] 10.3 fL Normal 7-12 [facility] Comment on above: Performed By: #### C BCA, CMP, FEPR, PINR, 23404-2, 2276-4, 2284-8, 2131-9, 06852-1 #### [facility] ([id number]) [address] [address] [place] [address] Platelets (Bld) [#/Vol] 248 10*3/uL Normal 150-450 [facility] Comment on above: Performed By: #### C BCA, CMP, FEPR, PINR, 55333-7, 2276-4, 2284-8, 2131-9, 43540-4 #### [facility] ([id number]) [address], [facility] [address] [place] [address] RBC COUNT 4.62 X10E12/L Normal 3.80-5.20 [facility] Comment on above: Performed By: #### C BCA, CMP, FEPR, PINR, 95833-9, 2276-4, 2284-8, 2-9, 53701-6 #### [facility] ([id number]) [address] [address] [place] [address] WBC (Bld) [#/Vol] 7.4 10*3/uL Normal 4.0-11.0 [facility] Comment on above: Performed By: #### C BCA, CMP, FEPR, PINR, 02784-7, 2276-4, 2284-8, 2132-9, 18153-8 #### [facility] ([id number]) [address] [facility], [address] [place] [address] CBC auto differentialon 10-28 Basophils (Bld) [#/Vol] 0.0 10*3/uL [facility] Basophils/100 WBC (Bld) 0.5 % [facility] Eosinophils (Bld) [#/Vol] 0.1 10*3/uL [facility] Eosinophils/100 WBC (Bld) 1.3 % [facility] Erythrocyte distribution width (RBC) [Ratio] 13.8 % 11.5 - 15.0 % [facility] Hematocrit (Bld) [Volume fraction] 39.8 % 35 - 47 % [facility] Hemoglobin (Bld) [Mass/Vol] 13.4 g/dL 11.7 - 15.5 g/dL [facility] Lymphocytes (Bld) [#/Vol] 2.0 10*3/uL [facility] Lymphocytes/100 WBC (Bld) 27.6 % [facility] MCH (RBC) [Entitic mass] 29.0 pg 27 - 34 pg [facility] MCHC (RBC) [Mass/Vol] 33.7 g/dL 32 - 3 6 g/dL [facility] MCV (RBC) [Entitic vol] 86 fL 80 - 100 fL [facility] Monocytes (Bld) [#/Vol] 0.4 10*3/uL [facility] Monocytes/100 WBC (Bld) 4.8 % [facility] Neutrophils (Bld) [#/Vol] 4.9 10*3/uL [facility] Neutrophils/100 WBC (Bld) 65.8 % [facility] Platelet mean volume (Bld) [Entitic vol] 10.3 fL 7 - 12 fL [facility] Platelets (Bld) [#/Vol] 248 10*3/uL [facility] RBC (Bld) [#/Vol] 4.62 10*6/uL [facility] WBC corrected for nucl RBC Auto (Bld) [#/Vol] 7.4 [facility] COMPREHENSIVE METABOLIC PANE Josue 11-06-2023 Albumin [Mass/Vol] 4.3 g/dL Normal 3.2-5.3 [facility] Comment on above: Performed By: #### C BCA, CMP, FEPR, PINR, 16854-8, 2276-4, 2284-8, 2132-9, 38423-2 #### [facility] ([id number]) [address], [address] [place] [address] ALP [Catalytic activity/Vol] 61 U/L Normal 39-130 [facility] Comment on above: Performed By: #### C BCA, CMP, FEPR, PINR, 27696-3, 2276-4, 2284-8, 2132-9, 91568-9 #### [facility] ([id number]) [address], [address] [place] [address] ALT [Catalytic activity/Vol] 19 U/L Normal 0-31 [facility] Comment on above: Performed By: #### C BCA, CMP, FEPR, PINR, 37694-3, 2276-4, 2284-8, 2132-9, 99808-4 #### [facility] ([id number]) [address], [address] [place] [address] Anion gap [Moles/Vol] 9 mmol/L Normal 5-15 [facility] Comment on above: Performed By: #### C BCA, CMP, FEPR, PINR, 21950-3, 2276-4, 2284-8, 2132-9, 46765-3 #### [facility] ([id number]) [address], [address] [place] [address] AST [Catalytic activity/Vol] 16 U/L Normal 0-41 [facility] Comment on above: Performed By: #### C BCA, CMP, FEPR, PINR, 07662-4, 2276-4, 2284-8, 2132-9, 39055-9 #### [facility] ([id number]) [address], [address] [place] [address] Bilirubin [Mass/Vol] 0.4 mg/dL Normal 0.3-1.2 [facility] Comment on above: Performed By: #### C BCA, CMP, FEPR, PINR, 60247-2, 2276-4, 2284-8, 2132-9, 84561-0 #### [facility] ([id number]) [address], [address] [place] [address] Calcium [Mass/Vol] 9.6 mg/dL Normal 8.5-10.5 [facility] Comment on above: Performed By: #### C BCA, CMP, FEPR, PINR, 88425-0, 2276-4, 2284-8, 2131-9, 76571-7 #### [facility] ([id number]) [address], [address] [place] [address] Chloride [Moles/Vol] 101 mmol/L Normal 98-109 [facility] Comment on above: Performed By: #### C BCA, CMP, FEPR, PINR, 94286-4, 2276-4, 2284-8, 2131-9, 65668-8 #### [facility] ([id number]) [address], [address] [place] [address] CO2 [Moles/Vol] 30 mmol/L Normal 22-32 [facility] Comment on above: Performed By: #### C BCA, CMP, FEPR, PINR, 25709-0, 2276-4, 2284-8, 2132-9, 78680-0 #### [facility] ([id number]) [address], [address] [place] [address] Creatinine [Mass/Vol] 0.71 mg/dL Normal 0.40-1.00 [facility] Comment on above: Result Comment: METH OD TRACEABLE TO IDMS STANDARD Performed By: #### C BCA, CMP, FEPR, PINR, 18216-1, 2276-4, 2284-8, 2132-9, 34343-6 #### [facility] ([id number]) [address], [address] [place] [address] eGFR (CKD-EPI) NON-RACE DEPENDENT >90 Normal >59 [facility] Comment on above: Result Comment: Reported eGFR is based on the CKD-EPI 2020 equation that does not use a race coefficient. Performed By: #### C BCA, CMP, FEPR, PINR, 11523-1, 2276-4, 2284-8, 2132-9, 04421-4 #### [facility] ([id number]) [address], [address] [place] [address] Glucose [Mass/Vol] 108 mg/dL High 65-99 [facility] Comment on above: Performed By: #### C BCA, CMP, FEPR, PINR, 05000-7, 2276-4, 2284-8, 2132-9, 64225-2 #### [facility] ([id number]) [address] [facility], [address] [place] [address] Potassium [Moles/Vol] 4.6 mmol/L Normal 3.5-5.0 [facility] Comment on above: Performed By: #### C BCA, CMP, FEPR, PINR, 40486-2, 2276-4, 2284-8, 2132-9, 66212-9 #### [facility] ([id number]) [address], [address] [place] [address] Protein [Mass/Vol] 7.5 g/dL Normal 6.0-8.0 [facility] Comment on above: Performed By: #### C BCA, CMP, FEPR, PINR, 61704-7, 2276-4, 2284-8, 2132-9, 03678-9 #### [facility] ([id number]) [address], [address] [place] [address] Sodium [Moles/Vol] 140 mmol/L Normal 134-146 [facility] Comment on above: Performed By: #### C BCA, CMP, FEPR, PINR, 93519-8, 2276-4, 2284-8, 2131-9, 86277-6 #### [facility] ([id number]) [address], [address] [place] [address] Urea nitrogen [Mass/Vol] 22 mg/dL Normal 5-23 [facility] Comment on above: Performed By: #### C BCA, CMP, FEPR, PINR, 20069-2, 2276-4, 2284-8, 2131-9, 03046-1 #### [facility] ([id number]) [address], [address] [place] [address] Cobalamin (Vitamin B12) [Mas s/Vol]on 11-06-2023 [facility] Comprehensive metabolic pane josue 11-06-2023 Albumin [Mass/Vol] 4.3 g/dL 3.2 - 5.3 g/dL [facility] ALP [Catalytic activity/Vol] 61 U/L 39 - 130 U/L [facility] ALT No additional P-5'-P [Catalytic activity/Vol] 19 U/L 0 - 31 U/L [facility] Anion gap [Moles/Vol] 9 mmol/L 5 - 15 mmol/L [facility] AST [Catalytic activity/Vol] 16 U/L 0 - 41 U/L [facility] Bilirubin [Mass/Vol] 0.4 mg/dL 0.3 - 1 .2 mg/dL [facility] Calcium [Mass/Vol] 9.6 mg/dL 8.5 - 10. 5 mg/dL [facility] Chloride [Moles/Vol] 101 mmol/L 98 - 10 9 mmol/L [facility] CO2 [Moles/Vol] 30 mmol/L 22 - 32 mmol/L [facility] Creatinine [Mass/Vol] 0.71 mg/dL 0.40 - 1.00 mg/dL [facility] Comment on above: METHOD TRACEABLE TO [facility] STANDARD eGFR (CKD-EPI)non-race dependent - PINF [facility] Comment on above: Reported eGFR is based on the CKD-EPI 2020 equation that does not use a race coefficient. Glucose [Mass/Vol] 108 mg/dL High 65 - 99 mg/dL [facility] Interpretation and review of laboratory results Abnormal [facility] Potassium [Moles/Vol] 4.6 mmol/L 3.5 - 5.0 mmol/L [facility] Protein [Mass/Vol] 7.5 g/dL 6.0 - 8.0 g/dL [facility] Sodium [Moles/Vol] 140 mmol/L 134 - 146 mmol/L [facility] Urea nitrogen [Mass/Vol] 22 mg/dL 5 - 23 mg/dL [facility] ECG 12 leadon 11-06-2023 TRACEMASTERVUE [facility] FERRITINon 11-06-2023 Ferritin [Mass/Vol] 189 ng/mL Normal 11-307 [facility] Comment on above: Performed By: #### C BCA, CMP, FEPR, PINR, 06273-3, 2276-4, 2284-8, 2132-9, 72582-1 #### [facility] ([id number]) [address] [place] [address], [facility] [address] [place] [address] Ferritinon 11-06-2023 Ferritin [Mass/Vol] 189 ng/mL 11 - 307 ng/mL [facility] Folateon 11-06-2023 Folate [Mass/Vol] ng/mL 5.8 - PINF ng/mL [facility] Comment on above: NEW REFERENCE RANGE Folate [Mass/Vol]on 11-06-19 24 [facility] FOLIC ACID >25.0 Normal >5.8 [facility] Comment on above: Result Comment: NEW REFERENCE RANGE Performed By: #### C BCA, CMP, FEPR, PINR, 20971-3, 2276-4, 2284-8, 2132-9, 52511-6 #### [facility] ([id number]) [address] [place] [address], [address] [place] [address] IRON PROFILEon 11-06-2023 Iron [Mass/Vol] 100 ug/dL Normal 50-170 [facility] Comment on above: Performed By: #### C BCA, CMP, FEPR, PINR, 29062-8, 2276-4, 2284-8, 2132-9, 94160-9 #### [facility] ([id number]) [address], [address] [place] [address] IRON BINDING 305 ug/dL Normal 250-425 [facility] Comment on above: Performed By: #### C BCA, CMP, FEPR, PINR, 86988-5, 2276-4, 2284-8, 2131-9, 95581-5 #### [facility] ([id number]) [address], [address] [place] [address] IRON SATURATION 33 % SATURATION Normal 15-50 [facility] Comment on above: Performed By: #### C BCA, CMP, FEPR, PINR, 61989-1, 2276-4, 2284-8, 213-9, 62351-4 #### [facility] ([id number]) [address], [address] [place] [address] Iron and TIBCon 11-06-2023 Iron [Mass/Vol] 100 ug/dL 50 - 170 ug/dL [facility] Iron binding capacity [Mass/Vol] 305 ug/dL 250 - 425 ug/dL [facility] Iron saturation [Mass fraction] 33 [facility] No Panel Informationon 11-06 [facility] PROTIME AND INRon 11-06-2023 INR Coag (PPP) [Relative time] 1.1 {INR} Normal 0.8-1.1 [facility] Comment on above: Performed By: #### C BCA, CMP, FEPR, PINR, 25407-6, 2276-4, 2284-8, 2132-9, 51845-3 #### [facility] ([id number]) [address] [facility], [address] [place] [address] PT Coag (PPP) [Time] 12.8 s Normal 9.8-13.2 [facility] Comment on above: Performed By: #### C BCA, CMP, FEPR, PINR, 87668-6, 2276-4, 2284-8, 2132-9, 80726-2 #### [facility] ([id number]) [address] [facility], [address] [place] [address] Protime & INRon 11-06-2023 INR Coag (PPP) [Relative time] 1.1 {INR} [facility] PT Coag (PPP) [Time] 12.8 s [facility] Thiamine (Bld) [Mass/Vol]on 11-06-2023 THIAMIN VITAMIN B1 See Below Normal [facility] Comment on above: Result Comment: [...] developed and its performance characteristics determined by [facility]'s Jose JLeon [facility] Pathology and Laboratory Medicine [place] ([facility]). It has not been cleared or approved by the FDA. -[facility] is regulated under CLIA as qualified to perform high-complexity testing. This test is used for clinical purposes. It should not be regarded as investigational or for research. Test Performed By: [facility] [employer] [address] [place] [address] School Bus Attendant: Alfredo Chu III, M.D. CLIA #[id number] Performed By: #### C BCA, CMP, FEPR, PINR, 73622-7, 2276-4, 2284-8, 2132-9, 61036-1 #### [facility] ([id number]) [address], [address] [place] [address] VITAMIN B12on 11-06-2023 Cobalamin (Vitamin B12) [Mass/Vol] 737 pg/mL Normal 180-914 [facility] Comment on above: Performed By: #### C BCA, CMP, FEPR, PINR, 31130-5, 2276-4, 2284-8, 2132-9, 65663-0 #### [facility] ([id number]) [address] [facility], [address] [place] [address] Vitamin B12on 11-06-2023 Cobalamin (Vitamin B12) [Mass/Vol] 737 pg/mL 180 - 914 pg/mL [facility] Vitamin D 25 hydroxyon 11-06 Vitamin D+Metabolites [Mass/Vol] 26.4 ng/mL Low 30 - 100 ng/mL [facility] Comment on above: Vitamin D status 25 [place] Vitamin D Deficiency <20 ng/mL Insufficiency 20-29 ng/mL Sufficiency 30-100 ng/mL Toxicity >100 ng/mL NOTE: A pediatric reference range has not been established by the anti tank missileman of this kit. The [place] [employer] recommends a Vitamin D level of = or >20ng/mL in infants and children. Vitamin D+Metabolites [Mass/ Vol]on 11-06-2023 Interpretation and review of laboratory results Abnormal [facility] VITAMIN D 25 HYD TOT 26.4 ng/mL Low 30-100 [facility] Comment on above: Result Comment: Vitamin D status 25 [place] Vitamin D Deficiency <20 ng/mL Insufficiency 20-29 ng/mL Sufficiency 30-100 ng/mL Toxicity >100 ng/mL NOTE: A pediatric reference range has not been established by the anti tank missileman of this kit. The [place] [employer] recommends a Vitamin D level of = or >20ng/mL in infants and children. Performed By: #### C BCA, CMP, FEPR, PINR, 74521-0, 2276-4, 2284-8, 2132-9, 17768-9 #### [facility] ([id number]) [address] [place] [address], [address] [place] [address] aPTT Coag (PPP) [Time]on aPTT Coag (Bld) [Time] 35 s Normal 26-37 [facility] Comment on above: Performed By: #### C BCA, CMP, FEPR, PINR, 36747-0, 2276-4, 2284-8, 2-9, 12488-8 #### [facility] ([id number]) [address] [place] [address], [address] [place] [address] Basic Metabolic Panelon 06-29 GFR/1.73 sq M.predicted MDRD (S/P/Bld) [Vol rate/Area] mL/min/{1.73_m2} Normal [facility] Comment on above: Order Comment: Reaso n for Exam Elevated cholesterol FASTING. JKW Performed By: #### B MP #### [facility] [address] [place], [place] [id number] [facility] Calcium [Mass/volume] in Ser um or PlasmaOrdered By: Terese Braxton on 07-25-2023 Calcium [Mass/Vol] 9.8 mg/dL Normal 8.6-10.3 [facility] Comment on above: Order Comment: Reaso n for Exam Elevated cholesterol FASTING. JKW Result Comment: PERF ORMED BY: [place] [address] PATHOLOGIST SALES AND SERVICE ENGINEER SILVINA MONTESINOS M.D. Performed By: #### B MP #### [facility] [address] Carbon dioxide, total [Moles /volume] in Serum or PlasmaOrdered By: Terese Braxton on 07-25-2023 CO2 [Moles/Vol] 28.6 mmol/L Normal 21.0-31.0 [facility] Comment on above: Order Comment: Reaso n for Exam Elevated cholesterol FASTING. JKW Performed By: #### B MP #### [facility] [address] [place] [address] [place] Chloride [Moles/volume] in S anh or PlasmaOrdered By: Terese Braxton on 07-25-2023 Chloride [Moles/Vol] 105 mmol/L Normal 98-107 [facility] Comment on above: Order Comment: Reaso n for Exam Elevated cholesterol FASTING. JKW Performed By: #### B MP #### [facility] [address] Creatinine [Mass/volume] in Serum or PlasmaOrdered By: Terese Braxton on 07-25-2023 Creatinine [Mass/Vol] 0.76 mg/dL Normal 0.60-1.20 [facility] Comment on above: Order Comment: Reaso n for Exam Elevated cholesterol FASTING. JKW Performed By: #### B MP #### [place] [address] [place] Glucose [Mass/volume] in Ser um or PlasmaOrdered By: Terese Braxton on 07-25-2023 Glucose [Mass/Vol] 120 mg/dL High 70-100 [facility] Comment on above: ADA recommended refe rence rangeRandom Glucose Reference Range is dependent on time and content of last meal. Glucose of more than 200 mg/dL in a nonstressed, ambulatory subject supports the diagnosis of Diabetes Mellitus. Order Comment: Reaso n for Exam Elevated cholesterol FASTING. JKW Result Comment: [place] om Glucose Reference Range is dependent on time and content of last meal. Glucose of more than 200 mg/dL in a nonstressed, ambulatory subject supports the diagnosis of Diabetes Mellitus. ADA recommended reference range Performed By: #### B MP #### [facility] [address] No Panel InformationOrdered By: Terese Braxton on 07-25-2023 Estimated GFR (CKD-EPI) > 60.0 mL/Min [facility] Creatinine Clearance (Chem N/A [facility] No Panel Informationon 07-25 > 60.0 Normal [facility] 250 DO Work Phone: 11.9\S\11.9 Normal 6.0-15.0 [facility] 250 DO Work Phone: 9.8\S\9.8 Normal 8.6-10.3 [facility] 250 DO Work Phone: Comment on above: PERFORMED BY:[facility] [place] [id number] MEDICAL DIRECTORSILVINA MONTESINOS M.D. 28.6\S\28.6 Normal 21.0-31.0 [facility] 250 DO Work Phone: 105\S\105 Normal 98-107 [facility] 250 DO Work Phone: 4.5\S\4.5 Normal 3.5-5.1 [facility] 250 DO Work Phone: 141\S\141 Normal 136-145 [facility] 250 DO Work Phone: 0.76\S\0.76 Normal 0.60-1.20 [facility] DO Work Phone: 19\S\19 Normal 7-25 [facility] DO Work Phone: 120\S\120 above high threshold 70-100 [facility] DO Work Phone: Comment on above: Random Glucose Refer ence Range is dependent on time and content of last meal. Glucose of more than 200 mg/dL in a nonstressed, ambulatory subject supports the diagnosis of Diabetes Mellitus. ADA recommended reference range Potassium [Moles/volume] in Serum or PlasmaOrdered By: Terese Braxton on 07-25-2023 Potassium [Moles/Vol] 4.5 mmol/L Normal 3.5-5.1 [facility] Comment on above: Order Comment: Reaso n for Exam Elevated cholesterol FASTING. JKW Performed By: #### B MP #### [facility] [address] Serum or plasma anion gap de terminationOrdered By: Terese Braxton on 07-25-2023 Anion gap [Moles/Vol] 11.9 mmol/L Normal 6.0-15.0 [facility] Comment on above: Order Comment: Reaso n for Exam Elevated cholesterol FASTING. JKW Performed By: #### B MP #### [address] Sodium [Moles/volume] in Ser um or PlasmaOrdered By: Terese Braxton on 07-25-2023 Sodium [Moles/Vol] 141 mmol/L Normal 136-145 [facility] Comment on above: Order Comment: Reaso n for Exam Elevated cholesterol FASTING. JKW Performed By: #### B MP #### [address] Urea nitrogen [Mass/volume] in Serum or PlasmaOrdered By: Terese Braxton on 07-25-2023 Urea nitrogen [Mass/Vol] 19 mg/dL Normal 7-25 [facility] Comment on above: Order Comment: Reaso n for Exam Elevated cholesterol FASTING. JKW Performed By: #### B MP #### [address] Cardiovasc Arrhythmia Result son 07-23-2023 Cardiovasc Arrhythmia Results Reason For Visit Reason for Visit: Holter Monitor: PAIGE is here for the application of a 48 hour Holter monitor. Ordering Physician: Dr. Terese Braxton MD Diagnosis: palps [facility] equipment agreement signed. PAIGE understands monitor is to be returned on: 07/25/2023 Monitor number [id number] applied. Holter monitor printed and placed on [...] Aug 01 2023 3:41PM EST (Author) Normal [facility] Office Visit (Cardiology)on 07-15-2023 Follow-up visit Diagnoses/Problems [...] 50.0-59.9, adult Basic Metabolic Panel; Status:Active; Requested for:[id number]; Hypertension Start: Lisinopril 40 MG Oral Tablet; TAKE 1 TABLET DAILY Morbid obesity with BMI of 50.0-59.9, adult Healthy Weight Tips; Status:Complete; Done: [id number] Some eating tips that can help you lose weight.; Status:Complete; Done: [id number] Palpitations Start: Magnesium Oxide 400 MG Oral Tablet; TAKE 1 TABLET TWICE DAILY IO EKG Electrocardiogram- 12 Lead; Status:Complete; Done: [id number] IO Holter Monitor up to 48 Hrs; Status:Active - Perform Order; Requested for:[id number]; SocHx: Current every day smoker You need to quit smoking.; Status:Complete; Done: [id number] Tobacco Use Screening; Status:Complete; Done: [id number] Patient Instructions Please bring all medicines, vitamins, [...] Scheduled for bariatric surgery next month in [place], going through different aspects of work-up. Has [...] normal-sized aort (more content not included)... Normal [facility] Tobacco Screening.on [address] [facility] a) Yes -[facility] 250 DO Work Phone: Tobacco Screening. Yes [facility] 250 DO Work Phone: XR elbow RT min 3V*on 2022 XR elbow RT min 3V* [facility] Fast FiBR Other XR elbow RT min 3V* [facility] Fast [employer] Other XR elbow RT min 3V* [address] [place] [address] Fast FiBR Other XR elbow RT min 3V* PAIGE Velasquez [address] [id number] Other XR elbow RT min 3V* XRay Report [place] Other XR elbow RT min 3V* Signed [id number] Other XR elbow RT min 3V* Patient: Paige Mccarty MR#: [id number] [id number] Other XR elbow RT min 3V* : 1965 Acct:[id number] NUMBER26 Other XR elbow RT min 3V* Age/Sex: 58 / F ADM Date: 04/23/23 [id number] Other XR elbow RT min 3V* Loc: [facility] Room: [facility] e: [facility] [id number] Other XR elbow RT min 3V* Attending Dr: Awais Bright DO [id number] Other XR elbow RT min 3V* Copies to: Awais Bright, [id number] Other XR elbow RT min 3V* Ordering Provider: Deshawn Bright DO [id number] Other XR elbow RT min 3V* Date of Service: 04/23/23 [id number] Other XR elbow RT min 3V* XR/XR elbow RT min 3V*: Fall with injury [id number] Other XR elbow RT min 3V* 4 views RIGHTelbow plain film [id number] Other XR elbow RT min 3V* COMPARISON :None [id number] Other XR elbow RT min 3V* HISTORY: Fell 2 elieser hs ago. Medial RIGHT elbow pain [id number] Other XR elbow RT min 3V* ACUTE FINDINGS: None [id number] Other XR elbow RT min 3V* DEGENERATIVE CHANGE: Unremarkable [id number] Other XR elbow RT min 3V* SOFT TISSUE FINDINGS : 3 mm soft tissue radiodensity near the olecranon present. This likely NUMBER26 Other XR elbow RT min 3V* incidental. Nort R[place] Other XR elbow RT min 3V* JOINT EFFUSION: None [id number] Other XR elbow RT min 3V* POSTOP CHANGES: None [id number] Other XR elbow RT min 3V* BONE MINERALIZATION: Adequate [id number] Other XR elbow RT min 3V* XR/XR elbow RT min 3V* [id number] Other XR elbow RT min 3V* IMPRESSION: No acute fracture. [id number] Other XR elbow RT min 3V* Impression dictated by: Bishnu Correia M.D.04/23/2023 1:33 PM [id number] Other XR elbow RT min 3V* Dictation Location: [place] [address] [id number] Other XR elbow RT min 3V* Transcribed By: PWS 04/23/23 1333 [id number] Other XR elbow RT min 3V* Dictated By: Bishnu Correia DO 04/23/23 1325 [id number] Other XR elbow RT min 3V* Signed By: [id number] Other XR elbow RT min 3V* 04/23/23 1333 No rtRaiing Other XR elbow RT min 3V* [facility] [place] [address] [place] [address] XRay Report Signed Patient: Paige Mccarty MR#: [id number] : 1965 Acct:[id number] Age/Sex: 58 / F ADM Date: 04/23/23 [facility]: Type: [facility] Attending Dr: Awais Bright DO Copies to: [...] Bishnu Correia M.D.04/23/2023 1:33 PM Dictation Location: [place] [address] Transcribed By: [facility] 04/23/23 1333 Dictated By: Bishnu Correia DO 04/23/23 1325 Signed By: 04/23/23 1333 Normal [facility] Alanine aminotransferase [En zymatic activity/volume] in Serum or PlasmaOrdered By: Awais Bright on 04-15-2023 ALT [Catalytic activity/Vol] 16 U/L 7-52 [facility] Albumin [Mass/volume] in Ser um or Plasma by Bromocresol green (BCG) dye binding methoOrdered By: Awais Bright on 04-15-2023 Albumin BCG dye [Mass/Vol] 4.1 g/dL 3.5-5.7 [facility] Alkaline phosphatase [Enzyma tic activity/volume] in Serum or PlasmaOrdered By: Awais Bright on 04-15-2023 ALP [Catalytic activity/Vol] 59 U/L 34-104 [facility] Aspartate aminotransferase [ Enzymatic activity/volume] in Serum or PlasmaOrdered By: Awais Bright on 04-15-2023 AST [Catalytic activity/Vol] 14 U/L 13-39 [facility] Basophils Auto (Bld) [#/Vol] Ordered By: Awais Bright on 04-15-2023 Basophils (Bld) [#/Vol] 0.0 10*3/uL 0.0-0.2 [facility] Basophils/100 WBC Auto (Bld) Ordered By: Awais Bright on 04-15-2023 Basophils/100 WBC (Bld) 0.6 % . [facility] Bilirubin.direct [Mass/volum e] in Serum or PlasmaOrdered By: Awais Bright on 04-15-2023 Bilirubin.direct [Mass/Vol] 0.10 mg/dL 0.03-0.18 [facility] Bilirubin.total [Mass/volume ] in Serum or PlasmaOrdered By: Awais Bright on 04-15-2023 Bilirubin [Mass/Vol] 0.5 mg/dL 0.3-1.0 [facility] Blood thiamine measurement ( moles/volume)Ordered By: López Kidd on 04-15-2023 Thiamine (Bld) [Moles/Vol] 153.0 nmol/L 66.5-200.0 [facility] Comment on above: This test was develo ped and its performance characteristicsdetermined by [employer]. It has not been cleared orapproved by the Food and Drug Administration.Performed at: [facility] [id number] Director: Argenis Reynolds MD, Phone: [phone] Calcium [Mass/volume] in Ser um or PlasmaOrdered By: Awais Bright on 04-15-2023 Calcium [Mass/Vol] 9.6 mg/dL 8.6-10.3 [facility] Carbon dioxide, total [Moles /volume] in Serum or PlasmaOrdered By: Awais Bright on 04-15-2023 CO2 [Moles/Vol] 26.3 mmol/L 21.0-31.0 [facility] Chloride [Moles/volume] in S anh or PlasmaOrdered By: Awais Bright on 04-15-2023 Chloride [Moles/Vol] 104 mmol/L 98-107 [facility] Cholesterol [Mass/volume] in Serum or PlasmaOrdered By: Awais Bright on 04-15-2023 Cholesterol [Mass/Vol] 190 mg/dL 140-200 [facility] Comment on above: Chol less than 200 m g/dl low riskChol 201-239 mg/dl borderline riskChol 240 mg/dl and greater high risk Cholesterol in LDL Calc [Mas s/Vol]Ordered By: Awais Bright on 04-15-2023 Cholesterol in LDL [Mass/Vol] 109 mg/dL 0-100 [facility] Comment on above: LDL ATP III CLASSIFI CATIONLDL less than 100 mg/dL OptimalLDL 100-129 mg/dL Near or above optimalLDL 130-159 mg/dL Borderline highLDL 160-189 mg/dL HighLDL greater than 189 mg/dL Very high Cholesterol in VLDL Calc [Ma ss/Vol]Ordered By: Awais Bright on 04-15-2023 Cholesterol in VLDL [Mass/Vol] 32 mg/dL [facility] Creatinine [Mass/volume] in Serum or PlasmaOrdered By: Awais Bright on 04-15-2023 Creatinine [Mass/Vol] 0.75 mg/dL 0.60-1.20 [facility] Eosinophils Auto (Bld) [#/Vo l]Ordered By: Awais Bright on 04-15-2023 Eosinophils (Bld) [#/Vol] 0.1 10*3/uL 0.0-0.45 [facility] Eosinophils/100 WBC Auto (Bl d)Ordered By: Awais Bright on 04-15-2023 Eosinophils/100 WBC (Bld) 1.2 % . [facility] Erythrocyte distribution wid th Auto (RBC) [Ratio]Ordered By: Awais Bright on 04-15-2023 Erythrocyte distribution width (RBC) [Ratio] 13.8 % 11.9-15.3 [facility] Globulin Calc (S) [Mass/Vol] Ordered By: Awais Bright on 04-15-2023 Globulin (S) [Mass/Vol] 2.5 g/dL [facility] Glucose [Mass/volume] in Ser um or PlasmaOrdered By: Awais Bright on 04-15-2023 Glucose [Mass/Vol] 110 mg/dL 70-100 [facility] Comment on above: ADA recommended refe [...] from glycated hemoglobin (Bld) [Mass/Vol] 134 mg/dL [facility] Hematocrit Auto (Bld) [Volum e fraction]Ordered By: Awais Bright on 04-15-2023 Hematocrit (Bld) [Volume fraction] 40.8 % 34.0-46.4 [facility] Hemoglobin A1c percentageOrd ered By: Awais Bright on 04-15-2023 HbA1c (Bld) [Mass fraction] 6.3 % 4.3-5.6 [facility] Comment on above: Increased risk for d iabetes: 5.7 - 6.4diabetes: >6.4glycemic control for adults with diabetes: <7.0 Hemoglobin [Mass/volume] in BloodOrdered By: Awais Bright on 04-15-2023 Hemoglobin (Bld) [Mass/Vol] 13.6 g/dL 11.8-15.4 [facility] Iron [Mass/volume] in Serum or PlasmaOrdered By: López Kidd on 04-15-2023 Iron [Mass/Vol] 92 ug/dL 50-212 [facility] Leukocytes [#/volume] correc maragrita for nucleated erythrocytes in Blood by Automated counOrdered By: Awais Bright on 04-15-2023 WBC corrected for nucl RBC Auto (Bld) [#/Vol] 7.5 10*3/uL 3.8-11.6 [facility] Lymphocytes Auto (Bld) [#/Vo l]Ordered By: Awais Bright on 04-15-2023 Lymphocytes (Bld) [#/Vol] 1.9 10*3/uL 1.00-4.8 [facility] Lymphocytes/100 WBC Auto (Bl d)Ordered By: Awais Bright on 04-15-2023 Lymphocytes/100 WBC (Bld) 25.1 % . [facility] MCH Auto (RBC) [Entitic mass ]Ordered By: Awais Bright on 04-15-2023 MCH (RBC) [Entitic mass] 28.5 pg 24.7-34.3 [facility] MCHC Auto (RBC) [Mass/Vol]Or dered By: Awais Bright on 04-15-2023 MCHC (RBC) [Mass/Vol] 33.2 g/dL 32.0-35.0 [facility] MCV Auto (RBC) [Entitic vol] Ordered By: Awais Bright on 04-15-2023 MCV (RBC) [Entitic vol] 85.7 fL 80-100 [facility] Monocytes Auto (Bld) [#/Vol] Ordered By: Awais Bright on 04-15-2023 Monocytes (Bld) [#/Vol] 0.4 10*3/uL 0.0-0.8 [facility] Monocytes/100 WBC Auto (Bld) Ordered By: Awais Bright on 04-15-2023 Monocytes/100 WBC (Bld) 4.9 % . [facility] Neutrophils Auto (Bld) [#/Vo l]Ordered By: Awais Bright on 04-15-2023 Neutrophils (Bld) [#/Vol] 5.1 10*3/uL 1.8-7.7 [facility] Neutrophils/100 WBC Auto (Bl d)Ordered By: Awais Bright on 04-15-2023 Neutrophils/100 WBC (Bld) 68.2 % . [facility] No Panel InformationOrdered By: Awais Bright on 04-15-2023 Estimated GFR (CKD-EPI) > 60.0 mL/Min [facility] Creatinine Clearance (Chem N/A [facility] Nucleated erythrocytes [Pres ence] in Blood by Automated countOrdered By: Awais Bright on 04-15-2023 Nucleated RBC Auto Ql (Bld) 0.1 /100{WBC} 0-0.5 [facility] Parathyrin.intact [Mass/volu me] in Serum or PlasmaOrdered By: López Kidd on 04-15-2023 Parathyrin.intact [Mass/Vol] 31.3 pg/mL 12-88 [facility] Platelet mean volume Auto (B ld) [Entitic vol]Ordered By: Awais Bright on 04-15-2023 Platelet mean volume (Bld) [Entitic vol] 9.8 fL 6.3-10.7 [facility] Platelets Auto (Bld) [#/Vol] Ordered By: Awais Bright on 04-15-2023 Platelets (Bld) [#/Vol] 231 10*3/uL 150-450 [facility] Potassium [Moles/volume] in Serum or PlasmaOrdered By: Awais Bright on 04-15-2023 Potassium [Moles/Vol] 4.1 mmol/L 3.5-5.1 [facility] Protein [Mass/volume] in Ser um or PlasmaOrdered By: Awais Bright on 04-15-2023 Protein [Mass/Vol] 6.6 g/dL 6.4-8.9 [facility] RBC Auto (Bld) [#/Vol]Ordere d By: Awais Bright on 04-15-2023 RBC (Bld) [#/Vol] 4.76 10*6/uL 3.60-5.00 [facility] Serum or plasma albumin/glob ulin mass ratioOrdered By: Awais Bright on 04-15-2023 Albumin/Globulin [Mass ratio] 1.6 {ratio} [facility] Serum or plasma anion gap de terminationOrdered By: Awais Bright on 04-15-2023 Anion gap [Moles/Vol] 12.8 mmol/L 6.0-15.0 [facility] Serum or plasma high density lipoprotein (HDL) cholesterol measurementOrdered By: Awais Bright on 04-15-2023 Cholesterol in HDL [Mass/Vol] 49 mg/dL 23-92 [facility] Comment on above: HDL CHOL ATP-III CLA SSIFICATION Cardiovascular RiskHDL > or equal to 60 mg/dL LOWHDL < 40 mg/dL HIGH Serum or plasma non-glucuron idated bilirubin measurement (mass/volume)Ordered By: Awais Bright on 04-15-2023 Bilirubin.indirect [Mass/Vol] 0.4 mg/dL [facility] Serum or plasma total choles terol/high density lipoprotein (HDL) cholesterol mass ratOrdered By: Awais Bright on 04-15-2023 Cholesterol.total/Chol esterol in HDL [Mass ratio] 3.9 {ratio} <5.0 [facility] Sodium [Moles/volume] in Ser um or PlasmaOrdered By: Awais Bright on 04-15-2023 Sodium [Moles/Vol] 139 mmol/L 136-145 [facility] Thyrotropin [Units/volume] i n Serum or PlasmaOrdered By: López Kidd on 04-15-2023 TSH Qn 1.31 m[IU]/L 0.45-5.33 [facility] Triglyceride [Mass/volume] i n Serum or PlasmaOrdered By: Awais Bright on 04-15-2023 Triglyceride [Mass/Vol] 162 mg/dL 0-149 [facility] Comment on above: TRIG ATP III CLASSIF ICATIONTRIG less than 150 mg/dL NormalTRIG 150-199 mg/dL Borderline highTRIG 200-500 mg/dL High TRIG greater than 500 mg/dL Very highStandard traceable to the Center for Disease Conrtrol and Prevention (CDC) test method. Urea nitrogen [Mass/volume] in Serum or PlasmaOrdered By: Awais Bright on 04-15-2023 Urea nitrogen [Mass/Vol] 27 mg/dL 7-25 [facility] Vitamin B12 ser/plasOrdered By: López Kidd on 04-15-2023 Cobalamin (Vitamin B12) [Mass/Vol] 810 pg/mL 180-914 [facility] Vitamin D+Metabolites [Mass/ volume] in Serum or PlasmaOrdered By: López Kidd on 04-15-2023 Vitamin D+Metabolites [Mass/Vol] 25.1 ng/mL 30-100 [facility] Comment on above: VITAMIN D STATUS 25( [place])VITAMIN D RANGE (ng/mL) Deficient <20 Insufficient 20 to <30Sufficient 30 to 100Reference: Yasmany HIDALGO,Chelsy TORRES, Corina MAYER, et al. Evaluation,treatment, and prevention of vitamin D deficiency; an Endocrine Society clinical practice guideline. JCEM. 2010; 96(7):1911-30. WBC Auto (Bld) [#/Vol]Ordere d By: Awais Bright on 04-15-2023 WBC (Bld) [#/Vol] 7.5 10*3/uL 3.8-11.6 [facility] CARDIAC STRESS/REST INJE CTIONon 02-13-2023 [facility] CARDIAC STRESS/REST INJECTION Patient Name: PAIGE MCCARTY STUDY: MYOCARDIAL PERFUSION STRESS TEST WITH LEXISCAN Performing facility: [facility], [address] [place] [address], [address], [place] [address] [facility] Provider: Terese Braxton MD, [facility] PCP: Dr. Lisa Bright Supervising provider: Juan Sharp MD INDICATION: Abnormal EKG; Fatigue SOB HISTORY: Gender: F; Age: 57 y/o ; Height: 0 cm; Weight: 138.985598 kg. Abnormal EKG; High Cholesterol; HTN; SOB; Fatigue; Currently smoking. COMPARISON: No comparison. ACCESSION NUMBER(S): [id number]; [id number]; [id number] ORDERING CLINICIAN: TERESE BRAXTON TECHNIQUE: TWO DAY [...] Electronically signed by: JUAN SHARP MD Normal [facility] No Panel Informationon 02-13 Normal [facility] 250 DO Work Phone: Calcium [Mass/volume] in Ser um or PlasmaOrdered By: Terese Braxton on 01-25-2023 Calcium [Mass/Vol] 9.4 mg/dL 8.6-10.3 [facility] Carbon dioxide, total [Moles /volume] in Serum or PlasmaOrdered By: Terese Braxton on 01-25-2023 CO2 [Moles/Vol] 27.2 mmol/L 21.0-31.0 [facility] Chloride [Moles/volume] in S anh or PlasmaOrdered By: Terese Braxton on 01-25-2023 Chloride [Moles/Vol] 104 mmol/L 98-107 [facility] Creatinine [Mass/volume] in Serum or PlasmaOrdered By: Terese Braxton on 01-25-2023 Creatinine [Mass/Vol] 0.80 mg/dL 0.60-1.20 [facility] Glucose [Mass/volume] in Ser um or PlasmaOrdered By: Terese Braxton on 01-25-2023 Glucose [Mass/Vol] 134 mg/dL 70-100 [facility] Comment on above: ADA recommended refe rence rangeRandom Glucose Reference Range is dependent on time and content of last meal. Glucose of more than 200 mg/dL in a nonstressed, ambulatory subject supports the diagnosis of Diabetes Mellitus. No Panel InformationOrdered By: Terese Braxton on 01-25-2023 Estimated GFR (CKD-EPI) > 60.0 mL/Min [facility] Creatinine Clearance (Chem N/A [facility] No Panel Informationon 01-25 > 60.0 Normal [facility] 250 DO Work Phone: 10.9\S\10.9 Normal 6.0-15.0 [facility] 250 DO Work Phone: 9.4\S\9.4 Normal 8.6-10.3 [facility] 250 DO Work Phone: Comment on above: PERFORMED BY:[facility] [place], [place] [phone] MEDICAL DIRECTORSILVINA MONTESINOS M.D. 27.2\S\27.2 Normal 21.0-31.0 [facility] 250 DO Work Phone: 104\S\104 Normal 98-107 [facility] 250 DO Work Phone: 4.1\S\4.1 Normal 3.5-5.1 [facility] 250 DO Work Phone: 138\S\138 Normal 136-145 [facility] 250 DO Work Phone: 0.80\S\0.80 Normal 0.60-1.20 [facility] 250 DO Work Phone: 22\S\22 Normal 7-25 [facility] 250 DO Work Phone: 134\S\134 above high threshold 70-100 [facility] 250 DO Work Phone: Comment on above: Random Glucose Refer ence Range is dependent on time and content of last meal. Glucose of more than 200 mg/dL in a nonstressed, ambulatory subject supports the diagnosis of Diabetes Mellitus. ADA recommended reference range Potassium [Moles/volume] in Serum or PlasmaOrdered By: Terese Braxton on 01-25-2023 Potassium [Moles/Vol] 4.1 mmol/L 3.5-5.1 [facility] Serum or plasma anion gap de terminationOrdered By: Terese Braxton on 01-25-2023 Anion gap [Moles/Vol] 10.9 mmol/L 6.0-15.0 [facility] Sodium [Moles/volume] in Ser um or PlasmaOrdered By: Terese Braxton on 01-25-2023 Sodium [Moles/Vol] 138 mmol/L 136-145 [facility] Urea nitrogen [Mass/volume] in Serum or PlasmaOrdered By: Terese Braxton on 01-25-2023 Urea nitrogen [Mass/Vol] 22 mg/dL 7-25 [facility] Office Visit (Cardiology)on 01-21-2023 Follow-up visit [...] we can help. You may also call 7-084-QRHZ-NOW for free resources and assistance.; Status:Complete; Done: [...] for bariatric surgical options next week with [facility]. She is making effort to quit smoking. She is currently using vape pens with 0 nicotine. Primary MD increased hydrochlorothiazide. Blood pressure is still above target. She says she had a sleep study about a year ago, and was recommended CPAP. She is not using CPAP therapy she uses an vtme-dyr-vcqatat pill for diuresis, it actually does not [...] A1c 10/17 (more content not included)... Normal [facility] Tobacco Screening.on 023 Tobacco use status CPHS b) No -[facility] 250 DO Work Phone: Alanine aminotransferase [En zymatic activity/volume] in Serum or PlasmaOrdered By: Terese Braxton on 01-09-2023 ALT [Catalytic activity/Vol] 14 U/L 7-52 [facility] Aspartate aminotransferase [ Enzymatic activity/volume] in Serum or PlasmaOrdered By: Terese Braxton on 01-09-2023 AST [Catalytic activity/Vol] 14 U/L 13-39 [facility] Cholesterol [Mass/volume] in Serum or PlasmaOrdered By: Terese Braxton on 01-09-2023 Cholesterol [Mass/Vol] 161 mg/dL 140-200 [facility] Comment on above: Chol less than 200 m g/dl low riskChol 201-239 mg/dl borderline riskChol 240 mg/dl and greater high risk Cholesterol in LDL Calc [Mas s/Vol]Ordered By: Terese Braxton on 01-09-2023 Cholesterol in LDL [Mass/Vol] 77 mg/dL 0-100 [facility] Comment on above: LDL ATP III CLASSIFI CATIONLDL less than 100 mg/dL OptimalLDL 100-129 mg/dL Near or above optimalLDL 130-159 mg/dL Borderline highLDL 160-189 mg/dL HighLDL greater than 189 mg/dL Very high Cholesterol in VLDL Calc [Ma ss/Vol]Ordered By: Terese Braxton on 01-09-2023 Cholesterol in VLDL [Mass/Vol] 31 mg/dL [facility] Echocardiogramon 01-09-2023 Echocardiography [facility] [address] [place] [address], [address], [place] [address] TRANSTHORACIC ECHOCARDIOGRAM REPORT Patient Name: PAIGE MCCARTY Reading Physician: [id number] Juan Sharp MD Study Date: 01/09/2023 Referring Physician: TERESE BRAXTON MRN/PID: [id number] PCP: Awais Bright MD Accession/Order#: [id number] Department Location: [facility] Date of : 1965 Fellow: Gender: F Nurse: Jayme Odonnell RN Admit Date: Sat Tutor: Nat Saha RDCS, RVT Height: 157.48 cm CC Report to: Weight: 136.53 kg Study Type: Echocardiogram BSA: 2.27 m2 Diagnosis/ICD: R94.31-Abnormal electrocardiogram [ECG] [EKG]; R06.02-Shortness of breath Indication: HTN, Hyperlipidemia, Tobacco Abuse, Morbid Obesity, Clotting Disorder Procedure/CPT: Echo Complete w Full Doppler-[id number] Study Detail: The following Echo studies were [...] 0.9 m/s (0.6-0.9m/s) PV Max P.1 mmHg [id number] Juan Sharp MD Electronically signed on 01/09/2023 at 5:33:40 PM Final Normal [facility] Laboratory - Chemistry and C hemistry - challengeon 01-09-2023 Cholesterol [Mass/Vol] 161\S\161 Normal 140-200 [facility] 250 DO Work Phone: Comment on above: Chol less than 200 m g/dl low risk Chol 201-239 mg/dl borderline risk Chol 240 mg/dl and greater high risk Cholesterol in LDL [Mass/Vol] 77\S\77 Normal 0-100 [facility]! DO Work Phone: Comment on above: LDL ATP III CLASSIFI CATION LDL less than 100 mg/dL Optimal LDL 100-129 mg/dL Near or above optimal LDL 130-159 mg/dL Borderline high LDL 160-189 mg/dL High LDL greater than 189 mg/dL Very high Natriuretic peptide B [Mass/ Vol]Ordered By: Terese Braxton on 01-09-2023 Natriuretic peptide B (Bld) [Mass/Vol] 22.0 pg/mL 5-100 [facility] No Panel Informationon 01-09 14\S\14 Normal 7-52 [facility] 250 DO Work Phone: 3.0\S\3.0 Normal <5.0 [facility] 250 DO Work Phone: Comment on above: PERFORMED BY:[facility] [place], [place] [phone] MEDICAL DIRECTORSILVINA MONTESINOS M.D. 31\S\31 Normal [facility] 250 DO Work Phone: 156\S\156 above high threshold 0-149 [facility] 250 DO Work Phone: Comment on above: TRIG ATP III CLASSIF ICATION TRIG less than 150 mg/dL Normal TRIG 150-199 mg/dL Borderline high TRIG 200-500 mg/dL High TRIG greater than 500 mg/dL Very high Standard traceable to the Center for Disease Conrtrol and Prevention (CDC) test method. 53\S\53 Normal 35-85 [facility] 250 DO Work Phone: Comment on above: HDL CHOL ATP-III CLA SSIFICATION Cardiovascular Risk HDL > or equal to 60 mg/dL LOW HDL < 40 mg/dL HIGH 22.0\S\22.0 Normal 5-100 [facility] 250 DO Work Phone: Comment on above: PERFORMED BY:[place] [id number] [address] [place], [place] [phone] MEDICAL DIRECTORSILVINA MONTESINOS M.D. Serum or plasma high density lipoprotein (HDL) cholesterol measurementOrdered By: Terese Braxton on 01-09-2023 Cholesterol in HDL [Mass/Vol] 53 mg/dL 35-85 [facility] Comment on above: HDL CHOL ATP-III CLA SSIFICATION Cardiovascular RiskHDL > or equal to 60 mg/dL LOWHDL < 40 mg/dL HIGH Serum or plasma total choles terol/high density lipoprotein (HDL) cholesterol mass ratOrdered By: Terese Braxton on 01-09-2023 Cholesterol.total/Chol esterol in HDL [Mass ratio] 3.0 {ratio} <5.0 [facility] Triglyceride [Mass/volume] i n Serum or PlasmaOrdered By: Terese Braxton on 01-09-2023 Triglyceride [Mass/Vol] 156 mg/dL 0-149 [facility] Comment on above: TRIG ATP III [...] we can help. You may also call 0-967-ALWI-NOW for free resources and assistance.; Status:Complete; Done: [...] be evaluated in the emergency department at [place] she is on multiple inhalers. She reports [...] shows sinus rhythm at 86 bpm with AL interval of 170 ms QRS duration 96 [...] apparently mayer (more content not included)... Normal [facility] Tobacco Screening.on 023 Adult depression screening assessment No [facility] 250 DO Work Phone: Tobacco use status CPHS a) Yes [facility] 250 DO Work Phone: Tobacco Screening. Yes [facility] 250 DO Work Phone: Albumin [Mass/volume] in Ser um or PlasmaOrdered By: Awais Bright on 10-23-2022 Albumin [Mass/Vol] 3.6 g/dL 3.2-5.5 [facility] Basic Metabolic Panelon 09-28 Calcium [Mass/Vol] 9.8774918 mg/dL Normal 8.2-10 .2 mg/dL [id number] Other CO2 [Moles/Vol] 24.92005996 mmol/L Normal 22.0-3 0.0 mmol/L [facility] Other Creatinine [Mass/Vol] 0.89451363 mg/dL Normal 0. 44-1.03 mg/dL [id number] Other Potassium [Moles/Vol] 4.93456380 mmol/L Normal 3 .5-5.1 mmol/L [facility] Other Basic Metabolic Panel > 60 [facility] Other Basophils Auto (Bld) [#/Vol] Ordered By: Awais Bright on 10-23-2022 Basophils (Bld) [#/Vol] 0.1 10*3/uL 0.0-0.2 [facility] Basophils/100 WBC Auto (Bld) Ordered By: Awais Bright on 10-23-2022 Basophils/100 WBC (Bld) 0.6 % . [facility] Complete Blood Count Auto Di ffon 10-23-2022 Basophils (Bld) [#/Vol] 0.268567491 10*3/uL Normal 0.0-0.2 10*3/uL [facility] Other Basophils/100 WBC (Bld) 0.600 % . % [facility] Other Eosinophils (Bld) [#/Vol] 0.452854511 10*3/uL Normal 0.0-0.45 10*3/uL [facility] Other Eosinophils/100 WBC (Bld) 1.600 % . % [facility] Other Erythrocyte distribution width (RBC) [Ratio] 13.900 % Normal 11.9-15.3 % [facility] Other Hematocrit (Bld) [Volume fraction] 40.100 % Normal 34.0-46.4 % [facility] Other Hemoglobin (Bld) [Mass/Vol] 13.362513 g/dL Normal 11.8-15.4 g/dL [facility] Other Lymphocytes (Bld) [#/Vol] 2.501169868 10*3/uL Normal 1.00-4.8 10*3/uL [facility] Other Lymphocytes/100 WBC (Bld) 25.400 % . % [facility] Other MCH (RBC) [Entitic mass] 29.2000 pg Normal 24.7-34.3 pg [facility] Other MCV (RBC) [Entitic vol] 87.1000 fL Normal 80-100 fL [facility] Other Monocytes (Bld) [#/Vol] 0.764512070 10*3/uL Normal 0.0-0.8 10*3/uL [facility] Other Monocytes/100 WBC (Bld) 4.500 % . % [facility] Other Neutrophils (Bld) [#/Vol] 5.140388936 10*3/uL Normal 1.8-7.7 10*3/uL [facility] Other Neutrophils/100 WBC (Bld) 67.900 % . % [facility] Other Platelet mean volume (Bld) [Entitic vol] 9.6000 fL Normal 6.3-10.7 fL [facility] Other WBC (Bld) [#/Vol] 8.325940789 10*3/uL Normal 3.8 -11.6 10*3/uL [facility] Other Complete Blood Count Auto Diff 8.6 10*3/uL Normal 3.8-11.6 10*3/uL [facility] Other Complete Blood Count Auto Diff 33.5 g/dL Normal 32.0-35.0 g/dL [facility] Other Complete Blood Count Auto Diff 0.1 /100{WBC} Normal 0-0.5 /100{WBC} [facility] Other Creatinine and Glomerular fi ltration rate.predicted panel (S/P/Bld)Ordered By: Awais Bright on 10-23-2022 Creatinine [Mass/Vol] 0.77 mg/dL 0.44-1.03 [facility] Direct bilirubin measurement Ordered By: Awais Bright on 10-23-2022 Bilirubin.direct [Mass/Vol] 0.1 mg/dL 0.0-0.4 [facility] Eosinophils Auto (Bld) [#/Vo l]Ordered By: Awais Bright on 10-23-2022 Eosinophils (Bld) [#/Vol] 0.1 10*3/uL 0.0-0.45 [facility] Eosinophils/100 WBC Auto (Bl d)Ordered By: Awais Bright on 10-23-2022 Eosinophils/100 WBC (Bld) 1.6 % . [facility] Erythrocyte distribution wid th Auto (RBC) [Ratio]Ordered By: Awais Bright on 10-23-2022 Erythrocyte distribution width (RBC) [Ratio] 13.9 % 11.9-15.3 [facility] Erythrocytes [#/volume] in B lood by Automated countOrdered By: Awais Bright on 10-23-2022 RBC (Bld) [#/Vol] 4.60 10*6/uL 3.60-5.00 [facility] Estimated glomerular filtrat ion rate (GFR) non- AmericanOrdered By: Awais Bright on 10-23-2022 GFR/1.73 sq M.predicted among non-blacks MDRD (S/P/Bld) [Vol rate/Area] > 60 mL/Min [facility] Globulin Calc (S) [Mass/Vol] Ordered By: Awais Bright on 10-23-2022 Globulin (S) [Mass/Vol] 3.2 g/dL [facility] Hematocrit Auto (Bld) [Volum e fraction]Ordered By: Awais Bright on 10-23-2022 Hematocrit (Bld) [Volume fraction] 40.1 % 34.0-46.4 [facility] Hemoglobin [Mass/volume] in BloodOrdered By: Awais Bright on 10-23-2022 Hemoglobin (Bld) [Mass/Vol] 13.4 g/dL 11.8-15.4 [facility] Hepatic Panelon 10-23-2022 Albumin [Mass/Vol] 3.227415 g/dL Normal 3.2-5.5 g/dL [id number] Other ALT [Catalytic activity/Vol] 24 U/L Normal 10-60 U/L [facility] Other Bilirubin [Mass/Vol] 0.3783570 mg/dL Normal 0.3- 1.2 mg/dL [facility] Other Bilirubin.indirect [Mass/Vol] 0.9291779 mg/dL Normal 0.0-0.4 mg/dL [facility] Other Protein [Mass/Vol] 6.005240 g/dL Normal 6.1-7.9 g/dL [facility] Other Hepatic Panel 0.4 mg/dL [facility] Other Hepatic Panel 3.2 g/dL [facility] Other Leukocytes [#/volume] correc margarita for nucleated erythrocytes in Blood by Automated counOrdered By: Awais Bright on 10-23-2022 WBC corrected for nucl RBC Auto (Bld) [#/Vol] 8.6 10*3/uL 3.8-11.6 [facility] Lymphocytes Auto (Bld) [#/Vo l]Ordered By: Awais Bright on 10-23-2022 Lymphocytes (Bld) [#/Vol] 2.2 10*3/uL 1.00-4.8 [facility] Lymphocytes/100 WBC Auto (Bl d)Ordered By: Awais Bright on 10-23-2022 Lymphocytes/100 WBC (Bld) 25.4 % . [facility] MCH Auto (RBC) [Entitic mass ]Ordered By: Awais Bright on 10-23-2022 MCH (RBC) [Entitic mass] 29.2 pg 24.7-34.3 [facility] MCHC Auto (RBC) [Mass/Vol]Or dered By: Awais Bright on 10-23-2022 MCHC (RBC) [Mass/Vol] 33.5 g/dL 32.0-35.0 [facility] MCV Auto (RBC) [Entitic vol] Ordered By: Awais Bright on 10-23-2022 MCV (RBC) [Entitic vol] 87.1 fL 80-100 [facility] Monocytes Auto (Bld) [#/Vol] Ordered By: Awais Bright on 10-23-2022 Monocytes (Bld) [#/Vol] 0.4 10*3/uL 0.0-0.8 [facility] Monocytes/100 WBC Auto (Bld) Ordered By: Awais Bright on 10-23-2022 Monocytes/100 WBC (Bld) 4.5 % . [facility] Neutrophils Auto (Bld) [#/Vo l]Ordered By: Awais Bright on 10-23-2022 Neutrophils (Bld) [#/Vol] 5.8 10*3/uL 1.8-7.7 [facility] Neutrophils/100 WBC Auto (Bl d)Ordered By: Awais Bright on 10-23-2022 Neutrophils/100 WBC (Bld) 67.9 % . [facility] No Panel InformationOrdered By: Awais Bright on 10-23-2022 Estimated GFR () > 60 mL/Min [facility] Comment on above: GFR estimated refere nce range: According to KDOQI guidelines, <60 ml/min/1.73m2 is sufficient to diagnose a patient with chronic kidney disease. Pharmacy Creatinine Clearance (Chem N/A [facility] Nucleated erythrocytes [Pres ence] in Blood by Automated countOrdered By: Awais Bright on 10-23-2022 Nucleated RBC Auto Ql (Bld) 0.1 /100{WBC} 0-0.5 [facility] Platelet mean volume Auto (B ld) [Entitic vol]Ordered By: Awais Bright on 10-23-2022 Platelet mean volume (Bld) [Entitic vol] 9.6 fL 6.3-10.7 [facility] Platelets [#/volume] in Bloo d by Automated countOrdered By: Awais Bright on 10-23-2022 Platelets (Bld) [#/Vol] 260 10*3/uL 150-450 [facility] Protein [Mass/volume] in Ser um or PlasmaOrdered By: Awais Bright on 10-23-2022 Protein [Mass/Vol] 6.8 g/dL 6.1-7.9 [facility] Serum or plasma alanine coelho otransferase measurement without P-5'-P (enzymatic activiOrdered By: Awais Bright on 10-23-2022 ALT No additional P-5'-P [Catalytic activity/Vol] 24 U/L 10-60 [facility] Serum or plasma albumin/glob ulin mass ratioOrdered By: Awais Bright on 10-23-2022 Albumin/Globulin [Mass ratio] 1.1 {ratio} [facility] Serum or plasma alkaline last sphatase measurement (enzymatic activity/volume)Ordered By: Awais Bright on 10-23-2022 ALP [Catalytic activity/Vol] 65 U/L 32-92 [facility] Serum or plasma anion gap de terminationOrdered By: Awais Bright on 10-23-2022 Anion gap [Moles/Vol] 11.7 mmol/L 6.0-15.0 [facility] Serum or plasma aspartate am inotransferase measurement (enzymatic activity/volume)Ordered By: Awais Bright on 10-23-2022 AST [Catalytic activity/Vol] 22 U/L 10-42 [facility] Serum or plasma calcium kurt urement (mass/volume)Ordered By: Awais Bright on 10-23-2022 Calcium [Mass/Vol] 9.6 mg/dL 8.2-10.2 [facility] Serum or plasma chloride ludivina surement (moles/volume)Ordered By: Awais Bright on 10-23-2022 Chloride [Moles/Vol] 104 mmol/L 95-114 [facility] Serum or plasma glucose kurt urement (mass/volume)Ordered By: Awais Bright on 10-23-2022 Glucose [Mass/Vol] 108 mg/dL 70-100 [facility] Comment on above: ADA recommended refe rence rangeRandom Glucose Reference Range is dependent on time and content of last meal. Glucose of more than 200 mg/dL in a nonstressed, ambulatory subject supports the diagnosis of Diabetes Mellitus. Serum or plasma non-glucuron idated bilirubin measurement (mass/volume)Ordered By: Awais Bright on 10-23-2022 Bilirubin.indirect [Mass/Vol] 0.4 mg/dL [facility] Serum or plasma potassium me asurement (moles/volume)Ordered By: Awais Bright on 10-23-2022 Potassium [Moles/Vol] 4.3 mmol/L 3.5-5.1 [facility] Serum or plasma sodium measu rement (moles/volume)Ordered By: Awais Bright on 10-23-2022 Sodium [Moles/Vol] 136 mmol/L 136-146 [facility] Serum or plasma thyroxine (T 4) measurement (mass/volume)Ordered By: Awais Bright on 10-23-2022 T4 [Mass/Vol] 8.37 ug/dL 5.39-11.82 [facility] Serum or plasma total biliru bin measurement (mass/volume)Ordered By: Awais Bright on 10-23-2022 Bilirubin [Mass/Vol] 0.5 mg/dL 0.3-1.2 [facility] Serum or plasma total carbon dioxide measurement (moles/volume)Ordered By: Awais Bright on 10-23-2022 CO2 [Moles/Vol] 24.6 mmol/L 22.0-30.0 [facility] Serum or plasma urea nitroge n measurement (mass/volume)Ordered By: Awais Bright on 10-23-2022 Urea nitrogen [Mass/Vol] 15 mg/dL 9- [facility] TSH DL <= 0.005 mIU/L QnOrde red By: Awais Bright on 10-23-2022 TSH Qn 1.91 m[IU]/L 0.45-5.33 [facility] Thyroid Stimulating Hormoneo n 10-23-2022 TSH Qn 1.46161917685 m[IU]/L Normal 0.45-5 .33 u[iU]/mL DxNA [facility] [employer] Other Thyroxine (T4) Totalon 10-23 Thyroxine (T4) Total 8.37 ug/dL Normal 5.39-11 .82 ug/dL [facility] Other WBC Auto (Bld) [#/Vol]Ordere d By: Awais Bright on 10-23-2022 WBC (Bld) [#/Vol] 8.6 10*3/uL 3.8-11.6 [facility] XR abdomen min 2Von 10-23-20 22 XR abdomen min 2V [facility] [employer] Other XR abdomen min 2V [place] [address] [place] [facility] [employer] Other XR abdomen min 2V 1[address] [facility] NUMBER26 Other XR abdomen min 2V PAIGE Velas[place] [address] [place] [employer] Other XR abdomen min 2V XRay Report [facility]26 Other XR abdomen min 2V Signed [facility] [employer] Other XR abdomen min 2V Patient: Paige Mccarty MR#: [id number] [facility] [employer] Other XR abdomen min 2V : 1965 Acct:[id number] [facility] Other XR abdomen min 2V Age/Sex: 57 / F ADM Date: 10/23/22 [facility] Other XR abdomen min 2V Loc: [facility] Room: Typ e: [facility] NUMBER26 Other XR abdomen min 2V Attending Dr: Awais Bright DO [facility]26 Other XR abdomen min 2V Copies to: Awais Bright DO [facility] Other XR abdomen min 2V Ordering Provider: Deshawn Bright DO NUM[facility]26 Other XR abdomen min 2V Date of Service: 10/23/22 [facility] Other XR abdomen min 2V XR/XR abdomen min 2V: Abdominal pain [facility]26 Other XR abdomen min 2V ([id number]) XR/XR chest 2V*: Dyspepsia [facility] Other XR abdomen min 2V Plain film chest2 view [facility]26 Other XR abdomen min 2V HISTORY:Shortness of breath. [facility] Other XR abdomen min 2V COMPARISON:None No rt [employer] Other XR abdomen min 2V FINDINGS: The cardia c, mediastinal and hilar silhouettes are within normal limits. No acute lung [facility] Other XR abdomen min 2V process, pleural effusion or pneumothorax identified. Bony structures are intact. [facility] Other XR abdomen min 2V XR/XR chest 2V* [facility] Other XR abdomen min 2V IMPRESSION: No acute process. . [facility] Other XR abdomen min 2V 2 views of abdomen [facility] Other XR abdomen min 2V HISTORY: Upper LEFT abdominal pain. [facility] Other XR abdomen min 2V RIGHT upper quadrant surgical clips present. No pneumoperitoneum. Moderate stool throughout the [facility]26 Other XR abdomen min 2V proximal mid colon. Tubal ligation clips present. No gaseous intestinal distention. 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 [facility]26 Other XR abdomen min 2V IMPRESSION: Nonspeci fic abdomen. A moderate stool. [facility]26 Other XR abdomen min 2V Impression dictated by: Bishnu Correia M.D.10/23/2022 4:03 PM [facility] Other XR abdomen min 2V Dictation Location: [facility]-- [id number] Other XR abdomen min 2V Transcribed By: JOE 10/23/22 1603 [facility] Other XR abdomen min 2V Dictated By: Bishnu Correia DO 10/23/22 1550 NUM[facility]26 Other XR abdomen min 2V Signed By: Herminio Marycarmen [facility] Other XR abdomen min 2V 10/23/22 1603 [facility] [employer] [employer] Other Cholesterol [Mass/volume] in Serum or PlasmaOrdered By: Awais Bright on 10-17-2022 Cholesterol [Mass/Vol] 245 mg/dL 140-200 [facility] Comment on above: Chol less than 200 m g/dl low riskChol 201-239 mg/dl borderline riskChol 240 mg/dl and greater high risk Cholesterol in LDL Calc [Mas s/Vol]Ordered By: Aawis Bright on 10-17-2022 Cholesterol in LDL [Mass/Vol] 145 mg/dL 0-100 [facility] Comment on above: LDL ATP III CLASSIFI CATIONLDL less than 100 mg/dL OptimalLDL 100-129 mg/dL Near or above optimalLDL 130-159 mg/dL Borderline highLDL 160-189 mg/dL HighLDL greater than 189 mg/dL Very high Cholesterol in VLDL Calc [Ma ss/Vol]Ordered By: Awais Bright on 10-17-2022 Cholesterol in VLDL [Mass/Vol] 40 mg/dL [facility] Glucose mean value [Mass/vol ume] in Blood Estimated from glycated hemoglobinOrdered By: Awais Bright on 10-17-2022 Average glucose Estimated from glycated hemoglobin (Bld) [Mass/Vol] 134 mg/dL [facility] [facility] Hem[facility] A1c percentageOrd ered By: Awais Bright on 10-17-2022 HbA1c (Bld) [Mass fraction] 6.3 % 4.3-5.6 [facility] Comment on above: Increased risk for d iabetes: 5.7 - 6.4diabetes: >6.4glycemic control for adults with diabetes: <7.0 Serum or plasma high density lipoprotein (HDL) cholesterol measurementOrdered By: Awais Bright on 10-17-2022 Cholesterol in HDL [Mass/Vol] 60 mg/dL 35-85 [facility] Comment on above: HDL CHOL ATP-III CLA SSIFICATION Cardiovascular RiskHDL > or equal to 60 mg/dL LOWHDL < 40 mg/dL HIGH Serum or plasma total choles terol/high density lipoprotein (HDL) cholesterol mass ratOrdered By: Awais Bright on 10-17-2022 Cholesterol.total/Chol esterol in HDL [Mass ratio] 4.1 {ratio} <5.0 [facility] Triglyceride [Mass/volume] i n Serum or PlasmaOrdered By: Awais Bright on 10-17-2022 Triglyceride [Mass/Vol] 200 mg/dL 35-149 [facility] Comment on above: TRIG ATP III [...] by: ROBBI CORREIA Date: 2022-09-24 15:[address] [facility] Vital Signs Date Time Vital Sign Value Performing Clinician Facility 08-24-2024 11:46-0400 Diastolic blood pressure 72 mm[Hg] Terese Braxton MD Work Phone: [facility] 08-24-2024 11:46-0400 Systolic blood pressure 110 mm[Hg] Terese Braxton MD Work Phone: [facility] 08-24-2024 11:24-040 Body height 157.5 cm Terese Braxton MD Work Phone: [facility] 08-24-2024 11:24-0400 Body mass index (BMI) [Ratio] 37.75 kg/m2 Terese Braxton MD Work Phone: [facility] 08-24-2024 11:24-040 Body weight 93.62 kg Terese Braxton MD Work Phone: [facility] 08-24-2024 11:24-0400 Heart rate 84 /min Terese Braxton MD Work Phone: [facility] 04-14-2024 13:40-0400 Diastolic blood pressure 67 mm[Hg] [facility] 04-14-2024 13:40-0400 Systolic blood pressure 111 mm[Hg] [facility] 04-14-2024 13:38-0400 Body height 158.75 cm [facility] 04-14-2024 13:38-0400 Body mass index (BMI) [Ratio] 42.2 kg/m2 [facility] 04-14-2024 13:38-0400 Body temperature 98 [degF] [facility] 04-14-2024 13:38-0400 Body weight 106.36 kg [facility] 04-14-2024 13:38-0400 Heart rate 77 /min [facility] 04-14-2024 13:38-0400 Respiratory rate 16 /min [facility] 04-14-2024 13:38-0400 SaO2% (BldA) [Mass fraction] 92 % [facility] 02-10-2024 10:48-0400 Body height 158.1 cm Terese Braxton MD Work Phone: [facility] 02-10-2024 10:48-0400 Body mass index (BMI) [Ratio] 46.45 kg/m2 Terese Braxton MD Work Phone: [facility] 02-10-2024 10:48-0400 Body weight 116.12 kg Terese Braxton MD Work Phone: [facility] 02-10-2024 10:48-0400 Diastolic blood pressure 80 mm[Hg] Terese Braxton MD Work Phone: [facility] 02-10-2024 10:48-0400 Heart rate 80 /min Terese Braxton MD Work Phone: [facility] 02-10-2024 10:48-0400 Systolic blood pressure 128 mm[Hg] Terese Braxton MD Work Phone: [facility] 11-26-2023 08:47-0500 Body height 157.5 cm Yoli Hoitenga PA-C Work Phone: [facility] [employer] [facility] 11-26-2023 08:47-0500 Body mass index (BMI) [Ratio] 53.37 kg/m2 Yoli Hoitenga PA-C Work Phone: [facility] [employer] 11-26-2023 08:47-0500 Body weight 132.36 kg Yoli Hoitenga PA-C Work Phone: [facility] 11-26-2023 08:47-0500 Diastolic blood pressure 72 mm[Hg] Yoli Hoitenga PA-C Work Phone: [facility] [employer] [facility] 11-26-2023 08:47-0500 Heart rate 88 /min Yoli Hoitenga PA-C Work Phone: [facility] [employer] 11-26-2023 08:47-0500 SaO2% (BldA) [Mass fraction] 96 % Yoli Hoitenga PA-C Work Phone: [facility] [employer] [facility] 11-26-2023 08:47-0500 Systolic blood pressure 108 mm[Hg] Yoli Hoitenga PA-C Work Phone: [facility] 11-06-2023 12:41-0500 Body height 157.5 cm [facility] 11-06-2023 12:41-0500 Body mass index (BMI) [Ratio] 57.02 kg/m2 [facility] 11-06-2023 12:41-0500 Body temperature 98.01 [degF] [facility] 11-06-2023 12:41-0500 Body weight 141.4 kg [facility] 11-06-2023 12:41-0500 Diastolic blood pressure 74 mm[Hg] [facility] 11-06-2023 12:41-0500 Heart rate 78 /min [facility] 11-06-2023 12:41-0500 Respiratory rate 18 /min [facility] 1 [facility] 11-06-2023 12:41-0500 SaO2% (BldA) [Mass fraction] 98 % [facility] 11-06-2023 12:41-0500 Systolic blood pressure 145 mm[Hg] [facility] 10-14-2023 09:45-0500 Body height 157.48 cm Awais Oberer Other [email or web address] Other 10-14-2023 09:45-0500 Body mass index (BMI) [Ratio] 56.05 kg/m2 Awais Oberer Other [email or web address] Other 10-14-2023 09:45-0500 Body temperature 98.1 [degF] Awais Oberer Other [email or web address] Other 10-14-2023 09:45-0500 Body weight 139.03 kg Awais Oberer Other [email or web address] Other 10-14-2023 09:45-0500 Diastolic blood pressure 71 mm[Hg] Awais Oberer Other [email or web address] Other 10-14-2023 09:45-0500 Respiratory rate 18 /min Awais Oberer Other [email or web address] Other 10-14-2023 09:45-0500 SaO2% (BldA) [Mass fraction] 94 % Awais Oberer Other [email or web address] Other 10-14-2023 09:45-0500 Systolic blood pressure 118 mm[Hg] Awais Oberer Other [facility] [employer] Other 08-01-2023 11:57-0400 Diastolic blood pressure 72 mm[Hg] Terese Braxton MD Work Phone: [facility] 08-01-2023 11:57-0400 Systolic blood pressure 136 mm[Hg] Terese Braxton MD Work Phone: [facility] 08-01-2023 11:02-0400 Body height 157.5 cm Terese Braxton MD Work Phone: [facility] 08-01-2023 11:02-0400 Body mass index (BMI) [Ratio] 56.33 kg/m2 Terese Braxton MD Work Phone: [facility] 08-01-2023 11:02-0400 Body weight 139.71 kg Terese Braxton MD Work Phone: [facility] 08-01-2023 11:02-0400 Heart rate 70 /min Terese Braxton MD Work Phone: [facility] 07-15-2023 11:07-0400 Diastolic blood pressure 80 mm[Hg] Awais L Oberer Work Phone: [facility] DO Work Phone: 07-15-2023 11:07-0400 Systolic blood pressure 152 mm[Hg] Awais L Oberer Work Phone: [facility] DO Work Phone: 07-15-2023 10:14-0400 Body [...] L Oberer Work Phone: [facility] DO Work Phone: 07-15-2023 10:14-0400 Systolic blood pressure 160 mm[Hg] Awais L Oberer Work Phone: [facility] DO Work Phone: 05-27-2023 10:30-0400 Body height 157.48 cm Holly Jaquez Other [email or web address] Other 05-27-2023 10:30-0400 Body mass index (BMI) [Ratio] 55.63 kg/m2 Holly Jaquez Other [email or web address] Other 05-27-2023 10:30-0400 Body temperature 97.5 [degF] Holly Jaquez Other [email or web address] Other 05-27-2023 10:30-0400 Body weight 137.99 kg Holly Jaquez Other [email or web address] Other 05-27-2023 10:30-0400 Diastolic blood pressure 90 mm[Hg] Holly Jaquez Other [email or web address] Other 05-27-2023 10:30-0400 Respiratory rate 20 /min Holly Jaquez Other [email or web address] Other 05-27-2023 10:30-0400 SaO2% (BldA) [Mass fraction] 95 % Holly Jaquez Other [email or web address] Other 05-27-2023 10:30-0400 Systolic blood pressure 132 mm[Hg] Holly Jaquez Other [email or web address] Other 04-23-2023 09:15-0400 Body height 157.48 cm Awais Oberer Other [email or web address] Other 04-23-2023 09:15-0400 Body mass index (BMI) [Ratio] 55.47 kg/m2 Awais Oberer Other [email or web address] Other 04-23-2023 09:15-0400 Body temperature 98.7 [degF] Awais Oberer Other [email or web address] Other 04-23-2023 09:15-0400 Body weight 137.58 kg Awais Oberer Other [email or web address] Other 04-23-2023 09:15-0400 Diastolic blood pressure 69 mm[Hg] Awais Oberer Other [email or web address] Other 04-23-2023 09:15-0400 Respiratory rate 18 /min Awais Oberer Other [email or web address] Other 04-23-2023 09:15-0400 SaO2% (BldA) [Mass fraction] 95 % Awais Oberer Other [facility] [employer] Other 04-23-2023 09:15-0400 Systolic blood pressure 111 mm[Hg] Awais Oberer Other [facility] [employer] Other 03-28-2023 14:07-0400 Body temperature 97.8 [degF] DO Awais Oberer Work Phone: [facility] 03-28-2023 14:07-0400 Body weight 139.47 kg DO Awais Oberer Work Phone: [facility] 03-28-2023 14:07-0400 Diastolic blood pressure 80 mm[Hg] DO Awais Oberer Work Phone: [facility] 03-28-2023 14:07-0400 Heart rate 16 /min DO Awais Oberer Work Phone: [facility] 03-28-2023 14:07-0400 Respiratory rate 16 /min DO Awais Oberer Work Phone: [facility] 03-28-2023 14:07-0400 SaO2% (BldA) [Mass fraction] 94 % DO Awais Oberer Work Phone: [facility] 03-28-2023 14:07-0400 Systolic blood pressure 133 mm[Hg] DO Awais Oberer Work Phone: [facility] 02-13-2023 12:30-0400 56 1 Awais L Oberer Work Phone: [facility] [address] [place] Work Phone: Comment on above: [id number] 01-21-2023 12:35-0400 Body height 158.12 cm Awais L Oberer Work Phone: [facility] DO Work Phone: 01-21-2023 12:35-0400 Body mass index (BMI) [Ratio] 55.33 kg/m2 Awais L Oberer Work Phone: [facility] DO Work Phone: 01-21-2023 12:35-0400 Body surface area Derived from formula 2.29 m2 Awais L Oberer Work Phone: [facility] DO Work Phone: 01-21-2023 12:35-0400 Body weight 138.35 kg Awais L Oberer Work Phone: [facility] DO Work Phone: 01-21-2023 12:35-0400 Diastolic blood pressure 86 mm[Hg] Awais L Oberer Work Phone: [facility] DO Work Phone: 01-21-2023 12:35-0400 Heart rate 80 /min Awais L Oberer Work Phone: [facility] DO Work Phone: 01-21-2023 12:35-0400 Systolic blood pressure 132 mm[Hg] Awais L Oberer Work Phone: [facility] DO Work Phone: 01-09-2023 14:30-0400 60 1 Awais L Oberer Work Phone: [facility] DO Work Phone: Comment on above: [id number] 11-22-2022 11:47-0500 Body height 158.12 cm Awais L Oberer Work Phone: [facility] DO Work Phone: 11-22-2022 11:47-0500 Body mass index (BMI) [Ratio] 54.61 kg/m2 Awais L Oberer Work Phone: [facility] DO Work Phone: 11-22-2022 11:47-0500 Body surface area Derived from formula 2.28 m2 Awais L Oberer Work Phone: [facility] DO Work Phone: 11-22-2022 11:47-0500 Body weight 136.53 kg Awais L Oberer Work Phone: [facility] DO Work Phone: 11-22-2022 11:47-0500 Diastolic blood pressure 82 mm[Hg] Awais L Oberer Work Phone: [facility] DO Work Phone: 11-22-2022 11:47-0500 Diastolic blood pressure 72 mm[Hg] Awais L Oberer Work Phone: [facility] DO Work Phone: 11-22-2022 11:47-0500 Heart rate 86 /min Awais L Oberer Work Phone: [facility] DO Work Phone: 11-22-2022 11:47-0500 Systolic blood pressure 136 mm[Hg] Awais L Oberer Work Phone: [facility] DO Work Phone: 11-22-2022 11:47-0500 Systolic blood pressure 132 mm[Hg] Awais L Oberer Work Phone: [facility] DO Work Phone: 10-23-2022 14:15-0500 Body height 157.48 cm Awais Oberer Other [email or web address] Other 10-23-2022 14:15-0500 Body mass index (BMI) [Ratio] 56.78 kg/m2 Awais Oberer Other [email or web address] Other 10-23-2022 14:15-0500 Body temperature 98.2 [degF] Awais Oberer Other [email or web address] Other 10-23-2022 14:15-0500 Body weight 140.84 kg Awais Oberer Other [email or web address] Other 10-23-2022 14:15-0500 Diastolic blood pressure 76 mm[Hg] Awais Oberer Other [email or web address] Other 10-23-2022 14:15-0500 Respiratory rate 18 /min Awais Oberer Other [email or web address] Other 10-23-2022 14:15-0500 SaO2% (BldA) [Mass fraction] 97 % Awais Oberer Other [email or web address] Other 10-23-2022 14:15-0500 Systolic blood pressure 122 mm[Hg] Awais Oberer Other [email or web address] Other 01-18-2022 16:30-0400 Body height 157.48 cm Awais Oberer Other [email or web address] Other 01-18-2022 16:30-0400 Body mass index (BMI) [Ratio] 49.07 kg/m2 Awais Oberer Other [email or web address] Other 01-18-2022 16:30-0400 Body temperature 98.6 [degF] Awais Oberer Other [email or web address] Other 01-18-2022 16:30-0400 Body weight 121.7 kg Awais Oberer Other [email or web address] Other 01-18-2022 16:30-0400 Diastolic blood pressure 82 mm[Hg] Awais Oberer Other [email or web address] Other 01-18-2022 16:30-0400 Respiratory rate 18 /min Awais Oberer Other [email or web address] Other 01-18-2022 16:30-0400 SaO2% (BldA) [Mass fraction] 96 % Awais Oberer Other [email or web address] Other 01-18-2022 16:30-0400 Systolic blood pressure 111 mm[Hg] Awais Oberer Other [email or web address] Other 05-06-2018 14:11-0400 Body height 158.75 cm DO Awais Oberer Work Phone: [facility] Encounters Encounter Date Encounter Type Care Provider Facility Start: 08-24-2024 End: 08-24-2024 Office outpatient visit 25 minutes Terese Braxton MD Work Phone: [facility] Comment on above: Hypertensive heart d isease without CHF; Hyperlipemia, mixed; S/P gastric bypass; BMI 37.0-37.9, adult; Current every day smoker; Hypokalemia; Medication course changed Start: 08-24-2024 End: 08-24-2024 ambulatory [facility] Start: 04-16-2024 End: 04-16-2024 ambulatory [facility] Start: 04-14-2024 End: 04-14-2024 ambulatory [facility]ais [facility] Work Phone: Start: 04-14-2024 End: 04-14-2024 Departed Referred DO Awais Segundor Work Phone: [facility] [place] Work Phone: Start: 04-14-2024 End: 04-14-2024 ambulatory [facility] Work Phone: Start: 04-14-2024 End: 04-14-2024 Patient encounter procedure [facility] Work Phone: Start: 04-13-2024 Non-patient / Non-visit [facility] Work Phone: Start: 04-07-2024 Non-patient / Non-visit [facility] Work Phone: Start: 03-03-2024 Non-patient / Non-visit [facility] Physician [facility] Work Phone: Start: 02-18-2024 End: 02-18-2024 ambulatory [facility] Start: 02-10-2024 End: 02-10-2024 ambulatory [facility] Start: 02-10-2024 End: 02-10-2024 Office outpatient visit 25 minutes Terese Braxton MD Work Phone: [facility] Comment on above: S/P gastric bypass ( Primary Dx); Hypertensive heart disease without CHF; Hyperlipemia, mixed; Current every day smoker; Hypokalemia; Medication course changed; BMI 45.0-49.9, adult (Multi) Start: 02-05-2024 Non-patient / Non-visit [facility] Physician [facility] Work Phone: Start: 01-15-2024 Non-patient / Non-visit [facility] Physician [facility] Work Phone: Start: 12-23-2023 End: 12-23-2023 ambulatory [facility] Start: 12-16-2023 Telephone encounter Jaz corral RN Work Phone: [facility] General Surgery-Bariatric Start: 11-26-2023 End: 11-26-2023 Postop follow up visit related to original px Yoli Abdiaziz Jose F PATRICIA Work Phone: [facility] Comment on above: History of Da-en-Y gastric bypass (Primary Dx); Postsurgical malabsorption; Malnutrition following gastrointestinal surgery; Vitamin D deficiency; Post-operative nausea and vomiting Start: 11-26-2023 End: 11-26-2023 ambulatory YOLI Freed [facility] Start: 11-26-2023 Encounter for other preprocedural examination [place] Abdiaziz [facility] Start: 11-21-2023 End: 11-21-2023 Evaluation and management of inpatient JARROD Codi [facility] Start: 11-20-2023 End: 11-21-2023 Evaluation and management of inpatient [facility] Start: 11-19-2023 ambulatory Abena Henao Facility:[facility] Start: 11-13-2023 End: 11-13-2023 ambulatory [facility] Start: 11-13-2023 End: 11-13-2023 ambulatory [facility] Start: 11-06-2023 End: 11-06-2023 ambulatory [facility] Start: 11-06-2023 End: 11-06-2023 Patient encounter procedure [facility] 1 [facility] Comment on above: Morbid obesity (CMS- HCC); Hypertension, unspecified type Start: 10-14-2023 End: 10-14-2023 ambulatory Awais Oberer Other [id number] Other Start: 10-14-2023 Office outpatient vi sit 40 minutes Awais Obbennie [facility] Start: 10-14-2023 Telephone encounter Awais Oberer [facility] Start: 08-01-2023 End: 08-01-2023 Office outpatient visit 15 minutes Terese Braxton MD Work Phone: [facility] Comment on above: Hypertensive heart d isease without CHF (Primary Dx); Encounter to discuss test results; SOB (shortness of breath); Hyperlipemia, mixed; Pre-diabetes; BMI 50.0-59.9, adult ([facility]); PVC (premature ventricular contraction); Current every day smoker Start: 07-25-2023 Chart Update Awais L Oberer Work Phone: [facility] 250 DO Work Phone: Start: 07-25-2023 End: 07-25-2023 Patient encounter procedure DO Awais Oberer Work Phone: [facility] Start: 07-25-2023 End: 07-25-2023 ambulatory DO Awais Oberer Work Phone: [facility] Ctr Work Phone: Start: 07-23-2023 ambulatory Terese Braxton Facility:1 [id number] Start: 07-15-2023 Office outpatient vi sit 25 minutes Awais L Oberer Work Phone: [facility] 250 DO Work Phone: Start: 07-15-2023 Patient encounter procedure Shani pro L Oberer Work Phone: [facility] 250 DO Work Phone: Start: 07-15-2023 ambulatory Terese Fox Facility:1 [id number] Start: 05-27-2023 End: 05-27-2023 ambulatory Holly Jaquez Other [employer] Other Start: 05-27-2023 Office outpatient ne w 45 minutes Holly Jaquez [facility] Start: 05-27-2023 Telephone encounter Holly Jaquez [facility] Start: 05-13-2023 End: 05-13-2023 ambulatory Awais Oberer Other [email or web address] Other Start: 05-13-2023 Telephone encounter Awais Oberer [facility] Start: 04-23-2023 Office outpatient vi sit 25 minutes Awais Oberer [facility] Start: 04-23-2023 Telephone encounter Awais Oberer [facility] Start: 04-23-2023 End: 04-23-2023 Patient encounter procedure DO Awais Oberer Work Phone: [facility]tr-X-Ray [facility] Start: 04-23-2023 End: 04-23-2023 ambulatory DO Awais Oberer Work Phone: [facility] Work Phone: Start: 04-15-2023 End: 04-15-2023 ambulatory DO Awais Oberer Work Phone: [facility] Work Phone: Start: 04-15-2023 End: 04-15-2023 Patient encounter procedure DO Awais Oberer Work Phone: [facility] [place] Work Phone: Start: 03-28-2023 End: 03-28-2023 ambulatory DO Awais Oberer Work Phone: [facility] C[facility] Work Phone: Start: 03-28-2023 End: 03-28-2023 Registered Recurring DO Awais Oberer Work Phone: [facility]Cancer Center Work Phone: Start: 03-11-2023 End: 03-11-2023 ambulatory Cathy Covarrubias Other [email or web address] Other Start: 03-11-2023 Telephone encounter Cathy Covarrubias [facility] Start: 02-14-2023 Chart Update Awais L Oberer Work Phone: [facility] 250 DO Work Phone: Start: 02-14-[address] Terese Velasquez [id number] Start: 02-13-[address] Terese Velasquez [id number] Start: 02-13-2023 Patient encounter procedure Ka rl L Oberer Work Phone: [facility] [address] [place] Work Phone: Start: 01-26-2023 Chart Update Awais L Oberer Work Phone: [facility] 250 DO Work Phone: Start: 01-25-2023 End: 01-25-2023 ambulatory DO Awais Oberer Work Phone: [facility] Work Phone: Start: 01-25-2023 End: 01-25-2023 Patient encounter procedure DO [facility]ais [facility] Start: 01-21-2023 ambulatory Terese Braxton Facility:[id number] Start: 01-12-2023 Chart Update Awais L Oberer Work Phone: [facility] 250 DO Work Phone: Start: 01-09-[address] Terese Velasquez [id number] Start: 01-09-2023 End: 01-09-2023 ambulatory DO Awais Oberer Work Phone: [facility] Work Phone: Start: 01-09-2023 End: 01-09-2023 Patient encounter procedure DO Awais [facility]berer [facility] Start: 12-07-2022 End: 12-07-2022 ambulatory DO Awais Oberer Work Phone: [facility] Work Phone: Start: 12-07-2022 End: 12-07-2022 Patient encounter procedure DO Awais Oberer Work Phone: [facility] Ctr-Respiratory Therapy Work Phone: Start: 11-23-2022 Telephone encounter Awais L Obe rer Work Phone: [facility] [address] DO Work Phone: Start: 11-22-2022 Office consultation new/estab patient 60 min Awais L Oberer Work Phone: [facility] Work Phone: Start: 11-22-2022 ambulatory Teresemic Braxton Facility:[id number] Start: 10-25-2022 End: 10-25-2022 ambulatory Awais Oberer Other [facility] [employer] Other Start: 10-25-2022 Telephone encounter Awais Oberer [facility] Start: 10-23-2022 End: 10-23-2022 Patient encounter procedure DO Awais Oberer Work Phone: [facility] Start: 10-23-2022 End: 10-23-2022 ambulatory DO Awais Oberer Work Phone: [facility] Work Phone: Start: 10-23-2022 Office outpatient vi sit 40 minutes Awais Oberer [facility] Start: 10-17-2022 End: 10-17-2022 ambulatory DO Awais Oberer Work Phone: [facility] Work Phone: Start: 10-17-2022 End: 10-17-2022 Patient encounter procedure DO Awais Oberer Work Phone: [facility]Lab [facility] Start: 09-24-2022 End: 09-24-[address] DOCTOR BENTON Facility:H1 Start: 09-07-2022 End: 09-07-2022 ambulatory Awais Oberer Other [email or web address] Other Start: 09-07-2022 Telephone encounter Awais Oberer [facility] Start: 02-08-2022 End: 02-08-2022 ambulatory Awais Oberer Other [email or web address] Other Start: 02-08-2022 Telephone encounter Awais Oberer [facility] Start: 01-29-2022 End: 01-29-2022 ambulatory Awais Oberer Other [email or web address] Other Start: 01-29-2022 Telephone encounter Awais Oberer [facility] Start: 01-18-2022 End: 01-18-2022 ambulatory Awais Oberer Other [email or web address] Other Start: 01-18-2022 Office outpatient vi sit 40 minutes Awais Oberer [facility] [place] Procedures Date Procedure Procedure Detail Performing [...] 60+ years (1 - 1-dose 60+ series) [facility] Start: 12-23-2025 DTaP,Tdap and Td Vaccines (3 - Td or Tdap) DTaP,Tdap and Td Vaccines (3 - Td or Tdap) [facility] Start: 12-23-2025 DTaP/Tdap/Td Vaccine s (3 - Td or Tdap) DTaP/Tdap/Td Vaccines (3 - Td or Tdap) [facility] Start: 02-22-2025 End: 02-22-2025 Patient encounter procedure 02/22/2025 11:30 AM EDT Office Visit [address] [phone] Terese Braxton MD [address] [facility] [address] [place] [address] [facility] Start: 11-26-2024 Adult BMI Follow Up Plan Adult BMI F ollow Up Plan [facility] Start: 11-26-2024 Adult BMI Screening Adult BMI Screen ing [facility] Start: 11-26-2024 Tobacco Screening Tobacco Screening [facility] Start: 11-20-2024 Depression Screening Depression Scre ening [facility] Start: 11-06-2024 Adult BMI Screening Adult BMI Screen ing [facility] Start: 11-06-2024 Tobacco Screening Tobacco Screening [facility] Start: 08-13-2024 End: 08-13-2024 Patient encounter procedure 08/13/2024 10:30 AM EDT Office Visit [facility] [address] [facility] [address] [place] [phone] Terese Braxton MD [address] [facility] [address] [place] [address] [facility] Start: 06-28-2024 COVID-19 Vaccine ( season) COVID-19 Vaccine ( season) [facility] Start: 06-28-2024 Influenza vaccination [facility] Start: 04-14-2024 Bacteria identified in Urine by Culture [facility] Start: 02-26-2024 Adult BMI Follow Up Plan Adult BMI F ollow Up Plan [facility] Start: 02-18-2024 End: 02-18-2024 Patient encounter procedure [facility] Start: 02-17-2024 End: 02-09-2025 Basic metabolic 2000 panel - Serum or Plasma Basic Metabolic Panel Lab Routine Hypertensive heart disease without CHF Hypokalemia Medication course changed Expected: 02/17/2024 (Approximate), Expires: 02/09/2025 [facility] Service Area Work Phone: Comment on above: Expected: 02/17/2024 (Approximate), Expires: 02/09/2025 Start: 02-10-2024 End: 02-10-2024 Patient encounter procedure 02/10/2024 10:30 AM EDT Office Visit [facility] [address] [employer] [employer] [place] [address] Terese Braxton MD [address] [facility] [address] [place] [address] [facility] Start: 02-03-2024 End: 11-22-2024 CBC W Auto Differential panel - Blood CBC auto differential Lab Routine 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 History of Da-en-Y gastric bypass Expected: 02/03/2024 (Approximate), Expires: 11/22/2024 to be Work Phone: Comment on above: Expected: 02/03/2024 (Approximate), Expires: 11/22/2024 Start: 02-03-2024 End: 11-22-2024 Cyanocobalamin vitamin b-12 Vitamin B12 Lab Routine 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 History of Da-en-Y gastric bypass Expected: 02/03/2024 (Approximate), Expires: 11/22/2024 [email or web address] Comment on above: Expected: 02/03/2024 (Approximate), Expires: 11/22/2024 Start: 02-03-2024 End: 11-22-2024 Folate Folate Lab Routine 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 History of Da-en-Y gastric bypass Expected: 02/03/2024 (Approximate), Expires: 11/22/2024 [email or web address] Comment on above: Expected: 02/03/2024 (Approximate), Expires: 11/22/2024 Start: 02-03-2024 End: 11-22-2024 Iron [Mass/volume] in Serum or Plasma Iron Lab Routine 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 History of Da-en-Y gastric bypass Expected: 02/03/2024 (Approximate), Expires: 11/22/2024 [email or web address] Comment on above: Expected: 02/03/2024 (Approximate), Expires: 11/22/2024 Start: 02-03-2024 End: 11-22-2024 Liver panel Liver panel Lab Routine 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 History of Da-en-Y gastric bypass Expected: 02/03/2024 (Approximate), Expires: 11/22/2024 [facility] Comment on above: Expected: 02/03/2024 (Approximate), Expires: 11/22/2024 Start: 02-03-2024 End: 11-22-2024 Thiamin Vitamin B1, whole blood Thiamin Vitamin B1, whole blood Lab Routine 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 History of Da-en-Y gastric bypass Expected: 02/03/2024 (Approximate), Expires: 11/22/2024 [facility] Comment on above: Expected: 02/03/2024 (Approximate), Expires: 11/22/2024 Start: 02-03-2024 End: 11-22-2024 Vitamin D 25 hydroxy Vitamin D 25 hydroxy Lab Routine 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 History of Da-en-Y gastric bypass Expected: 02/03/2024 (Approximate), Expires: 11/22/2024 [facility] Comment on above: Expected: 02/03/2024 (Approximate), Expires: 11/22/2024 Start: 12-23-2023 End: 12-23-2023 ambulatory 12/23/2023 1:00 PM EST Support Visit [facility] [address] [place] [phone] Juana Bush LD [facility] Start: 11-26-2023 End: 11-26-2023 Patient encounter procedure 11/26/2023 8:30 AM EST Office Visit [facility] [address] [place] [phone] Yoli Cha PA-C [address] [place] [phone] [facility] Start: 11-26-2023 End: 11-26-2023 ambulatory 11/26/2023 8:00 AM EST Support Visit [facility] [address] [place] [phone] [facility] Start: 11-20-2023 End: 11-20-2023 Admission to same day surgery center 11/20/2023 9:30 AM EST - 11/20/2023 11:30 AM EST Surgery [facility] [address] [place] [phone] López Kidd MD [address] [facility] [address] [place], [place] [phone] [facility] [43096 (CPT )] [facility] Comment on above: [facility] [70988 (CPT )] Start: 11-20-2023 End: 11-20-2023 Laps gstr rstcv px w/byp da-en-y limb <150 cm [facility] MORBID OBESITY, HYPERTENSION 11/20/2023 9:30 AM EST [facility] Start: 11-20-2023 Subsequent hospital visit by physician 11/20/2023 9:30 AM EST Hospital Encounter [facility] [address] [place] [phone] López Kidd MD [address] [facility] [address] [place] [address] [facility] Start: 11-13-2023 End: 11-13-2023 Admission to same day surgery center 11/13/2023 8:00 AM EST Support Visit [facility] [address] [place] [phone] [facility] Start: 08-01-2023 End: 08-01-2024 Comprehensive metabolic 2000 panel - Serum or Plasma Comprehensive metabolic panel Lab Routine Hypertensive heart disease without CHF SOB (shortness of breath) Hyperlipemia, mixed Pre-diabetes BMI 50.0-59.9, adult (CMS/HCC) PVC (premature ventricular contraction) Current every day smoker Expected: 08/01/2023 (Approximate), Expires: 08/01/2024 [facility] Service Area Work Phone: Comment on above: Expected: 08/01/2023 (Approximate), Expires: 08/01/2024 Start: 08-01-2023 End: 08-01-2024 Hemoglobin A1c/Hemoglobin.total in Blood Hemoglobin A1C Lab Routine Hypertensive heart disease without CHF SOB (shortness of breath) Hyperlipemia, mixed Pre-diabetes BMI 50.0-59.9, adult (CMS/HCC) PVC (premature ventricular contraction) Current every day smoker Expected: 08/01/2023 (Approximate), Expires: 08/01/2024 [facility] Work Phone: Comment on above: Expected: 08/01/2023 (Approximate), Expires: 08/01/2024 Start: 08-01-2023 End: 08-01-2024 Lipid 1996 panel - Serum or Plasma Lipid Panel Lab Routine Hypertensive heart disease without CHF SOB (shortness of breath) Hyperlipemia, mixed Pre-diabetes BMI 50.0-59.9, adult (CMS/HCC) PVC (premature ventricular contraction) Current every day smoker Expected: 08/01/2023 (Approximate), Expires: 08/01/2024 [facility] Work Phone: Comment on above: Expected: 08/01/2023 (Approximate), Expires: 08/01/2024 Start: 07-23-2023 HOLTER 48, Provider: WESTON VILLEGAS SAP TECHNICAL DEVELOPER 1,[id number], Status: Pen, Time: 10:00 AM HOLTER 48, Provider: WESTON VILLEGAS SAP TECHNICAL DEVELOPER 1,[id number], Status: Pen, Time: 10:00 AM [facility] 250 DO Work Phone: Start: 07-15-2023 FUV, Provider: Terese Braxton, Status: Pen, Time: 10:30 AM FUV, Provider: Terese Braxton, Status: Pen, Time: 10:30 AM -[facility] 250 DO Work Phone: Start: 06-28-2023 COVID-19 Vaccine ( season) COVID-19 Vaccine ( season) [facility] Start: 06-28-2023 Influenza vaccination [facility] Start: 02-14-2023 REST ONLY, Provider: MELVINA HHVI NUCLEAR 01,[id number], Status: Pen, Time: 12:30 PM REST ONLY, Provider: MELVINA HHVI NUCLEAR 01,[id number], Status: Pen, Time: 12:30 PM -[facility] 250 DO Work Phone: Start: 02-13-2023 STRESSNUC2, Provider : MELVINA HHVI NUCLEAR 01,[id number], Status: Pen, Time: 12:30 PM STRESSNUC2, Provider: MELVINA HHVI NUCLEAR 01,[id number], Status: Pen, Time: 12:30 PM [facility] 250 DO Work Phone: Start: 01-21-2023 FUV, Provider: Terese Braxton, Status: Pen, Time: 12:30 PM FUV, Provider: Terese Braxton, Status: Pen, Time: 12:30 PM -[facility] 250 DO Work Phone: Start: 01-09-2023 ECHO, Provider: AME GABRIEL HHVI ULTRASOUND 01,[id number], Status: Pen, Time: 2:30 PM ECHO, Provider: MELVINA HHVI ULTRASOUND 01,[id number], Status: Pen, Time: 2:30 PM -[facility] 250 DO Work Phone: Start: 2017 Administration of varicella zoster vaccine Zoster (Shingles) Vaccine (1 of 2) [facility] Start: 2017 Zoster Vaccines (1 of 2) Zoster Vacc ken (1 of 2) [facility] Start: 01-20-2016 Hepatitis B Vaccines (2 of 3 - 19+ 3-dose series) Hepatitis B Vaccines (2 of 3 - 19+ 3-dose series) [facility] Start: 2007 Screening for malign ant neoplasm of breast Mammogram [facility] Start: 1988 Screening for malign ant neoplasm of cervix [facility] Start: 1985 Diabetes mellitus screening Diabetes Screening [facility] Start: 1985 Hepatitis C screening Hepatitis C Sc reening [facility] Start: 1979 Depression Screening Depression Scre [facility] Start: 1973 Pneumococcal Vaccine : Pediatrics (0 to 5 Years) and At-Risk Patients (6 to 64 Years) (1 - PCV) Pneumococcal Vaccine: Pediatrics (0 to 5 Years) and At-Risk Patients (6 to 64 Years) (1 - PCV) [facility] Start: 1973 Pneumococcal Vaccine : Pediatrics (0 to 5 Years) and At-Risk Patients (6 to 64 Years) (1 of 2 - PCV) Pneumococcal Vaccine: Pediatrics (0 to 5 Years) and At-Risk Patients (6 to 64 Years) (1 of 2 - PCV) [facility] Start: 1968 MMR Vaccines (1 of 1 - Standard series) MMR Vaccines (1 of 1 - Standard series) [facility] Start: 1967 COVID-19 Vaccine (#1) COVID-19 Vacci ne (#1) [facility] Start: 1967 HIV screening HIV Screening [facility] Start: 1967 Lipid panel Lipid Panel [facility] Start: 1967 Screening for malign ant neoplasm of colon [facility] Start: 1967 Yearly Adult Physical Yearly Adult P hysical [facility] Thiamine [Mass/volum e] in Blood Thiamin Vitamin B1, whole blood Lab Routine Morbid obesity (CMS-HCC) Hypertension, unspecified type 11/06/2023 1:20 PM EST [facility] Work Phone: Thiamine [Moles/volu me] in Blood [facility] Immunizations Immunization Date Immunization Notes Care Provider Juany nguyen 12-23-2015 hepatitis B vaccine, adult dosage Awais Oberer Other [id number] Other 12-23-2015 influenza, seasonal, injectable Awais L Oberer Work Phone: [facility] 250 DO Work Phone: 12-23-2015 tetanus toxoid, reduced diphtheria toxoid, and acellular pertussis vaccine, adsorbed Awais L Oberer Work Phone: [facility] 250 DO Work Phone: 12-23-2015 influenza virus vaccine, unspecified formulation Terese Braxton MD Work Phone: [facility] Work Phone: 06-23-2014 tetanus toxoid, reduced diphtheria toxoid, and acellular pertussis vaccine, adsorbed Awais Oberer Other [id number] Other 06-25-1994 influenza, seasonal, injectable Awais Oberer Other [id number] Other NEGATED: Highlighted row has not occurred!01-18-2022 influenza, seasonal, injectable Awais Oberer Other [id number] Other NEGATED: Highlighted row has not occurred!12-30-2020 influenza, seasonal, injectable Patient Objection Awais Oberer Other [id number] Other NEGATED: Highlighted row has not occurred!09-20-2020 influenza, seasonal, injectable Patient Objection Awais Oberer Other [id number] Other NEGATED: Highlighted row has not occurred!08-06-2019 influenza, seasonal, injectable Patient Objection Awais Oberer Other [id number] Other Payers Date Payer Category Payer Self-pay [id number] 2023 Medicaid [facility] MEDICAID O [id number] 2023-Present [phone] [address] [place] [address] [id number] 2021 Medicaid (Managed Care) [employer] [id number] 2021 Unknown 2021 Medicaid [id number] 1967 Unknown [id number] 12.13.830.1.623190.3.579.2. 593 1967 Unknown [id number] 2..1.030272.3.579.2. 1067 1967 Unknown [id number] 2.840.1.687226.3.579.2. 1067 1967 Unknown [id number] 2.16840.1.370844.3.579.2. 1067 1967 Unknown [id number] 2.0.1.150472.3.579.2. 1067 1967 Unknown [id number] 2.0.1.930404.3.579.2. 356 1967 Unknown [id number] 2.16.840.1.160827.3.579.2. 356 1967 Unknown [id number] 2.16.840.1.840934.3.579.2. 356 1967 Unknown [id number] 2.16.840.1.462631.3.579.2. 356 1967 Unknown [id number] 2.16.840.1.379868.3.579.2. 1285 1967 Unknown [id number] 2.16.840.1.918016.3.579.2. 1285 1967 Unknown [id number] 2.16840.1.137952.3.579.2. 1285 1967 Unknown [id number] 2.16840.1.588080.3.579.2. 1285 1967 Unknown [id number] 2.840.1.743695.3.579.2. 1285 1967 Unknown [id number] 2.840.1.805172.3.579.2. 1285 1967 Unknown [id number] 2.840.1.632725.3.579.2. 1285 1967 Unknown [id number] 2.16840.1.221363.3.579.2. 1285 1967 Unknown [id number] 2.840.1.275837.3.579.2. 1285 1967 Unknown [id number] 2.840.1.731396.3.579.2. 1285 1967 Unknown [id number] 2.16840.1.718329.3.579.2. 1285 1967 Unknown [id number] 2.16840.1.076592.3.579.2. 4 1967 Unknown [id number] 2.16840.1.774654.3.579.2. 1244 1959 Unknown [id number] 2.16.840.1.919384.19 Unknown [id number] 2.16.840.1.839664.3.579.2. 531 Unknown [id number] 2.16.840.1.441436.3.579.2. 531 Unknown [id number] 2.16.840.1.670238.3.579.2. 531 Social History Date Type Detail Facility Unknown if ever smoked [facility] Other Start: 08-01-2023 End: 02-10-2024 Sex Assigned At [facility] Other Start: 01-30-2021 End: 01-30-2021 Tobacco smoking status NHIS Smoker (finding) [facility] Start: 1965 Sex Assigned At Female F [facility] Start: 08-01-2023 End: 02-10-2024 No illicit drug use No illicit drug use -[facility] 250 DO Work Phone: Comment on above: 1 PPD; 1-5 CIGGS DAILY; Start: 08-01-2023 Tobacco smoking status NHIS Smokes tobacco daily [facility] Work Phone: End: 10-28-2022 History of tobacco use Cigarette Smoker [facility] Work Phone: Start: 08-01-2023 Tobacco use and exposure Former smokeless tobacco user [facility] Work Phone: Start: 08-01-2023 End: 11-06-2023 Alcohol intake Current drinker of alcohol (finding) [facility] Work Phone: Start: 08-01-2023 Tobacco Comment vape [facility] Work Phone: Start: 02-07-2023 End: 08-01-2023 Alcohol Comment social [facility] Work Phone: Start: 1965 Sex Assigned At Not on file U [facility] Work Phone: Start: 07-22-2023 End: 08-24-2024 Exposure to SARS-CoV-2 (event) Not sure [facility] Start: 11-06-2023 Tobacco smoking status NHIS Ex-smoker [facility] Start: 11-06-2023 Tobacco use and exposure Smokeless tobacco non-user [facility] Housing Instability Unknown [facility] Start: 11-26-2023 End: 08-24-2024 Alcohol intake Ex-drinker (finding) [facility] How often to you hav e a drink containing alcohol? Monthly or less [facility] How many standard drinks containing alcohol do you have on a typical day? 1 or 2 [facility] How often do you hav e 6 or more drinks on 1 occasion? Never [facility] Start: 02-10-2024 Gender identity Identifies as female gender (finding) [facility] Work Phone: Start: 02-10-2024 Sexual orientation Heterosexual (fin ding) [facility] Work Phone: NEGATED: Highlighted row [facility] Clinical Notes 10-28-2008 to 08-24-2024 Terese Braxton MD - 08/24/2024 11:30 AM EDTPatient InstructionsTerese Braxton MD - 02/10/2024 10:30 AM EDTPatient InstructionsTelephone Encounter - Jaz Marx RN - 12/16/2023 12:03 PM EST Note Date & Type Note Facility 08-24-2024 History of Present illness Narrative 6 month FU. Subjective : Lost 50 pounds since last office visit 6 months ago. Interval review of systems is negative for chest discomfort pressure tightness heaviness orthopnea paroxysmal nocturnal dyspnea dependent edema or claudication TIA or CVA type symptoms or bleeding diathesis Occasional dizziness with changes in posture and if she bends down and straightens herself up. History so Far : 1. Progressively worsening [...] post Da-en-Y gastric bypass surgery October 2023 with loss of 100 pounds as of 08/24/2024 office visit Objective Wt Readings from Last 3 Encounters: 08/24/24 93.6 kg (206 lb 6.4 oz) 02/10/24 116 kg (256 lb) 08/01/23 140 kg (308 lb) Vitals: 08/24/24 1124 08/24/24 1146 BP: 120/76 110/72 BP Location: Left arm Left arm Patient Position: Sitting Standing Pulse: 84 Weight: 93.6 kg (206 lb 6.4 oz) Height: 1.575 m (5' 2 ) Physical Exam: Blood pressure decreased significantly in sitting to standing, standing blood pressure in the 120s systolic GENERAL APPEARANCE: in no acute distress. CHEST: [...] Instructions acetaminophen (Tylenol) 500 mg tablet 1 tablet albuterol 5 mg/mL nebulizer solution Take by nebulization. Use 0.5 ml in 2-3 ml of saline every 4-6 hours as needed for cough and wheeze albuterol 90 mcg/actuation inhaler 1-2 puffs calcium citrate-vitamin D3 (Citracal+D) 315 mg-5 mcg (200 unit) tablet 1 tablet, Once Weekly cholecalciferol (VITAMIN D-3) 50,000 Units, Once Weekly diclofenac sodium (Voltaren) 1 % gel gel Apply topically. Apply sparingly to affected area once daily fluticasone (Flonase) 50 mcg/actuation nasal spray 1 spray, Daily fluticasone (Flovent Diskus) 100 mcg/actuation diskus inhaler 1 puff, 2 times daily RT hydroCHLOROthiazide (HYDRODIURIL) 50 mg, oral, As needed, As needed lisinopril 20 mg, oral, Daily magnesium oxide (MAG-OX) 400 mg, oral, Daily montelukast (SINGULAIR) 10 mg, Daily omeprazole (PRILOSEC) 40 mg, Daily [id number] fumarate-FA () 28-800 mg-mcg tablet rosuvastatin (CRESTOR) 20 mg, oral, Daily spironolactone (ALDACTONE) 25 mg, oral, Daily Allergies Allergen Reactions Aspirin Unknown Bee Venom Protein (Honey Bee) Swelling Nsaids (Non-Steroidal Anti-Inflammatory Drug) Unknown Zoloft [Sertraline] Confusion Gabapentin Drowsiness Latex Rash Ultram [Tramadol] Hives Ceftin [Cefuroxime Axetil] Rash LABS: July 2024-hemoglobin 14 hematocrit 41.5 platelets 1 78,000 sodium 140 potassium 4 GFR greater than 60 creatinine 0.78 liver enzymes normal LDL cholesterol 61 total cholesterol 147 triglycerides 185 HDL 49 Patient Active Problem List Diagnosis Date Noted BMI 37.0-37.9, adult 08/24/2024 Hypokalemia 02/10/2024 Medication course changed 02/10/2024 S/P gastric bypass 02/10/2024 Encounter to discuss test results 08/01/2023 Pre-diabetes 08/01/2023 PVC (premature ventricular contraction) 08/01/2023 Abnormal ECG 07/31/2023 Clotting disorder (Multi) 07/31/2023 Disturbance, sleep 07/31/2023 Fatigue 07/31/2023 Hypertensive heart disease without CHF 07/31/2023 Hyperlipemia, mixed 07/31/2023 SOB (shortness of breath) 07/31/2023 Palpitations 07/31/2023 Current every day smoker 07/31/2023 Assessment: 1. Hypertensive heart disease without CHF Follow Up In Cardiology Follow Up In Cardiology hydroCHLOROthiazide (HYDRODiuril) 50 mg tablet lisinopril 20 mg tablet magnesium oxide (Mag-Ox) 400 mg tablet spironolactone (Aldactone) 25 mg tablet 2. Hyperlipemia, mixed rosuvastatin (Crestor) 40 mg tablet 3. S/P gastric bypass 4. BMI 37.0-37.9, adult 5. Current every day smoker 6. Hypokalemia spironolactone (Aldactone) 25 mg tablet 7. Medication course changed spironolactone (Aldactone) 25 mg tablet Clinical decision making: Patient's dizziness is partly due to orthostatic hypotension or arterial hypotension. This is quite common after aggressive weight loss. Will need to continue to follow and make recommendations on antihypertensive regimen. Today I suggested that she decrease the lisinopril from 40 mg daily to 20 mg daily. This may need to be down titrated further, patient has appointment with primary MD in September 2024. Suggested that she should change posture slowly. Discussed nicotine cessation, currently smoking 1 pack/day Patient did not want me to cut back her diuretics because of tendency for lower extremity edema. She did not have any edema today. She is currently on rosuvastatin 20 mg daily because the 40 mg daily caused myalgia. Follow up : 6 months Provider Attestation - Scribe documentation All medical record entries made by the Scribe were at my direction and personally dictated by me. I have reviewed the chart and agree that the record accurately reflects my personal performance of the history, physical exam, discussion and plan. Scribe Attestation By signing my name below, I, Maricarmen Portillo LPN attest that this documentation has been prepared under the direction and in the presence of Terese Braxton MD. documented in this encounter [facility] Work Phone: 08-24-2024 Instructions Kristyn Castañeda LPN - 08/24/2024 11:30 AM EDT Please bring all medicines, vitamins, and herbal supplements with you when you come to the office. Prescriptions will not be filled unless you are compliant with your follow up appointments or have a follow up appointment scheduled as per instruction of your physician. Refills should be requested at the time of your visit. BMI was above normal measurement. Current weight: 93.6 kg (206 lb 6.4 oz) Weight change since last visit (-) denotes wt loss -49.6 lbs Weight loss needed to achieve BMI 25: 70 Lbs Weight loss needed to achieve BMI 30: 42.7 Lbs Advised to Increase physical activity. documented in this encounter [facility] Work Phone: 02-10-2024 History of Present illness Narrative Last [...] redirect to the Timeline version of the [employer]. Wt Readings from Last 3 Encounters: [...] oral, Daily, Do not crush or chew. [id number] fumarate-FA () 28-800 mg-mcg tablet rosuvastatin (CRESTOR) [...] Attestation By signing my name below, I, Maricarmen Simons LPN attest that this documentation has been prepared under the direction and in the presence of Terese Braxton MD. documented in this encounter [facility] Work Phone: 02-10-2024 Instructions Melquiades Ahmadi MA [...] of your visit. documented in this encounter [facility] Work Phone: 12-16-2023 Miscellaneous Notes Patient needed new RX for vitamins due to having surgery 10/2023. Patient states insurance will pay for vitamins now that she has had surgery. New RX entered. documented in this encounter [facility] 12-16-2023 Telephone encounter Note Patient needed new RX for vitamins due to having surgery 10/2023. Patient states insurance will pay for vitamins now that she has had surgery. New RX entered. [facility] 11-26-2023 History of Present illness Narrative Summary: One week s/p RY, [place], Dr. Kidd Images from the original note were not included. [facility] [address] [place] [id number] Subjective Patient ID: Paige Mccarty is a [...] Weight and Comorbid Conditions: 1. 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 The [place] [employer] recommends a Vitamin D [...] developed and its performance characteristics determined by [facility]'s Jose Pino [facility] Pathology and Laboratory Medicine [place] ([facility]). It has not been cleared or approved by the FDA. -[facility] is regulated under CLIA as qualified to perform high-complexity testing. This test is used for clinical purposes. It should not be regarded as investigational or for research. Test Performed By: [facility] [employer] [address] [place] [address] School Bus Attendant: Alfredo Chu III, M.D. [place] #[id number]^ Vitals and Bariatric Vitals: Vitals: 11/26/23 0847 [...] Check blood pressure at home and contact financial operations consultant or PCP regarding dosing of lisinopril. Labs reviewed with patient. Vitamin D deficiency - supplement and recheck in 3 months Lifelong avoidance of all NSAIDs and tobacco products to reduce risk of anastomotic ulcer formation. Continue PNV or MVT, calcium and vitamin B12 for life Follow up with biodiesel product development manager at 6 weeks postop Follow up labs at 3 months, draw labs one week before appointment Follow up with ENTRY LEVEL FINANCE/PA at 3 months Yoli Cha PA-C 11/26/23 1101 documented in this encounter [email or web address] 11-26-2023 Instructions Yoli Cha PA-C - 11/26/2023 [...] daily and anytime you feel dizzy. Contact financial operations consultant or PCP regarding dosing of blood pressure medication. Continue PNV or MVT, calcium and vitamin B12 for life Follow up with biodiesel product development manager at 6 weeks postop Follow up labs at 3 months, draw labs one week before appointment Follow up with ENTRY LEVEL FINANCE/PA at 3 months documented in this encounter [email or web address] 11-06-2023 History and physical note PRE-ADMISSION TESTING HISTORY AND PHYSICAL EXAM DATE: 11/06/23 PCP: Awais Bright DO HISTORY OF PRESENT ILLNESS: Paige Mccarty, a 58 y.o. White or female, presents to [facility] for a pre-surgical H&P. 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 Henao mechatronics engineer- will receive DDAVP infusion the day before [...] the most recent lab values available in [facility] at the time of the office visit and additional labs may have been drawn since that time. ASSESSMENT / DIAGNOSIS: MORBID OBESITY, HYPERTENSION PLAN: Paige Mccarty is scheduled for Davinci Bypass Gastric Da En Y on 11/20/[address] Kidd. DELMAR Harden 11/06/23 1503 [employer] Work Phone: 11-06-2023 History and physical note PRE-ADMISSION TESTING HISTORY AND PHYSICAL EXAM DATE: 11/06/23 PCP: Awais Bright DO HISTORY OF PRESENT ILLNESS: Paige Mccarty, a 58 y.o. White or female, presents to [facility] for a pre-surgical H&P. 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 No pertinent family [...] Delta storage pool deficiency-followed by Dr. Henao mechatronics engineer- will receive DDAVP infusion the day before [...] the most recent lab values available in [facility] at the time of the office visit and additional labs may have been drawn since that time. ASSESSMENT / DIAGNOSIS: MORBID OBESITY, HYPERTENSION PLAN: Paige Mccarty is scheduled for Davinci Bypass Gastric Da En Y on 11/20/[address] Kidd. DELMAR Harden 11/06/23 1503 documented in this encounter [facility] 11-06-2023 Instructions Adrianne Peoples RN - 11/06/2023 [...] clean clothes. Your surgery/procedure is scheduled at [facility] on 11-20-2023 at 9:30am Arrival Time 7:30am [facility] Address: [address] [place] [address] Park in Parking lot located on [facility]. Report to the Entrance B. Check in at the information desk the surgery. The waiting room located on the second floor. If you have any questions prior to surgery, please call Pre-Admission Clinic at [phone] between 7:30 am and 4:30 pm Saturday through Saturday. If you have questions the morning of surgery, please call the Pre-op Department at [phone]. PLEASE FOLLOW THESE INSTRUCTIONS OR YOUR SURGERY [...] would like to schedule therapy at a [facility] facility, please call [phone] ([phone]). Do not use lotions, creams, powders, perfume, make up, cologne or after-shaves day of surgery. Remove ALL jewelry including wedding rings, body piercings,hair extensions that contain metal, nail moldovan, make-up, and contact lens. You may brush [...] RIGHTS AND RESPONSIBILITIES As a patient at [facility], you have the right to: Receive medical care and be informed of who is taking care of you Be treated with dignity and respect Have a family member/sales representative printing of choice and your physician notified of your admission Receive information and actively participate in decisions about your care and treatment Refuse care, treatment and services Decide who may provide your support and speak for you Access alevism and spiritual services Participate in ethical issues [...] of hospital charges and payment methods Patient/patient sales representative printing responsibilities are to: Provide information about health status to facilitate care, treatment and services Follow the treatment, plan, keep appointments and speak up when you do not understand the plan Respect the rights of other patients and healthcare personnel Follow organizational rules and regulations that support quality care and a safe environment Fulfill financial obligations as promptly as possible documented in this encounter [facility] 10-14-2023 Evaluation note Encounter Date Diagnosis Assessment Notes Sep, Mixed hyperlipidemia (ICD-10 - E78.2) [id number] Other [id number] Evaluation note* Encounter Date Diagnosis Assessment Notes [...] profile, hemoglobin A1c and sooner as needed [id number] Other 10-05-2023 History of Present illness Narrative* [...] ratio from my perspective. [facility] Work Phone: [phone]) 642-771610-05-2023 Instructions* Patient Instructions* Melquiades Ahmadi MA - [...] time of your visit. [facility] Work Phone: 1(389) 847-302907-31-2023 Evaluation note* Encounter Date Diagnosis Assessment Notes [...] Apr, Morbid obesity (ICD- 10 - E66.01) [id number] Other 06-29-2023 Reason for visit Narrative1-2 MONTH/labs, Pharmacy: [facility], refills: All meds, increased Lisinopril and HCTZ [...] Ozempic and cover 2 different bariatric programs., [place] [facility], [place] [facility] x-ray, done at [facility] in February, [facility] hematology, BP, , [facility] Other 06-27-2023 Evaluation note* Encounter Date Diagnosis Assessment Notes Treatment Notes Treatment Clinical Notes Mar, Moderate persistent asthma without complication (ICD-10 - J45.40) Mar, Primary osteoarthritis of left knee (ICD-10 - M17.12) [id number] Other 06-27-2023 Evaluation note* Encounter Date Diagnosis [...] order her mammograms to be done at [facility] Adrianne Su 04/23/2023 11:33:16 AM > 05.15.23 mammogram order faxed to [facility] , Health screenings for women material [...] Last visit I referred her to the [facility] medical bariatric clinic to see if [...] lab panel because of her medical complexity. [id number] Other 03-01-2023 History of Present illness Narrative* [...] Scheduled for bariatric surgery next month in [place], going through different aspects of work-up. * [...] results, can continue current dose of atorvastatin. -[facility] [employer] 250 DO Work Phone: 1([phone]) 430-234812-29-2022 Evaluation note* Encounter Date Diagnosis Assessment Notes Treatment Notes Treatment Clinical Notes Sep, Essential (primary) hypertension (ICD-10 - I10) [facility] Other 12-27-2022 Evaluation note* Encounter Date Diagnosis [...] pulmonary, etc. [facility]. In light of her significant symptoms, we will also obtain another chest x-ray today. Also refer to [facility]. Discussed consider cardiac component. She does [...] sooner as needed., Hydrochlorothiazide material was published [id number] Other 11-11-2022 Evaluation note* Encounter Date Diagnosis Assessment Notes Treatment Notes Treatment Clinical Notes Aug, Moderate persistent asthma without complication (ICD-10 - J45.40) Aug, Essential (primary) hypertension (ICD-10 - I10) Aug, Primary osteoarthritis of left knee (ICD-10 - M17.12) Aug, GERD (gastroesophageal reflux disease) (ICD-10 - K21.9) [id number] Other 03-24-2022 Evaluation note* Encounter Date Diagnosis [...] or pending above, Omeprazole material was published [id number] Other 07-10-2018 Progress note Author Casey Oliveira [facility] May 06, 2018 2:37pm Note Date/Time May 06, 2018 2:28 pm [facility] [place] [address] Hem/Onc Follow Up Note - OP Signed Patient: Paige Mccarty MR#: [id number] : 1965 Acct:[id number] Age/Sex: 53 / F Type: REG RCR [...] of Therapies Summary of Therapies: 1. DDAVP (0.3mcg/pet478=74sro, round to 40mcg) IV, prn, 30 min [...] planned. -If surgery is needed, consider DDAVP (0.3mcg/zpj405=05tmy, round to 40mcg) IV, prn 30 min prior to surgery. Watch hyponatremia. -If she developed excessive bleeding, consider 2 units of pooled platelets. Repeat dose of DDAVP can be given. (2) Thrombocytopenia Status: Chronic likely immune-related. Platelet count normalized. -See as needed. - Time Spent with Patient Greater than 50% of time spent with patient was for coordination of care (as documented) and [id number]-[id number] counseling of patient and/or family. less than 15 minutes Dictated By: Casey Oliveira MD DD/ 26 Signed By: <Electronically signed by Casey Oliveira MD> 05/06/18 1437 [facility] Work Phone: 1(136) 916-167001-01-2009 History general Narrative - Reported* Type Description Date Medical History asthma - mild persistent Medical History Esophageal reflux Medical History GERD Medical History Nocturnal hypoxia-2008 (sleep study) Dr. Jaquez Medical History Impaired glucose tolerance 2013 Medical History Delta granule storag e pool diseased 2013 Dr. Infante Medical History OA lumbar spine 2015 Xray Medical History Essential HTN 2014 Medical [...] Hospitalization History EGD (neg)- Dr. Avery 11/2007 [id number] Other Consult note Author Abena [facility] March 28, 2023 8:36pm Note Date/Time March 28, 2023 2:15p [facility] [place] [id number] Hem/Onc Consult Note - OP Signed Patient: Paige Mccarty MR#: [id number] : 1965 Acct:[id number] Age/Sex: 57 / F Type: REG RCR [...] her surgeon Dr. López Kidd at [facility] [place] [facility] to inform us [...] not seen anyone in our clinic since 2018. No significant bleeding episodes since that time and she had a superficial scalp cyst removed in [address] Gleason without bleeding issues [facility] - History Attestation statement: The following information [...] of Therapies Summary of Therapies: 1. DDAVP (0.3mcg/zez581=68igi, round to 40mcg) IV, prn, 30 min before surgery. 2. Plan to give DDAVP (0.3mcg/eea851=83ifn, round to 40mcg) Subjective/ROS - Narrative: CONSTITUTIONAL: [...] DDAVP. -With prior surgery, she received DDAVP (0.3mcg/vfr644=56zis, round to 40mcg) IV, prn 30 min [...] for bariatric surgeon Dr. López Kidd in [place]. (3) Encounter for coordination of complex care Will complete DDAVP infusion orders when I am notified of surgical date. - Time with Patient Total Time Spent with Patient (Consult): 60 mins or more - High complexity 90 minute visit for reviewing extensive prior records since initial consultation [id number], surgical clearance form, preparation of DDAVP orders once surgical date isgiven. Coordination of Care & Counseling Time: Greater than 50% of time spent with patient was for coordination of care (as documented) and vbdq-hc-ckpj counseling of patient and/or family. 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 [facility] Work Phone: Evaluation note* Diagnosis Onset Date Resolution Status Delta storage pool disease c hronic Encounter for coordination of complex care chronic Morbid obesity with BMI of 50.0-59.9, adult chronic Thrombocytopenia chronic [facility] Work Phone: Evaluation note* Diagnosis Hypertensive heart disease without CHF- Primary Encounter to discuss test results Other specified counseling SOB (shortness of breath) Shortness of breath Hyperlipemia, mixed Mixed hyperlipidemia Pre-diabetes Other abnormal glucose BMI 50.0-59.9, adult ([facility]) PVC (premature ventricular contraction) Other premature beats Current every day smoker documented in this encounter [facility] Work Phone: Evaluation note* Diagnosis Morbid obesity ([facility]) Morbid obesity Hypertension, unspecified type documented in this encounter [facility]* Diagnosis 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 Other and unspecified postsurgical nonabsorption Vitamin D deficiency Post-operative nausea and vomiting Nausea with vomiting [facility] Diagnosis Postsurgical malabsorption- Primary Malnutrition following gastrointestinal surgery Other and unspecified postsurgical nonabsorption History of Da-en-Y gastric bypass [facility] Diagnosis S/P gastric bypass- Primary Bariatric surgery status Hypertensive heart disease without CHF Hyperlipemia, mixed Mixed hyperlipidemia Current every day smoker Hypokalemia Hypopotassemia Medication course changed BMI 45.0-49.9, adult (Multi) documented in this encounter [facility] Work Phone: Evaluation note* Diagnosis Onset Date [...] unspecified with hematuria noneactive Hair loss noneactive [facility] Work Phone: Evaluation note* Diagnosis Hypertensive heart disease without CHF Hyperlipemia, mixed Mixed hyperlipidemia S/P gastric bypass Bariatric surgery status BMI 37.0-37.9, adult Current every day smoker Hypokalemia Hypopotassemia Medication course changed documented in this encounter [facility] Work Phone: History of Present [...] be evaluated in the emergency department at [place] she is on multiple inhalers. She reports [...] shows sinus rhythm at 86 bpm with AL interval of 170 ms QRS duration 96 [...] arise, * Sincerely, * Terese Braxton MD FAC * Addendum, this patient would benefit from statin therapy. Her LDL goal would be closer to 70 would recommend rosuvastatin 40 mg daily with lipid and liver to be checked 3 months after. [facility] Work Phone: History of Present illness Narrative* [...] * 20. BNP level 16 January 2023 -[facility] 250 DO Work Phone: InstructionsNot on filedocumented in this encounter [facility] Reason DYSPNEA Diagnosis 1 Dyspnea (R06.00) Referral Organization [facility] Lela Velasquez Referring Provider First Name Awais Referring Provider Last Name Johanna Referring Provider Specialty Family Prac jennifer Referred Organization [facility] Referred Provider Dung Marcial Referred Address [address] [facility] [address] [place] [address] Referred Provider Specialty Cardiology Referral Priority Routine Referral Appointment Date 2022-11-22 General Notes Greta Camilo 2021 01:53:19 PM >referral sent [id number] Other Reason for referral (narrative)* Consultation (Routine) - Authorized Specialty Diagnoses / Procedures Referred By Contac t Referred To Contact Cardiology Diagnoses Hypertensive heart disease without CHF Procedures Follow Up In Cardiology Terese Braxton MD [address] [place] [address] [address] [place] [address] Referral ID Status Reason Start Date Expiration Date V isits Requested Visits Authorized [id number] Authorized 08/01/2023 01/28/2024 1 1 [facility] Work Phone: Summary Purpose Family History No [...] Referred By Shirley lopez Referred To Contact Diagnoses Hyperlipemia, mixed Terese Braxton MD [address] [address] Referral ID Status Reason Start Date Expiration Date Visits Re quested Visits Authorized [id number] Closed 1 1 Specialty Diagnoses / Procedures Referred By Shirley lopez Referred To Contact Cardiology Diagnoses Hypertensive heart disease without CHF Procedures Follow Up In Cardiology Terese Braxton MD [address] [facility] [address] [place] [address] Terese Braxton MD [address] [address] Referral ID Status Reason Start Date Expiration Date V isits Requested Visits Authorized [id number] Authorized 02/10/2024 02/09/2025 1 1 Additional Source Comments REASON FOR VISIT (unrecogniz ed section and content) Reason Comments Results Testing results Reason Comments Post-op 1 week bypass post-o p. -24-24 Reason Comments Follow-up 6m Specialty Diagnoses / Procedures Referred By Shirley lopez Referred To Contact Cardiology Diagnoses Hypertensive heart disease without CHF Procedures Follow Up In Cardiology Terese Braxton MD [address] [facility] [address] [place] [address] Referral ID Status Reason Start Date Expiration Date Visits Re quested Visits Authorized [id number] Closed 08/01/2023 01/28/2024 1 1 Reason Comments Follow-up 6 month Specialty Diagnoses / Procedures Referred By Shirley lopez Referred To Contact Cardiology Diagnoses Hypertensive heart disease without CHF Procedures Follow Up In Cardiology Terese Braxton MD Phone: tel: fax: Terese Braxton MD [address] [facility] [address] [place] [address] Phone: tel: fax: Referral ID Status Reason Start Date Expiration Date V isits Requested Visits Authorized [id number] Authorized 02/10/2024 02/09/2025 1 1 INFORMATION SOURCE (unrecogn ized section and content) DATE CREATED AUTHOR 09/27/2022 [facility] DATE CREATED AUTHOR AUTHOR'S ORGANIZ ATION 05/04/2023 [facility] DATE CREATED AUTHOR AUTHOR'S ORGANIZ ATION 07/31/2023 [facility] DATE CREATED AUTHOR AUTHOR'S ORGANIZ ATION 08/04/2023 [employer] DATE CREATED AUTHOR AUTHOR'S ORGANIZ ATION 04/16/2024 [facility] DATE CREATED AUTHOR AUTHOR'S ORGANIZ ATION 04/18/2024 [facility] DATE CREATED AUTHOR AUTHOR'S ORGANIZ ATION 08/30/2024 [facility] Contact [employer] Teams (unrecognized sec tion and content) Team Status: Active Member Role Status Dates Awais Bright DO Primary Care Provider Active Team Status: Active Member Role Status Dates Awais Bright DO Primary Care Provider Active St art: [...] Active López Kidd MD Referring Provider Active Wringer Operator Relationship Specialty Start Date End Date Awais Bright DO [address] [place] [address] [place] [address] PCP - General 11/22/22 Wringer Operator Relationship Specialty Start Date End Date Awais Bright DO [address] [place] [address] PCP - General Family Medicine 03/13/23 Wringer Operator Relationship Specialty Start Date End Date Awais Bright DO [address] [place] [address] PCP - General Family Medicine 03/13/23 Wringer Operator Relationship Specialty Start Date End Date Awais Bright DO [address] [place] [address] PCP - General Family Medicine 03/13/23 Wringer Operator Relationship Specialty Start Date End Date Awais Bright DO [address] [place] [address] PCP - General Family Medicine 02/10/24 Team Status: Inactive Member Role Status Dates Awais Bright DO Attending Provider Active Start : April 14, 2024 End: April 14, 2024 Wringer Operator Relationship Specialty Start Date End Date Awais Bright DO PCP - General Family Medicine 02/10/24 Goals [...] BE BASED ON THE PRIMARY CLINICAL RECORDS. [employer] [facility]. provides no warranty or guarantee of the accuracy or completeness of information in this document.
[2024-10-12 11:09] LABS: Estimated Average Glucose 103 mg/dL; Glycohemoglobin A1C 5.2 % (4.5-6.2)
[2024-10-12 11:19] LABS: Alanine Aminotransferase 13 U/L (14-59); Albumin Globulin Ratio 0.9; Albumin Level 3.3 g/dL (3.4-5.0); Alkaline Phosphatase 75 U/L (46-116); Anion Gap 12.9; Aspartate Amino Transferase 16 U/L (15-37); Bilirubin Direct 0.1 mg/dL (0.0-0.2); Bilirubin Total 0.6 mg/dL (0.2-1.0); Calcium 9.4 mg/dL (8.5-10.1); Chloride 107 mmol/L (98-107); Estimated GFR (African America >60 (>=60 mL/min/1.73m^2); Estimated GFR (Non-African Ame >60 (>=60 mL/min/1.73m^2); Globulin 3.8 g/dL; Glucose 94 mg/dL (74-106); Potassium 3.9 mmol/L (3.5-5.1); Sodium 144 mmol/L (136-145); Total Protein 7.1 g/dL (6.4-8.2)
== END 2024-10-12 10:16 | disposition home or self-care (01) ==
LOC: LAB 10:17
PROVIDERS: PCP Family Medicine; Visit Provider Family Medicine
DX: E78.2 Mixed hyperlipidemia (principal); R73.02 Impaired glucose tolerance (oral); L65.9 Nonscarring hair loss, unspecified
CPT/HCPCS: 36415; 80048; 80076; 83036; 84436; 84443

== ENCOUNTER 2024-11-10 11:31 | Outpatient (OUT) | payer OTHER, SELFPAY ==
[2024-11-10 12:04] LABS: Basophils Percent Auto 0.5 % (0.2-2.0); Eosinophils Absolute Auto 0.1 10^3/uL (0.0-0.7); Eosinophils Percent Auto 1.5 % (0.9-7.0); Hematocrit 42.6 % (36.0-48.0); Hemoglobin 14.4 g/dL (12.0-16.0); Immature Granulocytes Abs Auto 0.01 10^3/uL (0.00-0.03); Immature Granulocytes Pct Auto 0.1 % (0.0-0.5); Lymphocytes Absolute Auto 2.8 10^3/uL (1.2-3.8); Lymphocytes Percent Auto 37.3 % (20.5-60.0); Mean Corpuscular HGB Conc 33.8 g/dL (29.9-35.2); Mean Corpuscular Hemoglobin 30.3 pg (26.7-34.0); Mean Corpuscular Volume 89.7 fL (81.0-99.0); Mean Platelet Volume 11.7 fL (9.5-13.5); Monocytes Absolute Auto 0.4 10^3/uL (0.3-0.8); Monocytes Percent Auto 5.1 % (1.7-12.0); Neutrophils Absolute Auto 4.1 10^3/uL (1.4-6.5); Neutrophils Percent Auto 55.5 % (43.0-75.0); Platelet Count 255 10^3/uL (150-450); Red Blood Count 4.75 10^6/uL (4.20-5.40); Red Cell Distribution Width 12.5 % (11.0-15.0); White Blood Count 7.4 10^3/uL (4.0-11.0)
[2024-11-10 12:38] LABS: Alanine Aminotransferase 15 U/L (14-59); Albumin Globulin Ratio 0.9; Albumin Level 3.5 g/dL (3.4-5.0); Alkaline Phosphatase 76 U/L (46-116); Aspartate Amino Transferase 8 U/L (15-37); Bilirubin Direct 0.2 mg/dL (0.0-0.2); Bilirubin Total 0.6 mg/dL (0.2-1.0); Calcium 9.5 mg/dL (8.5-10.1); Cholesterol 169 mg/dL (<=200); Globulin 3.7 g/dL; HDL Cholesterol 57 mg/dL (40-60); Total Protein 7.2 g/dL (6.4-8.2); Triglycerides 165 mg/dL (<=150)
[2024-11-11 08:10] LABS: Vitamin B12 1487 pg/mL (232-1245)
[2024-11-11 11:09] LABS: PTH, Intact 14 pg/mL (15-65)
== END 2024-11-10 11:32 | disposition home or self-care (01) ==
LOC: LAB 11:32
PROVIDERS: PCP Family Medicine
DX: K91.2 Postsurgical malabsorption, not elsewhere classified (principal); Z98.84 Bariatric surgery status
CPT/HCPCS: 36415; 80061; 80076; 82306; 82310; 82525; 82607; 82746; 83540; 83970; 84425; 84590; 84630; 85025

== ENCOUNTER 2025-02-04 10:37 | Outpatient (OUT) | payer OTHER, SELFPAY ==
[2025-02-04 11:10] LABS: Basophils Percent Auto 0.6 % (0.2-2.0); Eosinophils Absolute Auto 0.1 10^3/uL (0.0-0.7); Eosinophils Percent Auto 1.4 % (0.9-7.0); Hematocrit 40.6 % (36.0-48.0); Hemoglobin 13.8 g/dL (12.0-16.0); Immature Granulocytes Abs Auto 0.01 10^3/uL (0.00-0.03); Immature Granulocytes Pct Auto 0.2 % (0.0-0.5); Lymphocytes Absolute Auto 2.8 10^3/uL (1.2-3.8); Lymphocytes Percent Auto 44.8 % (20.5-60.0); Mean Corpuscular Hemoglobin 30.8 pg (26.7-34.0); Mean Corpuscular Volume 90.6 fL (81.0-99.0); Mean Platelet Volume 11.5 fL (9.5-13.5); Monocytes Absolute Auto 0.4 10^3/uL (0.3-0.8); Neutrophils Absolute Auto 2.9 10^3/uL (1.4-6.5); Platelet Count 218 10^3/uL (150-450); Red Blood Count 4.48 10^6/uL (4.20-5.40); Red Cell Distribution Width 12.4 % (11.0-15.0); White Blood Count 6.3 10^3/uL (4.0-11.0)
[2025-02-04 12:27] LABS: Alanine Aminotransferase 16 U/L (14-59); Aspartate Amino Transferase 14 U/L (15-37); BUN Creatinine Ratio 20.2; Calcium 9.6 mg/dL (8.5-10.1); Carbon Dioxide 28.1 mmol/L (21.0-32.0); Chloride 106 mmol/L (98-107); Chol HDL Ratio 3.2; Cholesterol 165 mg/dL (<=200); Estimated GFR (African America >60 (>=60 mL/min/1.73m^2); Estimated GFR (Non-African Ame >60 (>=60 mL/min/1.73m^2); Glucose 92 mg/dL (74-106); HDL Cholesterol 52 mg/dL (40-60); Potassium 4.1 mmol/L (3.5-5.1); Sodium 142 mmol/L (136-145); Triglycerides 164 mg/dL (<=150); VLDL CHOLESTEROL 32.8 mg/dL
== END 2025-02-04 10:38 | disposition home or self-care (01) ==
LOC: LAB 10:39
PROVIDERS: PCP Family Medicine; Visit Provider Internal Medicine Interventional Cardiology
DX: I11.9 Hypertensive heart disease without heart failure (principal); E78.2 Mixed hyperlipidemia
CPT/HCPCS: 36415; 80048; 80061; 84450; 84460; 85025

== ENCOUNTER 2025-04-05 10:13 | Outpatient (OUT) | payer OTHER, SELFPAY ==
--- OUTSIDE RECORDS SUMMARY | 2025-04-05 10:16 | XMS_ITS | Encounter Summary ---
Author Organization [employer] Address [facility]-[id number] [address] [place] [address] Care Team Providers Care Inspector Eyeglass Frames Name Role Phone FacundoLobito avery Primary Care Provider [phone] Encounter Details Date Type Department Care Team (Late Contact Info) Description 05/13/2023 External Surgery [facility] [address] [facility] [address] [place] [address] Sherie Foley, ACCOUNTS PAYABLE SPECIALIST Social History Tobacco Use Types Packs/Day Years Used Date Smoking Tobacco: Every Day Cigarettes Smokeless Tobacco: Never Alcohol Use Standard Drinks/Week Comments Yes 0 (1 standard drink = 0.6 oz pur e alcohol) social Childcare Answer Date Recorded Childcare Unknown 04/06/2019 Employment Answer Date Recorded Employment Unknown 04/06/2019 Comments Unknown Sex and Gender Information Value Date Recorded Sex Assigned at Not on file Legal Sex Female 12:08 PM EDT Gender Identity Not on file Sexual Orientation Not on file documented as of this encounter Plan of Treatment Upcoming Encounters Date Type Department Care Team (Late Contact Info) Description 11/18/2025 1:00 PM EST Office Visit [facility] [address] [facility] [place] [address] Campbell Kidd MD [address] [facility], [address] [address] Yoli Kohler, PA-C [address] [facility] [address] [place] [address] documented as of this encounter Visit Diagnoses Not on filedocumented in this encounter Care Teams Inspector Eyeglass Frames Relationship Specialty Start Date End Date Lobito Spencer DO PCP - General Family Medicine 03/13/23 documented as of this encounter
--- OUTSIDE RECORDS SUMMARY | 2025-04-05 10:16 | XMS_ITS | Encounter Summary ---
Author Organization [employer] Address [facility]-[id number] [address] [place] [address] Care Team Providers Care Store Sales Leader Name Role Phone SanyaLobito chapin Primary Care Provider [phone] Encounter Details Date Type Department Care Team (Late Contact Info) Description 05/29/2023 External Surgery [facility] [address] [facility] [address] [place] [address] Dixie Roberts CMA Social History Tobacco Use Types Packs/Day Years [...] Office Visit [facility] [address] [facility]. [address] [place] [address] Campbell Kidd MD [address] [facility], [address] [address] Yoli Kohler, PA-C [address] [facility] [address] [place] [address] documented as of this encounter Visit Diagnoses Not on filedocumented in this encounter Care Teams Store Sales Leader Relationship Specialty Start Date End Date Lobito Spencer DO PCP - General Family Medicine 03/13/23 documented as of this encounter
--- OUTSIDE RECORDS SUMMARY | 2025-04-05 10:17 | XMS_ITS | Encounter Summary ---
Author Organization [employer] Address [facility] [place][id number] [address] [place] [address] Care Team Providers Care Radio Communications Mechanician Name Role Phone FacundoLobito avery Primary Care Provider [phone] Encounter Details Date Type Department Care Team (Late Contact Info) Description 05/03/2023 Orders Only [facility] [address] [place] [address] [address] [place] [address] Campbell Kidd MD [address] [address] , [address] [id number] Social History Tobacco Use Types Packs/Day Years [...] Office Visit [facility] [address] [facility]. [address] [place] [address] Campbell Kidd MD [address] , [address] [phone] Yoli Kohler, KARINAC [address] [facility] [address] [place] [address] documented as of this encounter Procedures Procedure Name Priority Date/Time Associated Diagnosis Comments MULTIPLE LABS Routine 04/15/2023 MOTILITY STUDY, ESOPHAGEAL Routine 03/14/2023 documented in this encounter Results * Multiple labs (04/15/2023) us Campbell Kidd MD DE IMAGING Final Resul t Performing Organization Address [facility] Co de Phone Number MANUALLY TRANSCRIBED RESULTS * Motility study, esophageal: (03/14/2023) Campbell Kidd MD GI PROCEDURE ORDERABLES Fin al Result Performing Organization Address [facility] de Phone Number MANUALLY TRANSCRIBED RESULTS documented in this encounter Visit Diagnoses Not on filedocumented in this encounter Care Teams Radio Communications Mechanician Relationship Specialty Start Date End Date Lobito Spencer DO PCP - General Family Medicine 03/13/23 documented as of this encounter
--- OUTSIDE RECORDS SUMMARY | 2025-04-05 10:17 | XMS_ITS | Encounter Summary ---
Author Organization [facility] Address [address] [address] Phone Care Team Providers Care Traffic Manager Name Role Phone FacundoLobito avery Codi VELÁSQUEZ Primary Care Provider [phone] Terese Braxton MD Unavailable Terese Braxton MD Unavailable Terese Braxton MD Unavailable Encounter Details Date Type Department Care Team (Late st Contact Info) Description 05/31/2024 Patient Risk Score [facility] Care Management [address] [place] [address] Social History Tobacco Use Types Packs/Day Years Used Date Smoking Tobacco: Every Day Cigarettes Smokeless Tobacco: Former Comments:vape Alcohol Use Standard Drinks/Week Comments Not Currently 0 (1 standard drink = 0.6 oz pur e alcohol) social PHQ-2 Answer Date Recorded Patient Health Questionnaire-2 Score 0 08/01/2023 Comments Unknown Sex and Gender Information Value Date Recorded Sex Assigned at Female 02/10/2024 11:59 AM EDT Legal Sex Female 1:33 PM EST Gender Identity Female 02/10/2024 11:59 AM EDT Sexual Orientation Straight 02/10/2024 11 :59 AM EDT documented as of this encounter Plan of Treatment Upcoming Encounters Date Type Department Care Team (Late st Contact Info) Description 02/04/2026 2:30 PM EDT Office Visit [place] [id number] [facility] [address] [place] [address] Terese Braxton MD [address] [place] [address] documented as of this encounter Visit Diagnoses Not on filedocumented in this encounter Additional Health Concerns Assessment Noted Time A fall risk assessment has been complete d for the patient 08/01/2023 11:01 AM EDT documented as of this encounter Care Teams Traffic Manager Relationship Specialty Start Date End Date Lobito Spencer DO PCP - General Family Medicine 02/10/24 Terese Braxton MD [address] [place] [address] PCP - PIGMENT WEIGHER Medicaid PCP 07/28/24 Terese Braxton MD [address] [place] [address] PCP - [facility] PCP 08/28/24 Terese Braxton MD [address] [place] [address] PCP - PIGMENT WEIGHER Medicaid PCP 01/26/25 documented as of this encounter
--- OUTSIDE RECORDS SUMMARY | 2025-04-05 10:17 | XMS_ITS | Encounter Summary ---
Author Organization [facility] Address [address] [address] Phone Care Team Providers Care Surg Tech Name Role Phone Lobito Spencer DO Primary Care Provider [phone] Lobito Spencer DO Primary Care Provider [phone] Terese Braxton MD Unavailable Terese Braxton MD Unavailable Terese Braxton MD Unavailable Terese Braxton MD Unavailable Terese Braxton MD Unavailable Encounter Details Date Type Department Care Team (Late st Contact Info) Description 05/30/2023 Patient Risk Score [facility] Care Management [address] [place] [address] Social History Tobacco Use Types Packs/Day Years Used Date Smoking Tobacco: Never Assessed Comments Unknown Sex and Gender Information Value [...] Description 02/04/2026 2:30 PM EDT Office Visit [place] [address] [place] [address] Terese Braxton MD [address] [place] [address] documented as of this encounter Visit Diagnoses Not on filedocumented in this encounter Care Teams Surg Tech Relationship Specialty Start Date End Date Lobito Spencer DO PCP - General 11/22/22 02/09/24 Lobito Spencer DO PCP - General Family Medicine 02/10/24 Terese Braxton MD [address] [place] [address] PCP - [facility] PCP 10/28/2311/27 Terese Braxton MD [address] [place] [address] PCP - [facility] PCP 02/26/2405/27 Terese Braxton MD [address] [place] [address] PCP - MANAGER MANAGED CARE Medicaid PCP 07/28/24 Terese Braxton MD [address] [place] [phone] PCP - [facility] PCP 08/28/24 Terese Braxton MD [address] [place] [address] PCP - MANAGER MANAGED CARE Medicaid PCP 01/26/25 documented as of this encounter
--- OUTSIDE RECORDS SUMMARY | 2025-04-05 10:17 | XMS_ITS | Encounter Summary ---
Author Organization [employer] Address [facility]-[id number] [address] [place] [address] Care Team Providers Care Actuarial Director Name Role Phone JohannaLobito Primary Care Provider [phone] Encounter Details Date Type Department Care Team (Late Contact Info) Description 09/13/2023 External Surgery [facility] [address] [place] [phone] Dixie Roberts CMA Social History Tobacco Use Types Packs/Day Years Used Date Smoking Tobacco: Every Day Cigarettes Smokeless Tobacco: Never Alcohol Use Standard Drinks/Week Comments Yes 0 (1 standard drink = 0.6 oz pur e alcohol) social Childcare Answer Date Recorded Childcare Unknown 04/06/2019 Employment Answer Date Recorded Employment Unknown 04/06/2019 Hunger Screening Answer Date Recorded Within the past 12 months we worried whether our food would run out before we got money to buy more. Never True 08/23/2023 Within the past 12 months th e food we bought just didn't last and we didn't have money to get more. Never True 08/23/2023 Comments Unknown Sex and Gender Information Value Date Recorded Sex Assigned at Not on file Legal Sex Female 12:08 PM EDT Gender Identity Not on file Sexual Orientation Not on file documented as of this encounter Plan of Treatment Upcoming Encounters Date Type Department Care Team (Late Contact Info) Description 11/18/2025 1:00 PM EST Office Visit [facility] [address] [facility] [address] [place] [address] Campbell Kidd MD [address] [facility] [address] [place] [address] Yoli Kohler, PA-C [address] [facility] [address] [place] [address] documented as of this encounter Visit Diagnoses Not on filedocumented in this encounter Care Teams Actuarial Director Relationship Specialty Start Date End Date Lobito Spencer DO PCP - General Family Medicine 03/13/23 documented as of this encounter
--- OUTSIDE RECORDS SUMMARY | 2025-04-05 10:17 | XMS_ITS | Encounter Summary ---
Author Organization [facility] Address [address] [place] [address] Phone Care Team Providers Care Member Services Coordinator Name Role Phone SanyaLobito chapin Codi DO Primary Care Provider [phone] Lobito Spencer DO Primary Care Provider [phone] Terese Braxton MD Unavailable Terese Braxton MD Unavailable Terese Braxton MD Unavailable Terese Braxton MD Unavailable Terese Braxton MD Unavailable Encounter Details Date Type Department Care Team (Late st Contact Info) Description 07/08/2023 Scanned Document [facility] [address] [place] [address] Conversion, Onbase Social History Tobacco Use Types Packs/Day Years [...] Description 02/04/2026 2:30 PM EDT Office Visit [address] [address] Terese Braxton MD [address] [address] documented as of this encounter Procedures Procedure Name Priority Date/Time Associated Diagnosis Comments ELECTROCARDIOGRAM RHYTHM STRIP 07/08/2023 documented in this encounter Results * ELECTROCARDIOGRAM RHYTHM STRIP (07/08/2023) Narrative 07/08/2023 Ordered by an unspecified provider. us Onbase Conversion ECG ORDERABLES Final Result documented in this encounter Visit Diagnoses Not on filedocumented in this encounter Care Teams Member Services Coordinator Relationship Specialty Start Date End Date Lobito Spencer DO PCP - General 11/22/22 02/09/24 Lobito Spencer DO PCP - General Family Medicine 02/10/24 Terese Braxton MD [address] [place] [address] PCP - [facility] PCP 10/28/2311/27 Terese Braxton MD [address] [place] [address] PCP - [facility] PCP 02/26/2405/27 Terese Braxton MD [address] [place] [address] PCP - [facility] Medicaid PCP 07/28/24 Terese Braxton MD [address] [place] [address] PCP - [facility] MCGRATHO PCP 08/28/24 Terese Braxton MD [address] [address] PCP - [facility] Medicaid PCP 01/26/25 documented as of this encounter
--- OUTSIDE RECORDS SUMMARY | 2025-04-05 10:17 | XMS_ITS | Encounter Summary ---
Author Organization [facility] [employer] Address [facility]-[id number] [address] [place] [address] Care Team Providers Care Research Worker Encyclopedia Name Role Phone Lobito Spencer DO Primary Care Provider [phone] Reason for Visit * Reason Comments Med Refill Encounter Details Date Type Department Care Team (Late st Contact Info) Description 02/12/2024 Refill [facility] [address] [facility]. [address] [place] [phone] Yoli Kohler PA-C [address] [facility] [address] [place] [address] Vitamin D deficiency Social History Tobacco Use Types Packs/Day Years Used Date Smoking Tobacco: Former Cigarettes Q uit: 2022 Smokeless Tobacco: Never Alcohol Use Standard Drinks/Week Comments Not Currently 0 (1 standard drink = 0.6 oz pur e alcohol) social AUDIT-C Answer Date Recorded Q1: How often do you have a drink containing alc ohol? Monthly or less 11/20/2023 Q2: How many drinks containi ng alcohol do you have on a typical day when you are drinking? 1 or 2 11/20/2023 Q3: How often do you have si x or more drinks on one occasion? Never 11/20/2023 PHQ-2 Answer Date Recorded Total Score 6 11/20/2023 Childcare Answer Date Recorded Childcare Unknown 04/06/2019 Employment Answer Date Recorded Employment Unknown 04/06/2019 Hunger Screening Answer Date Recorded Within the past 12 months we worried whether our food would run out before we got money to buy more. Never True 11/26/2023 Within the past 12 months th e food we bought just didn't last and we didn't have money to get more. Never True 11/26/2023 Comments No Sex and Gender Information Value Date Recorded Sex Assigned at Not on file Legal Sex Female 12:08 PM EDT Gender Identity Not on file Sexual Orientation Not on file documented as of this encounter Plan of Treatment Upcoming Encounters Date Type Department Care Team (Late st Contact Info) Description 11/18/2025 1:00 PM EST Office Visit [facility] [address] [facility] [place] [phone] Campbell Kidd MD [address] [facility] [address] [place] [address] Yoli Kohler, PA-C [address] [facility] [address] [place] [address] documented as of this encounter Visit Diagnoses Diagnosis Vitamin D deficiency documented in this encounter Additional Health Concerns Assessment Noted Time PHQ-9 Depression Total Score: 6 11/20/19 24 2:07 PM EST documented as of this encounter Care Teams Research Worker Encyclopedia Relationship Specialty Start Date End Date Lobito Spencer DO PCP - General Family Medicine 03/13/23 documented as of this encounter
--- OUTSIDE RECORDS SUMMARY | 2025-04-05 10:17 | XMS_ITS | Encounter Summary ---
Author Organization [facility] Address [address] [place] [address] Phone Care Team Providers Care National Account Representative Name Role Phone FacundoLobito avery Primary Care Provider [phone] Terese Braxton MD Unavailable Terese Braxton MD Unavailable Encounter Details Date Type Department Care Team (Late st Contact Info) Description 02/04/2025 Scanned Document [facility] [address] [place] [phone] Scanning, Generic Provider Social History Tobacco Use Types Packs/Day Years [...] Description 02/04/2026 2:30 PM EDT Office Visit [address] [address] Terese Braxton MD [address] [address] documented as of this encounter Procedures Procedure Name Priority Date/Time Associated Diagnosis Comments OUTSIDE LAB SCAN 02/04/2025 OUTSIDE LAB SCAN 02/04/2025 documented in this encounter Results * OUTSIDE LAB SCAN (02/04/2025) Narrative 02/04/2025 Ordered by an unspecified provider. us Generic Provider Scanning OUTSIDE SCAN Final Result * OUTSIDE LAB SCAN (02/04/2025) Narrative 02/04/2025 Ordered by an unspecified provider. us Generic Provider Scanning OUTSIDE SCAN Final Result documented in this encounter Visit Diagnoses Not on filedocumented in this encounter Additional Health Concerns Assessment Noted Time A fall risk assessment has been complete d for the patient 08/01/2023 11:01 AM EDT documented as of this encounter Care Teams National Account Representative Relationship Specialty Start Date End Date Lobito Spencer DO PCP - General Family Medicine 02/10/24 Terese Braxton MD [address] [place] [address] PCP - [facility] PCP 08/28/24 Terese Braxton MD [address] [place] [address] PCP - [facility] Medicaid PCP 01/26/25 documented as of this encounter
--- OUTSIDE RECORDS SUMMARY | 2025-04-05 10:17 | XMS_ITS | Encounter Summary ---
Author Organization [facility] Address [address] [place] [address] Phone Care Team Providers Care Fruit Or Nut Farmworker Name Role Phone ObmalissarLobito Codi DO Unavailable ObererLobito DO Primary Care Provider [phone] ObererLobito DO Primary Care Provider [phone] Terese Braxton MD Unavailable Terese Braxton MD Unavailable Terese Braxton MD Unavailable Terese Braxton MD Unavailable Terese Braxton MD Unavailable Encounter Details Date Type Department Care Team (Late st Contact Info) Description 10/23/2022 Orders Only [facility] [address] [place] [address] Conversion, Onbase Social History Tobacco Use Types [...] Description 02/04/2026 2:30 PM EDT Office Visit [facility] [address] [address] [phone] Terese Braxton MD [address] [place] [address] Scheduled Orders Name Type Priority Associated Diagnoses Orde r Schedule OUTSIDE LAB SCAN Lab Ordered: 10/23/2022 documented as of this encounter Visit Diagnoses Not on filedocumented in this encounter Care Teams Fruit Or Nut Farmworker Relationship Specialty Start Date End Date Lobito Spencer DO [address] [facility] [place] [address] PCP - [facility] PCP 10/28/2104/26 Lobito Spencer DO [address] [facility] [place] [address] PCP - General 11/22/22 02/09/24 Lobito Spencer DO [address] [facility] [place] [address] PCP - General Family Medicine 02/10/24 Terese Braxton MD [address] [place] [address] PCP - [facility] PCP 10/28/2311/27 Terese Braxton MD [address] [place] [address] PCP - [facility] PCP 02/26/2405/27 Terese Braxton MD [address] [place] [address] PCP - RESEARCH NURSE Medicaid PCP 07/28/24 Terese Braxton MD [address]17 [facility] [address] [place] [address] PCP - [facility]ITH PCP 08/28/24 Terese Braxton MD [address]17 [facility] [address] [place] [address] PCP - [facility] Medicaid PCP 01/26/25 documented as of this encounter
--- OUTSIDE RECORDS SUMMARY | 2025-04-05 10:17 | XMS_ITS | Clinical Summary ---
Author Organization [employer] s tem Address [id number] [address] [place] [address] Care Team Providers Care Manager Personnel Selection Name Role Phone Lobito Spencer DO Primary Care Provider Allergies Active Allergy Reactions Criticality Noted Date Comments Adhesive Tape-Silicones Rash Low 11/20/2023 Aspirin Other (See Comments) High 07/31/2023 Gastric bypass - Lifelong avoidance of all NSAIDs advised to reduce risk of anastomotic ulcer formation. 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 Other Other (See Comments) Medium 11/06/2023 Rash from silk tape/bandaids Tramadol Hives Medium 02/07/2023 Sertraline Other (See Comments) 11/20/2023 Mood swings Medications albuterol (PROVENTIL,VENTOLIN) 2.5 mg /3 mL (0.083 %) nebulizer solution INHALE 3 (THREE) mL (1 (ONE) vial) VIA NEBULIZER NEEDED FOR WHEEZING EVERY 4 HOURS 01/19/20 23 Active VENTOLIN HFA 90 mcg/actuation inhaler INHALE 2 PUFFS BY MOUTH NEEDED FOR WHEEZING EVERY 4 HOURS 01/19/20 23 Active diclofenac sodium (VOLTAREN) 1 % gel 01/19/20 Active hydroCHLOROthiazide (HYDRODIURIL) 50 mg tablet Take 1 tablet (50 mg total) by mouth daily. As needed 01/19/20 Active lisinopriL (PRINIVIL,ZESTRIL) 40 mg tablet Take 10 mg by mouth in the morning. 01/22/20 Active montelukast (SINGULAIR) 10 mg tablet Take 1 tablet (10 mg total) by mouth nightly. 01/19/20 Active rosuvastatin (CRESTOR) 40 mg tablet Take 0.5 tablets (20 mg total) by mouth nightly. 01/19/20 Active fluticasone propionate (FLOVENT HFA) 220 mcg/actuation inhaler Inhale 1 puff in the morning and 1 puff before bedtime. Active acetaminophen (TYLENOL EXTRA STRENGTH) 500 mg tablet Take 2 tablets (1,000 mg total) by mouth in the morning and 2 tablets (1,000 mg total) before bedtime. Active omeprazole (PriLOSEC) 40 mg capsule Take 1 capsule (40 mg total) by mouth every morning before breakfast. 90 capsule 1 11/21/19 Active Additional Information Patient not taking.Reported on 11/19/2024 cholecalciferol, vitamin D3, 50,000 units tabletIndications:Vi tamin D deficiency Take 1 tablet (50,000 Units total) by mouth once a week. 12 tablet 11/26/19 Active ondansetron (ZOFRAN) 4 mg tabletIndications:Po st-operative nausea and vomiting Take 1 tablet (4 mg total) by mouth every 6 (six) hours as needed for nausea or vomiting (post op nausea). 30 tablet 1 11/26/19 Active Additional Information Patient not taking.Reported on 11/19/2024 PNV,calcium 08-hoxd-bzafv acid ( VITAMIN PLUS LOW IRON) 27 mg iron- 1 mg tabletIndications:Po stsurgical malabsorption,Malnut rition following gastrointestinal surgery,History of Angela-en-Y gastric bypass Take 1 tablet by mouth in the morning. 90 tablet 3 12/16/19 Active spironolactone (ALDACTONE) 25 mg tablet Take 1 tablet (25 mg total) by mouth in the morning. Active magnesium oxide (MAGOX) 400 mg tablet Take 1 tablet (400 mg total) by mouth. 11/09/19 25 Active VITAMIN PLUS LOW IRON 27 mg iron- 1 mg tabletIndications:Mo rbid obesity ([facility]),Pre-op testing TAKE 1 TABLET BY MOUTH IN THE MORNING 90 tablet 3 02/06/20 25 Active cyanocobalamin (VITAMIN B12) 1,000 mcg tablet, sublingualIndication s:Postsurgical malabsorption,Malnut rition following gastrointestinal surgery,History of Angela-en-Y gastric bypass Place 1 tablet (1,000 mcg total) under the tongue in the morning. 90 tablet 3 02/18/20 25 Active Active Problems Problem Noted Date Diagnosed Date Postsurgical malabsorption 11/26/2023 Malnutrition following gastrointestinal surgery 11/26/2023 History of Angela-en-Y gastric bypass 11/26/2023 Vitamin D deficiency 11/26/2023 Post-operative nausea and vomiting 11/26/2023 Morbid obesity with BMI of 50.0-59.9, adult 10/29 Primary hypertension 02/07/2023 Hyperlipidemia 02/07/2023 Encounters Date Type Department Care Team Description 02/17/2025 Refill [facility] [address] [place] [address] [address] [place] [address] Cathy Fitch CMA Postsurgical malabsorption; Malnutrition following gastrointestinal surgery; History of Angela-en-Y gastric bypass 02/03/2025 Refill [facility] [address] [place] [address] [address] [place] [address] [place] Kidd MD Morbid obesity ([facility]); Pre-op testing from Last 3 Months Immunizations Immunization Administration Dates Next Due Hepatitis B 12/23/2015 Influenza, Im Trivalent Preservative 12/23/2015, 06/25/1994 Tdap 12/23/2015,06/23/2014 Social History Tobacco Use Types Packs/Day Years Used Date Smoking Tobacco: Some Days Cigarettes Last attempted to quit: 2022 Smokeless Tobacco: Never Tobacco Cessation:Ready to Q uit: Not Asked; Counseling Given: Not Answered Alcohol Use Standard Drinks/Week Comments Not Currently [...] on file Sexual Orientation Not on file Last Filed Vital Signs Vital Sign Reading Time Taken Comments Blood Pressure 109/74 11/19/2024 1:00 PM EST Pulse 81 11/19/2024 1:00 PM EST Temperature 37 C (98.6 F) 11/21/2023 4:57 AM EST Respiratory Rate 16 04/16/2024 2:09 PM EDT Oxygen Saturation 96% 11/26/2023 8:47 AM EST Inhaled Oxygen Concentration - - Weight 86.6 kg (190 lb 14.4 oz) 11/19/2024 1:00 PM EST Height 157.5 cm (5' 2.01 ) 11/19/2024 1:00 PM ES T Body Mass Index 34.91 11/19/2024 1:00 PM EST Plan of Treatment Upcoming Encounters Date Type Department Care Team (Late st Contact Info) Description 11/18/2025 1:00 PM EST Office Visit [facility] [address] [facility] [place] [address] [place] Kidd MD [address] [facility] [address] [place] [address] Yoli Kohler, PA-C [address] [facility] [address] [place] [address] Health Maintenance Due Date Last Done Comments Tobacco Counseling 1967 Zoster (Shingles) Vaccine (1 of 2) 2017 Depression Screening 11/20/2024 11/20/2023 Adult BMI Follow Up Plan 11/26/2024 11/26/2023 Influenza Vaccine 06/28/2025 12/23/2015, 06/25/1994 Adult BMI Screening 11/19/2025 11/19/2024 Tobacco Screening 11/19/2025 11/19/2024 DTaP,Tdap and Td Vaccines (3 - Td or Tdap) 12/23/2025 12/23/2015, 06/23/2014 Medical Devices Not on file Insurance [address] [place], [place] [id number] [employer] MEDICA[employer] Advance Directives * Full Code (Latest Code Status on File) Date Activated Date Inactivated Comments 11/20/2023 10:49 AM 11/21/2023 1:27 PM Care Teams Manager Personnel Selection Relationship Specialty Start Date End Date Lobito Spencer DO PCP - General Family Medicine 03/13/23
--- OUTSIDE RECORDS SUMMARY | 2025-04-05 10:17 | XMS_ITS | Encounter Summary ---
Author Organization [facility] Sys tem Address [facility] [id number] [address] [place] [address] Care Team Providers Care Psych Therapist Name Role Phone Lobito Spencer DO Primary Care Provider [phone] Encounter Details Date Type Department Care Team (Late st Contact Info) Description 02/13/2024 Orders Only [facility] [address] [facility] [address] [place] [address] Ludivina Yeung CMA Postsurgical malabsorption; Malnutrition following gastrointestinal surgery; History of Angela-en-Y gastric bypass Social History Tobacco Use Types Packs/Day Years [...] Office Visit [facility] [address] 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 documented in this encounter Results * Thiamin Vitamin B1, whole blood (02/05/2024) Thiamine 126.0 MANUALLY TRANSCRIBED RESULTS 02/05/2024 us Yoli Kohler PA-C LAB BLOOD ORDERABLES nal Result MANUALLY TRANSCRIBED RESULTS documented in this encounter Visit Diagnoses Diagnosis 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 Other and unspecified postsurgical nonabsorption History of Angela-en-Y gastric bypass documented in this encounter Additional Health Concerns Assessment Noted Time PHQ-9 Depression Total Score: 6 11/20/19 24 2:07 PM EST documented as of this encounter Care Teams Psych Therapist Relationship Specialty Start Date End Date Lobito Spencer DO PCP - General Family Medicine 03/13/23 documented as of this encounter
--- OUTSIDE RECORDS SUMMARY | 2025-04-05 10:17 | XMS_ITS | Encounter Summary ---
Author Organization [facility] Address [address] [address] Phone Care Team Providers Care Litigation Attorney Name Role Phone FacundoLobito avery Primary Care Provider [phone] Terese Braxton MD Unavailable Terese Braxton MD Unavailable Encounter Details Date Type Department Care Team (Late st Contact Info) Description 03/31/2025 Patient Risk Score [facility] Care Management [address] [facility] [address] [place] [address] Social History Tobacco Use Types [...] Description 02/04/2026 2:30 PM EDT Office Visit [address] [place] [address] Terese Braxton MD [address] [address] documented as of this encounter Visit Diagnoses Not on filedocumented in this encounter Additional Health Concerns Assessment Noted Time A fall risk assessment has been complete d for the patient 08/01/2023 11:01 AM EDT documented as of this encounter Care Teams Litigation Attorney Relationship Specialty Start Date End Date Lobito Spencer DO PCP - General Family Medicine 02/10/24 Terese Braxton MD [address] [address] PCP - [facility] MCGRATH[facility] PCP 08/28/24 Terese Braxton MD [address] [address] PCP - [facility] Medicaid PCP 01/26/25 documented as of this encounter
--- OUTSIDE RECORDS SUMMARY | 2025-04-05 10:17 | XMS_ITS | Encounter Summary ---
Author Organization [facility] Address [address] [place] [address] Phone Care Team Providers Care Real Time Analyst Name Role Phone Lobito Spencer DO Primary Care Provider [phone] Lobito Spencer DO Primary Care Provider [phone] Terese Braxton MD Unavailable Terese Braxton MD Unavailable Terese Braxton MD Unavailable Terese Braxton MD Unavailable Encounter Details Date Type Department Care Team (Late st Contact Info) Description 02/05/2024 Scanned Document [facility] [address] [place] [phone] Scanning, Generic Provider Social History Tobacco Use Types Packs/Day Years Used Date Smoking Tobacco: Every Day Cigarettes Smokeless Tobacco: Former Comments:vape Alcohol Use Standard Drinks/Week Comments Yes 0 [...] Description 02/04/2026 2:30 PM EDT Office Visit [place] [address] [facility] [address] [place] [address] Terese Braxton MD [address] [facility] [address] [place] [address] documented as of this encounter Visit Diagnoses Not on filedocumented in this encounter Additional Health Concerns Assessment Noted Time A fall risk assessment has been complete d for the patient 08/01/2023 11:01 AM EDT documented as of this encounter Care Teams Real Time Analyst Relationship Specialty Start Date End Date Lobito Spencer DO PCP - General 11/22/22 02/09/24 Lobito Spencer DO PCP - General Family Medicine 02/10/24 Terese Braxton MD [address] [place] [address] PCP - [employer] [facility] PCP 02/26/2405/27 Terese Braxton MD [address] [place] [address] [address] [place] [address] PCP - DISTRIBUTION SYSTEM OPERATOR Medicaid PCP 07/28/24 Terese Braxton MD [address] [place] [address] PCP - [facility] PCP 08/28/24 Terese Braxton MD [address] [facility] [address] [place] [address] PCP - DISTRIBUTION SYSTEM OPERATOR Medicaid PCP 01/26/25 documented as of this encounter
--- OUTSIDE RECORDS SUMMARY | 2025-04-05 10:17 | XMS_ITS | Encounter Summary ---
Author Organization [facility] Address [address] [place] [address] Phone Care Team Providers Care Vehicle Controls Engineer Name Role Phone FacundoLobito avery Primary Care Provider [phone] Terese Braxton MD Unavailable Terese Braxton MD Unavailable Encounter Details Date Type Department Care Team (Late st Contact Info) Description 10/31/2024 Patient Risk Score [facility] Care Management [address] [facility] [address] [place] [address] Social History Tobacco Use Types [...] Description 02/04/2026 2:30 PM EDT Office Visit [address] [place] [address] Terese Braxton MD [address] [address] documented as of this encounter Visit Diagnoses Not on filedocumented in this encounter Additional Health Concerns Assessment Noted Time A fall risk assessment has been complete d for the patient 08/01/2023 11:01 AM EDT documented as of this encounter Care Teams Vehicle Controls Engineer Relationship Specialty Start Date End Date Lobito Spencer DO PCP - General Family Medicine 02/10/24 Terese Braxton MD [address] [address] PCP - [facility] PCP 08/28/24 Terese Braxton MD [address] [address] PCP - [facility] Medicaid PCP 01/26/25 documented as of this encounter
--- OUTSIDE RECORDS SUMMARY | 2025-04-05 10:17 | XMS_ITS | Encounter Summary ---
Author Organization [facility] Address [address] [place] [address] Phone Care Team Providers Care Service Observer Chief Name Role Phone FacundoLobito avery Codi VELÁQSUEZ Primary Care Provider [phone] Terese Braxton MD Unavailable Terese Braxton MD Unavailable Terese Braxton MD Unavailable Encounter Details Date Type Department Care Team (Late st Contact Info) Description 06/30/2024 Patient Risk Score [facility] Care Management [address] [place] [address] Social History Tobacco Use Types [...] Description 02/04/2026 2:30 PM EDT Office Visit [place] [address] [facility] [address] [place] [address] Terese Braxton MD [address] [place] [address] documented as of this encounter Visit Diagnoses Not on filedocumented in this encounter Additional Health Concerns Assessment Noted Time A fall risk assessment has been complete d for the patient 08/01/2023 11:01 AM EDT documented as of this encounter Care Teams Service Observer Chief Relationship Specialty Start Date End Date Lobito Spencer DO PCP - General Family Medicine 02/10/24 Terese Braxton MD [address] [place] [address] PCP - PATTERN MAKER PROGRAMER Medicaid PCP 07/28/24 Terese Braxton MD [address] [place] [address] PCP - [facility] PCP 08/28/24 Terese Braxton MD [address] [place] [address] PCP - PATTERN MAKER PROGRAMER Medicaid PCP 01/26/25 documented as of this encounter
--- OUTSIDE RECORDS SUMMARY | 2025-04-05 10:17 | XMS_ITS | Encounter Summary ---
Author Organization [facility] Sys tem Address [facility] [id number] [address] [place] [address] Care Team Providers Care Director Craft Center Name Role Phone Lobito Spencer DO Primary Care Provider [phone] Encounter Details Date Type Department Care Team (Late st Contact Info) Description 11/18/2024 Orders Only [facility] [address] [facility] [address] [place] [address] Peggy Thurman, COAL EQUIPMENT OPERATOR-STATE MANAGER [address] [place] [address] Social History Tobacco Use Types Packs/Day Years Used Date Smoking Tobacco: Some Days Cigarettes Last attempted to quit: 2022 Smokeless Tobacco: Never Alcohol Use Standard [...] Office Visit [facility] [address] [facility] [place] [address] [place] Kidd MD [address] [facility] [address] [place] [address] Yoli Kohler PADaisyC [address] [facility] [address] [place] [address] documented as of this encounter Procedures Procedure Name Priority Date/Time Associated Diagnosis Comments MULTIPLE LABS Routine 11/10/2024 9:36 AM EST MULTIPLE LABS Routine 11/10/2024 9:33 AM EST documented in this encounter Results * Multiple labs (11/10/2024 9:36 AM EST) Peggy Thurman COAL EQUIPMENT OPERATOR-STATE MANAGER ID IMAGING Final R esult Performing Organization Address City/[facility] de Phone Number MANUALLY TRANSCRIBED RESULTS * Multiple labs (11/10/2024 9:33 AM EST) Peggy Thurman COAL EQUIPMENT OPERATOR-STATE MANAGER ID IMAGING Final R esult Performing Organization Address [facility] de Phone Number MANUALLY TRANSCRIBED RESULTS documented in this encounter Visit Diagnoses Not on filedocumented in this encounter Additional Health Concerns Assessment Noted Time PHQ-9 Depression Total Score: 6 11/20/19 24 2:07 PM EST documented as of this encounter Care Teams Director Craft Center Relationship Specialty Start Date End Date Lobito Spencer DO PCP - General Family Medicine 03/13/23 documented as of this encounter
--- OUTSIDE RECORDS SUMMARY | 2025-04-05 10:17 | XMS_ITS | Encounter Summary ---
Author Organization [facility] Sys tem Address [facility]-[id number] [address] [place] [address] Care Team Providers Care Maintenance Journeyman Name Role Phone Lobito Spencer DO Primary Care Provider Encounter Details Date Type Department Care Team (Late st Contact Info) Description 02/10/2024 Orders Only [facility] [address] [facility] [address] [place] [address] Ludivina Yeung CMA Postsurgical malabsorption; Malnutrition following [...] Office Visit [facility] [address] 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 FOLATE Routine 02/05/2024 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 VITAMIN B12 Routine 02/05/2024 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 documented in this encounter Results * Multiple labs (02/10/2024 10:58 AM EDT) us Yoli Kohler PA-C HI IMAGING Final R esult MANUALLY TRANSCRIBED RESULTS * Iron (02/05/2024) Iron 68 [facility] 02/05/2024 Yoli Doughertya PA-C LAB BLOOD ORDERABLES Fi nal Result SUNQUEST * Folate (02/05/2024) Folate 22.50 [facility]QUEST 02/05/2024 us Yoli Choudharynga PA-C LAB BLOOD ORDERABLES Fi nal Result SUNQUEST * Vitamin D 25 hydroxy (02/05/2024) External Vitamin D 25-Hydroxy 45.5 [facility]QUEST 02/05/2024 Yoli Doughertya PA-C LAB BLOOD ORDERABLES Fi nal Result SUNQUEST * Vitamin B12 (02/05/2024) Vitamin B-12 668 SUNQUEST 02/05/2024 Yoli Doughertya PA-C LAB BLOOD ORDERABLES Fi nal Result SUNQUEST documented in this encounter Visit Diagnoses Diagnosis 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 Other and unspecified postsurgical nonabsorption History of Angela-en-Y gastric bypass documented in this encounter Additional Health Concerns Assessment Noted Time PHQ-9 Depression Total Score: 6 11/20/19 24 2:07 PM EST documented as of this encounter Care Teams Maintenance Journeyman Relationship Specialty Start Date End Date Lobito Spencer DO PCP - General Family Medicine 03/13/23 documented as of this encounter
--- OUTSIDE RECORDS SUMMARY | 2025-04-05 10:17 | XMS_ITS | Encounter Summary ---
Author Organization [facility] Address [address] [place] [address] Phone Care Team Providers Care Plant Accountant Name Role Phone SanyarLobito Codi DO Primary Care Provider [phone] Lobito Spencer DO Primary Care Provider [phone] Terese Braxton MD Unavailable Terese Braxton MD Unavailable Terese Braxton MD Unavailable Terese Braxton MD Unavailable Terese Braxton MD Unavailable Encounter Details Date Type Department Care Team (Late st Contact Info) Description 07/11/2023 Orders Only [facility] [address] [place] [address] Conversion, Onbase Social History Tobacco Use Types [...] Description 02/04/2026 2:30 PM EDT Office Visit [address] [address] Terese Braxton MD [address] [address] Scheduled Orders Name Type Priority Associated Diagnoses Orde r Schedule OUTSIDE LAB SCAN Lab Ordered: 07/11/2023 documented as of this encounter Visit Diagnoses Not on filedocumented in this encounter Care Teams Plant Accountant Relationship Specialty Start Date End Date Lobito Spencer DO PCP - General 11/22/22 02/09/24 Lobito Spencer DO PCP - General Family Medicine 02/10/24 Terese Braxton MD [address] [place] [address] [facility] P[facility] 10/28/2311/27 eTrese Braxton MD [address] [place] [address] PCP - [employer] [facility] PCP 02/26/2405/27 Terese Braxton MD [address] [place] [address] PCP - [facility] Medicaid PCP 07/28/24 Terese Braxton MD [address] [place] [address] PCP - [employer] [facility] PCP 08/28/24 Terese Braxton MD [address] [place] [address] PCP - MEDICAL ECONOMICS CONSULTANT Medicaid PCP 01/26/25 documented as of this encounter
--- OUTSIDE RECORDS SUMMARY | 2025-04-05 10:17 | XMS_ITS | Encounter Summary ---
Author Organization [facility] Address [address] [address] Phone Care Team Providers Care Dermatology Physician Assistant Name Role Phone FacundoLobito avery Primary Care Provider [phone] Terese Braxton MD Unavailable Terese Braxton MD Unavailable Encounter Details Date Type Department Care Team (Late st Contact Info) Description 01/29/2025 Patient Risk Score [facility] [place] [address] [facility] [address] [place] [address] Social History Tobacco Use Types [...] Description 02/04/2026 2:30 PM EDT Office Visit [address] [place] [address] Terese Braxton MD [address] [address] documented as of this encounter Visit Diagnoses Not on filedocumented in this encounter Additional Health Concerns Assessment Noted Time A fall risk assessment has been complete d for the patient 08/01/2023 11:01 AM EDT documented as of this encounter Care Teams Dermatology Physician Assistant Relationship Specialty Start Date End Date Lobito Spencer DO PCP - General Family Medicine 02/10/24 Terese Braxton MD [address] [address] PCP - [facility] MCGRATHO PCP 08/28/24 Terese Braxton MD [address] [address] PCP - [facility] Medicaid PCP 01/26/25 documented as of this encounter
--- OUTSIDE RECORDS SUMMARY | 2025-04-05 10:17 | XMS_ITS | Encounter Summary ---
Author Organization [facility] Address [address] [address] Phone Care Team Providers Care Building Maintenance Mechanic Name Role Phone Lobito Spencer DO Primary Care Provider [phone] Lobito Spencer DO Primary Care Provider [phone] Terese Braxton MD Unavailable Terese Braxton MD Unavailable Terese Braxton MD Unavailable Terese Braxton MD Unavailable Terese Braxton MD Unavailable Encounter Details Date Type Department Care Team (Late st Contact Info) Description 06/30/2023 Patient Risk Score [facility] [place] Care Management [address] [place] [address] Social History Tobacco Use Types [...] Description 02/04/2026 2:30 PM EDT Office Visit [place] [address] [place] [address] Terese Braxton MD [address] [place] [address] documented as of this encounter Visit Diagnoses Not on filedocumented in this encounter Care Teams Building Maintenance Mechanic Relationship Specialty Start Date End Date Lobito Spencer DO PCP - General 11/22/22 02/09/24 Lobito Spencer DO PCP - General Family Medicine 02/10/24 Terese Braxton MD [address] [place] [address] PCP - [facility] PCP 10/28/2311/27 Terese Braxton MD [address] [place] [address] PCP - [facility] PCP 02/26/2405/27 Terese Braxton MD [address] [place] [address] PCP - SOLDERING MACHINE TENDER Medicaid PCP 07/28/24 Terese Braxton MD [address] [place] [address] PCP - [facility] PCP 08/28/24 Terese Braxton MD [address] [place] [address] PCP - SOLDERING MACHINE TENDER Medicaid PCP 01/26/25 documented as of this encounter
--- OUTSIDE RECORDS SUMMARY | 2025-04-05 10:17 | XMS_ITS | Encounter Summary ---
Author Organization Ahonya s tem Address [id number] [address] [place] [address] Care Team Providers Care Environmental Conservation Officer Name Role Phone JohannaLobito Primary Care Provider [phone] Encounter Details Date Type Department Care Team (Late Contact Info) Description 09/13/2023 External Surgery [facility] [address] [place] [phone] Dixie Roberts CMA Social History Tobacco Use [...] Office Visit [facility] [address] [facility] [address] [place] [address] Campbell Kidd MD [address] [facility] [address] [place] [address] Yoli Kohler, PA-C [address] [facility] [address] [place] [address] documented as of this encounter Visit Diagnoses Not on filedocumented in this encounter Care Teams Environmental Conservation Officer Relationship Specialty Start Date End Date Lobito Spencer DO PCP - General Family Medicine 03/13/23 documented as of this encounter
--- OUTSIDE RECORDS SUMMARY | 2025-04-05 10:17 | XMS_ITS | Encounter Summary ---
Author Organization [facility] Address [id number] [address] [place] [address] Care Team Providers Care Wood Handler Name Role Phone Lobito Spencer DO Primary Care Provider [phone] Encounter Details Date Type Department Care Team (Late st Contact Info) Description 04/10/2024 Orders Only [facility] [address] [facility] [address] [place] [phone] Peggy Thurman, ETCHER PRINTED CIRCUIT BOARDS-TRIAGE REGISTER NURSE [address] [place] [address] Social History Tobacco Use Types [...] Office Visit [facility] [address] [facility] [place] [phone] Campbell Kidd MD [address] [facility] [address] [place] [address] Yoli Kohler PA-C [address] [facility] [address] [place] [address] documented as of this encounter Procedures Procedure Name Priority Date/Time Associated Diagnosis Comments MULTIPLE LABS Routine 04/07/2024 10:54 AM EDT documented in this encounter Results * Multiple labs (04/07/2024 10:54 AM EDT) us Peggy Thurman ETCHER PRINTED CIRCUIT BOARDS-TRIAGE REGISTER NURSE DC IMAGING Final R esult MANUALLY TRANSCRIBED RESULTS documented in this encounter Visit Diagnoses Not on filedocumented in this encounter Additional Health Concerns Assessment Noted Time PHQ-9 Depression Total Score: 6 11/20/19 24 2:07 PM EST documented as of this encounter Care Teams Wood Handler Relationship Specialty Start Date End Date Lobito Spencer DO PCP - General Family Medicine 03/13/23 documented as of this encounter
--- OUTSIDE RECORDS SUMMARY | 2025-04-05 10:17 | XMS_ITS | Encounter Summary ---
Author Organization [facility] Address [address] [place] [address] Phone Care Team Providers Care Mail Carrier Technician Name Role Phone FacundoLobito avery Codi VELÁSQUEZ Primary Care Provider [phone] Terese Braxton MD Unavailable Terese Braxton MD Unavailable Terese Braxton MD Unavailable Encounter Details Date Type Department Care Team (Late st Contact Info) Description 07/31/2024 Patient Risk Score [facility] [place] [place] Care Management [address] [place] [address] Social History Tobacco Use Types [...] Description 02/04/2026 2:30 PM EDT Office Visit [place] [address] [place] [address] Terese Braxton MD [address] [place] [address] documented as of this encounter Visit Diagnoses Not on filedocumented in this encounter Additional Health Concerns Assessment Noted Time A fall risk assessment has been complete d for the patient 08/01/2023 11:01 AM EDT documented as of this encounter Care Teams Mail Carrier Technician Relationship Specialty Start Date End Date Lobito Spencer DO PCP - General Family Medicine 02/10/24 Terese Braxton MD [address] [place] [address] PCP - SENIOR DATA INTEGRATION DEVELOPER Medicaid PCP 07/28/24 Terese Braxton MD [address] [place] [address] PCP - [facility] PCP 08/28/24 Terese Braxton MD [address] [place] [address] PCP - SENIOR DATA INTEGRATION DEVELOPER Medicaid PCP 01/26/25 documented as of this encounter
--- OUTSIDE RECORDS SUMMARY | 2025-04-05 10:17 | XMS_ITS | Clinical Summary ---
Author Organization [facility] Address [address] [place] [address] Care Team Providers Care Real Estate Attorney Name Role Phone Unavailable Primary Care Provider Unavailabl e Social History Tobacco Use Types Packs/Day Years Used Date Smoking Tobacco: Never Assessed Comments Unknown Sex and Gender Information Value Date Recorded Sex Assigned at Not on file Legal Sex Female 6:55 PM EDT Gender Identity Not on file Sexual Orientation Not on file Last Filed Vital Signs Vital Sign Reading Time Taken Comments Blood Pressure - - Pulse - - Temperature - - Respiratory Rate - - Oxygen Saturation - - Inhaled Oxygen Concentration - - Weight 132 kg (291 lb) 02/17/2021 12:00 PM EDT Height 158.8 cm (5' 2.5 ) 02/17/2021 12:00 PM ED T Body Mass Index 52.38 02/17/2021 12:00 PM EDT Plan of Treatment Not on file Insurance [employer]
--- OUTSIDE RECORDS SUMMARY | 2025-04-05 10:17 | XMS_ITS | Clinical Summary ---
Author Organization [facility] Address [address] [address] Phone Care Team Providers Care Catalyst Recovery Operator Name Role Phone Johanna Lobitokaylin Kincaid DO Primary Care Provider [phone] Terese Braxton MD Unavailable Terese Braxton MD Unavailable Allergies Active Allergy Reactions Criticality Noted Date Comments Aspirin Unknown High 07/31/2023 Bee Venom Protein (Honey Bee) Swelling High 2022 Cefuroxime Axetil Rash Low 07/31/2023 Gabapentin Drowsiness Medium 07/31/2023 Latex Rash Medium 07/31/2023 Nsaids (Non-Steroidal Anti-I nflammatory Drug) Unknown High 07/31/2023 Tramadol Hives Medium 07/31/2023 Sertraline Confusion High 07/31/2023 Medications acetaminophen (Tylenol) 500 mg tablet Take 1 tablet (500 mg) by mouth. Every 4-6 hours as needed Active omeprazole (PriLOSEC) [address] capsule Take 1 capsule (40 mg) by mouth 2 times a day. Do not crush or chew. Active montelukast (Singulair) 10 mg tablet Take 1 tablet (10 mg) by mouth once daily. Active albuterol 90 mcg/actuation inhaler Inhale 1-2 puffs. 4-6 hours as needed Active [id number] fumarate-FA () 28-800 mg-mcg tablet 03/28/2023 Active cholecalciferol (Vitamin D-3) 50,000 unit capsule Take 1 capsule (50,000 Units) by mouth 1 (one) time per week. 01/14/2024 Active calcium citrate-vitamin D3 (Citracal+D) 315 mg-5 mcg (200 unit) tablet Take 1 tablet by mouth 1 (one) time per week. Active lisinopril 20 mg tabletIndicatio ns:Hypertensive heart disease without CHF Take 1 tablet (20 mg) by mouth once daily. 90 tablet 3 02/11/2025 6 Active magnesium oxide (Mag-Ox) 400 mg tabletIndicatio ns:Hypertensive heart disease without CHF Take 1 tablet (400 mg) by mouth once daily. 90 tablet 3 02/11/2025 6 Active rosuvastatin (Crestor) 40 mg tabletIndicatio ns:Hyperlipemia , mixed Take 0.5 tablets (20 mg) by mouth once daily. 45 tablet 3 02/11/2025 6 Active spironolactone (Aldactone) 25 mg tabletIndicatio ns:Hypertensive heart disease without CHF Take 1 tablet (25 mg) by mouth once daily. 90 tablet 3 02/11/2025 6 Active hydroCHLOROthia zide (HYDRODiuril) 50 mg tabletIndicatio ns:Hypertensive heart disease without CHF Take 1 tablet (50 mg) by mouth once daily as needed (one tablet daily as needed for swelling). 30 tablet 1 02/12/2025 Active Active Problems Problem Noted Date Diagnosed Date PVD (peripheral vascular disease) 02/11/2025 RBBB 02/11/2025 Body mass index (BMI) of 36.0 to 36.9 in adult 1 Hypokalemia 02/10/2024 Medication course changed 02/10/2024 S/P gastric bypass 02/10/2024 Encounter to discuss test results 08/01/2023 Pre-diabetes 08/01/2023 PVC (premature ventricular contraction) 08/01/20 Abnormal ECG 07/31/2023 Clotting disorder (Multi) 07/31/2023 Disturbance, sleep 07/31/2023 Fatigue 07/31/2023 Hypertensive heart disease without CHF Hyperlipemia, mixed 07/31/2023 SOB (shortness of breath) 07/31/2023 Palpitations 07/31/2023 Current every day smoker 07/31/2023 Resolved Problems Problem Noted Date Diagnosed Date Resolved Date BMI 45.0-49.9, adult (Multi) 07/31/2023 08/24/2024 Encounters Date Type Department Care Team Description 03/31/2025 Patient Risk Score [facility] Care Management [address] [facility] [address] [place] [address] 02/28/2025 [facility] [address] [facility] [address] [place] [address] 02/11/2025 2:30 PM EDT Office Visit [address] [address] Terese Braxton MD Hypertensive heart disease without CHF; SOB (shortness of breath); Fatigue, unspecified type; Hyperlipemia, mixed; S/P gastric bypass; Clotting disorder (Multi); Pre-diabetes; Current every day smoker; Body mass index (BMI) of 36.0 to 36.9 in adult 02/11/[address] [address] Terese Braxton MD Hypertensive heart disease without CHF 02/11/2025 Travel 02/04/2025 Scanned Document [facility] [address] [place] [address] Scanning, Generic Provider 01/29/2025 Patient Risk [place] [facility] [place] [address] [facility] [address] [place] [address] from Last 3 Months Immunizations Immunization Administration Dates Next Due Hepatitis B vaccine, adult *Check Product/Dose* 12/23/2015 Influenza, seasonal, injectable 12/23/2015,06/25 Tdap vaccine, age 7 year and older (BOOSTRIX, AD ACEL) 12/23/2015,06/23/2014 Family History Medical History Relation Name Comments htn Brother Atrial fibrillation Father Diabetes Father cva Father htn Father htn Mother Relation Name Status Comments Brother Father Mother Social History Tobacco Use Types Packs/Day Years Used Date Smoking Tobacco: Every Day Cigarettes Smokeless Tobacco: Former Tobacco Cessation:Ready to Q uit: No; Counseling Given: Yes Comments:vape Alcohol Use Standard Drinks/Week Comments Not [...] Orientation Straight 02/10/2024 11 :59 AM EDT Last Filed Vital Signs Vital Sign Reading Time Taken Comments Blood Pressure 126/78 02/11/2025 2:26 PM EDT Pulse 78 02/11/2025 2:26 PM EDT Temperature - - Respiratory Rate - - Oxygen Saturation - - Inhaled Oxygen Concentration - - Weight 89.7 kg (197 lb 12.8 oz) 02/11/2025 2:26 PM EDT Height 157.5 cm (5' 2 ) 02/11/2025 2:26 PM EDT Body Mass Index 36.18 02/11/2025 2:26 PM EDT Plan of Treatment Upcoming Encounters Date Type Department Care Team (Late st Contact Info) Description 02/04/2026 2:30 PM EDT Office Visit [address] [place] [address] Terese Braxton MD 917 [facility] 130 [place] [address] Health Maintenance Due Date Last Done Comments CT Colonography 1967 Colonoscopy 1967 Colorectal Cancer Screening 1967 FIT-DNA (Cologuard) 1967 FIT 1967 HIV Screening 1967 Lipid Panel 1967 Sigmoidoscopy 1967 Yearly Adult Physical 1967 MMR Vaccines (1 of 1 - Standard series) 1968 Diabetes Screening 1985 Hepatitis C Screening 1985 Pneumococcal Vaccine (1 of 2 - PCV) 1986 Cervical Cancer Screening 1988 HPV/Cotest 1988 Pap Smear 1988 Mammogram 2007 Hepatitis B Vaccines (2 of 3 - 19+ 3-dose series) 01/20/2016 12/23/2015 Zoster Vaccines (1 of 2) 2017 COVID-19 Vaccine (1 - 2023-2 5 season) 2024 Influenza Vaccine (Season Ended) 2025 12/23/2015, 06/25/1994 DTaP/Tdap/Td Vaccines (3 - T d or Tdap) 12/23/2025 12/23/2015, 06/23/2014 HIB Vaccines Aged Out No longer eligi ble based on patient's age to complete this topic HPV Vaccines Aged Out No longer eligi ble based on patient's age to complete this topic Hepatitis A Vaccines Aged Out No long er eligible based on patient's age to complete this topic IPV Vaccines Aged Out No longer eligi ble based on patient's age to complete this topic Meningococcal Vaccine Aged Out No wilmar carlos eligible based on patient's age to complete this topic Rotavirus Vaccines Aged Out No longer eligible based on patient's age to complete this topic Procedures Procedure Name Priority Date/Time Associated Diagnosis Comments OUTSIDE LAB SCAN 02/04/2025 OUTSIDE LAB SCAN 02/04/2025 from Last 3 Months Results * OUTSIDE LAB SCAN (02/04/2025) Only the most recent of2 resultswithin the time period is included. Narrative 02/04/2025 Ordered by an unspecified provider. Generic Provider Scanning OUTSIDE SCAN Final Result from Last [address] [place], [place] [id number] [place] [address] Care Teams Catalyst Recovery Operator Relationship Specialty Start Date End Date Lobito Spencer DO PCP - General Family Medicine 02/10/24 Terese Braxton MD [address] [place] [address] PCP - [facility]as MCGRATHO PCP 08/28/24 Terese Braxton MD [address] [place] [address] PCP - [facility] Medicaid PCP 01/26/25
--- OUTSIDE RECORDS SUMMARY | 2025-04-05 10:17 | XMS_ITS | Encounter Summary ---
Author Organization [employer]ized [employer] tem Address [facility] [id number] [address] [place] [address] Care Team Providers Care Labor Relations Director Name Role Phone JoahnnaLobito Primary Care Provider [phone] Encounter Details Date Type Department Care Team (Late Contact Info) Description 09/13/2023 External Surgery [facility] [address] [place] [phone] Dixie Roberts CMA Social History Tobacco Use [...] Office Visit [facility] [address] [facility] 101 [place] [address] Campbell Kidd MD [address] [facility] [address] [place] [address] Yoli Kohler, PA-C [address] [facility] [address] [place] [address] documented as of this encounter Visit Diagnoses Not on filedocumented in this encounter Care Teams Labor Relations Director Relationship Specialty Start Date End Date Lobito Spencer DO PCP - General Family Medicine 03/13/23 documented as of this encounter
--- OUTSIDE RECORDS SUMMARY | 2025-04-05 10:17 | XMS_ITS | Encounter Summary ---
Author Organization [facility] Address [address] [place] [address] Phone Care Team Providers Care Parts Counter Representative Name Role Phone Lobito Spencer DO Primary Care Provider [phone] Terese Braxton MD Unavailable Terese Braxton MD Unavailable Terese Braxton MD Unavailable Terese Braxton MD Unavailable Encounter Details Date Type Department Care Team (Late st Contact Info) Description 04/07/2024 Scanned Document [facility] [address] [place] [phone] Scanning, Generic Provider Social History Tobacco Use [...] Description 02/04/2026 2:30 PM EDT Office Visit [facility] [address] [address] Terese Braxton MD [address] [place] [address] [address] [place] [address] documented as of this encounter Visit Diagnoses Not on filedocumented in this encounter Additional Health Concerns Assessment Noted Time A fall risk assessment has been complete d for the patient 08/01/2023 11:01 AM EDT documented as of this encounter Care Teams Parts Counter Representative Relationship Specialty Start Date End Date Lobito Spencer DO PCP - General Family Medicine 02/10/24 Terese Braxton MD [address] [place] [address] PCP - [facility] PCP 02/26/2405/27 Terese Braxton MD [address] [place] [address] PCP - [employer] Medicaid PCP 07/28/24 Terese Braxton MD [address] [place] [address] PCP - [facility] PCP 08/28/24 Terese Braxton MD [address] [place] [address] PCP - [facility] [employer] Medicaid PCP 01/26/25 documented as of this encounter
--- OUTSIDE RECORDS SUMMARY | 2025-04-05 10:17 | XMS_ITS | Encounter Summary ---
Author Organization [facility] Address [address] [place] [address] Phone Care Team Providers Care Distance Education Coordinator Name Role Phone Johanna Lobitokaylin Kincaid DO Primary Care Provider [phone] Terese Braxton MD Unavailable Terese Braxton MD Unavailable Encounter Details Date Type Department Care Team (Late st Contact Info) Description 02/28/2025 Patient Risk Score [facility] [address] [place] [address] Social History Tobacco Use Types [...] Orientation Straight 02/10/2024 11 :59 AM EDT COVID-19 Exposure Response Date Recorded In the last 10 days, have yo u been in contact with someone who was confirmed or suspected to have Coronavirus/COVID-19? No / Unsure 02/11/2025 2:15 PM EDT documented as of this encounter Plan of Treatment Upcoming Encounters Date Type Department Care Team (Late st Contact Info) Description 02/04/2026 2:30 PM EDT Office Visit [facility] [address] [address] Terese Braxton MD [address] [place] [address] [address] [place], [place] [phone] documented as of this encounter Visit Diagnoses Not on filedocumented in this encounter Additional Health Concerns Assessment Noted Time A fall risk assessment has been complete d for the patient 08/01/2023 11:01 AM EDT documented as of this encounter Care Teams Distance Education Coordinator Relationship Specialty Start Date End Date Lobito Spencer DO PCP - General Family Medicine 02/10/24 Terese Braxton MD [address] [place] [address] PCP - [facility] PCP 08/28/24 Terese Braxton MD [address] [place] [address] PCP - [facility] Medicaid PCP 01/26/25 documented as of this encounter
--- OUTSIDE RECORDS SUMMARY | 2025-04-05 10:17 | XMS_ITS | Encounter Summary ---
Author Organization [facility] Address [address] [place] [address] Phone Care Team Providers Care Comptometrist Name Role Phone FacundoLobito avery Primary Care Provider [phone] Terese Braxton MD Unavailable Terese Braxton MD Unavailable Encounter Details Date Type Department Care Team (Late st Contact Info) Description 12/29/2024 Patient Risk [place] [facility] [place] [facility] [place] [address] [facility] [address] [place] [address] Social History Tobacco Use Types [...] Description 02/04/2026 2:30 PM EDT Office Visit [address] [place] [address] Terese Braxton MD [address] [address] documented as of this encounter Visit Diagnoses Not on filedocumented in this encounter Additional Health Concerns Assessment Noted Time A fall risk assessment has been complete d for the patient 08/01/2023 11:01 AM EDT documented as of this encounter Care Teams Comptometrist Relationship Specialty Start Date End Date Lobito Spencer DO PCP - General Family Medicine 02/10/24 Terese Braxton MD [address] [phone] PCP - [facility] MCGRATHO PCP 08/28/24 Terese Braxton MD [address] [address] PCP - [facility] Medicaid PCP 01/26/25 documented as of this encounter
--- OUTSIDE RECORDS SUMMARY | 2025-04-05 10:17 | XMS_ITS | Encounter Summary ---
Author Organization [facility] Address [address] [place] [address] Phone Care Team Providers Care Grain Inspector Name Role Phone FacundoLobito avery Primary Care Provider [phone] Terese Braxton MD Unavailable Terese Braxton MD Unavailable Encounter Details Date Type Department Care Team (Late st Contact Info) Description 12/01/2024 Patient Risk Score [facility] [place] Care Management [address] [facility] [address] [place] [address] Social History Tobacco Use Types [...] Description 02/04/2026 2:30 PM EDT Office Visit [address] [place] [address] Terese Braxton MD [address] [address] documented as of this encounter Visit Diagnoses Not on filedocumented in this encounter Additional Health Concerns Assessment Noted Time A fall risk assessment has been complete d for the patient 08/01/2023 11:01 AM EDT documented as of this encounter Care Teams Grain Inspector Relationship Specialty Start Date End Date Lobito Spencer DO PCP - General Family Medicine 02/10/24 Terese Braxton MD [address] [address] PCP - [facility] MCGRATHO PCP 08/28/24 Terese Braxton MD [address] [address] PCP - [facility] Medicaid PCP 01/26/25 documented as of this encounter
--- OUTSIDE RECORDS SUMMARY | 2025-04-05 10:17 | XMS_ITS | Encounter Summary ---
Author Organization [facility] Address [address] [place] [address] Phone Care Team Providers Care Power Engineer Name Role Phone Lobito Spencer DO Primary Care Provider [phone] Lobito Spencer DO Primary Care Provider [phone] Terese Braxton MD Unavailable Terese Braxton MD Unavailable Terese Braxton MD Unavailable Terese Braxton MD Unavailable Terese Braxton MD Unavailable Encounter Details Date Type Department Care Team (Late st Contact Info) Description 04/29/2023 Patient Risk Score [facility] [place] [address] [place] [address] Social History Tobacco Use Types [...] Description 02/04/2026 2:30 PM EDT Office Visit [place] [address] [place] [address] Terese Braxton MD [address] [place] [address] documented as of this encounter Visit Diagnoses Not on filedocumented in this encounter Care Teams Power Engineer Relationship Specialty Start Date End Date Lobito Spencer DO PCP - General 11/22/22 02/09/24 Lobito Spencer DO PCP - General Family Medicine 02/10/24 Terese Braxton MD [address] [place] [address] PCP - [facility] PCP 10/28/2311/27 Terese Braxton MD [address] [place] [address] PCP - [facility] PCP 02/26/2405/27 Terese Braxton MD [address] [place] [address] PCP - QUANTITATIVE RESEARCH ANALYST Medicaid PCP 07/28/24 Terese Braxton MD [address] [place] [address] PCP - [facility] PCP 08/28/24 Terese Braxton MD [address] [place] [address] PCP - QUANTITATIVE RESEARCH ANALYST Medicaid PCP 01/26/25 documented as of this encounter
--- OUTSIDE RECORDS SUMMARY | 2025-04-05 10:17 | XMS_ITS | Encounter Summary ---
Author Organization [facility] Address [address] [address] Phone Care Team Providers Care Trailer Body Assembler Name Role Phone FacundoLobito avery Codi VELÁSQUEZ Primary Care Provider [phone] Terese Braxton MD Unavailable Terese Braxton MD Unavailable Terese Braxton MD Unavailable Encounter Details Date Type Department Care Team (Late st Contact Info) Description 09/30/2024 Patient Risk Score [facility] [place] [address] [place] [address] Social History Tobacco Use Types [...] Description 02/04/2026 2:30 PM EDT Office Visit [place] [address] [place] [address] Terese Braxton MD [address] [place] [address] documented as of this encounter Visit Diagnoses Not on filedocumented in this encounter Additional Health Concerns Assessment Noted Time A fall risk assessment has been complete d for the patient 08/01/2023 11:01 AM EDT documented as of this encounter Care Teams Trailer Body Assembler Relationship Specialty Start Date End Date Lobito Spencer DO PCP - General Family Medicine 02/10/24 Terese Braxton MD [address] [place] [phone] PCP - [facility] Medicaid PCP 07/28/24 Terese Braxton MD [address] [place] [address] PCP - [facility] PCP 08/28/24 Terese Braxton MD [address] [place] [phone] PCP - [facility] Medicaid PCP 01/26/25 documented as of this encounter
[2025-04-05 11:16] LABS: Basophils Percent Auto 0.4 % (0.2-2.0); Eosinophils Absolute Auto 0.1 10^3/uL (0.0-0.7); Eosinophils Percent Auto 1.3 % (0.9-7.0); Hematocrit 40.9 % (36.0-48.0); Hemoglobin 13.3 g/dL (12.0-16.0); Lymphocytes Absolute Auto 1.9 10^3/uL (1.2-3.8); Lymphocytes Percent Auto 42.2 % (20.5-60.0); Mean Corpuscular HGB Conc 32.5 g/dL (29.9-35.2); Mean Corpuscular Volume 98.3 fL (81.0-99.0); Mean Platelet Volume 10.8 fL (9.5-13.5); Monocytes Absolute Auto 0.2 10^3/uL (0.3-0.8); Monocytes Percent Auto 5.1 % (1.7-12.0); Neutrophils Absolute Auto 2.3 10^3/uL (1.4-6.5); Platelet Count 141 10^3/uL (150-450); Red Blood Count 4.16 10^6/uL (4.20-5.40); Red Cell Distribution Width 13.8 % (11.0-15.0); White Blood Count 4.5 10^3/uL (4.0-11.0)
[2025-04-05 11:46] LABS: Alanine Aminotransferase 19 U/L (14-59); Albumin Level 3.3 g/dL (3.4-5.0); Alkaline Phosphatase 70 U/L (46-116); Anion Gap 12.7; Aspartate Amino Transferase 15 U/L (15-37); BUN Creatinine Ratio 22.2; Bilirubin Direct 0.1 mg/dL (0.0-0.2); Bilirubin Total 0.5 mg/dL (0.2-1.0); Calcium 9.3 mg/dL (8.5-10.1); Carbon Dioxide 28.3 mmol/L (21.0-32.0); Chloride 108 mmol/L (98-107); Estimated GFR (African America >60 (>=60 mL/min/1.73m^2); Estimated GFR (Non-African Ame >60 (>=60 mL/min/1.73m^2); Globulin 3.3 g/dL; Glucose 93 mg/dL (74-106); Sodium 145 mmol/L (136-145); Thyroid Stimulating Hormone 1.456 uIU/mL (0.358-3.740); Total Protein 6.6 g/dL (6.4-8.2)
[2025-04-05 13:06] LABS: Estimated Average Glucose 103 mg/dL; Glycohemoglobin A1C 5.2 % (4.5-6.2)
[2025-04-06 04:07] LABS: Testosterone 8 ng/dL (4-50)
[2025-04-06 06:08] LABS: Vitamin B12 1135 pg/mL (232-1245)
== END 2025-04-05 10:14 | disposition home or self-care (01) ==
LOC: LAB 10:15
PROVIDERS: PCP Family Medicine; Visit Provider Family Medicine
DX: R73.02 Impaired glucose tolerance (oral) (principal); I10 Essential (primary) hypertension; Z98.84 Bariatric surgery status; Z79.899 Other long term (current) drug therapy; E78.2 Mixed hyperlipidemia
CPT/HCPCS: 36415; 80048; 80076; 82306; 82607; 82728; 82746; 83036; 83540; 84403; 84425; 84436; 84443; 84590; 85025

== ENCOUNTER 2025-10-12 13:09 | Outpatient (OUT) | payer OTHER, SELFPAY ==
--- OUTSIDE RECORDS SUMMARY | 2025-10-12 13:13 | XMS_ITS | Encounter Summary ---
Author Organization [facility] Address [address] [place] [address] Phone Care Team Providers Care Lube Attendant Name Role Phone Johanna Lobitokaylin Kincaid DO Primary Care Provider [phone] Terese Braxton MD Unavailable Terese Braxton MD Unavailable Reason for Visit * ReasonOnset DateCommentsMed Ulbhpz7609/29/2025 Encounter Details DateTypeDepartmentCare Team (Latest Contact Info)Uyuvgyeqcwa29/03/2025Refill [address] [address] Melquiades Ahmadi MA Hypertensive heart disease without CHF Social History Tobacco UseTypesPacks/DayYears UsedDateSmoking Tobacco: Every DayCigarettes Smokeless Tobacco: Former Comments:vape Alcohol UseStandard Drinks/WeekCommentsNot Currently0 (1 standard drink = 0.6 oz pure alcohol)socialPHQ-2AnswerDate RecordedPatient Health Questionnaire-2 Score0 3CommentsUnknownSex and Gender InformationValueDate RecordedSex Assigned at RxblgFmhimf83/15/2024 11:59 AM EDTLegal JklKnnapn80/25/2022 1:33 PM ESTGender ZkpdxqofSuzbij62/15/2024 11:59 AM EDTSexual OrientationStraight 02/10/2024 11:59 AM EDTdocumented as of this encounter Plan of Treatment DateTypeDepartmentCare Team (Latest Contact Info)Goasffdpzba82/07/2026 2:30 PM EDTOffice Visit [facility] [address] [address] Terese Braxton MD 7 [facility] [address] [place] [address] documented as of this encounter Visit Diagnoses Diagnosis Hypertensive heart disease without CHF documented in this encounter Additional Health Concerns AssessmentNoted TimeA fall risk assessment has been completed for the patient 08/01/2023 11:01 AM EDTdocumented as of this encounter Care Teams Team MemberRelationshipSpecialtyStart DateEnd Date Lobito Spencer DO PCP - GeneralFamily Medicine02/10/24 Terese Braxton MD [address] [place] [phone] PCP - [facility] PCP08/28/24 Terese Braxton MD [address] [place] [phone] PCP - [facility] Medicaid PCP01/26/25documented as of this encounter
--- OUTSIDE RECORDS SUMMARY | 2025-10-12 13:13 | XMS_ITS | Clinical Summary ---
Author Organization [employer] Address [id number] [address] [place] [address] Care Team Providers Care Wheel Blocker Name Role Phone Lobito Spencer DO Primary Care Provider [phone] Allergies Active AllergyReactionsCriticalityNoted DateCommentsAdhesive Tape-SiliconesRash Low11/20/2023spirinOther (See Comments)High07/31/2023 Gastric bypass - Lifelong avoidance of all NSAIDs advised to reduce risk of anastomotic ulcer formation. 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 OtherOther (See Comments)Exrkgm5711/06/2023 Rash from silk tape/bandaids BawkvaalWgptvInythc91/13/2023SertralineOther (See Comments)11/20/2023 Mood swings Medications MedicationSigDispense QuantityRefillsLast FilledStart DateEnd DateStatus albuterol (PROVENTIL,VENTOLIN) 2.5 mg /3 mL (0.083 %) nebulizer solution INHALE 3 (THREE) mL (1 (ONE) vial) VIA NEBULIZER NEEDED FOR WHEEZING EVERY 4 HOURS01/18/2023ctive VENTOLIN HFA 90 mcg/actuation inhaler INHALE 2 PUFFS BY MOUTH NEEDED FOR WHEEZING EVERY 4 HOURS01/18/2023ctive diclofenac sodium (VOLTAREN) 1 % gel 01/18/2023ctive hydroCHLOROthiazide (HYDRODIURIL) 50 mg tablet Take 1 tablet (50 mg total) by mouth daily. As pgcbvp8601/18/2023ctive lisinopriL (PRINIVIL,ZESTRIL) 40 mg tablet Take 10 mg by mouth in the morning.01/21/2023ctive montelukast (SINGULAIR) 10 mg tablet Take 1 tablet (10 mg total) by mouth nightly.01/18/2023ctive rosuvastatin (CRESTOR) 40 mg tablet Take 0.5 tablets (20 mg total) by mouth nightly.01/18/2023ctive fluticasone propionate (FLOVENT HFA) 220 mcg/actuation inhaler Inhale 1 puff in the morning and 1 puff before bedtime.Active acetaminophen (TYLENOL EXTRA STRENGTH) 500 mg tablet Take 2 tablets (1,000 mg total) by mouth in the morning and 2 tablets (1,000 mg total) before bedtime.Active omeprazole (PriLOSEC) 40 mg capsule Take 1 capsule (40 mg total) by mouth every morning before breakfast. 90 capsule ctive Additional Information Patient not taking.Reported on 11/19/2024 cholecalciferol, vitamin D3, 50,000 units tablet Indications:Vitamin D deficiencyTake 1 tablet (50,000 Units total) by mouth once a week. 12 tablet 11/26/2023ctive ondansetron (ZOFRAN) 4 mg tablet Indications:Post-operative nausea and vomitingTake 1 tablet (4 mg total) by mouth every 6 (six) hours as needed for nausea or vomiting (post op nausea). 30 tablet ctive Additional Information Patient not taking.Reported on 11/19/2024 PNV,calcium 99-ueso-zpcgl acid ( VITAMIN PLUS LOW IRON) 27 mg iron- 1 mg tablet Indications:Postsurgical malabsorption,Malnutrition following gastrointestinal surgery,History of Angela-en-Y gastric bypassTake 1 tablet by mouth in the morning. 90 tablet ctive spironolactone (ALDACTONE) 25 mg tablet Take 1 tablet (25 mg total) by mouth in the morning.Active magnesium oxide (MAGOX) 400 mg tablet Take 1 tablet (400 mg total) by mouth.5Active VITAMIN PLUS LOW IRON 27 mg iron- 1 mg tablet Indications:Morbid obesity (CMS-HCC),Pre-op testingTAKE 1 TABLET BY MOUTH IN THE MORNING 90 tablet 5Active cyanocobalamin (VITAMIN B12) 1,000 mcg tablet, sublingual Indications:Postsurgical malabsorption,Malnutrition following gastrointestinal surgery,History of Angela-en-Y gastric bypassPlace 1 tablet (1,000 mcg total) under the tongue in the morning. 90 tablet 5Active Active Problems ProblemNoted DateDiagnosed DatePostsurgical ypbhfuhzrwydc50/30/2024Malnutrition following gastrointestinal ivmlfxf9311/26/2023History of Angela-en-Y gastric bypass 11/26/2023Vitamin D tdnypmrggk84/30/2024ost-operative nausea and vomiting 11/26/2023Morbid obesity with BMI of 50.0-59.9, adult11/20/2023rimary vpectnwesoep98/13/0253Cyqiktfohadkig35/13/2023 Immunizations ImmunizationAdministration DatesNext DueHepatitis B012/23/2015Influenza, Im Trivalent Rtucgvcwqplo80/26/2016,06/25/1994Tdap12/23/2015,06/23/2014 Social History Tobacco UseTypesPacks/DayYears UsedDateSmoking Tobacco: Some DaysCigarettesLast attempted to quit: 2022Smokeless Tobacco: Never Tobacco Cessation:Ready to Q uit: Not Asked; Counseling Given: Not Answered Alcohol UseStandard Drinks/WeekCommentsNot Currently0 (1 standard drink = 0.6 oz pure alcohol)socialAUDIT-CAnswerDate RecordedQ1: How often do you have a drink containing alcohol?Monthly or less11/20/2023Q2: How many drinks containing alcohol do you have on a typical day when you are drinking?1 or Q3: How often do you have six or more drinks on one occasion?Never11/20/2023HQ-2 AnswerDate RecordedTotal Zuxwp76711/20/2023hildcareAnswerDate RecordedChildcare Xnbplby7204/06/2019EmploymentAnswerDate UusliexdHkatutgeloBshaonp42/10/2019Hunger ScreeningAnswerDate RecordedWithin the past 12 months we worried whether our food would run out before we got money to buy more.Never True11/26/2023Within the past 12 months the food we bought just didn't last and we didn't have money to get more.Never True11/26/2023CommentsNoSex and Gender Information ValueDate RecordedSex Assigned at BirthNot on fileLegal XneXqgabn08/04/2015 12:08 PM EDTGender IdentityNot on fileSexual OrientationNot on file Last Filed Vital Signs Vital SignReadingTime TakenCommentsBlood Eqjrlpag069/7411/19/2024 1:00 PM EST Hinea957011/19/2024 1:00 PM LJQFdpuisgveyp59 ??C (98.6 ??F)11/21/2023 4:57 AM EST Respiratory Xjte983004/16/2024 2:09 PM EDTOxygen Hvndbfcomh29%11/26/2023 8:47 AM ESTInhaled Oxygen Concentration--Ppxsuh95.6 kg (190 lb 14.4 oz)11/19/2024 1:00 PM EEXCgecon473.5 cm (5' 2.01 )11/19/2024 1:00 PM ESTBody Mass Index34.91 11/19/2024 1:00 PM EST Plan of Treatment DateTypeDepartmentCare Team (Latest Contact Info)Cculshcjtka20/22/2026 1:00 PM ESTOffice Visit [facility] [address] [place] [address]. [address] [place] [address] Campbell Kidd MD [address] [facility] [address] [place] [address] Yoli Kohler PA-C [address] [facility] [address] [place] [address] Health MaintenanceDue DateLast DoneCommentsTobacco Qdowqhteyb1967Zoster (Shingles) Vaccine (1 of 2)2017Depression Dxvsypnug65 Adult BMI Follow Up Plan5011/26/2023Influenza Gjnundv5106/28/2025 12/23/2015, 06/25/1994Adult BMI Kjartwurn61Tobacco Screening DTaP,Tdap and Td Vaccines (3 - Td or Tdap)12/23/2025 12/23/2015, 06/23/2014 Medical Devices Not on file Insurance [address] [place] [address] Advance Directives * Full Code (Latest Code Status on File) Date ActivatedDate InactivatedComments11/20/2023 10:49 AM11/21/2023 1:27 PM Care Teams Team MemberRelationshipSpecialtyStart DateEnd Date Lobito Spencer DO PCP - GeneralFamily Medicine03/13/23
--- OUTSIDE RECORDS SUMMARY | 2025-10-12 13:13 | XMS_ITS | Clinical Summary ---
Author Organization [facility] Address [address] [address] Phone Care Team Providers Care Comic Book Artist Name Role Phone JohannaElierkaylin Kincaid DO Primary Care Provider [phone] Terese Braxton MD Unavailable Terese Braxton MD Unavailable Allergies Active AllergyReactionsCriticalityNoted LwydTbvhfhlxXngznybRlntbjfIcvv41/04/2023 Bee Venom Protein (Honey Bee)SgrwcqavTpwl41/04/2023efuroxime AxetilRashLow 07/31/20238398KgvprkxxewMlraxbdiktMezwie68/04/4974GtknrCbxfSjpkoz92/04/2023Nsaids (Non-Steroidal Anti-Inflammatory Drug)TuylnydZxki75/04/2023TramadolHivesMedium 07/31/20239743GdqkhtthexKnqexqrisPtge01/04/2023 Medications MedicationSigDispense QuantityRefillsLast FilledStart DateEnd DateStatus acetaminophen (Tylenol) 500 mg tablet Take 1 tablet (500 mg) by mouth. Every 4-6 hours as neededActive omeprazole (PriLOSEC) [address] capsule Take 1 capsule (40 mg) by mouth 2 times a day. Do not crush or chew.Active montelukast (Singulair) 10 mg tablet Take 1 tablet (10 mg) by mouth once daily.Active albuterol 90 mcg/actuation inhaler Inhale 1-2 puffs. 4-6 hours as neededActive NCD306-bheuuun fumarate-FA () 28-800 mg-mcg tablet 03/28/2023ctive cholecalciferol (Vitamin D-3) 50,000 unit capsule Take 1 capsule (50,000 Units) by mouth 1 (one) time per week.01/14/2024ctive calcium citrate-vitamin D3 (Citracal+D) 315 mg-5 mcg (200 unit) tablet Take 1 tablet by mouth 1 (one) time per week.Active lisinopril 20 mg tablet Indications:Hypertensive heart disease without CHFTake 1 tablet (20 mg) by mouth once daily. 90 tablet ctive magnesium oxide (Mag-Ox) 400 mg tablet Indications:Hypertensive heart disease without CHFTake 1 tablet (400 mg) by mouth once daily. 90 tablet ctive rosuvastatin (Crestor) 40 mg tablet Indications:Hyperlipemia, mixedTake 0.5 tablets (20 mg) by mouth once daily. 45 tablet ctive hydroCHLOROthiazide (HYDRODiuril) 50 mg tablet Indications:Hypertensive heart disease without CHFTake 1 tablet (50 mg) by mouth once daily as needed (one tablet daily as needed for swelling). 90 tablet tive spironolactone (Aldactone) 25 mg tablet Indications:Hypertensive heart disease without CHFTake 1 tablet (25 mg) by mouth once daily. 90 tablet ctive spironolactone (Aldactone) 25 mg tablet Indications:Hypertensive heart disease without CHFTake 1 tablet (25 mg) by mouth once daily. 90 tablet Discontinued(Reorder) Active Problems ProblemNoted DateDiagnosed DatePVD (peripheral vascular disease)02/11/2025RBBB 02/11/2025ody mass index (BMI) of 36.0 to 36.9 in adult08/24/2024Hypokalemia 02/10/2024Medication course xdcmaxb5602/10/2024S/P gastric wrtygn1202/10/2024 Encounter to discuss test eoxqhwf4308/01/2023re-ooumgieo54/05/2023VC (premature ventricular contraction)08/01/2023bnormal ECG10/04/2023Clotting disorder 10/04/2023Disturbance, sleep07/31/20231874Ygwakwo55/04/2023Hypertensive heart disease without CHF07/31/2023Hyperlipemia, mixed07/31/2023SOB (shortness of breath)07/31/20237328Utxmwymocony37/04/2023Current every day rwmutj2107/31/2023 Resolved Problems ProblemNoted DateDiagnosed DateResolved DateBMI 45.0-49.9, adult07/31/2023 08/24/2024 Encounters DateTypeDepartmentCare TfqgMzfropoopbs79/04/2025Patient Risk Score [facility] Care Management [address] [place] [address] 09/29/2025Refill [address] [address] Melquiades Ahmadi MA Hypertensive heart disease without CHF08/31/2025Patient Risk Score [facility] Care Management [address] [place] [address] 08/02/2025Refill [address] [place] [address] Rani Hensley CMA Hypertensive heart disease without CHF07/31/2025Patient Risk Score [facility] [place] [address] [place] [address] from Last 3 Months Immunizations ImmunizationAdministration DatesNext DueHepatitis B vaccine, adult *Check Product/Dose*12/23/2015Influenza, seasonal, qmhwzuljej96/26/2016,06/25/1994Tdap vaccine, age 7 year and older (BOOSTRIX, ADACEL)12/23/2015,06/23/2014 Family History Medical HistoryRelationNameCommentshtnBrotherAtrial fibrillationFatherDiabetes FathercvaFatherhtnFatherhtnMotherRelationNameStatusCommentsBrotherFatherMother Social History Tobacco UseTypesPacks/DayYears UsedDateSmoking Tobacco: Every DayCigarettes Smokeless Tobacco: Former Tobacco Cessation:Ready to Q uit: No; Counseling Given: Yes Comments:vape Alcohol UseStandard Drinks/WeekCommentsNot Currently0 (1 standard drink = 0.6 oz pure alcohol)socialPHQ-2AnswerDate RecordedPatient Health Questionnaire-2 Score0 3CommentsUnknownSex and Gender InformationValueDate RecordedSex Assigned at HzlpzYedfop29/15/2024 11:59 AM EDTLegal BspAkdjtz47/25/2022 1:33 PM ESTGender JcqgetkxJmuhuf78/15/2024 11:59 AM EDTSexual OrientationStraight 02/10/2024 11:59 AM EDT Last Filed Vital Signs Vital SignReadingTime TakenCommentsBlood Orhepxgj192/78002/11/2025 2:26 PM EDT Tlbbd512302/11/2025 2:26 PM EDTTemperature--Respiratory Rate--Oxygen Saturation-- Inhaled Oxygen Concentration--Fzvnom66.7 kg (197 lb 12.8 oz)02/11/2025 2:26 PM CGFGmxrzr745.5 cm (5' 2 )02/11/2025 2:26 PM EDTBody Mass Index36.18002/11/2025 2:26 PM EDT Plan of Treatment DateTypeDepartmentCare Team (Latest Contact Info)Ppadovdppyj87/10/2026 2:30 PM EDTOffice Visit [facility] 703 [facility] [address] [place] [address] Terese Braxton MD [address] [facility] [address] [place], [place] [id number] Health MaintenanceDue DateLast DoneCommentsCT Janmrpxlktvp1967Colonoscopy 1967Colorectal Cancer Jbsxbrmjw1967FIT-DNA (Cologuard)1967FIT 1967HIV Iikwactxh1967Lipid Panel1967 3295Eivuriwqqstmo1967 Yearly Adult Wxtmauht1967MMR Vaccines (1 of 1 - Standard series)1968 Diabetes Hovhtsots77/02/1985Hepatitis C Qcxpfzrhn71/02/1985Pneumococcal Vaccine (1 of 2 - PCV)1986Cervical Cancer Yxwvzcabu56/02/1988HPV/Foihmz1603/29/1988 Pap Smear03/29/19889486Tbbkxoyze09/02/2007Hepatitis B Vaccines (2 of 3 - 19+ 3-dose series)Zoster Vaccines (1 of 2)2017Influenza Vaccine (#1), 06/25/1994COVID-19 Vaccine (1 - 2024- season) 2025DTaP/Tdap/Td Vaccines (3 - Td or Tdap), 06/23/2014 HIB VaccinesAged OutNo longer eligible based on patient's age to complete this topicHPV VaccinesAged OutNo longer eligible based on patient's age to complete this topicHepatitis A VaccinesAged OutNo longer eligible based on patient's age to complete this topicIPV VaccinesAged OutNo longer eligible based on patient's age to complete this topicMeningococcal VaccineAged OutNo longer eligible based on patient's age to complete this topicRotavirus VaccinesAged OutNo longer eligible based on patient's age to complete this topic Insurance Care Teams Team MemberRelationshipSpecialtyStart DateEnd Date Lobito Spencer DO PCP - GeneralFamily Medicine02/10/24 Terese Braxton MD [address] [facility] [address] [place] [address] PCP - [facility]jam[facility] monettvincent O PCP08/28/24 Terese Braxton MD [address] [facility] [address] [place] [address] PCP - [facility] Medicaid PCP01/26/25
--- OUTSIDE RECORDS SUMMARY | 2025-10-12 13:13 | XMS_ITS | Clinical Summary ---
Author Organization [facility] Address [address] [place] [address] Care Team Providers Care Instructor Product Inspection Name Role Phone Unavailable Primary Care Provider Unavailabl e Social History Tobacco UseTypesPacks/DayYears UsedDateSmoking Tobacco: Never Assessed CommentsUnknownSex and Gender InformationValueDate RecordedSex Assigned at Not on fileLegal DzjWfpkhd16/15/2023 6:55 PM EDTGender IdentityNot on fileSexual OrientationNot on file Last Filed Vital Signs Vital SignReadingTime TakenCommentsBlood Pressure--Pulse--Temperature-- Respiratory Rate--Oxygen Saturation--Inhaled Oxygen Concentration--Wkfwcm695 kg (291 lb)02/17/2021 12:00 PM GXQKkqucb001.8 cm (5' 2.5 )02/17/2021 12:00 PM EDT Body Mass Index52.38002/17/2021 12:00 PM EDT Plan of Treatment Not on file Insurance
--- OUTSIDE RECORDS SUMMARY | 2025-10-12 13:13 | XMS_ITS | Encounter Summary ---
Author Organization [facility] Address [address] [place] [address] Phone Care Team Providers Care Shipping Track Supervisor Name Role Phone SanyaLobito chapin Codi VELÁSQUEZ Primary Care Provider [phone] Terese Braxton MD Unavailable Terese Braxton MD Unavailable Encounter Details DateTypeDepartmentCare Team (Latest Contact Info)Yzqwrctzder79/04/2025Patient Risk Score [facility] [place] [address] [facility] [address] [place] [address] Social History Tobacco UseTypesPacks/DayYears UsedDateSmoking Tobacco: Every DayCigarettes Smokeless Tobacco: Former Comments:vape Alcohol UseStandard Drinks/WeekCommentsNot Currently0 (1 standard drink = 0.6 oz pure alcohol)socialPHQ-2AnswerDate RecordedPatient Health Questionnaire-2 Score0 3CommentsUnknownSex and Gender InformationValueDate RecordedSex Assigned at UuswyWaemfj78/15/2024 11:59 AM EDTLegal OisZnogwl37/25/2022 1:33 PM ESTGender SofynxgfKofdzh52/15/2024 11:59 AM EDTSexual OrientationStraight 02/10/2024 11:59 AM EDTdocumented as of this encounter Plan of Treatment DateTypeDepartmentCare Team (Latest Contact Info)Xxlgtwwfcik63/10/2026 2:30 PM EDTOffice Visit [facility] [address] [facility] [address] [place] [address] Terese Braxton MD [address] [address] documented as of this encounter Visit Diagnoses Not on filedocumented in this encounter Additional Health Concerns AssessmentNoted TimeA fall risk assessment has been completed for the patient 08/01/2023 11:01 AM EDTdocumented as of this encounter Care Teams Team MemberRelationshipSpecialtyStart DateEnd Date Lobito Spencer DO PCP - Generalmi Medicine02/10/24 Terese Braxton MD [address] [address] PCP - [facility] PCP08/28/24 Terese Braxton MD [address] [address] PCP - [facility] Medicaid PCP01/26/25documented as of this encounter
[2025-10-12 13:44] LABS: Hematocrit 42.7 % (36.0-48.0); Hemoglobin 14.4 g/dL (12.0-16.0); Immature Granulocytes Abs Auto 0.00 10^3/uL (0.00-0.03); Immature Granulocytes Pct Auto 0.0 % (0.0-0.5); Lymphocytes Absolute Auto 2.5 10^3/uL (1.2-3.8); Mean Corpuscular HGB Conc 33.7 g/dL (29.9-35.2); Mean Corpuscular Hemoglobin 30.6 pg (26.7-34.0); Mean Corpuscular Volume 90.9 fL (81.0-99.0); Platelet Count 253 10^3/uL (150-450); Red Blood Count 4.70 10^6/uL (4.20-5.40); White Blood Count 6.1 10^3/uL (4.0-11.0)
[2025-10-12 13:59] LABS: Alanine Aminotransferase 20 U/L (14-59); Albumin Globulin Ratio 1.0; Albumin Level 3.5 g/dL (3.4-5.0); Alkaline Phosphatase 79 U/L (46-116); Anion Gap 12.3; Aspartate Amino Transferase 12 U/L (15-37); Blood Urea Nitrogen 17.0 mg/dL (7.0-18.0); Calcium 9.2 mg/dL (8.5-10.1); Carbon Dioxide 27.4 mmol/L (21.0-32.0); Chloride 107 mmol/L (98-107); Cholesterol 235 mg/dL (<=200); Estimated GFR (African America >60 (>=60 mL/min/1.73m^2); Estimated GFR (Non-African Ame >60 (>=60 mL/min/1.73m^2); Globulin 3.4 g/dL; Glucose 87 mg/dL (74-106); HDL Cholesterol 52 mg/dL (40-60); Potassium 3.7 mmol/L (3.5-5.1); Sodium 143 mmol/L (136-145); Total Protein 6.9 g/dL (6.4-8.2); Triglycerides 194 mg/dL (<=150); VLDL CHOLESTEROL 38.8 mg/dL
== END 2025-10-12 13:10 | disposition home or self-care (01) ==
LOC: LAB 13:11
PROVIDERS: PCP Family Medicine; Visit Provider Family Medicine
DX: E78.00 Pure hypercholesterolemia, unspecified (principal); I10 Essential (primary) hypertension; R73.02 Impaired glucose tolerance (oral)
CPT/HCPCS: 36415; 80048; 80061; 80076; 83036; 85025